=== PATIENT | female | born 1960 | race Caucasian/White ===

== ENCOUNTER → 2017-12-31 00:39 | Outpatient (CLI) | payer MEDICAID, SELFPAY ==
--- NOTE | 2017-12-31 08:20 | DI.REPORT_ITS ---
SYMPTOMS/DIAGNOSIS: SCREENING, Z12.31 MAMMOGRAM: Mammograms were interpreted according to the usual protocol including computer analysis with CAD system, tomosynthesis and C view imaging. The breasts are heterogeneously dense. No dominant mass or clumped microcalcification is identified in either breast. The current examination is compared with previous examinations including November 2015 and there has been no gross interval change in appearance in comparison with the previous studies. CONCLUSION: No specific evidence of malignancy at this time. Routine screening examinations are suggested at yearly intervals in this age group according to the ACS/ACR guidelines. Category I, breast density Category C. MQSA ASSESSMENT OF FINDINGS: Negative. Category 1. Patient will receive a letter notifying them of these results. Bi-RADS category C. The breasts are heterogeneously dense, which may obscure small masses.
== END ==
PROVIDERS: PCP Family Medicine; Visit Provider Nurse Practitioner Family
DX: Z12.31 Encounter for screening mammogram for malignant neoplasm of breast (principal)
CPT/HCPCS: 77063; 77067

== ENCOUNTER 2019-03-22 14:16 | Outpatient (CLI) | payer MEDICAID, SELFPAY ==
[2019-03-22 15:10] LABS: HCT 26.3 % (36.0-46.0); HGB 8.7 g/dL (12.0-15.5); Mean Corp. HGB Concentration 33.1 g/dL (32.0-36.0); Mean Corpuscular Hemoglobin 31.1 pg (27.0-33.0); Mean Corpuscular Volume 93.9 fL (80-95); Mean Platelet Volume 9.7 fL (8.0-11.0); Platelet Count 250 x1000/uL (130-400); RBC Distribution Width 12.6 % (11.7-14.6); White Blood Cell Count 10.33 k/cumm (4.4-10.8)
== END 2019-03-22 14:36 ==
PROVIDERS: PCP Family Medicine; Visit Provider Counselor Mental Health
DX: R53.83 Other fatigue (principal); R19.5 Other fecal abnormalities
CPT/HCPCS: 36415; 85027

== ENCOUNTER 2020-05-18 11:31 | Outpatient (REF) | payer MEDICAID, SELFPAY ==
--- NOTE | 2020-05-18 09:00 | PAPFT_PTH ---
PATIENT: Mary Kay Padgett LOC: [facility] U#:[id number] AGE/SX: 59/F ROOM: RE05/18/[address]: MESHA Castellanos : 1960 BED: DIS: 05/18/2020 SPEC #: [id number] RECD: 05/18/20 12:52 STATUS: MIREYA REJose Miguel #: [id number] YOMAIRA: 05/18/20 09:[address]: Jovita Barnard DEPT: PENDING SALE TO [facility] Cytology RECD BY: Leti Ventura ENTERED: 05/18/20 12:53 SP TYPE: PAPFT OTHR DR: Irving Wheeler Tissues: 1 - CX/ENDOCX FOR PAP SMEARS Procedures: PAP THIN PREP/UVM Screening HPV DNA PROBE Comments: [id number]
== END 2020-05-18 11:51 ==
LOC: LBN 11:31
PROVIDERS: PCP Family Medicine; Visit Provider Nurse Practitioner Family
DX: Z12.4 Encounter for screening for malignant neoplasm of cervix (principal); Z11.51 Encounter for screening for human papillomavirus (HPV)
CPT/HCPCS: 88142; 87624

== ENCOUNTER 2020-05-19 11:56 | Outpatient (CLI) | payer MEDICAID, SELFPAY ==
[2020-05-19 12:21] LABS: Abs Immature Grans 0.01 10^3/uL (0.0-0.06); Absolute Basophil Count 0.03 10^3/uL (0.0-0.2); Absolute Eosinophil Count 0.02 10^3/uL (0.0-0.7); Absolute Lymphocyte Count 1.47 10^3/uL (1.2-3.4); Absolute Monocyte Count 0.28 10^3/uL (0.1-0.8); Absolute Neutrophil Count 3.22 10^3/uL (1.2-6.7); Basophils % 0.6; Eosinophils % 0.4; HCT 38.1 % (36.0-46.0); HGB 12.1 g/dL (11.2-15.7); Immature Grans % 0.2; Lymphocytes % 29.2; MCH 28.5 pg (27.0-33.0); MCHC 31.8 % (32.0-36.0); MCV 89.6 fL (80-95); MPV 9.4 fL (8.0-11.0); Monocytes % 5.6; Nucleated RBC 0 %; Platelet Count 237 10^3/uL (130-400); RBC 4.25 10^6/uL (3.93-5.22); RDW 14.9 % (11.7-14.6); RDW-SD 48.9 fL; WBC 5.03 10^3/uL (4.4-10.8)
[2020-05-19 12:40] LABS: ALT 43 U/L (14-59); AST 18 U/L (15-37); Albumin 3.8 g/dL (3.4-5.0); Alkaline Phosphatase 75 U/L (46-116); Anion Gap 6.8 mmol/L (3-11); BUN 18 mg/dL (7-18); Bilirubin, Total 0.3 mg/dL (0.2-1.0); CO2 27.2 mmol/L (21.0-32.0); Calcium 8.1 mg/dL (8.5-10.1); Chloride 106 mmol/L (98-107); Glucose 94 mg/dL (74-106); Potassium 3.8 mmol/L (3.5-5.1); Sodium 140 mmol/L (136-145); Total Protein 6.7 g/dL (6.4-8.2)
== END 2020-05-19 12:16 ==
PROVIDERS: PCP Family Medicine; Visit Provider Internal Medicine Hematology & Oncology
DX: C49.A3 Gastrointestinal stromal tumor of small intestine (principal)
CPT/HCPCS: 36415; 80053; 85025

== ENCOUNTER 2020-05-31 02:20 | Outpatient (CLI) | payer MEDICAID, SELFPAY ==
--- NOTE | 2020-05-31 07:30 | DI.MAMMO_ITS ---
EXAM: MG MAMMO SCREENING CLINICAL HISTORY: screening,z12.39 TECHNIQUE: Bilateral full field digital CC and MLO mammographic images were obtained with 3D tomosyn thesis and utilizing computer aided detection (CAD). COMPARISON: Available for comparison. FINDINGS: Masses/Architectural Distortion: None seen. Microcalcifications: No suspicious pleomorphic-type are seen. Skin Thickening/Nipple Retraction: None. IMPRESSION: 1. No significant interval change with no specific features of malignancy noted. 2. Unless there is more urgent need, screening mammography is recommended, as per [place] [employer] guidelines. BI-RADS Category 1 - Negative Breast Density - Category C - Heterogeneously dense Breast density category C or D implies that the patient has dense breast tissue. Dense breast tissue is very common and is not abnormal but dense breast tissue can make it harder to find cancer on a ma mmogram. Also, dense breast tissue may increase their breast cancer risk. This information about the result of the mammogram report was provided to the patient to raise their awareness. Use this report when you speak with the patient about their risks for breast cancer, which includes their family hist ory. At that time, you may recommend for more screening tests (Ultrasound or MRI) as they might be us eful based on their risk. A negative radiographic report should not delay biopsy if a dominant or clinically suspicious mass is present. Up to ten percent of cancers are not identified on mammography. A negative report may reinforce clinical impression. Adenosis and dense breasts may obscure an underlying neoplasm. False positive reports average 6 to 10%. Patient will receive a letter notifying them of these results.
== END 2020-05-31 02:40 ==
PROVIDERS: PCP Family Medicine; Visit Provider Nurse Practitioner Family
DX: Z12.31 Encounter for screening mammogram for malignant neoplasm of breast (principal)
CPT/HCPCS: 77063; 77067

== ENCOUNTER 2020-12-01 04:13 | Outpatient (CLI) | payer MEDICAID, SELFPAY ==
[2020-12-01 13:28] LABS: Abs Immature Grans 0.01 10^3/uL (0.0-0.06); Absolute Basophil Count 0.01 10^3/uL (0.0-0.2); Absolute Eosinophil Count 0.05 10^3/uL (0.0-0.7); Absolute Lymphocyte Count 1.48 10^3/uL (1.2-3.4); Absolute Monocyte Count 0.23 10^3/uL (0.1-0.8); Absolute Neutrophil Count 2.97 10^3/uL (1.2-6.7); Basophils % 0.2; Eosinophils % 1.1; HGB 12.8 g/dL (11.2-15.7); Immature Grans % 0.2; Lymphocytes % 31.2; MCH 32.5 pg (27.0-33.0); MCHC 33.7 % (32.0-36.0); MCV 96.4 fL (80-95); MPV 8.9 fL (8.0-11.0); Monocytes % 4.8; Neutrophils % 62.5; Nucleated RBC 0 %; Platelet Count 205 10^3/uL (130-400); RBC 3.94 10^6/uL (3.93-5.22); RDW 13.1 % (11.7-14.6); RDW-SD 47.1 fL; WBC 4.75 10^3/uL (4.4-10.8)
[2020-12-01 13:41] LABS: ALT 48 U/L (14-59); AST 31 U/L (15-37); Albumin 3.9 g/dL (3.4-5.0); Alkaline Phosphatase 57 U/L (46-116); Anion Gap 6.3 mmol/L (3-11); BUN 11 mg/dL (7-18); Bilirubin, Total 0.4 mg/dL (0.2-1.0); CO2 28.7 mmol/L (21.0-32.0); CREATININE 0.6 mg/dL (0.55-1.02); Calcium 8.5 mg/dL (8.5-10.1); Chloride 106 mmol/L (98-107); Glucose 154 mg/dL (74-106); Potassium 3.8 mmol/L (3.5-5.1); Sodium 141 mmol/L (136-145); Total Protein 6.6 g/dL (6.4-8.2)
== END 2020-12-01 04:14 | disposition home or self-care (01) ==
LOC: LBO 04:13
PROVIDERS: PCP Family Medicine; Visit Provider Internal Medicine Hematology & Oncology
DX: C49.A3 Gastrointestinal stromal tumor of small intestine (principal)
CPT/HCPCS: 36415; 80053; 85025

== ENCOUNTER 2020-12-14 04:47 | Outpatient (CLI) | payer MEDICAID, SELFPAY ==
[2020-12-14 17:26] LABS: Abs Immature Grans 0.01 10^3/uL (0.0-0.06); Absolute Basophil Count 0.01 10^3/uL (0.0-0.2); Absolute Eosinophil Count 0.06 10^3/uL (0.0-0.7); Absolute Monocyte Count 0.28 10^3/uL (0.1-0.8); Absolute Neutrophil Count 2.58 10^3/uL (1.2-6.7); Basophils % 0.2; Eosinophils % 1.2; HCT 35.4 % (36.0-46.0); HGB 12.2 g/dL (11.2-15.7); Immature Grans % 0.2; Lymphocytes % 40.5; MCH 32.6 pg (27.0-33.0); MCHC 34.5 % (32.0-36.0); MCV 94.7 fL (80-95); MPV 10.1 fL (8.0-11.0); Monocytes % 5.7; Neutrophils % 52.2; Nucleated RBC 0 %; Platelet Count 201 10^3/uL (130-400); RBC 3.74 10^6/uL (3.93-5.22); RDW 13.5 % (11.7-14.6); RDW-SD 47.1 fL; WBC 4.94 10^3/uL (4.4-10.8)
[2020-12-14 18:16] LABS: ALT 49 U/L (14-59); AST 31 U/L (15-37); Albumin 3.9 g/dL (3.4-5.0); Alkaline Phosphatase 56 U/L (46-116); BUN 12 mg/dL (7-18); Bilirubin, Total 0.3 mg/dL (0.2-1.0); CREATININE 0.6 mg/dL (0.55-1.02); Calcium 8.9 mg/dL (8.5-10.1); Chloride 107 mmol/L (98-107); Glucose 90 mg/dL (74-106); Potassium 3.8 mmol/L (3.5-5.1); Sodium 143 mmol/L (136-145); Total Protein 6.2 g/dL (6.4-8.2)
== END 2020-12-14 04:48 | disposition home or self-care (01) ==
PROVIDERS: PCP Family Medicine; Visit Provider Internal Medicine Hematology & Oncology
DX: C49.A3 Gastrointestinal stromal tumor of small intestine (principal)
CPT/HCPCS: 36415; 80053; 85025

== ENCOUNTER 2020-12-29 02:18 | Outpatient (CLI) | payer MEDICAID, SELFPAY ==
[2020-12-29 12:55] LABS: Absolute Basophil Count 0.02 10^3/uL (0.0-0.2); Absolute Eosinophil Count 0.06 10^3/uL (0.0-0.7); Absolute Lymphocyte Count 1.63 10^3/uL (1.2-3.4); Absolute Monocyte Count 0.32 10^3/uL (0.1-0.8); Absolute Neutrophil Count 2.28 10^3/uL (1.2-6.7); Basophils % 0.5; Eosinophils % 1.4; HCT 34.1 % (36.0-46.0); HGB 11.4 g/dL (11.2-15.7); Lymphocytes % 37.8; MCH 32.8 pg (27.0-33.0); MCHC 33.4 % (32.0-36.0); MPV 8.8 fL (8.0-11.0); Monocytes % 7.4; Neutrophils % 52.9; Nucleated RBC 0 %; Platelet Count 196 10^3/uL (130-400); RBC 3.48 10^6/uL (3.93-5.22); RDW 13.8 % (11.7-14.6); RDW-SD 49.7 fL; WBC 4.31 10^3/uL (4.4-10.8)
[2020-12-29 13:07] LABS: ALT 47 U/L (14-59); AST 29 U/L (15-37); Albumin 3.7 g/dL (3.4-5.0); Alkaline Phosphatase 54 U/L (46-116); Anion Gap 6.3 mmol/L (3-11); BUN 13 mg/dL (7-18); Bilirubin, Total 0.4 mg/dL (0.2-1.0); CO2 28.7 mmol/L (21.0-32.0); CREATININE 0.6 mg/dL (0.55-1.02); Calcium 8.4 mg/dL (8.5-10.1); Chloride 108 mmol/L (98-107); Glucose 128 mg/dL (74-106); Potassium 3.9 mmol/L (3.5-5.1); Sodium 143 mmol/L (136-145); Total Protein 6.1 g/dL (6.4-8.2)
== END 2020-12-29 02:19 | disposition home or self-care (01) ==
LOC: LBO 02:18
PROVIDERS: PCP Family Medicine; Visit Provider Internal Medicine Hematology & Oncology
DX: C49.A3 Gastrointestinal stromal tumor of small intestine (principal)
CPT/HCPCS: 36415; 80053; 85025

== ENCOUNTER 2021-01-19 04:53 | Outpatient (CLI) | payer MEDICAID, SELFPAY ==
--- NOTE | 2021-01-19 | DI.CT_ITS ---
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 TECHNIQUE: Imaging Protocol: Axial computed tomography images with coronal and sagittal reformatted images were created and reviewed CONTRAST MATERIAL: Intravenous: Omnipaque 350 Contrast volume:100 ml Oral: yes / COMPARISON: CT CT ABD AND PELVIS WITH CONTRAS from 11/22/[address] CHEST W/ CNTRST from 07/25/2020 FINDINGS: CHEST: Tracheobronchial tree: Patent where visualized. Mediastinum and [place]: No dominant adenopathy or fluid collection. Pulmonary parenchyma: Stable small peripheral nodules right middle and lower lobes. No new nodules. N o infiltrates. Pleura: No effusion or pneumothorax. Lymph nodes: Within normal limits. Aorta: Thoracic portion non-dilated. Heart: Normal size. Bones: Unremarkable for age. No lytic or blastic lesions. ABDOMEN: Liver: Normal density. No measurable mass. Gallbladder and biliary tract: No radiodense calculus or dilation. Pancreas: Resection of head of pancreas. Adjacent surgical clips. Normal density, no abnormal calcifi cations or inflammatory process. Spleen: Normal. Kidneys: Normal size, contour and axis. No radiodense stones or obstructive uropathy. No masses seen. Adrenal glands: No masses seen. Aorta: Abdominal portion non-dilated. Lymph nodes: Within normal limits. Soft tissues: Unremarkable. Stomach and bowel: Prior resection of portion of stomach and duodenum. Anastomosis appears intact. PELVIS: Bladder: Symmetric distention, no gross wall thickening. Bowel: No obstruction or bowel wall thickening. Transverse, descending and sigmoid colon nearly compl etely empty. Few non-opacified loops of small bowel are present. Normal appendix. Peritoneal cavity: No ascites, collection or mesenteric inflammatory response. Bones: Mild degenerative changes and scoliosis. Reproductive organs: Within normal limits. IMPRESSION: No evidence of adenopathy or metastatic disease in the chest abdomen or pelvis.. RADIATION DOSE DELIVERED: 948.4mGy.cm Total DLP DATA REPOSITORY: All CT scans at this facility are submitted to the National Radiology Data Registry (NRDR) Dose Index Registry (DIR) with the [employer] (ACR). RADIATION OPTIMIZATION: All CT scans at this facility use at least one of these dose optimization te chniques: automated exposure control; mA and/or kV adjustment per patient size (includes targeted exa ms where dose is matched to clinical indication); or iterative reconstruction.
[2021-01-19] MEDS: Omnipaque 350 MG/ML 100 ML BTL IJ (13:20)
[2021-01-19] MEDS: Normal Saline Flush 10 ML SYR IVP (13:21)
[2021-01-19] MEDS: Breeza Beverage 473 ML BTL PO (13:22)
[2021-01-19] MEDS: Omnipaque 350 MG/ML 50 ML BTL PO (13:26)
== END 2021-01-19 05:13 ==
PROVIDERS: PCP Family Medicine; Visit Provider Nurse Practitioner Family
DX: C49.A3 Gastrointestinal stromal tumor of small intestine (principal); D64.9 Anemia, unspecified
CPT/HCPCS: 74177; 71260; J3490; Q9967

== ENCOUNTER 2021-01-26 02:24 | Outpatient (CLI) | payer MEDICAID, SELFPAY ==
[2021-01-26 12:48] LABS: Abs Immature Grans 0.01 10^3/uL (0.0-0.06); Absolute Basophil Count 0.02 10^3/uL (0.0-0.2); Absolute Eosinophil Count 0.02 10^3/uL (0.0-0.7); Absolute Lymphocyte Count 1.52 10^3/uL (1.2-3.4); Absolute Monocyte Count 0.26 10^3/uL (0.1-0.8); Absolute Neutrophil Count 2.17 10^3/uL (1.2-6.7); Basophils % 0.5; Eosinophils % 0.5; HCT 34.9 % (36.0-46.0); HGB 11.8 g/dL (11.2-15.7); Immature Grans % 0.3; MCH 32.8 pg (27.0-33.0); MCHC 33.8 % (32.0-36.0); MCV 96.9 fL (80-95); MPV 9.2 fL (8.0-11.0); Monocytes % 6.5; Neutrophils % 54.2; Nucleated RBC 0 %; Platelet Count 193 10^3/uL (130-400); RDW-SD 50.2 fL
[2021-01-26 13:02] LABS: ALT 40 U/L (14-59); AST 29 U/L (15-37); Albumin 3.7 g/dL (3.4-5.0); Alkaline Phosphatase 53 U/L (46-116); Anion Gap 2.6 mmol/L (3-11); BUN 11 mg/dL (7-18); Bilirubin, Total 0.5 mg/dL (0.2-1.0); CO2 30.4 mmol/L (21.0-32.0); CREATININE 0.7 mg/dL (0.55-1.02); Calcium 8.2 mg/dL (8.5-10.1); Chloride 108 mmol/L (98-107); Glucose 116 mg/dL (74-106); Potassium 3.6 mmol/L (3.5-5.1); Sodium 141 mmol/L (136-145); Total Protein 6.2 g/dL (6.4-8.2)
== END 2021-01-26 02:25 | disposition home or self-care (01) ==
LOC: LBO 02:25
PROVIDERS: PCP Family Medicine; Visit Provider Internal Medicine Hematology & Oncology
DX: C49.A3 Gastrointestinal stromal tumor of small intestine (principal)
CPT/HCPCS: 36415; 80053; 85025

== ENCOUNTER 2021-03-09 03:34 | Outpatient (CLI) | payer MEDICAID, SELFPAY ==
[2021-03-09 13:07] LABS: Absolute Basophil Count 0.01 10^3/uL (0.0-0.2); Absolute Eosinophil Count 0.01 10^3/uL (0.0-0.7); Absolute Lymphocyte Count 1.38 10^3/uL (1.2-3.4); Absolute Monocyte Count 0.24 10^3/uL (0.1-0.8); Absolute Neutrophil Count 2.17 10^3/uL (1.2-6.7); Basophils % 0.3; Eosinophils % 0.3; HCT 33.6 % (36.0-46.0); HGB 11.3 g/dL (11.2-15.7); Lymphocytes % 36.2; MCH 33.4 pg (27.0-33.0); MCHC 33.6 % (32.0-36.0); MCV 99.4 fL (80-95); Monocytes % 6.3; Neutrophils % 56.9; Nucleated RBC 0 %; Platelet Count 174 10^3/uL (130-400); RBC 3.38 10^6/uL (3.93-5.22); RDW 13.9 % (11.7-14.6); RDW-SD 51.4 fL; WBC 3.81 10^3/uL (4.4-10.8)
[2021-03-09 13:34] LABS: ALT 41 U/L (14-59); AST 33 U/L (15-37); Albumin 3.9 g/dL (3.4-5.0); Alkaline Phosphatase 53 U/L (46-116); Anion Gap 5.3 mmol/L (3-11); BUN 10 mg/dL (7-18); Bilirubin, Total 0.6 mg/dL (0.2-1.0); CO2 29.7 mmol/L (21.0-32.0); CREATININE 0.6 mg/dL (0.55-1.02); Calcium 9.1 mg/dL (8.5-10.1); Chloride 105 mmol/L (98-107); Ferritin 90 ng/mL (8-252); Glucose 90 mg/dL (74-106); Potassium 3.7 mmol/L (3.5-5.1); Sodium 140 mmol/L (136-145); Total Protein 6.4 g/dL (6.4-8.2)
[2021-03-09 13:35] LABS: Iron 103 ug/dL (50-170); Total Iron Binding Capacity 277 ug/dL (250-450)
[2021-03-12 01:48] LABS: Vitamin D 25 Total 22.8 ng/mL (30-100)
== END 2021-03-09 03:35 | disposition home or self-care (01) ==
LOC: LBO 03:34
PROVIDERS: PCP Family Medicine; Visit Provider Internal Medicine Hematology & Oncology
DX: C49.A3 Gastrointestinal stromal tumor of small intestine (principal)
CPT/HCPCS: 36415; 80053; 82306; 82728; 83540; 83550; 85025

== ENCOUNTER 2021-04-27 03:11 | Outpatient (CLI) | payer MEDICAID, SELFPAY ==
[2021-04-27 09:41] LABS: Abs Immature Grans 0.01 10^3/uL (0.0-0.06); Absolute Basophil Count 0.02 10^3/uL (0.0-0.2); Absolute Eosinophil Count 0.01 10^3/uL (0.0-0.7); Absolute Lymphocyte Count 0.84 10^3/uL (1.2-3.4); Absolute Monocyte Count 0.41 10^3/uL (0.1-0.8); Absolute Neutrophil Count 1.79 10^3/uL (1.2-6.7); Basophils % 0.6; Eosinophils % 0.3; HCT 36.4 % (36.0-46.0); HGB 12.1 g/dL (11.2-15.7); Immature Grans % 0.3; Lymphocytes % 27.3; MCH 33.6 pg (27.0-33.0); MCHC 33.2 % (32.0-36.0); MCV 101.1 fL (80-95); Monocytes % 13.3; Neutrophils % 58.2; Nucleated RBC 0 %; Platelet Count 183 10^3/uL (130-400); RDW 14.1 % (11.7-14.6); RDW-SD 53.5 fL; WBC 3.08 10^3/uL (4.4-10.8)
[2021-04-27 09:55] LABS: ALT 45 U/L (14-59); AST 31 U/L (15-37); Albumin 3.8 g/dL (3.4-5.0); Alkaline Phosphatase 47 U/L (46-116); BUN 11 mg/dL (7-18); Bilirubin, Total 0.9 mg/dL (0.2-1.0); CREATININE 0.7 mg/dL (0.55-1.02); Calcium 8.5 mg/dL (8.5-10.1); Chloride 104 mmol/L (98-107); Glucose 123 mg/dL (74-106); Sodium 138 mmol/L (136-145); Total Protein 6.8 g/dL (6.4-8.2)
== END 2021-04-27 03:12 | disposition home or self-care (01) ==
LOC: LBO 03:12
PROVIDERS: PCP Family Medicine; Visit Provider Internal Medicine Hematology & Oncology
DX: C49.A3 Gastrointestinal stromal tumor of small intestine (principal); R53.83 Other fatigue
CPT/HCPCS: 36415; 80053; 84443; 85025

== ENCOUNTER 2021-06-04 03:32 | Outpatient (CLI) | payer MEDICAID, SELFPAY ==
[2021-06-04 09:56] LABS: Abs Immature Grans 0.01 10^3/uL (0.0-0.06); Absolute Basophil Count 0.02 10^3/uL (0.0-0.2); Absolute Eosinophil Count 0.05 10^3/uL (0.0-0.7); Absolute Lymphocyte Count 1.53 10^3/uL (1.2-3.4); Absolute Monocyte Count 0.28 10^3/uL (0.1-0.8); Absolute Neutrophil Count 2.62 10^3/uL (1.2-6.7); Basophils % 0.4; Eosinophils % 1.1; HCT 42.3 % (36.0-46.0); Immature Grans % 0.2; Lymphocytes % 33.9; MCH 32.9 pg (27.0-33.0); MCHC 33.1 % (32.0-36.0); MCV 99.3 fL (80-95); MPV 10.3 fL (8.0-11.0); Monocytes % 6.2; Neutrophils % 58.2; Nucleated RBC 0 %; Platelet Count 243 10^3/uL (130-400); RBC 4.26 10^6/uL (3.93-5.22); RDW-SD 44.7 fL; WBC 4.51 10^3/uL (4.4-10.8)
[2021-06-04 10:09] LABS: ALT 46 U/L (14-59); AST 29 U/L (15-37); Alkaline Phosphatase 47 U/L (46-116); Anion Gap 8.9 mmol/L (3-11); BUN 10 mg/dL (7-18); Bilirubin, Total 0.4 mg/dL (0.2-1.0); CO2 28.1 mmol/L (21.0-32.0); CREATININE 0.5 mg/dL (0.55-1.02); Calcium 8.7 mg/dL (8.5-10.1); Chloride 106 mmol/L (98-107); Glucose 87 mg/dL (74-106); Potassium 3.9 mmol/L (3.5-5.1); Sodium 143 mmol/L (136-145); Total Protein 7.1 g/dL (6.4-8.2)
[2021-06-04 11:51] LABS: Iron 83 ug/dL (50-170); Total Iron Binding Capacity 311 ug/dL (250-450); Transferrin Sat 27 % (15-50)
[2021-06-04 12:04] LABS: Ferritin 40 ng/mL (8-252); TSH 2.49 uIU/mL (0.36-3.74)
[2021-06-04 12:14] LABS: Vitamin D 25 Total 51.5 ng/mL (30-100)
== END 2021-06-04 03:33 | disposition home or self-care (01) ==
PROVIDERS: PCP Family Medicine; Visit Provider Internal Medicine Hematology & Oncology
DX: C49.A3 Gastrointestinal stromal tumor of small intestine (principal); D53.9 Nutritional anemia, unspecified; R53.83 Other fatigue
CPT/HCPCS: 36415; 80053; 82306; 82728; 83540; 83550; 84443; 85025

== ENCOUNTER 2021-08-01 01:02 | Outpatient (CLI) | payer MEDICAID, SELFPAY ==
[2021-08-01 08:04] LABS: Abs Immature Grans 0.01 10^3/uL (0.0-0.06); Absolute Basophil Count 0.01 10^3/uL (0.0-0.2); Absolute Eosinophil Count 0.03 10^3/uL (0.0-0.7); Absolute Lymphocyte Count 1.45 10^3/uL (1.2-3.4); Absolute Neutrophil Count 2.62 10^3/uL (1.2-6.7); Basophils % 0.2; Eosinophils % 0.7; HGB 12.9 g/dL (11.2-15.7); Immature Grans % 0.2; Lymphocytes % 32.1; MCH 31.9 pg (27.0-33.0); MCHC 33.1 % (32.0-36.0); MCV 96.3 fL (80-95); MPV 10.2 fL (8.0-11.0); Monocytes % 8.8; Nucleated RBC 0 %; Platelet Count 204 10^3/uL (130-400); RBC 4.05 10^6/uL (3.93-5.22); RDW 13.3 % (11.7-14.6); RDW-SD 47.8 fL; WBC 4.52 10^3/uL (4.4-10.8)
[2021-08-01 08:33] LABS: ALT 45 U/L (14-59); AST 36 U/L (15-37); Albumin 3.9 g/dL (3.4-5.0); Alkaline Phosphatase 47 U/L (46-116); BUN 14 mg/dL (7-18); Bilirubin, Total 0.5 mg/dL (0.2-1.0); CREATININE 0.5 mg/dL (0.55-1.02); Calcium 8.5 mg/dL (8.5-10.1); Chloride 107 mmol/L (98-107); Glucose 98 mg/dL (74-106); Potassium 4.5 mmol/L (3.5-5.1); Sodium 142 mmol/L (136-145); Total Protein 6.8 g/dL (6.4-8.2)
[2021-08-01] MEDS: Omnipaque 350 MG/ML 50 ML BTL IJ (09:10)
--- NOTE | 2021-08-01 09:43 | DI.CT_ITS ---
Exam(s) CT CHEST/ABD/PEL W EXAM: CT CHEST/ABD/PEL W CLINICAL HISTORY: GI STROMMAL TUMOR,ANEMIA,VIT D DEF,ASSESS TREATMENT RESPONSE,C49.A3. TECHNIQUE: Imaging Protocol: Axial computed tomography images with coronal and sagittal reformatted images were created and reviewed CONTRAST MATERIAL: Intravenous: Omnipaque 350 Contrast volume:100 ml Oral: Yes. Contrast was also administered for bowel opacification. COMPARISON: CT CT CHEST/ABD/PEL W from 01/19/2021 FINDINGS: CHEST: LUNGS: There is an unchanged by 4 millimeter pleural based nodule in the lateral basal segment of the right lower lobe, unchanged. Also unchanged a 3 millimeter noncalcified pleural-based nodule in the lateral aspect of the right middle lobe. There are no new right lung findings. No new left lung fi ndings. No new findings in trachea and mainstem bronchi. There are no pleural effusions. MEDIASTINUM: There is no hilar nor mediastinal adenopathy. Nodules again noted in both thyroid lobes. CARDIAC: Heart size is normal. There is no pericardial effusion.Caliber of the thoracic aorta is wit hin normal limits. OSSEOUS: No significant osseous lesions.. ABDOMEN: There is no ascites. LIVER: There are no focal hepatic lesions nor dilatation of intrahepatic ducts. GALLBLADDER/BILIARY: Gallbladder is again noted to be surgically absent. PANCREAS: Again noted is evidence of resection of the pancreatic head and gastrojejunostomy. Also bi liary-enterostomy. Pancreatic duct diameter is slightly prominent but unchanged no new pancreatic ma sses. No new regional adenopathy the evident. No new vascular encasement. SPLEEN: Spleen is not enlarged. There are no intrasplenic lesions. Splenic and portal veins are browne nt. ADRENALS: There are no significant adrenal masses. KIDNEYS: No calculi nor hydronephrosis. No solid renal masses. No cysts evident. ABDOMINAL AORTA: Abdominal aorta is not enlarged. LYMPH NODES: There is no retroperitoneal nor paraaortic adenopathy. ABDOMINAL WALL: No evidence of significant anterior abdominal wall nor inguinal hernia. GI: There is no evidence of bowel obstruction. PELVIS: LYMPH NODES: There is no intrapelvic nor inguinal adenopathy. GI: No evidence of appendicitis.No evidence of sigmoid diverticulitis. URINARY BLADDER: No calculi nor masses evident REPRODUCTIVE: Uterus and adnexal regions appear unchanged. There are dilated bilateral periuterine v eins which drain into prominent bilateral gonadal veins. On the left side this enlarged gonadal vein drains into the left renal vein. On the right side the enlarged gonadal vein drains into the right renal vein just proximal to its joining the IVC. There is no free fluid in the pelvis. OSSEOUS: No significant osseous lesions. IMPRESSION: 1. Continued stable appearance with benign-appearing right lung findings again noted and no evidence of new metastatic disease in the chest, abdomen, and pelvis. There is no abnormal tissue or adenopat hy in the region of the resected pancreatic head. Gallbladder surgically absent. 2. Bilateral pelvic congestion syndrome again noted. There are dilated veins on both sides of the ut erus and these drain into dilated gonadal veins on each side which then cells drain into the bilatera l renal veins. This finding is also unchanged. RADIATION DOSE DELIVERED: 1,078.24mGy.cm Total DLP DATA REPOSITORY: All CT scans at this facility are submitted to the National Radiology Data Registry (NRDR) Dose Index Registry (DIR) with the [employer] (ACR). RADIATION OPTIMIZATION: All CT scans at this facility use at least one of these dose optimization te chniques: automated exposure control; mA and/or kV adjustment per patient size (includes targeted exa ms where dose is matched to clinical indication); or iterative reconstruction.
[2021-08-01] MEDS: Omnipaque 350 MG/ML 100 ML BTL IJ (09:44)
[2021-08-01] MEDS: Normal Saline Flush 10 ML SYR IVP (09:48)
[2021-08-02 05:27] LABS: Vitamin D 25 Total 36.6 ng/mL (30-100)
== END 2021-08-01 01:22 ==
PROVIDERS: PCP Family Medicine; Visit Provider Internal Medicine Hematology & Oncology
DX: C49.A3 Gastrointestinal stromal tumor of small intestine (principal); E55.9 Vitamin D deficiency, unspecified; D53.9 Nutritional anemia, unspecified
CPT/HCPCS: 74177; 80053; 82306; 71260; 85025; J3490; Q9967

== ENCOUNTER 2021-11-13 03:32 | Outpatient (CLI) | payer MEDICAID, SELFPAY ==
[2021-11-13 12:35] LABS: Abs Immature Grans 0.01 10^3/uL (0.0-0.06); Absolute Basophil Count 0.02 10^3/uL (0.0-0.2); Absolute Eosinophil Count 0.09 10^3/uL (0.0-0.7); Absolute Lymphocyte Count 1.42 10^3/uL (1.2-3.4); Absolute Monocyte Count 0.28 10^3/uL (0.1-0.8); Absolute Neutrophil Count 2.92 10^3/uL (1.2-6.7); Basophils % 0.4; Eosinophils % 1.9; HCT 35.6 % (36.0-46.0); HGB 12.2 g/dL (11.2-15.7); Immature Grans % 0.2; MCH 32.8 pg (27.0-33.0); MCHC 34.3 % (32.0-36.0); MCV 96 fL (80-95); Monocytes % 5.9; Neutrophils % 61.6; Platelet Count 190 10^3/uL (130-400); RBC 3.72 10^6/uL (3.93-5.22); RDW 13.2 % (11.7-14.6); RDW-SD 46.9 fL; WBC 4.74 10^3/uL (4.4-10.8)
[2021-11-13 12:54] LABS: ALT 54 U/L (14-59); AST 33 U/L (15-37); Albumin 3.9 g/dL (3.4-5.0); Alkaline Phosphatase 46 U/L (46-116); Anion Gap 7.7 mmol/L (3-11); BUN 16 mg/dL (7-18); Bilirubin, Total 0.3 mg/dL (0.2-1.0); CO2 28.3 mmol/L (21.0-32.0); CREATININE 0.6 mg/dL (0.55-1.02); Chloride 103 mmol/L (98-107); Glucose 88 mg/dL (74-106); Potassium 3.7 mmol/L (3.5-5.1); Sodium 139 mmol/L (136-145); Total Protein 6.5 g/dL (6.4-8.2)
== END 2021-11-13 03:33 | disposition home or self-care (01) ==
LOC: LBO 03:32
PROVIDERS: PCP Family Medicine; Visit Provider Internal Medicine Hematology & Oncology
DX: C49.A3 Gastrointestinal stromal tumor of small intestine (principal)
CPT/HCPCS: 36415; 80053; 85025

== ENCOUNTER → 2022-02-01 00:21 | Outpatient (CLI) | payer MEDICAID, SELFPAY ==
--- OUTSIDE RECORDS SUMMARY | 2022-02-01 00:23 | XMS_ITS | Clinical Summary ---
:1960 Author Organization [facility] [place] [address] Care Team Providers Name Role Phone Irving Wheeler MD Primary Care Provider [phone] Allergies No known active allergies Medications Medication Sig Dispensed Refills Start Date End Date Status cholecalciferol, Take 4,000 Units 0 Active Vitamin D3, 50 mcg by mouth daily. (2,000 unit) Capsule ferrous sulfate (IRON Take 50 mg by 0 Active ORAL) mouth daily. Actually chelated amino acid Iron omeprazole (PriLOSEC) Take 1 capsule by 90 capsule 3 0 Active 40 mg Capsule, mouth daily. Delayed Release(E.C.) Additional Information Patient not taking. Reported on 08/03/2021 multivitamin (THERAGRAN) Take 1 tablet by mouth 0 Active Tablet daily. traMADoL (Ultram) 50 mg 1 tablet 0 03/01/2020 Active Tablet sucralfate (Carafate) 1 Every 6 hours. 0 07/28/2019 Active gram Tablet qajigo-tqujvplc-cdbdtmw as directed 0 03/01/[address] (Audrey 24) 24,000-76,000 -120,000 unit Capsule, Delayed Release(E.C.) esomeprazole (NexIUM) 40 Every 12 hours. 0 0 Active mg Capsule, Delayed Release(E.C.) docusate sodium (Colace) 1 capsule 0 03/29/2020 Active 100 mg Capsule acetaminophen (Tylenol) 2 tablets 0 03/01/2020 Active 500 mg Tablet imatinib (Gleevec) 100 mg Take 2 tablets (200 mg) by 120 tablet 5 11/13/2021 Active tabletIndications: mouth daily. Take with food adjuvant therapy of and a large glass of water CD117+ gastrointest to decrease stomach stromal tumor irritation. Indications: adjuvant therapy following surgical removal of Kit (CD117) positive gastrointestinal stromal tumor Active Problems Problem Noted Date Moderate protein-calorie malnutrition 03/29/2020 Gastroparesis 02/29/2020 Overview: Post-whipple Gastroparesis / Delayed Gas tric Emptying GIST (gastrointestinal stromal tumor), malignant 02/07 Anemia 12/07/2019 Disorder of thyroid gland 12/07/2019 Arthritis 12/07/2019 Tinnitus 12/07/2019 Vitamin D deficiency 12/07/2019 Osteoarthrosis 12/07/2019 Malignant gastrointestinal stromal tumor (GIST) of sma ll intestine 12/04/2019 Resolved Problems Problem Noted Date Resolved Date Neutropenic fever 02/01/2020 02/04/2020 Encounters Date Type Specialty Care Team Description 11/13/2021 TH Visit Hematology and Morris Dozier stinal stromal tumor (GIST) of duodenum; (TeleHealth) Oncology MD Angel Vitamin D defic iency 11/13/2021 Telephone Hematology and [facility] Medication Refill Oncology Esthela RN (imatinib) 11/13/2021 Specialty Pharmacy [facility] Marielena Anaya [facility] from Last 3 Months Immunizations Name Administration Dates Next Due Influenza Vaccine PF, Quadrivalent 03/01/2020 Moderna Covid-19 (Irrigation Manager 100mcg) Vaccine 03/10/2021 Social History Tobacco Use Types Packs/Day Years Used Date Former Smoker Cigarettes 0.5 Quit: 1994 Smokeless Tobacco: Never Used Comments: never vape Alcohol Use Standard Drinks/Week Comments Not Currently 0 (1 standard drink = 0.6 oz pure alcoho l) none since 05/12/2019 Alcohol Habits Answer Date Recorded How often do you have a drink containing alcohol? Not asked How many drinks containing alcohol do you have on a Not aske d typical day when you are drinking? How often do you have six or more drinks on one Not asked occasion? Comment: none since 05/12/2019 11/25/2019 Sex Assigned at Date Recorded Not on file Last Filed Vital Signs Vital Sign Reading Time Taken Comments Blood Pressure 108/60 08/07/2021 1:49 PM EDT Pulse 62 08/07/2021 1:49 PM EDT Temperature 36.1 ??C (97 ??F) 08/07/2021 1:49 PM EDT Respiratory Rate 16 08/07/2021 1:49 PM EDT Oxygen Saturation 100% 08/07/2021 1:49 PM EDT Inhaled Oxygen Concentration - - Weight 51.2 kg (112 lb 12.8 oz) 08/07/2021 1:49 PM EDT Height 160 cm (5' 2.99) 08/07/2021 1:49 PM EDT Body Mass Index 19.99 08/07/2021 1:49 PM EDT Plan of Treatment Upcoming Encounters Date Type Specialty Care Team Description 02/15/2022 Office Visit Hematology and Oncology Morris Dozier MD [facility] ONCOLOGY [place], [place] [address] (Wo rk) Health Maintenance Due Date Last Done Comments HIV screen 1980 Hepatitis C Screening 1980 Tdap adult 1981 Tetanus vaccine 1981 HPV test 1992 PAP Smear 1992 Breast Cancer Share Decision Needed 2002 Colonoscopy 2007 Breast Cancer screening 2012 Zoster vaccine (1 of 2) 2012 Advance Directive 2017 Covid-19 Vaccine (2 - Moderna series) 04/07/2021 03/10/2021 Influenza (Flu) vaccine (1 of 1 - Influenza standard 01/10/2022 03/01/2020 series) Goals Goal Patient Goal Associated Recent Patient-Stated? Author Type Problems Progress DH Home Medication Patient No Tamera ky, Compliance and Facing Brandt Morin Understanding Action Plan [facility] Note: Formatting of this note might be d ifferent from the original. Remain 95% adherent to Imatinib therapy without significant neutropenia as assessed by CBC labs in clinic every 1 to 3 months Medical Devices Implanted Type Area Pneumatic Tube Repairer Device Identifier Shelf Model / Expiration Serial / Date Lot Mesh,Hrna,Sepraf,6x5in ([id number]) - [id number] IMPLANTS N/A: [employer] [facility] - [id number] 03/11/2022 [id number] / Implanted: Qty: 1 on 02/23/2020 by Emely Galdamez MD at [facility] Abdomen SANOFI / [id number] Procedures Procedure Name Priority Date/Time Associated Diagnosis Comme nts LAB SCAN 11/13/2021 12:00 AM Results for this EDT procedure are i n the results section . from Last 3 Months Results SCAN DOC: LAB (11/13/2021 12:00 AM EDT) Narrative This result has an attachment that is no t available. Unknown MEDIA MGR SCAN EXT ORDR/RSLT from Last 3 Months Insurance Payer Benefit Plan / Subscriber ID Effective Dates Phone Addre ss Type Group [place] [id number] 2021-Prese [phone] [address] [facility] nt [facility] [id number] Advance Directives Latest Code Status on File Code Status Date Activated Date Inactivated Comments Attempt Cardiopulmonary Resuscitation 03/24/2020 5:01 PM 020 3:54 PM - Inpatient Code Status decision made by: Patient Attempt Cardiopulmonary Resuscitation - 02/23/2020 2:41 PM 03/01 2:48 PM Inpatient Code Status decision made by: Patient Attempt Cardiopulmonary Resuscitation - 02/01/2020 8:00 PM 020 8:08 PM Inpatient Code Status decision made by: Patient Care Teams Diesel Fleet Mechanic Relationship Specialty Start Date End Date Irving Wheeler MD PCP - General 06/23/19 [address] [place] [address]
--- OUTSIDE RECORDS SUMMARY | 2022-02-01 00:23 | XMS_ITS | Encounter Summary ---
:1960 Author Organization [facility] [address] Care Team Providers Name Role Phone Irving Wheeler MD Primary Care Provider [phone] Reason for Visit Reason Comments Medication Refill Encounter Details Date Type Department Care Team Description 11/13/2021 Specialty Pharmacy [place] [facility] [place] [address] Social History Tobacco Use Types Packs/Day Years [...] Assigned at Date Recorded Not on file documented as of this encounter Progress Notes Marielena Galdamez [facility] - 11/13/2021 9:39 AM EDT Clinical Management Plan: Refill Specialty Pharmacy Consultation; Marielena Galdamez [facility] Comprehensive Medication Management (CMM) Mary Kay Manciay Ms. Mary Kay Gonzalez is a 61 y.o. (1960) female who was contacted in regard to a specialty medication refill reminder. Contact made with patient regarding Imatinib. A review of the medication therapy was performed. The medication was refilled as scheduled, and all medication related questions and concerns were addressed. The specialty pharmacy staff will follow up with the patient 5-7 days prior to next refill. Was a change made to the Care Plan: No Allergies and Drug intolerance: No Known Allergies Medication Reconciliation Discrepancies (compared to [facility] med list) No Specialty Pharmacy Refill Questionnaire Refill Questionnaire 11/13/2021 What is the name of the specialty medication you are refilling? Imatinib Are you taking any new medications? No Any new medical condition? No Any new allergies? No Any new side effects that are bothersome? No Please explain - What date will you need this fill by? 11/17/2021 Adherence: Any missed doses? No Patient understands no changes to current drug regimen were made. Marielena Galdamez RPH 11/13/21 9:43 AM Electronically signed by Marielena Galdamez [facility] at 11/13/2021 9:43 AM EDT documented in this encounter Plan of Treatment Upcoming Encounters Date Type Specialty Care Team Description 02/15/2022 Office Visit Hematology and Oncology Morris Dozier MD [facility] ONCOLOGY [place] [address] (Wo rk) documented as of this encounter Goals Goal Patient Goal Associated Recent Patient-Stated? Author Type Problems Progress DH Home Medication Patient No Tamera calvillo, Compliance and Facing Brandt Morin Understanding Action Plan [facility] Note: Formatting of this note might be d ifferent from the original. Remain 95% adherent to Imatinib therapy without significant neutropenia as assessed by CBC labs in clinic every 1 to 3 months documented as of this encounter Visit Diagnoses Not on filedocumented in this encounter Care Teams Canceling And Cutting Control Clerk Relationship Specialty Start Date End Date Irving Wheeler MD PCP - General 06/23/[address] [place] [id number] documented as of this encounter
--- OUTSIDE RECORDS SUMMARY | 2022-02-01 00:23 | XMS_ITS | Encounter Summary ---
:1960 Author Organization [facility] [place] [address] Care Team Providers Name Role Phone Irving Wheeler MD Primary Care Provider [phone] Reason for Visit Reason Onset Date Comments Medication Refill 11/13/2021 imatinib Encounter Details Date Type Department Care Team Description 11/13/2021 Telephone Hematology/Oncology at [facility], Medication Refill [facility] RN (imatinib) [address] [place] [address] Social History Tobacco Use Types Packs/Day Years [...] on file documented as of this encounter Miscellaneous Notes Telephone Encounter - Katherin Corona RN - 11/13/2021 3:10 PM EDT .Oral Chemotherapy Check Note 11/13/2021 Mary Kaymisty Gonzalez, 1960 Prescriptions for oral chemotherapy were reviewed as follows: Oral Chemotherapy Order imatinib (Gleevec) 100 mg tablet: Order details: ?? Dose: 200 mg (100 mg tab) ?? Route: oral ?? Quantity to be dispensed #: 60 ?? Number of refills: 5 ?? Instructions: Take 2 tablets (200 mg) by mouth daily. Take with food and a large glass of water to decrease stomach irritation. ?? Cycle number and length: ongoing ?? Start date: Already on Plan of care compared to information in the medical record, including note from provider on 11/13/21 (date). The prescription was found To be complete and accurate. It was e[facility]. documented in this encounter Plan of Treatment Upcoming Encounters Date Type Specialty Care Team Description 02/15/2022 Office Visit Hematology and Oncology Morris Dozier MD [facility] [address] ONCOLOGY [place], [place] [address] (Wo rk) documented as of this encounter Goals Goal Patient Goal Associated Recent Patient-Stated? Author Type Problems Progress Home Medication Patient No Tamera calvillo, Compliance and Facing Brandt Morin Understanding Action Plan [facility] Note: Formatting of this note might be d ifferent from the original. Remain 95% adherent to Imatinib therapy without significant neutropenia as assessed by CBC labs in clinic every 1 to 3 months documented as of this encounter Visit Diagnoses Not on filedocumented in this encounter Care Teams Captain/Check Airman Relationship Specialty Start Date End Date Irving Wheeler MD PCP - General 06/23/[address] [place] [id number] documented as of this encounter
--- OUTSIDE RECORDS SUMMARY | 2022-02-01 00:24 | XMS_ITS | Encounter Summary ---
:1960 [place] [address] Care Team Providers Name Role Phone Irving Wheeler MD Primary Care Provider [phone] Reason for Visit Reason Comments Medication Management Patient Education Encounter Details Date Type Department Care Team Description 07/23/2021 Specialty Pharmacy Pharmacy at [facility] Marielena Anaya RPH Managem ent; [place] [id number] Social History Tobacco Use Types Packs/Day Years [...] of this encounter Progress Notes Marielena Galdamez RPH - 07/23/2021 3:41 PM EDT Specialty Pharmacy Consultation; Marielena Galdamez RPH Comprehensive Medication Management (CMM): Specialty Consult, Opt Out Mary Kay Manciay Diagnosis: GIST Therapy Start Date: 12/31/19 Contact in person or via telephone: phone Ms. Mary Kay Gonzalez is a 61 y.o. (1960) female who was contacted in regard to specialty medication. Spoke with patient regarding Imatinib. A review of the medication therapy was performed. The medication was refilled as scheduled, and all medication related questions and concerns were addressed. The specialty pharmacy staff will follow up with the patient 7 days prior to next refill. Is the patient willing to proceed with the Clinical Assessment? No Summary and Recommendations: The patient was feeling well today and not experiencing any side effects such as nausea, rash, or edema. She feels much better after her recent dose reduction last month and understands that it could change again. Med list reviewed with no major interactions identified. The patient is aware of the importance of lab follow up and infection prevention precautions as well as adherence to treatment. Thepatient was instructed to notify the clinic of any upcoming procedures or new medications and OTC products. Resources are available to the patient from the cancer center such as stem cleaning machine feeder consultation or social media job titles. Administration, allergies, dosage, safe storage reviewed. The pharmacy's contact information and operating hours with on-call services were given to the patient both verbally and in writing. Economic Assessment: Patient is agreeable to medication copay: Yes Copay Amount: $3 Day Supply: 30 Date Needed: 07/31/21 Therapy Assessment: Appropriate Therapy: Yes Current Medication Dosing/Route/Frequency: Imatinib 200mg PO QD Additional equipment/supplies required: no Care Plan Reviewed and Approved by Pharmacist : Yes Problem List: Patient Active Problem List Diagnosis Code ??? 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 Anemia D64.9 ??? Disorder of thyroid gland E07.9 ??? Arthritis M19.90 ??? Tinnitus H93.19 ??? Vitamin D deficiency E55.9 ??? Osteoarthrosis M19.90 ??? GIST (gastrointestinal stromal tumor), malignant C49.A0 ??? Gastroparesis K31.84 ??? Moderate protein-calorie malnutrition E44.0 Medications Reviewed: Yes Medications reconciled: No Allergies Reviewed:Yes Allergies reconciled: No Pharmacist follow-up needed: Yes Informed patient of specialty pharmacy services: Yes Welcome Packet and Rights and Responsibilities: Patient provided welcome packet/rights and responsibilities: Yes Date Confirmed: 01/31/20 Confirmation: Signature in [facility] -Patient is aware a licensed pharmacist is available 24 hours a day, 7 days a week to discuss medication-related questions or concerns: Yes -Patient verbalizes understanding of the common side effect profile of their medication. The patientis able to call 911 or seek urgent care if signs/symptoms of allergy or harmful adverse reactions occur: Yes Patient understands no changes to current drug regimen were made at the appointment and that the pharmacist is providing recommendations (summary located at top of note) for provider review and follow up. Marielena Galdamez RPH 07/23/21 7:58 PM documented in this encounter Plan of Treatment Upcoming Encounters Date Type Specialty Care Team Description 02/15/2022 Office Visit Hematology and Oncology Morris Dozier MD [facility] ONCOLOGY [place], [place] [address] (Wo rk) documented as of this encounter Goals Goal Patient Goal Associated Recent Patient-Stated? Author Type Problems Progress DH Home Medication Patient No Tamera calvillo, Compliance and Facing Brandt Morin Understanding Action Plan [facility] Note: Formatting of this note might be d ifferent from the original. Remain 95% adherent to Imatinib therapy without significant neutropenia as assessed by CBC labs in clinic every 1 to 3 months documented as of this encounter Visit Diagnoses Not on filedocumented in this encounter Care Teams Metal Mine Inspector Relationship Specialty Start Date End Date Irving Wheeler MD PCP - General 06/23/[address] [place] [address] documented as of this encounter
--- OUTSIDE RECORDS SUMMARY | 2022-02-01 00:24 | XMS_ITS | Encounter Summary ---
:1960 Author Organization [facility] [address] Care Team Providers Name Role Phone Irving Wheeler MD Primary Care Provider [phone] Encounter Details Date Type Department Care Team Description 08/03/2021 Office Visit Hematology/Oncology Nicanor Dozier MD [facility] [place] [address] [facility] [address] [place] [address] [place] [address] tumor (GIST) of duodenum [address] [place] [phone] Social History Tobacco Use Types Packs/Day [...] on file documented as of this encounter Last Filed Vital Signs Vital Sign Reading Time Taken Comments Blood Pressure 117/57 08/03/2021 3:33 PM EDT Pulse 64 08/03/2021 3:33 PM EDT Temperature 36.3 ??C (97.3 ??F) 08/03/2021 3:33 PM EDT Respiratory Rate 18 08/03/2021 3:33 PM EDT Oxygen Saturation 100% 08/03/2021 3:33 PM EDT Inhaled Oxygen Concentration - - Weight 50.4 kg (111 lb 3.2 oz) 08/03/2021 3:33 PM EDT Height 160 cm (5' 3) 08/03/2021 3:33 PM EDT Body Mass Index 19.7 08/03/2021 3:33 PM EDT documented in this encounter Progress Notes Kecia Vila, ANA - 08/03/2021 3:30 PM EDT Subjective: Patient ID: Mary Kay Gonzalez is a 61 y.o. female. Patient Active Problem List Diagnosis ??? Moderate protein-calorie malnutrition ??? 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 GIST (gastrointestinal stromal tumor), malignant ??? Anemia ??? Disorder of thyroid gland ??? Arthritis ??? Tinnitus ??? Vitamin D deficiency ??? Osteoarthrosis ??? 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 Gonzalez is a 59 yo female referred for evaluation and management of a small bowel GIST. ?? An EGD was done 06/2019 due to anemia. She was found to have an ulcer of the second portion of the duodenum and was started on a PPI and carafate. She had persistent melena and anemia and an abd US was done on 11/17/19 to assess for a duodenal or upper abdominal mass. This showed a mass that appeared to be arising from the left lobe of the liver. A CT abd/pelvis was done on 11/22/19 and showed a 6.8 x 6.9 x 5.4 cm mass felt to be arising from the uncinate process. An Upper EUS was done on 11/25/19 and showed a 6 cm mass in the region of the pancreas head that may be arising from the duodenal wall. FNB was performed and and the cytology from this is consistent with a GIST. ?? 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 Her case was discussed at GI Tumor Board on 12/07/19 and she also met with Dr. Galdamez. Because of the size and location of the tumor, the recommendation was for consideration of neoadjuvant imatinib. ?? A PET was done on 12/21/19 and showed the primary tumor and no evidence of disease elsewhere. ?? She began therapy with imatinib, 400 mg per day on 12/31/19. ?? She was hospitalized at [facility] from 01/31 to 02/04/20. She had presented to her PCP with fever and had labs drawn which showed a WBC of 1.0. The imatinib was stopped. Cultures were negative. A CT was done and showed the abdominal mass to be about the same size with interval mild increase in the central los attenuation suggesting increased necrosis. There was a new focus of air. She was treated with cefipime in the hospital and discharged on cipro and flagyl. The WBC/ANC improved and are now WNL. ?? While this type of severe leukopenia/neutropenia is uncommon with imatinib, agranulocytosis has beenreported. The source of the infection was felt to be the necrotic mass. ?? On 02/23/20 she underwent a Whipple procedure with resection of the duodenal GIST, path report above. We talked about whether to proceed with post-operative imatininb. Because she received pre-operative imatinib, the mitotic rate cannot be reliably assessed and therefore, risk category cannot be accurately assigned. The recommendation in this circumstance is generally for three years of post-operative imatinib. Obviously the prior issues with neutropenia are of concern. I think one can try to rechallenge but would start at reduced dose of 100 or 200 mg per day and follow closely, ie with weekly labs initially. ?? She recovered well from the surgery. We talked and decided to restart the imatinib at 100 mg per day. She began this on 05/07/20. She is tolerating this well. We need to recheck her CBC and recheck heriron studies. She is taking oral iron but if this remains low, we may need to supplement IV. She doubled her dose of Vit D to 4000 units per day. ?? The CBC looks good today and we will check thjis weekly and will see her again in 4 weeks with labs,including a recheck of the iron studies. If the labs continue to look good, we will consider increasing the imatinib dose to 200 mg per day. ??2:48 PM INTERVAL HPI 08/03/21 Mary Kay Gonzalez is a 60 yo female diagnosed 11/28 with gastrointestinal stromal tumor of the small bowel. (See detailed history as summarized above.) She was started on neoadjuvant Imatinib 400mg Q in 12/29. She developed neutropenia, was hospitalized and subsequently had a Whipple procedure 02/23/20. She was restarted on Imatinib 100mg QD on 05/07/20 with the goal of increasing the dose to 400mg QD. She had been taking 400mg po QD since 12/01/20 up until the 04/27/21 clinic visit when she was told to stop taking it due to some issues of not feeling well, and then restart it at the same dose when she felt better. Mary Kay returns to clinic today for follow up. She is currently taking Imatinib 200mg po daily. She felt poisoned when she was on the 400mg. She is feeling well today. She denies any illnesses or hospitalizations since we saw here last in May. She has some mild periorbital edema and trace LE edema. No nausea, vomiting, constipation or diarrhea. Mouth sores are resolving. She is complaining of lost of taste and smell since May- COVID test was negative. She has an ENT appointment- she has had trouble with her sinuses for a long time. No fevers, chills or signs of infection. Energy level is good today. No complaints of pain. No other focal complaints today. No Known Allergies Current Medications ??? imatinib (Gleevec) 100 mg tablet ??? multivitamin (THERAGRAN) Tablet ??? ferrous sulfate (IRON ORAL) ??? cholecalciferol, Vitamin D3, 50 mcg (2,000 unit) Capsule ??? omeprazole (PriLOSEC) 40 mg Capsule, Delayed Release(E.C.) No family history on file. Social History Tobacco Use ??? Smoking status: Former Smoker Packs/day: 0.50 Types: Cigarettes Quit date: 1994 Years since quittin.2 ??? Smokeless tobacco: Never Used ??? Tobacco comment: never vape Vaping Use ??? Vaping Use: Never used Substance Use Topics ??? Alcohol use: Not Currently Comment: none since 05/12/2019 ??? Drug use: Never Review of Systems Constitutional: Negative for fatigue and fever. Improved energy HENT: Negative for mouth sores. Respiratory: Negative for cough and shortness of breath. Gastrointestinal: Negative for abdominal distention, abdominal pain, blood in stool, constipation, diarrhea, nausea and vomiting. Genitourinary: Negative. Musculoskeletal: Negative for arthralgias and myalgias. Skin: Negative. Negative for rash. Neurological: Negative. Hematological: Negative. Psychiatric/Behavioral: Negative. The patient is not nervous/anxious. Objective: Physical Exam Vitals reviewed. Constitutional: Appearance: Normal appearance. She is not ill-appearing. Comments: Pleasant, well appearing female in NAD. HENT: Mouth/Throat: Mouth: Mucous membranes are moist. Pharynx: Oropharynx is clear. Eyes: Comments: Periorbital edema mild Cardiovascular: Rate and Rhythm: Normal rate and regular rhythm. Heart sounds: Normal heart sounds. Pulmonary: Breath sounds: No wheezing or rales. Abdominal: General: Bowel sounds are normal. Palpations: Abdomen is soft. Tenderness: There is no abdominal tenderness. Musculoskeletal: Right lower leg: Edema present. Comments: Trace LE edema. Skin: General: Skin is warm and dry. Findings: No bruising. Neurological: Mental Status: She is alert and oriented to person, place, and time. Psychiatric: Mood and Affect: Mood normal. Thought Content: Thought content normal. BP 117/57 (Patient Position: Sitting) Pulse 64 Temp 36.3 ??C (97.3 ??F) (Temporal) Resp 18 Ht 160 cm (5' 3) Wt 50.4 kg (111 lb 3.2 oz) SpO2 100% BMI 19.70 kg/m?? LABS 08/01/21- WBC-4.52 Hgb/Hct-12.9/39.0 Plt-204 ANC-2.62 Na-142 K+-4.5 BUN/Cr14/0.5 Glucose-98 Ca-8.5 T. Bili-0.5 AST-36 ALT-45 Alk phos- 47 Albumin-3.9 Vitamin D-36.6 06/04/21 WBC 4.51; ANC 2.62; H/H 14.0/42.3; PLT 243; BUN 10; CREAT 0.5; LFTs normal; TSH 2.49; Vitamin D - 51.5. LABS 03/09/21 WBC 3.81; ANC 2.17; H/H 11.3/33.6; PLT 174; BUN 10; CREAT 0.6; BILI 0.6; LFTs normal; FERRITIN 90; IRON 103; TIBC 277 Assessment and Plan: Assessment: Mary Kay Gonzalez is a 60 yo female diagnosed 11/28 with GIST of small bowel. She was on neoadjuvant Imatinib, had a Whipple 02/28 and is now on maintenance Imatinib 400mg QD. She has been on the 400mg dose from 11/29 through 04/27/21. Mary Kay reports resolution of toxicities while on Imatinib break. She is willing to restart it at a lower dose. Mary Kay is tolerating Imatinib 200mg po daily well. No evidence of clinical toxicities. We reviewed her scan from 08/01/21 which shows stable disease. Labs assessed and are adequate to continue treatment. # Loss of taste/smell- follow up with ENT on August 29 as scheduled. Plan: Continue Imatinib at 200mg po QD. Follow up visit in 3 months with labs CBC,CMP. documented in this encounter Plan of Treatment Upcoming Encounters Date Type Specialty Care Team Description 02/15/2022 Office Visit Hematology and Oncology Morris Dozier MD [facility] DR ONCOLOGY [place], [place] [address] (Wo rk) Scheduled Orders Name Type Priority Associated Diagnoses Order S chedule CBC (with Diff) Lab Routine Gastrointestinal stromal Expected: tumor (GIST) of duodenum (Approximate), Expires: 2022 Comprehensive metabolic Lab Routine Gastrointestinal stromal Expected: panel (non-fasting) tumor (GIST) of duode num 11/03/2021, Expires: 2021 documented as of this encounter Goals Goal Patient Goal Associated Recent Patient-Stated? Author Type Problems Progress DH Home Medication Patient No Tamera calvillo, Compliance and Facing Brandt Morin Understanding Action Plan [facility] Note: Formatting of this note might be d ifferent from the original. Remain 95% adherent to Imatinib therapy without significant neutropenia as assessed by CBC labs in clinic every 1 to 3 months documented as of this encounter Visit Diagnoses Diagnosis Gastrointestinal stromal tumor (GIST) of duodenum documented in this encounter Care Teams Die Operator Relationship Specialty Start Date End Date Irving Wheeler MD PCP - General 06/23/[address] [place] [id number] documented as of this encounter
--- OUTSIDE RECORDS SUMMARY | 2022-02-01 00:24 | XMS_ITS | Encounter Summary ---
:1960 Author Organization [facility] [place] [address] Care Team Providers Name Role Phone Irving Wheeler MD Primary Care Provider [phone] Reason for Visit Reason Comments Medication Management Medication Refill Encounter Details Date Type Department Care Team Description 11/10/2020 Specialty Pharmacy Pharmacy at [facility] Antony Valle [facility] [place] [phone] Social History Tobacco Use Types Packs/Day Years [...] documented as of this encounter Progress Notes Antony Valle RPH - 11/10/2020 4:45 PM EDT Clinical Management Plan: Refill Specialty Pharmacy Consultation; Antony Valle RPH Comprehensive Medication Management (CMM) Mary Kay Lisa Ms. Mary Kay Gonzalez is a 60 y.o. (1960) female who was contacted in regard to a specialty medication refill reminder. Contact made with patient regarding IMATINIB. A review of the medication therapy was performed. The medication was refilled as scheduled, and all medication related questions and concerns were addressed. The specialty pharmacy staff will follow up with the patient 5-7 days prior to next refill. Was a change made to the Care Plan: yes - patient is tolerating the medication so dose is increased to 300mg qd If yes, should the medication be held: No Assessment and Recommendations: Title Type of Medication Management: targeted medication review Referred By: provider Recipient: beneficiary Provider: plan sponsor pharmacist Visit Type: [facility] Follow-up Method of Contact: by telephone Cognitive Ability: good Cognitive Impairment Status Verified this Year: no Allergies and Drug intolerance: No Known Allergies Medication Reconciliation Discrepancies (compared to [facility] med list) - noted that imatinib dose changed Specialty Pharmacy Refill Questionnaire Refill Questionnaire 11/10/2020 What is the name of the specialty medication you are refilling? imatinib Are you taking any new medications? No Any new medical condition? No Any new allergies? No Any missed doses since your last fill? No Any new side effects that are bothersome? No Please explain - What date will you need this fill by? 11/17/2020 Adherence: Medication Adherence Patient reported X missed doses in the last month: 0 Any gaps in refill history greater than 2 weeks in the last 3 months: no Demonstrates understanding of importance of adherence: yes Informant: patient Reliability of informant: reliable Provider-estimated medication adherence level: 90-100% Adherence tools used: directed education Support network for adherence: family member, healthcare provider Confirmed plan for next specialty medication refill: delivery by pharmacy Pt understands no changes to current drug regimen were made at the appointment and that [facility] is providing recommendations (summary located at top of note) for provider review and follow up. Antony Valle RPH 11/10/20 4:48 PM documented in this encounter Plan of Treatment Upcoming Encounters Date Type Specialty Care Team Description 02/15/2022 Office Visit Hematology and Oncology Morris Dozier MD [facility] ON[facility]OGY [place] [address] (Wo rk) documented as of this encounter Goals Goal Patient Goal Associated Recent Patient-Stated? Author Type Problems Progress DH Home Medication Patient No Tamera calvillo, Compliance and Facing Brandt Morin Understanding Action Plan [facility] Note: Formatting of this note might be d ifferent from the original. Remain 95% adherent to Imatinib therapy without significant neutropenia as assessed by CBC labs in clinic every 1 to 3 months documented as of this encounter Visit Diagnoses Not on filedocumented in this encounter Care Teams Plastic Tool Maker Relationship Specialty Start Date End Date Irving Wheeler MD PCP - General 06/23/[address] [place] [id number] documented as of this encounter
--- OUTSIDE RECORDS SUMMARY | 2022-02-01 00:24 | XMS_ITS | Encounter Summary ---
:1960 Author Organization [facility] [place] [address] Care Team Providers Name Role Phone Irving Wheeler MD Primary Care Provider [phone] Reason for Visit Reason Onset Date Comments Medication Refill 06/11/2021 lowered dose gleevec Encounter Details Date Type Department Care Team Description 06/11/2021 Telephone Hematology/Oncology at Claudia Khalil RN Medication Refill [facility] (lowered dose gleevec) [address] [place] [phone] Social History Tobacco Use Types Packs/Day Years [...] this encounter Miscellaneous Notes Telephone Encounter - Claudia Khalil RN - 06/11/2021 4:54 PM EST Oral Chemotherapy Check Note 06/11/2021 Mary Kay Lisa, 1960 Prescriptions for oral chemotherapy were reviewed as follows: Oral Chemotherapy Order gleevec: Order details: ?? Dose: 200 mg (100 mg tab) ?? Route: oral ?? Quantity to be dispensed #: 60 ?? Number of refills: 5 ?? Instructions: Take two tablets by mouth (200 mg ) daily take with food and large glass of water ?? Cycle number and length: ongoing ?? Start date: Already on Plan of care compared to information in the medical record, including note from provider on 06/11/21 (date). The prescription was found To be complete and accurate. It was e-prescribed to [facility]. documented in this encounter Plan of Treatment Upcoming Encounters Date Type Specialty Care Team Description 02/15/2022 Office Visit Hematology and Oncology Morris Dozier MD [facility] ONCOLOGY [place], [place] [address] (Wo rk) documented as of this encounter Goals Goal Patient Goal Associated Recent Patient-Stated? Author Type Problems Progress DH Home Medication Patient No Tamera ky, Compliance and Facing Brandt Morin, Understanding Action Plan [facility] Note: Formatting of this note might be d ifferent from the original. Remain 95% adherent to Imatinib therapy without significant neutropenia as assessed by CBC labs in clinic every 1 to 3 months documented as of this encounter Visit Diagnoses Not on filedocumented in this encounter Care Teams Sprinkling System Installer Relationship Specialty Start Date End Date Irving Wheeler MD PCP - General 06/23/19 [address] [place] [address] documented as of this encounter
--- OUTSIDE RECORDS SUMMARY | 2022-02-01 00:24 | XMS_ITS | Encounter Summary ---
:1960 [place] [address] Care Team Providers Name Role Phone Irving Wheeler MD Primary Care Provider [phone] Reason for Visit Reason Comments Medication Management Patient Education Encounter Details Date Type Department Care Team Description 01/31/2021 Specialty Pharmacy Pharmacy at [facility] Marielena Anaya RPH Managem ent; [place] [id number] Social History Tobacco Use Types Packs/Day Years [...] encounter Progress Notes Marielena Galdamez RPH - 01/31/2021 11:07 AM EDT Specialty Pharmacy Consultation; Marielena Galdamez RPH Comprehensive Medication Management (CMM) Mary Kay Manciay Diagnosis: GIST Therapy Start Date: 12/31/19 Contact in person or via telephone:phone Ms. Mary Kay Gonzalez is a 60 y.o. (1960) female who was called today. I spoke with the patient regarding their specialty medication Imatinib and a review of the drug therapy was performed. The medication was filled as scheduled, and all related questions and concerns were addressed. The specialty pharmacy staff will follow up with the patient 5-7 days prior to next refill. Is the patient willing to proceed with the Clinical Assessment? Yes Summary and Recommendations: The patient was feeling well today and not experiencing any side effects. Medication list reviewed with no major interactions identified. The patient has tolerated her increased dose and we have askedthe prescriber to send the 400mg tablets due to high iron content. The patient is aware of the importance of lab follow up and infection prevention precautions such as proper hand washing, appropriate vaccination, and wearing a mask during an illness. The importance of adherence to treatment and strategies to improve compliance including use of pill boxes, calendar reminders, or routine alarms was discussed. The patient was instructed to notify the clinic of any upcoming procedures or new medications and OTC products. Resources are available to the patient from the cancer center from dieticians to school social worker. Administration, allergies, dosage, safe storage away from pets or children, handlingand disposal was reviewed. The pharmacy's contact information and operating hours on-call services were given to the patient verbally as well as in writing. The medication will be mailed out for a $0 copay. Clinic follow-up needed: no Allergies and Drug intolerance: No Known Allergies Problem List: Patient Active Problem List Diagnosis Code ??? 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 Anemia D64.9 ??? Disorder of thyroid gland E07.9 ??? Arthritis M19.90 ??? Tinnitus H93.19 ??? Vitamin D deficiency E55.9 ??? Osteoarthrosis M19.90 ??? GIST (gastrointestinal stromal tumor), malignant C49.A0 ??? Gastroparesis K31.84 ??? Moderate protein-calorie malnutrition E44.0 Special Dietary or Hydration Requirements: no There is no height or weight on file to calculate BMI. Medication reconciliation discrepancies (compared to [facility] med list): no Medication Adherence Patient reported X missed doses in the last month: 0 Any gaps in refill history greater than 2 weeks in the last 3 months: no Demonstrates understanding of importance of adherence: yes Informant: patient Reliability of informant: reliable Provider-estimated medication adherence level: 90-100% Reasons for non-adherence: no problems identified Adherence tools used: directed education Support network for adherence: family member, healthcare provider Confirmed plan for next specialty medication refill: delivery by pharmacy Refills needed for supportive medications: not needed Medication List: Current Outpatient Medications Medication Sig Note Dispense Refill ??? imatinib (Gleevec) 100 mg tablet Take (4) 100mg tablets once daily for a total of 400mg daily. Take with food and a large glass of water to decrease stomach irritation. Call clinic before starting medication. Indications: adjuvant therapy following surgical removal of Kit (CD117) positive gastroint estinal stromal tumor 120 tablet 3 ??? multivitamin (THERAGRAN) Tablet Take 1 tablet by mouth daily. 08/25/2020: Zinc, vitamin D ??? omeprazole (PriLOSEC) 40 mg Capsule, Delayed Release(E.C.) Take 1 capsule by mouth daily. 90 capsule 3 ??? ferrous sulfate (IRON ORAL) Take 50 mg by mouth daily. Actually chelated amino acid Iron ??? cholecalciferol, Vitamin D3, 50 mcg (2,000 unit) Capsule Take 4,000 Units by mouth daily. No current facility-administered medications for this visit. Most Recent Vitals: Ht Readings from Last 1 Encounters: 12/29/20 160 cm (5' 2.99) Wt Readings from Last 3 Encounters: 01/26/21 51.6 kg (113 lb 12.8 oz) 12/29/20 52.7 kg (116 lb 3.2 oz) 12/01/20 50.7 kg (111 lb 12.8 oz) Temp Readings from Last 3 Encounters: 01/26/21 36.6 ??C (97.8 ??F) (Temporal) 12/29/20 36.8 ??C (98.2 ??F) (Temporal) 12/01/20 36.1 ??C (97 ??F) (Temporal) BP Readings from Last 3 Encounters: 01/26/21 105/50 12/29/20 104/52 12/01/20 111/48 Pulse Readings from Last 3 Encounters: 01/26/21 77 12/29/20 85 12/01/20 69 Pertinent Lab values: Lab Results Component Value Date NA 145 09/29/2020 K 3.7 09/29/2020 CL 105 04/18/2020 CO2 27 04/18/2020 BUN 11 12/01/2020 CREATININE 0.6 12/14/2020 GLUCOSE 74 04/18/2020 GLUCFASTING 110 (H) 03/29/2020 CALCIUM 9.0 09/29/2020 Lab Results Component Value Date ALT 61 09/29/2020 AST 30 09/29/2020 ALKPHOS 70 09/29/2020 BILITOT 0.4 09/29/2020 BILIDIR 0.1 03/24/2020 ALBUMIN 4.3 04/18/2020 PROT 6.3 04/18/2020 Lab Results Component Value Date WBC 4.94 12/14/2020 HGB 12.2 12/14/2020 HCT 35.4 12/14/2020 MCV 93.5 04/18/2020 PLATELET 201 12/14/2020 No results found for: HA1C Immunization History Administered Date(s) Administered ??? Influenza Vaccine PF, Quadrivalent 03/01/2020 Assessment and Recommendations: Title Type of Medication Management: chronic disease management Recipient: beneficiary Provider: plan sponsor pharmacist Method of Contact: by telephone Cognitive Ability: good Cognitive Impairment Status Verified this Year: no Patient Counseling Counseled the patient on the following: doses and administration discussed, safe handling, storage, and disposal discussed, possible adverse effects and management discussed, possible drug and prescription drug interactions discussed, possible drug and OTC drug and food interactions discussed, lab monitoring and follow-up discussed, cost of medications and cost implications discussed, adherence and missed doses discussed Drug Medication Management Summary Topics discussed: doses and administration discussed, safe handling, storage, and disposal discussed, possible adverse effects and management discussed, possible drug and prescription drug interactions discussed, possible drug and OTC drug and food interactions discussed, lab monitoring and follow-up discussed, cost of medications and cost implications discussed, adherence and missed doses discussed Number of adverse drug events identified: 0 Time spent: 16-30 min Treatment Outcomes 01/31/2021 1110 Disease progression: Stable Patient Overall Status: Stable Reviewed in detail with patient: Dose appropriateness based on recommended standard dosing Current medication list including OTC medications Medication and disease problems Allergies Comorbid conditions/ Problem List Past adverse events if any Special needs of the patient including physical and cognitive limitations Goals of therapy and management strategies Warnings, precautions, and contraindications Side effects Drug-drug and drug-food interactions Administration instructions including dose, frequency and method Handling, storage, and disposal Verifying expiration dates on products before use Rotating medication inventory to use oldest product first Relevant lab data Treatments impact on disease Dose appropriateness based on recommended standard dosing schedule, including any variations from FDA approved dosing Patient verbalizes understanding and is able to read-back instructions on self-administration/injection, proper storage, drug stability, importance of adherence and management strategies, side effect avoidance and mitigation strategies, and interruptions in therapy: Yes Relevant monitoring results reviewed for bone marrow suppression, opportunistic infection, tumor lysis syndrome, metabolic disturbance and end organ dysfunction yes - . Physical and Cognitive Assessment: Functional limitations identified: no Cognitive limitations identified: no Concern regarding orientation/memory: no Concern with reasoning/judgement: no Is patient a fall risk: no Other needed information: no Social Assessment: Does the patient have a primary career development associate? no Does the patient have an emergency contact on file: Yes Does patient need referral to school social worker: No Does patient need referral to advocacy group: No Home Health Assessment: Is the patient in a safe home environment? Yes Is the patient able to store their medication as directed? Yes Does the patient have a support network at home? Yes Reviewed potential home safety hazards with patient: Yes Economic Assessment: Patient is agreeable to medication copay: yes Copay Amount: $0 Day Supply: 30 Date Needed: 02/08/21 Copay assistance required: no Therapy Assessment: Current Medication Dosing/Route/Frequency: Imatinib 400mg PO QD Appropriate Therapy: Yes Effective: yes - scans remain stable on office visits Patient-Reported Side Effects: no Patient assessed for pertinent side effects such as arthralgia, neuropathy, vision changes, cough, rash, hand/foot syndrome, hot flashes, nausea, and diarrhea or constipation. Adjunct medication needed? no Is the patient experiencing pain? no Patient Goals: Hematology/Oncology related goals may include remission, palliative or hospice care, a bridge to future surgery, transplant, and radiation or infusion therapy. Goals ??? Home Medication Compliance and Understanding Remain 95% adherent to Imatinib therapy without significant neutropenia as assessed by CBC labs in clinic every 1 to 3 months Is the patient on track to achieve goals of therapy? Yes Care Plan and Interventions: Care Plan Reviewed and Approved by both Pharmacist and Patient: Yes Did Care Plan Change? Yes - dose titrated up as planned and pt is tolerating it well Interventions (if applicable): No Patient experienced change in condition that affects treatment: no Additional care/services needed: no Educational information or adherence tools provided: Yes Additional equipment/supplies required: no Pharmacist follow-up needed: Yes Patient Satisfaction with Care/Services Provided: Yes Informed patient of specialty pharmacy services: Yes -Patient received welcome and rights packet: Yes Date Received: 01/31/20 mailed -Patient is aware a licensed pharmacist is available 24 hours a day, 7 days a week to discuss medication-related questions or concerns: Yes -Patient verbalizes understanding of education on the common side effect profile of the medication: Yes -The patient is able to call 911 or seek urgent care if signs/symptoms of allergy or harmful adversereactions occur: Yes Patient Satisfaction with Therapy: yes - pt is tolerating therapy well with few side effects Patient understands any changes to current drug regimen were made at the appointment and that [facility] is[facility] (summary located at top of note) for provider review and follow up. Marielena Galdamez RPH 01/31/21 11:11 AM documented in this encounter Plan of Treatment Upcoming Encounters Date Type Specialty Care Team Description 02/15/2022 Office Visit Hematology and Oncology Morris Dozier MD [facility] [place] [address] (Wo rk) documented as of this encounter Goals Goal Patient Goal Associated Recent Patient-Stated? Author Type Problems Progress Home Medication Patient No Tamera calvillo, Compliance and Facing Brandt Morin Understanding Action Plan [facility] Note: Formatting of this note might be d ifferent from the original. Remain 95% adherent to Imatinib therapy without significant neutropenia as assessed by CBC labs in clinic every 1 to 3 months documented as of this encounter Visit Diagnoses Not on filedocumented in this encounter Care Teams [place] Auditor Relationship Specialty Start Date End Date Irving Wheeler MD PCP - General 06/23/19 [address] [place] [address] documented as of this encounter
--- OUTSIDE RECORDS SUMMARY | 2022-02-01 00:24 | XMS_ITS | Encounter Summary ---
:1960 Author Organization [place] [address] Care Team Providers Name Role Phone Irving Wheeler MD Primary Care Provider [phone] Encounter Details Date Type Department Care Team Description 11/03/2020 Office Visit Hematology/Oncology Nicanor Dozier MD [facility] [place] [address] Gastrointestinal stromal at [facility] Tere Beckham APRN [address] [place] [address] [place] [address] tumor (GIST) of duodenum [address] [place] [phone] Social History Tobacco Use Types Packs/Day [...] Sign Reading Time Taken Comments Blood Pressure 99/57 11/03/2020 10:44 AM EDT Pulse 67 11/03/2020 10:44 AM EDT Temperature 36.7 ??C (98.1 ??F) 11/03/2020 10:44 AM EDT Respiratory Rate 18 11/03/2020 10:44 AM EDT Oxygen Saturation 100% 11/03/2020 10:44 AM EDT Inhaled Oxygen Concentration - - Weight 50.5 kg (111 lb 6.4 oz) 11/03/2020 10:44 AM EDT Height 162.5 cm (5' 3.98) 11/03/2020 10:44 AM EDT Body Mass Index 19.14 11/03/2020 10:44 AM EDT documented in this encounter Progress Notes Morris Dozier MD - 11/03/2020 10:30 AM EDT Subjective: Patient ID: Jen Farmer is 60 y.o. Problem List: 1. GIST, small bowel A. EGD 06/2019 due to anemia showed ulcer involving the second portion of the duodenum. Started on PPI and carafate but had persistent bleeding. Abd US 11/17/19 - IMPRESSION: Apparent large left lobe liver mass. CT recommended. CT abd/pelvis 11/22/19 - IMPRESSION: A large mass, likely arising from the uncinate process of the pancreas, as above, with a central area of necrosis/cystic degeneration. 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 No metastatic disease is detected inthe abdomen and pelvis. Recommend GI referral for possible endoscopic ultrasound-guided tissue sampling. B. 11/25/19 - Upper EUS - Impression: 6 cm mass in the region of the pancreas head that may actually be arising from the duodenal wall and may represent a GIST or sarcoma, less likely a neuroendocrine tumor or adenocarcinoma-s/p FNB. ?- ERCP deferred as the bile duct is extrinsically compressed but notclearly obstructed yet, and LFTs are normal. Cytology - Pancreas, head (EUS-guided FNA): Consistent with gastrointestinal stromal tumor (GIST), epithelioid and spindle cell type (see note). Note: ??The lesional cells are immunoreactive for Ckit(CD117) and DOG1; they are essentially negative for SMA, desmin, S100, CKAE1/3, synaptophysin and chromogranin. The immunostain findings support the diagnosis. Final risk assessment will be made following examination of resection specimen. 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 Discussed at GI Tumor Board on 12/07/19. The recommendation was for molecular studies. Depending on findings, consider pre-operative imatinib. Recommend baseline PET scan and short term f/u PET scan toestablish activity. D. PET scan 12/29/19 - IMPRESSION 1. Unchanged size of a large heterogeneously FDG avid, centrally necrotic mass extending inferiorlyfrom the korin hepatis, consistent with biopsy-proven GI stromal tumor. 2. No alexis metastasis. 3. No distant metastasis. E. Began therapy with imatinib on 01/01/20, 400 mg/day Stopped 02/01/20 due to neutropenia F. Whipple procedure 02/23/20 Path Tumor ?Tumor Site: ??Small intestine ? Tumor Location: ??Duodenum ?Histologic Type: ??Gastrointestinal stromal tumor - Predominantly spindled with focal epithelioid component ?Histologic Grade: ??G1: Low grade; mitotic rate <= 5 / 5 mm2 ?Tumor Size: ??7.3 x 5.4 x 5.2 Centimeters (cm) ?Tumor Focality: ??Unifocal ?Mitotic Rate: ??2 mitoses per 5 mm2 ?Necrosis: ??Present ? Extent: ??5% ?Risk Assessment: ??Cannot be determined ?Treatment Effect: ??Present ? Percentage of Viable Tumor: ??95% Margins ?Margins: ??Uninvolved by GIST ? Distance of Tumor from Closest Margin: ??0.1 mm ? Closest Margin: ??Inferior soft tissue margin Lymph Nodes ?Number of Lymph Nodes Involved: ??0 ?Number of Lymph Nodes Examined: ??23 Pathologic Stage Classification (pTNM, AJCC 8th Edition) ?TNM Descriptors: ??y (post-treatment) ?Primary Tumor (pT): ??pT3 ?Regional Lymph Nodes (pN): ??pN0 Additional Findings ?Additional Findings: ??Suppurative inflammation with numerous bacterial organisms is also identified. The tumor abuts but does not invade the pancreas. G. Resumed imatinib at 100 mg per day on 05/07/20. Increased dose to 200 mg per day on 09/08/[address] c/a/p 07/25/20 - IMPRESSION: Postoperative changes as above. No evidence of local recurrence or metastatic disease in the chest,abdomen and pelvis. HPI Jen Farmer is seen in f/u of small bowel GIST. On 02/23/20 she underwent a Whipple procedure with resection of the duodenal GIST, path report above. Restarted imatinib at 100 mg per day on 05/07/20, increased to 200 mg per day on 09/08/20 She is by herself in clinic today. She is feeling very well. She is eating well and her weight is stable Her energy level is good. She was out picking strawberries this morning. She has tolerated the imatinib well at 200 mg per day. No fevers. She stopped the creon in late August and is doing fine off of that.Her energy level is good and she is physically active. No SOB or cough. No nausea or vomitingand no abd pain or discomfort. Soc Hx:, lives in [place], [place] Tob - Quit in mid Etoh - none recently. 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 Fam Hx: Father - at age 74, bleeding following colonoscopy. Had heart disease Mother - Alive, 81 yo, in good health Sibs - Brother of pancreatic cancer at age 47. Children - 3 sons, in good health Pat GF - pancreatic cancer Pat uncle - acute leukemia Mat GF - Liver cancer Review of Systems Constitutional: Negative for activity change, appetite change, fatigue, fever and unexpected weight change. HENT: Negative. Respiratory: Negative. Cardiovascular: Negative. Gastrointestinal: Negative. Genitourinary: Negative. Musculoskeletal: Negative. Skin: Negative. Neurological: Negative. Hematological: Negative. Psychiatric/Behavioral: Negative. Objective: Physical Exam Vitals reviewed. Constitutional: General: She is not in acute distress. HENT: Head: Normocephalic and atraumatic. Eyes: General: No scleral icterus. Cardiovascular: Rate and Rhythm: Normal rate and regular rhythm. Pulmonary: Effort: Pulmonary effort is normal. No respiratory distress. Breath sounds: No wheezing or rales. Abdominal: General: Abdomen is flat. There is no distension. Palpations: There is no mass. Tenderness: There is no abdominal tenderness. There is no guarding. Skin: General: Skin is warm and dry. Findings: No rash. Neurological: General: No focal deficit present. Mental Status: She is alert. Coordination: Coordination normal. Psychiatric: Mood and Affect: Mood normal. Thought Content: Thought content normal. Labs: Results for JEN FARMER ( ) as of 07/07/2020 16:15 ?? Ref. Range 06/23/2020 00:00 06/30/2020 00:00 07/07/2020 00:00 07/14/20 07/28/20 08/11/20 08/25/20 09/07/20 WBC Unknown 3.0 (A) 3.5 (A) 3.6 3.4 3.6 3.4 6.0 3.2 Hemoglobin Unknown 12.8 12.9 13.2 12.3 12.9 12.8 12.8 12.5 Hematocrit Unknown 40.0 39.0 41.0 38 40 39 40 38 Platelets Unknown 221 211 235 196 210 232 245 Neutr Abs (ANC) Unknown 1.66 1.57 2.01 1830 2200 1970 3800 2120 ? Results for JEN FARMER ( ) as of 10/13/2020 16:09 ?? Ref. Range 09/29/2020 00:00 10/06/2020 00:00 10/13/2020 00:00 10/20/20 11/03/20 WBC Unknown 3.5 3.6 4.0 4.1 4.0 RBC Unknown ? 4.01 Hemoglobin Unknown 12.5 13.1 12.8 12.2 12.6 Hematocrit Unknown 38.0 40.0 39 37 38 Platelets Unknown 209 231 248 229 245 Neutr Abs (ANC) Unknown 1.95 2.2 2.33 2.49 2.16 ?? (11/03/20) - CBC above. BUN/Cr - 12/0.57. Lytes and LFTs unremarkable (09/07/20) - BUN/Cr - 16/0.65. Lytes and LFTs unremarkable Iron - 56, Tibc - 323, sat - 17.5%, ferritin - 33; B12 - 812. Vit D - 24.4. (08/25/20): CBC above. BUN/Cr - 13/0.62. Na - 147. Lytes and LFTs o/w unremarkable (07/28/20): Iron - 84, TIBC - 333, Ferritin - 28. BUN/Cr - 11/0.54. Lytes and LFTs unremarkable. (06/30/20): WBC/ANC - 3.09/1589, Hgb/Hct - 12.9/39, Plts - 211,000. (05/19/20): WBC/ANC - 5.07/3219, Hgb/Hct - 12.1/38.1, Plts - 237,000. BUN/Cr - 18/0.6. Ca - 8.1 with alb 3.8. Lytes and LFTs o/w unremarkable. (05/01/20): WBC/ANC - 4.05/2349, Hgb/Hct - 11.4/36, Plts - 289,000. CMP from 04/24/20: BUN/Cr - 16/0.49. Lytes and LFTs unremarkable From 05/01/20: Retic - 0.8, Iron - 38, TIBC - 385, Sat - 9.9%, Ferritin - 11. B12 - 644, Folate - 31.3 Vit D - 17.2 Assessment and Plan: Jen Farmer is 59 yo, seen for evaluation and ongoing management of a small bowel GIST. EGD done 06/2019 due to anemia - ulcer of the second portion of the duodenum, started on a PPI and carafate. She [...] FNB was performed and and the cytology fromthis is consistent with a GIST. 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 Galdamez. Because of the size and location of the tumor, the recommendation was for consideration of neoadjuvant imatinib. A PET was done on 12/21/19 and showed the primary tumor and no evidence of disease elsewhere. She began therapy with imatinib, 400 mg per day on 12/31/19. She was hospitalized at [facility] from 01/31 to 02/04/20. She had presented [...] The WBC/ANC improved and are now WNL. While this type of severe leukopenia/neutropenia is uncommon with imatinib, agranulocytosis has beenreported. The source of the infection was felt to be the necrotic mass. On 02/23/20 she underwent a Whipple procedure [...] follow closely, ie with weekly labs initially. She recovered well from the surgery. We talked and decided to restart the imatinib at 100 mg per day. She began this on 05/07/20. She has tolerated this well. The dose was increased to 200 mg per day on 09/08/20. A restaging CT scan was done on 07/25/20. There was no evidence of disease. She has tolerated the current dose of imatinib well. The WBC/ANC are stable. We will have her increase the dose to 300 mg per day and have her labs rechecked in two weeks. We will see her in 4 weeks. We will plan the next CT in January. Note: She has had both covid vaccine injections. documented in this encounter Plan of Treatment Upcoming Encounters Date Type Specialty Care Team Description 02/15/2022 Office Visit Hematology and Oncology Morris Dozier MD [facility] DR ONCOLOGY [place] [address] (Wo rk) documented as of this encounter Goals Goal Patient Goal Associated Recent Patient-Stated? Author Type Problems Progress DH Home Medication Patient No [place], Compliance and Facing Brandt Morin Understanding Action Plan [facility] Note: Formatting of this note might be d ifferent from the original. Remain 95% adherent to Imatinib therapy without significant neutropenia as assessed by CBC labs in clinic every 1 to 3 months documented as of this encounter Visit Diagnoses Diagnosis Gastrointestinal stromal tumor (GIST) of duodenum documented in this encounter Care Teams Summer Clerk Relationship Specialty Start Date End Date Irving Wheeler MD PCP - General 06/23/19 [address] [place] [address] documented as of this encounter
--- OUTSIDE RECORDS SUMMARY | 2022-02-01 00:24 | XMS_ITS | Encounter Summary ---
:1960 Author Organization [facility] [place] [address] Care Team Providers Name Role Phone Irving Wheeler MD Primary Care Provider [phone] Encounter Details Date Type Department Care Team Description 09/28/2020 External Results [place] [address] Social History Tobacco Use Types Packs/Day Years [...] on file documented as of this encounter Plan of Treatment Upcoming Encounters Date Type Specialty Care Team Description 02/15/2022 Office Visit Hematology and Oncology Morris Dozier MD [facility] [address] [place], [place] [address] (Wo rk) documented as of this encounter Goals Goal Patient Goal Associated Recent Patient-Stated? Author Type Problems Progress Home Medication Patient No Rozols ky, Compliance and Facing Jean Paul, Understanding Action Plan [facility] Note: Formatting of this note might be d ifferent from the original. Remain 95% adherent to Imatinib therapy without significant neutropenia as assessed by CBC labs in clinic every 1 to 3 months documented as of this encounter Procedures Procedure Name Priority Date/Time Associated Diagnosis Comme nts LAB SCAN Routine 09/08/2020 Results for thi s procedure are in the resu lts section. documented in this encounter Results Scan Doc: Lab (09/08/2020) Narrative This result has an attachment that is no t available. Historical Provider MEDIA MGR SCAN EXT ORDR/RSLT documented in this encounter Visit Diagnoses Not on filedocumented in this encounter Care Teams Kitchen Runner Relationship Specialty Start Date End Date Irving Wheeler MD PCP - General 06/23/[address] [place] [address] documented as of this encounter
--- OUTSIDE RECORDS SUMMARY | 2022-02-01 00:24 | XMS_ITS | Encounter Summary ---
:1960 Author Organization [facility] [place] [address] Care Team Providers Name Role Phone Irving Wheeler MD Primary Care Provider [phone] Reason for Visit Reason Onset Date Comments Labs Only 12/01/2020 Lab tracking Encounter Details Date Type Department Care Team Description 12/01/2020 Telephone Hematology Oncology at Jailene Lomax, Labs Only (Lab [facility] RN tracking) [address] [place] [phone] Social History Tobacco Use Types Packs/Day [...] this encounter Miscellaneous Notes Telephone Encounter - Jailene Lomax, RN - 12/01/2020 2:07 PM EDT LAB TRACKING Jen Farmer [id number] 1960 ?? 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 LABS ORDERED: cbc diff q2wks, CBC & CMP before MD visit. ?? MEDICATIONS: Imatinib 300mg daily as of 11/03/20 Assessment/Plan: Seen in clinic by Bulmaro Beckham APRN. Increased Imatanib 400mg daily. She will start going to [facility] for labs as she is going to move to [place]. Lab again in 2 weeks. MD/SPECIAL EDUCATION INSTRUCTOR visit in one month. Results for JEN FARMER ( ) as of 12/01/2020 14:09 10/20/2020 00:00 11/03/2020 00:00 11/17/2020 00:00 12/01/2020 00:00 WBC 4.1 4 4.1 4.75 Hemoglobin 12.2 12.6 12.6 12.8 Hematocrit 37.0 38.0 38.0 38.0 Platelets 229 246 230 205 Neutr Abs (ANC) 2.49 2.16 2.29 2.97 BUN 12 11 Creatinine 0.41 0.6 documented in this encounter Plan of Treatment Upcoming Encounters Date Type Specialty Care Team Description 02/15/2022 Office Visit Hematology and Oncology Morris Dozier MD [facility] DR ONCOLOGY [place], [place] [address] (Wo rk) documented as of this encounter Goals Goal Patient Goal Associated Recent Patient-Stated? Author Type Problems Progress DH Home Medication Patient No Tamera calvillo, Compliance and Facing Brandt Morin Understanding Action Plan [facility] Note: Formatting of this note might be d ifferent from the original. Remain 95% adherent to Imatinib therapy without significant neutropenia as assessed by CBC labs in clinic every 1 to 3 months documented as of this encounter Procedures Procedure Name Priority Date/Time Associated Diagnosis Comme nts CBC (WITH DIFF) Routine 12/01/2020 Results for this procedure are i n the results section . COMPREHENSIVE METABOLIC Routine 12/01/2020 Resu lts for this PANEL (NON-FASTING) procedur e are in the results section . documented in this encounter Results Comprehensive metabolic panel (non-fasting) (12/01/2020) athologist Signature BUN 11 Creatinine 0.6 Specimen (Source) Anatomical Location Collection Method / Collectio n Time Received Time / Laterality Volume Blood 12/01/2020 Authorizing Provider Result Gerry Beckham APRN CHEMISTRY ORDERABLES CBC (with Diff) (12/01/2020) athologist Signature WBC 4.75 Hemoglobin 12.8 Hematocrit 38.0 Platelets 205 Neutr Abs (ANC) 2.97 Specimen (Source) Anatomical Location Collection Method / Collectio n Time Received Time / Laterality Volume Blood 12/01/2020 Authorizing Provider Result Gerry Beckham APRN HEMATOLOGY ORDERABLES documented in this encounter Visit Diagnoses Not on filedocumented in this encounter Care Teams Feeder Switchboard Operator Relationship Specialty Start Date End Date Irving Wheeler MD PCP - General 06/23/[address] [place] [phone] documented as of this encounter
--- OUTSIDE RECORDS SUMMARY | 2022-02-01 00:24 | XMS_ITS | Encounter Summary ---
:1960 Author Organization [facility] [place] [address] Care Team Providers Name Role Phone Irving Wheeler MD Primary Care Provider [phone] Encounter Details Date Type Department Care Team Description 09/14/2020 Telephone Hematology and Oncology [place] [address] [phone] Social History Tobacco Use Types Packs/Day [...] this encounter Miscellaneous Notes Telephone Encounter - Rosario Frausto RD - 09/14/2020 8:52 AM EDT Called Mary Kay to relay results of low Vit D. (24). Recommend 50,000 IU Vit D/week for 8 weeks/confirmed with Dr Phyllis Dozier. Mary Kay's PCP Dr Wheeler also called Mary Kay about the results and left message with her. She will contact him and relay plan to proceed with high dose Vit D for next 8 weeks and arrange for re-check of serum Vit D in 3-4 months which she feels she can arrange through her PCP. She will also inquire about results of Vit A and E/these results did not appear in the scan documents we received from Jane. I have also asked if Trinity Crespo might be able to contact Jane for the results and scan them into eDH. documented in this encounter Plan of Treatment Upcoming Encounters Date Type Specialty Care Team Description 02/15/2022 Office Visit Hematology and Oncology Morris Dozier MD [facility] DR ONCOLOGY [place], [place] [address] (Wo rk) documented as of this encounter Goals Goal Patient Goal Associated Recent Patient-Stated? Author Type Problems Progress DH Home Medication Patient No Tamera calvillo, Compliance and Facing Brandt Morin, Understanding Action Plan [facility] Note: Formatting of this note might be d ifferent from the original. Remain 95% adherent to Imatinib therapy without significant neutropenia as assessed by CBC labs in clinic every 1 to 3 months documented as of this encounter Visit Diagnoses Not on filedocumented in this encounter Care Teams Paper Baling Machine Operator Relationship Specialty Start Date End Date Irving Wheeler MD PCP - General 06/23/[address] [place] [phone] documented as of this encounter
--- OUTSIDE RECORDS SUMMARY | 2022-02-01 00:24 | XMS_ITS | Encounter Summary ---
:1960 Author Organization [place] [address] Care Team Providers Name Role Phone Irving Wheeler MD Primary Care Provider [phone] Reason for Visit Reason Comments Follow-up Encounter Details Date Type Department Care Team Description 08/07/2021 Office Visit General Surgery at Emely Galdamez [facility] [place] Gur[facility] [address] [place] [facility] [facility] [id number] [place] [address] [phone] (Wo rk) Social History Tobacco Use Types Packs/Day Years [...] Mass Index 19.99 08/07/2021 1:49 PM EDT documented in this encounter Progress Notes Emely Galdamez MD - 08/07/2021 2:00 PM EDT Surgical Oncology Office Note Date: 08/07/2021 Primary physician: Irving Wheeler MD Referring physician: Pedrito Arrieta MD Reason for evaluation: Open whipple on 02/23/2020 for locally advanced duodenal GIST s/p Imatinib c/b neutrapenic fevers Interval History: Mrs. Gonzalez is now a 60 year old woman from [place], [place]. She presented with several months history of nausea and then vomiting to the [facility] ED with a work-up described below. 11/22/2019 CT abdomen and pelvis ([facility]). 11/25/[address] Arrieta with endosonographic findings reviewed below: An irregular mass was identified in the region of the pancreatic head. The mass was focally adherent to the duodenal wall and may arise from it. The mass was heterogenous. The mass measured 61 mm by 54 mm in maximal cross-sectional diameter. The outer margins were irregular. An intact interface was seen between the mass and the adjacent vascular structures suggesting a lack of invasion. Fine needle biopsy was performed. Six passes were made with the 22 gauge [employer] biopsy needle using a transduodenal approach. A visible core of tissue was obtained. A preliminary cytologic examination was performed. Final cytology results are pending. There was no sign of significant endosonographic abnormalityin the gallbladder. The bile duct appears to be compressed laterally but the mass as it courses around it. Mildly dilated intrahepatic ducts. Otherwise normal visualized portions of liver (limited exam). No lymphadenopathy seen. Impression: 6 cm mass in the region of the pancreas head that may actually be arising from the duodenal wall and may represent a GIST or sarcoma, less likely a neuroendocrine tumor or adenocarcinoma-s/p FNB. ERCP deferred as the bile duct is extrinsically compressed but not clearly obstructed yet, andLFTs are normal. Recommendation: Discharge patient to home. Advance diet as tolerated. Await cytology results. Present at GI Tumor Board for treatment recommendations. 11/25/2019 EUS [facility] cytopathology per Acc# [id number] showed Neoplastic Cells Present. Consistentwith g astrointestinal stromal tumor (GIST), epithelioid and spindle cell. The lesional cells are immunoreactive for Ckit(CD117) and DOG1; they are essentially negative for SMA, desmin, S100, CKAE1/3, synaptophysin and chromogranin. The immunostain findings support the diagnosis. Final risk assessmentwill be made following examination of resection specimen. Molecular studies are being ordered; when available, results will be issued in molecular pathology reports. 12/07/2019 Surgical Oncology Consult. Mrs. Gonzalez was seen in the surgery clinic. She was accompanied by her friend-Lesli. She gave a history that began last January when she just felt weary and weak and started noticing some intermittent dark stools. In March she felt sick and had dizziness and quite a lot of nausea but had not yet vomited. The symptoms would come and go and then eventually she presented to the [facility] ED with a hemoglobin of 8.5. She received a blood transfusion and was referred to her primary care physician for follow-up where Dr. Wheeler referred her to Dr. Matthias Harris for upper endoscopy. The upper endoscopy apparently showed a duodenal ulcer and she was started on omeprazole and the bleeding stopped. In early August she had a repeat EGD and the omeprazole dose wasincreased. In late September she began having worsening dark stools when they tried to decrease her omeprazole dose. Denied jaundice symptoms. Denied prior history of pancreatitis. She endorsed some nausea with decreased appetite. About 2 years ago she weighed 125 pounds and the lowest weight was 114 poundsrecently but she was able to put on about 5 to 6 pounds. 12/31/2019 she started imatinib for 400 mg twice daily per Dr. Dozier and received approximately 1 month of treatment before the fever and neutropenia hospitalization. She was discharged from the hospital on 02/04/2020. Operations/Major Procedures: Operations: 02/23/2020 Surgeon(s) and Role: * Emely Galdamez MD - Primary * Jaycee Brumfield MD - Resident * Palmer Ledezma MD - Resident: Procedure(s): @PANCREATECTOMY, WHIPPLE TYPE WITH PANCREATOJEJUNOSTOMY @JEJUNOSTOMY TUBE PLACEMENT PANCREATIC STENT INSERTION @OMENTAL FLAP, INTRA-ABDOMINAL Operative Findings: There is no evidence of metastatic disease. The liver was very healthy-appearing. She had a large softball size mass arising from the duodenum but fortunately it was not invasive tothe underlying peritoneum/IVC or SMA/portal vein. The Whipple resection was therefore quite straightforward. Her pancreas was completely jmqdft-lyudvnlrr-slgy gland and small duct approximately 1 mm indiameter. We elected to stent the pancreatic anastomosis using an externalized 5 Belizean pancreatic duct stent which was passed approximately 10 cm down into the pancreatic remnant body and tail. A 19 Belizean Jimmy drain was placed in through a right lateral stab incision and passed posterior to the bile duct anastomosis and then anterior to the pancreatic anastomosis. We created an omental pedicle flap from the falciform ligament and used this to cover the korin hepatis dissection. A 12 Belizean feeding jejunostomy tube was placed approximately 30 cm downstream from the GJ anastomosis. The GJ anastomosis was an antecolic side to side, stapled, gastrojejunostomy anastomosis along the posterior aspect of the stomach. The pancreatic duct stent was exteriorized through a needle tip incision in the left midabdomen, secured to the skin and then connected to bile bag drainage. Hospital Course: Mary Kay Gonzalez was taken to the operating room where the above procedures were performed. She tolerated the operation well and without complication. She was admitted post-operatively for clinical monitoring and further management. The patient's hospital course was complicated by delayed gastric emptying / gastroparesis (managed with Reglan). She was deemed stable for discharge on post-operative day 7 with VNA and TF services. Hospital Course: 02/22 POD0: OR for Whipple; tolerated well. SUSHIL overnight post-op with adequate pain control. 02/23 POD1: Intermittent nausea, NGT to LCWS. OOB, walking. Abx d/c'd as bile duct Cx with NGTD. 02/24 POD2: Allen removed with return of spontaneous voiding, ambulatory 02/25 POD3: NGT removed. Slept well. +flatus and BM. Started trickle TF. 02/26 POD4: PD stent capped. Diet advanced to clears. Epidural wean initiated. 02/27 POD5: Diet advanced to regular diet. TF advanced to goal. Epidural and JOSE drain removed. 02/28 POD6: Small volume emesis of undigested food x 2, 1 reported small volume emesis that was red. Reglan started. Monitoring PO intake. TF cycled x 16 hours at 52 cc/h 03/01 POD7: No further emesis, hemoglobin stable. Patient cleared for d/c home with VNA and TF services. 03/24 - Readmission: HD0 03/24: Admitted from ED. NGT placed, reglan restarted?? HD1??03/25: NGT remained to LCWS, output decreased overnight?? HD2 03/26: NGT removed after passing clamp trial HD3 03/27: tolerated clears, OOB HD4 03/28: Advanced to 1/2 portion reg diet, cycled TF x 18 hours at 70cc/hr to provide full nutritional support. HD5 03/29: Tolerating cyclic TF's and small volume meals. + BM this morning. Patient cleared for d/chome with VNA and TF services. ?? Medications: ??? imatinib (Gleevec) 100 mg tablet ??? multivitamin (THERAGRAN) Tablet ??? ferrous sulfate (IRON ORAL) ??? cholecalciferol, Vitamin D3, 50 mcg (2,000 unit) Capsule ??? traMADoL (Ultram) 50 mg Tablet ??? sucralfate (Carafate) 1 gram Tablet ??? tfacor-pdxgyomd-qeunwmc DR (Creon 24) 24,000-76,000 -120,000 unit Capsule, Delayed Release(E.C.) ??? esomeprazole (NexIUM) 40 mg Capsule, Delayed Release(E.C.) ??? docusate sodium (Colace) 100 mg Capsule ??? acetaminophen (Tylenol) 500 mg Tablet ??? omeprazole (PriLOSEC) 40 mg Capsule, Delayed Release(E.C.) Laboratory studies: None to review Pathology: 02/23/2020 Acc# [id number] Surgical Pathology DIAGNOSIS A. 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 Common hepatic artery lymph node, excision: - One benign lymph node (0/1) - Unremarkable pancreatic tissue Electronically signed by: Judah Estrada MD Verified: 03/01/2020 Dermatopathologist, Bone & Soft Tissue Pathologist Performed at: -[facility] [place], [place], [place] SYNOPTIC Clinical Preresection Treatment: Systemic therapy performed (type) - Imatinib Specimen Procedure: Whipple Tumor Tumor Site: Small intestine Tumor Location: Duodenum Histologic Type: Gastrointestinal stromal tumor - Predominantly spindled with focal epithelioid component Histologic Grade: G1: Low grade; mitotic rate <= 5 / 5 mm2 Tumor Size: 7.3 x 5.4 x 5.2 Centimeters (cm) Tumor Focality: Unifocal Mitotic Rate: 2 mitoses per 5 mm2 Necrosis: Present Extent: 5% Risk Assessment: Cannot be determined Treatment Effect: Present Percentage of Viable Tumor: 95% Margins Margins: Uninvolved by GIST Distance of Tumor from Closest Margin: 0.1 mm Closest Margin: Inferior soft tissue margin Lymph Nodes Number of Lymph Nodes Involved: 0 Number of Lymph Nodes Examined: 23 Pathologic Stage Classification (pTNM, AJCC 8th Edition) TNM Descriptors: y (post-treatment) Primary Tumor (pT): pT3 Regional Lymph Nodes (pN): pN0 Additional Findings Additional Findings: Suppurative inflammation with numerous bacterial organisms is also identified. The tumor abuts but does not invade the pancreas. Special Studies Immunohistochemical Studies: Not performed Molecular Genetic Studies: Performed, see separate report Tumor Block(s): A7-A19 Normal Block(s): A20 CAP eCC June 2019 Annual Release Objective: Vitals: Blood pressure 108/60, pulse 62, temperature 36.1 ??C (97 ??F), resp. rate 16, height 160 cm(5' 2.99), weight 51.2 kg (112 lb 12.8 oz), SpO2 100 %. 08/07/2021 she weighed 112 pounds. 03/20/2020 she weighed 105 pounds. Her weight before surgery was 115 pounds. General: Mary Kay is very well appearing. She ambulates onto the exam table without any difficulty. She is by herself today. Abdomen: Soft, non distended, non tender. Midline laparotomy scar with no hernias. Extremities: No peripheral edema and symmetric bilaterally. Assessment and plans: Mary Kay comes into the surgery clinic today for her annual post Whipple follow-up appointment. She has been followed closely by Dr. Dozier who has been prescribing adjuvant Gleevecbut in the reduced dose setting giving her neoadjuvant Gleevec back toxicity with neutropenia at [id number] mg dose. Her last CT scan on 08/01/2020 showed no evidence of recurrent disease per Dr. Dozier's notes. She really seems to be doing well on the reduced dose, 200 mg, imatinib. We reviewed the CT images and there are no signs of recurrence either local or metastatic recurrence. The Whipple anatomy looks good. She has been off Creon and doing well. No symptoms of pancreatic exocrine insufficiency and she really mostly eats a very normal diet. Her mother is in her mid 80s living in [place] all alone and she is considering moving back to [place] to spend time with her though she will wait for her youngest son to finish high school which will be in a year before considering any further moves. She sees Dr. Dozier in about 6 months time up in [facility] for follow-up. Is great to see that she is doing so well and as long as there are no concerns I will not need to continue to follow her annually as she is being followed so closely by Dr. Dozier. Reid Galdamez MD 08/07/2021 This note was created using [employer]) voice recognition software. documented in this encounter Plan of Treatment Upcoming Encounters Date Type Specialty Care Team Description 02/15/2022 Office Visit Hematology and Oncology Morris Dozier MD [facility] ON[facility]OGY [place], [place] [address] (Wo rk) documented as of this encounter Goals Goal Patient Goal Associated Recent Patient-Stated? Author Type Problems Progress DH Home Medication Patient No Rovinicio ky, Compliance and Facing Brandt Morin Understanding Action Plan [facility] Note: Formatting of this note might be d ifferent from the original. Remain 95% adherent to Imatinib therapy without significant neutropenia as assessed by CBC labs in clinic every 1 to 3 months documented as of this encounter Visit Diagnoses Diagnosis Pancreatic insufficiency Other specified disease of pancreas documented in this encounter Care Teams Manager Resource Relationship Specialty Start Date End Date Irving Wheeler MD PCP - General 06/23/[address] [place] [phone] documented as of this encounter
--- OUTSIDE RECORDS SUMMARY | 2022-02-01 00:24 | XMS_ITS | Encounter Summary ---
:1960 Author Organization [facility] [place] [address] Care Team Providers Name Role Phone Irving Wheeler MD Primary Care Provider [phone] Reason for Visit Reason Comments Prior Authorization Imitanib Mesylate 100 mg Encounter Details Date Type Department Care Team Description 09/18/2020 Specialty Pharm[place] [facility] [place] Prior Authorization [facility] Marcela Morin (Imitanib Mesylate Drive 100 mg) [place] [id number] Social History Tobacco Use Types Packs/Day Years [...] documented as of this encounter Progress Notes Marcela Cornell - 09/18/2020 2:54 PM EDT [facility], Medication Prior Authorization Patient: Mary Kay Gonzalez Patient : 1960 Patient Address: [address] [place] [address] (home) Medication Name: CLARISSA IMATINIB TABLET Medication ID: [id number] Patient Location: [facility] Patient Location Comment: Subscriber Insurance: [facility] Ayla [facility] Subscriber Insurance Comment: Fax: Physician: MORRIS YANG Physician Comment: Sent Via: [facility] Sood: [id number] Ref/Case/PA#: Medication Strength Frequency Requested: Imatinib Mesylate 100 mg/ take 2 x 100mg tabs by mouth daily Qty/Day Supply: New Start: Change in Dose Diagnosis & ICD-10 Code: C49.A3 Gastrointestinal stromal tumor of small intestine Patient Notified: No Submission Notes: INCREASED DOSE NEEDS NEW PRIOR AUHORIZATION Marcela Cornell 09/18/20 3:33 PM Marcela Cornell - 09/18/2020 2:54 PM EDT [facility], Prior Authorization Approval Medication Name: SHASHI IMATINIB TABLET Medication ID: [id number] Approval Dates: 09/18/2020 to 03/21/2021 Insurance requirements/notes: Fill through Pharmacy Other Notes: none Case/Reference #: none referenced Approval notification Received via: Fax Copay: $0.00 Copay assistance: None Copay Notes: Insurance mandated Pharmacy: [facility] Fill[facility] at [facility]: Yes Pharmacy staff will be reaching out to the patient to inform them of their medication's approval by their insurance. If applicable, a pharmacist will speak with the patient to offer our specialty pharmacy services and to arrange delivery of their medication. Marcela Cornell 09/18/20 3:54 PM documented in this encounter Plan of Treatment Upcoming Encounters Date Type Specialty Care Team Description 02/15/2022 Office Visit Hematology and Oncology Morris Yang MD [facility] ONCOLOGY [place], [place] [address] (Wo rk) documented as of this encounter Goals Goal Patient Goal Associated Recent Patient-Stated? Author Type Problems Progress DH Home Medication Patient No Tamera calvillo, Compliance and Facing Brandt Morin, Understanding Action Plan [facility] Note: Formatting of this note might be d ifferent from the original. Remain 95% adherent to Imatinib therapy without significant neutropenia as assessed by CBC labs in clinic every 1 to 3 months documented as of this encounter Visit Diagnoses Not on filedocumented in this encounter Care Teams Incident Engineer Relationship Specialty Start Date End Date Irving Wheeler MD PCP - General 06/23/[address] [place] [address] documented as of this encounter
--- OUTSIDE RECORDS SUMMARY | 2022-02-01 00:24 | XMS_ITS | Encounter Summary ---
:1960 Author Organization [facility] [place] [address] Care Team Providers Name Role Phone Irving Wheeler MD Primary Care Provider [phone] Encounter Details Date Type Department Care Team Description 01/19/2021 Ancillary Procedure Radiology Library at [facility] pr[facility] Wheeler [facility] MD Angel [facility] [address] [place] [phone] (Wo rk) Social History Tobacco Use Types [...] Visit Hematology and Oncology Morris Dozier MD [facility] ONCOLOGY [place], [place] [address] (Wo rk) documented as of this encounter Goals Goal Patient Goal Associated Recent Patient-Stated? Author Type Problems Progress Home Medication Patient No Tamera calvillo, Compliance and Facing Brandt Morin Understanding Action Plan [facility] Note: Formatting of this note might be d ifferent from the original. Remain 95% adherent to Imatinib therapy without significant neutropenia as assessed by CBC labs in clinic every 1 to 3 months documented as of this encounter Procedures Procedure Name Priority Date/Time Associated Diagnosis Comme nts FILM LIBRARY Routine 01/19/2021 12:00 AM Results for this STORAGE ONLY CT EDT procedure ar e in CHEST ABDOMEN the results PELVIS section. documented in this encounter Results Film Library- Storage Only CT Chest Abdomen Pelvis (01/19/2021 12:00 AM EDT) Specimen (Source) Anatomical Location Collection Method / Collectio n Time Received Time / Laterality Volume Narrative RAD - 01/22/2021 3:01 PM EDT This exam is auto-finalizing. It's purpo se is for storage only. Irving Wheeler MD G FILM LIBRARY ORDERABLES Performing Organization Address City/State/ZIP Code Phon e Number RAD [place], [place] documented in this encounter Visit Diagnoses Not on filedocumented in this encounter Care Teams Hog Dropper Relationship Specialty Start Date End Date Irving Wheeler MD PCP - General 06/23/[address] [place] [address] documented as of this encounter
--- OUTSIDE RECORDS SUMMARY | 2022-02-01 00:24 | XMS_ITS | Encounter Summary ---
:1960 Author Organization [facility] [place] [place] [address] Care Team Providers Name Role Phone Irving Wheeler MD Primary Care Provider [phone] Encounter Details Date Type Department Care Team Description 10/06/2020 Telephone Hematology/Oncology at Katherin Corona RN [address] [phone] Social History Tobacco Use Types Packs/Day Years [...] Telephone Encounter - Katherin Corona RN - 10/06/2020 1:30 PM EDT LAB TRACKING Jen Farmer [phone] 1960 ?? 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 LABS ORDERED: cbc diff ?? MEDICATIONS: Imatinib 200mg daily Assessment/Plan: 4/30 imatanib 200mg daily. CBC every week at [facility]. Seen by Bulmaro Beckham APRN inclinic today will continue weekly CBC and stay at same dose. FUV in 1 month to discuss increasing dose. Results for JEN FARMER ( ) as of 10/06/2020 13:32 Ref. Range 09/22/2020 00:00 09/29/2020 00:00 10/06/2020 00:00 WBC Unknown 3.4 3.5 3.6 Hemoglobin Unknown 12.8 12.5 13.1 Hematocrit Unknown 39.0 38.0 40.0 Platelets Unknown 218 209 231 Neutr Abs (ANC) Unknown 1.75 1.95 2.2 documented in this encounter Plan of Treatment Upcoming Encounters Date Type Specialty Care Team Description 02/15/2022 Office Visit Hematology and Oncology Morris Dozier MD [facility] DR ONCOLOGY [place] [address] (Wo rk) documented as of this encounter Goals Goal Patient Goal Associated Recent Patient-Stated? Author Type Problems Progress DH Home Medication Patient No Tamera calvillo, Compliance and Facing Brandt Morin Understanding Action Plan [facility] Note: Formatting of this note might be d ifferent from the original. Remain 95% adherent to Imatinib therapy without significant neutropenia as assessed by CBC labs in clinic every 1 to 3 months documented as of this encounter Procedures Procedure Name Priority Date/Time Associated Diagnosis Comme nts CBC (WITH DIFF) Routine 10/06/2020 Results for this procedure are in the resu lts section. documented in this encounter Results CBC (with Diff) (10/06/2020) P athologist Signature WBC 3.6 Hemoglobin 13.1 Hematocrit 40.0 Platelets 231 Neutr Abs (ANC) 2.2 Specimen (Source) Anatomical Location Collection Method / Collectio n Time Received Time / Laterality Volume Blood 10/06/2020 Katherin Corona HOSPITAL CLERK ORDERABLES documented in this encounter Visit Diagnoses Not on filedocumented in this encounter Care Teams Laboratory Worker Relationship Specialty Start Date End Date Irving Wheeler MD PCP - General 06/23/19 [address] [place] [address] documented as of this encounter
--- OUTSIDE RECORDS SUMMARY | 2022-02-01 00:24 | XMS_ITS | Encounter Summary ---
:1960 Author Organization [facility] [place] [address] Care Team Providers Name Role Phone Irving Wheeler MD Primary Care Provider [phone] Encounter Details Date Type Department Care Team Description 12/01/2020 Office Visit Hematology/Oncology Nicanor Dozier MD [facility] [place] [address] Gastrointestinal stromal at [facility] Tere Beckham APRN [address] [place] [address] [place] [address] tumor (GIST) of duodenum [address] [place] [phone] Social History Tobacco Use Types Packs/Day [...] Sign Reading Time Taken Comments Blood Pressure 111/48 12/01/2020 1:46 PM EDT Pulse 69 12/01/2020 1:46 PM EDT Temperature 36.1 ??C (97 ??F) 12/01/2020 1:46 PM EDT Respiratory Rate 18 12/01/2020 1:46 PM EDT Oxygen Saturation 99% 12/01/2020 1:46 PM EDT Inhaled Oxygen Concentration - - Weight 50.7 kg (111 lb 12.8 oz) 12/01/2020 1:46 PM EDT Height 160 cm (5' 3) 12/01/2020 1:46 PM EDT Body Mass Index 19.8 12/01/2020 1:46 PM EDT documented in this encounter Progress Notes Tere Beckham APRN - 12/01/2020 3:00 PM EDT Subjective: Patient ID: Mary Kay Gonzalez is a 60 y.o. female. Patient Active Problem List Diagnosis [...] on 12/31/19. ?? [place] [facility] [place] She had presented [...] mg per day. ??2:48 PM INTERVAL HPI 12/01/20 Mary Kay Gonzalez is a 60 yo [...] increasing the dose to 400mg QD. She has now been taking 300mg Imatinib QD for 4 weeks and CBCs have remained stable. Mary Kay is feeling very well today. She states she has had no noticeable side effects from taking Imatinib 300mg po QD. She states she can not come up with any good reason for not proceeding with the next dose escalation to 400mg po QD. She denies any increased fatigue. She is moving to a new place and says that while she is sleeping less, the quality of her sleep is good. Overall she says she feels really good. She denies nausea or abdominal pain. She moves her bowels regularly. She has a good appetite. Mary Kay denies acute vision changes. She denies fever, chills shortness of breath or chest pain. She denies neuropathy. She has not had any extremity swelling. No itchy skin or skin rash. Remaining ROS are negative. No Known Allergies Current Medications ??? imatinib (Gleevec) 100 mg tablet ??? imatinib (GLEEVEC) chemo tablet ??? multivitamin (THERAGRAN) Tablet ??? omeprazole (PriLOSEC) 40 mg Capsule, Delayed Release(E.C.) ??? tbnhin-wumjqaio-iewwegp DR (Creon 24) 24,000-76,000 -120,000 unit Capsule, Delayed Release(E.C.) ??? ferrous sulfate (IRON ORAL) ??? cholecalciferol, Vitamin D3, 50 mcg (2,000 unit) Capsule No family history on file. Social History Tobacco Use ??? Smoking status: Former Smoker Packs/day: 0.50 Types: Cigarettes Quit date: 1994 Years since quittin.5 ??? Smokeless tobacco: Never Used ??? Tobacco comment: never vape Vaping Use ??? Vaping Use: Never used Substance Use Topics ??? Alcohol use: Not Currently Comment: none since 05/12/2019 ??? Drug use: Never Review of Systems Constitutional: Negative for fatigue and fever. HENT: Negative for mouth sores. Eyes: Negative. Respiratory: Negative for cough and shortness of breath. Gastrointestinal: Negative for abdominal distention, abdominal pain, blood in stool, constipation, diarrhea and nausea. Genitourinary: Negative. Musculoskeletal: Negative. Skin: Negative. Negative for rash. Neurological: Negative. Hematological: Negative. Psychiatric/Behavioral: Negative. Objective: Physical Exam Vitals reviewed. Constitutional: Comments: Pleasant, well appearing female in NAD. HENT: Mouth/Throat: Mouth: Mucous membranes are moist. Pharynx: Oropharynx is clear. Cardiovascular: Rate and Rhythm: Normal rate and regular rhythm. Heart sounds: Normal heart sounds. Pulmonary: Breath sounds: No wheezing or rales. Abdominal: General: Bowel sounds are normal. Palpations: Abdomen is soft. Tenderness: There is no abdominal tenderness. Musculoskeletal: Cervical back: No tenderness. Right lower leg: No edema. Left lower leg: No edema. Lymphadenopathy: Cervical: No cervical adenopathy. Skin: General: Skin is warm and dry. Findings: Bruising present. Comments: Well-healed vertical abdominal incision without tenderness Neurological: Mental Status: She is oriented to person, place, and time. Psychiatric: Mood and Affect: Mood normal. Thought Content: Thought content normal. BP 111/48 (Patient Position: Sitting) Pulse 69 Temp 36.1 ??C (97 ??F) (Temporal) Resp 18 Ht 160 cm (5' 3) Wt 50.7 kg (111 lb 12.8 oz) SpO2 99% BMI 19.80 kg/m?? LABS 12/01/20 WBC 4.75; ANC 2.97; H/H 12.8/ 38.0; PLT 205; BUN 11; CREAT 0.6; BILI 0.4; LFTs and electrolytes normal. 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 She was on neoadjuvant Imatinib, had a Whipple 02/28 and is now on maintenance Imatinib 300mg QD. Mary Kay is doing very well. She is back to work. She is tolerating Imatinib 300mg po QD with little toxicity and stable CBCs. Plan: Increase Imatinib to 400mg po QD. New prescription sent for (120) 100 mg tablets, 3R, take 4 tabletsonce daily. Repeat CBC in 2 weeks. RTC 4 weeks with labs. Call sooner if not tolerating medication increase. documented in this encounter Plan of Treatment Upcoming Encounters Date Type Specialty Care Team Description 02/15/2022 Office Visit Hematology and Oncology Morris Dozier MD [facility] DR ONCOLOGY [place], [place] [address] ([facility]) documented as of this encounter Goals Goal Patient Goal Associated Recent Patient-Stated? Author Type Problems Progress DH Home Medication Patient No Tamera calvillo, Compliance and Facing Brandt Morin Understanding Action Plan [facility] Note: Formatting of this note might be d ifferent from the original. Remain 95% adherent to Imatinib therapy without significant neutropenia as assessed by CBC labs in clinic every 1 to 3 months documented as of this encounter Visit Diagnoses Diagnosis Gastrointestinal stromal tumor (GIST) of duodenum documented in this encounter Care Teams Financial Sales Manager Relationship Specialty Start Date End Date Irving Wheeler MD PCP - General 06/23/[address] [place] [address] documented as of this encounter
--- OUTSIDE RECORDS SUMMARY | 2022-02-01 00:24 | XMS_ITS | Encounter Summary ---
:1960 Author Organization [facility] [address] Care Team Providers Name Role Phone Irving Wheeler MD Primary Care Provider [phone] Encounter Details Date Type Department Care Team Description 12/29/2020 Office Visit Hematology/Oncology Mahamed Beckham testinal stromal tumor (GIST) of duodenum; at [facility] Tere Morin APRN Malignant GIST (gastrointestinal stromal tumor) of small intestine; [address] Normocytic anemia [place], [place] HEMATOLOGY [phone] ONCOLOGY [phone] [place] [address] Social History Tobacco Use Types Packs/Day Years [...] Sign Reading Time Taken Comments Blood Pressure 104/52 12/29/2020 1:28 PM EDT Pulse 85 12/29/2020 1:28 PM EDT Temperature 36.8 ??C (98.2 ??F) 12/29/2020 1:28 PM EDT Respiratory Rate 20 12/29/2020 1:28 PM EDT Oxygen Saturation 99% 12/29/2020 1:28 PM EDT Inhaled Oxygen Concentration - - Weight 52.7 kg (116 lb 3.2 oz) 12/29/2020 1:28 PM EDT Height 160 cm (5' 2.99) 12/29/2020 1:28 PM EDT Body Mass Index 20.59 12/29/2020 1:28 PM EDT documented in this encounter Progress Notes Tere Beckham, ANA - 12/29/2020 1:30 PM EDT Subjective: Patient ID: Mary Kay [...] on 12/31/19. ?? She was [place] [facility] [place]04/[place]. She had presented [...] mg per day. ??2:48 PM INTERVAL HPI 12/29/20 Mary Kay Gonzalez is a 60 yo [...] 400mg QD. She has now been taking 400mg po QD since 12/01/20. Mary Kay says overall she is doing well. She noticed a little increase in fatigue after she started dealing with the GIST diagnosis last year. The fatigue has not worsened as the Imatinib has increased. She is working and is quite active. She does not think she is having any increased side effects from the increase in Imatinib from 300mg daily to 400mg daily. Mary Kay says she has had 2 episodes of painful bloating that occurred this past month. Both times it occurred suddenly after eating. She says it seems to occur when she fills her stomach quickly. Acute cramping occurred for about 4-5 minutes, but the feeling of fullness lasted 6-7 hours. It did not cause vomiting. She notes the day after she has numerous bowel movements. There was no further pain. Shehas not seen any blood in stool. Generally she eats what she wants and her bowels move daily without difficulty. Mary Kay has not had fevers, chills, sweats or prolonged illness since her last clinic visit. She denies shortness of breath, new cough, chest pain or numbness or tingling. She denies itching skin, rash or unusual bleeding or bruising. No Known Allergies Current Medications ??? imatinib (Gleevec) 100 mg tablet ??? imatinib (Gleevec) 100 mg tablet ??? imatinib (GLEEVEC) chemo tablet ??? multivitamin (THERAGRAN) Tablet ??? omeprazole (PriLOSEC) 40 mg Capsule, Delayed Release(E.C.) ??? hgnszb-qcmwnhce-qwmzkud DR (Creon 24) 24,000-76,000 -120,000 unit Capsule, Delayed Release(E.C.) ??? ferrous sulfate (IRON ORAL) ??? cholecalciferol, Vitamin D3, 50 mcg (2,000 unit) Capsule No family history on file. Social History Tobacco Use ??? Smoking status: Former Smoker Packs/day: 0.50 Types: Cigarettes Quit date: 1994 Years since quittin.6 ??? Smokeless tobacco: Never Used ??? Tobacco comment: never vape Vaping Use ??? Vaping Use: Never used Substance Use Topics ??? Alcohol use: Not Currently Comment: none since 05/12/2019 ??? Drug use: Never Review of Systems Constitutional: Negative for fatigue and fever. HENT: Negative for mouth sores. Eyes: Negative. Respiratory: Negative for cough and shortness of breath. Gastrointestinal: Positive for abdominal pain. Negative for abdominal distention, blood in stool, constipation, diarrhea, nausea and vomiting. With bloated feeling Genitourinary: Negative. Musculoskeletal: Negative. Skin: Negative. Negative [...] No bruising. Neurological: Mental Status: She is oriented to person, place, and time. Psychiatric: Mood and Affect: Mood normal. Thought Content: Thought content normal. BP 104/52 (Patient Position: Sitting) Pulse 85 Temp 36.8 ??C (98.2 ??F) (Temporal) Resp 20 Ht 160 cm (5' 2.99) Wt 52.7 kg (116 lb 3.2 oz) SpO2 99% BMI 20.59 kg/m?? LABS 12/29/20 WBC 4.31; ANC 2.28; H/H 11.4/ 34.1; PLT 196; BUN 13; CREAT 0.6; CA++8.4; TP 6.1; ALP 54; AST 29; ALT47 LABS 12/01/20 WBC 4.75; ANC 2.97; H/H [...] back to work. She is tolerating Imatinib 400mg po QD with little toxicity and stable CBCs. Plan: Continue Imatinib 400mg po QD. Plan restating CT before next visit. RTC in 4 weeks with labs, CT, Call sooner for abdominal pain that does not resolve. Repeat CBC in 2 weeks. RTC 4 weeks with labs. Call sooner if not tolerating medication increase. documented in this encounter Plan of Treatment Upcoming Encounters Date Type Specialty Care Team Description 02/15/2022 Office Visit Hematology and Oncology Morris Dozier MD [facility] DR ONCOLOGY [place], [place] [address] (Wo rk) documented as of this encounter Goals Goal Patient Goal Associated Recent Patient-Stated? Author Type Problems Progress DH Home Medication Patient No Tamera calvillo, Compliance and Facing Brandt Morin Understanding Action Plan [facility] Note: Formatting of this note might be d ifferent from the original. Remain 95% adherent to Imatinib therapy without significant neutropenia as assessed by CBC labs in clinic every 1 to 3 months documented as of this encounter Visit Diagnoses Diagnosis Gastrointestinal stromal tumor (GIST) of duodenum Malignant GIST (gastrointestinal stromal tumor) of small intestine Normocytic anemia Anemia, unspecified documented in this encounter Care Teams Handle Bender Relationship Specialty Start Date End Date Irving Wheeler MD PCP - General 06/23/19 [address] [place] [address] documented as of this encounter
--- OUTSIDE RECORDS SUMMARY | 2022-02-01 00:24 | XMS_ITS | Encounter Summary ---
:1960 Author Organization [facility] [place] [address] Care Team Providers Name Role Phone Irving Wheeler MD Primary Care Provider [phone] Encounter Details Date Type Department Care Team Description 01/31/2021 Orders Only Hematology/Oncology [place], [place] testinal stromal at [facility] Tere Morin APRN tumor (GIST) of duodenum [address] [place], [place] HEMATOLOGY [address] ONCOLOGY [phone] [place], [place] [id number] Social History Tobacco Use Types Packs/Day Years [...] documented as of this encounter Miscellaneous Notes Addendum Note - Anna Gibson, [facility] - 01/31/2021 5:07 PM EDT Addended by: ANNA GIBSON on: 02/01/2021 08:12 AM Modules accepted: Orders documented in this encounter Plan of Treatment Upcoming Encounters Date Type Specialty Care Team Description 02/15/2022 Office Visit Hematology and Oncology Morris Dozier MD [facility] ON[facility]OG[facility] [place] [address] (Wo rk) documented as of this encounter Goals Goal Patient Goal Associated Recent Patient-Stated? Author Type Problems Progress DH Home Medication Patient No Tamera calvillo, Compliance and Facing Anna Morin Understanding Action Plan [facility] Note: Formatting of this note might be d ifferent from the original. Remain 95% adherent to Imatinib therapy without significant neutropenia as assessed by CBC labs in clinic every 1 to 3 months documented as of this encounter Visit Diagnoses Diagnosis Gastrointestinal stromal tumor (GIST) of duodenum documented in this encounter Care Teams Warning Analyst Relationship Specialty Start Date End Date Irving Wheeler MD PCP - General 06/23/[address] [place] [phone] documented as of this encounter
--- OUTSIDE RECORDS SUMMARY | 2022-02-01 00:24 | XMS_ITS | Encounter Summary ---
:1960 Author Organization [facility] [place] [address] Care Team Providers Name Role Phone Irving Wheeler MD Primary Care Provider [phone] Encounter Details Date Type Department Care Team Description 06/11/2021 Orders Only Hematology/Oncology [place], Gastroin testinal stromal at [facility] Tere Morin APRN tumor (GIST) of duodenum [address] [place], [place] HEMATOLOGY [address] ONCOLOGY [phone] [place] [address] Social History Tobacco Use Types [...] Visit Hematology and Oncology Morris Dozier MD [facility] ONCOLOGY [place], [place] [address] (Wo rk) documented as of this encounter Goals Goal Patient Goal Associated Recent Patient-Stated? Author Type Problems Progress DH Home Medication Patient No Tamera calvillo, Compliance and Facing Brandt Morin Understanding Action Plan [facility] Note: Formatting of this note might be d ifferent from the original. Remain 95% adherent to Imatinib therapy without significant neutropenia as assessed by CBC labs in clinic every 1 to 3 months documented as of this encounter Visit Diagnoses Diagnosis Gastrointestinal stromal tumor (GIST) of duodenum documented in this encounter Care Teams Water Pump Servicer Relationship Specialty Start Date End Date Irving Wheeler MD PCP - General 06/23/[address] [place] [phone] documented as of this encounter
--- OUTSIDE RECORDS SUMMARY | 2022-02-01 00:24 | XMS_ITS | Encounter Summary ---
:1960 Author Organization [facility] [place] [address] Care Team Providers Name Role Phone Irving Wheeler MD Primary Care Provider [phone] Reason for Visit Reason Comments Medication Refill Encounter Details Date Type Department Care Team Description 04/02/2021 Specialty Pharmacy Pharmacy at [facility] [place]ielena [place] [address] Social History Tobacco Use Types Packs/Day Years [...] of this encounter Progress Notes Marielena Galdamez RP - 04/02/2021 3:23 PM EST Clinical Management Plan: Refill Specialty Pharmacy Consultation; Marielena Galdamez [facility] Comprehensive Medication Management (CMM) Mary Kay Manciay Ms. Mary Kay Gonzalez is a 60 [...] Known Allergies Medication Reconciliation Discrepancies (compared to [facility] med list) No Specialty Pharmacy Refill Questionnaire Refill Questionnaire 04/02/2021 What is the name of the specialty medication you are refilling? Imatinib Are you taking any new medications? No Any new medical condition? No Any new allergies? No Any new side effects that are bothersome? No Please explain - What date will you need this fill by? 04/09/2021 Adherence: Any missed doses? No Patient understands no changes to current drug regimen were made. Marielena Galdamez RPH 04/02/21 3:25 PM documented in this encounter Plan of Treatment Upcoming Encounters Date Type Specialty Care Team Description 02/15/2022 Office Visit Hematology and Oncology Morris Dozier MD [facility] [address] ONCOLOGY [place] [address] (Wo rk) documented as of this encounter Goals Goal Patient Goal Associated Recent Patient-Stated? Author Type Problems Progress DH Home Medication Patient No Tamera calvillo, Compliance and Facing Brandt Morin Understanding Action Plan [facility] Note: Formatting of this note might be d ifferent from the original. Remain 95% adherent to Imatinib therapy without significant neutropenia as assessed by CBC labs in clinic every 1 to 3 months documented as of this encounter Visit Diagnoses Not on filedocumented in this encounter Care Teams Underground Electrician Relationship Specialty Start Date End Date Irving Wheeler MD PCP - General 06/23/[address] [place] [id number] documented as of this encounter
--- OUTSIDE RECORDS SUMMARY | 2022-02-01 00:24 | XMS_ITS | Encounter Summary ---
:1960 Author Organization [facility] [place] [address] Care Team Providers Name Role Phone Irving Wheeler MD Primary Care Provider [phone] Reason for Visit Reason Onset Date Comments Follow-up 01/31/2021 Encounter Details Date Type Department Care Team Description 01/31/2021 [facility] Laura MIR [address] [place], [place] [phone] Social History Tobacco Use Types Packs/Day [...] this encounter Miscellaneous Notes Telephone Encounter - Jessika Zhu RN - 01/31/2021 5:16 PM EDT Called and spoke with Mary Kay Gonzalez regarding this change. She is aware to take only x1 tab of the 400 mg Gleevec daily. She was thankful for the follow up. ----- Message from Tere Beckham APRN sent at 01/31/2021 5:11 PM EDT ----- Hi, The pharmacy has changed Blank'as Geevec to 400mg pills. Previously she has been taking (4) 100mg pills. Please call her to review the change so she doesn't take 4-400s! Thanks, Jennifer. It was ordered today. documented in this encounter Plan of Treatment Upcoming Encounters Date Type Specialty Care Team Description 02/15/2022 Office Visit Hematology and Oncology Morris Dozier MD [facility] [address] ONCOLOGY [place], [place] [address] (Wo rk) documented as of this encounter Goals Goal Patient Goal Associated Recent Patient-Stated? Author Type Problems Progress DH Home Medication Patient No Tamera calvillo, Compliance and Facing Brandt Morin Understanding Action Plan [facility] [place] Note: Formatting of this note might be d ifferent from the original. Remain 95% adherent to Imatinib therapy without significant neutropenia as assessed by CBC labs in clinic every 1 to 3 months documented as of this encounter Visit Diagnoses Not on filedocumented in this encounter Care Teams Vocational Teacher Relationship Specialty Start Date End Date Irving Wheeler MD PCP - General 06/23/[address] [place] [id number] documented as of this encounter
--- OUTSIDE RECORDS SUMMARY | 2022-02-01 00:24 | XMS_ITS | Encounter Summary ---
:1960 Author Organization [facility] [place] [address] Care Team Providers Name Role Phone Irving Wheeler MD Primary Care Provider [phone] Reason for Referral Diagnostic Test (Routine) - New Request Specialty Diagnoses / Procedures Referred By Contact Refer red To Contact Diagnoses Peripheral venous insufficiency Asymptomatic varicose veins of left lower extremity Robert Soliz, [facility] Vascular Lab 3v Procedures LE Unilateral Valvular Incomp Study DO [address] [phone] [place] [phone] Referral ID Status Reason Start Expiration Visits Visits Date Date Requested Authorized [id number] New Request Specialty 08/20/2021 08/20/2022 1 1 Service Requested Encounter Details Date Type Department Care Team Description 08/20/2021 Transcribe Orders Vascular Surgery Serge Soliz venous insufficiency; at [facility] Robert Mock DO Asymptomatic varicose veins of left lowe r extremity [address] [phone] Social History Tobacco Use Types Packs/Day Years [...] and Oncology Morris Dozier MD [facility] ONCOLOGY [place], [place] [address] (Wo rk) documented as of this encounter Goals Goal Patient Goal Associated Recent Patient-Stated? Author Type Problems Progress DH Home Medication Patient No Tamera calvillo, Compliance and Facing Brandt Morin, Understanding Action Plan [facility] ED Note: Formatting of this note might be d ifferent from the original. Remain 95% adherent to Imatinib therapy without significant neutropenia as assessed by CBC labs in clinic every 1 to 3 months documented as of this encounter Results LE Unilateral Valvular Incomp Study (09/14/2021 7:35 AM EDT) Component Value Ref Test Analysis Performed At [facility] gist Range Method Time Signature VB Text Department: Vascular Surgery Lab [facility] Report Patient: [id number] (GONZALEZ JEN) CPT: 52990 Referring Physician: ROBERT SOLIZ ?? Phone: Indications: 61 year old fem justyn with asymptomatic LEFT lower extremity varicose veins(spider veins), ? presence and extent of reflux Patient Positioning: ??Reverse Trendelenburg Findings: Left ? Reflux?Diameter (mm) ??De pth (mm) ?? Common Femoral Vein ??Competent ? Femoral Vein ? Competent ? Popliteal ?Competent ? GSV, Near SFJ ?Competent ? GSV, Proximal Thigh ??Competent ? GSV, Mid Thigh ? Competent ? GSV, Distal Thigh ?Competent ? GSV, ??Knee ? Competent ? GSV Prox Calf ?Competent ? SSV ?Reflux ? 1.9 ? 7.2 ?? Prox ASV ? Competent ? Mid ASV ? Competent ? Interpretation: LEFT: There is superficial venous reflux >2.5 seconds in the small saphenous vein in the upper posterior calf. No significant reflux in the great saphenous vein or the a nterior saphenous vein. No significant reflux in the common femoral vein, femoral vein or the popliteal vein. No evidence of common femoral, femoral or popliteal DVT. No evidence of superficial (GSV or SSV) thrombus. Comparison: No previous study in our vascular lab database f or comparison. Electronically Signed by: ANTONIA BOKOER on 2021-09-14 11:44: 28 AM VB Text End of Report [facility] Report Specimen (Source) Anatomical Collection Method Collection Time Re ceived Time Location / / Volume Laterality 09/14/2021 7:35 AM EDT Robert Soliz DO VASCULAR ORDERABLES Performing Organization Address City/State/ZIP Code Phon e Number VASCU[facility] documented in this encounter Visit Diagnoses Diagnosis Peripheral venous insufficiency Unspecified venous (peripheral) insuffic iency Asymptomatic varicose veins of left lowe r extremity Asymptomatic varicose veins documented in this encounter Care Teams Conventional Machinist Relationship Specialty Start Date End Date Irving Wheeler MD PCP - General 06/23/[address] [place] [address] documented as of this encounter
--- OUTSIDE RECORDS SUMMARY | 2022-02-01 00:24 | XMS_ITS | Encounter Summary ---
:1960 Author Organization [facility] [place] [address] Care Team Providers Name Role Phone Irving Wheeler MD Primary Care Provider [phone] Reason for Visit Reason Onset Date Comments Medication Refill 02/01/2021 Imatinib refill with changes Encounter Details Date Type Department Care Team Description 02/01/2021 Telephone Hematology Oncology at [facility] Melendez, Medication Refill St Laura MIR (Imatinib refill with [address] changes) [place] [phone] Social History Tobacco Use Types Packs/Day Years [...] this encounter Miscellaneous Notes Telephone Encounter - Sabra Melendez RN - 02/01/2021 4:47 PM EDT Oral Chemotherapy Check Note 02/01/2021 Mary Kay Lisa, 1960 Prescriptions for oral chemotherapy were reviewed as follows: Oral Chemotherapy Order: imatinib (Gleevec) 400 mg by mouth daily. Order details: ?? Dose: 400 mg. (Changed from 4 x 100 mg tablets to 1 x 400 mg tablet. Patient is aware. ?? Route: By mouth ?? Quantity to be dispensed #: 30 ?? Number of refills: 11 ?? Instructions: Take 1 tablet (400 mg) by mouth daily. Take with food and a large glass of water todecrease stomach irritation. ?? Cycle number and length: ongoing ?? Start date: Already taking Plan of care compared to information in the medical record, including note from provider on 01/31/21. The prescription was found To be complete and accurate. It was e-prescribed to [facility] pharmacy. documented in this encounter Plan of Treatment Upcoming Encounters Date Type Specialty Care Team Description 02/15/2022 Office Visit Hematology and Oncology Morris Dozier MD [facility] DR ONCOLOGY [place], [place] [address] (Wo rk) documented as of this encounter Goals Goal Patient Goal Associated Recent Patient-Stated? Author Type Problems Progress DH Home Medication Patient No Tamera calvillo, Compliance and Facing Brandt Morin Understanding Action Plan [facility] Note: Formatting of this note might be d ifferent from the original. Remain 95% adherent to Imatinib therapy without significant neutropenia as assessed by CBC labs in clinic every 1 to 3 months documented as of this encounter Visit Diagnoses Not on filedocumented in this encounter Care Teams Summer Sessions Director Relationship Specialty Start Date End Date Irving Wheeler MD PCP - General 06/23/[address] [place] [id number] documented as of this encounter
--- OUTSIDE RECORDS SUMMARY | 2022-02-01 00:24 | XMS_ITS | Encounter Summary ---
:1960 Author Organization [facility] [place] [address] Care Team Providers Name Role Phone Irving Wheeler MD Primary Care Provider [phone] Encounter Details Date Type Department Care Team Description 08/01/2021 Ancillary Procedure Radiology Library at Star Beckham, [facility]PER[facility] [address] [place], [place] [id number] [place] [address] (Wo rk) [phone] Social History Tobacco Use Types Packs/Day Years [...] Visit Hematology and Oncology Morris Dozier MD [facility] [address] ONCOLOGY [place], [place] [address] (Wo rk) documented as of this encounter Goals Goal Patient Goal Associated Recent Patient-Stated? Author Type Problems Progress Home Medication Patient No Rovinicio calvillo, Compliance and Facing Brandt Morin Understanding Action Plan [facility] Note: Formatting of this note might be d ifferent from the original. Remain 95% adherent to Imatinib therapy without significant neutropenia as assessed by CBC labs in clinic every 1 to 3 months documented as of this encounter Procedures Procedure Name Priority Date/Time Associated Diagnosis Comme nts FILM LIBRARY Routine 08/01/2021 9:25 PM Results f or this STORAGE ONLY CT EDT procedure ar e in CHEST ABDOMEN the results PELVIS section. documented in this encounter Results Film Library- Storage Only CT Chest Abdomen Pelvis (08/01/2021 9:25 PM EDT) Specimen (Source) Anatomical Location Collection Method / Collectio n Time Received Time / Laterality Volume Narrative RAD - 08/01/2021 9:25 PM EDT This exam is auto-finalizing. It's purpo se is for storage only. Tere Beckham APRN IMPhyllis FILM LIBRARY ORDERABLES Performing Organization Address City/State/ZIP Code Phon e Number RAD [place], [place] documented in this encounter Visit Diagnoses Not on filedocumented in this encounter Care Teams Auto Transmission Specialist Relationship Specialty Start Date End Date Irving Wheeler MD PCP - General 06/23/19 [address] [place] [address] documented as of this encounter
--- OUTSIDE RECORDS SUMMARY | 2022-02-01 00:24 | XMS_ITS | Encounter Summary ---
:1960 Author Organization [facility] [place] [address] Care Team Providers Name Role Phone Irving Wheeler MD Primary Care Provider [phone] Reason for Visit Reason Comments Specialty Refill Management Encounter Details Date Type Department Care Team Description 03/01/2021 Specialty Pharmacy Pharmacy at [facility] Mariposa [place] [phone] Social History Tobacco Use Types Packs/Day Years [...] documented as of this encounter Progress Notes Mariposa Sifuentes - 03/01/2021 11:26 AM EDT Clinical Management Plan: Refill Specialty Pharmacy Consultation; Mariposa Sifuentes Comprehensive Medication Management (CMM) Mary Kay Lisa [...] Known Allergies Medication Reconciliation Discrepancies (compared to [facility] med list) No Specialty Pharmacy Refill Questionnaire Refill Questionnaire 03/01/2021 What is the name of the specialty medication you are refilling? Imatinib Mesylate 400MG Tablets Are you taking any new medications? No Any new medical condition? No Any new allergies? No Any new side effects that are bothersome? No Please explain - What date will you need this fill by? 03/11/2021 Adherence: Any missed doses? No Patient understands no changes to current drug regimen were made. Mariposa Sifuentes 03/01/21 11:27 AM documented in this encounter Plan of Treatment Upcoming Encounters Date Type Specialty Care Team Description 02/15/2022 Office Visit Hematology and Oncology Morris Dozier MD [facility] ONCOLOGY [place], [place] [address] (Wo rk) documented as of this encounter Goals Goal Patient Goal Associated Recent Patient-Stated? Author Type Problems Progress DH Home Medication Patient No Tamera calvillo, Compliance and Facing Brandt Morin Understanding Action Plan [facility] Note: Formatting of this note might be d ifferent from the original. Remain 95% adherent to Imatinib therapy without significant neutropenia as assessed by CBC labs in clinic every 1 to 3 months documented as of this encounter Visit Diagnoses Not on filedocumented in this encounter Care Teams Patient Service Associate Relationship Specialty Start Date End Date Irving Wheeler MD PCP - General 06/23/[address] [place] [address] documented as of this encounter
--- OUTSIDE RECORDS SUMMARY | 2022-02-01 00:24 | XMS_ITS | Encounter Summary ---
:1960 Author Organization [facility] [place] [address] Care Team Providers Name Role Phone Irving Wheeler MD Primary Care Provider [phone] Reason for Referral Diagnostic Test (Routine) - New Request Specialty Diagnoses / Procedures Referred By Contact Refer red To Contact Radiology Diagnoses Gastrointestinal stromal tumor (GIST) of duodenum Morris Dozier MD Procedures CT Chest Abdomen Pelvis w Contrast (Generic) [facility] [place] [address] Referral ID Status Reason Start Expiration Visits Visits Date Date Requested Authorized [id number] New Request Specialty 11/13/2021 05/16/2023 1 1 Service Requested Encounter Details Date Type Department Care Team Description 11/13/2021 TH Visit Hematology/Oncology Morris Dozier ointestinal stromal tumor (GIST) of duodenum; [facility] Vitamin D deficiency [address] [place] [phone] ONCOLOGY [phone] [place] [address] Social History Tobacco Use Types Packs/Day Years [...] documented as of this encounter Progress Notes Morris Dozier MD - 11/13/2021 2:00 PM EDT Subjective: Patient ID: Mary Kay Gonzalez is 61 y.o. Problem List: 1. GIST, small bowel [...] of resection specimen. Molecular studies - KIT [id number] del, exon 11 C. Discussed at GI [...] to 200 mg per day on 09/08/20 Increased to 300 mg 11/03/20 Increased to 400 mg 12/01/[address] c/a/p 01/22/21 - Impression: No evidence of adenopathy or metastatic disease in the chest abdomen or pelvis CT c/a/p 08/01/21 - Impression: 1. Continued stable appearance with benign appearing right lung findings again noted and no evidence of new metastatic disease in the chest, abdomen and pelvis. There is no abnormal tissue or adenopathy in the region of the resected pancreatic head. Gallbladder surgically absent. 2. Bilateral pelvic congestion syndrome again noted. There are dilated veins on both sides of the uterus and these drain into dilated gonadal veins on each side which then drain into the bilateral renal veins. This finding is also unchanged. 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 On 02/23/20 she underwent a Whipple procedure with resection of the duodenal GIST, path report above. Restarted imatinib at 100 mg per day on 05/07/20. This has been increased to 400 mg per day. She is currently on 200 mg per day. This is a telephone encounter. She is feeling pretty well overall. She is tolerating the current dose of the imatinib well. The periorbital and LE edema is much better. She is eating well. She weight herself and says it is stable at 111-113#.. Her appetite is good but she has lost her sense of taste of smell. She was seen by ENT and that evaluation was negative. This became an issue after she recovered from symptoms. She had tested for covid (PCR test) and was negative. She says that every 6 weeks or so she pops a blood vessel in her eye. This then resolves over the course of a few days. No fever or chills. Her energy level is good. She is looking forward to traveling to [place] with her son in the near future. They will be there for about 6 weeks. Soc Hx:, lives in [place], [place] Tob - Quit in mid Etoh - none recently. 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 Fam Hx: Father - at [...] Hematological: Negative. Psychiatric/Behavioral: Negative. Objective: Physical Exam Neurological: Mental Status: She is alert. Labs: WBC/ANC - 4., Hgb/Hct - 12.2/35.6, Plts - 190,000. BUN/Cr - 16/0.6. Lytes and LFTs unremarkable. Vit D 03/09/21 - 22.8 Assessment and Plan: Mary Kay Gonzalez is 61 yo, seen for evaluation and ongoing management [...] day on 12/31/19. She was hospitalized at [facility] from 01/31 to 02/04/20. She had presented [...] resection of the duodenal GIST, path report above- 7.3 cm GIST, 2 mitoses/5 mm2, negative margins. We talked about whether to proceed with post-operative imatininb. Because she received pre-operative imatinib, the mitotic rate cannot be reliably assessed and therefore, risk category cannot be accurately assigned. The recommendation in this circumstance is generally for three years of post-operative imatinib. Obviously the prior issues with neutropenia are of concern. We decided to rechallenge with gleevec, at reduced dose. She recovered well from the surgery. She restarted imatinib at 100 mg per day on 05/07/20. She has tolerated this well and the dose was gradually increased. She was on 400 mg per day from 11/2020 to 04/2021. At that time she was feeling more poorly and the imatinib was held. When seen in 05/2021, she was feeling better, including with marked improvement in her sleep patterns (no more snoring and waking), resolution of the edema around her eyes and resolution of muscle spasms. At that point she restarted the imatinib at 200 mg per day. She is tolerating that well. The most recent restaging CT scan was done on 08/01/21. There was no evidence of disease. Her vitamin d level from 03/09/21 was low. She is taking 3000 units per day. We will recheck this aswell as iron studies wth her next visit. She will continue the imatinib at 200 mg per day and we will see her in three months with a restaging CT scan. I provided care to the patient today via telephone call. The total time associated with this visit was 15 minutes. documented in this encounter Plan of Treatment Upcoming Encounters Date Type Specialty Care Team Description 02/15/2022 Office Visit Hematology and Oncology Morris Dozier MD [facility] DR ONCOLOGY [place], [place] [address] (Wo rk) Scheduled Orders Name Type Priority Associated Diagnoses Order S chedule CBC (with Diff) Lab Routine Gastrointestinal stromal Expected: tumor (GIST) of duodenum 09/2021 (Approximate), Expires: 11/13/2022 Comprehensive metabolic Lab Routine Gastrointestinal stromal Expected: panel (non-fasting) tumor (GIST) of duode num 02/13/2022 (Approximate), Expires: 11/13/2022 CT Chest Abdomen Pelvis Imaging Routine Gastrointestinal stromal Expected: w Contrast (Generic) tumor (GIST) of duod enum 02/13/2022 (Approximate), Expires: 08/15/2022 Vitamin D, 25-Hydroxy Lab Routine Vitamin D deficienc y Expected: 02/13/2022 (Approximate), Expires: 08/15/2022 documented as of this encounter Goals Goal Patient Goal Associated Recent Patient-Stated? Author Type Problems Progress DH Home Medication Patient No Tamrea calvillo, Compliance and Facing Brandt Morin Understanding Action Plan [facility] Note: Formatting of this note might be d ifferent from the original. Remain 95% adherent to Imatinib therapy without significant neutropenia as assessed by CBC labs in clinic every 1 to 3 months documented as of this encounter Visit Diagnoses Diagnosis Gastrointestinal stromal tumor (GIST) of duodenum Vitamin D deficiency Unspecified vitamin D deficiency documented in this encounter Care Teams Nascar Pit Crew Person Relationship Specialty Start Date End Date Irving Wheeler MD PCP - General 06/23/19 [address] [place] [address] documented as of this encounter
--- OUTSIDE RECORDS SUMMARY | 2022-02-01 00:24 | XMS_ITS | Encounter Summary ---
:1960 Author Organization [facility] Address [address] [facility] [address] [place] [address] Care Team Providers Name Role Phone Irving Wheeler MD Primary Care Provider [phone] Reason for Visit Reason Comments Prior Authorization Imatinib 100mg tab x 4 Encounter Details Date Type Department Care Team Description 12/05/2020 Specialty Pharmacy Pharmacy at [facility] [place], Prior Authorization [facility] Marcela Morin (Imatinib 100mg tab x Drive [address]) [place] [address] Social History Tobacco Use Types Packs/Day Years [...] this encounter Progress Notes Marcela Cornell - 12/05/2020 10:23 AM EDT [facility], Medication Prior Authorization Patient: Mary Kay Gonzalez Patient : 1960 Patient Address: [address] [place] [address] (home) Medication Name: HEMONC IMATINIB TABLET Medication ID: Patient Location: [facility] Patient Location Comment: Subscriber Insurance: [employer] [facility] [place] Subscriber Insurance Comment: Fax: Physician: PAUL BYRD Physician Comment: Sent Via: Fax Sood: Ref/Case/PA#: [id number] Medication Strength Frequency Requested: Imatinib 4x 100mg/ by mouth daily Qty/Day Supply: 120/30 New Start: Change in Dose Diagnosis & ICD-10 Code: C49.A3 Patient Notified: No Submission Notes: Dose increase needs another Prior Authorization Marcela Cornell 12/05/20 10:28 AM Marcela Cornell - 12/05/2020 10:23 AM EDT [facility], Prior Authorization Approval Medication Name: HEMONC IMATINIB TABLET Medication ID: Approval Dates: 12/05/2020 to 06/03/2021 Insurance requirements/notes: Fill through Pharmacy Other Notes: none Case/Reference #: [id number] Approval notification Received via: Fax Copay: $0.00 Copay assistance: None Copay Notes: none Insurance mandated Pharmacy: [facility] Fill[facility] at [facility]: Yes Pharmacy staff will be reaching out to the patient to inform them of their medication's approval by their insurance. If applicable, a pharmacist will speak with the patient to offer our specialty pharmacy services and to arrange delivery of their medication. Marcela Cornell 12/05/20 3:13 PM documented in this encounter Plan of Treatment Upcoming Encounters Date Type Specialty Care Team Description 02/15/2022 Office Visit Hematology and Oncology Morris Dozier MD [facility] [address] ONCOLOGY [place], [place] [address] (Wo rk) documented as of [...] on filedocumented in this encounter Care Teams Boat Assembler Relationship Specialty Start Date End Date Irving Wheeler MD PCP - General 06/23/[address] [place] [address] documented as of this encounter
--- OUTSIDE RECORDS SUMMARY | 2022-02-01 00:24 | XMS_ITS | Encounter Summary ---
:1960 Author Organization [facility] [place] [address] Care Team Providers Name Role Phone Irving Wheeler MD Primary Care Provider [phone] Encounter Details Date Type Department Care Team Description 08/30/2021 Telephone Vascular Surgery at [facility] [place] [address] Social History Tobacco Use Types Packs/Day [...] this encounter Miscellaneous Notes Telephone Encounter - Monica Bhakta - 08/30/2021 3:20 PM EDT [id number] asking patient to call back to schedule test only: LLE Valve Incomp - Peripheral venous insufficiency, Asymptomatic varicose veins of left lower extremity Letter sent documented in this encounter Plan of Treatment Upcoming Encounters Date Type Specialty Care Team Description 02/15/2022 Office Visit Hematology and Oncology Morris Dozier MD [facility] ONCOLOGY [place], [place] [address] (Wo rk) documented as of this encounter Goals Goal Patient Goal Associated Recent Patient-Stated? Author Type Problems Progress DH Home Medication Patient No Tamera calvillo, Compliance and Facing Brandt Morin Understanding Action Plan [facility] Note: Formatting of this note might be d ifferent from the original. Remain 95% adherent to Imatinib therapy without significant neutropenia as assessed by CBC labs in clinic every 1 to 3 months documented as of this encounter Visit Diagnoses Not on filedocumented in this encounter Care Teams Clerk Typist Relationship Specialty Start Date End Date Irving Wheeler MD PCP - General 06/23/[address] [place] [address] documented as of this encounter
--- OUTSIDE RECORDS SUMMARY | 2022-02-01 00:24 | XMS_ITS | Encounter Summary ---
:1960 [place] [address] Care Team Providers Name Role Phone Irving Wheeler MD Primary Care Provider [phone] Reason for Visit Reason Comments Medication Management Encounter Details Date Type Department Care Team Description 12/07/2020 Specialty Pharmacy Pharmacy at [facility] [place] [phone] Social History Tobacco Use Types Packs/Day Years [...] encounter Progress Notes Marielena Galdamez RPH - 12/07/2020 11:12 AM EDT Clinical Management Plan: Refill Specialty Pharmacy Consultation; Marielena Galdamez RPH Comprehensive Medication Management (CMM) Mary Kay Manciay Ms. Mary Kay Gonzalez is a 60 y.o. (1960) female who refilled their specialty medication, Imatinib, without speaking to a business services sales representative from the Specialty Pharmacy. The medication was refilled on 12/07/2020 for a 30 day supply for $0 copay. Adherence: Gaps in fill history: none Was a change made to the Care Plan: yes - dose increased per clinic If yes, should the medication be held: No The specialty pharmacy staff will follow up with the patient 5-7 days prior to next refill for reminder if needed. Marielena Galdamez RPH 12/07/20 11:14 AM documented in this encounter Plan of Treatment Upcoming Encounters Date Type Specialty Care Team Description 02/15/2022 Office Visit Hematology and Oncology Morris Dozier MD [facility] DR ONCOLOGY [place], [place] [address] (Wo rk) documented as of this encounter Goals Goal Patient Goal Associated Recent Patient-Stated? Author Type Problems Progress Home Medication Patient No Tamera calvillo, Compliance and Facing Brandt Morin Understanding Action Plan [facility] Note: Formatting of this note might be d ifferent from the original. Remain 95% adherent to Imatinib therapy without significant neutropenia as assessed by CBC labs in clinic every 1 to 3 months documented as of this encounter Visit Diagnoses Not on filedocumented in this encounter Care Teams Neuroscience Specialist Relationship Specialty Start Date End Date Irving Wheeler MD PCP - General 06/23/19 [address] [place] [address] documented as of this encounter
--- OUTSIDE RECORDS SUMMARY | 2022-02-01 00:24 | XMS_ITS | Encounter Summary ---
:1960 Author Organization [facility] [place] [address] Care Team Providers Name Role Phone Irving Wheeler MD Primary Care Provider [phone] Reason for Visit Reason Comments Medication Management Medication Refill Patient Education Encounter Details Date Type Department Care Team Description 09/12/2020 Specialty Pharmacy Pharmacy [place] [facility] [place]t Grewal [facility] Medication Refill; [place], [place] [phone] Social History Tobacco Use Types Packs/Day [...] documented as of this encounter Progress Notes Brandt Grewal Angel - 09/12/2020 2:18 PM EDT Clinical Management Plan: Refill Specialty Pharmacy Consultation; Brandt Grewal [facility] Comprehensive Medication Management (CMM) Mary Kaymisty Gonzalez is a 60 y.o. (1960) female who was contacted in regard to a specialty medication refill reminder. Contact made with patient regarding imatinib. A review of the medication therapy was performed. The medication was refilled as scheduled, and all medication related questions and concerns were addressed. The specialty pharmacy staff will follow up with the patient 5-7 days prior to next refill. Was a change made to the Care Plan: yes - dose of imatinib was increased to 200 mg once daily If yes, should the medication be held: No Assessment and Recommendations: Title Type of Medication Management: chronic disease management Referred By: provider Recipient: beneficiary Provider: plan sponsor pharmacist Method of Contact: by telephone Cognitive Ability: good Cognitive Impairment Status Verified this Year: no Allergies and Drug intolerance: No Known Allergies Medication Reconciliation Discrepancies (compared to [facility] med list) -Patient states she has stopped Creon per provider recommendation Specialty Pharmacy Refill Questionnaire Refill Questionnaire 09/12/2020 What is the name of the specialty medication you are refilling? imatinib Are you taking any new medications? No Any new medical condition? No Any new allergies? No Any missed doses since your last fill? No Any new side effects that are bothersome? Yes Please explain Increased fatigue since increasing dose to 200 mg What date will you need this fill by? 09/19/2020 Adherence: Medication Adherence Patient reported X missed doses in the last month: 0 Any gaps in refill history greater than 2 weeks in the last 3 months: no Demonstrates understanding of importance of adherence: yes Informant: patient Reliability of informant: reliable Provider-estimated medication adherence level: good Reasons for non-adherence: no problems identified Adherence tools used: directed education Support network for adherence: family member, healthcare provider Confirmed plan for next specialty medication refill: delivery by pharmacy Refills needed for supportive medications: not needed Pt understands no changes to current drug regimen were made at the appointment and that [facility] is providing recommendations (summary located at top of note) for provider review and follow up. Brandt Grewal RPH 09/12/20 2:21 PM documented in this encounter Plan of Treatment Upcoming Encounters Date Type Specialty Care Team Description 02/15/2022 Office Visit Hematology and Oncology Morris Dozier MD [facility] ONCOLOGY [place], [place] [address] (Wo rk) documented as of this encounter Goals Goal Patient Goal Associated Recent Patient-Stated? Author Type Problems Progress DH Home Medication Patient No Rozols rajinder, Compliance and Facing Brandt Morin, Understanding Action Plan [facility] Note: Formatting of this note might be d ifferent from the original. Remain 95% adherent to Imatinib therapy without significant neutropenia as assessed by CBC labs in clinic every 1 to 3 months documented as of this encounter Visit Diagnoses Not on filedocumented in this encounter Care Teams Psychiatry Instructor Relationship Specialty Start Date End Date Irving Wheeler MD PCP - General 06/23/[address] [place] [address] documented as of this encounter
--- OUTSIDE RECORDS SUMMARY | 2022-02-01 00:24 | XMS_ITS | Encounter Summary ---
:1960 Author Organization [facility] [address] Care Team Providers Name Role Phone Irving Wheeler MD Primary Care Provider [phone] Encounter Details Date Type Department Care Team Description 02/15/2021 Telephone General Surgery at [facility] [place] [place] [address] Social History Tobacco Use Types Packs/Day [...] this encounter Miscellaneous Notes Telephone Encounter - Trinity Crespo - 02/15/2021 3:33 PM EDT I called Mary Kay to cancel her appt with Dr Galdamez on FridayFeb 19, but got her VM. I asked she call me back Mary Kay called back and she said the CT report has already been reviewed with her. I told her once I know when Dr Galdamez wants to see her back, I will give her a call. documented in this encounter Plan of Treatment Upcoming Encounters Date Type Specialty Care Team Description 02/15/2022 Office Visit Hematology and Oncology Morris Dozier MD [facility] ONCOLOGY [place], [place] [address] (Wo rk) documented as of this encounter Goals Goal Patient Goal Associated Recent Patient-Stated? Author Type Problems Progress DH Home Medication Patient No Tamera calvillo, Compliance and Facing Brandt Morin, Understanding Action Plan [facility] Note: Formatting of this note might be d ifferent from the original. Remain 95% adherent to Imatinib therapy without significant neutropenia as assessed by CBC labs in clinic every 1 to 3 months documented as of this encounter Visit Diagnoses Not on filedocumented in this encounter Care Teams Compensation And Benefits Advisor Relationship Specialty Start Date End Date Irving Wheeler MD PCP - General 06/23/[address] [place] [phone] documented as of this encounter
--- OUTSIDE RECORDS SUMMARY | 2022-02-01 00:24 | XMS_ITS | Encounter Summary ---
:1960 Author Organization [facility] [place] [address] Care Team Providers Name Role Phone Irving Wheeler MD Primary Care Provider [phone] Reason for Visit Reason Comments Medication Refill Encounter Details Date Type Department Care Team Description 10/23/2020 Specialty Pharmacy Pharmacy at [facility] Marielena [place] [address] Social History Tobacco Use Types Packs/Day Years [...] of this encounter Progress Notes Marielena Galdamez [facility] - 10/23/2020 11:03 AM EDT Clinical Management Plan: Refill Specialty Pharmacy Consultation; Marielena Galdamez [facility] Comprehensive Medication Management (CMM) Mary Kay Manciay Ms. Mary Kay Gonzalez is a 60 y.o. (1960) female who refilled their specialty medication, Imatinib, without speaking to a retail account representative from the Specialty Pharmacy. The medication was refilled on 10/23/2020 for a 30 day supply for $0 copay. Adherence: Gaps in fill history: none Was a change made to the Care Plan: no If yes, should the medication be held: No The specialty pharmacy staff will follow up with the patient 5-7 days prior to next refill for reminder if needed. Marielena Galdamez RPH 10/23/20 11:08 AM documented in this encounter Plan of Treatment Upcoming Encounters Date Type Specialty Care Team Description 02/15/2022 Office Visit Hematology and Oncology Morris Dozier MD [facility] DR ONCOLOGY [place], [place] [address] (Wo rk) documented as of this encounter Goals Goal Patient Goal Associated Recent Patient-Stated? Author Type Problems Progress Home Medication Patient No Tamera calvillo, Compliance and Facing Brandt Morin Understanding Action Plan [facility] Note: Formatting of this note might be d ifferent from the original. Remain 95% adherent to Imatinib therapy without significant neutropenia as assessed by CBC labs in clinic every 1 to 3 months documented as of this encounter Visit Diagnoses Not on filedocumented in this encounter Care Teams Flight Service Agent Relationship Specialty Start Date End Date Irving Wheeler MD PCP - General 06/23/19 [address] [place] [address] documented as of this encounter
--- OUTSIDE RECORDS SUMMARY | 2022-02-01 00:24 | XMS_ITS | Encounter Summary ---
:1960 Author Organization [facility] [place] [address] Care Team Providers Name Role Phone Irving Wheeler MD Primary Care Provider [phone] Encounter Details Date Type Department Care Team Description 10/06/2020 Office Visit Hematology/Oncology Nicanor Dozier MD [facility] [place] [address] Gastrointestinal stromal at [facility] Tere Beckham APRN [address] [place] [address] [place] [address] tumor (GIST) of duodenum [address] [place] [phone] Social History Tobacco Use Types Packs/Day [...] Sign Reading Time Taken Comments Blood Pressure 112/67 10/06/2020 11:02 AM EDT Pulse 66 10/06/2020 11:02 AM EDT Temperature 36.3 ??C (97.3 ??F) 10/06/2020 11:02 AM EDT Respiratory Rate 18 10/06/2020 11:02 AM EDT Oxygen Saturation 100% 10/06/2020 11:02 AM EDT Inhaled Oxygen Concentration - - Weight 51.1 kg (112 lb 9.6 oz) 10/06/2020 11:02 AM EDT Height 162.5 cm (5' 3.98) 10/06/2020 11:02 AM EDT Body Mass Index 19.34 10/06/2020 11:02 AM EDT documented in this encounter Progress Notes Tere Beckham, [employer] [facility] - 10/06/2020 10:30 AM EDT Subjective: Patient ID: Mary Kay Gonzalez [...] 12/31/19. ?? She was [place] [facility] [place]. She had [...] mg per day. 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 (See detailed history as summarized above.) She was started on neoadjuvant Imatinib 400mg Q in 12/29. She developed neutropenia, was hospitalized and subsequently had a Whipple procedure 02/23/20. She was restarted on Imatinib 100mg QD on 05/07/20 with the goal of increasing the dose to 200mg QD. She has now been taking 200mg Imatinib QD since 09/09/19 and CBCs have remained stable. Mary Kay returns to the [facility] in [facility] alone today for routine follow up and lab assessment. Mary Kay states she has been feeling okay. She is eating whatever she wants, and says gas is bearable and bloating is rare since the surgery. She just recently stopped using the Creon, and digestion seems to be going well. She did have 2-3 days of rumbling and diarrhea this week. She thinks it is possibly attributed to eating fermented oats. She generally does not have issues with diarrhea or constipation. No nausea or vomiting. 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 Mary Kay has not had any fever, chills, or other illnesses. She denies shortness of breath, chest pain or new cough. No rash or skin issues. She is fully vaccinated against COVID. As her CBC has been stable on 200mg QD, I suggested an increase to 300mg QD as the goal is 400mg po QD. Mary Kay would like to defer this for another month as she does not want to make another medicationchange at this time. No Known Allergies Current Medications ??? imatinib (GLEEVEC) chemo tablet ??? multivitamin (THERAGRAN) Tablet ??? omeprazole (PriLOSEC) 40 mg Capsule, Delayed Release(E.C.) ??? lyqfpw-gbkchnom-goctekp DR (Creon 24) 24,000-76,000 -120,000 unit Capsule, Delayed Release(E.C.) ??? ferrous sulfate (IRON ORAL) ??? cholecalciferol, Vitamin D3, 50 mcg (2,000 unit) Capsule No family history on file. Social History Tobacco Use ??? Smoking status: Former Smoker Packs/day: 0.50 Types: Cigarettes Quit date: 1994 Years since quittin.4 ??? Smokeless tobacco: Never Used ??? Tobacco comment: never vape Vaping Use ??? Vaping Use: Never used Substance Use Topics ??? Alcohol use: Not Currently Comment: none since 05/12/2019 ??? Drug use: Never Review of Systems Constitutional: Negative for activity change and appetite change. HENT: Negative for mouth sores. Eyes: Negative. Respiratory: Negative for cough and shortness of breath. Gastrointestinal: Positive for diarrhea. Negative for abdominal distention, abdominal pain, blood instool, constipation and nausea. Diarrhea this week only for 2-3 days. Intermittent gas Genitourinary: Negative. Musculoskeletal: Negative. Skin: Negative. Negative [...] normal. Thought Content: Thought content normal. BP 112/67 (Patient Position: Sitting) Pulse 66 Temp 36.3 ??C (97.3 ??F) (Temporal) Resp 18 Ht 162.5 cm (5' 3.98) Wt 51.1 kg (112 lb 9.6 oz) SpO2 100% BMI 19.34 kg/m?? LABS 10/06/20 WBC 3.6; ANC 2.20; H/H 13.1/40; PLT 231. LABS 06/16/20 WBC 3.7; ANC 2.42; H/H 12.5/ 39; PLT 243; BUN 17; CREAT 0.70; ALP 76; ALT 53; AST; BILI 0.4 FERRITIN 18 (8-252) ; IRON 59 (50-170); TIBC 328; SAT 17.9. 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 She was on neoadjuvant Imatinib, had a Whipple 02/28 and is now on maintenance Imatinib 200mg QD. Mary Kay is doing very well. She is back to work. She is tolerating the Imatinib with little toxicity and stable CBCs. Plan: Continue Imatinib at same dose, 200mg po QD. Will consider increase to 300mg po QD in 4 weeks. Repeat CBC weekly, RTC 4 weeks with labs. documented in this encounter Plan of Treatment Upcoming Encounters Date Type Specialty Care Team Description 02/15/2022 Office Visit Hematology and Oncology Morris Dozier MD [facility] ONCOLOGY [place], [place] [address] (Wo rk) documented as of this encounter Goals Goal Patient Goal Associated Recent Patient-Stated? Author Type Problems Progress DH Home Medication Patient No Tamera ky, Compliance and Facing Brandt Morin Understanding Action Plan [facility] Note: Formatting of this note might be d ifferent from the original. Remain 95% adherent to Imatinib therapy without significant neutropenia as assessed by CBC labs in clinic every 1 to 3 months documented as of this encounter Visit Diagnoses Diagnosis Gastrointestinal stromal tumor (GIST) of duodenum documented in this encounter Care Teams Wholesale Parts Salesperson Relationship Specialty Start Date End Date Irving Wheelre MD PCP - General 06/23/19 [address] [place] [address] documented as of this encounter
--- OUTSIDE RECORDS SUMMARY | 2022-02-01 00:24 | XMS_ITS | Encounter Summary ---
:1960 Author Organization [facility] [address] Care Team Providers Name Role Phone Irving Wheeler MD Primary Care Provider [phone] Reason for Visit Reason Comments Specialty Refill Management Encounter Details Date Type Department Care Team Description 10/22/2021 Specialty Pharmacy Pharmacy at [facility] Casandra Hunt Specialty Refill [facility] [place] [phone] Social History Tobacco Use Types Packs/Day Years [...] documented as of this encounter Progress Notes Casandra Hunt CPHT - 10/22/2021 4:28 PM EDT Clinical Management Plan: Refill Specialty Pharmacy Consultation; Casandra Hunt CPHT Comprehensive Medication Management (CMM) Mary Kay Gonzalez Ms. Mary Kay Gonzalez is a 61 [...] Known Allergies Medication Reconciliation Discrepancies (compared to [facility] med list) No Specialty Pharmacy Refill Questionnaire Refill Questionnaire 10/22/2021 What is the name of the specialty medication you are refilling? Imatinib Are you taking any new medications? No Any new medical condition? No Any new allergies? No Any new side effects that are bothersome? No Please explain - What date will you need this fill by? 10/26/2021 Adherence: Any missed doses? No Patient understands no changes to current drug regimen were made. Casandra Hunt CPHT 10/22/21 4:28 PM documented in this encounter Plan of Treatment Upcoming Encounters Date Type Specialty Care Team Description 02/15/2022 Office Visit Hematology and Oncology Morris Dozier MD [facility] DR ONCOLOGY [place], [place] [address] (Wo ) documented as of this encounter Goals Goal Patient Goal Associated Recent Patient-Stated? Author Type Problems Progress DH Home Medication Patient No Tamera calvillo, Compliance and Facing Brandt Morin Understanding Action Plan [facility] Note: Formatting of this note might be d ifferent from the original. Remain 95% adherent to Imatinib therapy without significant neutropenia as assessed by CBC labs in clinic every 1 to 3 months documented as of this encounter Visit Diagnoses Not on filedocumented in this encounter Care Teams Logistics Support Relationship Specialty Start Date End Date Irving Wheeler MD PCP - General 06/23/[address] [place] [id number] documented as of this encounter
--- OUTSIDE RECORDS SUMMARY | 2022-02-01 00:24 | XMS_ITS | Encounter Summary ---
:1960 Author Organization [facility] [place] [address] Care Team Providers Name Role Phone Irving Wheeler MD Primary Care Provider [phone] Reason for Visit Reason Onset Date Comments Labs Only 09/15/2020 Lab tracking Encounter Details Date Type Department Care Team Description 09/15/2020 Telephone Hematology/Oncology at Katherin oCrona, Labs Only (Lab [facility] RN tracking) [address] [place] [phone] Social History Tobacco Use Types Packs/Day [...] encounter Miscellaneous Notes Telephone Encounter - Katherin Corona, RN - 09/15/2020 9:30 PM EDT LAB TRACKING Jen Farmer [id number] 1960 ?? 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 LABS ORDERED: cbc diff ?? MEDICATIONS: Imatinib 200mg daily Assessment/Plan: 09/08 imatanib increased to 200mg daily. We will now check CBC every week at [facility]. Called to review with Jen, she is in agreement f to get labs in 1 week. Results for JEN FARMER ( ) as of 09/15/2020 21:30 Ref. Range 08/25/2020 00:00 09/08/2020 00:00 09/15/2020 00:00 WBC Unknown 6.0 3.2 (L) 3.8 Hemoglobin Unknown 12.8 12.5 13.2 Hematocrit Unknown 38.0 40.0 Platelets Unknown 232 245 249 Neutr Abs (ANC) Unknown 3.86 2.12 2.4 documented in this encounter Plan of Treatment Upcoming Encounters Date Type Specialty Care Team Description 02/15/2022 Office Visit Hematology and Oncology Morris Dozier MD [facility] DR ONCOLOGY [place] [address] (Wo rk) documented as of this encounter [...] Diagnosis Comme nts CBC (WITH DIFF) Routine 09/15/2020 Results for this procedure are in the resu lts section. documented in this encounter Results CBC (with Diff) (09/15/2020) P athologist Signature WBC 3.8 Hemoglobin 13.2 Hematocrit 40.0 Platelets 249 Neutr Abs (ANC) 2.4 Specimen (Source) Anatomical Location Collection Method / Collectio n Time Received Time / Laterality Volume Blood 09/15/2020 Morris Dozier MD HEMATOLOGY ORDERABLES documented in this encounter Visit Diagnoses Not on filedocumented in this encounter Care Teams Salon Supervisor Relationship Specialty Start Date End Date Irving Wheeler MD PCP - General 06/23/19 [address] [place] [address] documented as of this encounter
--- OUTSIDE RECORDS SUMMARY | 2022-02-01 00:24 | XMS_ITS | Encounter Summary ---
:1960 Author Organization [facility] [place] [address] Care Team Providers Name Role Phone Irving Wheeler MD Primary Care Provider [phone] Reason for Visit Reason Onset Date Comments Labs Only 11/17/2020 lab tracking Encounter Details Date Type Department Care Team Description 11/17/2020 Telephone Hematology Oncology at Jailene Lomax, Labs Only (lab [facility] RN tracking) [address] [place] [phone] Social History Tobacco Use Types Packs/Day [...] Telephone Encounter - Jailene Lomax, RN - 11/17/2020 1:05 PM EDT LAB TRACKING Jen Farmer [id number] 1960 ?? 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 LABS ORDERED: cbc diff q2wks, CBC & CMP before MD visit. ?? MEDICATIONS: Imatinib 300mg daily as of 11/03/20 Assessment/Plan: Dr. Dozier given labs to review. Continue Imatanib 300mg daily. FUV in clinic with labs 12/01. She will start going to [facility] for labs as she is going to move to [place]. Results for JEN FARMER ( ) as of 11/17/2020 13:12 10/13/2020 00:00 10/20/2020 00:00 11/03/2020 00:00 11/17/2020 00:00 WBC 4.0 4.1 4 4.1 RBC 4.01 Hemoglobin 12.8 12.2 12.6 12.6 Hematocrit 37.0 38.0 38.0 Platelets 248 229 246 230 Neutr Abs (ANC) 2.33 2.49 2.16 2.29 BUN 12 Creatinine 0.41 documented in this encounter Plan of Treatment Upcoming Encounters Date Type Specialty Care Team Description 02/15/2022 Office Visit Hematology and Oncology Morris Dozier MD [facility] ER DR ONCOLOGY [place], [place] [address] (Wo rk) documented as of this encounter Goals Goal Patient Goal Associated Recent Patient-Stated? Author Type Problems Progress DH Home Medication Patient No Rozols ky, Compliance and Facing Brandt Morin Understanding Action Plan [facility] Note: Formatting of this note might be d ifferent from the original. Remain 95% adherent to Imatinib therapy without significant neutropenia as assessed by CBC labs in clinic every 1 to 3 months documented as of this encounter Procedures Procedure Name Priority Date/Time Associated Diagnosis Comme nts CBC (WITH DIFF) Routine 11/17/2020 Results for this procedure are in the resu lts section. documented in this encounter Results CBC (with Diff) (11/17/2020) P athologist Signature WBC 4.1 Hemoglobin 12.6 Hematocrit 38.0 Platelets 230 Neutr Abs (ANC) 2.29 Specimen (Source) Anatomical Location Collection Method / Collectio n Time Received Time / Laterality Volume Blood 11/17/2020 Morris Dozier MD HEMATOLOGY ORDERABLES documented in this encounter Visit Diagnoses Not on filedocumented in this encounter Care Teams Program Advocate Relationship Specialty Start Date End Date Irving Wheeler MD PCP - General 06/23/19 [address] [place] [address] documented as of this encounter
--- OUTSIDE RECORDS SUMMARY | 2022-02-01 00:24 | XMS_ITS | Encounter Summary ---
:1960 Author Organization [facility] [place] [address] Care Team Providers Name Role Phone Irving Wheeler MD Primary Care Provider [phone] Encounter Details Date Type Department Care Team Description 04/27/2021 Office Visit Hematology/Oncology Nicanor Dozier MD [facility] [place] [address] Gastrointestinal stromal tumor (GIST) of duodenum; at [facility] Tere Beckham APRN [address] [place] [address] [place] [address] Other fatigue; [address] Macrocytic anemia; [place], [place] Vitamin D d eficiency [id number] Social History Tobacco Use Types Packs/Day Years [...] encounter Progress Notes Morris Dozier MD - 04/27/2021 10:30 AM EST Subjective: Patient ID: Jen Farmer is 60 [...] of resection specimen. 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 Discussed at GI [...] abuts but does not invade the pancreas. Phyllis. Resumed imatinib at 100 mg per day on 05/07/20. Increased dose to 200 mg per day on 09/08/20 Increased to 300 mg 11/03/20 Increased to 400 mg 12/01/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 On 02/23/20 she underwent a Whipple procedure with resection of the duodenal GIST, path report above. Restarted imatinib at 100 mg per day on 05/07/20. This has been increased to 400 mg per day. Today's visit was converted to a telephone visit because she has a covid 19 test pending. This was done yesterday because of symptoms of a head cold. She has sinus congestion and has started to developa cough. No fever. She says her sense of taste and smell is somewhat compromised but is not absent and she thinks is related to the congestion. She has otherwise felt ok. 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 She feels a bit run down. She has been without a permanent place to live until she moved into an apartment recently. She is eating well and her weight is in the same range. She has tolerated the imatinib well at 400 mg per day. No fevers. She stopped the creon in late August and is doing fine off of that. No SOB or cough. No nausea or vomiting andno abd pain or discomfort. She mentions that she has some preiorbital edema and has had some thinning of the hair. Soc Hx:, lives in [place], [place] Tob - Quit in mid Etoh - none recently. 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 Fam Hx: Father - at [...] Neurological: Mental Status: She is alert. Labs: (01/26/21): WBC/ANC - 4., Hgb/Hct - 11.8/34.9, Plts - 193,000. BUN/Cr - 11/0.7. Lytes andLFTs unremarkable. Results for JEN FARMER ( ) as [...] Unknown 1.95 2.2 2.33 2.49 2.16 ?? Results for JEN FARMER ( ) as of 12/15/2020 09:02 ?? Ref. Range 11/03/2020 00:00 11/17/2020 00:00 12/01/2020 00:00 12/14/2020 00:00 WBC Unknown 4 4.1 4.75 4.94 Hemoglobin Unknown 12.6 12.6 12.8 12.2 Hematocrit Unknown 38.0 38.0 38.0 35.4 Platelets Unknown 246 230 205 201 Neutr Abs (ANC) Unknown 2.16 2.29 2.97 2.58 BUN Unknown ? 11 ?? Creatinine Unknown ? 0.6 0.6 (04/27/21): WBC/ANC - 3.12/1789, Hgb/Hct - 12.1/36.4, Plts - 183,000. BUN/Cr - 11/0.7. Glucose - 123. Lytes and LFTs o/w unremarkable. Vit D 03/09/21 - 22.8 (11/03/20) - CBC above. BUN/Cr - 12/0.57. [...] Folate - 31.3 Vit D - 17.2 CT personally reviewed, report above Assessment and Plan: Jen Farmer is 59 [...] day on 12/31/19. She was [place] [facility] [place]. She had presented [...] has tolerated this well and the dose has been increased. She has been on 400 mg per day since 11/2020. A restaging CT scan was done on 01/22/21. There was no evidence of disease. She has tolerated the current dose of imatinib well. The WBC is a little lower but ok. She has not been feeling well and has a covid test pending. If that is positive or she does not feel better soon, I asked her to f/u with her PCP. I asked her to hold the imatinib until she feels better and then resume at 400 mg per day. Because of her hair thinning and the potential for imatinib to cause thyroid dysfunction, I will add a TSH to today's labs. Her vitamin d level from 03/09/21 was low. She is taking 10,000 units per day. We will recheck this as well as iron studies wth her next visit. I will plan to see her in another month or so. We will plan the next CT in July, 6 months from the last one. Note: She has had both covid vaccine injections. documented in this encounter Plan of Treatment Upcoming Encounters Date Type Specialty Care Team Description 02/15/2022 Office Visit Hematology and Oncology Morris Dozier MD [facility] ONCOLOGY [place], [place] [address] (Wo rk) Scheduled Orders Name Type Priority Associated Diagnoses Order S chedule CBC (with Diff) Lab Routine Gastrointestinal stromal Expected: tumor (GIST) of duodenum (Approximate), Expires: 2021 Comprehensive metabolic Lab Routine Gastrointestinal stromal Expected: panel (non-fasting) tumor (GIST) of duode num 06/01/2021 (Approximate), Expires: 2021 documented as of this encounter Goals Goal Patient Goal Associated Recent Patient-Stated? Author Type Problems Progress DH Home Medication Patient No Tamera calvillo, Compliance and Facing Brandt Morin, Understanding Action Plan [facility] Note: Formatting of this note might be d ifferent from the original. Remain 95% adherent to Imatinib therapy without significant neutropenia as assessed by CBC labs in clinic every 1 to 3 months documented as of this encounter Visit Diagnoses Diagnosis Gastrointestinal stromal tumor (GIST) of duodenum Other fatigue Macrocytic anemia Unspecified deficiency anemia Vitamin D deficiency Unspecified vitamin D deficiency documented in this encounter Care Teams Vocational Evaluator Relationship Specialty Start Date End Date Irving Wheeler MD PCP - General 06/23/[address] [place] [address] documented as of this encounter
--- OUTSIDE RECORDS SUMMARY | 2022-02-01 00:24 | XMS_ITS | Encounter Summary ---
:1960 Author Organization [facility] [place] [address] Care Team Providers Name Role Phone Irving Wheeler MD Primary Care Provider [phone] Reason for Visit Reason Comments Medication Refill Encounter Details Date Type Department Care Team Description 08/17/2021 Specialty Pharmacy Pharmacy at [facility] [place], Medication Refill [facility] [place] [address] Social History Tobacco Use Types Packs/Day Years [...] documented as of this encounter Progress Notes Laina Crockett [facility] - 08/17/2021 4:41 PM EDT Clinical Management Plan: Refill Specialty Pharmacy Consultation; Laina Crockett [facility] Comprehensive Medication Management (CMM) Mary Kay Lisa Ms. Mary Kay Gonzalez is a 61 [...] Known Allergies Medication Reconciliation Discrepancies (compared to [facility] med list) No Specialty Pharmacy Refill Questionnaire Refill Questionnaire 08/20/2021 What is the name of the specialty medication you are refilling? imatinib Are you taking any new medications? No Any new medical condition? No Any new allergies? No Any new side effects that are bothersome? No Please explain - What date will you need this fill by? 08/24/2021 Adherence: Any missed doses? No Patient understands no changes to current drug regimen were made. Laina Crockett RPH 08/20/21 4:41 PM documented in this encounter Plan of Treatment Upcoming Encounters Date Type Specialty Care Team Description 02/15/2022 Office Visit Hematology and Oncology Morris Dozier MD [facility] DR ONCOLOGY [place] [address] (Wo rk) documented as of this encounter Goals Goal Patient Goal Associated Recent Patient-Stated? Author Type Problems Progress DH Home Medication Patient No Tamera calvillo, Compliance and Facing Brandt Morin Understanding Action Plan [facility] Note: Formatting of this note might be d ifferent from the original. Remain 95% adherent to Imatinib therapy without significant neutropenia as assessed by CBC labs in clinic every 1 to 3 months documented as of this encounter Visit Diagnoses Not on filedocumented in this encounter Care Teams Clinical Technician Relationship Specialty Start Date End Date Irving Wheeler MD PCP - General 06/23/[address] [place] [address] documented as of this encounter
--- OUTSIDE RECORDS SUMMARY | 2022-02-01 00:24 | XMS_ITS | Encounter Summary ---
:1960 Author Organization [facility] [place] [address] Care Team Providers Name Role Phone Irving Wheeler MD Primary Care Provider [phone] Encounter Details Date Type Department Care Team Description 11/03/2020 Telephone Hematology/Oncology at Katherin Corona RN [address] [phone] Social History Tobacco Use [...] Telephone Encounter - Katherin Corona RN - 11/03/2020 1:51 PM EDT LAB TRACKING Jen Farmer [id number] 1960 ?? 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 LABS ORDERED: cbc diff weekly ?? MEDICATIONS: Imatinib 300mg daily as of 11/03/20 Assessment/Plan: Seen by Dr Dozier in clinic today Imatanib increased to 300mg daily. CBC in 2 weeks- 11/17. FUV in clinic with labs 12/01 Results for JEN FARMER ( ) as of 11/03/2020 13:51 Ref. Range 10/13/2020 00:00 10/20/2020 00:00 11/03/2020 00:00 WBC Unknown 4.0 4.1 4 RBC Unknown 4.01 Hemoglobin Unknown 12.8 12.2 12.6 Hematocrit Unknown 37.0 38.0 Platelets Unknown 248 229 246 Neutr Abs (ANC) Unknown 2.33 2.49 2.16 documented in this encounter Plan of Treatment Upcoming Encounters Date Type Specialty Care Team Description 02/15/2022 Office Visit Hematology and Oncology Morris Dozier MD [facility] ER DR ONCOLOGY [place], [place] [address] (Wo rk) documented as of this encounter Goals Goal Patient Goal Associated Recent Patient-Stated? Author Type Problems Progress DH Home Medication Patient No Rozoberenice calvillo, Compliance and Facing Brandt Morin Understanding Action Plan [facility] Note: Formatting of this note might be d ifferent from the original. Remain 95% adherent to Imatinib therapy without significant neutropenia as assessed by CBC labs in clinic every 1 to 3 months documented as of this encounter Procedures Procedure Name Priority Date/Time Associated Diagnosis Comme nts CBC (WITH DIFF) Routine 11/03/2020 Results for this procedure are in the resu lts section. documented in this encounter Results CBC (with Diff) (11/03/2020) P athologist Signature WBC 4 Hemoglobin 12.6 Hematocrit 38.0 Platelets 246 Neutr Abs (ANC) 2.16 Specimen (Source) Anatomical Location Collection Method / Collectio n Time Received Time / Laterality Volume Blood 11/03/2020 Morris Dozier MD HEMATOLOGY ORDERABLES documented in this encounter Visit Diagnoses Not on filedocumented in this encounter Care Teams Front Office Agent Relationship Specialty Start Date End Date Irving Wheeler MD PCP - General 06/23/19 [address] [place] [address] documented as of this encounter
--- OUTSIDE RECORDS SUMMARY | 2022-02-01 00:24 | XMS_ITS | Encounter Summary ---
:1960 Author Organization [facility] [place] [address] Care Team Providers Name Role Phone Irving Wheeler MD Primary Care Provider [phone] Reason for Visit Reason Onset Date Comments Labs Only 10/13/2020 lab tracking Encounter Details Date Type Department Care Team Description 10/13/2020 Telephone Hematology/Oncology at Katherin Corona, Labs Only (lab [facility] RN tracking) [address] [place] [phone] Social History Tobacco Use Types Packs/Day [...] Telephone Encounter - Katherin Corona, RN - 10/13/2020 4:06 PM EDT LAB TRACKING Jen Farmer [id number] 1960 ?? 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 LABS ORDERED: cbc diff weekly ?? MEDICATIONS: Imatinib 200mg daily Assessment/Plan: Continue imatanib 200mg daily. CBC every week at [facility]. Will discuss next dose increase at next visit end of October. Reviewed labs with Bulmaro Beckham APRN- continue as planned. Results for JEN FARMER ( ) as of 10/13/2020 16:09 Ref. Range 09/29/2020 00:00 10/06/2020 00:00 10/13/2020 00:00 WBC Unknown 3.5 3.6 4.0 RBC Unknown 4.01 Hemoglobin Unknown 12.5 13.1 12.8 Hematocrit Unknown 38.0 40.0 39 Platelets Unknown 209 231 248 Neutr Abs (ANC) Unknown 1.95 2.2 2.33 documented in this encounter Plan of Treatment Upcoming Encounters Date Type Specialty Care Team Description 02/15/2022 Office Visit Hematology and Oncology Morris Dozier MD [facility] DR ONCOLOGY [place], [place] [address] (Wo rk) documented as of [...] Diagnosis Comme nts CBC (WITH DIFF) Routine 10/13/2020 Results for this procedure are in the resu lts section. documented in this encounter Results CBC (with Diff) (10/13/2020) P athologist Signature WBC 4.0 RBC 4.01 Hemoglobin 12.8 Platelets 248 Neutr Abs (ANC) 2.33 Specimen (Source) Anatomical Location Collection Method / Collectio n Time Received Time / Laterality Volume Blood 10/13/2020 Morris Dozier MD HEMATOLOGY ORDERABLES documented in this encounter Visit Diagnoses Not on filedocumented in this encounter Care Teams Inspector Insulation Relationship Specialty Start Date End Date Irving Wheeler MD PCP - General 06/23/19 [address] [place] [address] documented as of this encounter
--- OUTSIDE RECORDS SUMMARY | 2022-02-01 00:24 | XMS_ITS | Encounter Summary ---
:1960 Author Organization [facility] [place] [address] Care Team Providers Name Role Phone Irving Wheeler MD Primary Care Provider [phone] Reason for Visit Reason Comments Medication Refill Encounter Details Date Type Department Care Team Description 09/12/2021 Specialty Pharmacy Pharmacy at [facility] Dee Carrizales, [place] [phone] Social History Tobacco Use Types Packs/Day Years [...] documented as of this encounter Progress Notes Dee Carrizales [facility] - 09/12/2021 9:20 AM EDT Clinical Management Plan: Refill Specialty Pharmacy Consultation; Dee Carrizales [facility] Comprehensive Medication Management (CMM) Mary [...] Known Allergies Medication Reconciliation Discrepancies (compared to [facility] med list) No Specialty Pharmacy Refill Questionnaire Refill Questionnaire 09/12/2021 What is the name of the specialty medication you are refilling? Imatinib Are you taking any new medications? No Any new medical condition? No Any new allergies? No Any new side effects that are bothersome? No Please explain - What date will you need this fill by? 09/26/2021 Adherence: Any missed doses? No Patient understands no changes to current drug regimen were made. Dee Carrizales RPH 09/12/21 9:21 AM documented in this encounter Plan of Treatment Upcoming Encounters Date Type Specialty Care Team Description 02/15/2022 Office Visit Hematology and Oncology Morris Dozier MD [facility] DR ONCOLOGY [place] [address] (Wo rk) documented as of this encounter [...] on filedocumented in this encounter Care Teams Fiber Machine Tender Relationship Specialty Start Date End Date Irving Wheeler MD PCP - General 06/23/[address] [place] [address] documented as of this encounter
--- OUTSIDE RECORDS SUMMARY | 2022-02-01 00:24 | XMS_ITS | Encounter Summary ---
:1960 Author Organization [facility] [place] [address] Care Team Providers Name Role Phone Irving Wheeler MD Primary Care Provider [phone] Encounter Details Date Type Department Care Team Description 12/15/2020 Telephone Hematology/Oncology at Claudia Blanco RN [address] [phone] Social History Tobacco Use Types Packs/Day [...] Telephone Encounter - Claudia Khalil RN - 12/15/2020 9:02 AM EDT LAB TRACKING Jen Farmer [id number] 1960 ?? 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 LABS ORDERED: cbc diff q2wks, CBC & CMP before MD visit. ?? MEDICATIONS: Imatinib 400 mg daily as of 12/01/20 Assessment/Plan: Labs sent to Dr. Dozier and Bulmaro Beckham REACTOR FUELING SUPERVISOR to review. Pt on 400 mg Imatinib daily.Pt due back in clinic with labs on . Left message for pt about this, she will call with questions or concerns. ADD: no more lab tracking needed at this time, pt will get labs a days she sees providers. Results for JEN FARMER ( ) as of 12/15/2020 09:02 Ref. Range 11/03/2020 00:00 11/17/2020 00:00 12/01/2020 00:00 12/14/2020 00:00 WBC Unknown 4 4.1 4.75 4.94 Hemoglobin Unknown 12.6 12.6 12.8 12.2 Hematocrit Unknown 38.0 38.0 38.0 35.4 Platelets Unknown 246 230 205 201 Neutr Abs (ANC) Unknown 2.16 2.29 2.97 2.58 BUN Unknown 11 Creatinine Unknown 0.6 0.6 documented in this encounter Plan of Treatment Upcoming Encounters Date Type Specialty Care Team Description 02/15/2022 Office Visit Hematology and Oncology Morris Dozier MD [facility] ER DR ONCOLOGY [place], [place] [address] (Wo rk) documented as of this encounter Goals Goal Patient Goal Associated Recent Patient-Stated? Author Type Problems Progress DH Home Medication Patient No Tamera ky, Compliance and Facing Brandt Morin Understanding Action Plan [facility] Note: Formatting of this note might be d ifferent from the original. Remain 95% adherent to Imatinib therapy without significant neutropenia as assessed by CBC labs in clinic every 1 to 3 months documented as of this encounter Procedures Procedure Name Priority Date/Time Associated Diagnosis Comme nts CBC (WITH DIFF) Routine 12/14/2020 Results for this procedure are in the resu lts section. documented in this encounter Results CBC (with Diff) (12/14/2020) P athologist Signature WBC 4.94 Hemoglobin 12.2 Hematocrit 35.4 Platelets 201 Neutr Abs (ANC) 2.58 Creatinine 0.6 Specimen (Source) Anatomical Location Collection Method / Collectio n Time Received Time / Laterality Volume Blood 12/14/2020 Historical Provider HEMATOLOGY ORDERABLES documented in this encounter Visit Diagnoses Not on filedocumented in this encounter Care Teams Unit Secretary Relationship Specialty Start Date End Date Irving Wheeler MD PCP - General 06/23/[address] [place] [address] documented as of this encounter
--- OUTSIDE RECORDS SUMMARY | 2022-02-01 00:25 | XMS_ITS | Encounter Summary ---
:1960 Author Organization [place] [address] Care Team Providers Name Role Phone Irving Wheeler MD Primary Care Provider [phone] Encounter Details Date Type Department Care Team Description 09/04/2020 Orders Only General Surgery at [facility] P ancreatic insufficiency; [facility] Other iron deficiency anemia [facility] [address] [place] [facility] [address] [place] [address] [phone] (Wo rk) Social History Tobacco Use Types [...] Visit Hematology and Oncology Morris Dozier MD [facility] [address] [place], [place] [address] (Wo rk) documented as of this encounter Goals Goal Patient Goal Associated Recent Patient-Stated? Author Type Problems Progress DH Home Medication Patient No Tamera calvillo, Compliance and Facing Brandt Morin, Understanding Action Plan [facility] Note: Formatting of this note might be d ifferent from the original. Remain 95% adherent to Imatinib therapy without significant neutropenia as assessed by CBC labs in clinic every 1 to 3 months documented as of this encounter Visit Diagnoses Diagnosis Pancreatic insufficiency Other specified disease of pancreas Other iron deficiency anemia documented in this encounter Care Teams Business Administration Program Chair Relationship Specialty Start Date End Date Irving Wheeler MD PCP - General 06/23/[address] [place] [address] documented as of this encounter
--- OUTSIDE RECORDS SUMMARY | 2022-02-01 00:25 | XMS_ITS | Encounter Summary ---
:1960 Author Organization [facility] [place] [address] Care Team Providers Name Role Phone Irving Wheeler MD Primary Care Provider [phone] Encounter Details Date Type Department Care Team Description 04/18/2020 Laboratory Lab 3L Camilla Malignant Appointment [facility] tumor ([place]) [place] [id number] Social History Tobacco Use Types Packs/Day Years [...] Hematology and Oncology Morris Dozier MD [facility] ONCOLOGY [place], [place] [address] (Wo rk) documented as of this encounter Goals Goal Patient Goal Associated Recent Patient-Stated? Author Type Problems Progress DH Home Medication Patient No Tamera calvillo, Compliance and Facing Brandt Morin, Understanding Action Plan [facility] Note: Formatting of this note might be d ifferent from the original. Remain 95% adherent to Imatinib therapy without significant neutropenia as assessed by CBC labs in clinic every 1 to 3 months documented as of this encounter Procedures Procedure Name Priority Date/Time Associated Diagnosis Comme nts HEMOGRAM Routine 04/18/2020 1:45 Malignant Results for this PM EST gastrointestinal procedure a re in stromal tumor (GIST) of the results small intestine section. DIFFERENTIAL, Routine 04/18/2020 1:45 Malignant Results for this AUTOMATED PM EST gastrointestinal procedure a re in stromal tumor (GIST) of the results small intestine section. HC CBC,PLT & AUTO Routine 04/18/2020 1:45 Malignant DIFF PM EST gastrointestinal stromal tumor (GIST) of small intestine HC PREALBUMIN, SERUM Routine 04/18/2020 1:45 Malignant Resu lts for this PM EST gastrointestinal procedure a re in stromal tumor (GIST) of the results small intestine section. COMPREHENSIVE Routine 04/18/2020 1:45 Malignant Results for this METABOLIC PANEL PM EST gastrointestinal procedur e are in (NON-FASTING) stromal tumor (GIST) of the results small intestine section. documented in this encounter Results Differential, Automated (04/18/2020 1:45 PM EST) athologist Signature Neutrophils % 58.3 % [facility] Neutr Abs (ANC) 2.86 1.70 - [facility] 6.10 [facility] x10(3)/[facility] LABORATORY Lymphocytes % 33.4 % [facility] Lymphocytes Abs 1.6 0.9 - 3.2 [facility] x10(3)/[facility] LABORATORY Monocytes % 6.9 % [facility] Monocyte Abs 0.3 0.3 - 0.9 [facility] x10(3)/[facility] LABORATORY Eosinophils % 0.8 % [facility] Eosinophils Abs 0.0 0.0 - 0.4 [facility] x10(3)/[facility] LABORATORY Basophils % 0.4 % [facility] Basophils Abs 0.0 0.0 - 0.1 [facility] x10(3)/[facility] LABORATORY Immature Gran % 0.20 % [facility] Comment: Immature granulocytes(IG's)percentage an d absolute count will include metamyelocytes, myelocytes, and promyelo cytes. Blood smears from CBCs yielding IG's will be scanned manually for concor dance. If this scan disagrees with the automated IG or if promyelocytes are not ed, a manual differential will be performed. Teresa Gran Abs 0.01 0.00 - 0.04 x10(3)/[facility] Specimen Anatomical Collection Method Collection Time Receive d Time (Source) Location / / Volume Laterality Blood specimen 04/18/2020 1:45 PM 020 1:57 (specimen) EST PM EST Resulting Agency Comment Spec In Lab Britany Villanueva APRN HEMATOLOGY ORDERABLES Performing Organization Address City/State/[place] [address] (ABNORMAL) Hemogram (04/18/2020 1:45 PM EST) Analysis Performed At Patho logist Time Signature WBC 4.9 4.0 - 9.5 [facility] x10(3)/[facility] LABORATORY RBC 3.56 (L) 4.00 - [facility] 5.21 [facility] x10(6)/[facility] LABORATORY Hemoglobin 10.3 (L) 11.7 - [facility] 15.5 gm/dL [facility] LABORATORY Hematocrit 33.3 (L) 35.7 - [facility] 45.8 % [facility] LAB[facility] MCV 93.5 82.6 - [facility] 94.4 [facility] LABORATORY MCH 28.9 27.1 - [place] 32.0 pg [facility] LABOR[facility]ORY MCHC 30.9 (L) 31.7 - [facility] 35.0 gm/dL [facility] LAB[facility]ORY Platelets 302 145 - 357 [facility] x10(3)/[facility] LABORATORY RDWSD 56.3 (H) 37.0 - [facility] DONNA 46.0 [facility] RDWCV 16.4 (H) 11.5 - [facility] DONNA 14.1 % [facility] LABORATORY MPV 9.2 7.6 - 12.9 [facility] LABORATORY nRBC % Auto 0.0 % [facility] nRBC Abs Auto 0.000 0.000 - [facility] 0.000 [facility] x10(3)/[facility] LABORATORY Specimen Anatomical Collection Method Collection Time Receive d Time (Source) Location / / Volume Laterality Blood specimen 04/18/2020 1:45 PM 020 1:57 (specimen) EST PM EST Resulting Agency Comment Spec In Lab Britany Villanueva APRN HEMATOLOGY ORDERABLES Performing Organization Address City/State/[place] [address] (ABNORMAL) Comprehensive metabolic panel (non-fasting) (04/18/2020 1:45 PM EST) P athologist Signature Glucose Lvl 74 65 - 199 [facility] mg/dL [facility]ORY Comment: Diabetes: >=200 mg/dL plus symp toms BUN 17 8 - 18 mg/dL [facility] Creatinine 0.41 (L) 0.70 - 1.20 mg/dL [facility] Sodium 141 135 - 145 mmol/L [facility] Potassium 4.2 3.5 - 5.0 mmol/L [facility] Comment: Please note: ??Patients with WBC >100,00 0 may have falsely elevated Potassium levels. ??For accurate Potassium quantif ication in these patients send serum separator tube (gold top) for subsequent determinations. ??Contact the Clinical Chemistry Laboratory if there are any qu estions. Chloride 105 98 - 107 mmol/L [facility] CO2 27 22 - 31 mmol/L [facility] Anion Gap 9 5 - 15 mmol/L [facility] Calcium 9.0 8.5 - 10.5 mg/dL [facility] Total Protein 6.3 6.1 - 8.0 gm/dL [facility] Albumin 4.3 3.2 - 5.2 gm/dL [facility] AST 24 0 - 30 unit/L [facility] ALT 36 (H) 0 - 30 unit/L [facility] Alk Phos 69 35 - 105 unit/L [facility] Total Bilirubin 0.4 0.2 - 1.3 mg/dL [facility] Estimated GFR 115 >=60 mL/min/1.73 m?? [facility] Comment: This patient? s estimated glomerular filtration rate (eGFR) is between 115 mL/min/1.73 m2 (patients with less muscl e mass) and 133 mL/min/1.73 m2 (patients with more muscle mass) as dete rmined by the CKD-EPI equation. Assessment of eGFR is not appropriate wh en creatinine concentrations are rapidly changing. For clinical decisions where creatinine clearance will affect therapy, a 24-hour urine creatinine shannon josué may be advised. Assignment of CKD stage 1 ? 5 for patients with an eGFR near the transition point between stages may be based on cli nical assessment of muscle mass and symptoms in addition to eGFR. Specimen Anatomical Collection Method Collection Time Receive d Time (Source) Location / / Volume Laterality Blood specimen 04/18/2020 1:45 PM 020 1:57 (specimen) EST PM EST Resulting Agency Comment Spec In Lab Britany Villanueva APRN CHEMISTRY ORDERABLES Performing Organization Address City/[facility]/[place] [address] Prealbumin (04/18/2020 1:45 PM EST) athologist Signature Prealbumin 27 20 - 40 [facility] mg/dL [facility] LABOR[facility]ORY Comment: Prealbumin levels are generally lower in the pediatric population; adult concentrations are usually attained near puberty. 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
--- OUTSIDE RECORDS SUMMARY | 2022-02-01 00:25 | XMS_ITS | Encounter Summary ---
:1960 Author Organization [facility] [place] [address] Care Team Providers Name Role Phone Irving Wheeler MD Primary Care Provider [phone] Reason for Visit Reason Comments Medication Management Medication Refill Encounter Details Date Type Department Care Team Description 06/19/2020 Specialty Pharmacy Pharmacy at [facility] Antony Valle [facility] P, [facility] Managemen t; [place] [phone] Social History Tobacco Use Types Packs/Day Years [...] Visit Hematology and Oncology Morris Dozier MD [facility] [place], [place] [address] (Wo rk) documented as of [...] on filedocumented in this encounter Care Teams Certified Flight Instructor Relationship Specialty Start Date End Date Irving Wheeler MD PCP - General 06/23/[address] [place] [address] documented as of this encounter
--- OUTSIDE RECORDS SUMMARY | 2022-02-01 00:25 | XMS_ITS | Encounter Summary ---
:1960 Author Organization [facility] [place] [address] Care Team Providers Name Role Phone Irving Wheeler MD Primary Care Provider [phone] Reason for Visit Reason Comments Medication Refill Encounter Details Date Type Department Care Team Description 05/17/2020 Specialty Pharmacy Pharmacy at [facility] Dee Carrizales, [place] [address] Social History Tobacco Use Types Packs/Day Years [...] of this encounter Progress Notes Dee Carrizales [facility] - 05/17/2020 10:14 AM EST Clinical Management Plan: Refill Specialty Pharmacy Consultation; Dee Carrizales [facility] Comprehensive Medication Management (CMM) Mary Kay Lisa Ms. Mary Kay Gonzalez is a 59 y.o. (1960) female who was contacted in regard to a specialty medication refill reminder. Spoke with patient regarding Imatinib and Creon. A review of the medication therapy was performed. The medication was Refilled as scheduled, and all medication related questions and concerns were addressed. The specialty pharmacy staff will follow up with the patient 5-7 days prior to next refill. Patient request [employer] home delivery for $0 copay Was a change made to the Care Plan: no If yes, should the medication be held: No Assessment and Recommendations: Title Cognitive Ability: good Cognitive Impairment Status Verified this Year: no Allergies and Drug intolerance: No Known Allergies Medication Reconciliation Discrepancies (compared to [facility] med list) -none New medications: no New medical conditions: no New allergies: no Adherence: Medication Adherence Patient reported X missed [...] next specialty medication refill: delivery by pharmacy Are you experiencing any side effects from your medications? no Pt understands no changes to current drug regimen were made at the appointment and that [facility] is providing recommendations (summary located at top of note) for provider review and follow up. Dee Carrizales RPH 05/17/20 10:15 AM documented in this encounter Plan of Treatment Upcoming Encounters Date Type Specialty Care Team Description 02/15/2022 Office Visit Hematology and Oncology Morris Dozier MD [facility] ONCOLOGY [place], [place] [address] (Wo rk) documented as of [...] on filedocumented in this encounter Care Teams Furnace Maintenance Relationship Specialty Start Date End Date Irving Wheeler MD PCP - General 06/23/19 [address] [place] [address] documented as of this encounter
--- OUTSIDE RECORDS SUMMARY | 2022-02-01 00:25 | XMS_ITS | Encounter Summary ---
:1960 Author Organization [facility] [place] [address] Care Team Providers Name Role Phone Irving Wheeler MD Primary Care Provider [phone] Reason for Visit Reason Onset Date Comments Labs Only 06/02/2020 Lab Tracking Encounter Details Date Type Department Care Team Description 06/02/2020 Telephone Hematology/Oncology at Katherin Corona, Labs Only (Lab [facility] RN Tracking) [address] [place] [phone] Social History Tobacco Use Types Packs/Day [...] Telephone Encounter - Katherin Corona, RN - 06/02/2020 3:42 PM EST LAB TRACKING Jen Farmer ?? 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 LABS ORDERED: cbc diff ?? MEDICATIONS: Imatinib 100mg daily ?? Assessment/Plan: Labs reviewed with Dr. Dozier. Continue weekly CBC 06/09 and 06/16 with MD visit Results for JEN FARMER ( ) as of 06/02/2020 15:43 Ref. Range 05/19/2020 00:00 05/26/2020 00:00 06/02/2020 00:00 WBC Unknown 5.03 4.1 (A) 3.7 Hemoglobin Unknown 12.1 11.9 (A) 11.3 Hematocrit Unknown 38.1 37.0 35.0 Platelets Unknown 237 226 234 Neutr Abs (ANC) Unknown 3.22 2.06 2.45 documented in this encounter Plan of Treatment Upcoming Encounters Date Type Specialty Care Team Description 02/15/2022 Office Visit Hematology and Oncology Morris Dozier MD [facility] DR ONCOLOGY [place] [address] (Wo rk) documented as of this encounter [...] Diagnosis Comme nts CBC (WITH DIFF) Routine 06/02/2020 Results for this procedure are in the resu lts section. documented in this encounter Results CBC (with Diff) (06/02/2020) P athologist Signature WBC 3.7 Hemoglobin 11.3 Hematocrit 35.0 Platelets 234 Neutr Abs (ANC) 2.45 Specimen (Source) Anatomical Location Collection Method / Collectio n Time Received Time / Laterality Volume Blood 06/02/2020 Morris Dozier MD HEMATOLOGY ORDERABLES documented in this encounter Visit Diagnoses Not on filedocumented in this encounter Care Teams Sign Builder Relationship Specialty Start Date End Date Irving Wheeler MD PCP - General 06/23/19 [address] [place] [address] documented as of this encounter
--- OUTSIDE RECORDS SUMMARY | 2022-02-01 00:25 | XMS_ITS | Encounter Summary ---
:1960 Author Organization [facility] [place] [address] Care Team Providers Name Role Phone Irving Wheeler MD Primary Care Provider [phone] Reason for Visit Reason Comments Follow-up Encounter Details Date Type Department Care Team Description 05/02/2020 [place] B12 deficiency; [facility] MD Gurwinder Vitamin D deficiency; [facility] Iro n deficiency anemia, unspecified iron deficiency anemia type; Drive Exocrine pancreatic insufficiency [place], [place] GENERAL SURGERY [address] [place] [address] [phone] (Wo rk) Social History Tobacco Use Types [...] Sign Reading Time Taken Comments Blood Pressure 94/52 05/02/2020 9:59 AM EST Pulse 64 05/02/2020 9:59 AM EST Temperature 35.9 ??C (96.6 ??F) 05/02/2020 9:59 AM EST Respiratory Rate 16 05/02/2020 9:59 AM EST Oxygen Saturation 100% 05/02/2020 9:59 AM EST Inhaled Oxygen Concentration - - Weight 50 kg (110 lb 3.2 oz) 05/02/2020 9:59 AM EST Height 162.6 cm (5' 4.02) 05/02/2020 9:59 AM EST Body Mass Index 18.91 05/02/2020 9:59 AM EST documented in this encounter Progress Notes Emely Galdamez MD - 05/02/2020 10:00 AM EST I saw Eliud today to remove the J-tube. She has been off feeds for the past week and doing fantastic. Her weight is stable and if anything it is increasing. She says she has a excellent appetite. She is very active walking several miles a day outside. No nausea or vomiting symptoms and she has beenoff the Reglan for many weeks now. She is having normal bowel movements with no steatorrhea symptoms. She is taking a daily vitamin D as well as iron tablet. I removed the J-tube today without incident. I will plan to see her back in 4 months for her 6-month post Whipple nutritional appointment with blood work-CBC, CMP, vitamin D, ferritin, iron and vitamin B12. It is great to see her doing so well. Reid Galdamez MD 05/02/2020 10:33 AM documented in this encounter Plan of Treatment Upcoming Encounters Date Type Specialty Care Team Description 02/15/2022 Office Visit Hematology and Oncology Morris Dozier MD [facility] ONCOLOGY [place], [place] [address] (Wo rk) documented as of this [...] as of this encounter Visit Diagnoses Diagnosis Vitamin B12 deficiency Other B-complex deficiencies Vitamin D deficiency Unspecified vitamin D deficiency Iron deficiency anemia, unspecified iron deficiency anemia type Exocrine pancreatic insufficiency Other specified disease of pancreas documented in this encounter Care Teams Die Cutter Operator Relationship Specialty Start Date End Date Irving Wheeler MD PCP - General 06/23/[address] [place] [address] documented as of this encounter
--- OUTSIDE RECORDS SUMMARY | 2022-02-01 00:25 | XMS_ITS | Encounter Summary ---
:1960 [place] [address] Care Team Providers Name Role Phone Irving Wheeler MD Primary Care Provider [phone] Reason for Visit Reason Comments Medication Management Patient Education Encounter Details Date Type Department Care Team Description 07/19/2020 Specialty Pharmacy Pharmacy at [facility] Marielena Anaya RPH Managem ent; [place] [phone] Social History Tobacco Use Types Packs/Day Years [...] encounter Progress Notes Marielena Galdamez RPH - 07/19/2020 9:25 AM EST Specialty Pharmacy Consultation; Marielena Galdamez RPH Comprehensive [...] today and not experiencing any side effects. She is aware that she maybe titrated up on her dose as tolerated based on her labs and following her COVID vaccine. Med list reviewed - no major interactions identified. The patient is aware of the importance of follow up and infection prevention precautions. The importance of adherence to treatment and strategies to improve compliance including use of pill boxes, calendar reminders, or routine alarms was discussed. Resources are available to the patient from the cancer center such as whizzer consultation and social work services. Administration, allergies, dosage, and safe storage. The pharmacy's contact information, operating hours, and on-call services has been given to the patient verbally and in writing. The medication will be mailed out for a $0 copay. Economic Assessment: Patient is agreeable to medication copay: Yes Copay Amount: $0 Day Supply: 30 Date Needed: 07/26/20 Therapy Assessment: Appropriate Therapy: Yes Current Medication Dosing/Route/Frequency: Imatinib 100mg PO QD Additional equipment/supplies required: no Care [...] malnutrition E44.0 Medications Reviewed: Yes Medications reconciled: Yes Allergies Reviewed:Yes Allergies reconciled: Yes Pharmacist follow-up needed: Yes Informed patient of specialty pharmacy services: Yes -Patient will be provided with welcome and rights packet: Yes Date to be provided: 01/31/20 mail -Patient is aware a licensed pharmacist is [...] review and follow up. Marielena Galdamez RPH 07/19/20 9:35 AM documented in this encounter Plan of Treatment Upcoming Encounters Date Type Specialty Care Team Description 02/15/2022 Office Visit Hematology and Oncology Morris Dozier MD [facility] DR ONCOLOGY [place], [place] [address] (Wo rk) documented as of this encounter Goals Goal Patient Goal Associated Recent Patient-Stated? Author Type Problems Progress DH Home Medication Patient No Tamera calvillo, Compliance and Facing Brandt Morin, Understanding Action Plan [facility] Note: Formatting of this note might be d ifferent from the original. Remain 95% adherent to Imatinib therapy without significant neutropenia as assessed by CBC labs in clinic every 1 to 3 months documented as of this encounter Visit Diagnoses Not on filedocumented in this encounter Care Teams Toolroom Clerk Relationship Specialty Start Date End Date Irving Wheeler MD PCP - General 06/23/19 [address] [place] [address] documented as of this encounter
--- OUTSIDE RECORDS SUMMARY | 2022-02-01 00:25 | XMS_ITS | Encounter Summary ---
:1960 Author Organization [place] [address] Care Team Providers Name Role Phone Irving Wheeler MD Primary Care Provider [phone] Encounter Details Date Type Department Care Team Description 07/14/2020 Office Visit Hematology/Oncology Morris Dozier ointestinal stromal at [facility] MD Angel tumor (GIST) of [address] CENTER [address] ONCOLOGY [phone] [place] [address] Social History Tobacco Use Types Packs/Day Years [...] Sign Reading Time Taken Comments Blood Pressure 103/56 07/14/2020 2:16 PM EST Pulse 58 07/14/2020 2:16 PM EST Temperature 36.3 ??C (97.3 ??F) 07/14/2020 2:16 PM EST Respiratory Rate 16 07/14/2020 2:16 PM EST Oxygen Saturation 100% 07/14/2020 2:16 PM EST Inhaled Oxygen Concentration - - Weight 50.2 kg (110 lb 9.6 oz) 07/14/2020 2:16 PM EST Height 162.3 cm (5' 3.9) 07/14/2020 2:42 PM EST Body Mass Index 19.05 07/14/2020 2:16 PM EST documented in this encounter Progress Notes Morris oDzier MD - 07/14/2020 2:00 PM EST Subjective: Patient ID: Jen Farmer is a 60 y.o. female. Problem List: 1. GIST, small bowel A. [...] of resection specimen. 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 Discussed at GI [...] at 100 mg per day on 05/07/20. 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 On 02/23/20 she underwent a Whipple procedure with resection of the duodenal GIST, path report above. Restarted imatinib at 100 mg per day on 05/07/20 She continues feeling well and is tolerating the imatinib well. No nausea or vomiting and no abd pain or discomfort. She is eating well. Her weight is in the same range that it has been recently. Her energy level is good. Her bowels are regular. She is taking Creon with meals, about 3 per day. No fevers or chills. Soc Hx:Divorces, lives in [place], [place] Tob - Quit in mid Etoh - none recently. 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 Fam Hx: Father - at [...] 06/23/2020 00:00 06/30/2020 00:00 07/07/2020 00:00 07/14/20 WBC Unknown 3.0 (A) 3.5 (A) 3.6 3.4 Hemoglobin Unknown 12.8 12.9 13.2 12.3 Hematocrit Unknown 40.0 39.0 41.0 38 Platelets Unknown 221 211 235 196 Neutr Abs (ANC) Unknown 1.66 1.57 2.01 1830 ?? (06/30/20): WBC/ANC - 3.09/1589, Hgb/Hct - 12.9/39, [...] Vit D - 17.2 Assessment and Plan: Ms. Farmer is a 59 yo female referred for evaluation and management of a small bowel GIST. An EGD was done 06/2019 due to [...] from this is consistent with a GIST. Molecular studies [...] day on 12/31/19. She was hospitalized at [facility] from 01/31 to 02/04/20. [...] on 05/07/20. She is tolerating this well. Her WBCANC have been lower since starting that, but stable and ok to continue. She is going to have the first Covid 19 vaccine shot tomorrow. We talked about trying to increase the dose of the imatinib. Given that she is having the first vaccine shot tomorrow, we do not plan to do that now. I will see her in about two weeks with repeat labs,including cbc, cmp, iron studies and a CT c/a/p. The latter will be done at [facility]. documented in this encounter Plan of Treatment Upcoming Encounters Date Type Specialty Care Team Description 02/15/2022 Office Visit Hematology and Oncology Morris Dozier MD [facility] [address] ONCOLOGY [place], [place] [address] (Wo rk) documented as of this encounter Goals Goal Patient Goal Associated Recent Patient-Stated? Author Type Problems Progress DH Home Medication Patient No Tamera calvillo, Compliance and Facing Brandt Morin Understanding Action Plan [facility] Note: Formatting of this note might be d ifferent from the original. Remain 95% adherent to Imatinib therapy without significant neutropenia as assessed by CBC labs in clinic every 1 to 3 months documented as of this encounter Visit Diagnoses Diagnosis Gastrointestinal stromal tumor (GIST) of duodenum documented in this encounter Care Teams Senior Gl Accountant Relationship Specialty Start Date End Date Irving Wheeler MD PCP - General 06/23/19 [address] [place] [address] documented as of this encounter
--- OUTSIDE RECORDS SUMMARY | 2022-02-01 00:25 | XMS_ITS | Encounter Summary ---
:1960 Author Organization [facility] [place] [address] Care Team Providers Name Role Phone Irving Wheeler MD Primary Care Provider [phone] Encounter Details Date Type Department Care Team Description 06/30/2020 TH Visit Hematology/Oncology Nicanor Dozier MD [facility] [place] [address] Gastrointestinal stromal (TeleHealth) at [facility] Tere Beckham APRN [address] [place] [address] DR HEMATOLOGY ONCOLOGY [place], [place] [phone] tumor (GIST) of duodenum [address] [place] [phone] Social History Tobacco Use Types Packs/Day Years [...] encounter Progress Notes Morris Dozier MD - 06/30/2020 2:30 PM EST Subjective: Patient ID: Mary Kay Gonzalez is a 60 y.o. female. Problem List: [...] of resection specimen. Molecular studies - KIT [id number] del, exon 11 C. Discussed at GI [...] mg per day on 05/07/20. 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 On 02/23/20 she underwent a Whipple procedure with resection of the duodenal GIST, path report above. Restarted imatinib at 100 mg per day on 05/07/20 This is a telephone encounter. She is feeling well. She seems to be tolerating the imatinib well. Nonausea or vomiting and no abd pain or discomfort. She is eating well and thinks she has gained some weight (as of last week). Her energy Her bowels are regular. She is taking Creon with meals. No fevers or chills. Her energy level and strength are good. Soc Hx:Divorces, lives in [place], [place] Tob - Quit in mid Etoh - none recently. 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 Fam Hx: Father - at [...] Exam Neurological: Mental Status: She is alert. Psychiatric: Mood and Affect: Mood normal. Thought Content: Thought content normal. Labs:(06/30/20): WBC/ANC - 3.09/1589, Hgb/Hct - 12.9/39, Plts [...] D - 17.2 Assessment and Plan: Ms. Gonzalez is a 59 yo female [...] day on 12/31/19. She was hospitalized at [facility] from 01/31 to 02/04/20. She had presented [...] have been lower since starting that, but ok to continue. She has concerns about the fact that the WBC is lower and, while willing tocontinue the medication, we are not planning to try to escalate the dose. She asked about the Covid 19 vaccination. She may be able to get this next week through her PCP. If so, she would like to come off the imatinib because she wants to give her body the best chance to respond to this. I think that is ok. She is going to let us know if that shot is still available to her.If so, she will stop the gleevec today and say off until a week or so after the second injection. Wewould then see her in a month or so with labs and a CT scan. If it is not available, she will stay on the imatinib and we will continue to check weekly labs and see her on 07/14. I provided care to the patient today via telephone call. The total time associated with this visit was 20 minutes. documented in this encounter Plan of Treatment Upcoming Encounters Date Type Specialty Care Team Description 02/15/2022 Office Visit Hematology and Oncology Morris Dozier MD [facility] ONCOLOGY [place], [place] [address] (Wo rk) documented as of this encounter Goals Goal Patient Goal Associated Recent Patient-Stated? Author Type Problems Progress DH Home Medication Patient No Tamera calvillo, Compliance and Facing Brandt Morin, Understanding Action Plan [facility] Note: Formatting of this note might be d ifferent from the original. Remain 95% adherent to Imatinib therapy without significant neutropenia as assessed by CBC labs in clinic every 1 to 3 months documented as of this encounter Visit Diagnoses Diagnosis Gastrointestinal stromal tumor (GIST) of duodenum documented in this encounter Care Teams Metal Baler Relationship Specialty Start Date End Date Irving Wheeler MD PCP - General 06/23/[address] [place] [id number] documented as of this encounter
--- OUTSIDE RECORDS SUMMARY | 2022-02-01 00:25 | XMS_ITS | Encounter Summary ---
:1960 Author Organization [facility] [place] [address] Care Team Providers Name Role Phone Irving Wheeler MD Primary Care Provider [phone] Reason for Visit Reason Onset Date Comments Labs Only 06/09/2020 Lab Tracking Encounter Details Date Type Department Care Team Description 06/09/2020 Telephone Hematology/Oncology at [facility], Labs Only (Lab [facility] RN Tracking) [address] [place] [phone] Social History Tobacco Use Types Packs/Day [...] Telephone Encounter - Katherin Corona, RN - 06/09/2020 2:32 PM EST LAB TRACKING Jen Farmer ?? 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 LABS ORDERED: cbc diff ?? MEDICATIONS: Imatinib 100mg daily ?? Assessment/Plan: Labs reviewed with Dr. Dozier. Continue weekly CBC 06/09 and 06/16 with MD visit Results for JEN FARMER ( ) as of 06/09/2020 14:34 Ref. Range 05/26/2020 00:00 06/02/2020 00:00 06/09/2020 00:00 WBC Latest Ref Range: 4.8 - 10.8 4.1 (A) 3.7 3.3 (A) Hemoglobin Unknown 11.9 (A) 11.3 12.2 Hematocrit Unknown 37.0 35.0 38.0 Platelets Unknown 226 234 248 Neutr Abs (ANC) Unknown 2.06 2.45 1.76 documented in this encounter Plan of Treatment Upcoming Encounters Date Type Specialty Care Team Description 02/15/2022 Office Visit Hematology and Oncology Morris Dozier MD [facility] DR ONCOLOGY [place], [place] [address] (Wo rk) documented as of this encounter Goals Goal Patient Goal Associated Recent Patient-Stated? Author Type Problems Progress DH Home Medication Patient No Tamera calvillo, Compliance and Facing Brandt Morin Understanding Action Plan [facility] Note: Formatting of this note might be d ifferent from the original. Remain 95% adherent to Imatinib therapy without significant neutropenia as assessed by CBC labs in clinic every 1 to 3 months documented as of this encounter Procedures Procedure Name Priority Date/Time Associated Diagnosis Comme nts CBC (WITH DIFF) Routine 06/09/2020 Results for this procedure are in the resu lts section. documented in this encounter Results (ABNORMAL) CBC (with Diff) (06/09/2020) P athologist Signature WBC 3.3 (A) 4.8 - 10.8 Hemoglobin 12.2 Hematocrit 38.0 Platelets 248 Neutr Abs (ANC) 1.76 Specimen (Source) Anatomical Location Collection Method / Collectio n Time Received Time / Laterality Volume Blood 06/09/2020 Morris Dozier MD HEMATOLOGY ORDERABLES documented in this encounter Visit Diagnoses Not on filedocumented in this encounter Care Teams Loom Fixer Relationship Specialty Start Date End Date Irving Wheeler MD PCP - General 06/23/19 [address] [place] [address] documented as of this encounter
--- OUTSIDE RECORDS SUMMARY | 2022-02-01 00:25 | XMS_ITS | Encounter Summary ---
:1960 Author Organization [facility] [place] [address] Care Team Providers Name Role Phone Irving Wheeler MD Primary Care Provider [phone] Encounter Details Date Type Department Care Team Description 04/21/2020 Office Visit Hematology/Oncology Nicanor Dozier MD [facility] [place] [address] Gastrointestinal stromal tumor (GIST) of duodenum; at [facility] Tere Beckham APRN [address] [place] [address] [place] [address] Normocytic [address] [place] [phone] Social History Tobacco Use Types Packs/Day [...] Sign Reading Time Taken Comments Blood Pressure 104/56 04/21/2020 11:44 AM EST Pulse 62 04/21/2020 11:44 AM EST Temperature 36.5 ??C (97.7 ??F) 04/21/2020 11:44 AM EST Respiratory Rate 18 04/21/2020 11:44 AM EST Oxygen Saturation 99% 04/21/2020 11:44 AM EST Inhaled Oxygen Concentration - - Weight 51.1 kg (112 lb 9.6 04/21/2020 11:44 AM with brady ts on. oz) EST Height 162.6 cm (5' 4) 04/21/2020 11:44 AM EST Body Mass Index 19.33 04/21/2020 11:44 AM EST documented in this encounter Progress Notes Morris Dozier MD - 04/21/2020 11:30 AM EST Subjective: Patient ID: Jen Farmer is a 59 y.o. female. Problem List: 1. GIST, small [...] of resection specimen. Molecular studies - KIT [id number] del, exon 11 C. Discussed at GI [...] abuts but does not invade the pancreas. 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 On 02/23/20 she underwent a Whipple procedure with resection of the duodenal GIST, path report above. Due to visitor restrictions related to Covid 19, she is by herself in [facility]. She is doing fairly well and improving with time. She is eating better. She has been able to wean off the reglan as of lastweek. She has gained weight. She is reducing the tube feedings, now every other night. She is planning to stop them altogether on 04/[address] Galdamez the following week with plans for removal of the tube if she is doing well. No abdominal bloating or discomfort. Her bowels are regular. She istaking Creon with meals. No fevers or chills. Her energy level and strength have improved and she isactive. Soc Hx:Divorces, lives in [place], [place] Tob - Quit in mid Etoh - none recently. 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 Fam Hx: Father - at [...] Negative. Psychiatric/Behavioral: Negative. Objective: Physical Exam Vitals signs reviewed. Constitutional: General: She is not in acute distress. HENT: Head: Normocephalic and atraumatic. Eyes: General: No scleral icterus. Cardiovascular: Rate and Rhythm: Normal rate and regular rhythm. Pulmonary: Effort: Pulmonary effort is normal. No respiratory distress. Breath sounds: No wheezing. Abdominal: General: There is no distension. Comments: Midline abdominal incision appears to be healing well. Dressings not removed from tube sites. Musculoskeletal: General: No swelling. Lymphadenopathy: Cervical: No cervical adenopathy. Upper Body: Right upper body: No supraclavicular adenopathy. Left upper body: No supraclavicular adenopathy. Skin: General: Skin is warm and dry. Findings: No rash. Neurological: General: No focal deficit present. Mental Status: She is alert and oriented to person, place, and time. Coordination: Coordination normal. Psychiatric: Mood and Affect: Mood normal. Thought Content: Thought content normal. Results for JEN FARMER ( ) as of 04/20/2020 22:06 Ref. Range 04/18/2020 13:45 WBC Latest Ref Range: 4.0 - 9.5 x10(3)/mcL 4.9 RBC Latest Ref Range: 4.00 - 5.21 x10(6)/mcL 3.56 (L) Hemoglobin Latest Ref Range: 11.7 - 15.5 gm/dL 10.3 (L) Hematocrit Latest Ref Range: 35.7 - 45.8 % 33.3 (L) MCV Latest Ref Range: 82.6 - 94.4 fL 93.5 MCH Latest Ref Range: 27.1 - 32.0 pg 28.9 MCHC Latest Ref Range: 31.7 - 35.0 gm/dL 30.9 (L) RDWSD Latest Ref Range: 37.0 - 46.0 fL 56.3 (H) RDWCV Latest Ref Range: 11.5 - 14.1 % 16.4 (H) Platelets Latest Ref Range: 145 - 357 x10(3)/mcL 302 MPV Latest Ref Range: 7.6 - 12.9 fL 9.2 nRBC % Auto Latest Units: % 0.0 nRBC Abs Auto Latest Ref Range: 0.000 - 0.000 x10(3)/mcL 0.000 Neutr Abs (ANC) Latest Ref Range: 1.70 - 6.10 x10(3)/mcL 2.86 Neutrophils % Latest Units: % 58.3 Immature Gran % Latest Units: % 0.20 Lymphocytes % Latest Units: % 33.4 Monocytes % Latest Units: % 6.9 Eosinophils % Latest Units: % 0.8 Basophils % Latest Units: % 0.4 Teresa Gran Abs Latest Ref Range: 0.00 - 0.04 x10(3)/mcL 0.01 Lymphocytes Abs Latest Ref Range: 0.9 - 3.2 x10(3)/mcL 1.6 Monocyte Abs Latest Ref Range: 0.3 - 0.9 x10(3)/mcL 0.3 Eosinophils Abs Latest Ref Range: 0.0 - 0.4 x10(3)/mcL 0.0 Basophils Abs Latest Ref Range: 0.0 - 0.1 x10(3)/mcL 0.0 Sodium Latest Ref Range: 135 - 145 mmol/L 141 Potassium Latest Ref Range: 3.5 - 5.0 mmol/L 4.2 Chloride Latest Ref Range: 98 - 107 mmol/L 105 CO2 Latest Ref Range: 22 - 31 mmol/L 27 Anion Gap Latest Ref Range: 5 - 15 mmol/L 9 BUN Latest Ref Range: 8 - 18 mg/dL 17 Creatinine Latest Ref Range: 0.70 - 1.20 mg/dL 0.41 (L) Estimated GFR Latest Ref Range: >=60 mL/min/1.73 m?? 115 Calcium Latest Ref Range: 8.5 - 10.5 mg/dL 9.0 Glucose Lvl Latest Ref Range: 65 - 199 mg/dL 74 Total Protein Latest Ref Range: 6.1 - 8.0 gm/dL 6.3 Albumin Latest Ref Range: 3.2 - 5.2 gm/dL 4.3 Total Bilirubin Latest Ref Range: 0.2 - 1.3 mg/dL 0.4 Alk Phos Latest Ref Range: 35 - 105 unit/L 69 AST Latest Ref Range: 0 - 30 unit/L 24 ALT Latest Ref Range: 0 - 30 unit/L 36 (H) Prealbumin Latest Ref Range: 20 - 40 mg/dL 27 Assessment and Plan: Ms. Farmer is a [...] day on 12/31/19. She was hospitalized at [facility] from 01/31 to 02/04/20. She had presented [...] closely, ie with weekly labs initially. She is recovering well from the surgery. We are going to go ahead and put in the prescription for the imatinib at 100 mg per day. I will do a telephone encounter with her next week and will recheck labs prior, including a cbc, retic count iron tests, B12 and folate, due to the anemia. We likely will have her start after that. documented in this encounter Plan of Treatment Upcoming Encounters Date Type Specialty Care Team Description 02/15/2022 Office Visit Hematology and Oncology Morris Dozier MD [facility] DR ONCOLOGY [place] [address] (Wo rk) documented as of this encounter Goals Goal Patient Goal Associated Recent Patient-Stated? Author Type Problems Progress DH Home Medication Patient No Rozoberenice calvillo, Compliance and Facing Brandt Morin, Understanding Action Plan [facility] Note: Formatting of this note might be d ifferent from the original. Remain 95% adherent to Imatinib therapy without significant neutropenia as assessed by CBC labs in clinic every 1 to 3 months documented as of this encounter Visit Diagnoses Diagnosis Gastrointestinal stromal tumor (GIST) of duodenum Normocytic anemia Anemia, unspecified documented in this encounter Care Teams Swimming Instructor Relationship Specialty Start Date End Date Irving Wheeler MD PCP - General 06/23/19 [address] [place] [address] documented as of this encounter
--- OUTSIDE RECORDS SUMMARY | 2022-02-01 00:25 | XMS_ITS | Encounter Summary ---
:1960 Author Organization [facility] [place] [address] Care Team Providers Name Role Phone Irving Wheeler MD Primary Care Provider [phone] Reason for Visit Reason Onset Date Comments Labs Only 07/28/2020 lab tracking Encounter Details Date Type Department Care Team Description 07/28/2020 Telephone Hematology/Oncology at [facility], Labs Only (lab [facility] RN tracking) [address] [place] [phone] Social History Tobacco Use Types Packs/Day [...] Telephone Encounter - Katherin Corona, RN - 07/28/2020 2:47 PM EDT LAB TRACKING Jen Farmer [id number] 1960 ?? 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 LABS ORDERED: cbc diff ?? MEDICATIONS: Imatinib 100mg daily Assessment/Plan: Will stay at 100 mg imatinib daily. We will now check CBC every 2 weeks at [facility].Next FUV on 08/25 with CBC, CMP Results for JEN FARMER ( ) as of 07/28/2020 14:45 Ref. Range 07/07/2020 00:00 07/14/2020 00:00 07/28/2020 00:00 WBC Unknown 3.6 3.4 3.6 Hemoglobin Unknown 13.2 12.3 12.9 Hematocrit Unknown 41.0 38.0 40.0 Platelets Unknown 235 196 233 Neutr Abs (ANC) Unknown 2.01 1.85 2.2 documented in this encounter Plan of Treatment Upcoming Encounters Date Type Specialty Care Team Description 02/15/2022 Office Visit Hematology and Oncology Morris Dozier MD [facility] DR ONCOLOGY [place] [address] (Wo rk) documented as of this encounter Goals Goal Patient Goal Associated Recent Patient-Stated? Author Type Problems Progress DH Home Medication Patient No Tamera calvillo, Compliance and Facing Brandt Morin Understanding Action Plan [facility] Note: Formatting of this note might be d ifferent from the original. Remain 95% adherent to Imatinib therapy without significant neutropenia as assessed by CBC labs in clinic every 1 to 3 months documented as of this encounter Procedures Procedure Name Priority Date/Time Associated Diagnosis Comme nts CBC (WITH DIFF) Routine 07/28/2020 Results for this procedure are in the resu lts section. documented in this encounter Results CBC (with Diff) (07/28/2020) P athologist Signature WBC 3.6 Hemoglobin 12.9 Hematocrit 40.0 Platelets 233 Neutr Abs (ANC) 2.2 Specimen (Source) Anatomical Location Collection Method / Collectio n Time Received Time / Laterality Volume Blood 07/28/2020 Morris Dozier MD HEMATOLOGY ORDERABLES documented in this encounter Visit Diagnoses Not on filedocumented in this encounter Care Teams Hands Hanger Relationship Specialty Start Date End Date Irving Wheeler MD PCP - General 06/23/19 [address] [place] [address] documented as of this encounter
--- OUTSIDE RECORDS SUMMARY | 2022-02-01 00:25 | XMS_ITS | Encounter Summary ---
:1960 Author Organization [facility] [place] [address] Care Team Providers Name Role Phone Irving Wheeler MD Primary Care Provider [phone] Reason for Visit Reason Comments Specialty Pharmacy Review Imatinib Encounter Details Date Type Department Care Team Description 04/27/2020 Specialty Pharmacy Pharmacy at [facility] Review (Ant mclaughlin) [place] [id number] Social History Tobacco Use Types Packs/Day Years [...] documented as of this encounter Progress Notes Blessing Swenson - 04/27/2020 9:41 AM EST The [facility] has completed a benefits investigation for Mary Kay Gonzalez to review theireligibility to fill at [facility]. Per patient's medication list they are prescribed IMATINIB and the medication is able to be filled at the - Specialty Pharmacy. Fills with pharmacy. documented in this encounter Plan of Treatment Upcoming Encounters Date Type Specialty Care Team Description 02/15/2022 Office Visit Hematology and Oncology Morris Dozier MD [facility] [address] ONCOLOGY [place], [place] [address] (Wo rk) documented as of this encounter Goals Goal Patient Goal Associated Recent Patient-Stated? Author Type Problems Progress Home Medication Patient No Tamera calvillo, Compliance and Facing Brandt Morin, Understanding Action Plan [facility] Note: Formatting of this note might be d ifferent from the original. Remain 95% adherent to Imatinib therapy without significant neutropenia as assessed by CBC labs in clinic every 1 to 3 months documented as of this encounter Visit Diagnoses Not on filedocumented in this encounter Care Teams Commissioning Manager Relationship Specialty Start Date End Date Irving Wheeler MD PCP - General 06/23/[address] [place] [id number] documented as of this encounter
--- OUTSIDE RECORDS SUMMARY | 2022-02-01 00:25 | XMS_ITS | Encounter Summary ---
:1960 Author Organization [facility] [place] [address] Care Team Providers Name Role Phone Irving Wheeler MD Primary Care Provider [phone] Reason for Visit Reason Comments Specialty Pharmacy Review Imatinib Encounter Details Date Type Department Care Team Description 09/08/2020 Specialty Pharmacy Pharmacy at [facility] L Review (I lissette) [place] [id number] Social History Tobacco Use Types Packs/Day Years [...] of this encounter Progress Notes [facility] - 09/08/2020 11:59 PM EDT The [facility] has completed a benefits investigation for Mary Kay Gonzalez to review theireligibility to fill at [facility]. Per patient's medication list they are prescribed IMATINIB and the medication is able to be filled at the Specialty Pharmacy. Fills with pharmacy. documented in this encounter Plan of Treatment Upcoming Encounters Date Type Specialty Care Team Description 02/15/2022 Office Visit Hematology and Oncology Morris Dozier MD [facility] DR ONCOLOGY [place], [place] [address] (Wo rk) documented as of this encounter Goals Goal Patient Goal Associated Recent Patient-Stated? Author Type Problems Progress Home Medication Patient No Tamera calvillo, Compliance and Facing Brandt Morin, Understanding Action Plan [facility] Note: Formatting of this note might be d ifferent from the original. Remain 95% adherent to Imatinib therapy without significant neutropenia as assessed by CBC labs in clinic every 1 to 3 months documented as of this encounter Visit Diagnoses Not on filedocumented in this encounter Care Teams Visual Merchandise Manager Relationship Specialty Start Date End Date Irving Wheeler MD PCP - General 06/23/[address] [place] [id number] documented as of this encounter
--- OUTSIDE RECORDS SUMMARY | 2022-02-01 00:25 | XMS_ITS | Encounter Summary ---
:1960 Author Organization [facility] [place] [address] Care Team Providers Name Role Phone Irving Wheeler MD Primary Care Provider [phone] Encounter Details Date Type Department Care Team Description 06/16/2020 Office Visit Hematology/Oncology Nicanor Dozier MD [facility] [place] [address] Gastrointestinal stromal at [facility] Tere Beckham APRN [address] [place] [address] DR [place] [address] tumor (GIST) of duodenum [address] [place] [phone] Social History Tobacco Use Types Packs/Day [...] Sign Reading Time Taken Comments Blood Pressure 99/58 06/16/2020 1:52 PM EST Pulse 72 06/16/2020 1:52 PM EST Temperature 36.2 ??C (97.2 ??F) 06/16/2020 1:52 PM EST Respiratory Rate 16 06/16/2020 1:52 PM EST Oxygen Saturation 100% 06/16/2020 1:52 PM EST Inhaled Oxygen Concentration - - Weight 51.7 kg (114 lb) 06/16/2020 1:52 PM EST Height 162 cm (5' 3.78) 06/16/2020 1:52 PM EST Body Mass Index 19.7 06/16/2020 1:52 PM EST documented in this encounter Progress Notes Tere Beckham, JIG AND FIXTURE MAKER - 06/16/2020 1:30 PM EST Subjective: Patient ID: Mary Kay Gonzalez is a 59 y.o. female. Patient Active Problem List Diagnosis [...] on 12/31/19. ?? She was hospitalized at [facility] from 01/31 to 02/04/20. [...] mg per day. ??2:48 PM INTERVAL HPI 06/16/20 Mary Kay Gonzalez is a 59 yo [...] goal of increasing the dose to 200mg QD when blood counts can support it. Mary Kay returns to the [facility] in [facility] today for routine follow up and lab assessment. Mary Kay states she is feeling good today and that most days she feels quite good. She says the only time she didn't feel well was in 2018 when she was anemic and short winded. I feel good. The only time she says she did not feel good was in 2019 when she was anemic. Mary Kay says she is back to doing everything she wants to do now. 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 Mary Kay reports eating well and passing stool without difficulty. No diarrhea or constipation. She denies any BRBPR or tarry stools. She denies nausea and says food tastes good. She takes between 1-3 creon with meals depending on volume and content. She denies abdominal pain She is continuing to take 50 mg Iron po QD. She denies pain or sensitivity along the vertical abdominal incision. Mary Kay denies shortness of breath, chest pain or new cough or heart palpitations. She feels her eyelids are a little puffy and she thinks this is from the Gleevec. She confirms she is taking 100 mg po QD. No Known Allergies Current Medications ??? imatinib (GLEEVEC) chemo tablet ??? omeprazole (PriLOSEC) 40 mg Capsule, Delayed Release(E.C.) ??? Zinc 50 mg Tablet ??? czrkhc-vcvbopno-tdsmonz DR (Creon 24) 24,000-76,000 -120,000 unit Capsule, Delayed Release(E.C.) ??? ferrous sulfate (IRON ORAL) ??? cholecalciferol, Vitamin D3, 50 mcg (2,000 unit) Capsule ??? docusate sodium (Colace) 100 mg Capsule ??? acetaminophen (Tylenol) 500 mg Tablet No family history on file. Social History Tobacco Use ??? Smoking status: Former Smoker Packs/day: 0.50 Types: Cigarettes Quit date: 1994 Years since quittin.1 ??? Smokeless tobacco: Never Used ??? Tobacco comment: never vape Substance Use Topics ??? Alcohol use: Not Currently Comment: none since 05/12/2019 ??? Drug use: Never Review of Systems Constitutional: Negative for activity change and appetite change. HENT: Negative for mouth sores. Eyes: Puffy eyelids Respiratory: Negative for cough and shortness of breath. Gastrointestinal: Negative for abdominal pain, blood in stool, constipation, diarrhea and nausea. Genitourinary: Negative. Musculoskeletal: Negative. Skin: Negative. Neurological: Negative. Psychiatric/Behavioral: Negative. Objective: Physical Exam Vitals [...] is no abdominal tenderness. Musculoskeletal: Cervical back: Tenderness present. Right lower leg: No edema. Left lower leg: No edema. Lymphadenopathy: Cervical: No cervical adenopathy. Skin: General: Skin is warm and dry. Comments: Well-healed vertical abdominal incision without tenderness Neurological: Mental Status: She is oriented to person, place, and time. Psychiatric: Mood and Affect: Mood normal. Thought Content: Thought content normal. BP 99/58 (Patient Position: Sitting) Pulse 72 Temp 36.2 ??C (97.2 ??F) (Temporal) Resp 16 Ht162 cm (5' 3.78) Wt 51.7 kg (114 lb) SpO2 100% BMI 19.70 kg/m?? LABS 06/16/20 WBC 3.7; ANC 2.42; H/H 12.5/ 39; PLT 243; BUN 17; CREAT 0.70; ALP 76; ALT 53; AST; BILI 0.4 FERRITIN 18 (8-252) ; IRON 59 (50-170); TIBC 328; SAT 17.9. 05/19/20 WBC 5.03; ANC 3.22; H/H 12.1/ 38.1; PLT 237. 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 She was on neoadjuvant Imatinib, had a Whipple 02/28 and is now on maintenance Imatinib 100mg QD. Mary Kay is doing very well. She is back to work. She is tolerating the Imatinib with little toxicity.WBC and neutrophils decreased slightly in past month, otherwise CBC is stable. Ferritin and Iron at low end of parameters, H/H normal. Mary Kay to continue with daily Iron for now. Plan: Continue Imatinib at same dose, 100mg po QD. Repeat CBC weekly, Repeat Iron studies in one month with RTC visit. documented in this encounter Plan of Treatment Upcoming Encounters Date Type Specialty Care Team Description 02/15/2022 Office Visit Hematology and Oncology Morris Dozier MD [facility] ONCOLOGY [place], [place] [address] (Wo rk) documented as of this encounter Goals Goal Patient Goal Associated Recent Patient-Stated? Author Type Problems Progress DH Home Medication Patient No Tamera ky, Compliance and Facing Adrien Reaves Action Plan [facility] Note: Formatting of this note might be d ifferent from the original. Remain 95% adherent to Imatinib therapy without significant neutropenia as assessed by CBC labs in clinic every 1 to 3 months documented as of this encounter Procedures Procedure Name Priority Date/Time Associated Diagnosis Comme nts IRON AND TIBC Routine 06/16/2020 Results for th is procedure are i n the results section . CBC (WITH DIFF) Routine 06/16/2020 Results for this procedure are i n the results section . FERRITIN Routine 06/16/2020 Results for thi s procedure are i n the results section . COMPREHENSIVE METABOLIC Routine 06/16/2020 Resu lts for this PANEL (NON-FASTING) procedur e are in the results section . documented in this encounter Results Ferritin (06/16/2020) P athologist Signature Ferritin 18 ng/mL Specimen (Source) Anatomical Location Collection Method / Collectio n Time Received Time / Laterality Volume Blood Tere Beckham APRN CHEMISTRY ORDERABLES Iron and TIBC (06/16/2020) athologist Signature Iron 59 TIBC 328 Specimen (Source) Anatomical Location Collection Method / Collectio n Time Received Time / Laterality Volume Blood Tere Beckham APRN CHEMISTRY ORDERABLES Comprehensive metabolic panel (non-fasting) (06/16/2020) athologist Signature BUN 17 Creatinine 0.70 Total Bilirubin 0.4 Specimen (Source) Anatomical Location Collection Method / Collectio n Time Received Time / Laterality Volume Blood 06/16/2020 Tere Beckham APRN CHEMISTRY ORDERABLES CBC (with Diff) (06/16/2020) P athologist Signature WBC 3.7 Hemoglobin 12.5 Hematocrit 39.0 Platelets 243 Neutr Abs (ANC) 2.42 Specimen (Source) Anatomical Location Collection Method / Collectio n Time Received Time / Laterality Volume Blood Tere Beckham APRN HEMATOLOGY ORDERABLES documented in this encounter Visit Diagnoses Diagnosis Gastrointestinal stromal tumor (GIST) of duodenum documented in this encounter Care Teams Mounted Police Relationship Specialty Start Date End Date Irving Wheeler MD PCP - General 06/23/[address] [place] [id number] documented as of this encounter
--- OUTSIDE RECORDS SUMMARY | 2022-02-01 00:25 | XMS_ITS | Encounter Summary ---
:1960 Author Organization [facility] [place] [address] Care Team Providers Name Role Phone Irving Wheeler MD Primary Care Provider [phone] Reason for Visit Reason Onset Date Comments Labs Only 06/16/2020 Lab Tracking Encounter Details Date Type Department Care Team Description 06/16/2020 Telephone Hematology/Oncology at [facility], Labs Only (Lab Tracking) [facility] Jessika Navas RN [address] [place] [phone] Social History Tobacco Use Types Packs/Day Years [...] Telephone Encounter - Jessika Zhu RN - 06/16/2020 1:30 PM EST LAB TRACKING Jen Farmer [id number] 1960 ?? 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 LABS ORDERED: cbc diff ?? MEDICATIONS: Imatinib 100mg daily Assessment/Plan: Patient was seen by Tere Beckham APRN in clinic today. Will stay at 100 mg imatinib daily. Continue weekly CBC at [facility]. Next FUV on 07/14 with CBC, CMP, Iron/TIBC, Ferritin prior. She is in agreement with plan. Results for JEN FARMER ( ) as of 06/16/2020 14:01 Ref. Range 05/19/2020 00:00 05/26/2020 00:00 06/02/2020 00:00 06/09/2020 00:00 06/16/2020 00:00 WBC Unknown 5.03 4.1 (A) 3.7 3.3 (A) 3.7 Hemoglobin Unknown 12.1 11.9 (A) 11.3 12.2 12.5 Hematocrit Unknown 38.1 37.0 35.0 38.0 39.0 Platelets Unknown 237 226 234 248 243 Neutr Abs (ANC) Unknown 3.22 2.06 2.45 1.76 2.42 BUN Unknown 17 Creatinine Unknown 0.70 Total Bilirubin Unknown 0.4 Iron Unknown 59 TIBC Unknown 328 Ferritin Latest Units: ng/mL 18 documented in this encounter Plan of Treatment Upcoming Encounters Date Type Specialty Care Team Description 02/15/2022 Office Visit Hematology and Oncology Morris Dozier MD [facility] DR ONCOLOGY [place] [address] (Wo rk) documented as of this encounter Goals Goal Patient Goal Associated Recent Patient-Stated? Author Type Problems Progress DH Home Medication Patient No Rovinicio calvillo, Compliance and Facing Brandt Morin Understanding Action Plan [facility] Note: Formatting of this note might be d ifferent from the original. Remain 95% adherent to Imatinib therapy without significant neutropenia as assessed by CBC labs in clinic every 1 to 3 months documented as of this encounter Visit Diagnoses Not on filedocumented in this encounter Care Teams Gang Vibrator Operator Relationship Specialty Start Date End Date Irving Wheeler MD PCP - General 06/23/19 [address] [place] [address] documented as of this encounter
--- OUTSIDE RECORDS SUMMARY | 2022-02-01 00:25 | XMS_ITS | Encounter Summary ---
:1960 Author Organization [facility] [place] [address] Care Team Providers Name Role Phone Irving Wheeler MD Primary Care Provider [phone] Encounter Details Date Type Department Care Team Description 08/10/2020 Orders Only Hematology and Morris Dozier Gastrointbernie stinal stromal Oncology at [facility] MD Angel tumor (GIST) of duodenum [facility] [address] [place] [address] [phone] Social History Tobacco Use Types Packs/Day Years [...] Morris Dozier MD [facility] ONCOLOGY [place], [place] [address] (Wo rk) documented as of this encounter Goals Goal Patient Goal Associated Recent Patient-Stated? Author Type Problems Progress DH Home Medication Patient No Tamera calvillo, Compliance and Facing Brandt Morin, Understanding Action Plan [facility] Note: Formatting of this note might be d ifferent from the original. Remain 95% adherent to Imatinib therapy without significant neutropenia as assessed by CBC labs in clinic every 1 to 3 months documented as of this encounter Visit Diagnoses Diagnosis Gastrointestinal stromal tumor (GIST) of duodenum documented in this encounter Care Teams Automatic Door Mechanic Relationship Specialty Start Date End Date Irving Wheeler MD PCP - General 06/23/[address] [place] [id number] documented as of this encounter
--- OUTSIDE RECORDS SUMMARY | 2022-02-01 00:25 | XMS_ITS | Encounter Summary ---
:1960 Author Organization [facility] [place] [address] Care Team Providers Name Role Phone Irving Wheeler MD Primary Care Provider [phone] Encounter Details Date Type Department Care Team Description 04/18/2020 Clinical Support General Surgery at [facility] Frausto Ma [facility], RD gastrointestinal stromal [facility] tumor, [place] [address] Social History Tobacco Use Types Packs/Day Years [...] documented as of this encounter Progress Notes Rosario Frausto RD - 04/18/2020 2:30 PM EST Mary Kay Gonzalez??is a 59 y.o.??year old female??with a past medical history of??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 She was discharged on but readmitted readmitted with??abdominal pain, nausea and emesis which correspondedwith discontinuing Reglan. She was discharged on cyclic enteral feedings and Reglan. Mary Kay gradually reduced her Reglan/and has discontinued completely. Last week when I called, we reduced enteral feedings by half--2 units of Peptamen AF at 70 ml/hour over 7 hours. This provides 600 kcals/day. Wt Readings from Last 3 Encounters: 03/29/20 47.1 kg (103 lb 14.4 oz) 03/21/20 47.4 kg (104 lb 9.6 oz) 03/20/20 47.6 kg (105 lb) A/P: I missed Mary Kay in surg onc clinic today--she was seen earlier by Dr Galdamez. She reports feelingvery well now and enjoying a healthy appetite as well--enjoys eating again. Denies post prandial discomfort. Bowel movements are regular. She maintains on Creon 24: most often 2 with meal, occas 3 with meals. Weight is stable at 109 pounds. She is walking her dog an hour a day. We discussed plan that she will continue with every other night enteral support but will discontinueon 04/25/20. She will see Dr Galdamez on 05/02/20 to hopefully remove jtube. I added 3 mos post mckenna labs/external order for [facility] week of May 21, 2019. Recommend again at 6 mos and at annual post mckenna visit. ?? documented in this encounter Plan of Treatment Upcoming Encounters Date Type Specialty Care Team Description 02/15/2022 Office Visit Hematology and Oncology Morris Dozier MD [facility] [place], [place] [address] (Wo rk) documented as of this encounter Goals Goal Patient Goal Associated Recent Patient-Stated? Author Type Problems Progress DH Home Medication Patient No Tamera calvillo, Compliance and Facing Brandt Morin, Understanding Action Plan [facility] Note: Formatting of this note might be d ifferent from the original. Remain 95% adherent to Imatinib therapy without significant neutropenia as assessed by CBC labs in clinic every 1 to 3 months documented as of this encounter Visit Diagnoses Diagnosis Malignant gastrointestinal stromal tumor , unspecified site documented in this encounter Care Teams Door Worker Relationship Specialty Start Date End Date Irving Wheeler MD PCP - General 06/23/[address] [place] [id number] documented as of this encounter
--- OUTSIDE RECORDS SUMMARY | 2022-02-01 00:25 | XMS_ITS | Encounter Summary ---
:1960 Author Organization [facility] [place] [address] Care Team Providers Name Role Phone Irving Wheeler MD Primary Care Provider [phone] Encounter Details Date Type Department Care Team Description 04/03/2020 Telephone Hematology and Oncology [place] [address] Social History Tobacco Use Types Packs/Day [...] Telephone Encounter - Rosario Frausto RD - 04/03/2020 8:27 AM EST ?? 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 CT scan showed a massively dilated stomach mostlikely due to gastroparesis after discontinuation of her Reglan. NGT has been placed for decompression and reglan has been restarted. Mary Kay was then discharged on March 29, 2020. ?? She was discharged home on following enteral feedings: 70ml/hour Peptamen AF over 18 hours to provide 1512 kcals and 96 grams protein/ off 12 noon to 6pm. Per Mary Kay, enteral feedings are taking about 16 hours/she is providing 5 units Peptamen AF/night and they run until about 1030am/11am. Soft boiled eggs, toast with butter The other morning, scram eggs with sauteed mushrooms, and two slices of toast with butter. Hot dogs last pm with toast 2-3 rice cakes with cashew butter Denies nausea or vomiting or post prandial discomfort. Though did experience discomfort/bloating on Friday after consuming 3-4 rice cakes with cashew butter and had forgotten to dose Creon. Short walks after meals have helped her. She is consuming most reliably 3 meals a day. Appetite is ok. Dosing Reglan four times a day, inquires if once she is ready to wean off of this, could she do so incrementally ie reduce gradually. Bowels moving normally once daily, no issues. Recommend reduce enteral feedings by one unit of Peptamen AF--recommend 4 units of Peptamen AF at 70ml/hour over 14.2 hours. This provides 1200 kcals/day. Mary Kay will continue with efforts with eating - will work towards adding snacks in between meals. Mary Kay remains on Reglan as prescribed by Dr Galdamez. Once she discontinues Reglan, she wishes to so so gradually. documented in this encounter Plan of Treatment Upcoming Encounters Date Type Specialty Care Team Description 02/15/2022 Office Visit Hematology and Oncology Morris Dozier MD [facility] ONCOLOGY [place] [id number] (Wo rk) documented as of this encounter Goals Goal Patient Goal Associated Recent Patient-Stated? Author Type Problems Progress DH Home Medication Patient No Tamera calivllo, Compliance and Facing Brandt Morin Understanding Action Plan [facility] Note: Formatting of this note might be d ifferent from the original. Remain 95% adherent to Imatinib therapy without significant neutropenia as assessed by CBC labs in clinic every 1 to 3 months documented as of this encounter Visit Diagnoses Not on filedocumented in this encounter Care Teams Fountain Roller Assembler Relationship Specialty Start Date End Date Irving Wheeler MD PCP - General 06/23/[address] [place] [phone] documented as of this encounter
--- OUTSIDE RECORDS SUMMARY | 2022-02-01 00:25 | XMS_ITS | Encounter Summary ---
:1960 Author Organization [facility] [place] [address] Care Team Providers Name Role Phone Irving Wheeler MD Primary Care Provider [phone] Reason for Visit Reason Onset Date Comments Labs Only 08/11/2020 Lab tracking Encounter Details Date Type Department Care Team Description 08/11/2020 Telephone Hematology Oncology at [facility], Labs Only (Lab [facility] RN tracking) [address] [place] [phone] Social History Tobacco Use Types Packs/Day [...] Telephone Encounter - Katherin [facility]ona, RN - 08/11/2020 1:47 PM EDT LAB TRACKING Jen Farmer [id number] 1960 ?? 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 LABS ORDERED: cbc diff ?? MEDICATIONS: Imatinib 100mg daily Assessment/Plan: Will stay at 100 mg imatinib daily. We will now check CBC every 2 weeks at [facility].Next FUV on 08/25 with CBC, CMP. Results for JEN FARMER ( ) as of 08/11/2020 13:54 Ref. Range 07/14/2020 00:00 07/28/2020 00:00 08/11/2020 00:00 WBC Unknown 3.4 3.6 3.4 Hemoglobin Unknown 12.3 12.9 12.8 Hematocrit Unknown 38.0 40.0 39.0 Platelets Unknown 196 233 210 Neutr Abs (ANC) Unknown 1.85 2.2 2.02 documented in this encounter Plan of Treatment Upcoming Encounters Date Type Specialty Care Team Description 02/15/2022 Office Visit Hematology and Oncology Morris Dozier MD [facility] DR ONCOLOGY [place] [address] (Wo rk) documented as of this encounter [...] Diagnosis Comme nts CBC (WITH DIFF) Routine 08/11/2020 Results for this procedure are in the resu lts section. documented in this encounter Results CBC (with Diff) (08/11/2020) P athologist Signature WBC 3.4 Hemoglobin 12.8 Hematocrit 39.0 Platelets 210 Neutr Abs (ANC) 2.02 Specimen (Source) Anatomical Location Collection Method / Collectio n Time Received Time / Laterality Volume Blood 08/11/2020 Morris Dozier MD HEMATOLOGY ORDERABLES documented in this encounter Visit Diagnoses Not on filedocumented in this encounter Care Teams Health Claims Examiner Relationship Specialty Start Date End Date Irving Wheeler MD PCP - General 06/23/19 [address] [place] [address] documented as of this encounter
--- OUTSIDE RECORDS SUMMARY | 2022-02-01 00:25 | XMS_ITS | Encounter Summary ---
:1960 Author Organization [place] [address] Care Team Providers Name Role Phone Irving Wheeler MD Primary Care Provider [phone] Encounter Details Date Type Department Care Team Description 04/12/2020 Tech Visit Pharmacy [place] [facility] [place] [place], [place] [address] Social History Tobacco Use Types Packs/Day [...] Dozier MD [facility] ONCOLOGY [place], [place] [address] (Wo rk) documented as of [...] on filedocumented in this encounter Care Teams Identity Access Management Architect Relationship Specialty Start Date End Date Irving Wheeler MD PCP - General 06/23/[address] [place] [id number] documented as of this encounter
--- OUTSIDE RECORDS SUMMARY | 2022-02-01 00:25 | XMS_ITS | Encounter Summary ---
:1960 Author Organization [facility] [place] [address] Care Team Providers Name Role Phone Irving Wheeler MD Primary Care Provider [phone] Encounter Details Date Type Department Care Team Description 04/27/2020 TH Visit Hematology and Morris Dozier (TeleHealth) Oncology at [facility] MD Angel (gastrointestinal [facility]) [facility] DR small bowel, [place], [place] ONCOLOGY malignant [id number] [place] [address] [phone] Social History Tobacco Use Types Packs/Day Years [...] as of this encounter Progress Notes Morris Dozire MD - 04/27/2020 10:00 AM EST Subjective: Patient ID: Mary Kay Gonzalez is a 59 y.o. female. Problem List: [...] of resection specimen. 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 Discussed at GI [...] does not invade the pancreas. 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 On 02/23/20 she underwent a Whipple procedure with resection of the duodenal GIST, path report above. This is a telephone encounter. She is feeling well, without new complaints. She has stopped the TFs and is eating well. She is looking forward to having the feeding tube removed next week. No nausea orvomiting and no abdominal bloating or discomfort. Her bowels are regular. She is taking Creon with meals. No fevers or chills. Her energy level and strength are good. Soc Hx:Divorces, lives in [place], [place] Tob - Quit in mid Etoh - none recently. 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 Fam Hx: Father - at [...] normal. Thought Content: Thought content normal. Labs: WBC/ANC - 4.11/2809, Hgb/Hct - 10.9/35, Plts - 276,000, MCV - 93.2. Retic - , Iron - , TIBC - , B12 - , Folate - Assessment and Plan: Ms. Gonzalez is a [...] day on 12/31/19. She was hospitalized at [facility] from 01/31 to 02/04/20. She had presented [...] She is recovering well from the surgery. Our plan is to start the imatinib at 100 mg per day. She isgoing to wait until after the holiday to start it. I will plan to check the cbc weekly to start and will see her in three weeks. I had asked that other labs be checked, includng retic count, iron tests, B12 and folate, due to the anemia. Those were not drawn but she will plan to get them drawn tomorrow. I provided care to the patient today via telephone call. The total time associated with this visit was 15 minutes. documented in this encounter Plan of Treatment Upcoming Encounters Date Type Specialty Care Team Description 02/15/2022 Office Visit Hematology and Oncology Morris Dozier MD [facility] DR ONCOLOGY [place], [place] [address] (Wo rk) documented as of this encounter Goals Goal Patient Goal Associated Recent Patient-Stated? Author Type Problems Progress DH Home Medication Patient No Tamera calvillo, Compliance and Facing Brandt Morin, Understanding Action Plan [facility] Note: Formatting of this note might be d ifferent from the original. Remain 95% adherent to Imatinib therapy without significant neutropenia as assessed by CBC labs in clinic every 1 to 3 months documented as of this encounter Visit Diagnoses Diagnosis GIST (gastrointestinal stromal tumor) of small bowel, malignant documented in this encounter Care Teams Spray Rig Operator Relationship Specialty Start Date End Date Irving Wheeler MD PCP - General 06/23/[address] [place] [id number] documented as of this encounter
--- OUTSIDE RECORDS SUMMARY | 2022-02-01 00:25 | XMS_ITS | Encounter Summary ---
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 She was discharged on but readmitted readmitted with??abdominal pain, nausea and emesis which correspondedwith discontinuing Reglan. She was discharged on cyclic enteral feedings and Reglan. Called Mary Kay to check in on enteral feedings, oral intake and weight. Per Mary Kay, she is gaining a pound or two every other day. Weight at 109.0 pounds today and last Friday 106.0 pounds. She did have one episode of intense pain on Friday evening following a meal- she is unsure why as she consumed usual foods she had been tolerating previously ie Leftover turkey, peas, gravy followed by a smoothie (frozen anderson). She was able to apply heat, lie down, listen to music all helped to eventually relieve her pain. She is encouraged by an increase in appetite as well as ability to tolerate larger volume meals. Food feels good again--ie senses the warmth in her stomach after consuming a cup of tea. She is eating three times a day, always hungry when she wakes up now-- 2 egg Omelette,2 slices toast/loaf of fresh bread with butter, cheese, orange or small yogurt Smaller lunch: nibbling on turkey and mashed potatoes or can sardines Rice cakes with peanut butter or avocado or banana Evening : two cups of of stew or soup/ typically meat/hearty stew, with bread Encouraged by appetite and increased volume. She feels that generally she could eat more, but cautious not to over eat. Cyclic nocturnal enteral feedings of peptamen AF at 70ml/hour, providing 4 units/night or 1200 kcals. Walking dog one hour most days of the week-Mary Kay reports feeling increased strength. Plan: 1. Recommend reduce enteral feedings by half--recommend 2 units of Peptamen AF at 70 ml/hour over 7 hours. This provides 600 kcals/day. ?? 2. Mary Kay remains on Reglan as prescribed by Dr Galdamez. She spoke with Britany Villanueva APRN about slowly tapering off of Reglan and plan is that she will be off of Reglan completely by Friday. 3. Creon 24: reinforced dosing and timing with meals--Mary Kay is dosing 2 with meals most often and occasionally 3 with meals. Recommend increase to 3 with meals particularly bfast and evening meal. ?? documented in this encounter Plan of Treatment Upcoming Encounters Date Type Specialty Care Team Description 02/15/2022 Office Visit Hematology and Oncology Morris Dozier MD [facility] DR ONCOLOGY [place], [place] [address] (Wo rk) documented as of this encounter Goals Goal Patient Goal Associated Recent Patient-Stated? Author Type Problems Progress DH Home Medication Patient No Tamera calvillo, Compliance and Facing Brandt Morin, Understanding Action Plan [facility] Note: Formatting of this note might be d ifferent from the original. Remain 95% adherent to Imatinib therapy without significant neutropenia as assessed by CBC labs in clinic every 1 to 3 months documented as of this encounter Visit Diagnoses Not on filedocumented in this encounter Care Teams Plans Examiner Relationship Specialty Start Date End Date Irving Wheeler MD PCP - General 06/23/[address] [place] [address] documented as of this encounter
--- OUTSIDE RECORDS SUMMARY | 2022-02-01 00:25 | XMS_ITS | Encounter Summary ---
:1960 Author Organization [facility] [place] [address] Care Team Providers Name Role Phone Irving Wheeler MD Primary Care Provider [phone] Reason for Visit Reason Onset Date Comments Labs Only 06/23/2020 Lab Tracking Encounter Details Date Type Department Care Team Description 06/23/2020 Telephone Hematology/Oncology at Katherin Corona, Labs Only (Lab [facility] RN Tracking) [address] [place] [phone] Social History Tobacco Use Types Packs/Day [...] Telephone Encounter - Katherin Corona, RN - 06/23/2020 3:05 PM EST LAB TRACKING Jen Farmer [id number] 1960 ?? 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 LABS ORDERED: cbc diff ?? MEDICATIONS: Imatinib 100mg daily Assessment/Plan: Will stay at 100 mg imatinib daily. Continue weekly CBC at [facility]. Next FUV on 07/14with CBC, CMP, Iron/TIBC, Ferritin prior. She is in agreement with plan. Results for JEN FARMER ( ) as of 06/23/2020 15:07 Ref. Range 06/09/2020 00:00 06/16/2020 00:00 06/23/2020 00:00 WBC Latest Ref Range: 4.8 - 10.8 3.3 (A) 3.7 3.0 (A) Hemoglobin Unknown 12.2 12.5 12.8 Hematocrit Unknown 38.0 39.0 40.0 Platelets Unknown 248 243 221 Neutr Abs (ANC) Unknown 1.76 2.42 1.66 documented in this encounter Plan of Treatment Upcoming Encounters Date Type Specialty Care Team Description 02/15/2022 Office Visit Hematology and Oncology Morris Dozier MD [facility] DR ONCOLOGY [place], [place] [address] (Wo rk) documented as of [...] Diagnosis Comme nts CBC (WITH DIFF) Routine 06/23/2020 Results for this procedure are in the resu lts section. documented in this encounter Results (ABNORMAL) CBC (with Diff) (06/23/2020) athologist Signature WBC 3.0 (A) 4.8 - 10.8 Hemoglobin 12.8 Hematocrit 40.0 Platelets 221 Neutr Abs (ANC) 1.66 Specimen (Source) Anatomical Location Collection Method / Collectio n Time Received Time / Laterality Volume Blood 06/23/2020 Morris Dozier MD HEMATOLOGY ORDERABLES documented in this encounter Visit Diagnoses Not on filedocumented in this encounter Care Teams Noc Engineer Relationship Specialty Start Date End Date Irving Wheeler MD PCP - General 06/23/19 [address] [place] [address] documented as of this encounter
--- OUTSIDE RECORDS SUMMARY | 2022-02-01 00:25 | XMS_ITS | Encounter Summary ---
:1960 Author Organization [facility] [place] [address] Care Team Providers Name Role Phone Irving Wheeler MD Primary Care Provider [phone] Reason for Visit Reason Comments Follow-up Encounter Details Date Type Department Care Team Description 09/04/2020 [facility] MD Gurwinder [facility] [address] [place], [place] GENERAL SURGERY [address] [place] [address] [phone] (Wo rk) Social History Tobacco Use Types [...] Sign Reading Time Taken Comments Blood Pressure 95/55 09/04/2020 2:27 PM EDT Pulse 64 09/04/2020 2:27 PM EDT Temperature 36.3 ??C (97.4 ??F) 09/04/2020 2:27 PM EDT Respiratory Rate 16 09/04/2020 2:27 PM EDT Oxygen Saturation 100% 09/04/2020 2:27 PM EDT Inhaled Oxygen Concentration - - Weight 50.4 kg (111 lb 1.6 oz) 09/04/2020 2:27 PM EDT Height - - Body Mass Index 19.13 08/25/2020 2:38 PM EDT documented in this encounter Progress Notes Emely Galdamez MD - 09/04/2020 2:30 PM EDT Surgical Oncology Office Note Date: 09/04/2020 Primary physician: Irving Wheeler MD Referring physician: Pedrito Arrieta MD Reason for evaluation: Open whipple on 02/23/2020 for locally advanced duodenal GIST s/p Imatinib c/b neutrapenic fevers Interval History: Mrs. Gonzalez is now a 60 year old woman from [place], [place]. She presented with several months history of nausea and then vomiting to the [facility] ED with a work-up described below. 11/22/2019 CT abdomen and pelvis ([facility]). 11/25/[address] Arrieta with [...] passes were made with the 22 gauge Petco biopsy needle using a transduodenal approach. A [...] recommendations. 11/25/2019 EUS FNA cytopathology per Acc# [id number] showed Neoplastic Cells Present. Consistentwith g astrointestinal [...] and then eventually she presented to the [facility] ED with a hemoglobin of 8.5. She [...] therefore quite straightforward. Her pancreas was completely rfrdit-sexwfkkqu-isfh gland and small duct approximately 1 mm indiameter. We elected to stent the pancreatic anastomosis using an externalized 5 Cymraes pancreatic duct stent which was passed approximately 10 cm down into the pancreatic remnant body and tail. A 19 Cymraes Jimmy drain was placed in through a right lateral stab incision and passed posterior to the bile duct anastomosis and then anterior to the pancreatic anastomosis. We created an omental pedicle flap from the falciform ligament and used this to cover the korin hepatis dissection. A 12 Cymraes feeding jejunostomy tube was placed approximately 30 [...] VNA and TF services. ?? Medications: ??? multivitamin (THERAGRAN) Tablet ??? imatinib (GLEEVEC) chemo tablet ??? omeprazole (PriLOSEC) 40 mg Capsule, Delayed Release(E.C.) ??? acetaminophen (Tylenol) 500 mg Tablet ??? mmaqkz-akqzrgqh-dtvjuzw DR (Creon 24) 24,000-76,000 -120,000 unit Capsule, Delayed Release(E.C.) ??? ferrous sulfate (IRON ORAL) ??? cholecalciferol, Vitamin D3, 50 mcg (2,000 unit) Capsule Laboratory studies: None to review Pathology: 02/23/2020 Acc# [id number] Surgical Pathology DIAGNOSIS A. 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 Common hepatic artery lymph node, excision: - One benign lymph node (0/1) - Unremarkable pancreatic tissue Electronically signed by: Judah Estrada MD Verified: 03/01/2020 Dermatopathologist, Bone & Soft Tissue Pathologist Performed at: -[facility] Dept. of Pathology, [place], [place] SY[employer] Clinical Preresection Treatment: Systemic therapy [...] Tumor Block(s): A7-A19 Normal Block(s): A20 CAP [facility] June 2019 Annual Release Objective: Vitals: 03/20/2020 she weighed 105 pounds. Her weight [...] comes into the surgery clinic today for a 6-month post Whipple follow-up appointment. She has been followed closely by Dr. Dozier who has been prescribing adjuvant Gleevec but in the reduced dose setting giving her neoadjuvant Gleevec back toxicity with neutropenia at the 400 mg dose. She has been doing well on the [address] scan on 07/26/2019 showed no evidence of recurrent disease per Dr. Dozier's notes. She really seems to be doing quite well. No obstructive symptoms. No reflux. Normal bowel movements.No steatorrhea or diarrhea symptoms. She has been taking the Creon as prescribed and we discussed a plan for her after she meets with Rosario to consider stopping Creon to see if she develops symptomsof pancreatic exocrine insufficiency. Rosario will really weigh in on this decision and will spend more time with her discussing her dietary intake and symptoms. I will look forward to seeing Ann back in February for her 1 year post Whipple follow-up appointment and will defer all the surveillance CT imaging and blood work to Dr. Dozier. It is great to see that she is doing so well and no evidence of recurrence. I suspect they will try to go up slowly on theGleevec to a 200 mg dose per day depending upon her blood counts. Rosario nutritional ordered labs which I will cosign for today. Reid Galdamez MD 09/04/2020 This note was created using [employer] voice recognition software. documented in this encounter Plan of Treatment Upcoming Encounters Date Type Specialty Care Team Description 02/15/2022 Office Visit Hematology and Oncology Morris Dozier MD [facility] DR ONCOLOGY [place], [place] [address] (Wo rk) documented as of this encounter Goals Goal Patient Goal Associated Recent Patient-Stated? Author Type Problems Progress DH Home Medication Patient No Rozols [place], Compliance and Facing Brandt Morin, Understanding Action Plan [facility] Note: Formatting of this note might be d ifferent from the original. Remain 95% adherent to Imatinib therapy without significant neutropenia as assessed by CBC labs in clinic every 1 to 3 months documented as of this encounter Visit Diagnoses Diagnosis Exocrine pancreatic insufficiency Other specified disease of pancreas documented in this encounter Care Teams Labour Market Economist Relationship Specialty Start Date End Date Irving Wheeler MD PCP - General 06/23/19 [address] [place] [address] documented as of this encounter
--- OUTSIDE RECORDS SUMMARY | 2022-02-01 00:25 | XMS_ITS | Encounter Summary ---
:1960 Author Organization [facility] [place] [address] Care Team Providers Name Role Phone Irving Wheeler MD Primary Care Provider [phone] Reason for Visit Reason Onset Date Comments Labs Only 07/07/2020 Lab Tracking Encounter Details Date Type Department Care Team Description 07/07/2020 Telephone Hematology/Oncology at Katherin Corona, Labs Only (Lab [facility] RN Tracking) [address] [place] [phone] Social History Tobacco Use Types Packs/Day [...] Telephone Encounter - Katherin Corona, RN - 07/07/2020 4:12 PM EST LAB TRACKING Jen Farmer [id number] 1960 ?? 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 LABS ORDERED: cbc diff ?? MEDICATIONS: Imatinib 100mg daily Assessment/Plan: Will stay at 100 mg imatinib daily. Continue weekly CBC at [facility]. Next FUV on 07/14with CBC, CMP, Iron/TIBC, Ferritin prior. She is in agreement with plan. Results for JEN FARMER ( ) as of 07/07/2020 16:15 Ref. Range 06/23/2020 00:00 06/30/2020 00:00 07/07/2020 00:00 WBC Unknown 3.0 (A) 3.5 (A) 3.6 Hemoglobin Unknown 12.8 12.9 13.2 Hematocrit Unknown 40.0 39.0 41.0 Platelets Unknown 221 211 235 Neutr Abs (ANC) Unknown 1.66 1.57 2.01 documented in this encounter Plan of Treatment Upcoming Encounters Date Type Specialty Care Team Description 02/15/2022 Office Visit Hematology and Oncology Morris Dozier MD [facility] DR ONCOLOGY [place] [address] (Wo rk) documented as of this encounter Goals Goal Patient Goal Associated Recent Patient-Stated? Author Type Problems Progress DH Home Medication Patient No Tamera calvillo, Compliance and Facing Brandt Morin, Understanding Action Plan [facility] Note: Formatting of this note might be d ifferent from the original. Remain 95% adherent to Imatinib therapy without significant neutropenia as assessed by CBC labs in clinic every 1 to 3 months documented as of this encounter Procedures Procedure Name Priority Date/Time Associated Diagnosis Comme nts CBC (WITH DIFF) Routine 07/07/2020 Results for this procedure are in the resu lts section. documented in this encounter Results CBC (with Diff) (07/07/2020) P athologist Signature WBC 3.6 Hemoglobin 13.2 Hematocrit 41.0 Platelets 235 Neutr Abs (ANC) 2.01 Specimen (Source) Anatomical Location Collection Method / Collectio n Time Received Time / Laterality Volume Blood 07/07/2020 Morris Dozier MD HEMATOLOGY ORDERABLES documented in this encounter Visit Diagnoses Not on filedocumented in this encounter Care Teams Door Hanger Relationship Specialty Start Date End Date Irving Wheeler MD PCP - General 06/23/19 [address] [place] [address] documented as of this encounter
--- OUTSIDE RECORDS SUMMARY | 2022-02-01 00:25 | XMS_ITS | Encounter Summary ---
:1960 Author Organization [facility] [place] [address] Care Team Providers Name Role Phone Irving Wheeler MD Primary Care Provider [phone] Encounter Details Date Type Department Care Team Description 08/25/2020 Office Visit Hematology/Oncology Morris Dozier, GI ST (gastrointestinal at [facility] MD stromal tumor) of [address] [place] [address] small [place], [place] [address] ONCOLOGY [phone] [place], [place] [address] Social History Tobacco Use Types Packs/Day Years [...] Sign Reading Time Taken Comments Blood Pressure 115/57 08/25/2020 2:38 PM EDT Pulse 84 08/25/2020 2:38 PM EDT Temperature 36.2 ??C (97.2 ??F) 08/25/2020 2:38 PM EDT Respiratory Rate 20 08/25/2020 2:38 PM EDT Oxygen Saturation 99% 08/25/2020 2:38 PM EDT Inhaled Oxygen Concentration - - Weight 49.6 kg (109 lb 6.4 oz) 08/25/2020 2:38 PM EDT Height 162.3 cm (5' 3.9) 08/25/2020 2:38 PM EDT Body Mass Index 18.84 08/25/2020 2:38 PM EDT documented in this encounter Progress Notes Morris Dozier MD - 08/25/2020 2:30 PM EDT Subjective: Patient ID: Jen Farmer is [...] of resection specimen. Molecular studies - KIT [id number] del, exon 11 C. Discussed at GI [...] at 100 mg per day on 05/07/20. H. CT c/a/p 07/25/20 - IMPRESSION: Postoperative changes as above. No evidence of local recurrence or metastatic disease in the chest,abdomen and pelvis. HPI Jen Farmer is seen in f/u of small bowel GIST. On 02/23/20 she underwent a Whipple procedure with resection of the duodenal GIST, path report above. Restarted imatinib at 100 mg per day on 05/07/20 She is feeling well. She received her second covid 19 vaccine shot on 08/12/20. The day after she had a headache and fatigue. She felt better after that. She has continued the imatinib at 100 mg per day and has tolerated that well. No fevers. She has had some discomfort in the right flank area. It is not tender to touch but worse if she moves a certain way or takes a deep breath. No SOB or cough. No nausea or vomiting and no abd pain or discomfort. Her appetite is good and she is eating well. Her weight is in the same range that it has been recently. She has not eaten today because she has been busy,including working. Her energy level is good. Her bowels are regular. She is taking Creon with meals,about 3 per day. Soc Hx:Divorces, lives in [place], [place] Tob - Quit in mid Etoh - none recently. 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 Fam Hx: Father - at [...] 00:00 07/07/2020 00:00 07/14/20 07/28/20 08/11/20 08/25/20 WBC Unknown 3.0 (A) 3.5 (A) 3.6 3.4 3.6 3.4 6.0 Hemoglobin Unknown 12.8 12.9 13.2 12.3 12.9 12.8 12.8 Hematocrit Unknown 40.0 39.0 41.0 38 40 39 40 Platelets Unknown 221 211 235 196 210 232 Neutr Abs (ANC) Unknown 1.66 1.57 2.01 1830 2200 1970 3800 ?? (08/25/20): CBC above. BUN/Cr - 13/0.62. Na [...] day on 12/31/19. She was hospitalized at [facility] from 01/31 to 02/04/20. She had presented [...] that, but stable and ok to continue. A restaging CT scan was done on 07/25/20. There was no evidence of disease. We have talked about trying to increase the dose of the imatinib. We had decided not to make any change until after the second shot. She received the second Covid 19 vaccine shot on 08/12/20. After discussion, we have decided to hold off on making a change until we recheck things again in two weeks. documented in this encounter Plan of Treatment Upcoming Encounters Date Type Specialty Care Team Description 02/15/2022 Office Visit Hematology and Oncology Morris Dozier MD [facility] ON[facility]OGY [place], [place] [address] (Wo rk) documented as of [...] malignant documented in this encounter Care Teams Seo Marketing Specialist Relationship Specialty Start Date End Date Irving Wheeler MD PCP - General 06/23/[address] [place] [phone] documented as of this encounter
--- OUTSIDE RECORDS SUMMARY | 2022-02-01 00:25 | XMS_ITS | Encounter Summary ---
:1960 [place] [address] Care Team Providers Name Role Phone Irving Wheeler MD Primary Care Provider [phone] Reason for Visit Reason Comments Medication Management Patient Education Encounter Details Date Type Department Care Team Description 04/24/2020 Specialty Pharmacy Pharmacy at [facility] Marielena Anaya RPH Managem ent; [place] [id number] Social History Tobacco Use Types Packs/Day Years [...] encounter Progress Notes Marielena Galdamez RPH - 04/24/2020 9:40 AM EST Specialty Pharmacy Consultation; Marielena Galdamez RPH Comprehensive Medication Management (CMM): Specialty Consult, Opt Out Mary Kay Gonzalez Diagnosis: GIST Therapy Start Date: 01/01/20 Contact in person or via telephone:phone Ms. Mary Kay Gonzalez is a 59 y.o. (1960) female who was contacted in regard to specialty medication. Spoke with patient regarding Imatinib. A review of the medication therapy was performed. The medication was refill as scheduled, and all medication related questions and concerns were addressed. Themission hospital pharmacy staff will follow up with the patient 7 days prior to next refill. Is the patient willing to proceed with the Clinical Assessment? No Summary and Recommendations: The patient was feeling well today and had no questions or concerns about restarting her therapy atthe new, lower dose. We reviewed allergies, med list, contact information, safe handling, and possible side effects. The medication will be mailed out for a $0 copay as soon as possible. Economic Assessment: Patient is agreeable to medication copay: Yes Copay Amount: $0 Day Supply: 30 Date Needed: 04/26/20 Therapy Assessment: Appropriate Therapy: Yes Current Medication [...] packet: Yes Date to be provided: 01/31/20 mailed -Patient is aware a licensed [...] review and follow up. Marielena Galdamez RPH 04/24/20 10:00 AM documented in this encounter Plan of Treatment Upcoming Encounters Date Type Specialty Care Team Description 02/15/2022 Office Visit Hematology and Oncology Morris Dozier MD [facility] ONCOLOGY [place], [place] [address] (Wo rk) documented as of [...] on filedocumented in this encounter Care Teams House Mover Supervisor Relationship Specialty Start Date End Date Irving Wheeler MD PCP - General 06/23/[address] [place] [address] documented as of this encounter
--- OUTSIDE RECORDS SUMMARY | 2022-02-01 00:25 | XMS_ITS | Encounter Summary ---
:1960 Author Organization [facility] [place] [address] Care Team Providers Name Role Phone Irving Wheeler MD Primary Care Provider [phone] Reason for Visit Reason Onset Date Comments Labs Only 08/25/2020 Lab tracking Encounter Details Date Type Department Care Team Description 08/25/2020 Telephone Hematology/Oncology at [facility], Labs Only (Lab [facility] RN tracking) [address] [place] [phone] Social History Tobacco Use Types Packs/Day [...] Telephone Encounter - [facility]atherin Corona, RN - 08/25/2020 2:58 PM EDT LAB TRACKING Jen Farmer [id number] 1960 ?? 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 LABS ORDERED: cbc diff ?? MEDICATIONS: Imatinib 100mg daily Assessment/Plan: Will stay at 100 mg imatinib daily. We will now check CBC every 2 weeks at [facility].Next FUV telephone visit on 09/08 with CBC, CMP. Results for JEN FARMER ( ) as of 08/25/2020 15:00 Ref. Range 07/28/2020 00:00 08/11/2020 00:00 08/25/2020 00:00 WBC Unknown 3.6 3.4 6.0 Hemoglobin Unknown 12.9 12.8 12.8 Hematocrit Unknown 40.0 39.0 40 Platelets Unknown 233 210 232 Neutr Abs (ANC) Unknown 2.2 2.02 3.86 documented in this encounter Plan of Treatment Upcoming Encounters Date Type Specialty Care Team Description 02/15/2022 Office Visit Hematology and Oncology Morris Dozier MD [facility] DR ONCOLOGY [place], [place] [address] (Wo rk) documented as of this encounter Goals Goal Patient Goal Associated Recent Patient-Stated? Author Type Problems Progress DH Home Medication Patient No Tamera calvillo, Compliance and Facing Brandt Morin Understanding Action Plan [facility] Note: Formatting of this note might be d ifferent from the original. Remain 95% adherent to Imatinib therapy without significant neutropenia as assessed by CBC labs in clinic every 1 to 3 months documented as of this encounter Procedures Procedure Name Priority Date/Time Associated Diagnosis Comme nts CBC (WITH DIFF) Routine 08/25/2020 Results for this procedure are in the resu lts section. documented in this encounter Results CBC (with Diff) (08/25/2020) P athologist Signature WBC 6.0 Hemoglobin 12.8 Platelets 232 Neutr Abs (ANC) 3.86 Specimen (Source) Anatomical Location Collection Method / Collectio n Time Received Time / Laterality Volume Blood 08/25/2020 Morris Dozier MD HEMATOLOGY ORDERABLES documented in this encounter Visit Diagnoses Not on filedocumented in this encounter Care Teams Dean [employer] Chapel Relationship Specialty Start Date End Date Irving Wheeler MD PCP - General 06/23/19 [address] [place] [address] documented as of this encounter
--- OUTSIDE RECORDS SUMMARY | 2022-02-01 00:25 | XMS_ITS | Encounter Summary ---
:1960 Author Organization [facility] Address [facility] [place] [address] Care Team Providers Name Role Phone Irving Wheeler MD Primary Care Provider Reason for Visit Reason Onset Date Comments Medication Refill 04/21/2020 New oral chemo scrip t/ dose change Encounter Details Date Type Department Care Team Description 04/21/2020 Telephone Hematology/Oncology at [facility], Medication Refill ([facility] RN oral chemo script/ dose [address] change) [place] [phone] Social History Tobacco Use Types Packs/Day Years [...] Telephone Encounter - Katherin Corona RN - 04/21/2020 1:38 PM EST Oral Chemotherapy Check Note 04/21/2020 Mary Kay Lisa, 1960 Prescriptions for oral chemotherapy were reviewed as follows: Oral Chemotherapy Order imatinib (GLEEVEC) chemo tablet: Order details: ?? Dose: 100mg ?? Route: Oral ?? Quantity to be dispensed #: 30 doses ?? Number of refills: 3 ?? Instructions: Take 100 mg by mouth daily. Take with food and a large glass of water to decrease stomach irritation. Call clinic before starting medication. ?? Start date: Tentative 04/27 after next phone visit with Dr. Dozier Plan of care compared to information in the medical record, including note from provider on 04/21/20. The prescription was found to be complete and accurate. It was printed, reviewed and signed by provider and manually faxed to specialty pharmacy. documented in this encounter Plan of Treatment Upcoming Encounters Date Type Specialty Care Team Description 02/15/2022 Office Visit Hematology and Oncology Morris Dozier MD [facility] DR ONCOLOGY [place] [address] (Wo rk) documented as of this encounter Goals Goal Patient Goal Associated Recent Patient-Stated? Author Type Problems Progress DH Home Medication Patient No Rovinicio calvillo, Compliance and Facing Brandt oMrin, Understanding Action Plan [facility] Note: Formatting of this note might be d ifferent from the original. Remain 95% adherent to Imatinib therapy without significant neutropenia as assessed by CBC labs in clinic every 1 to 3 months documented as of this encounter Visit Diagnoses Not on filedocumented in this encounter Care Teams Auto Body Painter Relationship Specialty Start Date End Date Irving Wheeler MD PCP - General 06/23/[address] [place] [address] documented as of this encounter
--- OUTSIDE RECORDS SUMMARY | 2022-02-01 00:25 | XMS_ITS | Encounter Summary ---
:1960 Author Organization [facility] [place] [address] Care Team Providers Name Role Phone Irving Wheeler MD Primary Care Provider [phone] Encounter Details Date Type Department Care Team Description 06/22/2020 Orders Only [facility] Cov id, Eligible [facility] [place] [address] Social History Tobacco Use Types Packs/Day [...] Oncology Morris Dozier MD [facility] ONCOLOGY [place], [place] [address] (Wo rk) documented as of [...] on filedocumented in this encounter Care Teams Legal Support Specialist Relationship Specialty Start Date End Date Irving Wheeler MD PCP - General 06/23/[address] [place] [address] documented as of this encounter
--- OUTSIDE RECORDS SUMMARY | 2022-02-01 00:25 | XMS_ITS | Encounter Summary ---
:1960 Author Organization [facility] [place] [address] Care Team Providers Name Role Phone Irving Wheeler MD Primary Care Provider [phone] Encounter Details Date Type Department Care Team Description 04/12/2020 Telephone Pharmacy at [facility] Casandra [place] [address] Social History Tobacco Use Types Packs/Day [...] this encounter Miscellaneous Notes Telephone Encounter - Casandra Hunt CPHT - 04/12/2020 4:30 PM EST Clinical Management Plan: Refill Specialty Pharmacy Consultation; Casandra Hunt CPHT Comprehensive Medication Management (CMM) Mary Kay Manciay Ms. Mary Kay Gonzalez is a 59 y.o. (1960) female who was contacted in regard to a specialty medication refill reminder. Spoke with patient regarding Creon. A review of the medication therapy was performed. The medication was refilled as scheduled, and all medication related questions and concerns were addressed. The specialty pharmacy staff will follow up with the patient 5-7 days prior to next refill. Was a change made to the Care Plan: No Allergies and Drug intolerance: No Known Allergies Medication Reconciliation Discrepancies (compared to [facility] med list) No New medications: No New medical conditions: No New allergies: No Adherence: Any missed doses? No Are you experiencing any side effects from your medications? No Patient understands no changes to current drug regimen were made.. Casandra Hunt CPHT 04/12/20 4:30 PM documented in this encounter Plan of Treatment Upcoming Encounters Date Type Specialty Care Team Description 02/15/2022 Office Visit Hematology and Oncology Morris Dozier MD [facility] DR ONCOLOGY [place] [address] (Wo rk) documented as of this encounter Goals Goal Patient Goal Associated Recent Patient-Stated? Author Type Problems Progress DH Home Medication Patient No Tamera calvillo, Compliance and Facing Brandt Morin Understanding Action Plan [facility] Note: Formatting of this note might be d ifferent from the original. Remain 95% adherent to Imatinib therapy without significant neutropenia as assessed by CBC labs in clinic every 1 to 3 months documented as of this encounter Visit Diagnoses Not on filedocumented in this encounter Care Teams Marketing And Promotions Manager Relationship Specialty Start Date End Date Irving Wheeler MD PCP - General 06/23/19 [address] [place] [address] documented as of this encounter
--- OUTSIDE RECORDS SUMMARY | 2022-02-01 00:25 | XMS_ITS | Encounter Summary ---
:1960 Author Organization [facility] [place] [address] Care Team Providers Name Role Phone Irving Wheeler MD Primary Care Provider [phone] Reason for Visit Reason Comments Prior Authorization Imatinib 100mg tablets Encounter Details Date Type Department Care Team Description 04/21/2020 Specialty Pharmacy Pharmacy at [facility] [place], Prior Authorization [facility] Marjorie Morin (Imatinib 100mg [address] tablets ) [place] [phone] Social History Tobacco Use Types Packs/Day Years [...] documented as of this encounter Progress Notes Marjorie Parks - 04/21/2020 4:09 PM EST [facility], Medication Prior Authorization Patient: Mary Kay Gonzalez Patient : 1960 Patient Address: [address] [place] [address] (home) Medication Name: IMATINIB 400 MG TABLET Medication ID: Patient Location: [facility] HEM ONC 3K Patient Location Comment: Subscriber Insurance: Subscriber Insurance Comment: [employer] Fax: Physician: MORRIS YANG Physician Comment: Sent Via: [facility], [facility] Sood: [id number] Ref/Case/PA#: Medication Strength Frequency Requested: Imatinib 100mg - Take one tablet every day. Qty/Day Supply: New Start: Change in Dose Diagnosis & ICD-10 Code: GIST C49.A3 Patient Notified: No Submission Notes: None Marjorie Parks 04/21/20 4:13 PM Marjorie Parks - 04/21/2020 4:09 PM EST [facility], Prior Authorization Approval Medication Name: IMATINIB 400 MG TABLET Medication ID: Fillable at [facility]: Yes Approval Dates: 04/21/2020 to 10/18/2020 Insurance requirements/notes: Can fill w/ [facility] Other Notes: Can fill at [facility]. Case/Reference #: n/a Approval notification Received via: Fax Copay: $0.00 Copay assistance: None Copay Notes: Insurance mandated Pharmacy: [facility] Pharmacy staff will be reaching out to the patient to inform them of their medication's approval by their insurance. If applicable, a pharmacist will speak with the patient to offer our specialty pharmacy services and to arrange delivery of their medication. Marjorie Parks 04/24/20 9:08 AM documented in this encounter Plan of Treatment Upcoming Encounters Date Type Specialty Care Team Description 02/15/2022 Office Visit Hematology and Oncology Morris Yang MD [facility] ONCOLOGY [place], [place] [address] (Wo rk) documented as of this encounter Goals Goal Patient Goal Associated Recent Patient-Stated? Author Type Problems Progress DH Home Medication Patient No Rozols rajinder, Compliance and Facing Brandt Morin Understanding Action Plan [facility] Note: Formatting of this note might be d ifferent from the original. Remain 95% adherent to Imatinib therapy without significant neutropenia as assessed by CBC labs in clinic every 1 to 3 months documented as of this encounter Visit Diagnoses Not on filedocumented in this encounter Care Teams Knitting Machine Operator Automatic Relationship Specialty Start Date End Date Irving Wheeler MD PCP - General 06/23/[address] [place] [address] documented as of this encounter
--- OUTSIDE RECORDS SUMMARY | 2022-02-01 00:25 | XMS_ITS | Encounter Summary ---
:1960 Author Organization [facility] [place] [address] Care Team Providers Name Role Phone Irving Wheeler MD Primary Care Provider [phone] Reason for Visit Reason Onset Date Comments Labs Only 09/08/2020 lab tracking Encounter Details Date Type Department Care Team Description 09/08/2020 Telephone Hematology/Oncology at [facility], Labs Only (lab [facility] RN tracking) [address] [place] [phone] Social History Tobacco Use Types Packs/Day [...] Telephone Encounter - Katherin Corona, RN - 09/08/2020 2:31 PM EDT LAB TRACKING Jen Farmer [id number] 1960 ?? 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 LABS ORDERED: cbc diff ?? MEDICATIONS: Imatinib 200mg daily Assessment/Plan: 09/08 imatanib increased to 200mg daily. We will now check CBC every week at [facility]. Results for JEN FARMER ( ) as of 09/08/2020 14:31 Ref. Range 08/11/2020 00:00 08/25/2020 00:00 09/08/2020 00:00 WBC Latest Ref Range: 4.8 - 10.8 3.4 6.0 3.2 (L) Hemoglobin Unknown 12.8 12.8 12.5 Hematocrit Unknown 39.0 38.0 Platelets Unknown 210 232 245 Neutr Abs (ANC) Unknown 2.02 3.86 2.12 documented in this encounter Plan of Treatment Upcoming Encounters Date Type Specialty Care Team Description 02/15/2022 Office Visit Hematology and Oncology Morris Dozier MD [facility] DR ONCOLOGY [place], [place] [address] (Wo rk) documented as of this encounter Goals Goal Patient Goal Associated Recent Patient-Stated? Author Type Problems Progress DH Home Medication Patient No Tamera calvillo, Compliance and Facing Brandt Morin Understanding Action Plan [facility] Note: Formatting of this note might be d ifferent from the original. Remain 95% adherent to Imatinib therapy without significant neutropenia as assessed by CBC labs in clinic every 1 to 3 months documented as of this encounter Procedures Procedure Name Priority Date/Time Associated Diagnosis Comme nts CBC (WITH DIFF) Routine 09/08/2020 Results for this procedure are in the resu lts section. documented in this encounter Results (ABNORMAL) CBC (with Diff) (09/08/2020) P athologist Signature WBC 3.2 (L) 4.8 - 10.8 Hemoglobin 12.5 Hematocrit 38.0 Platelets 245 Neutr Abs (ANC) 2.12 Specimen (Source) Anatomical Location Collection Method / Collectio n Time Received Time / Laterality Volume Blood 09/08/2020 Morris Dozier MD HEMATOLOGY ORDERABLES documented in this encounter Visit Diagnoses Not on filedocumented in this encounter Care Teams Thiokol Operator Relationship Specialty Start Date End Date Irving Wheeler MD PCP - General 06/23/19 [address] [place] [address] documented as of this encounter
--- OUTSIDE RECORDS SUMMARY | 2022-02-01 00:25 | XMS_ITS | Encounter Summary ---
:1960 Author Organization [facility] [place] [address] Care Team Providers Name Role Phone Irving Wheeler MD Primary Care Provider [phone] Encounter Details Date Type Department Care Team Description 09/08/2020 TH Visit Hematology and Morris Dozier Gastrointbernie stinal stromal (TeleHealth) Oncology at [facility] MD Angel tumor (GIST) of duodenum [facility] [address] [place] [id number] [place], [place] [phone] [facility] Social History Tobacco Use Types Packs/Day Years [...] encounter Progress Notes Morris Dozier MD - 09/08/2020 1:30 PM EDT Subjective: Patient ID: Jen Farmer [...] of resection specimen. 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 Discussed at GI [...] is a telephone encounter. She is feeling very well. She is eating well. Her energy level is good. She has continued the imatinib at 100 mg per day and has tolerated that well. No fevers. She stopped the creon earlier this week and is doing fine. If she develops symptoms concerning for pancreatic insufficiency, she will restart it. No SOB or cough. No nausea or vomiting and no abd pain or discomfort. Soc Hx:, lives in [place], [place] Tob - Quit in mid Etoh - none recently. 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 Fam Hx: Father - at [...] 1.57 2.01 1830 2200 1970 3800 2120 ?? (09/07/20) - BUN/Cr - 16/0.65. Lytes and [...] day on 12/31/19. She was hospitalized at [facility] from 01/31 to [...] dose of imatinib well. The WBC is lower than two weeks ago but has fluctuate in this range. We will have her increase the dose to 200 mg per day. We will continue to follow her closely, including with weekly labs. Note: She has had both covid vaccine injections. I provided care to the patient today via telephone call. The total time associated with this visit was 20 minutes. Chasity Mojica RN - 09/08/2020 1:30 PM EDT Oral Chemotherapy Check Note 09/08/2020 Jen Farmer, 1960 Prescriptions for oral chemotherapy were reviewed as follows: Oral Chemotherapy Order imatinib: Order details: ?? Dose: 200mg daily ?? Route: Oral ?? Quantity to be dispensed #: 30 doses ?? Number of refills: 3 ?? Instructions: Take 200 mg by mouth daily. Take with food and a large glass of water to decrease stomach irritation ?? Start date: 09/08/20 Plan of care compared to information in the medical record, including note from provider on 09/08/20. The prescription was found to be complete and accurate. It was printed, reviewed and signed by provider and manually faxed to [facility] pharmacy. documented in this encounter Plan of Treatment Upcoming Encounters Date Type Specialty Care Team Description 02/15/2022 Office Visit Hematology and Oncology Morris Dozier MD [facility] DR ONCOLOGY [place], [place] [address] (Wo rk) documented as of this encounter Goals Goal Patient Goal Associated Recent Patient-Stated? Author Type Problems Progress DH Home Medication Patient No Tamera calvillo, Compliance and Facing Brandt Morin, Understanding Action Plan [facility] Note: Formatting of this note might be d ifferent from the original. Remain 95% adherent to Imatinib therapy without significant neutropenia as assessed by CBC labs in clinic every 1 to 3 months documented as of this encounter Visit Diagnoses Diagnosis Gastrointestinal stromal tumor (GIST) of duodenum documented in this encounter Care Teams Dehairing Machine Tender Relationship Specialty Start Date End Date Irving Wheeler MD PCP - General 06/23/[address] [place] [address] documented as of this encounter
--- OUTSIDE RECORDS SUMMARY | 2022-02-01 00:25 | XMS_ITS | Encounter Summary ---
:1960 Author Organization [facility] [place] [address] Care Team Providers Name Role Phone Irving Wheeler MD Primary Care Provider [phone] Encounter Details Date Type Department Care Team Description 04/20/2020 Orders Only Hematology and Morris Dozier, Benitez i surekha deficiency anemia; Oncology at [facility] MD Pancreatic insufficiency [facility] [address] [place] [id number] [place] [address] [phone] Social History Tobacco Use Types Packs/Day Years [...] Morris Dozier MD [facility] [place], [place] [address] (Wo rk) documented as of this encounter Goals Goal Patient Goal Associated Recent Patient-Stated? Author Type Problems Progress DH Home Medication Patient No Tamera calvillo, Compliance and Facing Brandt Morin Understanding Action Plan [facility] Note: Formatting of this note might be d ifferent from the original. Remain 95% adherent to Imatinib therapy without significant neutropenia as assessed by CBC labs in clinic every 1 to 3 months documented as of this encounter Visit Diagnoses Diagnosis Other iron deficiency anemia Pancreatic insufficiency Other specified disease of pancreas documented in this encounter Care Teams Chair Installer Relationship Specialty Start Date End Date Irving Wheeler MD PCP - General 06/23/[address] [place] [address] documented as of this encounter
--- OUTSIDE RECORDS SUMMARY | 2022-02-01 00:25 | XMS_ITS | Encounter Summary ---
:1960 Author Organization [facility] [place] [address] Care Team Providers Name Role Phone Irving Wheeler MD Primary Care Provider [phone] Reason for Visit Reason Onset Date Comments Labs Only 05/26/2020 Lab tracking Encounter Details Date Type Department Care Team Description 05/26/2020 Telephone Hematology/Oncology at Katherin Corona, Labs Only (Lab [facility] RN tracking) [address] [place] [phone] Social History Tobacco Use Types Packs/Day [...] Telephone Encounter - Katherin Corona, RN - 05/26/2020 4:44 PM EST LAB TRACKING Jen Farmer ?? 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 LABS ORDERED: cbc diff ?? MEDICATIONS: Imatinib 100mg daily ?? Assessment/Plan: Labs reviewed with Dr. Dozier. Continue weekly CBC 06/02, 06/09 and 06/16 with MD visit. Results for JEN FARMER ( ) as of 05/26/2020 16:43 Ref. Range 05/19/2020 00:00 05/26/2020 00:00 WBC Latest Ref Range: 4.8 - 10.8 5.03 4.1 (A) Hemoglobin Latest Ref Range: 12.0 - 15.5 12.1 11.9 (A) Hematocrit Unknown 38.1 37.0 Platelets Unknown 237 226 Neutr Abs (ANC) Unknown 3.22 2.06 documented in this encounter Plan of Treatment Upcoming Encounters Date Type Specialty Care Team Description 02/15/2022 Office Visit Hematology and Oncology Morris Dozier MD [facility] DR ONCOLOGY [place], [place] [address] (Wo rk) documented as of this encounter Goals Goal Patient Goal Associated Recent Patient-Stated? Author Type Problems Progress DH Home Medication Patient No Tamera calvillo, Compliance and Facing Brandt Morin Understanding Action Plan [facility] Note: Formatting of this note might be d ifferent from the original. Remain 95% adherent to Imatinib therapy without significant neutropenia as assessed by CBC labs in clinic every 1 to 3 months documented as of this encounter Procedures Procedure Name Priority Date/Time Associated Diagnosis Comme nts CBC (WITH DIFF) Routine 05/26/2020 Results for this procedure are in the resu lts section. CBC (WITH DIFF) Routine 05/19/2020 Results for this procedure are in the resu lts section. documented in this encounter Results (ABNORMAL) CBC (with Diff) (05/26/2020) [facility] Signature WBC 4.1 (A) 4.8 - 10.8 Hemoglobin 11.9 (A) 12.0 - 15.5 Hematocrit 37.0 Platelets 226 Neutr Abs (ANC) 2.06 Specimen (Source) Anatomical Location Collection Method / Collectio n Time Received Time / Laterality Volume Blood specimen 05/26/2020 (specimen) Morris Dozier MD HEMATOLOGY ORDERABLES CBC (with Diff) (05/19/2020) P athologist Signature WBC 5.03 Hemoglobin 12.1 Hematocrit 38.1 Platelets 237 Neutr Abs (ANC) 3.22 Specimen (Source) Anatomical Location Collection Method / Collectio n Time Received Time / Laterality Volume Blood specimen 05/19/2020 (specimen) Morris Dozier MD HEMATOLOGY ORDERABLES documented in this encounter Visit Diagnoses Not on filedocumented in this encounter Care Teams Infantry Senior Sergeant Relationship Specialty Start Date End Date Irving Wheeler MD PCP - General 06/23/19 [address] [place] [address] documented as of this encounter
--- OUTSIDE RECORDS SUMMARY | 2022-02-01 00:25 | XMS_ITS | Encounter Summary ---
:1960 Author Organization [facility] [place] [address] Care Team Providers Name Role Phone Irving Wheeler MD Primary Care Provider [phone] Encounter Details Date Type Department Care Team Description 09/04/2020 Laboratory Appointment Lab [address] [place] [phone] Social History Tobacco Use Types Packs/Day [...] Visit Hematology and Oncology Morris Dozier MD [facility] ONCOLOGY [place], [place] [address] (Wo rk) documented as of [...] on filedocumented in this encounter Care Teams Livery Car Driver Relationship Specialty Start Date End Date Irving Wheeler MD PCP - General 06/23/[address] [place] [id number] documented as of this encounter
--- OUTSIDE RECORDS SUMMARY | 2022-02-01 00:25 | XMS_ITS | Encounter Summary ---
:1960 Author Organization [facility] [place] [address] Care Team Providers Name Role Phone Irving Wheeler MD Primary Care Provider [phone] Encounter Details Date Type Department Care Team Description 04/21[facility] [address] [phone] Social History Tobacco Use [...] Hematology and Oncology Morris Dozier MD [facility] ONCOLOGY [place], [place] [address] (Wo rk) documented as of this encounter Goals Goal Patient Goal Associated Recent Patient-Stated? Author Type Problems Progress DH Home Medication Patient No Tamera calvillo, Compliance and Facing Jean Paul, Understanding Action Plan [facility] Note: Formatting of this note might be d ifferent from the original. Remain 95% adherent to Imatinib therapy without significant neutropenia as assessed by CBC labs in clinic every 1 to 3 months documented as of this encounter Visit Diagnoses Not on filedocumented in this encounter Care Teams Gi Asst Relationship Specialty Start Date End Date Irving Wheeler MD PCP - General 06/23/[address] [place] [address] documented as of this encounter
--- OUTSIDE RECORDS SUMMARY | 2022-02-01 00:25 | XMS_ITS | Encounter Summary ---
:1960 Author Organization [facility] [place] [address] Care Team Providers Name Role Phone Irving Wheeler MD Primary Care Provider [phone] Encounter Details Date Type Department Care Team Description 07/28/2020 TH Visit Hematology/Oncology Nicanor Dozier MD [facility] [place] [address] Gastrointestinal stromal (TeleHealth) at [facility] Tere Beckham APRN [address] [place] [address] DR HEMATOLOGY ONCOLOGY [place], [place] [id number] tumor (GIST) of duodenum [address] [place] [phone] Social History Tobacco Use Types Packs/Day Years [...] encounter Progress Notes Morris Dozier MD - 07/28/2020 1:30 PM EDT Subjective: Patient ID: Jen Farmer is a [...] of resection specimen. 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 Discussed at GI [...] disease in the chest,abdomen and pelvis. 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 On 02/23/20 she underwent a Whipple procedure with resection of the duodenal GIST, path report above. Restarted imatinib at 100 mg per day on 05/07/20 She continues to feel well and is tolerating the imatinib well. No nausea or vomiting and no abd pain or discomfort. She is eating well. Her weight is in the same range that it has been recently. Her energy level is good. Her bowels are regular. She is taking Creon with meals, about 3 per day. No fevers or chills. She received the first covid vaccine shot and tolerated that well. The second shot is due in early August. Soc Hx:Divorces, lives in [place], [place] Tob - Quit in mid Etoh - none recently. 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 Fam Hx: Father - at [...] 00:00 06/30/2020 00:00 07/07/2020 00:00 07/14/20 07/28/20 WBC Unknown 3.0 (A) 3.5 (A) 3.6 3.4 3.6 Hemoglobin Unknown 12.8 12.9 13.2 12.3 12.9 Hematocrit Unknown 40.0 39.0 41.0 38 40 Platelets Unknown 221 211 235 196 Neutr Abs (ANC) Unknown 1.66 1.57 2.01 1830 2200 ?? (07/28/20): Iron - 84, TIBC - 333, [...] personally reviewed, report above Assessment and Plan: Ms. Farmer is 59 yo, seen for evaluation [...] 12/31/19. She [place] [facility] [place]04[place]. She had presented [...] CT scan was done on 07/25/20. There is no evidence of disease. She is due for the second Covid 19 vaccine shot in early August. We have talked about trying to increase the dose of the imatinib. We are not planning to make any change until after the second shot, which is in a couple of week, Therefore, she will continue the imatinib at 100 mg per day for now, recheck labs in two weeks and plan to see her in 4 weeks. documented in this encounter Plan of Treatment Upcoming Encounters Date Type Specialty Care Team Description 02/15/2022 Office Visit Hematology and Oncology Morris Dozier MD [facility] DR ONCOLOGY [place], [place] [address] (Wo rk) documented as of this encounter Goals Goal Patient Goal Associated Recent Patient-Stated? Author Type Problems Progress DH Home Medication Patient No [place], Compliance and Facing Brandt Morin Understanding Action Plan [facility] Note: Formatting of this note might be d ifferent from the original. Remain 95% adherent to Imatinib therapy without significant neutropenia as assessed by CBC labs in clinic every 1 to 3 months documented as of this encounter Visit Diagnoses Diagnosis Gastrointestinal stromal tumor (GIST) of duodenum documented in this encounter Care Teams Lead Software Tester Relationship Specialty Start Date End Date Irving Wheeler MD PCP - General 06/23/19 [address] [place] [address] documented as of this encounter
--- OUTSIDE RECORDS SUMMARY | 2022-02-01 00:26 | XMS_ITS | Encounter Summary ---
:1960 Author Organization [place] [address] Care Team Providers Name Role Phone Irving Wheeler MD Primary Care Provider [phone] Encounter Details Date Type Department Care Team Description 03/19/2020 Telephone Hematology and Oncology [place] [address] [place] [phone] Social History Tobacco Use Types Packs/Day [...] Telephone Encounter - Rosario Frausto RD - 03/20/2020 8:17 AM EST Diagnosis: GIST, small bowel 01/01/20: Imatinib, 400mg/D-hospitalized 01/31-02/04/20, imatinib discontinued secondary to severe leukopenia/neutropenia. She then proceeded with Whipple. Operations/Major Procedures: Operations: 02/23/2020 Surgeon(s) and Role: * Emely Galdamez MD - Primary * Jaycee Brumfield MD - Resident * Palmer Ledezma MD - Resident: Procedure(s): @PANCREATECTOMY, WHIPPLE TYPE WITH PANCREATOJEJUNOSTOMY (WRVU 52.79) (N/A) @JEJUNOSTOMY TUBE PLACEMENT (WRVU 2.62) (N/A) PANCREATIC STENT INSERTION (WRVU 18.28) (N/A) @OMENTAL FLAP, INTRA-ABDOMINAL (WRVU 6.54) EN via jtube: Peptamen AF Goal rate is 52 ml per hour x 14 hours - providing 750 ml Peptamen AF/D or 900 kcals/D Calories: 1550 (30 kcal/kg admit WT) Protein: 75-100 grams (1.5-2.0 g/kg IBW) DGE: discontinued Reglan last Friday afternoon On , experienced moderate pain after eating, she tried to continue with several small meals that day. By Friday, more difficult with increased pain and nausea (reports nearly vomiting), pain was associated with eating. Friday: felt somewhat better, no nausea but understandably reluctant to eat. Decreased pain. Friday: pain free but woke up to diarrhea (4-5 loose stools). Continues with bland diet of crackers, egg, tea. She feels good today--hopeful that nausea and pain have passed. TAMEKA: Dosing one to two Creon 24 with food--occasionally 3 with meals. Bowels are moving once every morning. Light brown. But more recently (this morning), experienced diarrhea for the first time. Weight prior to surgery: 114 pounds, 106 pounds at discharge Weight last week: 103.4, per Mary Kay, weight down by one pound in past few days A/P: Received call from Mary Kay today--discussed past few days of eating--she had two difficult days once she discontinued Reglan (last Fri). Better today and yesterday--she is hopeful that remainder of today will continue to be pain free and no nausea. She remains on nocturnal jtube feedings. Suspect DGE and may need to return to dosing Reglan pending how today and tomorrow go for her. I will follow up with Mary Kay on her post op visit with Dr Galdamez tomorrow. She also sees Dr Nicanor Dozier following day in clinic. documented in this encounter Plan of Treatment Upcoming Encounters Date Type Specialty Care Team Description 02/15/2022 Office Visit Hematology and Oncology Morris Dozier MD [facility] ER DR [place]OGY [place] [address] (Wo rk) documented as of this encounter Goals Goal Patient Goal Associated Recent Patient-Stated? Author Type Problems Progress DH Home Medication Patient No Rovinicio calvillo, Compliance and Facing Brandt Morin, Understanding Action Plan [facility] Note: Formatting of this note might be d ifferent from the original. Remain 95% adherent to Imatinib therapy without significant neutropenia as assessed by CBC labs in clinic every 1 to 3 months documented as of this encounter Visit Diagnoses Not on filedocumented in this encounter Care Teams Coal Trammer Relationship Specialty Start Date End Date Irving Wheeler MD PCP - General 06/23/[address] [place] [address] documented as of this encounter
--- OUTSIDE RECORDS SUMMARY | 2022-02-01 00:26 | XMS_ITS | Encounter Summary ---
:1960 Author Organization [facility] [place] [address] Care Team Providers Name Role Phone Irving Wheeler MD Primary Care Provider [phone] Encounter Details Date Type Department Care Team Description 03/06/2020 Telephone Hematology and Oncology at [place] [address] Social History Tobacco Use Types Packs/Day [...] Telephone Encounter - Rosario Frausto RD - 03/06/2020 8:25 AM EDT Diagnosis: GIST, small bowel 01/01/20: Imatinib, 400mg/D-hospitalized [...] Goal rate is 52 ml per hour x16 hours daily. (starts at 7pm and run approx 15 hours) At goal, this will provide 832 ml formula, 998 calories, 63 grams protein, 672 ml water from formulaand 66% of RDI's for vitamins and minerals. Calories: 1550 (30 kcal/kg admit WT) Protein: 75-100 grams (1.5-2.0 g/kg IBW) I spoke with Mary Kay Ballesteros's friend, initially who asked that I try calling back to speak with Mary Kay as she was on phone with her son. Per Lesli, Mary Kay is consuming one 6 ounce Whole Milk yogurt/D, bites of sweet potato, 1 1/2 chickenthighs last night--followed with some stomach upset later but no vomiting. I spoke with Mary Kay who feels that she may have turned the corner with eating on Friday--feels that there is less effort with chewing and swallowing and eating process feels a little more like normalto her more recently. Yesterday she consumed 6 ounces whole milk yogurt, 2 drum sticks (without skin) and crackers. She was of course very encouraged by this. She remains on Reglan dosing four times/D and is dosing one Creon 24 with food. Bowels are moving 1-2 times a day, stools are paper cutter than usual, yellow Denies nausea other than last night after consuming second chicken drum stick--felt unwell but no vomiting. Currently tolerating enteral feedings at night--cycles over 15-16 hours. Weight prior to surgery: 114 pounds, 106 pounds at discharge, current weight holding at 102.8 pounds A/P: Mary Kay remains on enteral feedings cycled over 16 hours providing 65% total kcal needs. Oral intake improving - tolerating small volume foods--adds that she has decided to be patient in this process ofreintroducing foods to her diet. 1. Discussed that enteral feedings are providing about 1000 kcals/D--seeking about 400-500 extra kcals orally to meet her needs for recovery. 2. Discussed gradual decrease in enteral feedings as oral intake increases--we may be able to decrease number of hours Mary Kay is on enteral feedings in another week ie reduce to 12 hour feedings. 3. TAMEKA: discussed importance of maintaining on PERT as well as length of time patients continue to take enzymes s/p Whipple. Discussed dosing and timing with meals and snacks. 4. Mary Kay inquired about returning to taking supplements ie Vit D, Vit C--discussed that some patients chose to focus on maximizing kcal intake first after Whipple and will follow this with adding usual supplements. Discussed 3-6 mos post whipple nutritional labs and rationale. I will call Mary Kay in another week (Friday) to check in. Provided my phone number should she need tocontact me. documented in this encounter Plan of Treatment Upcoming Encounters Date Type Specialty Care Team Description 02/15/2022 Office Visit Hematology and Oncology Morris Dozier MD [facility] DR ONCOLOGY [place], [place] [address] (Wo rk) documented as of [...] filedocumented in this encounter Care Teams Marketing Operations Specialist Relationship Specialty Start Date End Date Irving Wheeler MD PCP - General 06/23/19 [address] [place], [place] [phone] documented as of this encounter
--- OUTSIDE RECORDS SUMMARY | 2022-02-01 00:26 | XMS_ITS | Encounter Summary ---
:1960 Author Organization [facility] [address] Care Team Providers Name Role Phone Irving Wheeler MD Primary Care Provider [phone] Encounter Details Date Type Department Care Team Description 03/20/2020 Clinical Support General Surgery at [facility] B, RD gastrointestinal stromal [facility] tumor (GI ST) of [place] [address] Social History Tobacco Use Types Packs/Day Years [...] Sign Reading Time Taken Comments Blood Pressure 117/65 03/20/2020 1:51 PM EST Pulse 101 03/20/2020 1:51 PM EST Temperature 36.6 ??C (97.8 ??F) 03/20/2020 1:51 PM EST Respiratory Rate 18 03/20/2020 1:51 PM EST Oxygen Saturation 98% 03/20/2020 1:51 PM EST Inhaled Oxygen Concentration - - Weight 47.6 kg (105 lb) 03/20/2020 1:51 PM EST Height - - Body Mass Index 18.84 02/23/2020 6:09 AM EDT documented in this encounter Progress Notes Rosario Frausto, RD - 03/20/2020 2:00 PM EST Diagnosis: GIST, small bowel 01/01/20: Imatinib, [...] WT) Protein: 75-100 grams (1.5-2.0 g/kg IBW) Mary Kay looks well today in clinic and reports feeling well--she experienced no additional pain yesterday after I spoke with her. DGE: discontinued Reglan last Friday and experienced post prandial pain on which became more difficult for her on Friday with accompanied nausea. By Friday, she felt some improvement and by Friday she was was pain free but woke up to diarrhea following enteral feeding.Yesterday continued to be a good day for her--consumed soft boiled egg in am, yogurt, soft boiled egg and bread. TAMEKA: Dosing one to two Creon 24 with food--occasionally 3 with meals. Bowels are moving once every morning. Light brown. No additional diarrhea. Weight prior to surgery: 114 pounds, 106 pounds at discharge Weight last week: 103.4, 102.8 today on home scale. Wt Readings from Last 3 Encounters: 03/20/20 47.6 kg (105 lb) 02/23/20 52.3 kg (115 lb 4.8 oz) 02/08/20 52.3 kg (115 lb 3.2 oz) A/P: 9% weight loss within four weeks, severe. However stable weight (less one pound) over past two weeks. Difficult two days following discontinuation of Reglan - experienced post prandial pain and nausea with one episode of diarrhea Friday morning. Fortunately, feeling better now without post prandial pain. Consuming small volume meals and running nocturnal enteral feedings providing about 900 kcals/night. Goal is to try to preserve her weight as she weans off enteral feedings and gradually increases oral intake/avoid further weight loss. 1. EN: discussed reducing enteral feedings by single unit of Peptamen AF--recommend run 2 units of Peptamen AF/night over about 10 hours. Suspect this will help to lift appetite and intake during the day. Consider discontinuing enteral feedings in another week. 2. TAMEKA: recommend incr to 2-3 with meals and 1-2 with snacks blas if experiencing signs/symptoms of TAMEKA ie post prandial bloating, gas, light colored stools, loose stools, etc. 3. I will plan to call Mary Kay in another week but encouraged her to contact me at any time with concerns or questions. documented in this encounter Plan of Treatment Upcoming Encounters Date Type Specialty Care Team Description 02/15/2022 Office Visit Hematology and Oncology Morris Dozier MD [facility] ONCOLOGY [place], [place] [address] (Wo rk) documented as of this encounter Goals Goal Patient Goal Associated Recent Patient-Stated? Author Type Problems Progress DH Home Medication Patient No Tamera calvillo, Compliance and Facing Brandt Morin Understanding Action Plan [facility] Note: Formatting of this note might be d ifferent from the original. Remain 95% adherent to Imatinib therapy without significant neutropenia as assessed by CBC labs in clinic every 1 to 3 months documented as of this encounter Visit Diagnoses Diagnosis Malignant gastrointestinal stromal tumor (GIST) of small intestine documented in this encounter Care Teams Communications Tech Relationship Specialty Start Date End Date Irving Wheeler MD PCP - General 06/23/[address] [place] [address] documented as of this encounter
--- OUTSIDE RECORDS SUMMARY | 2022-02-01 00:26 | XMS_ITS | Encounter Summary ---
:1960 Author Organization [facility] [place] [address] Care Team Providers Name Role Phone Irving Wheeler MD Primary Care Provider [phone] Reason for Visit Reason Comments Prior Authorization Creon [id number] Unit CPEP Encounter Details Date Type Department Care Team Description 03/02/2020 Specialty Pharmacy Pharmacy at [facility] Jarrett, Prior Authorization [facility] Jaycee Proctor (Creon [id number] Unit [address]PEP) [place] [address] Social History Tobacco Use Types [...] documented as of this encounter Progress Notes Jaycee Farias - 03/02/2020 1:51 PM EDT [facility], Medication Prior Authorization Request Patient: Mary Kay Gonzalez Patient : 1960 Patient Address: [address] [place] [address] (home) Medication Name: CREON 24,[id number],000-120,000 UNIT CAPSULE,DELAYED RELEASE Medication ID: [id number] Patient Location: [facility] GEN SURGERY 4L Patient Location Comment: Medication Strength Frequency Requested: Creon:one to two capsules by mouth with meals and one capsule with snacks Qty/Day Supply: 270/30 New Start: New to Pharmacy Diagnosis & ICD-10 Code: Pancreatic insufficiency K86.81 Subscriber Insurance: Subscriber Insurance Comment: [employer] Fax: Physician: COLLIN LALA Physician Comment : PA Status: NO PA REQUIRED Pharmacy: [facility] Insurance requirements/notes: None Copay: $0 Copay assistance: Copay assistance comment: Fillable at [facility]: Yes Insurance mandated Pharmacy: [facility] Jaycee Farias 03/02/20 2:14 PM documented in this encounter Plan of Treatment Upcoming Encounters Date Type Specialty Care Team Description 02/15/2022 Office Visit Hematology and Oncology Morris Dozier MD [facility] ONCOLOGY [place] [id number] (Wo rk) documented as of this encounter [...] on filedocumented in this encounter Care Teams Manufacturing Director Relationship Specialty Start Date End Date Irving Wheeler MD PCP - General 06/23/19 [address] [place] [address] documented as of this encounter
--- OUTSIDE RECORDS SUMMARY | 2022-02-01 00:26 | XMS_ITS | Encounter Summary ---
:1960 Author Organization [facility] [place] [address] Care Team Providers Name Role Phone Irving Wheeler MD Primary Care Provider [phone] Reason for Visit Auth/Cert Specialty Diagnoses / Procedures Referred By Contact Refer red To Contact Diagnoses Gastroparesis Non-intractable vomiting with nausea, unspecified vomiting type Procedures EMERGENCY IPI Referral ID Status Reason Start Date Expiration Date Visits Requ ested Visits Authorized [id number] 1 1 Encounter Details Date Type Department Care Team Description 03/21/2020 Hospital Encounter Hematology and Gastroi ntestinal stromal Oncology at [facility] tumor (GIST) [place] [address] Social History Tobacco Use Types Packs/Day Years [...] on file documented as of this encounter Medications at Time of Discharge Medication Sig Dispensed Refills Start Date End Date traMADoL (Ultram) 50 mg 1 tablet 0 03/01/2020 Tablet sucralfate (Carafate) 1 Every 6 hours. 0 07/28/19 20 gram Tablet lmxbjr-owyoopqz-ukbxqsg as directed 0 03/01/2020 (Audrey 24) 24,000-76,000 -120,000 unit Capsule, Delayed Release(E.C.) esomeprazole (NexIUM) 40 Every 12 hours. 0 2019 mg Capsule, Delayed Release(E.C.) acetaminophen (Tylenol) 2 tablets 0 03/01/2020 500 mg Tablet ferrous sulfate (IRON Take 50 mg by mouth 0 ORAL) daily. Actually chelated amino acid Iron cholecalciferol, Vitamin Take 4,000 Units by 0 D3, 50 mcg (2,000 unit) mouth daily. Capsule acetaminophen (Tylenol) Take 2 tablets by 0 03/0109/04/2020 500 mg Tablet mouth every 6 hours as needed for Pain. treado-avqpxctu-fdyngmr Take 1-2 capsules 270 capsule 3 02/1001/26/2021 DR Kiser 24) by mouth 3 times 24,000-76,000 -120,000 daily (with meals). unit Capsule, Delayed With Meals: Take Release(E.C.) 1-2 capsules by mouth. With Snacks: Take 1 capsule by mouth. docusate sodium (Colace) Take 1 capsule by 0 02/1003/29/2020 100 mg Capsule mouth 2 times daily as needed for Constipation. omeprazole (PriLOSEC) 40 Take 40 mg by mouth 0 03/29/2020 mg Capsule, Delayed Daily. Release(E.C.) documented as of this encounter Plan of Treatment Upcoming Encounters Date Type Specialty Care Team Description 02/15/2022 Office Visit Hematology and Oncology Morris Dozier MD [facility] [place], [place] [address] (Wo rk) documented as of this encounter Goals Goal Patient Goal Associated Recent Patient-Stated? Author Type Problems Progress DH Home Medication Patient No Tamera calvillo, Compliance and Facing Brandt Morin Understanding Action Plan [facility] Note: Formatting of this note might be d ifferent from the original. Remain 95% adherent to Imatinib therapy without significant neutropenia as assessed by CBC labs in clinic every 1 to 3 months documented as of this encounter Procedures Procedure Name Priority Date/Time Associated Diagnosis Comme nts HEMOGRAM Routine 03/21/2020 12:28 Gastrointestinal Results for this PM EST stromal tumor (GIST) of proc edure are in duodenum the results section. DIFFERENTIAL, Routine 03/21/2020 12:28 Gastrointestinal Result s for this AUTOMATED PM EST stromal tumor (GIST) of proc edure are in duodenum the results section. HC CBC,PLT & AUTO Routine 03/21/2020 12:28 Gastrointestinal DIFF PM EST stromal tumor (GIST) of duodenum HC VENIPUNCTURE Routine 03/21/2020 12:28 Gastrointestinal Resu lts for this PM EST stromal tumor (GIST) of proc dianare are in duodenum the results section. documented in this encounter Results Differential, Automated (03/21/2020 12:28 PM EST) athologist Signature Neutrophils % 59.6 % [facility] Neutr Abs (ANC) 3.23 1.70 - [facility] 6.10 [facility] x10(3)[facility] LABORATORY Lymphocytes % 31.9 % [facility] Lymphocytes Abs 1.7 0.9 - 3.2 [facility] x10(3)/[facility] LABORATORY Monocytes % 6.6 % [facility] Monocyte Abs 0.4 0.3 - 0.9 [facility] x10(3)/[facility] LABORATORY Eosinophils % 1.5 % [facility] Eosinophils Abs 0.1 0.0 - 0.4 [facility] x10(3)[facility] LABORATORY Basophils % 0.4 % [facility] Basophils Abs 0.0 0.0 - 0.1 [facility] x10(3)/[facility] LABORATORY Immature Gran % 0.00 % [facility] Comment: Immature granulocytes(IG's)percentage an d absolute count will include metamyelocytes, myelocytes, and promyelo cytes. Blood smears from CBCs yielding IG's will be scanned manually for concor dance. If this scan disagrees with the automated IG or if promyelocytes are not ed, a manual differential will be performed. Teresa Gran Abs 0.00 0.00 - 0.04 x10(3)/[facility] MAR Y [facility] Specimen Anatomical Collection Method Collection Time Receive d Time (Source) Location / / Volume Laterality Blood specimen 03/21/2020 12:28 0 (specimen) PM EST 12:29 PM EST Resulting Agency Comment Spec In Lab Morris Dozier MD HEMATOLOGY ORDERABLES Performing Organization Address City/State/[place] [address] (ABNORMAL) Hemogram (03/21/2020 12:28 PM EST) Analysis Performed At Patho logist Time Signature WBC 5.4 4.0 - 9.5 [facility] x[facility](3[facility] RBC 4.28 4.00 - [place] 5.21 [facility] x10(6)/[facility] LABORATORY Hemoglobin 12.3 11.7 - [place] 15.5 gm/dL [facility] Hematocrit 37.3 35.7 - [facility] [place] 45.8 % [facility] MCV 87.1 82.6 - [facility]4 [facility] LABOR[facility] MCH 28.7 27.1 - [facility] 32.0 pg [facility] MCHC 33.0 31.7 - [place] 35.0 gm/dL [facility] Platelets 320 145 - 357 [facility] x10(3)/[facility] LABORATORY RDWSD 56.6 (H) 37.0 - [place] 46.0 [facility] LABORATORY RDWCV 17.5 (H) 11.5 - [facility] [place] 14.1 % [facility] MPV 9.3 7.6 - 12.9 [facility] nRBC % Auto 0.0 % [facility] nRBC Abs Auto 0.000 0.000 - [place] 0.000 [facility] x10(3)/[facility] LABORATORY Specimen Anatomical Collection Method Collection Time Receive d Time (Source) Location / / Volume Laterality Blood specimen 03/21/2020 12:28 0 (specimen) PM EST 12:29 PM EST Resulting Agency Comment Spec In Lab Morris oDzier MD HEMATOLOGY ORDERABLES Performing Organization Address City/State/[place] [address] (ABNORMAL) Comprehensive metabolic panel (non-fasting) (03/21/2020 12:28 PM EST) P athologist Signature Glucose Lvl 104 65 - 199 [facility] mg/dL [facility] Comment: Diabetes: >=200 mg/dL plus symp toms BUN 17 8 - 18 mg/dL [facility] Creatinine 0.48 (L) 0.70 - 1.20 mg/dL [facility] Sodium 141 135 - 145 mmol/L [facility] Potassium 4.4 3.5 - 5.0 mmol/L [facility] Comment: Please note: ??Patients with WBC >100,00 0 may have falsely elevated Potassium levels. ??For accurate Potassium quantif ication in these patients send serum separator tube (gold top) for subsequent determinations. ??Contact the Clinical Chemistry Laboratory if there are any qu estions. Chloride 102 98 - 107 mmol/L [facility] CO2 31 22 - 31 mmol/L [facility] Anion Gap 8 5 - 15 mmol/L [facility] Calcium 9.7 8.5 - 10.5 mg/dL [facility] Total Protein 6.9 6.1 - 8.0 gm/dL [facility] Albumin 4.4 3.2 - 5.2 gm/dL [facility] AST 27 0 - 30 unit/L [facility] ALT 43 (H) 0 - 30 unit/L [facility] Alk Phos 72 35 - 105 unit/L [facility] Total Bilirubin 0.3 0.2 - 1.3 mg/dL [facility] Estimated GFR 109 >=60 mL/min/1.73 m?? [facility] Comment: The eGFR was calculated using the CKD-EP I equation. As with all creatinine based estimates of kidney function, eGFR values calculated with the CKD-EPI equation are not accurate in patients wi th acute kidney failure, extremes of body mass or the acutely ill. [email or web address] eGFR 126 >=60 mL/min/1.73 m?? [facility] Comment: The eGFR was calculated using the CKD-EP I equation. As with all creatinine based estimates of kidney function, eGFR values calculated with the CKD-EPI equation are not accurate in patients wi th acute kidney failure, extremes of body mass or the acutely ill. http://Gild/[facility] Specimen Anatomical Collection Method Collection Time Receive d Time (Source) Location / / Volume Laterality Blood specimen 03/21/2020 12:28 0 (specimen) PM EST 12:29 PM EST Resulting Agency Comment Spec In Lab Morris Dozier MD CHEMISTRY ORDERABLES Performing Organization Address City/State/ZIP Code Phon e Number [place] [phone] documented in this encounter Visit Diagnoses Diagnosis Gastrointestinal stromal tumor (GIST) of duodenum documented in this encounter Care Teams Screw Machine Operator Single Spindle Relationship Specialty Start Date End Date Irving Wheeler MD PCP - General 06/23/[address] [place] [id number] documented as of this encounter
--- OUTSIDE RECORDS SUMMARY | 2022-02-01 00:26 | XMS_ITS | Encounter Summary ---
:1960 Author Organization [facility] [place] [address] Care Team Providers Name Role Phone Irving Wheeler MD Primary Care Provider [phone] Encounter Details Date Type Department Care Team Description 03/13/2020 Telephone Hematology and [place]cology [place] [place] [address] Social History Tobacco Use Types Packs/Day [...] Telephone Encounter - Rosario Frausto RD - 03/13/2020 9:19 AM EST Diagnosis: GIST, small bowel 01/01/20: [...] WT) Protein: 75-100 grams (1.5-2.0 g/kg IBW) Eating has improved--does sense some appetite -- was able to consume two eggs, two toast, and proscuitto this morning. Did experience left sided pain/discomfort on Friday after consuming 1/2 avocado--attributes it to the day--was in the midst of moving back to her home after spending first post op days at her friend's, [place]. She slept later that day and woke up feeling well. Mary Kay has two sons who were with her that day. She remains on Reglan dosing four times/D. She will discontinue mid week/this week. TAMEKA: Dosing one to two Creon 24 with food. Bowels are moving once every morning. Light brown. Denies nausea. Denies post prandial bloating or discomfort. Weight prior to surgery: 114 pounds, 106 pounds at discharge Weight last week: 102.8 pounds Current weight at her home: 103.4 pounds A/P: Weight is stable--maintaining on both enteral jtube feedings cycled at night and oral intake during the day. Eating has improved for her since we last spoke--now able to pace 5 small volume meals a day. Remains on Creon 24 dosing 2 with meals. Will discontinue Reglan this week. Bowels moving without issue. Denies nausea or vomiting or dry heaves. 1. Mary Kay is making good progress with eating--now eating about 4-5 meals a day. Discussed signs/symptoms of delayed gastric emptying once she discontinues Reglan middle of this week. 2.EN: recommend reduce enteral feedings to 2 units of Peptamen AF/night or 500 ml at 52ml/hour (est 10 hours/night). Recommend continue for next two weeks before discontinuing completely. 3. TAMEKA: Mary Kay is using 1-2 Creon 24 with meals and snacks--discussed increasing to 3 as volume of intake increases. I will follow up with Mary Kay on her post op visit with Dr Galdamez. She also sees Dr Nicanor Dozier following day in clinic. documented in this encounter Plan of Treatment Upcoming Encounters Date Type Specialty Care Team Description 02/15/2022 Office Visit Hematology and Oncology Morris Dozier MD [facility] ONCOLOGY [place], [place] [address] (Wo rk) documented as of this encounter Goals Goal Patient Goal Associated Recent Patient-Stated? Author Type Problems Progress DH Home Medication Patient No Tamera calvillo, Compliance and Facing Brandt Morin, Understanding Action Plan [facility] Note: Formatting of this note might be d ifferent from the original. Remain 95% adherent to Imatinib therapy without significant neutropenia as assessed by CBC labs in clinic every 1 to 3 months documented as of this encounter Visit Diagnoses Not on filedocumented in this encounter Care Teams Auxiliary Engineer Relationship Specialty Start Date End Date Irving Wheeler MD PCP - General 06/23/19 [address] [place] [address] documented as of this encounter
--- OUTSIDE RECORDS SUMMARY | 2022-02-01 00:26 | XMS_ITS | Encounter Summary ---
:1960 Author Organization [facility] [address] Care Team Providers Name Role Phone Irving Wheeler MD Primary Care Provider [phone] Reason for Visit Reason Comments Follow-up Auth/Cert Specialty Diagnoses / Procedures Referred By Contact Refer red To Contact Diagnoses Gastroparesis Non-intractable vomiting with nausea, unspecified vomiting type Procedures EMERGENCY IPI Referral ID Status Reason Start Date Expiration Date Visits Requ ested Visits Authorized [id number] 1 1 Encounter Details Date Type Department Care Team Description 03/21/2020 Office Visit Hematology and Morris Dozier Gastrointbernie stinal stromal Oncology at [facility] MD Angel tumor (GIST) of duodenum [facility] [address] [place], [place] [phone] [facility] Social History Tobacco Use Types Packs/Day Years [...] Sign Reading Time Taken Comments Blood Pressure 98/61 03/21/2020 1:31 PM EST Pulse 90 03/21/2020 1:31 PM EST Temperature 36.7 ??C (98.1 ??F) 03/21/2020 1:31 PM EST Respiratory Rate 16 03/21/2020 1:31 PM EST Oxygen Saturation 96% 03/21/2020 1:31 PM EST Inhaled Oxygen Concentration - - Weight 47.4 kg (104 lb 9.6 oz) 03/21/2020 1:31 PM EST Height 159.9 cm (5' 2.95) 03/21/2020 1:31 PM EST Body Mass Index 18.56 03/21/2020 1:31 PM EST documented in this encounter Progress Notes Morris Dozier MD - 03/21/2020 1:30 PM EST Subjective: Patient ID: Mary [...] of resection specimen. 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 Discussed at GI [...] Covid 19, she is by herself in [facility]. She is doing fairly well. She is still using the J-tube for nutrition. She is taking small frequent meals. She is now off the reglan. No pain or nausea. The hope is to stop the TFs in a couple of weeks. This is being tapered. She still has some abdominal bloating and discomfort at times but she doesn't describe it as pain. Her bowels are ok. No fevers or chills. She has some fatigue and her activity level is lower than herpre-op baseline but she is making progress. Soc Hx:Divorces, lives in [place], [place] Tob - Quit in mid Etoh - none recently. 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 Fam Hx: Father - at [...] Mood normal. Thought Content: Thought content normal. Recent Results (from the past 24 hour(s)) Comprehensive metabolic panel (non-fasting) Result Value Ref Range Glucose Lvl 104 65 - 199 mg/dL BUN 17 8 - 18 mg/dL Creatinine 0.48 (L) 0.70 - 1.20 mg/dL Sodium 141 135 - 145 mmol/L Potassium 4.4 3.5 - 5.0 mmol/L Chloride 102 98 - 107 mmol/L CO2 31 22 - 31 mmol/L Anion Gap 8 5 - 15 mmol/L Calcium 9.7 8.5 - 10.5 mg/dL Total Protein 6.9 6.1 - 8.0 gm/dL Albumin 4.4 3.2 - 5.2 gm/dL AST 27 0 - 30 unit/L ALT 43 (H) 0 - 30 unit/L Alk Phos 72 35 - 105 unit/L Total Bilirubin 0.3 0.2 - 1.3 mg/dL eGFR 109 >=60 mL/min/1.73 m?? eGFR 126 >=60 mL/min/1.73 m?? Hemogram Result Value Ref Range WBC 5.4 4.0 - 9.5 x10(3)/mcL RBC 4.28 4.00 - 5.21 x10(6)/mcL Hemoglobin 12.3 11.7 - 15.5 gm/dL Hematocrit 37.3 35.7 - 45.8 % MCV 87.1 82.6 - 94.4 fL MCH 28.7 27.1 - 32.0 pg MCHC 33.0 31.7 - 35.0 gm/dL Platelets 320 145 - 357 x10(3)/mcL RDWSD 56.6 (H) 37.0 - 46.0 fL RDWCV 17.5 (H) 11.5 - 14.1 % MPV 9.3 7.6 - 12.9 fL nRBC % Auto 0.0 % nRBC Abs Auto 0.000 0.000 - 0.000 x10(3)/mcL Differential, Automated Result Value Ref Range Neutrophils % 59.6 % Neutr Abs (ANC) 3.23 1.70 - 6.10 x10(3)/mcL Lymphocytes % 31.9 % Lymphocytes Abs 1.7 0.9 - 3.2 x10(3)/mcL Monocytes % 6.6 % Monocyte Abs 0.4 0.3 - 0.9 x10(3)/mcL Eosinophils % 1.5 % Eosinophils Abs 0.1 0.0 - 0.4 x10(3)/mcL Basophils % 0.4 % Basophils Abs 0.0 0.0 - 0.1 x10(3)/mcL Immature Gran % 0.00 % Teresa Gran Abs 0.00 0.00 - 0.04 x10(3)/mcL Assessment and Plan: Ms. Gonzalez is a [...] day on 12/31/19. She was hospitalized at [facility] from 01/31 to 02/04/20. She had [...] The source of the infection was felt likely to be the necrotic mass. On 02/23/20 she underwent a Whipple procedure with resection of the duodenal GIST, path report above. The question now is whether to proceed with with post- operative imatininb. Because she received pre-operative imatinib, the mitotic rate cannot be reliably assessed and therefore, risk category cannotbe accurately assigned. The recommendation in this circumstance is generally for three years of post-operative imatinib. Obviously the prior issues with neutropenia are of concern. I think one can try to rechallenge but would start at reduced dose of 100 or 200 mg per day and follow closely, ie with weekly labs initially. She is recovering well from the surgery but we have decided to wait another 4 weeks to give her moretime. I will arrange to see her in 4 weeks in [facility] as this is closer to her home. documented in this encounter Plan of Treatment Upcoming Encounters Date Type Specialty Care Team Description 02/15/2022 Office Visit Hematology and Oncology Morris Dozier MD [facility] [place], [place] [address] (Wo rk) documented as of this encounter Goals Goal Patient Goal Associated Recent Patient-Stated? Author Type Problems Progress DH Home Medication Patient No Tamera calvillo, Compliance and Facing Brandt Morin Understanding Action Plan [facility] Note: Formatting of this note might be d ifferent from the original. Remain 95% adherent to Imatinib therapy without significant neutropenia as assessed by CBC labs in clinic every 1 to 3 months documented as of this encounter Visit Diagnoses Diagnosis Gastrointestinal stromal tumor (GIST) of duodenum documented in this encounter Care Teams Premium Representative Relationship Specialty Start Date End Date Irving Wheeler MD PCP - General 06/23/[address] [place] [id number] documented as of this encounter
--- OUTSIDE RECORDS SUMMARY | 2022-02-01 00:26 | XMS_ITS | Encounter Summary ---
:1960 Author Organization [facility] [place] [address] Care Team Providers Name Role Phone Irving Wheeler MD Primary Care Provider [phone] Encounter Details Date Type Department Care Team Description 03/20/2020 Laboratory Lab 3L Camilla Malignant Appointment [facility] tumor ([place]) [place] [id number] Social History Tobacco Use Types Packs/Day Years [...] and Oncology Morris Dozier MD [facility] ON[facility] [place], [place] [address] (Wo rk) documented as of this encounter Goals Goal Patient Goal Associated Recent Patient-Stated? Author Type Problems Progress DH Home Medication Patient No Tamera calvillo, Compliance and Facing Brandt Morin, Understanding Action Plan [facility] Note: Formatting of this note might be d ifferent from the original. Remain 95% adherent to Imatinib therapy without significant neutropenia as assessed by CBC labs in clinic every 1 to 3 months documented as of this encounter Procedures Procedure Name Priority Date/Time Associated Diagnosis Comme nts HEMOGRAM Routine 03/20/2020 1:23 Malignant Results for this PM EST gastrointestinal procedure a re in stromal tumor (GIST) of the results small intestine section. DIFFERENTIAL, Routine 03/20/2020 1:23 Malignant Results for this AUTOMATED PM EST gastrointestinal procedure a re in stromal tumor (GIST) of the results small intestine section. HC CBC,PLT & AUTO Routine 03/20/2020 1:23 Malignant DIFF PM EST gastrointestinal stromal tumor (GIST) of small intestine HC VENIPUNCTURE Routine 03/20/2020 1:23 Malignant Results f or this PM EST gastrointestinal procedure a re in stromal tumor (GIST) of the results small intestine section. COMPREHENSIVE Routine 03/20/2020 1:23 Malignant Results for this METABOLIC PANEL PM EST gastrointestinal procedur e are in (NON-FASTING) stromal tumor (GIST) of the results small intestine section. documented in this encounter Results Differential, Automated (03/20/2020 1:23 PM EST) athologist Signature Neutrophils % 62.4 % [facility] Neutr Abs (ANC) 3.68 1.70 - [facility] 6.10 [facility] x10(3)/[facility] LABORATORY Lymphocytes % 28.0 % [facility] Lymphocytes Abs 1.6 0.9 - 3.2 [facility] x10(3)/[facility] LABORATORY Monocytes % 7.6 % [facility] Monocyte Abs 0.4 0.3 - 0.9 [facility] x10(3)/[facility] LABORATORY Eosinophils % 1.2 % [facility] Eosinophils Abs 0.1 0.0 - 0.4 [facility] x10(3)/[facility] LABORATORY Basophils % 0.5 % [facility] Basophils Abs 0.0 0.0 - 0.1 [facility] x10(3)/[facility] LABORATORY Immature Gran % 0.30 % [facility] Comment: Immature granulocytes(IG's)percentage an d absolute count will include metamyelocytes, myelocytes, and promyelo cytes. Blood smears from CBCs yielding IG's will be scanned manually for concor dance. If this scan disagrees with the automated IG or if promyelocytes are not ed, a manual differential will be performed. Teresa Gran Abs 0.02 0.00 - 0.04 x10(3)/[facility] MAR Y [facility] LABORATORY Specimen Anatomical Collection Method Collection Time Receive d Time (Source) Location / / Volume Laterality Blood specimen 03/20/2020 1:23 PM 020 1:58 (specimen) EST PM EST Resulting Agency Comment Spec In Lab Britany Villanueva APRN HEMATOLOGY ORDERABLES Performing Organization Address City/State/[place] [address] (ABNORMAL) Hemogram (03/20/2020 1:23 PM EST) Analysis Performed At Patho logist Time Signature WBC 5.9 4.0 - 9.5 [facility] x10(3)/[facility] LABORATORY RBC 4.25 4.00 - [facility] 5.21 [facility] x10(6)/[facility] LABORATORY Hemoglobin 11.9 11.7 - [facility] gm/dL [facility] Hematocrit 37.3 35.7 - [facility] 45.8 % [facility] MCV 87.8 82.6 - [facility]4 [facility] LABORATORY MCH 28.0 27.1 - [place] 32.0 pg [facility] MCHC 31.9 31.7 - [facility] 35.[facility] gm/dL [facility] Platelets 329 145 - 357 [facility] x10(3)/[facility] LABORATORY RDWSD 57.2 (H) 37.0 - [facility] 46.0 [facility] LABORATORY RDWCV 17.5 (H) 11.5 - [facility] % [facility] LABORATORY MPV 9.6 7.6 - 12.9 [facility] LABORATORY nRBC % Auto 0.0 % [facility] nRBC Abs Auto 0.000 0.000 - [facility] 0.000 [facility] x10(3)/[facility] LABORATORY Specimen Anatomical Collection Method Collection Time Receive d Time (Source) Location / / Volume Laterality Blood specimen 03/20/2020 1:23 PM 020 1:58 (specimen) EST PM EST Resulting Agency Comment Spec In Lab Britany Jaclyn Rich PEREZ HEMATOLOGY ORDERABLES Performing Organization Address City/State/[place] [address] (ABNORMAL) Comprehensive metabolic panel (non-fasting) (03/20/2020 1:23 PM EST) athologist Signature Glucose Lvl 96 65 - 199 [facility] mg/dL [facility] Comment: Diabetes: >=200 mg/dL plus symp toms BUN 21 (H) 8 - 18 mg/dL [facility] Creatinine 0.53 (L) 0.70 - 1.20 mg/dL [facility] LABORATORY Sodium 139 135 - 145 mmol/L [facility] Potassium 4.6 3.5 - 5.0 mmol/L [facility] Comment: Please note: ??Patients with WBC >100,00 0 may have falsely elevated Potassium levels. ??For accurate Potassium quantif ication in these patients send serum separator tube (gold top) for subsequent determinations. ??Contact the Clinical Chemistry Laboratory if there are any qu estions. Chloride 102 98 - 107 mmol/L [facility] CO2 28 22 - 31 mmol/L [facility] Anion Gap 9 5 - 15 mmol/L [facility] Calcium 9.4 8.5 - 10.5 mg/dL [facility] Total Protein 6.7 6.1 - 8.0 gm/dL [facility] Albumin 4.3 3.2 - 5.2 gm/dL [facility] AST 25 0 - 30 unit/L [facility] ALT 36 (H) 0 - 30 unit/L [facility] Alk Phos 72 35 - 105 unit/L [facility] Total Bilirubin 0.2 0.2 - 1.3 mg/dL [facility] Estimated GFR 105 >=60 mL/min/1.73 m?? [facility] Comment: The eGFR was calculated using the CKD-EP I equation. As with all creatinine based estimates of kidney function, eGFR values calculated with the CKD-EPI equation are not accurate in patients wi th acute kidney failure, extremes of body mass or the acutely ill. http://[employer] [facility]/[facility] eGFR 122 >=60 mL/min/1.73 m?? [facility] Comment: The eGFR was calculated using the CKD-EP I equation. As with all creatinine based estimates of kidney function, eGFR values calculated with the CKD-EPI equation are not accurate in patients wi th acute kidney failure, extremes of body mass or the acutely ill. http://[employer] [facility]/[facility] Specimen Anatomical Collection Method Collection Time Receive d Time (Source) Location / / Volume Laterality Blood specimen 03/20/2020 1:23 PM 020 1:58 (specimen) EST PM EST Resulting Agency Comment Spec In Lab Britany Villanueva APRN CHEMISTRY ORDERABLES Performing Organization Address City/[facility]/ZIP Code Phon e Number [address] Prealbumin (03/20/2020 1:23 PM EST) athologist Signature Prealbumin 24 20 - 40 [facility] mg/dL [facility] Comment: Prealbumin levels are generally lower in the pediatric population; adult concentrations are usually attained near puberty. 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
--- OUTSIDE RECORDS SUMMARY | 2022-02-01 00:26 | XMS_ITS | Encounter Summary ---
:1960 Author Organization [facility] [place] [address] Care Team Providers Name Role Phone Irving Wheeler MD Primary Care Provider [phone] Encounter Details Date Type Department Care Team Description 03/27/2020 Telephone Hematology and Rosario Frausto Cancele d (P-PATIENT Oncology at [facility] [address] ADMITTED/DELIVERED) [place] [address] Social History Tobacco Use Types Packs/Day [...] and Oncology Morris Dozier MD [facility] ONCOLOGY [place], [place] [address] (Wo rk) documented as of this encounter Goals Goal Patient Goal Associated Recent Patient-Stated? Author Type Problems Progress [facility] Medication Patient No Tamera calvillo, Compliance and Facing Brandt Morin, Understanding Action Plan [facility] Note: Formatting of this note might be d ifferent from the original. Remain 95% adherent to Imatinib therapy without significant neutropenia as assessed by CBC labs in clinic every 1 to 3 months documented as of this encounter Visit Diagnoses Not on filedocumented in this encounter Care Teams Solid Tire Tuber Machine Operator Relationship Specialty Start Date End Date Irving Wheeler MD PCP - General 06/23/[address] [place] [address] documented as of this encounter
--- OUTSIDE RECORDS SUMMARY | 2022-02-01 00:26 | XMS_ITS | Encounter Summary ---
:1960 Author Organization [facility] Address [address] [place] [address] Care Team Providers Name Role Phone Irving Wheeler MD Primary Care Provider [phone] Reason for Visit Reason Comments Medication Management Patient Education Medication Refill Encounter Details Date Type Department Care Team Description 03/02/2020 Specialty Pharmacy Pharmacy [place] [facility] Mireya Cruz [facility]; Patient Drive Education; [place], [place] Medication Refi [phone] Social History Tobacco Use Types Packs/Day Years [...] documented as of this encounter Progress Notes Mireya Hung RP - 03/02/2020 8:59 AM EDT Specialty Pharmacy Consultation; Mireya Hung RPH Comprehensive Medication Management (CMM): Specialty Consult, Opt Out Mary Kay Manciay Diagnosis: Creon x6mos s/p Whipple Therapy Start Date: 03/01/20 Contact in person or via telephone: via telephone Ms. Mary Kay Gonzalez is a 59 y.o. (1960) female who was contacted in regard to specialty medication. Spoke with patient regarding Creon. A review of the medication therapy was performed. The medication was filled as scheduled, and all medication related questions and concerns were addressed. The specialty pharmacy staff will follow up with the patient 7 days prior to next refill. Is the patient willing to proceed with the Clinical Assessment? No Summary and Recommendations: I let Mary Kay know that [facility] has extended our services to include pancreatic enzyme replacement therapy (PERT), however patient declined a consult today given her comfort level with therapy as outlined by her care team. Specialty team will check in with patient in about 21 days, depending on their on hand supply and dispense quantity. There were no medication related questions or concerns, andthe patient has opted out of all specialty clinical consults for enzyme therapy. I reviewed the summary of our specialty services, operating hours, sales assistant institutional sales procedure and when/how to contact the pharmacy. Economic Assessment: Patient is agreeable to medication copay: Yes Copay Amount: no copay Day Supply: 30 days Date Needed: MODESTA Therapy Assessment: Appropriate Therapy: Yes Current Medication Dosing/Route/Frequency: Creon 24,000 units (lipase) take 1-2 capsules by mouth with meals and 1 capsule by mouth with snacks, max 9 per day. Additional equipment/supplies required: no Care Plan Reviewed [...] stromal tumor), malignant C49.A0 ??? Gastroparesis K31.84 Medications Reviewed: Yes Medications reconciled: No Allergies Reviewed:Yes Allergies reconciled: No Pharmacist follow-up needed: Yes Informed patient of specialty pharmacy services: Yes -Patient will be provided with welcome packet: Yes Date to be provided: -March, will provide with next refill Delivery Method: mail/pick-up -Patient returned signed Rights & Responsibilities: Yes Date to be provided: mid-March, will provide with next refill Delivery Method: Mail/pick-up -Patient is aware a licensed pharmacist is [...] note) for provider review and follow up. Mireya Hung RPH 03/02/20 8:59 AM documented in this encounter Plan of Treatment Upcoming Encounters Date Type Specialty Care Team Description 02/15/2022 Office Visit Hematology and Oncology Morris Dozier MD [facility] [address] ONCOLOGY [place] [address] (Wo rk) documented as of this encounter Goals Goal Patient Goal Associated Recent Patient-Stated? Author Type Problems Progress DH Home Medication Patient No Tamera calvillo, Compliance and Facing Brandt Morin Understanding Action Plan [facility] Note: Formatting of this note might be d ifferent from the original. Remain 95% adherent to Imatinib therapy without significant neutropenia as assessed by CBC labs in clinic every 1 to 3 months documented as of this encounter Visit Diagnoses Not on filedocumented in this encounter Care Teams Mechanical Engineering Draftsperson Relationship Specialty Start Date End Date Irving Wheeler MD PCP - General 06/23/[address] [place] [address] documented as of this encounter
--- OUTSIDE RECORDS SUMMARY | 2022-02-01 00:26 | XMS_ITS | Encounter Summary ---
:1960 Author Organization [facility] [place] [address] Care Team Providers Name Role Phone Irving Wheeler MD Primary Care Provider [phone] Encounter Details Date Type Department Care Team Description 03/07/2020 Multidisciplinary Care General Surgery at Nohem[facility] Galdamez [facility] [place] [facility] [place] GENERAL SURGERY [phone] [place] [address] [phone] Social History Tobacco Use Types Packs/Day Years [...] documented as of this encounter Progress Notes Emely Galdamez MD - 03/07/2020 1:47 PM EDT GI - Tumor Board Note Date Presented: 03/07/2020 Presenting Physician: Emely Galdamez MD Diagnosis/Tumor Site: Duodenal GIST Synopsis of History/HPI: Mrs. Gonzalez is a 59 year old woman from [place], [place]. She presented with several months history of nausea and then vomiting to the [facility] ED with a work-up described below. 11/22/2019 CT abdomen and pelvis ([facility]). 11/25/[address] Arrieta with [...] passes were made with the 22 gauge [employer] biopsy needle using a transduodenal approach. A [...] recommendations. 11/25/2019 EUS [facility]NA cytopathology per Acc# [id number] showed Neoplastic Cells Present. Consistentwith g astrointestinal [...] and then eventually she presented to the [facility] ED with a hemoglobin of 8.5. [...] was discharged from the hospital on 02/04/2020. 02/23/2020 she underwent open Whipple procedure with J-tube placement. She was discharged home on POD #7. 03/07/2020 we reviewed her case at the GI tumor board-reviewed the preimatinib and then the post imatinib presurgical CT staging. In addition we reviewed the pathology report which showed a large, 7.3 x 5 cm mass arising from the duodenum. It was designated as grade 1 low mitotic rate-less than 5/mm??. Necrosis was present and approximately 95% of the tumor was viable. The margins were negative-closest margin was 0.1 mm-the inferior soft tissue margin. 0 out of 23 lymph nodes. In addition there was suppurative inflammation with numerous bacterial organisms identified. We discussed how there is a report in the literature of patients who had the rare complication of agranulocytosis after receiving imatinib but then were able to tolerate imatinib postoperatively at lower doses. The group felt that this would be very reasonable approach to initiate postoperative imatinib at lower doses with frequentCBCs to monitor for neutropenia. Operations/Major Procedures: Operations: 02/23/2020 Problem List (Comorbidities): Patient Active Problem List Diagnosis Code ??? 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 Anemia D64.9 ??? Disorder of thyroid gland E07.9 ??? Arthritis M19.90 ??? Tinnitus H93.19 ??? Vitamin D deficiency E55.9 ??? Osteoarthrosis M19.90 ??? GIST (gastrointestinal stromal tumor), malignant C49.A0 ??? Gastroparesis K31.84 Imaging: As above. Pathology: As above. Stage: As above. Clinical Data (Exams, Labs, etc.): As above. Histology: As above. Clinical Trial Availability: As above. Options Discussed: As above. Recommendations: As above. DISCLAIMER: The patient was discussed and the tumor board made recommendations but it is ultimately up to the treatment provider(s) and the patient to determine the patient???s care. Reid Galdamez MD This note was created using [employer] voice recognition software. documented in this encounter Plan of Treatment Upcoming Encounters Date Type Specialty Care Team Description 02/15/2022 Office Visit Hematology and Oncology Morris Dozier MD [facility] DR ONCOLOGY [place], [place] [address] (Wo ) documented as of this encounter Goals Goal Patient Goal Associated Recent Patient-Stated? Author Type Problems Progress [facility] Home Medication Patient No Tamera calvillo, Compliance and Facing Brandt Morin Understanding Action Plan [facility] Note: Formatting of this note might be d ifferent from the original. Remain 95% adherent to Imatinib therapy without significant neutropenia as assessed by CBC labs in clinic every 1 to 3 months documented as of this encounter Visit Diagnoses Not on filedocumented in this encounter Care Teams Tare Worker Relationship Specialty Start Date End Date Irving Wheeler MD PCP - General 06/23/[address] [place] [address] documented as of this encounter
--- OUTSIDE RECORDS SUMMARY | 2022-02-01 00:26 | XMS_ITS | Encounter Summary ---
:1960 Author Organization [facility] [place] [address] Care Team Providers Name Role Phone Irving Wheeler MD Primary Care Provider [phone] Reason for Visit Reason Comments Abdominal Pain Auth/Cert Specialty Diagnoses / Procedures Referred By Contact Refer red To Contact Diagnoses Gastroparesis Non-intractable vomiting with nausea, unspecified vomiting type Procedures EMERGENCY IPI Referral ID Status Reason Start Date Expiration Date Visits Requ ested Visits Authorized [id number] 1 1 Encounter Details Date Type Department Care Team Description 03/24/2020 - [address] Fatemeh Dukes MD [facility] [place] [address] Non-intractable vomiting with nausea, un specified vomiting type; 03/29/2020 Encounter Emely Bone MD [facility] [place] [address] Malignant gastrointestinal stromal tumor ([place]IST) [place] [id number] Social History Tobacco Use Types Packs/Day Years [...] Sign Reading Time Taken Comments Blood Pressure 110/53 03/29/2020 12:28 PM EST Pulse 79 03/27/2020 4:48 AM EST Temperature 36.6 ??C (97.9 ??F) 03/29/2020 11:04 AM EST Respiratory Rate 16 03/29/2020 11:04 AM EST Oxygen Saturation 94% 03/29/2020 11:04 AM EST Inhaled Oxygen Concentration - - Weight 47.1 kg (103 lb 14.4 oz) 03/29/2020 11:04 AM EST Height 162.6 cm (5' 4) 03/24/2020 10:37 AM EST Body Mass Index 17.83 03/24/2020 10:37 AM EST documented in this encounter Discharge Summaries Britany Villanueva APRN - 03/29/2020 8:25 AM EST General Surgery Inpatient - Discharge Summary Patient Name: Mary Kay Gonzalez Patient Age: 59 y.o. Birthdate: 1960 Admit date: 03/24/2020 Discharge date: 03/29/20 Admitting Physician: Emely Galdamez MD Primary Diagnosis: Gastroparesis Secondary Diagnosis: Active Hospital Problems Diagnosis ??? 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 Moderate protein-calorie malnutrition Resolved Hospital Problems No resolved problems to display. Active Non-Hospital Problems Diagnosis ??? GIST (gastrointestinal stromal tumor), malignant ??? Anemia ??? Disorder of thyroid gland ??? Arthritis ??? Tinnitus ??? Vitamin D deficiency ??? Osteoarthrosis ??? 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 Emely Galdamez's H+P Note dated 03/24/2020. HPI: Mary Kay Gonzalez is a 59 y.o. 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 She stopped reglan 9 days ago late last week worsening epigastric abdominal pain that lasted about half the day with occasional nausea. On Friday, her tube feeds were reduced to 500ccfrom 750cc on and seems to be tolerating them. She has not been doing well particularly over the last 2-3 days. Her first episode of emesis was on Friday and has continued in addition to decreased PO intake - 3 glasses of water per day the last 3 days. Emesis does give her relief of her nausea and is non-bilious. She has been having daily bowel movements which have been normal. No hematochezia, fevers, shortness of breath or chest pain. Operations/Major Procedures: None. Hospital Course: Mary Kay Gonzalez was admitted from the Emergency Room for clinical monitoring and further management of nausea, vomiting, and decreased PO intake in the setting of her delayed gastric emptying. The patient's hospital course was uncomplicated and she was deemed stable for discharge on hospital day 5. Hospital Course: HD0 03/24: Admitted from ED. NGT placed, reglan restarted HD1 03/25: NGT remained to LCWS, output decreased overnight HD2 03/26: NGT removed after passing clamp trial HD3 03/27: tolerated clears, OOB HD4 03/28: Advanced to 1/2 portion reg diet, cycled TF x 18 hours at 70cc/hr to provide full nutritional support. HD5 03/29: Tolerating cyclic TF's and small volume meals. + BM this morning. Patient cleared for d/chome with VNA and TF services. Important Studies and Lab Data: See below. Pathology: None. Microbiology: COVID-19 PCR (03/24): Not Detected. Labs: Lab Results Component Value Date WBC 6.6 03/25/2020 HGB 10.8 (L) 03/25/2020 HCT 33.3 (L) 03/25/2020 MCV 88.3 03/25/2020 PLATELET 239 03/25/2020 Lab Results Component Value Date NA 139 03/29/2020 K 4.2 03/29/2020 CL 105 03/29/2020 CO2 26 03/29/2020 BUN 17 03/29/2020 CREATININE 0.35 (L) 03/29/2020 GLUCOSE 110 03/26/2020 GLUCFASTING 110 (H) 03/29/2020 CALCIUM 8.8 03/29/2020 ESTGFR 121 03/29/2020 Lab Results Component Value Date ALT 26 03/24/2020 AST 16 03/24/2020 ALKPHOS 79 03/24/2020 BILITOT 0.4 03/24/2020 BILIDIR 0.1 03/24/2020 ALBUMIN 4.6 03/24/2020 PROT 7.4 03/24/2020 Pending Lab Data at Discharge: None. Studies: XR Abdomen 1 view (Generic) (03/24): IMPRESSION An enteric tube tip and side-port project over the stomach in satisfactory position. CT Abdomen & Pelvis w Contrast (03/24): IMPRESSION 1. Appearance concerning for obstruction at the level of gastrojejunostomy, as outlined above. 2. Mural thickening and mucosal hyperemia of the afferent loop of duodenum, concerning for infection, inflammation or ischemia. 3. Small amount of free fluid within the pelvis, possibly related to above. Discharge Exam: Last value Range last 12 hrs Temperature Temp: 36.7 ??C (98.1 ??F) Temp: [36.7 ??C (98.1 ??F)] Heart Rate Heart Rate: 79 Heart Rate: -- Blood Pressure BP: (!) 84/54 BP: (82-87)/(49-54) Respiratory Rate Resp: 17 Resp: [17-18] SpO2 SpO2: 92 % SpO2: [92 %-94 %] I/Os: I/O last 3 completed shifts: In: 2040 [P.O.:400; I.V.:30; NG/GT:1611] Out: 3800 [Urine:3800] I/O this shift: In: 287 [P.O.:100; NG/GT:187] Out: - Gen: NAD, alert & oriented x3, pain well-controlled. Pulm: CTAB, no crackles/wheezes, no SOB. IS encouraged. Card: RRR, no CP. Abd: Non-distended, soft, non-tender. Hypoactive bowel sounds, + flatus, LBM 03/29. J-tube with dsg CDI. 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 Ext: no edema, 2+ peripheral pulses Discharge Plans: Discharge to: Home VNA: Yes Name of facility: [facility] Contact information: and [phone] Discharge Conditions/Prognosis: Stable Discharge Medications: The following medications have been prescribed for you. If you notice any adverse reactions to your medications, please contact your primary care physician immediately or go to the nearest Emergency Department. Your Medications New Medications Dose Details metoclopramide 10 mg Tab Commonly known as: Reglan Take 1 tablet by mouth 4 times daily for 14 days. 10 mg Quantity: 56 tablet Refills: 0 Continued medications with new dosing Dose Details docusate sodium 100 mg Cap Commonly known as: Colace Take 1 capsule by mouth 2 times daily. What changed: ?? when to take this ?? reasons to take this 100 mg Refills: 0 omeprazole 40 mg Cpdr Commonly known as: PriLOSEC Take 1 capsule by mouth daily. What changed: when to take this 40 mg Quantity: 90 capsule Refills: 3 Continued medications, unchanged Dose Details acetaminophen 500 mg Tab Commonly known as: Tylenol Take 2 tablets by mouth every 6 hours as needed for Pain. 1,000 mg Refills: 0 cholecalciferol (Vitamin D3) 50 mcg (2,000 unit) Cap Take 2,000 Units by mouth daily. 2,000 Units Refills: 0 IRON ORAL Take 50 mg by mouth daily. Actually chelated amino acid Iron 50 mg Refills: [address]k-pfgozis DR 24,000-76,000 -120,000 unit Cpdr Commonly known as: Creon 24 Take 1-2 capsules by mouth 3 times daily (with meals). With Meals: Take 1-2 capsules by mouth. With Snacks: Take 1 capsule by mouth. 1-2 capsule Quantity: 270 capsule Refills: 3 Zinc 50 mg Tab Take 1 tablet by mouth daily. 1 tablet Refills: 0 Updated Allergies/ADRs: No Known Allergies Scheduled Appointments: Future Appointments Date Time Provider Department Center 04/03/2020 8:[address] [facility] HEM ONC [facility] 04/18/2020 2:00 PM LAB, THREE L Lab 3L [facility] 04/18/2020 3:00 PM Emely Galdamez MD [facility] SURG [facility] 04/18/2020 3:[address] [facility] SURG [facility] 04/21/2020 11:30 AM Morris Dozier MD [facility] Hem [facility] Outpatient Services/Studies: CBC (with Diff) Standing Status: Future Standing Exp. Date: 03/29/21 Comprehensive metabolic panel (non-fasting) Standing Status: Future Standing Exp. Date: 03/29/21 Prealbumin Standing Status: Future Standing Exp. 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 The encounter with the patient was in whole, or in part, for the following medical condition, which is the primary reason for home health care services: 59 y.o. 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 CT scan showed a massively dilated stomach most likely due to gastroparesis after discontinuation of her Reglan. In discussion with the provider, it is certified that, based on his/her findings, the following homeservices are medically necessary. HOME CARE ORDERS: RN ORDERS: Assess wound or incision, vital signs, cardiopulmonary status, nutrition, hydration, elimination, meds effectiveness and management. Reinforce education on health issues. Reinforce J-tube / TF teaching. HOME HEALTH CARE AGENCY: [facility], and [phone] Start of care: 24-48 hours after hospital discharge In discussion with the attending physician, it is certified that the clinical findings support that this patient is homebound because absences from home require considerable and taxing effort due to: malnutrition Please note that any additional orders needs or changes will need to be obtained from this patient'sPCP: Irving Wheeler MD [address] / [facility] [address] All VNA agencies which cover the area of patient's residence have been reviewed, either verbally or in writing, and patient/family have chosen the home health care agency noted. Question Response Notes Agency name and contact information [facility] Patient location post discharge Home What services are requested Registered Nurse Start date 03/29/2020 Responsible MD post discharge contact info PCP and Dr. 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 Please flush your J-tube with 20cc luke warm tap water before and after feedings, before and after any medications administered via the J-tube, daily, and as needed for patency. NO crushed meds via the J-tube! Dressings at Tube site: Yes - Please change your J-tube dressing every 3 days and as needed. Feeding Tube Type: J Tube Method of Administration: Pump w/IV pole Refill: 2 Question Response Notes Vendor / contact information [facility] Patient location post discharge Home Service requested Home tube feed supplies Start date 03/29/2020 Responsible MD post discharge contact info PCP and Dr. Galdamez Instructions Given to Patient at Discharge:. An After Visit Summary was printed and given to the patient. Patient Instructions [facility] Department of General Surgery Discharge Instructions CALL YOUR PHYSICIAN'S OFFICE IF: ??? You have a fever greater than 101 degrees Farenheit (38.3C) within one month of your surgery. ? ? You have diarrhea or vomiting for >24 hours, stop having bowel movements and/or passing flatus, have pain with urination. ??? You have worsening pain, not controlled with your pain medication. ??? You develop redness, swelling, or new drainage from your wound. Medications: [x] Pain Control [x] Non-narcotic pain medication - We recommend Tylenol 1000mg every 6 hours as needed for pain. NO Ibuprofen / NSAID's due to bleeding / ulcer risk post-operatively. - Do not take more than 4,000mg (4g) of tylenol in 24hours. 1. Constipation: Narcotics can cause severe constipation. Please take BOTH a stool softener and pro-motility/laxative agent whenever taking narcotics, unless otherwise advised. These are over the counter. (Stool Softeners: Colace, Surfak. Laxatives/Stimulants: Miralax, Milk of Magnesia, Senna, Bisacodyl). 2. Altered mental status: Narcotics can make you sleepy and have delayed reactions. Therefore, do not drive or operate any heavy machinery while taking narcotics. 3. Addictive: Narcotics are addictive. Please take as prescribed and wean down/decrease your dose as soon as you can tolerate. 4. Restricted: Narcotics are highly regulated. If you are running out of your prescription and feelyou will need more, plan ahead and call your Physician as these cannot be filled electronically or at night/over the weekend. Again, as your pain decreases, reduce your use of these medications. You donot need to use all of the pills provided. [x] Other Medication(s) - The remainder of your medications are listed in the first section of the After Visit Summary. - You will need to take a Proton Pump Inhibitor (such as Nexium, Protonix, etc.) once daily for at least 1 year after your Whipple surgery to help prevent the development of marginal ulcers. - You are being discharged on a 2 week course of Reglan to help with your delayed gastric emptying / gastroparesis. Dr. Galdamez will determine if refills of this medication are needed at your follow-up. Driving Restrictions: - No driving if you are too sore from surgery to enter or exit your vehicle comfortably, or if you are too sore to easily check your blind spot. No driving while using narcotic pain medications. Shower: - It is ok to shower. You can shower per usual routine and let soapy water run over your incision. Pat incision dry with a clean, dry towel. Do not submerge the wound under water (no swimming or soaking) for at least 6 weeks, or until approved by your surgeon. Diet: [x] You have been cleared to resume your regular diet - You may find it easier to eat smaller, more frequent meals after your surgery. - You should eat your meals sitting upright in a chair to help with digestion after your surgery. - If you feel full after eating, that is a great time to get up and go for a walk as gravity will help your stomach empty. - You may benefit from Boost or Ensure shakes once or twice daily while at home to help with your nutrition. This is a great way to get the nutrients your body needs to heal after surgery, without having to take in a lot of volume. [x] You have a J- tube through which tube feeds will be given. Please flush your J-tube with 20cc luke warm tap water before and after feedings, before and after any medications administered via the J-tube, daily, and as needed for patency. NO crushed meds via the J-tube! - Please change your J-tube dressing every 3 days and as needed. - Your Tube Feeding Formula is Peptamen AF which will be run CYCLIC for 18 hours per day from 6pm to12pm (OFF from 12pm to 6pm) at a rate of 70cc/hr. Activity: - It is normal to feel tired after surgery/hospitalization. Be as active as tolerated as this will improve recovery and prevent blood clots. - You should avoid any heavy lifting for 4 weeks after surgery. A gallon of milk is a good estimateof the maximum you should be lifting while your wounds heal. -We recommend taking several slow, short walks each day for the first two weeks, and gradually increase your distance. We recommend at least 4 times a day. Wound/Incision Care: Closure: Your skin incision is closed with: [x] Glue - There are sutures below the skin and the glue is the dressing. There is nothing to remove and the discoloration will go away in time. Infection: Observe for changes and alert the clinic if new/worsening redness or drainage. Things to avoid: Do not use creams, oils, or ointments on the wound. Keep wound open to air if it is not draining. Who to call? If you have concerns or questions: - During the day, it is best to call the [facility] to speak with the Surgery nurses. The number is [phone]. - During the night or weekends call the [facility] brake operator at [phone] and ask to speak to the surgery resident nutrition tech for general surgery. Please note: Your surgeon may not be Product Designer, especially during the night or on weekends, so be ready to describe yourself and your surgery when you call. Follow up appointments: Future Appointments Date Time Provider Department Center 04/03/2020 8:[address] [facility] HEM ONC [facility] 04/18/2020 2:00 PM LAB, THREE L Lab 3L [facility] 04/18/2020 3:00 PM Emely Galdamez MD [facility] SURG [facility] 04/18/2020 3:[address] [facility] SURG [facility] 04/21/2020 11:30 AM Morris Dozier MD [facility] Hem [facility] [x] Follow-up appointment with General Surgery has already been scheduled [] A request for a follow-up appointment has been made and you should receive information via phone/mail in the next week. If you do not hear anything, please call the clinic at [phone] to confirmor reschedule. If you need a prior authorization, please call the General Surgery Clinic nurses [phone] for prior authorizations assistance General Instructions None Follow-up Recommendations for Providers: - Routine post-hospital care. - You will need to take a Proton Pump Inhibitor (such as Nexium, Protonix, etc.) once daily for at least 1 year after your Whipple surgery to help prevent the development of marginal ulcers. - You are being discharged on a 2 week course of Reglan to help with your delayed gastric emptying /gastroparesis. Dr. Galdamez will determine if refills of this medication are needed at your follow-up. CC: Irving Wheeler MD Signed: Britany Villanueva APRN [facility] Surgical Oncology Service Team Pager #[phone] 03/29/2020 11:12 AM documented in this encounter Discharge Instructions Patient InstructionsBritany Villanueva APRN - 03/27/2020 12:25 PM EST [facility] Department of General Surgery Discharge Instructions CALL YOUR PHYSICIAN'S OFFICE IF: ??? You have a fever greater than 101 degrees Farenheit (38.3C) within one month of your surgery. ? ? You have diarrhea or vomiting for >24 hours, stop having bowel movements and/or passing flatus, have pain with urination. ??? You have worsening pain, not controlled with your pain medication. ??? You develop redness, swelling, or new drainage from your wound. Medications: [x] Pain Control [x] Non-narcotic pain medication - We recommend Tylenol 1000mg every 6 hours as needed for pain. NO Ibuprofen / NSAID's due to bleeding / ulcer risk post-operatively. - Do not take more than 4,000mg (4g) of tylenol in 24hours. 1. Constipation: Narcotics can cause severe constipation. Please take BOTH a stool softener and pro-motility/laxative agent whenever taking narcotics, unless otherwise advised. These are over the counter. (Stool Softeners: Colace, Surfak. Laxatives/Stimulants: Miralax, Milk of Magnesia, Senna, Bisacodyl). 2. Altered mental status: Narcotics can make you sleepy and have delayed reactions. Therefore, do not drive or operate any heavy machinery while taking narcotics. 3. Addictive: Narcotics are addictive. Please take as prescribed and wean down/decrease your dose as soon as you can tolerate. 4. Restricted: Narcotics are highly regulated. If you are running out of your prescription and feelyou will need more, plan ahead and call your Physician as these cannot be filled electronically or at night/over the weekend. Again, as your pain decreases, reduce your use of these medications. You donot need to use all of the pills provided. [x] Other Medication(s) - The remainder of your medications are listed in the first section of the After Visit Summary. - You will need to take a Proton Pump Inhibitor (such as Nexium, Protonix, etc.) once daily for at least 1 year after your Whipple surgery to help prevent the development of marginal ulcers. - You are being discharged on a 2 week course of Reglan to help with your delayed gastric emptying / gastroparesis. Dr. Galdamez will determine if refills of this medication are needed at your follow-up. Driving Restrictions: - No driving if you are too sore from surgery to enter or exit your vehicle comfortably, or if you are too sore to easily check your blind spot. No driving while using narcotic pain medications. Shower: - It is ok to shower. You can shower per usual routine and let soapy water run over your incision. Pat incision dry with a clean, dry towel. Do not submerge the wound under water (no swimming or soaking) for at least 6 weeks, or until approved by your surgeon. Diet: [x] You have been cleared to resume your regular diet - You may find it easier to eat smaller, more frequent meals after your surgery. - You should eat your meals sitting upright in a chair to help with digestion after your surgery. - If you feel full after eating, that is a great time to get up and go for a walk as gravity will help your stomach empty. - You may benefit from Boost or Ensure shakes once or twice daily while at home to help with your nutrition. This is a great way to get the nutrients your body needs to heal after surgery, without having to take in a lot of volume. [x] You have a J- tube through which tube feeds will be given. Please flush your J-tube with 20cc luke warm tap water before and after feedings, before and after any medications administered via the J-tube, daily, and as needed for patency. NO crushed meds via the J-tube! - Please change your J-tube dressing every 3 days and as needed. - Your Tube Feeding Formula is Peptamen AF which will be run CYCLIC for 18 hours per day from 6pm to12pm (OFF from 12pm to 6pm) at a rate of 70cc/hr. Activity: - It is normal to feel tired after surgery/hospitalization. Be as active as tolerated as this will improve recovery and prevent blood clots. - You should avoid any heavy lifting for 4 weeks after surgery. A gallon of milk is a good estimateof the maximum you should be lifting while your wounds heal. -We recommend taking several slow, short walks each day for the first two weeks, and gradually increase your distance. We recommend at least 4 times a day. Wound/Incision Care: Closure: Your skin incision is closed with: [x] Glue - There are sutures below the skin and the glue is the dressing. There is nothing to remove and the discoloration will go away in time. Infection: Observe for changes and alert the clinic if new/worsening redness or drainage. Things to avoid: Do not use creams, oils, or ointments on the wound. Keep wound open to air if it is not draining. Who to call? If you have concerns or questions: - During the day, it is best to call the [facility] to speak with the Surgery nurses. The number is [phone]. - During the night or weekends call the [facility] brake operator at [phone] and ask to speak to the surgery resident nutrition tech for general surgery. Please note: Your surgeon may not be Product Designer, especially during the night or on weekends, so be ready to describe yourself and your surgery when you call. Follow up appointments: Future Appointments Date Time Provider Department Center 04/03/2020 8:[address] [facility] HEM ONC [facility] 04/18/2020 2:00 PM LAB, THREE L Lab 3L [facility] 04/18/2020 3:00 PM Emely Galdamez MD [facility] SURG [facility] 04/18/2020 3:[address] [facility] SURG [facility] 04/21/2020 11:30 AM Morris Dozier MD [facility] Hem [facility] [place] [facility] [x] Follow-up appointment with General Surgery has already been scheduled [] A request for a follow-up appointment has been made and you should receive information via phone/mail in the next week. If you do not hear anything, please call the clinic at [phone] to confirmor reschedule. If you need a prior authorization, please call the General Surgery Clinic nurses [phone] for prior authorizations assistance documented in this encounter Medications at Time of Discharge Medication Sig Dispensed Refills Start Date End Date traMADoL (Ultram) 50 mg 1 tablet 0 03/01/2020 Tablet sucralfate (Carafate) 1 Every 6 hours. 0 07/28/19 20 gram Tablet msfjiw-zdhlfusn-dtbpaeq as directed 0 03/01/2020 DR Kiser 24) 24,000-76,000 -120,000 unit Capsule, Delayed Release(E.C.) esomeprazole (NexIUM) 40 Every 12 hours. 0 2019 mg Capsule, Delayed Release(E.C.) docusate sodium (Colace) 1 capsule 0 03/29/2020 100 mg Capsule acetaminophen (Tylenol) 2 tablets 0 03/01/2020 500 mg Tablet omeprazole (PriLOSEC) 40 Take 1 capsule by 90 capsule 3 03/12 mg Capsule, Delayed mouth daily. Release(E.C.) ferrous sulfate (IRON Take 50 mg by 0 ORAL) mouth daily. Actually chelated amino acid Iron cholecalciferol, Vitamin Take 4,000 Units 0 D3, 50 mcg (2,000 unit) by mouth daily. Capsule metoclopramide (Reglan) Take 1 tablet by 56 tablet 0 201904/12/2020 10 mg Tablet mouth 4 times daily for 14 days. acetaminophen (Tylenol) Take 2 tablets by 0 03/0109/04/2020 500 mg Tablet mouth every 6 hours as needed for Pain. klmllw-xtiljbyc-jcsnids Take 1-2 capsules 270 capsule 3 02/1001/26/2021 DR Kiser 24) by mouth 3 times 24,000-76,000 -120,000 daily (with unit Capsule, Delayed meals). With Release(E.C.) Meals: Take 1-2 capsules by mouth. With Snacks: Take 1 capsule by mouth. documented as of this encounter Progress Notes Marline Avendaño, RD - 03/29/2020 8:33 AM EST Nutrition Progress Note Mary Kay Gonzalez is a 59 y.o. 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 CT scan showed a massively dilated stomach most likely due to gastroparesis after discontinuation of her Reglan. NGT has been placed for decompression and reglan has been restarted. Reason for intervention: Tube-feeding Nutrition Recommendations: Peptamen AF 70ml/hour over 18 hours 1260ml 1512kcals 96g protein 1018ml free water meets 100% RDI Monitor weight trends Follow up with outpatient RD All Active TF Orders: Tubefeeding Orders (From admission, onward) Start Dose/Rate Route Frequency Ordered Stop tube feeding diet Peptamen AF 70 mL/hr Per J Tube CONTINUOUS 03/25/20 0906 Active Orders Diet Regular diet Frequency: Effective Now Number of Occurrences: Until Specified Order Comments: 1/2 portion Enteral access: J tube Oxygen Therapy/airway: O2 Device: None (Room air) Lab Results Component Value Date NA 139 03/29/2020 K 4.2 03/29/2020 CL 105 03/29/2020 CO2 26 03/29/2020 BUN 17 03/29/2020 CREATININE 0.35 (L) 03/29/2020 GFRAA 140 03/29/2020 MAGNESIUM 0.84 03/25/2020 CALCIUM 8.8 03/29/2020 PHOS 3.9 03/25/2020 AST 16 03/24/2020 ALT 26 03/24/2020 ALKPHOS 79 03/24/2020 BILITOT 0.4 03/24/2020 BILIDIR 0.1 03/24/2020 IRON 22 (L) 02/08/2020 No results found for: POCGLU Skin Status: Shift Pressure Injury Prevention Occiput: No Injury Thoracic Spine: No Injury Sacral: No Injury Ischial - left: No Injury Ischial - right: No Injury Heel - left: No Injury Heel - right: No Injury Elbow - left: No Injury Elbow - right: No Injury Device Sites: O2 sat monitor, IV sites, other (see comments)(Jtube) Other Sites: JT Relevant medications: creon 24 reglan Last Bowel Movement: 03/29/20 I/O from last 2 shifts: Intake/Output Summary (Last 24 hours) at 03/29/2020 0833 Last data filed at 03/29/2020 0738 Gross per 24 hour Intake 1376 ml Output 3200 ml Net -1824 ml Admit Weight: 45.81 kg Estimated body mass index is 17.34 kg/m?? as calculated from the following: Height as of this encounter: 162.6 cm (5' 4). Weight as of this encounter: 45.8 kg (101 lb). [place]one Body Weight: 54.4 kg Usual Body Weight: 120 lbs/54.4 kg per patient report (02/24/20) Wt Readings from Last 10 Encounters: 03/24/20 45.8 kg (101 lb) 03/21/20 47.4 kg (104 lb 9.6 oz) 03/20/20 47.6 kg (105 lb) 02/23/20 52.3 kg (115 lb 4.8 oz) 02/08/20 52.3 kg (115 lb 3.2 oz) 02/01/20 52.9 kg (116 lb 10 oz) 01/27/20 52.6 kg (116 lb) 01/26/20 52.8 kg (116 lb 6.4 oz) 12/14/19 52.2 kg (115 lb) 12/07/19 53.5 kg (118 lb) 1 month: 12% wt loss over a month - significant (meets one criteria for severe malnutrition) Assessment: Nutrition intake and intake history/Interview: TF changed to cyclic. Pt tolerating rate. Pt states she has noted weight loss d/t poor intake over the past month. Pt states she will call Yosef Frausto RD for follow up and questions after discharge. Pt declined nutrition concerns. Estimated needs: Previously assessed: Calories: 1550 (30 kcal/kg admit WT) Protein: 75-100 grams (1.5-2.0 g/kg IBW) Nutrition Focused Physical Exam (NFPE): Performed on 03/29/2020. Subcutaneous fat loss at Orbital region: Mild Upper arm region (triceps/biceps): None present Thoracic and lumbar region (ribs, lower back and maxillary line): None present Lean muscle loss to [place] region (temporalis muscle): Mild Clavicle bone region (pectoralis major): Moderate Dorsal hand (interosseous muscle): Mild Shoulder (deltoid): Moderate Scapular bone region (latissimus dorsi, trapezius muscles): Moderate Thigh region (quadriceps muscle): Moderate Posterior calf region (gastrocnemius muscle): Moderate Fluid accumulation: Not assessed Protein-calorie Malnutrition: <75% of estimated energy requirement for > or equal to 1 month, >5% weight loss in 1 month and Moderate lean muscle loss is consistent with moderate (non-severe) protein-calorie malnutrition in the setting of chronic illness(Celestino et al, JPEN J Parenteral EnteralNutr. 2012 September; 36(3): 273-83) Nutrition to continue to follow up while inpatient Marline Avendaño RD Pager #:[phone] Jenniffer Montanez RN - 03/28/2020 3:44 PM EST OUTCOME EVALUATION NOTE: OUTCOME SUMMARY: AOx4, BP's soft, team aware, otherwise VSS. Diet advanced to regular, 1/2 portions - tolerating well. TF switched to cyclic @1200. Adequate UOP, no BM this shift. Denies pain, but does endorse feeling bloated after meals. Ambulating in halls independently. Will continue to monitor. PLAN MOVING FORWARD: Encourage mobilization Cyclic TF DC tomorrow INDIVIDUALIZED FALL PREVENTION INTERVENTIONS: Patient-specific fall risk factors per assessment: [current deficits]: Lines, low BP Assistance [level of assistance required for transfers and ambulation]: ind Supervision [direct monitoring required during toileting and ADLs]: Eyes on Surveillance [continuous indirect monitoring]: Masimo, hourly rounding, call encinas in reach Patient-specific fall prevention interventions for sensory deficits provided, if applicable: [X] N/A CPG GOAL OUTCOME EVALUATION: Emely Sotelo MD - 03/28/2020 8:18 AM EST Surgical Oncology Inpatient Progress Note Patient Name: Mary Kay Gonzalez ; Age: 2 1960; 59 y.o. Room/Bed: 421/421-A Today's Date: 03/28/20 ID: Mary Kay Gonzalez is a 59 y.o. 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 Procedures this Hospitalization: None 24 Hour Events/Subjective: - NAEON - tolerated clears - interested in advancing diet - OOB - reports poor sleep - denies nausea Hospital Course: HD 1 03/25: NGT remained in place to CLWS, continued on reglan HD 2 03/26: NGT removed after passing clamp trial HD 3 03/27: tolerated clears, OOB In Hospital Issues: Active Hospital Problems Diagnosis ??? Gastroparesis Resolved Hospital Problems No resolved problems to display. Objective Last value Range last 24hrs Temperature Temp: 36.7 ??C (98.1 ??F) Temp: [36.7 ??C (98.1 ??F)-37.1 ??C (98.8 ??F)] Heart Rate Heart Rate: 79 Heart Rate: -- Blood Pressure BP: 110/55 BP: (94-110)/(53-65) Respiratory Rate Resp: 16 Resp: [13-16] SpO2 SpO2: 96 % SpO2: [95 %-97 %] RA Physical Exam Gen: NAD CV: RRR Pulm: nonlabored breathing on room air Abd: non-distended, soft, non-tender; midline incision healing well; J tube unremarkable Ext: SCDs in place. Skin: warm, dry Drains: J tube 24 Hour I/O's: I/O last 3 completed shifts: In: 3620 [P.O.:1050; I.V.:1129; NG/GT:1441] Out: 3150 [Urine:3150] Admit Weight: 45.81 kg Current Weight: Weight: 45.8 kg (101 lb) Labs: No results for input(s): WBC, HGB, HCT, PLATELET, PT, INR, PTT in the last 72 hours. Recent Labs 03/28/20 0438 03/27/20 0640 03/26/20 0400 NA 141 140 142 K 4.0 4.2 4.0 CL 106 106 106 CO2 28 26 28 BUN 14 11 10 CREATININE 0.31* 0.40* 0.36* GLUCOSE -- -- 110 CALCIUM 8.7 8.6 8.7 Micro: 03/24/2020 COVID-19 PCR negative New Imaging: None Assessment / Plan: Mary Kay Gonzalez is a 59 y.o. 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 CT scan showed a massively dilated stomach most likely due to gastroparesis after discontinuation of her Reglan. NGT placed for decompression and reglan restarted. NGT with low residual and removed on 03/26. TFs at goal. Tolerating clears without nausea and interested in advancing diet today. Has been ambulating without issues. Progressing well towards discharge - cycle TF with 100% formula for nutrition - 1/2 portion regular diet - PO reglan - possible discharge tomorrow NEURO: PRN tyl for pain. CV: Hemodynamically normal. PULM: Encourage OOB/IS GI/FEN: Clear Liquid (With [place]), PO Reglan; replete electrolytes PRN; cycle TFs RENAL: UOP adequate. HLIV ENDO: NITISH HEME: DVT ppx SQH ID: NITISH MSK: NITISH PPX: PPI, IS, SCDs LINES: PIV DISPO: Floor status, Attempt Cardiopulmonary Resuscitation - Inpatient Signed: Alba Mota MD Surgical Oncology Service Team Pager #[phone] 03/28/20 8:25 AM Surgery attending addendum I agree with Dr. Mota's note above. I saw Mary Kay when she was walking the halls today. She said I may have overdid it-I had a pretty big breakfast and then most of a cheeseburger for lunch and feeling quite bloated so that is why I am trying to walk it off. We discussed taking it slow now that she is getting 100% of her nutritional needs back on the J-tubewith an attempt to cycle her at 18 hours on and 6 hours off. We will plan to continue the Reglan for2 more weeks after discharge- hopefully tomorrow-and then I will see her back in 3 weeks so I can geta sense how she is doing 1 week off Reglan. Rosario can slowly try to cycle her tube feeds and weanher tube feeding down as tolerated as an outpatient. Reid Galdamez MD 03/28/2020 2:25 PM This note was created using [employer]) voice recognition software. Jaycee Brumfield - 03/27/2020 12:56 PM EST Surgical Oncology Inpatient Progress Note Patient Name: Mary Kay Gonzalez ; Age: 2 1960; 59 y.o. Room/Bed: 421/[facility] Today's Date: 03/27/20 ID: Mary Kay Gonzalez is a 59 y.o. 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 Procedures this Hospitalization: None 24 Hour Events/Subjective: - feels well, endorses appetite this AM - tolerated clears yesterday Hospital Course: HD 1 03/25: NGT remained in place to CLWS, continued on reglan HD 2 03/26: NGT removed after passing clamp trial In Hospital Issues: Active Hospital Problems Diagnosis ??? Gastroparesis Resolved Hospital Problems No resolved problems to display. Objective Last value Range last 24hrs Temperature Temp: 36.8 ??C (98.2 ??F) Temp: [36.6 ??C (97.9 ??F)-37.1 ??C (98.8 ??F)] Heart Rate Heart Rate: 79 Heart Rate: [75-85] Blood Pressure BP: 100/65 BP: (87-100)/(57-65) Respiratory Rate Resp: 18 Resp: [14-18] SpO2 SpO2: 96 % SpO2: [95 %-96 %] RA Physical Exam Gen: NAD CV : RRR Pulm: breathing comfortably, no respiratory distress Abd: non-distended, soft, non-tender; midline incision healing well; J tube unremarkable Ext: SCDs in place. Skin: warm, dry Drains: J tube 24 Hour I/O's: I/O last 3 completed shifts: In: 4531 [P.O.:275; I.V.:2511; NG/GT:1745] Out: 3425 [Urine:2900; Other:525] Admit Weight: 45.81 kg Current Weight: Weight: 45.8 kg (101 lb) Labs: Recent Labs 03/25/20 0335 WBC 6.6 HGB 10.8* HCT 33.3* PLATELET 239 Recent Labs 03/27/20 0640 03/26/20 0400 03/25/20 0335 NA 140 142 139 K 4.2 4.0 3.7 CL 106 106 104 CO2 26 28 27 BUN 11 10 15 CREATININE 0.40* 0.36* 0.47* GLUCOSE -- 110 -- CALCIUM 8.6 8.7 8.7 MAGNESIUM -- -- 0.84 PHOS -- -- 3.9 Micro: None New Imaging: No new imaging Assessment / Plan: Mary Kay Gonzalez is a 59 y.o. 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 CT scan showed a massively dilated stomach most likely due to gastroparesis after discontinuation of her Reglan. NGT placed for decompression and reglan restarted. Passed NGT clamp trial with only 25cc back after 4H clamped. Tolerating Clears. Reglan appears to behelping with gastric emptying, no indication for endoscopy at this time. NEURO: PRN tyl for pain. CV: Hemodynamically normal. PULM: Encourage OOB/IS GI/FEN: Clear Liquid, Reglan 10mg q6h IV - PO tomorrow if continues to do well; replete electrolytesPRN; tube feeds at goal; continuous. Will adjust TF to give full dose but cycled - discuss with Nutrition RENAL: UOP adequate. HLIV ENDO: NITISH HEME: DVT ppx SQH ID: NITISH MSK: NITISH PPX: PPI, IS, SCDs LINES: PIV DISPO: Floor status, Attempt Cardiopulmonary Resuscitation - Inpatient Signed: JAYCEE BRUMFIELD MD Surgical Oncology Service Team Pager #[phone] 03/27/20 12:56 PM Harley Hoyos MD - 03/26/2020 8:15 AM EST Surgical Oncology Inpatient Progress Note Patient Name: Mary Kay Gonzalez ; Age: 2 1960; 59 y.o. Room/Bed: [address] [place] [address] Today's Date: 03/26/20 ID: Mary Kay Gonzalez is a 59 y.o. 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 Procedures this Hospitalization: None 24 Hour Events: - feels well, no nausea, BM this AM. Hospital Course: HD 1 03/25: NGT placed, reglan restarted HD 2 03/26: NGT remained to LCWS, output decreased overnight Subjective: Feels better than last night, denies nausea, +BM. In Hospital Issues: Active Hospital Problems Diagnosis ??? Gastroparesis Resolved Hospital Problems No resolved problems to display. Objective Last value Range last 24hrs Temperature Temp: 36.9 ??C (98.4 ??F) Temp: [36.8 ??C (98.2 ??F)-37.2 ??C (98.9 ??F)] Heart Rate Heart Rate: 82 Heart Rate: [82-88] Blood Pressure BP: 102/70 BP: (95-110)/(57-74) Respiratory Rate Resp: 15 Resp: [14-16] SpO2 SpO2: 95 % SpO2: [95 %-97 %] Physical Exam Gen: NAD HEENT: NGT in place with light bilious output CV : RRR Pulm: breathing comfortably, no respiratory distress Abd: non-distended, soft, nontender Ext: SCDs in place. Skin: warm, dry Drains: NGT J tube 24 Hour I/O's: I/O last 3 completed shifts: In: 4251 [P.O.:240; I.V.:2564; NG/GT:1447] Out: 3160 [Urine:1900; Other:1260] Admit Weight: 45.81 kg Current Weight: Weight: 45.8 kg (101 lb) Labs: Recent Labs 03/25/20 0335 03/24/20 1200 WBC 6.6 7.5 HGB 10.8* 14.5 HCT 33.3* 45.3 PLATELET 239 307 Recent Labs 03/26/20 0400 03/25/20 0335 03/24/20 1214 NA 142 139 140 K 4.0 3.7 3.8 CL 106 104 101 CO2 28 27 27 BUN 10 15 17 CREATININE 0.36* 0.47* 0.59* GLUCOSE 110 -- 128 CALCIUM 8.7 8.7 9.9 MAGNESIUM -- 0.84 -- PHOS -- 3.9 -- Micro: None New Imaging: No new imaging Assessment / Plan: Mary Kay Gonzalez is a 59 y.o. 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 CT scan showed a massively dilated stomach most likely due to gastroparesis after discontinuation of her Reglan. NGT has been placed for decompression and reglan has been restarted. Output only 300cc over last 10 hours prior to my evaluation at 0700. Clamp NGT today and remove if output less than 300cc after suction re-connected 4 hours later (1115). Advance to clears if tube removed. GI consult if clamp trial is unsuccessful for evaluation of GJ anastomosis. NEURO: PRN tyl for pain. CV: Hemodynamically normal. PULM: Encourage OOB/IS GI/FEN: Sips and Chips (Give Meds), Reglan 10mg q6h; replete electrolytes PRN; tube feeds at goal; continuous. Four hour clamp trial this AM. RENAL: UOP adequate. mIVF decreased to 50ml/hr. ENDO: NITISH HEME: DVT ppx SQH ID: NITISH MSK: NITISH PPX: PPI, IS, SCDs LINES: PIV DISPO: Floor status, Attempt Cardiopulmonary Resuscitation - Inpatient Signed: Harley Hoyos MD Surgical Oncology Service Team Pager #[phone] 03/26/20 8:15 AM Joseph Estrada, RD - 03/25/2020 12:26 PM EST Nutrition Initial Note Mary Kay Gonzalez is a 59 y.o. 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 CT scan showed a massively dilated stomach most likely due to gastroparesis after discontinuation of her Reglan. NGT has been placed for decompression and reglan has been restarted. Reason for intervention: Tube-feeding Nutrition Recommendations: Continue with full support tube feedings of Peptamen AF with a goal rate of 52 ml per hour as ordered. Labs: suggest daily BMP, magnesium and phosphorus; replete to normal levels as needed. Nutrition to follow up early next week. All Active TF Orders: Tubefeeding Orders (From admission, onward) Start Dose/Rate Route Frequency Ordered Stop 03/25/20 0915 tube feeding diet Peptamen AF 1,248 mL 52 mL/hr Per J Tube CONTINUOUS 03/25/20 0906 At goal, this will provide 1248 ml formula, 1498 calories, 94 grams protein, 1012 ml water from formula and 99.8% of RDI's for vitamins and minerals. Enteral access: J tube Oxygen Therapy/airway: O2 Device: None (Room air) Lab Results Component Value Date NA 139 03/25/2020 K 3.7 03/25/2020 CL 104 03/25/2020 CO2 27 03/25/2020 BUN 15 03/25/2020 CREATININE 0.47 (L) 03/25/2020 GFRAA 127 03/25/2020 MAGNESIUM 0.84 03/25/2020 CALCIUM 8.7 03/25/2020 PHOS 3.9 03/25/2020 AST 16 03/24/2020 ALT 26 03/24/2020 ALKPHOS 79 03/24/2020 BILITOT 0.4 03/24/2020 BILIDIR 0.1 03/24/2020 IRON 22 (L) 02/08/2020 No results found for: POCGLU Skin Status: Shift Pressure Injury Prevention Occiput: No Injury Thoracic Spine: No Injury Sacral: No Injury Ischial - left: No Injury Ischial - right: No Injury Heel - left: No Injury Heel - right: No Injury Elbow - left: No Injury Elbow - right: No Injury Device Sites: O2 sat monitor, IV sites, NGT Other Sites: J tube Relevant medications: LR at 75 ml/hr, colace, reglan, protonix, others noted Last Bowel Movement: 03/24/20 I/O from last 2 shifts: Intake/Output Summary (Last 24 hours) at 03/25/2020 1226 Last data filed at 03/25/2020 1147 Gross per 24 hour Intake 2078 ml Output 1460 ml Net 618 ml Admit Weight: 45.81 kg Estimated body mass index is 17.34 kg/m?? as calculated from the following: Height as of this encounter: 162.6 cm (5' 4). Weight as of this encounter: 45.8 kg (101 lb). [place] Body Weight: 54.4 kg Usual Body Weight: 120 lbs/54.4 kg per patient report (02/24/20) Wt Readings from Last 10 Encounters: 03/24/20 45.8 kg (101 lb) 03/21/20 47.4 kg (104 lb 9.6 oz) 03/20/20 47.6 kg (105 lb) 02/23/20 52.3 kg (115 lb 4.8 oz) 02/08/20 52.3 kg (115 lb 3.2 oz) 02/01/20 52.9 kg (116 lb 10 oz) 01/27/20 52.6 kg (116 lb) 01/26/20 52.8 kg (116 lb 6.4 oz) 12/14/19 52.2 kg (115 lb) 12/07/19 53.5 kg (118 lb) 1 month: 12% wt loss over a month - significant (meets one criteria for severe malnutrition) Assessment: Nutrition intake and intake history/Interview: abdominal pain, nausea and emesis for the last week and a half, coinciding with d/c of reglan; also reduced home tube feedings to 500 ml from 750 ml. Estimated needs: Previously assessed: Calories: 1550 (30 kcal/kg admit WT) Protein: 75-100 grams (1.5-2.0 g/kg IBW) Nutrition Focused Physical Exam (NFPE): Not performed - due to time constraint Protein-calorie Malnutrition: Not identified but at high risk given 12% wt loss in a month, decreased oral intake and decrease of tube feeding intake (Celestino et al, JPEN J Parenteral Enteral Nutr. 2011; 36(3): 273-83) Nutrition to continue to follow up while inpatient JOSEPH ESTRADA RD Pager #:[phone] Emely Galdamez MD - 03/25/2020 8:49 AM EST Surgical Oncology Inpatient Progress Note Patient Name: Mary Kay Gonzalez ; Age: 2 1960; 59 y.o. Room/Bed: 421/[facility] Today's Date: 03/25/20 ID: Mary Kay Gonzalez is a 59 y.o. 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 Procedures this Hospitalization: None 24 Hour Events: Admitted and NGT placed with return of 800cc of gastric contents Hospital Course: HD 1: NGT placed, reglan restarted Subjective: Feels better than last night, denies nausea, +flatus. In Hospital Issues: Active Hospital Problems Diagnosis ??? Gastroparesis Resolved Hospital Problems No resolved problems to display. Objective Last value Range last 24hrs Temperature Temp: 36.8 ??C (98.2 ??F) Temp: [36.4 ??C (97.5 ??F)-37.3 ??C (99.1 ??F)] Heart Rate Heart Rate: 88 Heart Rate: [88-114] Blood Pressure BP: 98/63 BP: (95-130)/(61-113) Respiratory Rate Resp: 14 Resp: [9-30] SpO2 SpO2: 96 % SpO2: [95 %-100 %] Physical Exam Gen: NAD HEENT: NGT in place CV : RRR Pulm: breathing comfortably, no respiratory distress Abd: non-distended, soft, nontender Ext: SCDs in place. Skin: warm, dry Drains: NGT J tube 24 Hour I/O's: I/O last 3 completed shifts: In: 801 [P.O.:240; I.V.:531; NG/GT:30] Out: 410 [Urine:350; Other:60] Admit Weight: 45.81 kg Current Weight: Weight: 45.8 kg (101 lb) Labs: Recent Labs 03/25/20 0335 03/24/20 1200 WBC 6.6 7.5 HGB 10.8* 14.5 HCT 33.3* 45.3 PLATELET 239 307 Recent Labs 03/25/20 0335 03/24/20 1214 NA 139 140 K 3.7 3.8 CL 104 101 CO2 27 27 BUN 15 17 CREATININE 0.47* 0.59* GLUCOSE -- 128 CALCIUM 8.7 9.9 MAGNESIUM 0.84 -- PHOS 3.9 -- Micro: None New Imaging: Ct Abdomen & Pelvis W Contrast Result Date: 03/24/2020 EXAMINATION: CT ABDOMEN AND PELVIS W CONTRAST CLINICAL HISTORY: Abdominal pain, fever, post-op - Include more detail below Abd pain s/p wipple, vomiting TECHNIQUE: Helical CT of the abdomen and pelvis was performed following the intravenous administration of 66 mL Omnipaque 350. COMPARISON: CT abdomenand pelvis 02/02/2020 FINDINGS: Lower chest: interval decrease in size of pleural- based nodule, now measuring 4 mm, previously measured 7 mm (920 series 3 image 6). Liver: Normal size and attenuation, and without lesions. Bile ducts: Nondilated. Gallbladder: Absent. Pancreas: Status post Whipple. Normal attenuation without ductal dilatation of the pancreatic remnant. Spleen: Normal. Adrenals: Normal. Kidneys: Normal. Urinary Bladder: Normal. Vasculature: No abdominal aortic aneurysm. Lymph Nodes: No enlarged lymph nodes. Bowel: Post Whipple changes with [id number] loop gastrojejunostomy. A jejunostomy tube in place downstream from the anastomosis. The stomach is distended with fluid material. Thesmall bowel distal to the gastrojejunostomy is decompressed. There is mural thickening and mild mucosal hyperemia involving the distal two thirds of the afferent duodenal loop. No small bowel wall thickening or dilation of the efferent limb. No wall thickening or dilation of the large bowel. Peritoneum and mesentery: Small amount of free fluid within the pelvis. No free air. Abdominal wall: Normal. Reproductive organs: Normal. Osseous structures: Lumbar scoliosis convex to the left. No suspicious lesions. 1. Appearance concerning for obstruction at the level of gastrojejunostomy, as outlined above. 2. Mural thickening and mucosal hyperemia of the afferent loop of duodenum, concerning for infection, inflammation or ischemia. 3. Small amount of free fluid within the pelvis, possibly related to above. I, Justo Almaguer, discussed the result(s) with Dr. Palmer, and Emergency Physician on 03/24/2020 2:50 PM and verified that (s)he understood these results. I have personally reviewed the image(s) and the resident's interpretation and agree with the findings, Benjamin Ochoa MD at 03/24/2020 3:07 PM Thank you for letting us participate in the care of this patient. For questions regarding this report, radha linda contact the number below. Electronically signed by: Benjamin Ochoa MD, [facility] ([phone]), at 03/24/2020 3:07 PM Xr Abdomen 1 View (generic) Result Date: 03/24/2020 EXAMINATION: XR ABDOMEN 1 VIEW (GENERIC) CLINICAL HISTORY: confirm NGT placement TECHNIQUE: AP abdominal radiograph limited for the purpose of assessing enteric tube placement. COMPARISON: CT abdomen pelvis dated 03/24/2020. FINDINGS: An enteric tube is present with tip and side-port projecting over the stomach. No dilated loops of bowel are present in the visualized mid to upper abdomen. The visualized lungs are clear. The left costophrenic angle and lung apices are excluded from the study. Surgical clips project over the central abdomen. Contrast is present in the bilateral kidneys. An enteric tube tip and side-port project over the stomach in satisfactory position. I have personally reviewed the image(s) and the resident's interpretation and agree with the findings, Arabella Berman MD at 03/24/2020 5:17 PM Thank you for letting us participate in the care of this patient. For questions regarding this report, please contact the number below. Electronically signed by: Arabella Berman MD, [facility] ([phone]), at 03/24/2020 5:17 PM Assessment / Plan: Mary Kay Gonzalez is a 59 y.o. 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 CT scan showed a massively dilated stomach most likely due to gastroparesis after discontinuation of her Reglan. NGT has been placed for decompression and reglan has been restarted. Keep NGT for today to LCWS and plan for clamp trial tomorrow. NEURO: PRN tyl for pain. CV: Hemodynamically normal. PULM: Encourage OOB/IS GI/FEN: Sips and Chips (Give Meds), Reglan 10mg q6h; replete electrolytes PRN; increase tube feeds to full goal and run continuously RENAL: UOP adequate. LR @ 75ml/hr ENDO: NITISH HEME: DVT ppx SQH ID: NITISH MSK: NITISH PPX: PPI, IS, SCDs LINES: PIV DISPO: Floor status, Attempt Cardiopulmonary Resuscitation - Inpatient Signed: Harley Hoyos MD Surgical Oncology Service Team Pager #[phone] 03/25/20 8:50 AM Surgery Attending Addendum I have seen and examined Mary Kay this afternoon-Friday, 03/25/2020. I have reviewed the laboratory data.?My exam is unchanged from Dr. Dr. Casey' note above. The assessment and plan were formulated in discussion with me and I agree with them as documented. Harley called me this morning after a.m. rounds and I had spoken to Dr. Brumfield yesterday afternoon/evening when she presented to the ED with a gastric outlet obstruction type picture-impressive CT as noted above showing gastric distention. An NG tube was placed with copious bilious output. When I saw her this morning she was on tube feeding at about 50 cc an hour via the J-tube and the NGwas nicely in place some pain nicely with bilious output. Her abdomen was soft, nondistended and essentially nontender. Midline laparotomy incision/scar healing nicely. J-tube in place. We discussed a plan, as above, to continue with NG decompression and consider a NG clamp trial tomorrow. 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 At this point we need to consider NG decompression as above, IV promotility agent such as Reglan and nutritional support via the J-tube which is downstream from all the Whipple anatomy. I told her that at best case she would be here probably until Friday assuming the NG could be removed tomorrow after the clamp trial, she could be trialed on the on Friday with resumption of some oral intake and full nutritional support via the J-tube with possible discharge Friday as long as all goes well. Hemay also have some swelling or marginal ulcer formation at the GJ anastomosis which is contributing to these gastric outlet obstructive symptoms in which case if the clamp trial is not able to be successful and we would consider GI consult with upper endoscopy for Friday. Reid Galdamez MD 03/25/2020 3:50 PM This note was created using [employer] voice recognition software. documented in this encounter H&P Notes Emely Galdamez MD - 03/24/2020 4:04 PM EST [facility] Department of General Surgery Inpatient Admission Note CC: Emesis, poor PO tolerance HPI: Mary Kay Gonzalez is a 59 y.o. 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 She stopped reglan 9 days ago late last week worsening epigastric abdominal pain thatlasted about half the day with occasional nausea. On Friday, her tube feeds were reduced to 500cc from 750cc on and seems to be tolerating them. She has not been doing well particularly over the last2-3 days. Her first episode of emesis was on Friday and has continued in addition to decreased POintake - 3 glasses of water per day the last 3 days. Emesis does give her relief of her nausea and is non-bilious. She has been having daily bowel movements which have been normal. No hematochezia, fevers, shortness of breath or chest pain. PM/SH: Past Medical History: Diagnosis Date ??? Arthritis ??? Cancer Past Surgical History: Procedure Laterality Date ??? PRO ENDOSCOPIC US EXAM, ESOPH N/A 11/25/2019 UPPER EUS- ENDOSCOPIC ULTRASOUND performed by Pedrito Arrieta MD at [facility] ENDOSCOPY ??? PRO INSERT TUBE-BOWEL, ENTERAL ALIMENT N/A 02/23/2020 @JEJUNOSTOMY TUBE PLACEMENT (WRVU 2.62) performed by Emely Galdamez MD at [facility] MAIN OR ??? PRO OMENTAL FLAP, INTRA-ABDOMINAL 02/23/2020 @OMENTAL FLAP, INTRA-ABDOMINAL (WRVU 6.54) performed by Emely Galdamez MD at [facility] MAIN OR ??? PRO PART REMV PANC, PROX+PART DUOD+ANAST N/A 02/23/2020 @PANCREATECTOMY, WHIPPLE TYPE WITH PANCREATOJEJUNOSTOMY (WRVU 52.79) performed by Adri Galdamez MD at [facility] MAIN OR ??? PRO UNLISTED PX PNCRS N/A 02/23/2020 PANCREATIC STENT INSERTION (WRVU 18.28) performed by Emely Galdamez MD at [facility] MAIN OR ALL: No Known Allergies MED: No current facility-administered medications on file prior to encounter. Current Outpatient Medications on File Prior to Encounter Medication Sig Dispense Refill ??? Zinc 50 mg Tablet Take 1 tablet by mouth daily. Pt unsure of Zinc dosing ??? acetaminophen (Tylenol) 500 mg Tablet Take 2 tablets by mouth every 6 hours as needed for Pain. ??? vhnbyd-nntvjvec-nvwhkcs DR (Creon 24) 24,000-76,000 -120,000 unit Capsule, Delayed Release(E.C.)Take 1-2 capsules by mouth 3 times daily (with meals). With Meals: Take 1-2 capsules by mouth. With Snacks: Take 1 capsule by mouth. 270 capsule 3 ??? docusate sodium (Colace) 100 mg Capsule Take 1 capsule by mouth 2 times daily as needed for Constipation. ??? ferrous sulfate (IRON ORAL) Take 50 mg by mouth daily. Actually chelated amino acid Iron ??? omeprazole (PriLOSEC) 40 mg Capsule, Delayed Release(E.C.) Take 40 mg by mouth Daily. ??? cholecalciferol, Vitamin D3, 50 mcg (2,000 unit) Capsule Take 2,000 Units by mouth daily. Social history: Social History Socioeconomic History ??? Marital status: Spouse name: Not on file ??? Number of children: Not on file ??? Years of education: Not on file ??? Highest education level: Not on file Occupational History ??? Not on file Social Needs ??? Financial resource strain: Not on file ??? Food insecurity Worry: Not on file Inability: Not on file ??? Transportation needs Medical: Not on file Non-medical: Not on file Tobacco Use ??? Smoking status: Former Smoker Packs/day: 0.50 Types: Cigarettes Quit date: 1994 Years since quittin.8 ??? Smokeless tobacco: Never Used ??? Tobacco comment: never vape Substance and Sexual Activity ??? Alcohol use: Not Currently Comment: none since 05/12/2019 ??? Drug use: Never ??? Sexual activity: Not on file Comment: deferred Lifestyle ??? Physical activity Days per week: Not on file Minutes per session: Not on file ??? Stress: Not on file Relationships ??? Social connections Talks on phone: Not on file Gets together: Not on file Attends zoroastrianism service: Not on file Active member of club or organization: Not on file Attends meetings of clubs or organizations: Not on file Relationship status: Not on file ??? Intimate partner violence Fear of current or ex partner: Not on file Emotionally abused: Not on file Physically abused: Not on file Forced sexual activity: Not on file Other Topics Concern ??? Do You live alone? Not Asked ??? Tobacco in Home Not Asked Social History Narrative ??? Not on file Family history: ROS: As stated above, otherwise remainder of 10-point system review is negative Physical Exam: Temp: [36.4 ??C (97.5 ??F)] Heart Rate: [95-114] Resp: [10-21] BP: (104-130)/(77-113) SpO2: [97 %-100 %] Heart Rate from SpO2: [98 bpm-110 bpm] Gen: NAD HEENT: EOMI. Sclera anicteric. CV: RRR on monitor Pulm: breathing comfortably on RA Abd: soft, non-tender, non-distended, no percussion tenderness, incision well healed, J-tube site clean and non-erythematous, positioned appropriately. Ext: NoJcyanosis, clubbing or edema. DP and PT pulses 2+ b/l Skin: warm, dry, no rashes Neuro: A&Ox3, moving all extremities Labs: Recent Results (from the past 24 hour(s)) Hemogram Result Value Ref Range WBC 7.5 4.0 - 9.5 x10(3)/mcL RBC 5.25 (H) 4.00 - 5.21 x10(6)/mcL Hemoglobin 14.5 11.7 - 15.5 gm/dL Hematocrit 45.3 35.7 - 45.8 % MCV 86.3 82.6 - 94.4 fL MCH 27.6 27.1 - 32.0 pg MCHC 32.0 31.7 - 35.0 gm/dL Platelets 307 145 - 357 x10(3)/mcL RDWSD 52.6 (H) 37.0 - 46.0 fL RDWCV 16.5 (H) 11.5 - 14.1 % MPV 10.0 7.6 - 12.9 fL nRBC % Auto 0.0 % nRBC Abs Auto 0.000 0.000 - 0.000 x10(3)/mcL Differential, Automated Result Value Ref Range Neutrophils % 83.0 % Neutr Abs (ANC) 6.24 (H) 1.70 - 6.10 x10(3)/mcL Lymphocytes % 11.9 % Lymphocytes Abs 0.9 0.9 - 3.2 x10(3)/mcL Monocytes % 4.5 % Monocyte Abs 0.3 0.3 - 0.9 x10(3)/mcL Eosinophils % 0.0 % Eosinophils Abs 0.0 0.0 - 0.4 x10(3)/mcL Basophils % 0.3 % Basophils Abs 0.0 0.0 - 0.1 x10(3)/mcL Immature Gran % 0.30 % Teresa Gran Abs 0.02 0.00 - 0.04 x10(3)/mcL Blue Tube HOLD Result Value Ref Range Blue Hold Sample in lab. Gold Tube HOLD Result Value Ref Range Gold Hold Sample in lab. L-Lactate2 Whole Blood Result Value Ref Range Lactate WB 0.9 0.5 - 2.2 mmol/L Basic Metabolic Panel (non-fasting) Result Value Ref Range Glucose Lvl 128 65 - 199 mg/dL BUN 17 8 - 18 mg/dL Creatinine 0.59 (L) 0.70 - 1.20 mg/dL Sodium 140 135 - 145 mmol/L Potassium 3.8 3.5 - 5.0 mmol/L Chloride 101 98 - 107 mmol/L CO2 27 22 - 31 mmol/L Anion Gap 12 5 - 15 mmol/L Calcium 9.9 8.5 - 10.5 mg/dL eGFR 102 >=60 mL/min/1.73 m?? eGFR 118 >=60 mL/min/1.73 m?? Hepatic Function Panel Result Value Ref Range Total Protein 7.4 6.1 - 8.0 gm/dL Albumin 4.6 3.2 - 5.2 gm/dL AST 16 0 - 30 unit/L ALT 26 0 - 30 unit/L Alk Phos 79 35 - 105 unit/L Total Bilirubin 0.4 0.2 - 1.3 mg/dL Bili, Direct 0.1 0.0 - 0.3 mg/dL Lipase Result Value Ref Range Lipase 22 0 - 60 unit/L Imaging: Ct Abdomen & Pelvis W Contrast Result Date: 03/24/2020 EXAMINATION: CT ABDOMEN AND PELVIS W CONTRAST CLINICAL HISTORY: Abdominal pain, fever, post-op - Include more detail below Abd pain s/p wipple, vomiting TECHNIQUE: Helical CT of the abdomen and pelvis was performed following the intravenous administration of 66 mL Omnipaque 350. COMPARISON: CT abdomenand pelvis 02/02/2020 FINDINGS: Lower chest: interval decrease in size of pleural- based nodule, now measuring 4 mm, previously measured 7 mm (920 series 3 image 6). Liver: Normal size and attenuation, and without lesions. Bile ducts: Nondilated. Gallbladder: Absent. Pancreas: Status post Whipple. Normal attenuation without ductal dilatation of the pancreatic remnant. Spleen: Normal. Adrenals: Normal. Kidneys: Normal. Urinary Bladder: Normal. Vasculature: No abdominal aortic aneurysm. Lymph Nodes: No enlarged lymph nodes. Bowel: Post Whipple changes with trmu-ya-ysje loop gastrojejunostomy. A jejunostomy tube in place downstream from the anastomosis. The stomach is distended with fluid material. Thesmall bowel distal to the gastrojejunostomy is decompressed. There is mural thickening and mild mucosal hyperemia involving the distal two thirds of the afferent duodenal loop. No small bowel wall thickening or dilation of the efferent limb. No wall thickening or dilation of the large bowel. Peritoneum and mesentery: Small amount of free fluid within the pelvis. No free air. Abdominal wall: Normal. Reproductive organs: Normal. Osseous structures: Lumbar scoliosis convex to the left. No suspicious lesions. 1. Appearance concerning for obstruction at the level of gastrojejunostomy, as outlined above. 2. Mural thickening and mucosal hyperemia of the afferent loop of duodenum, concerning for infection, inflammation or ischemia. 3. Small amount of free fluid within the pelvis, possibly related to above. I, Justo Almaguer, discussed the result(s) with Dr. Palmer, and Emergency Physician on 03/24/2020 2:50 PM and verified that (s)he understood these results. I have personally reviewed the image(s) and the resident's interpretation and agree with the findings, Benjamin Ochoa MD at 03/24/2020 3:07 PM Thank you for letting us participate in the care of this patient. For questions regarding this report, radha linda contact the number below. Electronically signed by: Benjamin Ochoa MD, [facility] ([phone]), at 03/24/2020 3:07 PM Assessment and Plan: Mary Kay Gonzalez is a 59 y.o. 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 The CT scan reveals a massively dilated stomach but no fluid collections or dilated bowel distally. She is tachycardic in theED which has improved after a 1L bolus. Her other vital signs are not concerning and she is on RA. Her labs are unremarkable. There is no leukocytosis, electrolyte derangements or CAROLYN. Working diagnosis is gastroparesis with gastric outlet pseudo-obstruction. Plan: Admit to floor NGT to LCWS, flush q4h Re-start reglan NPO (give meds) Continue creon with meals mIVF with LR CBC, BMP, Mg, Phos in the AM Hold TF overnight PPI BID, heparin for ppx Harley Hoyos MD 03/24/2020 Surgery Attending Addendum I have seen and examined Mary Kay this afternoon. I have reviewed the laboratory data.?My exam is unchanged from Dr. Dr. Casey' note above. The assessment and plan were formulated in discussion with me and I agree with them as documented. Harley called me this morning after a.m. rounds and I had spoken to Dr. Brumfield yesterday afternoon/evening when she presented to the ED with a gastric outlet obstruction type picture-impressive CT as noted above showing gastric distention. An NG tube was placed with copious bilious output. When I saw her this morning she was on tube feeding at about 50 cc an hour via the J-tube and the NGwas nicely in place some pain nicely with bilious output. Her abdomen was soft, nondistended and essentially nontender. Midline laparotomy incision/scar healing nicely. J-tube in place. We discussed a plan, as above, to continue with NG decompression and consider a NG clamp trial tomorrow. 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 At this point we need to consider NG decompression as above, IV promotility agent such as Reglan and nutritional support via the J-tube which is downstream from all the Whipple anatomy. I told her that at best case she would be here probably until Friday assuming the NG could be removed tomorrow after the clamp trial, she could be trialed on the clears on Friday with resumption of some oral intake and full nutritional support via the J-tube with possible discharge Friday as long as all goes well. Nickolas also have some swelling or marginal ulcer formation at the GJ anastomosis which is contributing to these gastric outlet obstructive symptoms in which case if the clamp trial is not able to be successful and we would consider GI consult with upper endoscopy for Friday. Reid Galdamez MD 03/25/2020 3:46 PM This note was created using [employer]) voice recognition software. documented in this encounter ED Notes Felix Woods RN - 03/24/2020 7:42 PM EST Report given to Zia on . Pt ready for transpo. Felix Woods RN - 03/24/2020 4:49 PM EST Gastro to pt bedside. Dandre Teixeira MD - 03/24/2020 12:50 PM EST Brief Attending Note I cared for the patient with the resident physician. Please see Dr. Palmer's note, associated with the encounter, for more details. HPI: Mary Kay Gonzalez is a 59 y.o. who presents to the ED history of locally advanced GIST, status post Whipple procedure presenting with 10 days of worsening nausea vomitus and abdominal pain. She has been decreasing her tube feeds to see if this will help and she has been tolerating them. ROS: Pertinent positives and negatives are included in the history of present illness, otherwise 10 systems are reviewed and negative Allergies: No Known Allergies Past Medical, Past Surgical, Family/Social History: reviewed in chart. Patient Vitals for the past 8 hrs: BP Temp Temp src Pulse Resp SpO2 Height Weight 03/24/20 1230 119/87 -- -- (!) 102 13 98 % -- -- 03/24/20 1215 (!) 124/113 -- -- (!) 111 21 98 % -- -- 03/24/20 1200 119/81 -- -- (!) 103 17 97 % -- -- 03/24/20 1145 104/85 -- -- (!) 101 14 97 % -- -- 03/24/20 1130 (!) 130/92 -- -- (!) 104 10 99 % -- -- 03/24/20 1037 111/77 36.4 ??C (97.5 ??F) Oral (!) 114 16 100 % 162.6 cm (5' 4) 45.8 kg (101 lb) Gen: well appearing, NAD HENT: atraumatic, OP clear, mmm Pulm: CTA clara, no respiratory distress Card: RRR Abd: soft,mild diffuse tenderness Skin: warm and dry Neuro: speech fluent, no obvious deficit MS: No obvious deformity Psych: Normal mood Assessment: 59 y.o. female presenting with SBO s/p surgery on CT scan. She will be admitted to the surgical service. Dandre Teixeira MD 03/24/20 [id number] Robert Palmer MD - 03/24/2020 12:02 PM EST ED Resident Note Mary Kay Gonzalez is an 59 y.o. female who presents to the ED with: Chief Complaint Patient presents with ??? Abdominal Pain I saw this patient on 03/24/2020. History is from the patient at the bedside. HPI Mary Kay Gonzalez is a 59 y.o. female with history of pancreatic cancer status post Whipple procedure 4weeks ago who presents to the Emergency Department abdominal pain, inability to tolerate p.o. and forceful vomiting. All of her symptoms started approximately 1 week ago but acutely worsened over the past 3 days. She feels distended, vomits whenever she eats anything and has had general epigastric abdominal pain and malaise. She denies any fevers chills dysuria and is still having daily loose bowel movements. Review of Systems: Review of Systems Constitutional: Negative for activity change, appetite change, chills, diaphoresis, fever and unexpected weight change. HENT: Negative for rhinorrhea, sore throat and voice change. Respiratory: Negative for apnea, cough and shortness of breath. Cardiovascular: Negative for chest pain. Gastrointestinal: Positive for abdominal pain and vomiting. Negative for constipation, diarrhea and nausea. Genitourinary: Negative for dysuria. Musculoskeletal: Negative for back pain. Skin: Negative for rash. Neurological: Negative for dizziness, numbness and headaches. Psychiatric/Behavioral: Negative for confusion and suicidal ideas. Physical Exam: Patient Vitals for the past 24 hrs: BP Temp Temp src Pulse Resp SpO2 Height Weight 03/24/20 1037 111/77 36.4 ??C (97.5 ??F) Oral (!) 114 16 100 % 162.6 cm (5' 4) 45.8 kg (101 lb) GEN: No acute distress. HEENT: Oropharynx clear, pink, and moist. PULM: No resp distress. CV: Normal rate. ABD: Soft, mildly distended, tender in the epigastrium. MSK: No gross deformities. NEURO: AAOx3. PERRL. No gross CN deficits. Light touch intact face & body. Moves extremities equally. PSYCH: Normal mood and thought pattern. SKIN: No rashes. ED Course: - Patient seen under the supervision of the attending physician. - Medications, allergies, and past medical history reviewed. No results found for this or any previous visit (from the past 24 hour(s)). Assessment and Plan: MDM 59 y.o. female with gastric outlet obstruction. 59-year-old female is 4 weeks as post Whipple presenting with forceful vomiting inability to tolerate p.o., she is tender on exam but is otherwise well- appearing. She has normal vital signs. CT abdomenpelvis demonstrates a very distended stomach consistent with a gastric outlet obstruction/duodenal ob struction. The surgical oncology team is consulted and recommending NG tube placement and admission to their service. Her vital signs continued to be stable while in the emergency department and her symptoms are controlled with Zofran. Robert Palmer MD Resident 03/26/20 0821 Associated attestation - Dandre Teixeira MD - 03/26/2020 4:16 PM EST ED ATTENDING ATTESTATION The patient was seen in conjunction with the resident physician. I have independently performed the bah portions of the history and physical exam. I have personally reviewed nursing notes, vital signs,and diagnostic studies including labs, imaging studies and EKGs. I have discussed the details of the case with the resident and agree with the assessment and plan as described in the resident's note, unless stated otherwise in my separate note. Did this case involve critical care? No documented in this encounter Miscellaneous Notes Plan of Care - Jordan Lea RN - 03/29/2020 1:47 PM EST Patient discharged to home with VNA. Discharge summary faxed to appropriate VNA service. Reviewed after visit summary with patient. Patient aware of when and why to notify MD. Patient had no questions regarding discharge teaching. Patient aware of follow up appointments. Prescriptions received. IVs DC'd. Pt belongings gathered. Pt left in personal clothing. Patient left to family vehicle at approximately 1345. Care Management - Kamilah Jordan RN - 03/29/2020 12:30 PM EST [facility] Follow up Note: Referral to :[facility] Confirmed with Evangelina from [facility] that patient will be seen day after discharge 03/30/20 at a time [facility] teaching will occur/previous patient already on service Delivery of IV supplies will occur per delivery schedule after supplies ssufficient until 04/04 To be delivered to patients home address. [facility] [phone] Initial Assessments - Marielos Huynh RN - 03/29/2020 11:50 AM EST OFFICE OF CARE MANAGEMENT Lavatory Attendant Discharge Note Marielos Huynh RN reviewed record and discussed patient with Care Team. Patient plan of care discussed in multidisciplinary rounds and assessment for continuing care and discharge needs. Diagnosis: Gastroparesis LOS Hospital: 5 days INSURANCE: [facility] [employer] [facility] Plan: [employer] MCMP / Product Type: *No Product type* / SECONDARY INSURANCE: N/A DECISION MAKER: Attempt Cardiopulmonary Resuscitation - Inpatient <no information> Patient is medically ready for discharge today. [facility] and [facility] routed and orders pended.Kamilah from [facility] updated that patient will leave today. No delivery or same day visit needed. Current Referral in place: [facility] and [facility] Transportation: Friend will drive patient home via private vehicle when medically ready. Support: Friend Lavatory Attendant to follow with team and family to assist with discharge needs when patient ready for discharge. Marielos Huynh RN Case Management pgr [phone] Plan of Care - Valeria Tsang RN - 03/29/2020 4:47 AM EST OUTCOME EVALUATION NOTE: OUTCOME SUMMARY: Mary Kay had a decent night. VSS (BPs soft), team aware, on RA, afebrile. A&Ox4. Tube feed cyclic,pt tolerating well. Voiding adequately in bathroom, one BM this shift. Pt ambulating in hallway independently prior to going to sleep. Will continue to monitor. PLAN MOVING FORWARD: Cyclic tube feeds as ordered Discharge planning (for 03/29) INDIVIDUALIZED FALL PREVENTION INTERVENTIONS: Patient-specific fall risk factors per assessment: [current deficits]: Tube feed, low BPs, unfamiliar environment Assistance [level of assistance required for transfers and ambulation]: independent Supervision [direct monitoring required during toileting and ADLs]: Eyes on Surveillance [continuous indirect monitoring]: Masimo, safety checks, call encinas within reach Patient-specific fall prevention interventions for sensory deficits provided, if applicable: [X] Yesadjust lighting, non skid-socks CPG GOAL OUTCOME EVALUATION: Ongoing Plan of Care - Leatha Murphy RN - 03/28/2020 3:01 AM EST OUTCOME EVALUATION NOTE: OUTCOME SUMMARY: Mary Kay had a quite night. AxO. RA VSS. Ambulates independently. Pt denies any pain/discomfort. Voidsadequately. Tolerating tube feed well. On clear liquid diet. PLAN MOVING FORWARD: Plan for advance diet and D/C on fri. INDIVIDUALIZED FALL PREVENTION INTERVENTIONS: Patient-specific fall risk factors per assessment: [current deficits]: Weakness Assistance [level of assistance required for transfers and ambulation]: Independent Supervision [direct monitoring required during toileting and ADLs]: Hands on Surveillance [continuous indirect monitoring]: Safety rounds maintained. Clutter free environment Patient-specific fall prevention interventions for sensory deficits provided, if applicable: [X] N/A CPG GOAL OUTCOME EVALUATION: Ongoing Plan of Care - Jordan Lea RN - 03/27/2020 3:08 PM EST Problem: Patient Care Overview Goal: Plan of Care Review Outcome: Ongoing (Interventions Implemented as Appropriate) 03/27/20 0326 03/27/20 1021 Coping/Psychosocial Plan Of Care Reviewed With -- patient Plan of Care Review Progress progress toward functional goals as expected -- OUTCOME EVALUATION NOTE: OUTCOME SUMMARY: Pt A&Ox4. Vitals as documented. Tolerating tube feeds without nausea/vomiting, no abd distention. Diet increased to clear liquids and toast this afternoon. Patient ambulating in hallway without difficulty. Pain minimal. Room air. Bowel sounds active. Pt denies SOB or CP. Potential discharge date of 03/28/20. Will continue to monitor. Patient Vitals for the past 8 hrs: BP Temp Temp src Resp SpO2 03/27/20 1305 94/64 36.8 ??C (98.2 ??F) Oral 16 96 % PLAN MOVING FORWARD: Ambulate Tube feedings at goal Discharge planning INDIVIDUALIZED FALL PREVENTION INTERVENTIONS: Patient-specific fall risk factors per assessment: [current deficits]: Unfamiliar environment, tethering devices Assistance [level of assistance required for transfers and ambulation]: Up ad jaylin Supervision [direct monitoring required during toileting and ADLs]: Eyes on Surveillance [continuous indirect monitoring]: Purposeful rounding, call encinas within reach Patient-specific fall prevention interventions for sensory deficits provided, if applicable: Yes, lighting adjusted, nonskid socks worn while OOB CPG GOAL OUTCOME EVALUATION: Ongoing Plan of Care - Zia Mckoy RN - 03/27/2020 3:29 AM EST Problem: Patient Care Overview Goal: Plan of Care Review Outcome: Ongoing (Interventions Implemented as Appropriate) 03/27/20 0326 Coping/Psychosocial Plan Of Care Reviewed With patient Plan of Care Review Progress progress toward functional goals as expected OUTCOME EVALUATION NOTE: OUTCOME SUMMARY: Patient had a good and uneventful night. Patient reporting no pain and sleeping comfortably between care for most of night. Meds administered as ordered, tube feed via J tube maintained at 52 mL/hr with no adverse reactions evident, IV fluid continues via peripheral IV RUE, no issues with infusion of IV access. Tolerating clear liquid diet with no issues Patient independently ambulatory to bathroom with minor assistance with IV pole, adequate urine output and no complaints. Plan of care proceeding as expected, anticipate GI consult Tuesday 03/27 with possibility of further surgical intervention thisweek. Comfort and safety maintained, will continue to monitor. Plan of care reviewed with patient who is accepting of care, A&Ox4 and with pleasant affect throughout evening. PLAN MOVING FORWARD: Plan moving forward anticipate possible surgical intervention pending GI consult 03/27. Monitor VS/I&O/tolerance to tube feed/diet, promote ambulation and independence. INDIVIDUALIZED FALL PREVENTION INTERVENTIONS: Patient-specific fall risk factors per assessment: [current deficits]: Tethering devices Assistance [level of assistance required for transfers and ambulation]: independent Supervision [direct monitoring required during toileting and ADLs]: independent Surveillance [continuous indirect monitoring]: Call encinas within reach, safety rounding, room near RNstation Patient-specific fall prevention interventions for sensory deficits provided, if applicable: CPG GOAL OUTCOME EVALUATION: Initial Assessments - Cheyenne Alfaro RN - 03/26/2020 5:04 PM ESTSummary: [facility] RN & [facility] home tube feed restart referrals Office of Care Management Initial Assessment Cheyenne Alfaro RN reviewed record. Source of Information: Patient. Introduced self/reviewed role; services accepted. Reason for Hospitalization: Reason for Admission as Stated by Patient: Problems after surgery Last COVID test date and time: 59 y.o. 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 CT scan showed a massively dilated stomach most likely due to gastroparesis after discontinuation of her Reglan. (from 03/26/20 General Surgery Progress Notes) Past Medical History: Diagnosis Date ??? Arthritis ??? Cancer Hospitalizations Within the Past 30 Days: 02/22-03/01 at [facility] malignant GIST: discharged to [facility] with [facility] RN and [facility] tube feed services Anticipated Length Of Stay (If known): Expected to require inpatient care through at least Wednesday 03/28 Current Decision-Making Capacity: Capable of making own decisions Advance Care Planning: Patient reports she is working on her Advance Directive at home Current Coping/Education/Information Needs: None Current Functional Ability: Stand by assist Functional Status Prior to Admission: Independent in IADLs including driving Home Environment: Lives alone. Has 2 teenage sons who stay with her sometimes. No issues navigating home environment or community distances. All basic needs met. Social & Family Supports/Community Resources: Family, [facility], [facility] History: None Substance Use/Abuse: None Other Pertinent/Service Specific Information: Has been performing home tube feeds at home independently and successfully. Reports she has a week's worth of tube feed at home. Health/Prescription Coverage: Primary Insurance: [employer] [facility] Secondary Insurance: None Prescription Coverage: Yes Preferred Pharmacy: [facility] Other: No Primary Care Provider: Irving Wheeler MD [phone] Patient/Caregiver Goals of Treatment: Resolve abdominal pain Potential Needs for Transition of Care: Rehab/SNF: No Home Health & DME: The patient has been provided a list of Home Health Agencies and DME vendorswhich serves her preferred geographic area. Described our affiliations and educated about right to choose where referrals are placed. Patient requests referral to [facility], and [phone] and [facility]. [place], [place]. or Expected date of discharge: Possibly as early as Wednesday 03/28 Referral routed to the Assistant Professor Nurse Education for matching with agency/vendor and to provide any required information. Dialysis: No Community Resources: No Transportation: Friend Other: PCP follow up Anticipated Barriers to Discharge/Special Considerations: None Assessment: Patient has maintained her ability to perform IADLs independently and will be safe to discharge home to resume living independently and performing home tube feed administration with home RNsupport when medically ready Plan: Discharge home via ride from friend with [facility] RN and [place] tube feed services when medically ready A member of the Care Management team will continue to monitor progress, follow for continuity of care and assist with transition of care planning. Cheyenne Alfaro RN Pager: [phone] Plan of Care - Jordan Lea RN - 03/26/2020 3:11 PM EST Problem: Patient Care Overview Goal: Plan of Care Review Outcome: Ongoing (Interventions Implemented as Appropriate) 03/25/20 0157 03/26/20 1000 Coping/Psychosocial Plan Of Care Reviewed With -- patient Plan of Care Review Progress progress toward functional goals as expected -- OUTCOME EVALUATION NOTE: OUTCOME SUMMARY: Pt A&Ox4. Vitals as documented. Ambulates frequently in hallway independently. NG tube removed today by this RN per order. Tube feedings continue at 52mL/hr which is goal. No nausea or vomiting noted. Patient able to tolerate clear liquid diet. Room air. Pt denies SOB or CP. Pt has had a good day,rested between care. Will continue to monitor. Patient Vitals for the past 8 hrs: BP Temp Temp src Resp SpO2 03/26/20 1126 114/76 36.8 ??C (98.2 ??F) Oral 15 96 % 03/26/20 0810 102/70 36.9 ??C (98.4 ??F) Oral 15 95 % PLAN MOVING FORWARD: Ambulate Clear liquid diet Tube feedings INDIVIDUALIZED FALL PREVENTION INTERVENTIONS: Patient-specific fall risk factors per assessment: [current deficits]: Unfamiliar environment, tethering devices Assistance [level of assistance required for transfers and ambulation]: Independent Supervision [direct monitoring required during toileting and ADLs]: Eyes on Surveillance [continuous indirect monitoring]: Purposeful rounding, call encinas within reach Patient-specific fall prevention interventions for sensory deficits provided, if applicable: Yes, lighting adjusted, nonskid socks worn while OOB CPG GOAL OUTCOME EVALUATION: Ongoing Plan of Care - Valeria Pritchard RN - 03/26/2020 3:14 AM EST Problem: Patient Care Overview Goal: Plan of Care Review Outcome: Ongoing (Interventions Implemented as Appropriate) 03/25/2015603/25/202038 Coping/Psychosocial Plan Of Care Reviewed With -- patient Plan of Care Review Progress progress toward functional goals as expected -- OUTCOME EVALUATION NOTE: OUTCOME SUMMARY: Mary Kay had a good night. She slept well in between care. VSS on RA. Afebrile. A&Ox4. No report of pain. Voiding adequate amounts of urine. No BM this shift. NGT to LCS. LR running at 75/hr. Peptamen AF continuous at 52/hr via J-tube. Tolerating well. She denies chest pain, shortness of breath, or nausea. Will continue to monitor. PLAN MOVING FORWARD: Discharge planning INDIVIDUALIZED FALL PREVENTION INTERVENTIONS: Patient-specific fall risk factors per assessment: [current deficits]: Generalized weakness Assistance [level of assistance required for transfers and ambulation]: Independent Supervision [direct monitoring required during toileting and ADLs]: Eyes on Surveillance [continuous indirect monitoring]: Masimo, hourly rounding Patient-specific fall prevention interventions for sensory deficits provided, if applicable: [X] N/A CPG GOAL OUTCOME EVALUATION: Goal: Individualization & Mutuality Outcome: Ongoing (Interventions Implemented as Appropriate) 03/25/20 0543 Mutuality/Individual Preferences What Anxieties, Fears or Concerns Do You Have About Your Health or Care? Not making progress after initial hospitalization What Questions Do You Have About Your Health or Care? none at this time What Information Would Help Us Give You More Personalized Care? nothing at this time Goal: Fall Prevention-Safe Patient Handling Outcome: Ongoing (Interventions Implemented as Appropriate) 03/25/20 0827 03/25/20 1600 03/25/202038 Riggins Fall Risk History of Falling -- -- 0 Secondary Diagnosis -- -- 15 Ambulatory Aids -- -- 0 Intravenous Therapy/Heparin/Saline Lock -- -- 20 Gait/Transferring -- -- 0 Mental Status -- -- 0 Score -- -- 35 OTHER Riggins Fall Risk -- -- Med Restraint Interventions Safety Promotion/Fall Prevention -- -- activity supervised;safety round/check completed Positioning Body Position independent -- -- Activity Activity Type -- -- ambulated in quispe Activity Assistance Provided -- -- independent Assistive Device Utilized -- none -- Goal: Infection Control Outcome: Ongoing (Interventions Implemented as Appropriate) 03/25/202038 Safety Interventions Isolation Precautions standard precautions maintained Infection Prevention single patient room provided Coping Strategies Supportive Measures active listening utilized Goal: Discharge Needs Assessment Outcome: Ongoing (Interventions Implemented as Appropriate) 03/26/20305 Discharge Needs Assessment Discharge Disposition still a patient Goal: Interdisciplinary Rounds/Family Conf Outcome: Ongoing (Interventions Implemented as Appropriate) 03/26/20305 Interdisciplinary Rounds/Family Conf Participants patient;nursing Plan of Care - Gaby Pryor RN - 03/25/2020 2:28 PM EST OUTCOME EVALUATION NOTE: OUTCOME SUMMARY: Mary Kay had an OK day. Denies pain or nausea. NGT putting out moderate amt greenish/brown drainage. TF transitioned to continuous, pt tolerating well. BPs somewhat soft, unchanged from overnight. Pt voiding adequately, no BM today. Ambulating independently in halls PLAN MOVING FORWARD: Continue NGT decompression, possibly clamp tomorrow INDIVIDUALIZED FALL PREVENTION INTERVENTIONS: Patient-specific fall risk factors per assessment: [current deficits]: IV lines, tube feeding, NGT Assistance [level of assistance required for transfers and ambulation]: Independent Supervision [direct monitoring required during toileting and ADLs]: Independent Surveillance [continuous indirect monitoring]: Purposeful rounding, call encinas within reach, room near unit station Patient-specific fall prevention interventions for sensory deficits provided, if applicable: Nonskidfootwear, lights adjusted, room free from clutter CPG GOAL OUTCOME EVALUATION: Plan of Care - Zia Mckoy RN - 03/25/2020 1:58 AM EST Problem: Patient Care Overview Goal: Plan of Care Review Outcome: Ongoing (Interventions Implemented as Appropriate) 03/25/20 0157 Coping/Psychosocial Plan Of Care Reviewed With patient Plan of Care Review Progress progress toward functional goals as expected OUTCOME EVALUATION NOTE: OUTCOME SUMMARY: Patient received alert and oriented at approximately 2044. VSS, NGT clamped then returned to low continuous suction with small-moderate green-brown output noted. Patient introduced and oriented to roomand staff, use of call encinas explained and placed within reach. Report received from ED RN Felix. Will continue to monitor for safety and comfort. Tube feeding via J-tube initiated tonight, 50 mL/hr cyclic administration of 5oo mL Peptamen AF, J-Tube flushing and patent with no complaints from patient, feed proceeding as expected with no issues.Patient receiving LR at 75 mL/hr via peripheral IV, no adverse reactions noted, IV also utilized forscheduled Reglan. Patient reporting no pain and with stable vital signs. Former midline incision appearing healed, well approximated with no issues. Diet upgraded to sips and chips, will allow PO intake as tolerated under these parameters. Pt voids spontaneously with independent ambulation to bathroom. Patient resting quietly throughout most of shift. Plan of care reviewed with patient who is accepting of care, A&Ox4 and with pleasant affect during shift. PLAN MOVING FORWARD: Plan moving forward monitor I&O/VS/dietary and tube feed tolerance, promote ambulation and independence, advance diet as ordered/tolerated. INDIVIDUALIZED FALL PREVENTION INTERVENTIONS: Patient-specific fall risk factors per assessment: [current deficits]: Tethering devices Assistance [level of assistance required for transfers and ambulation]: independent Supervision [direct monitoring required during toileting and ADLs]: independent Surveillance [continuous indirect monitoring]: Call encinas within reach, safety rounding, room near RNstation Patient-specific fall prevention interventions for sensory deficits provided, if applicable: CPG GOAL OUTCOME EVALUATION: \ ED Triage - Gris Moran RN - 03/24/2020 10:39 AM EST Patient sent from PCP office for bowel obstruction. Had surgery a few weeks ago. No imaging done. Denies pain. +Nausea and vomiting x1. Last BM this morning. Unable to tolerate food at this time without nausea. documented in this encounter Plan of Treatment Upcoming Encounters Date Type Specialty Care Team Description 02/15/2022 Office Visit Hematology and Oncology Morris Dozier MD [facility] [place] [phone] (Wo rk) documented as of this encounter Goals Goal Patient Goal Associated Recent Patient-Stated? Author Type Problems Progress DH Home Medication Patient No Tamera ky, Compliance and Facing Brandt Morin Understanding Action Plan [facility] Note: Formatting of this note might be d ifferent from the original. Remain 95% adherent to Imatinib therapy without significant neutropenia as assessed by CBC labs in clinic every 1 to 3 months documented as of this encounter Procedures Procedure Name Priority Date/Time Associated Comments Diagnosis HC VENIPUNCTURE Routine 03/29/2020 4:48 AM Result s for this EST procedure are i n the results section. HC VENIPUNCTURE Routine 03/28/2020 4:38 AM Result s for this EST procedure are i n the results section. HC VENIPUNCTURE Routine 03/27/2020 6:40 AM Result s for this EST procedure are i n the results section. HC VENIPUNCTURE Routine 03/26/2020 4:00 AM Result s for this EST procedure are i n the results section. BMP W/FASTING GLUCOSE Routine 03/25/2020 3:35 AM Results for this EST procedure are i n the results section. HEMOGRAM Routine 03/25/2020 3:35 AM Results f or this EST procedure are i n the results section. DIFFERENTIAL, Routine 03/25/2020 3:35 AM Results for this AUTOMATED EST procedure are i n the results section. HC CBC,PLT & AUTO Routine 03/25/2020 3:35 AM DIFF EST HC PHOSPHORUS, SERUM Routine 03/25/2020 3:35 AM R esults for this EST procedure are i n the results section. HC MAGNESIUM, SERUM Routine 03/25/2020 3:35 AM Re sults for this EST procedure are i n the results section. RAPID COVID-19 PCR STAT 03/24/2020 5:33 PM Res ults for this ([facility]) EST procedure are in the results section. XR ABDOMEN 1 VIEW STAT 03/24/2020 5:04 PM Resu lts for this EST procedure are i n the results section. CT ABDOMEN AND PELVIS STAT 03/24/2020 2:07 PM Results for this W CONTRAST EST procedure are i n the results section. HC LIPASE STAT 03/24/2020 12:14 Results for this PM EST procedure are i n the results section. HEPATIC FUNCTION STAT 03/24/2020 12:14 Results for this PANEL PM EST procedure are i n the results section. BASIC METABOLIC PANEL STAT 03/24/2020 12:14 Re sults for this (NON-FASTING) PM EST procedure are in the results section. L-LACTATE2 WHOLE Routine 03/24/2020 12:11 Results for this BLOOD PM EST procedure are i n the results section. HEMOGRAM STAT 03/24/2020 12:00 Results for this PM EST procedure are i n the results section. DIFFERENTIAL, STAT 03/24/2020 12:00 Results fo r this AUTOMATED PM EST procedure are i n the results section. GOLD TUBE HOLD STAT 03/24/2020 12:00 Results f or this PM EST procedure are i n the results section. BLUE TUBE HOLD STAT 03/24/2020 12:00 Results f or this PM EST procedure are i n the results section. HC CBC,PLT & AUTO STAT 03/24/2020 12:00 DIFF PM EST documented in this encounter Results Prealbumin (04/18/2020 1:45 PM EST) P athologist Signature Prealbumin 27 20 - 40 [facility] Comment: Prealbumin levels are generally lower in the pediatric population; adult concentrations are usually attained near puberty. Specimen Anatomical Collection Method Collection Time Receive d Time (Source) Location / / Volume Laterality Blood specimen 04/18/2020 1:45 PM 020 1:57 (specimen) EST PM EST Resulting Agency Comment Spec In Lab Britany Villanueva APRN CHEMISTRY ORDERABLES Performing Organization Address City/State/Z[place] [address] (ABNORMAL) Comprehensive metabolic panel (non-fasting) (04/18/2020 1:45 PM EST) athologist Signature Glucose Lvl 74 65 - 199 [facility] mg/dL [facility] Comment: Diabetes: >=200 mg/dL plus symp toms BUN 17 8 - 18 mg/dL [facility] Creatinine 0.41 (L) 0.70 - 1.20 mg/dL [facility] Sodium 141 135 - 145 mmol/L [facility] Potassium 4.2 3.5 - 5.0 mmol/L [facility] Comment: Please note: ??Patients with WBC >100,00 0 may have falsely elevated Potassium levels. ??For accurate Potassium quantif ication in these patients send serum separator tube (gold top) for subsequent determinations. ??Contact the Clinical Chemistry Laboratory if there are any qu estions. Chloride 105 98 - 107 mmol/L [facility] CO2 27 22 - 31 mmol/L [facility] Anion Gap 9 5 - 15 mmol/L [facility] Calcium 9.0 8.5 - 10.5 mg/dL [facility] Total Protein 6.3 6.1 - 8.0 gm/dL [facility] Albumin 4.3 3.2 - 5.2 gm/dL [facility] AST 24 0 - 30 unit/L [facility] ALT 36 (H) 0 - 30 unit/L [facility] Alk Phos 69 35 - 105 unit/L [facility] Total Bilirubin 0.4 0.2 - 1.3 mg/dL [facility] Estimated GFR 115 >=60 mL/min/1.73 m?? [facility] Comment: This patient? [...] Villanueva APRN CHEMISTRY ORDERABLES Performing Organization Address City/State/ZIP Code Phon e Number [place] [phone] (ABNORMAL) BMP w/fasting Glucose (03/29/2020 4:48 AM EST) P athologist Signature Glucose 110 (H) 65 - 99 [facility] Fasting mg/dL [facility] Comment: ?Fasting* Glucose Interpretive C riteria Normal ?65-99 mg/dL Impaired Fasting glucose ?100-125 mg/dL Consistent with Diabetes Mellitus ? >or= 126 mg/dL *Fasting is defined as no caloric intake for at least 8 hours In the absence of unequivocal hypergly cemia a plasma glucose value of >or= 126 mg/dL should be repeated on a subseq u day. Diagnosis and Classification of Diabetes Mellitus, Position Statement from the [place] [employer]. ??Diabete s Care, Volume 33, Supplement 1, May 2009 BUN 17 8 - 18 mg/dL [facility] Creatinine 0.35 (L) 0.70 - 1.20 mg/dL [facility] Sodium 139 135 - 145 mmol/L [facility] Potassium 4.2 3.5 - 5.0 mmol/L [facility] Comment: Please note: ??Patients with WBC >100,00 0 may have falsely elevated Potassium levels. ??For accurate Potassium quantif ication in these patients send serum separator tube (gold top) for subsequent determinations. ??Contact the Clinical Chemistry Laboratory if there are any qu estions. Chloride 105 98 - 107 mmol/L [facility] CO2 26 22 - 31 mmol/L [facility] Anion Gap 8 5 - 15 mmol/L [facility] Calcium 8.8 8.5 - 10.5 mg/dL [facility] Estimated GFR 121 >=60 mL/min/1.73 m?? [facility] Comment: The eGFR was calculated using the CKD-EP I equation. As with all creatinine based estimates of kidney function, eGFR values calculated with the CKD-EPI equation are not accurate in patients wi th acute kidney failure, extremes of body mass or the acutely ill. [email or web address] eGFR 140 >=60 mL/min/1.73 m?? [facility] Comment: The eGFR was calculated using the CKD-EP I equation. As with all creatinine based estimates of kidney function, eGFR values calculated with the CKD-EPI equation are not accurate in patients wi th acute kidney failure, extremes of body mass or the acutely ill. [email or web address] Specimen Anatomical Collection Method Collection Time Receive d Time (Source) Location / / Volume Laterality Blood specimen 03/29/2020 4:48 AM 020 5:06 (specimen) EST AM EST Resulting Agency Comment Spec In Lab Emely Galdamez MD CHEMISTRY ORDERABLES Performing Organization Address City/State/Z[place] [address] (ABNORMAL) BMP w/fasting Glucose (03/28/2020 4:38 AM EST) P athologist Signature Glucose 104 (H) 65 - 99 [facility] Fasting mg/dL [facility] Comment: ?Fasting* Glucose Interpretive C riteria Normal ?65-99 mg/dL Impaired Fasting glucose ?100-125 mg/dL Consistent with Diabetes Mellitus ? >or= 126 mg/dL *Fasting is defined as no caloric intake for at least 8 hours In the absence of unequivocal hypergly cemia a plasma glucose value of >or= 126 mg/dL should be repeated on a subseq uent day. Diagnosis and Classification of Diabetes Mellitus, Position Statement from the [place] [employer]. ??Diabete s Care, Volume 33, Supplement 1, May 2009 BUN 14 8 - 18 mg/dL [facility] Creatinine 0.31 (L) 0.70 - 1.20 mg/dL [facility] Sodium 141 135 - 145 mmol/L [facility] Potassium 4.0 3.5 - 5.0 mmol/L [facility] Comment: Please note: ??Patients with WBC >100,00 0 may have falsely elevated Potassium levels. ??For accurate Potassium quantif ication in these patients send serum separator tube (gold top) for subsequent determinations. ??Contact the Clinical Chemistry Laboratory if there are any qu estions. Chloride 106 98 - 107 mmol/L [facility] CO2 28 22 - 31 mmol/L [facility] Anion Gap 7 5 - 15 mmol/L [facility] Calcium 8.7 8.5 - 10.5 mg/dL [facility] Estimated GFR 126 >=60 mL/min/1.73 m?? [facility] Comment: The eGFR was calculated using the CKD-EP I equation. As with all creatinine based estimates of kidney function, eGFR values calculated with the CKD-EPI equation are not accurate in patients wi th acute kidney failure, extremes of body mass or the acutely ill. [email or web address] eGFR 146 >=60 mL/min/1.73 m?? [facility] Comment: The eGFR was calculated using the CKD-EP I equation. As with all creatinine based estimates of kidney function, eGFR values calculated with the CKD-EPI equation are not accurate in patients wi th acute kidney failure, extremes of body mass or the acutely ill. [email or web address] Specimen Anatomical Collection Method Collection Time Receive d Time (Source) Location / / Volume Laterality Blood specimen 03/28/2020 4:38 AM 020 4:53 (specimen) EST AM EST Resulting Agency Comment Spec In Lab Emely Galdamez MD CHEMISTRY ORDERABLES Performing Organization Address City/State/[place] [address] (ABNORMAL) BMP w/fasting Glucose (03/27/2020 6:40 AM EST) athologist Signature Glucose 108 (H) 65 - 99 [facility] Fasting mg/dL [facility] Comment: ?Fasting* Glucose Interpretive C riteria Normal ?65-99 mg/dL Impaired Fasting glucose ?100-125 mg/dL Consistent with Diabetes Mellitus ? >or= 126 mg/dL *Fasting is defined as no caloric intake for at least 8 hours In the absence of unequivocal hypergly cemia a plasma glucose value of >or= 126 mg/dL should be repeated on a subseq uent day. Diagnosis and Classification of Diabetes Mellitus, Position Statement from the [place] [employer]. ??Diabete s Care, Volume 33, Supplement 1, May 2009 BUN 11 8 - 18 mg/dL [facility] Creatinine 0.40 (L) 0.70 - 1.20 mg/dL [facility] Sodium 140 135 - 145 mmol/L [facility] Potassium 4.2 3.5 - 5.0 mmol/L [facility] Comment: Please note: ??Patients with WBC >100,00 0 may have falsely elevated Potassium levels. ??For accurate Potassium quantif ication in these patients send serum separator tube (gold top) for subsequent determinations. ??Contact the Clinical Chemistry Laboratory if there are any qu estions. Chloride 106 98 - 107 mmol/L [facility] CO2 26 22 - 31 mmol/L [facility] Anion Gap 8 5 - 15 mmol/L [facility] Calcium 8.6 8.5 - 10.5 mg/dL [facility] Estimated GFR 116 >=60 mL/min/1.73 m?? [facility] Comment: The eGFR was calculated using the CKD-EP I equation. As with all creatinine based estimates of kidney function, eGFR values calculated with the CKD-EPI equation are not accurate in patients wi th acute kidney failure, extremes of body mass or the acutely ill. [email or web address] eGFR 134 >=60 mL/min/1.73 m?? [facility] Comment: The eGFR was calculated using the CKD-EP I equation. As with all creatinine based estimates of kidney function, eGFR values calculated with the CKD-EPI equation are not accurate in patients wi th acute kidney failure, extremes of body mass or the acutely ill. [email or web address] Specimen Anatomical Collection Method Collection Time Receive d Time (Source) Location / / Volume Laterality Blood specimen 03/27/2020 6:40 AM 020 6:45 (specimen) EST AM EST Resulting Agency Comment Spec In Lab Emely Galdamez MD CHEMISTRY ORDERABLES Performing Organization Address City/State/[place] [address] (ABNORMAL) Basic Metabolic Panel (non-fasting) (03/26/2020 4:00 AM EST) P athologist Signature Glucose Lvl 110 65 - 199 [facility] mg/dL [facility] Comment: Diabetes: >=200 mg/dL plus symp toms BUN 10 8 - 18 mg/dL [facility] Creatinine 0.36 (L) 0.70 - 1.20 mg/dL [facility] Sodium 142 135 - 145 mmol/L [facility] Potassium 4.0 3.5 - 5.0 mmol/L [facility] Comment: Please note: ??Patients with WBC >100,00 0 may have falsely elevated Potassium levels. ??For accurate Potassium quantif ication in these patients send serum separator tube (gold top) for subsequent determinations. ??Contact the Clinical Chemistry Laboratory if there are any qu estions. Chloride 106 98 - 107 mmol/L [facility] CO2 28 22 - 31 mmol/L [facility] Anion Gap 8 5 - 15 mmol/L [facility] Calcium 8.7 8.5 - 10.5 mg/dL [facility] Estimated GFR 120 >=60 mL/min/1.73 m?? [facility] Comment: The eGFR was calculated using the CKD-EP I equation. As with all creatinine based estimates of kidney function, eGFR values calculated with the CKD-EPI equation are not accurate in patients wi th acute kidney failure, extremes of body mass or the acutely ill. http://[email or web address]/[email or web address] eGFR 139 >=60 mL/min/1.73 m?? [facility] Comment: The eGFR was calculated using the CKD-EP I equation. As with all creatinine based estimates of kidney function, eGFR values calculated with the CKD-EPI equation are not accurate in patients wi th acute kidney failure, extremes of body mass or the acutely ill. [email or web address] Specimen Anatomical Collection Method Collection Time Receive d Time (Source) Location / / Volume Laterality Blood specimen 03/26/2020 4:00 AM 020 4:21 (specimen) EST AM EST Resulting Agency Comment Spec In Lab Emely Galdamez MD CHEMISTRY ORDERABLES Performing Organization Address City/State/ZIP Code Phon e Number [place] [phone] Differential, Automated (03/25/2020 3:35 AM EST) athologist Signature Neutrophils % 70.5 % [facility] Neutr Abs (ANC) 4.67 1.70 - [facility] 6.10 [facility] x10(3)/[facility] Lymphocytes % 18.4 % [facility] Lymphocytes Abs 1.2 0.9 - 3.2 [facility] x10(3)/[facility]ORY Monocytes % 8.4 % [facility] Monocyte Abs 0.6 0.3 - 0.9 [facility] x10(3)/[facility]ORY Eosinophils % 2.1 % [facility] Eosinophils Abs 0.1 0.0 - 0.4 [facility] x10(3)/[facility] Basophils % 0.3 % [facility] Basophils Abs 0.0 0.0 - 0.1 [facility] x10(3)/[facility] Immature Gran % 0.30 % [facility] Comment: Immature granulocytes(IG's)percentage an d absolute count will include metamyelocytes, myelocytes, and promyelo cytes. Blood smears from CBCs yielding IG's will be scanned manually for concor dance. If this scan disagrees with the automated IG or if promyelocytes are not ed, a manual differential will be performed. Teresa Gran Abs 0.02 0.00 - 0.04 x10(3)/[facility] Y [facility] Specimen Anatomical Collection Method Collection Time Receive d Time (Source) Location / / Volume Laterality Blood specimen 03/25/2020 3:35 AM 020 3:54 (specimen) EST AM EST Resulting Agency Comment Spec In Lab Jaycee Brumfield MD HEMATOLOGY ORDERABLES Performing Organization Address City/State/[place] [address] (ABNORMAL) Hemogram (03/25/2020 3:35 AM EST) Analysis Performed At Patho logist Time Signature WBC 6.6 4.0 - 9.5 [facility] x10(3)/[facility] RBC 3.77 (L) 4.00 - [place] 5.21 [facility] x10(6)/[facility] Hemoglobin 10.8 (L) 11.7 - [facility] 15.5 gm/dL [facility] Hematocrit 33.3 (L) 35.7 - [facility] 45.[facility] % [facility] MCV 88.3 82.6 - [facility] 94.4 [facility] MCH 28.6 27.1 - [place] 32.0 pg [facility] MCHC 32.4 31.7 - [place] 35.0 gm/dL [facility] Platelets 239 145 - 357 [facility] x10(3)/[facility] LABORATORY RDWSD 55.2 (H) 37.0 - [facility] [place] 46.0 [facility] LABORATORY RDWCV 16.8 (H) 11.5 - [facility] [place] 14.1 % [facility] MPV 10.1 7.6 - 12.9 [facility] LABORATORY nRBC % Auto 0.0 % [facility] nRBC Abs Auto 0.000 0.000 - [facility] [place] 0.000 [facility] x10(3)/[facility]ORY Specimen Anatomical Collection Method Collection Time Receive d Time (Source) Location / / Volume Laterality Blood specimen 03/25/2020 3:35 AM 020 3:54 (specimen) EST AM EST Resulting Agency Comment Spec In Lab Jaycee Brumfield MD HEMATOLOGY ORDERABLES Performing Organization Address City/State/Z[place] [address] (ABNORMAL) BMP w/fasting Glucose (03/25/2020 3:35 AM EST) P athologist Signature Glucose 114 (H) 65 - 99 [facility] Fasting mg/[facility] Comment: ?Fasting* Glucose Interpretive C riteria Normal ?65-99 mg/dL Impaired Fasting glucose ?100-125 mg/dL Consistent with Diabetes Mellitus ? >or= 126 mg/dL *Fasting is defined as no caloric intake for at least 8 hours In the absence of unequivocal hypergly cemia a plasma glucose value of >or= 126 mg/dL should be repeated on a subseq uent day. Diagnosis and Classification of Diabetes Mellitus, Position Statement from the [place] [employer]. ??Diabete s Care, Volume 33, Supplement 1, May 2009 BUN 15 8 - 18 mg/dL [facility] Creatinine 0.47 (L) 0.70 - 1.20 mg/dL [facility] Sodium 139 135 - 145 mmol/L [facility] Potassium 3.7 3.5 - 5.0 mmol/L [facility] Comment: Please note: ??Patients with WBC >100,00 0 may have falsely elevated Potassium levels. ??For accurate Potassium quantif ication in these patients send serum separator tube (gold top) for subsequent determinations. ??Contact the Clinical Chemistry Laboratory if there are any qu estions. Chloride 104 98 - 107 mmol/L [facility] CO2 27 22 - 31 mmol/L [facility] Anion Gap 8 5 - 15 mmol/L [facility] Calcium 8.7 8.5 - 10.5 mg/dL [facility] Comment: result rechecked-kk Estimated GFR 110 >=60 mL/min/1.73 m?? [facility] Comment: The eGFR was calculated using the CKD-EP I equation. As with all creatinine based estimates of kidney function, eGFR values calculated with the CKD-EPI equation are not accurate in patients wi th acute kidney failure, extremes of body mass or the acutely ill. [email or web address] eGFR 127 >=60 mL/min/1.73 m?? [facility] Comment: The eGFR was calculated using the CKD-EP I equation. As with all creatinine based estimates of kidney function, eGFR values calculated with the CKD-EPI equation are not accurate in patients wi th acute kidney failure, extremes of body mass or the acutely ill. [email or web address] Specimen Anatomical Collection Method Collection Time Receive d Time (Source) Location / / Volume Laterality Blood specimen 03/25/2020 3:35 AM 020 3:55 (specimen) EST AM EST Resulting Agency Comment Spec In Lab Dandre Teixeira MD CHEMISTRY ORDERABLES Performing Organization Address City/[facility]/ZIP Code Phon e Number [address] Phosphorus (03/25/2020 3:35 AM EST) P athologist Signature Phosphorus 3.9 2.5 - 4.5 [facility] mg/dL [facility] Specimen Anatomical Collection Method Collection Time Receive d Time (Source) Location / / Volume Laterality Blood specimen 03/25/2020 3:35 AM 020 3:55 (specimen) EST AM EST Resulting Agency Comment Spec In Lab Dandre Teixeira MD CHEMISTRY ORDERABLES Performing Organization Address City/[facility]/ZIP Code Phon e Number [address] Magnesium (03/25/2020 3:35 AM EST) P athologist Signature Magnesium 0.84 0.69 - 1.07 [facility] mmol/L [facility] Specimen Anatomical Collection Method Collection Time Receive d Time (Source) Location / / Volume Laterality Blood specimen 03/25/2020 3:35 AM 020 3:55 (specimen) EST AM EST Resulting Agency Comment Spec In Lab Dandre Teixeira MD CHEMISTRY ORDERABLES Performing Organization Address City/[facility]/ZIP [place] [address] COVID-19 PCR (03/24/2020 5:33 PM EST) Patholo gist Method Time Signature SARS-CoV-2 Not Detected Not Detected [place] RNA PCR [facility] Comment: This result should be interpreted in com bination with the clinical observations, patient history and epidem iological information. For testing of asymptomatic individuals, assay performa nce characteristics and clinical utility have not been evaluated. Testing for SARS-CoV-2 (Severe acute respiratory syndrome coronavirus 2, form erly known as 2019 novel coronavirus or 2019-nCoV) to aid in the diagnosis of CO VID-19 is performed using the Simplexa COVID-19 Direct Assay by [employer]AK[employer] REQQI as authorized by the FDA issued Emergency Use Authorization (EUA). This assay is intended for In-vitro Diagnostic (IVD) use with nasopharyngeal swabs collected from individuals meeting the CDC criteria for testing. assay is performed based on the instructions for use and additional guid ance provided by the FDA. Testing is performed in the Microbiology Laboratory within the Department of Pathology and Laboratory Medicine at [facility], certified under the Clinical Laboratory Improvement Amendmen ts of 1988 (CLIA), 42 U.S.C. section 263a, to perform high complexity tests. Assay performance has been verified according to clinical laboratory regulat ory requirements. Test results are provided above. A resul t of Not Detected indicates that the viral RNA target is not present but does not preclude SARS-CoV-2 infection. False negative results may occur if a sp ecimen is improperly collected, transported or handled; if amplification inhibitors are present; or if inadequate numbers of viral particles ar e present in the specimen. A result of Detected suggests a current or recent infection and the patient is presumed to be infected. Positive and negative pr edictive values for this test are highly dependent on disease prevalence. A result of Invalid indicates the inability to conclusively determine the presence or absence of SARS-CoV-2 RNA in the sample which can be due to a vari ety of factors. Recollection is recommended in the case of an invalid re sult. CDC COVID-19 criteria for testing on hum an specimens and clinical management guidance information are available at th e CDC Coronavirus Disease 2019 (COVID-19) webpage under Information fo r Healthcare Professionals (https://www.cdc.gov/coronavirus/2019-nc ov/hcp/index.html). SARS-CoV-2 Source [employer] Swab [facility] Specimen (Source) Anatomical Collection Method Collection Time Re ceived Time Location / / Volume Laterality Nasopharyngeal swab 03/24/2020 5:33 03/24 (specimen) PM EST 6:15 PM EST Comment: Symptoms->Surveillance Resulting Agency Comment Spec In Lab Dandre Teixeira MD MICROBIOLOGY - GENERAL ORDER AYDIN Performing Organization Address City/State/[place] [address] XR Abdomen 1 view (Generic) (03/24/2020 5:04 PM EST) Anatomical Region Laterality Modality Abdomen N/A Digital Radiography Specimen (Source) Anatomical Location Collection Method / Collectio n Time Received Time / Laterality Volume Impressions 03/24/2020 5:17 PM EST An enteric tube tip and side-port project over the stomach in satisfactory position. I have personally reviewed the image(s) and the resident's interpretation and agree with the findings, Arabella Berman MD at 03/24/2020 5:17 PM Thank you for letting us participate in the care of this patient. For questions regarding this report, please contact e number below. ? Narrative 03/24/2020 5:17 PM EST EXAMINATION: XR ABDOMEN 1 VIEW (GENERIC) CLINICAL HISTORY: confirm NGT placement TECHNIQUE: AP abdominal radiograph limited for the purpose of assessing enteric tube placement. COMPARISON: CT abdomen pelvis dated 03/24/2020. FINDINGS: An enteric tube is present with tip and side-port projecting over the stomach. No dilated loops of bowel are present in the visualized mid to upper abdomen. The visualized lungs are clear. The left costophrenic angle and lung apices are excluded from the study. Surgical clips project over the central abdomen. ??Contrast is present in the bilateral kidneys. Procedure Note Arabella Berman MD - 03/24/2020 EXAMINATION: XR ABDOMEN 1 VIEW (GENERIC) CLINICAL HISTORY: confirm NGT placement TECHNIQUE: AP abdominal radiograph limited for the purpose of assessing enteric tube placement. COMPARISON: CT abdomen pelvis dated 03/24/2020. FINDINGS: An enteric tube is present with tip and side-port projecting over the stomach. No dilated loops of bowel are present in the visualized mid to upper abdomen. The visualized lungs are clear. The left costophrenic angle and lung apices are excluded from the study. Surgical clips project over the central abdomen. Contrast is present in the bilateral kidneys. IMPRESSION An enteric tube tip and side-port projec t over the stomach in satisfactory position. I have personally reviewed the image(s) and the resident's interpretation and agree with the findings, Arabella Berman MD at 03/24/2020 5:17 PM Thank you for letting us participate in the care of this patient. For questions regarding this report, please contact e number below. Electronically signed by: Arabella Berman MD , [facility] ([phone]), at 03/24/2020 5:17 PM Dandre Teixeira MD IMG DX ORDERABLES CT Abdomen & Pelvis w Contrast (03/24/2020 2:07 PM EST) Anatomical Region Laterality Modality Abdomen, Pelvis Computed Tomography Specimen (Source) Anatomical Location Collection Method / Collectio n Time Received Time / Laterality Volume Impressions 03/24/2020 3:07 PM EST 1. ??Appearance concerning for obstructi on at the level of gastrojejunostomy, as outlined above. 2. ??Mural thickening and mucosal hypere jeniffer of the afferent loop of duodenum, concerning for infection, inflammation o r ischemia. 3. ??Small amount of free fluid within t he pelvis, possibly related to above. I, Justo Almaguer, discussed the result( s) with Dr. Palmer, and Emergency Physician on 03/24/2020 2:50 PM and veri fied that (s)he understood these results. I have personally reviewed the image(s) and the resident's interpretation and agree with the findings, Benjamin bonilla MD at 03/24/2020 3:07 PM Thank you for letting us participate in the care of this patient. For questions regarding this report, please contact e number below. ? Electronically signed by: Benjamin caballero MD, [facility] ([phone]), at 03/24/2020 3:07 PM Narrative 03/24/2020 3:07 PM EST EXAMINATION: CT ABDOMEN AND PELVIS W CONTRAST CLINICAL HISTORY: Abdominal pain, fever, post-op - Include more detail below Abd pain s/p wipple, vomiting TECHNIQUE: Helical CT of the abdomen and pelvis was performed following the intravenous administration of 66 mL Omni paque 350. COMPARISON: CT abdomen and pelvis 020 FINDINGS: Lower chest: interval decrease in size o f pleural-based nodule, now measuring 4 mm, previously measured 7 mm (920 series 3 image 6). Liver: Normal size and attenuation, and without lesions. Bile ducts: Nondilated. Gallbladder: Absent. Pancreas: Status post Whipple. Normal at tenuation without ductal dilatation of the pancreatic remnant. Spleen: Normal. Adrenals: Normal. Kidneys: Normal. Urinary Bladder: Normal. Vasculature: No abdominal aortic aneurys m. Lymph Nodes: No enlarged lymph nodes. Bowel: Post Whipple changes with side-to -side loop gastrojejunostomy. A jejunostomy tube in place downstream fro m the anastomosis. The stomach is distended with fluid material. The small bowel distal to the gastrojejunostomy is decompressed. There is mural thickeni ng and mild mucosal hyperemia involving the distal two thirds of the afferent du odenal loop. No small bowel wall thickening or dilation of the efferent l imb. No wall thickening or dilation of the large bowel. Peritoneum and mesentery: Small amount o f free fluid within the pelvis. No free air. Abdominal wall: Normal. Reproductive organs: Normal. Osseous structures: Lumbar scoliosis con vex to the left. No suspicious lesions. Procedure Note Benjamin Ochoa MD - 03/24/2020For matting of this note might be different from the original. EXAMINATION: CT ABDOMEN AND PELVIS W CON TRAST CLINICAL HISTORY: Abdominal pain, fever, post-op - Include more detail below Abd pain s/p wipple, vomiting TECHNIQUE: Helical CT of the abdomen and pelvis was performed following the intravenous administration of 66 mL Omni paque 350. COMPARISON: CT abdomen and pelvis 020 FINDINGS: Lower chest: interval decrease in size o f pleural-based nodule, now measuring 4 mm, previously measured 7 mm (920 series 3 image 6). Liver: Normal size and attenuation, and without lesions. Bile ducts: Nondilated. Gallbladder: Absent. Pancreas: Status post Whipple. Normal at tenuation without ductal dilatation of the pancreatic remnant. Spleen: Normal. Adrenals: Normal. Kidneys: Normal. Urinary Bladder: Normal. Vasculature: No abdominal aortic aneurys m. Lymph Nodes: No enlarged lymph nodes. Bowel: Post Whipple changes with side-to -side loop gastrojejunostomy. A jejunostomy tube in place downstream fro m the anastomosis. The stomach is distended with fluid material. The small bowel distal to the gastrojejunostomy is decompressed. There is mural thickeni ng and mild mucosal hyperemia involving the distal two thirds of the afferent du odenal loop. No small bowel wall thickening or dilation of the efferent l imb. No wall thickening or dilation of the large bowel. Peritoneum and mesentery: Small amount o f free fluid within the pelvis. No free air. Abdominal wall: Normal. Reproductive organs: Normal. Osseous structures: Lumbar scoliosis con vex to the left. No suspicious lesions. IMPRESSION 1. Appearance concerning for obstruction at the level of gastrojejunostomy, as outlined above. 2. Mural thickening and mucosal hyperemi a of the afferent loop of duodenum, concerning for infection, inflammation o r ischemia. 3. Small amount of free fluid within the pelvis, possibly related to above. I, Justo Almaguer, discussed the result( s) with Dr. Palmer, and Emergency Physician on 03/24/2020 2:50 PM and yanick lechuga that (s)he understood these results. I have personally reviewed the image(s) and the resident's interpretation and agree with the findings, Benjamin bonilla MD at 03/24/2020 3:07 PM Thank you for letting us participate in the care of this patient. For questions regarding this report, please contact e number below. Dandre Teixeira MD IMG CT ORDERABLES Lipase (03/24/2020 12:14 PM EST) athologist Signature Lipase 22 0 - 60 [facility] unit/L [facility] Specimen Anatomical Collection Method Collection Time Receive d Time (Source) Location / / Volume Laterality Blood specimen 03/24/2020 12:14 0 (specimen) PM EST 12:14 PM EST Resulting Agency Comment Spec In Lab Dander Teixeira MD CHEMISTRY ORDERABLES Performing Organization Address City/[facility] [place] [address] Hepatic Function Panel (03/24/2020 12:14 PM EST) P athologist Signature Total Protein 7.4 6.1 - 8.0 [facility] gm/dL [facility] Albumin 4.6 3.2 - 5.2 [facility] gm/dL [facility] AST 16 0 - 30 [facility] unit/L [facility] ALT 26 0 - 30 [place] unit/L [facility] Alk Phos 79 35 - 105 [facility] unit/L [facility] Total 0.4 0.2 - 1.3 [place] Bilirubin mg/dL [facility] Bili, Direct 0.1 0.0 - 0.3 [facility] mg/dL [facility] Specimen Anatomical Collection Method Collection Time Receive d Time (Source) Location / / Volume Laterality Blood specimen 03/24/2020 12:14 0 (specimen) PM EST 12:14 PM EST Resulting Agency Comment Spec In Lab Dandre Teixeira MD CHEMISTRY ORDERABLES Performing Organization Address City/State/ZIP [place] [address] (ABNORMAL) Basic Metabolic Panel (non-fasting) (03/24/2020 12:14 PM EST) P athologist Signature Glucose Lvl 128 65 - 199 [facility] mg/dL [facility] Comment: Diabetes: >=200 mg/dL plus symp toms BUN 17 8 - 18 mg/dL [facility] Creatinine 0.59 (L) 0.70 - 1.20 mg/dL [facility] Sodium 140 135 - 145 mmol/L [facility] Potassium 3.8 3.5 - 5.0 mmol/L [facility] Comment: Please note: ??Patients with WBC >100,00 0 may have falsely elevated Potassium levels. ??For accurate Potassium quantif ication in these patients send serum separator tube (gold top) for subsequent determinations. ??Contact the Clinical Chemistry Laboratory if there are any qu estions. Chloride 101 98 - 107 mmol/L [facility] CO2 27 22 - 31 mmol/L [facility] Anion Gap 12 5 - 15 mmol/L [facility] Calcium 9.9 8.5 - 10.5 mg/dL [facility] Estimated GFR 102 >=60 mL/min/1.73 m?? [facility] Comment: The eGFR was calculated using the CKD-EP I equation. As with all creatinine based estimates of kidney function, eGFR values calculated with the CKD-EPI equation are not accurate in patients wi th acute kidney failure, extremes of body mass or the acutely ill. [email or web address]/[facility] eGFR 118 >=60 mL/min/1.73 m?? [facility] Comment: The eGFR was calculated using the CKD-EP I equation. As with all creatinine based estimates of kidney function, eGFR values calculated with the CKD-EPI equation are not accurate in patients wi th acute kidney failure, extremes of body mass or the acutely ill. [email or web address]/[facility] Specimen Anatomical Collection Method Collection Time Receive d Time (Source) Location / / Volume Laterality Blood specimen 03/24/2020 12:14 0 (specimen) PM EST 12:14 PM EST Resulting Agency Comment Spec In Lab Dandre Teixeira MD CHEMISTRY ORDERABLES Performing Organization Address City/State/ZIP Code Phon e Number [address] L-Lactate2 Whole Blood (03/24/2020 12:11 PM EST) P athologist Signature Lactate WB 0.9 0.5 - 2.2 [facility] mmol/L [facility] Specimen Anatomical Collection Method Collection Time Receive d Time (Source) Location / / Volume Laterality Blood specimen 03/24/2020 12:11 0 (specimen) PM EST 12:11 PM EST Dandre Teixeira MD CHEMISTRY ORDERABLES Performing Organization Address City/[facility]/ZIP Code Phon e Number [address] Gold Tube HOLD (03/24/2020 12:00 PM EST) P athologist Signature Gold Hold Sample in [facility] LABORATORY Specimen Anatomical Collection Method Collection Time Receive d Time (Source) Location / / Volume Laterality Blood specimen Venous Draw / 03/24/2020 12:00 03/24/20 20 (specimen) Unknown PM EST 12:13 PM EST Robert Palmer MD CHEMISTRY ORDERABLES Performing Organization Address City/State/ZIP Code Phon e Number [address] Blue Tube HOLD (03/24/2020 12:00 PM EST) P athologist Signature Blue Hold Sample in [facility] LABORATORY Specimen Anatomical Collection Method Collection Time Receive d Time (Source) Location / / Volume Laterality Blood specimen Venous Draw / 03/24/2020 12:00 03/24/20 20 (specimen) Unknown PM EST 12:13 PM EST Robert Palmer MD HEMATOLOGY ORDERABLES Performing Organization Address City/State/ZIP [place] [address] (ABNORMAL) Differential, Automated (03/24/2020 12:00 PM EST) Patholo gist Method Time Signature Neutrophils % 83.0 % [facility] Neutr Abs (ANC) 6.24 (H) 1.70 - [facility] 6.10 [facility] x10(3)/[facility] LABORATORY Lymphocytes % 11.9 % [facility] Lymphocytes Abs 0.9 0.9 - 3.2 [facility] x10(3)/[facility] LABORATORY Monocytes % 4.5 % [facility] Monocyte Abs 0.3 0.3 - 0.9 [facility] x10(3)/[facility] LABORATORY Eosinophils % 0.0 % [facility] Eosinophils Abs 0.0 0.0 - 0.4 [facility] x10(3)/[facility] LABORATORY Basophils % 0.3 % [facility] Basophils Abs 0.0 0.0 - 0.1 [facility] x10(3)/[facility] LABORATORY Immature Gran % 0.30 % [facility] Comment: Immature granulocytes(IG's)percentage an d absolute count will include metamyelocytes, myelocytes, and promyelo cytes. Blood smears from CBCs yielding IG's will be scanned manually for concor dance. If this scan disagrees with the automated IG or if promyelocytes are not ed, a manual differential will be performed. Teresa Gran Abs 0.02 0.00 - 0.04 x10(3)/mcL MAR Y [facility] LABORATORY Specimen Anatomical Collection Method Collection Time Receive d Time (Source) Location / / Volume Laterality Blood specimen 03/24/2020 12:00 0 (specimen) PM EST 12:12 PM EST Resulting Agency Comment Spec In Lab Robert Palmer MD HEMATOLOGY ORDERABLES Performing Organization Address City/State/ZIP [place] [address] (ABNORMAL) Hemogram (03/24/2020 12:00 PM EST) Analysis Performed At Patho logist Time Signature WBC 7.5 4.0 - 9.5 [facility] x10(3)/[facility] LABORATORY RBC 5.25 (H) 4.00 - [place] 5.21 [facility] x10(6)/[facility] LABORATORY Hemoglobin 14.5 11.7 - [place] 15.5 gm/dL [facility] Hematocrit 45.3 35.7 - [facility] 45.8 % [facility] MCV 86.3 82.6 - [facility] 94.4 [facility] LABORATORY MCH 27.6 27.1 - [facility] 32.0 pg [facility] MCHC 32.0 31.7 - [facility] 35.0 gm/dL [facility] Platelets 307 145 - 357 [facility] x10(3)/[facility] LABORATORY RDWSD 52.6 (H) 37.0 - [facility] 46.0 [facility] LABORATORY RDWCV 16.5 (H) 11.5 - [facility] 14.1 % [facility] LAB[facility]ATORY MPV 10.0 7.6 - 12.9 [facility] LABORATORY nRBC % Auto 0.0 % [facility] LABORATORY nRBC Abs Auto 0.000 0.000 - [facility] 0.000 [facility] x10(3)/[facility] LABORATORY Specimen Anatomical Collection Method Collection Time Receive d Time (Source) Location / / Volume Laterality Blood specimen 03/24/2020 12:00 0 (specimen) PM EST 12:12 PM EST Resulting Agency Comment Spec In Lab Robert Palmer MD HEMATOLOGY ORDERABLES Performing Organization Address City/State/ZIP [place] [address] documented in this encounter Visit Diagnoses Diagnosis Gastroparesis - Primary Non-intractable vomiting with nausea, un specified vomiting type Malignant gastrointestinal stromal tumor (GIST) of small intestine Moderate protein-calorie malnutrition Malnutrition of moderate degree documented in this encounter Administered Medications Inactive Administered Medications - up to 3 most recent administrations Medication Order MAR Action Action Date Dose Rate Site acetaminophen (Tylenol) tablet 650 mg 650 mg, Oral, EVERY 6 HOURS PRN, Starting on 03/28 at 0729, Until Fri03/29/20 at 1549, Pain, Maximum dose of acetaminophen is 4000 mg from all sources in 24 hours. When ordered for pain, acet aminophen should be given even when other ordered pain medications are indicated. , Routine docusate sodium (Colace) (10 mg/mL) oral Given 03/27/2020 8:26 P M EST 100 mg liquid 100 mg 100 mg, Per J Tube, 2 TIMES DAILY, First dose on Fri03/24/20 at 2100, Until Discontinued, Routine Given 03/26/2020 8:05 PM EST 100 mg Given 03/25/2020 8:14 PM EST 100 mg heparin (Porcine) subcutaneous injection Given 020 6:49 AM EST 5,000 Units 5,000 Units 5,000 Units, Subcutaneous, EVERY 8 HOURS SCHEDULED, First dose on Fri03/24/20 at 2200, Until Discontinued, Routine Given 03/28/2020 10:00 PM EST 5,000 Units Given 03/28/2020 3:08 PM EST 5,000 Units iohexoL (Omnipaque) 350 mg/mL solution 0-200 Given 2:03 PM EST 66 mLs mL 0-200 mL, Intravenous, ONCE PRN, 1 dose, Starting on Fri03/24/20 at 1354, Until Fri03/24/20 at 1403, Per Protocol, Warning Vesicant/Irritant Medication , Radiology Contrast, Routine lactated Ringers 1,000 mL IV bolus New Bag 03/24/2020 12:39 PM EST 2000 mL/hr at 2,000 mL/hr, Intravenous, ONCE, 1 dose, On Fri03/24/20 at 1220 lactated ringers infusion New Bag 03/27/2020 8:10 AM EST 50 mL/hr 50 mL/hr 50 mL/hr, Intravenous, CONTINUOUS, Starting on Fri03/24/20 at 2100, Until Fri03/27/20 at 0819, Recovery (Recovery-Hospital Unit) New Bag 03/26/2020 12:20 PM EST 50 mL/hr 50 mL/hr Rate/Dose Change 03/26/2020 7:40 AM EST 50 mL/hr 50 mL/hr nyjhbv-ronbsecx-rtcwvbn DR (Creon 24) 24,000-76,000 -1 20,000 unit per capsule 1 capsule 1 capsule, Oral, WITH SNACKS, Starting o n Tue /17/20 at 0731, Until Fri03/29/20 at 1549, Routine pfkgpy-difonkgg-hbxxupe DR (Creon 24) Given 03/29/2020 12:35 PM EST 1 capsule 24,000-76,000 -120,000 unit per capsule 1-2 capsule 1-2 capsule, Oral, 3 TIMES DAILY WITH MEALS, First dose on Fri03/28/20 at 0830, Until Discontinued, Patient to self-determine dose based on amount eaten., Routine Given 03/29/2020 8:03 AM EST 2 capsules Given 03/28/2020 5:12 PM EST 2 capsules metoclopramide (REGLAN) injection 10 mg Given 03/28/2020 6:55 AM EST 10 mg 10 mg, Intravenous, EVERY 6 HOURS SCHEDULED, First dose on Fri03/25/20 at 0000, Until Discontinued, Doses greater than 10mg should be diluted into 50ml NS. Once taking PO, should switch to 4 times daily AC and HS dosing Given 03/28/2020 12:32 AM EST 10 mg Given 03/27/2020 5:09 PM EST 10 mg metoclopramide (Reglan) tablet 10 mg Given 03/29/2020 10:41 AM EST 10 mg 10 mg, Oral, 4 TIMES DAILY BEFORE MEALS & NIGHTLY, First dose on Fri03/28/20 at 1130, Until Discontinued, GIVE REGARDLESS OF IF EATING OR NOT, Routine Given 03/29/2020 6:50 AM EST 10 mg Given 03/28/2020 10:00 PM EST 10 mg ondansetron (ZOFRAN) injection 4 mg Given 03/24/2020 12:37 PM EST 4 mg 4 mg, Intravenous, ONCE, 1 dose, On Fri03/24/20 at 1231, STAT pantoprazole (PROTONIX) injection 40 mg Given 03/27/2020 8:26 PM EST 40 mg 40 mg, Intravenous, 2 TIMES DAILY, First dose on Fri03/24/20 at 2100, Until Discontinued Given 03/27/2020 8:06 AM EST 40 mg Given 03/26/2020 8:05 PM EST 40 mg pantoprazole EC (Protonix) tablet 40 mg Given 03/29/2020 8:03 AM EST 40 mg 40 mg, Oral, 2 TIMES DAILY, First dose on Fri03/28/20 at 0900, Until Discontinued, DO NOT CRUSH OR OPEN, Routine Given 03/28/2020 10:00 PM EST 40 mg Given 03/28/2020 8:50 AM EST 40 mg phenol 1.4% (CHLORASEPTIC) spray 1 spray Given 03/25/2020 1:46 PM EST 1 spray 1 spray, Oral, EVERY 2 HOURS PRN, Starting on Fri03/24/20 at 1647, Until Fri03/29/20 at 1549, Irritation, STAT Given 03/25/2020 7:50 AM EST 1 spray senna-docusate (Pericolace) 8.6-50 mg per Given 2019 8:03 AM EST 2 tablets tablet 2 tablet 2 tablet, Oral, 2 TIMES DAILY, First dose on Fri03/28/20 at 0900, Until Discontinued, Routine Given 03/28/2020 10:00 PM EST 2 tablets Given 03/28/2020 8:49 AM EST 2 tablets sodium chloride 0.9 % (flush) flush 5 mL Given 03/29/2020 8:04 AM EST 5 mLs 5 mL, Intravenous, 2 TIMES DAILY, First dose on Fri03/24/20 at 2100, Until Discontinued, Recovery (Recovery-Hospital Unit), Routine Given 03/28/2020 10:00 PM EST 5 mLs Given 03/28/2020 8:50 AM EST 10 mLs tube feeding diet New Bag 03/24/2020 9:00 PM EST 500 mLs 50 mL/hr 500 mL, Per J Tube, at 50 mL/hr, CYCLIC, Starting on Fri03/24/20 at 2100, Until Fri03/25/20 at 0906, Administer flushes and check residuals per policy tube feeding diet New Bag 03/28/2020 12:04 AM EST 1,248 mLs 52 mL/hr 1,248 mL, Per J Tube, at 52 mL/hr, CONTINUOUS, Starting on Fri03/25/20 at 1000, Until Fri03/28/20 at 1200, Administer flushes and check residuals per policy New Bag 03/26/2020 11:11 PM EST 1,248 mLs 52 mL/hr Rate/Dose Verify 03/26/2020 8:10 PM EST 52 mL/hr tube feeding diet New Bag 03/29/2020 1:38 AM EST 1,260 mLs 70 mL/hr 1,260 mL, Per J Tube, at 70 mL/hr, CYCLIC, Starting on Fri03/28/20 at 1800, Until Fri03/29/20 at 1549, Administer flushes and check residuals per policy New Bag 03/28/2020 6:00 PM EST 1,260 mLs 70 mL/hr documented in this encounter Active and Recently Administered Medications Times are shown in EST. Scheduled Medication Order 03/27/2020 03/28/2020 03/29/2020 docusate sodium (Colace) (10 mg/mL) oral liquid 100 mg (CANCELED) 0900 (Not Given - Provider: Jordan Lea RN - Reason: Patient/family refused)2025 (Given - Provider: Anna Mcgrath RN) 100 mg, Per J Tube, 2 TIMES DAILY, First dose on Fri03/24/20 at 2100, Until Discontinued, Routine heparin (Porcine) subcutaneous injection 5,000 Units 0 507 (Given - Provider: Zia Mckoy RN)1348 (Given - Provider: Jordan Lea RN)2105 (Given - Provider: Leatha Murphy RN) 0655 (Given - Provider: Leatha Murphy RN)1508 (Given - Provider: Jenniffer Coats RN)2200 (Given - Provider: Valeria Tsang RN) 0649 (Given - Provider: Valeria Tsang RN) 5,000 Units, Subcutaneous, EVERY 8 HOURS SCHEDULED, First dose on Fri03/24/20 at 2200, Until Discontinued, Routine sinovj-fmlauucd-sxgrhzq DR (Creanalilia 24) 24 ,000-76,000 -120,000 unit per capsule 1 capsule 1 capsule, Oral, WITH SNACKS, Starting T 03/28/20 at 0731, Until Fri03/29/20 at 1549, Routine mtbcxa-uhwjimti-xvrymnd DR (Creanalilia 24) 24 ,000-76,000 -120,000 unit per capsule 1- 2 capsule 0850 (Given - Provider: Shelli Coats RN)1023 (Given - Provider: Jenniffer Coats RN)1158 (Given - Provider: Jenniffer Coats RN)1712 (Given - Provider: Jenniffer Coats RN) 0803 (Given - Provider: Jordan Lea RN) 1235 (Given - Provider: Jordan Lea, CLARKE) 1-2 capsule, Oral, 3 TIMES DAILY WITH ME ALS, First dose on Fri03/28/20 at 0830, Until Discontinued, Patient to self-determine dose based on amount eaten., Routine metoclopramide (REGLAN) injection 10 mg (CANCELED) 050 7 (Given - Provider: Zia Mckoy, CLARKE)1106 (Given - Provider: Jordan Lea RN)1709 (Given - Provider: Jordan Lea RN) 0032 (Given - Provider: Leatha arroyo, CLARKE)0655 (Given - Provider: Leatha Murphy RN) 10 mg, Intravenous, EVERY 6 HOURS SCHEDU LED, First dose on Fri03/25/20 at 0000, Until Discontinued, Doses greater than 10mg should be diluted into 50ml NS. Once taking PO, should switch to 4 times daily AC and HS dosing metoclopramide (Reglan) tablet 10 mg 115 8 (Given - Provider: Jenniffer Coats RN)1712 (Given - Provider: Jenniffer Coats RN)2200 (Given - Provider: Valeria Tsang, CLARKE) 0650 (Given - Provider: Valeria Tsang , CLARKE)1041 (Given - Provider: Jordan Lea RN) 10 mg, Oral, 4 TIMES DAILY BEFORE MEALS & NIGHTLY, First dose on Fri03/28/20 at 1130, Until Discontinued, GIVE REGARDLESS OF IF EATING OR NOT, Routine pantoprazole (PROTONIX) injection 40 mg (CANCELED) 080 6 (Given - Provider: Jordan Lea RN)2025 (Given - Provider: Anna Mcgrath RN) 40 mg, Intravenous, 2 TIMES DAILY, First dose on Fri03/24/20 at 2100, Until Discontinued pantoprazole EC (Protonix) tablet 40 mg 0850 (Given - Provider: Jenniffer Coats RN)2200 (Given - Provider: Valeria Tsang, CLARKE) 0803 (Given - Provider: Jordan Lea RN) 40 mg, Oral, 2 TIMES DAILY, First dose o n Fri03/28/20 at 0900, Until Discontinued, DO NOT CRUSH OR OPEN, Routine senna-docusate (Pericolace) 8.6-50 mg per tablet 2 tablet 0849 (Given - Provider: Jenniffer Coast, CLARKE)220 (Given - Provider: Valeria Tsang, CLARKE) 08 (Given - Provider: Jordan Lea, CLARKE) 2 tablet, Oral, 2 TIMES DAILY, First dos e on Fri03/28/20 at 0900, Until Discontinued, Routine sodium chloride 0.9 % (flush) flush 5 mL 0811 (Given - Provider: Jordan Lea RN)2025 (Given - Provider: Anna Mcgrath, CLARKE) 0850 (Given - Provider: Jenniffer Coats, CLARKE)2199 (Given - Provider: Valeria Tsang, CLARKE) 08 (Given - Provider: Jordan Lea RN) 5 mL, Intravenous, 2 TIMES DAILY, First dose on Fri03/24/20 at 2100, Until Discontinued, Recovery (Recovery-Hospital Unit), Routine Continuous Medication Order 03/27/2020 03/28/2020 03/29/2020 lactated ringers infusion (CANCELED) 0810 (New Bag - P rovider: Jordan Lea, CLARKE)1200 (Stopped - Provider: Jordan Lea RN) 50 mL/hr, at 50 mL/hr, Intravenous, CONT INUOUS, Starting Fri03/24/20 at 2100, Until Fri03/27/20 at 0819, Recovery (Recovery-Hospital Unit) tube feeding diet () 0004 (New Ba g - Provider: Leatha Murphy, CLARKE)1202 (Stopped - Provider: Jenniffer Coats, CLARKE) 1,248 mL, Per J Tube, at 52 mL/hr, KULWANT NUOUS, Starting 03/25/20 at 1000, Until Fri03/28/20 at 1200, Administer flushes and check residuals per policy tube feeding diet 1800 (New Bag - Provider: Shelli Coats RN) 0138 (New Bag - Provider: Valeria Tsang RN) 1,260 mL, Per J Tube, at 70 mL/hr, CYCLI C, Starting on Fri03/28/20 at 1800, Until Fri03/29/20 at 1549, Administer flushes and check residuals per policy PRN Medication Order 03/27/2020 03/28/2020 03/29/2020 acetaminophen (Tylenol) tablet 650 mg 650 mg, Oral, EVERY 6 HOURS PRN, Startin g Tu03/28/20 at 0729, Until Fri03/29/20 at 1549, Pain, Maximum dose of acetaminophen is 4000 mg from all sources in 24 hours. When ordered for pain, acetaminop hen should be given even when other orde red pain medications are indicated. , Routine lidocaine (XYLOCAINE) 10 mg/mL (1 %) injection 3 mg 3 mg (0.3 mL), Subcutaneous, ONCE PRN, 1 dose, Starting Fri03/24/20 at 2008, Until Fri03/29/20 at 1549, for discomfort with PIV insertion, Recovery (Recovery-Hospital Unit), Routine phenol 1.4% (CHLORASEPTIC) spray 1 spray 1 spray, Oral, EVERY 2 HOURS PRN, Starti ng Fri03/24/20 at 1647, Until Fri03/29/20 at 1549, Irritation, STAT sodium chloride 0.9 % (flush) flush 5-20 mL 5-20 mL, Intravenous, EVERY 1 MIN PRN, S tarting Fri03/24/20 at 2008, Until Fri03/29/20 at 1549, flush, Flush pertains to all indwelling lines. Flush per protocol found in the job aid using the link pr ovided on this medication record., Recovery (Recovery-Hospital U nit), Routine documented in this encounter Care Teams Production Line Mechanic Relationship Specialty Start Date End Date Irving Wheeler MD PCP - General 06/23/[address] [place] [id number] documented as of this encounter
--- OUTSIDE RECORDS SUMMARY | 2022-02-01 00:26 | XMS_ITS | Encounter Summary ---
:1960 Author Organization [facility] [place] [address] Care Team Providers Name Role Phone Irving Wheeler MD Primary Care Provider [phone] Reason for Visit Reason Onset Date Comments Prior Authorization 03/01/2020 Rec'd call from Deyanira Genao RN at [facility] regarding inpatient authorizat ion request. Confirmed that patient is still in- patient and she said she will work the auth from 02/22- 02/27 (5 days), but urgently requests updated cli nicals from 02/26 and forward to obtain additional da ys' stay. Please fax to [phone], ATTN: Deyanira Genao and include case#[id number]. She can be reached o n direct and confidential work cell at [phone] . Encounter Details Date Type Department Care Team Description 03/01/2020 Telephone Revenue Management Elba Schultz Prior Authorization Division (Rec'd call from Deyanira Genao [facility] RN at [facility] [place] [address] authorization request. [phone] Confirmed that patient is still in-patien t and she said she will w ork the auth from 02/22 -02/27 (5 days), but urge ntly requests update d clinicals from 02/26 and forward to obta in additional days ' stay. Please fax to [phone], A TTN: Deyanira Genao and include case#[id number]. S he can be reached on dire ct and confidential wo rk cell at [phone].) Social History Tobacco Use Types Packs/Day Years [...] Dozier MD [facility] ON[facility]OGY [place], [place] [address] (Wo rk) documented as of this encounter Goals Goal Patient Goal Associated Recent Patient-Stated? Author Type Problems Progress DH Home Medication Patient No Tamera calvillo, Compliance and Facing Brandt Morin, Understanding Action Plan [facility] Note: Formatting of this note might be d ifferent from the original. Remain 95% adherent to Imatinib therapy without significant neutropenia as assessed by CBC labs in clinic every 1 to 3 months documented as of this encounter Visit Diagnoses Not on filedocumented in this encounter Care Teams Date Pitter Relationship Specialty Start Date End Date Irving Wheeler MD PCP - General 06/23/[address] [place] [id number] documented as of this encounter
--- OUTSIDE RECORDS SUMMARY | 2022-02-01 00:27 | XMS_ITS | Encounter Summary ---
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 Procedures PRO PART REMV PANC, PROX+PART DUOD+ANAST @PANCREATECTOMY, WHIPPLE TYPE WITH PANCREATOJEJUNOSTOMY (WRVU 52.79) Referral ID Status Reason Start Date Expiration Date Visits Requ ested Visits Authorized [id number] 1 1 Encounter Details Date Type Department Care Team Description 02/20/2020 [facility] Alanna Enriquez COVID-[place] [address] Social History Tobacco Use Types Packs/Day [...] and Oncology Morris Dozier MD [facility] [address] [place]COLOG[place] [phone] (Wo rk) documented as of this encounter Goals Goal Patient Goal Associated Recent Patient-Stated? Author Type Problems Progress DH Home Medication Patient No [place], Compliance and Facing Brandt Morin, Understanding Action Plan [facility] Note: Formatting of this note might be d ifferent from the original. Remain 95% adherent to Imatinib therapy without significant neutropenia as assessed by CBC labs in clinic every 1 to 3 months documented as of this encounter Procedures Procedure Name Priority Date/Time Associated Diagnosis Comme nts COVID-19 PCR STAT 02/20/2020 1:27 PM COVID-19 ruled out Res ults for this EDT procedure are i n the results section . documented in this encounter Results COVID-19 PCR (02/20/2020 1:27 PM EDT) [facility] Method Time Signature SARS-CoV-2 Not Detected Not Detected [facility] Comment: This result should be interpreted in com bination with the clinical observations, patient history and epidem iological information in making a final diagnosis. For testing of asymptomatic i ndividuals, assay performance characteristics and clinical utility hav e not been evaluated. Testing for SARS-CoV-2 (Severe acute respiratory syn drome coronavirus 2, formerly known as 2019 novel coronavirus or 2019-nCoV) to aid in the diagnosis of COVID-19 is performed using the [facility] [employer] m JEFFREY S-CoV-2 Assay as authorized by the FDA Emergency Use Authorization (EUA). This EUA assay is intended for In-vitro Diagnostic (IVD) use with respiratory sp ecimens such as nasopharyngeal swabs collected from individuals during the ac lovelock phase of infection. This assay is performed based on the instructions for use provided by [employer] and additional guidance provided by CDC and FDA. Testing is performed in the [facility] within the Department of Pathology and Laboratory Medicine at [facility], certified under the Clinical Laboratory Improvement Amendments of 1988 (CLIA), 42 U.S.C. 263a, to perform high complexi ty tests. Assay performance has been verified according to clinical laborator y regulatory requirements for use with specimens collected from individuals maribell pected of COVID-19. Test results are provided above. A result of ? Not Detected? indicates that the viral RNA target is not present above the limit of detect ion, but does not preclude SARS-CoV-2 infection. False negative results may oc cur if a specimen is improperly collected, transported or handled; if am plification inhibitors are present; or if inadequate numbers of viral particles are present in the specimen. When a diagnostic test is negative, the possibi lity of a false negative result should be considered in the context of a patien t? s recent exposures and the presence of clinical signs and symptoms consisten t with COVID-19. A result of ? Detected? indicates that RNA from SARS-CoV-2 was d etected and the patient is infected. As required or requested by public health a uthorities, positive specimens may be sent for additional testing. Positive an d negative predictive values for this test are highly dependent on disease pre valence. A result of ? Invalid? indicates that neither the viral RNA tar gets nor the internal control target was detected. An invalid result suggests the presence of inhibitors. Recollection and re-testing is recommend ed in the case of an invalid result. CDC COVID-19 criteria for testing on hum an specimens and clinical management guidance information are available at e CDC Coronavirus Disease 2019 (COVID-19) webpage under ? Information for Healthcare Professionals? 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 Swab [facility] Specimen (Source) Anatomical Collection Method Collection Time Re ceived Time Location / / Volume Laterality Nasopharyngeal swab 02/20/2020 1:27 02/19 (specimen) PM EDT 1:27 PM EDT Comment: Symptoms->Asymptomatic Resulting Agency Comment Spec In Lab Emely Galdamez MD MICROBIOLOGY - GENERAL ORDER AYDIN Performing Organization Address City/State/[place] [address] documented in this encounter Visit Diagnoses Diagnosis COVID-19 ruled out documented in this encounter Care Teams Nephrology Social Worker Relationship Specialty Start Date End Date Irving Wheeler MD PCP - General 06/23/[address] [place] [phone] documented as of this encounter
--- OUTSIDE RECORDS SUMMARY | 2022-02-01 00:27 | XMS_ITS | Encounter Summary ---
:1960 Author Organization [facility] [place] [address] Care Team Providers Name Role Phone Irving Wheeler MD Primary Care Provider [phone] Reason for Visit Auth/Cert Specialty Diagnoses / Procedures Referred By Contact Refer red To Contact Diagnoses GIST (gastrointestinal stromal tumor), malignant MALIGNANT GIST OF THE DUODENUM MALIGNANT GIST OF THE DUODENUM Procedures PRO PART REMV PANC, PROX+PART DUOD+ANAST @PANCREATECTOMY, WHIPPLE TYPE WITH PANCREATOJEJUNOSTOMY (WRVU 52.79) Referral ID Status Reason Start Date Expiration Date Visits Requ ested Visits Authorized [id number] 1 1 Encounter Details Date Type Department Care Team Description 02/23/2020 - [facility] 2 [place] Carlee Garvey Malignant 03/01/2020 Encounter Zoe Purdy MD [facility] ONE MEDICAL stromal tumor (GIST) of One [facility] small intestine [facility] GENERAL SURGERY [place] [id number] [phone] [id number] [phone] Social History Tobacco Use Types Packs/Day Years [...] Sign Reading Time Taken Comments Blood Pressure 114/68 03/01/2020 8:04 AM EDT Pulse 84 03/01/2020 8:04 AM EDT Temperature 37.3 ??C (99.1 ??F) 03/01/2020 8:04 AM EDT Respiratory Rate 16 03/01/2020 8:04 AM EDT Oxygen Saturation 96% 03/01/2020 8:04 AM EDT Inhaled Oxygen Concentration - - Weight 52.3 kg (115 lb 4.8 oz) 02/23/2020 6:09 AM EDT Height 159 cm (5' 2.6) 02/23/2020 6:09 AM EDT Body Mass Index 20.69 02/23/2020 6:09 AM EDT documented in this encounter Discharge Summaries Britany Villanueva, RAILROAD BRAKE OPERATOR - 03/01/2020 9:37 AM EDT General Surgery Inpatient - Discharge Summary Patient Name: Mary Kay Gonzalez Patient Age: 59 y.o. Birthdate: 1960 Admit date: 02/23/2020 Discharge date: 03/01/20 Admitting Physician: Carlee Galdamez MD Primary Diagnosis: GIST (gastrointestinal stromal tumor), malignant Secondary Diagnosis: Active Hospital Problems Diagnosis ??? GIST (gastrointestinal stromal tumor), malignant ??? Gastroparesis Post-whipple Gastroparesis / Delayed Gastric Emptying Resolved Hospital Problems No resolved problems to display. Active Non-Hospital Problems Diagnosis ??? Anemia ??? Disorder of thyroid gland ??? Arthritis ??? Tinnitus ??? Vitamin D deficiency ??? Osteoarthrosis ??? 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 Carlee Galdamez's Office Visit Note dated 02/08/2020. 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 ?? History of the present illness: Mrs. Gonzalez is a 59 year old woman from [place], [place]. She presented with several months history of nausea and then vomiting to the [facility] ED with a work-up described below. ?? 11/22/2019 CT abdomen and pelvis ([facility]). ?? 11/25/[address] Arrieta with endosonographic findings reviewed below: ?? An irregular mass was identified in the region of the pancreatic head. The mass was focally adherent to the duodenal wall and may arise from it. The mass was heterogenous. The mass measured 61 mm by 54 mm in??maximal cross-sectional diameter. The outer margins were irregular. An intact interface was seen between the mass and the adjacent vascular structures suggesting a lack of invasion. Fine needlebiopsy was performed. Six passes were made with the 22 gauge [employer] biopsy needle using a transduodenal approach. A visible core of tissue was obtained. A preliminary cytologic examination was performed. Final cytology results are pending. There was no sign of significant endosonographic abnormality in the gallbladder. The bile duct appears to be compressed laterally but the mass as it courses around it. Mildly dilated intrahepatic ducts. Otherwise normal??visualized portions of liver (limited exam). No lymphadenopathy seen. ? Impression: ??6 cm mass in the region of the pancreas head that may actually be??arising from the duodenal wall and may represent a GIST or sarcoma, less likely a neuroendocrine tumor or adenocarcinoma-s/p FNB. ERCP deferred as the bile duct is extrinsically compressed but not clearly obstructed yet, and LFTs are normal. ?? Recommendation: ??Discharge patient to home. Advance diet as tolerated. Await cytology results. Present at GI Tumor Board for treatment recommendations. ?? 11/25/2019 EUS FNA cytopathology per Acc# [id number] showed Neoplastic Cells Present. Consistentwith g astrointestinal [...] and then eventually she presented to the [facility] ED with a hemoglobin of 8.5. She [...] put on about 5 to 6 pounds. ?? 12/31/2019 she started imatinib for 400 mg twice daily per Dr. Dozier and received approximately 1 month of treatment before the fever and neutropenia hospitalization. She was discharged from the hospital on 02/04/2020. Operations/Major Procedures: Operations: 02/23/2020 Surgeon(s) and Role: * Carlee Galdamez MD - Primary * Jaycee Sweet MD - Resident * Palmer Ledezma MD - Resident: Procedure(s): @PANCREATECTOMY, WHIPPLE TYPE WITH PANCREATOJEJUNOSTOMY (WRVU 52.79) (N/A) @JEJUNOSTOMY TUBE PLACEMENT (WRVU 2.62) (N/A) PANCREATIC STENT INSERTION (WRVU 18.28) (N/A) @OMENTAL FLAP, INTRA-ABDOMINAL (WRVU 6.54) ?? Operative Findings: There is no evidence of metastatic disease. The liver was very healthy-appearing. She had a large softball size mass arising from the duodenum but fortunately it was not invasive tothe underlying peritoneum/IVC or SMA/portal vein. The Whipple resection was therefore quite straightforward. Her pancreas was completely tjyvrc-bhwbynstw-onhs gland and small duct approximately 1 mm indiameter. We elected to stent the pancreatic anastomosis using an externalized 5 Malaysian pancreatic duct stent which was passed approximately 10 cm down into the pancreatic remnant body and tail. A 19 Malaysian Luly drain was placed in through a right lateral stab incision and passed posterior to the bile duct anastomosis and then anterior to the pancreatic anastomosis. We created an omental pedicle flap from the falciform ligament and used this to cover the korin hepatis dissection. A 12 Malaysian feeding jejunostomy tube was placed approximately 30 [...] Monitoring PO intake. TF cycled x 16 hours. 03/01 POD7: No further emesis, hemoglobin stable. Patient cleared for d/c home with VNA and TF services. Important Studies and Lab Data: See below. Pathology: Final Surgical Pathology pending. Microbiology: Body Fluid Culture, Aerobic & Anaerobic Bile (02/22): No growth on Culture. No Neutrophils or microorganisms seen on Gram Stain. No anaerobic organisms isolated. Labs: Lab Results Component Value Date WBC 9.9 (H) 03/01/2020 HGB 11.8 03/01/2020 HCT 36.3 03/01/2020 MCV 83.6 03/01/2020 PLATELET 379 (H) 03/01/2020 Lab Results Component Value Date NA 142 02/29/2020 K 4.1 02/29/2020 CL 107 02/29/2020 CO2 26 02/29/2020 BUN 9 02/29/2020 CREATININE 0.26 (L) 02/29/2020 GLUCOSE 131 02/29/2020 GLUCFASTING 125 (H) 02/03/2020 CALCIUM 8.4 (L) 02/29/2020 ESTGFR 133 02/29/2020 Lab Results Component Value Date ALT 109 (H) 02/25/2020 AST 89 (H) 02/25/2020 ALKPHOS 40 02/25/2020 BILITOT 0.4 02/25/2020 BILIDIR 0.1 02/03/2020 ALBUMIN 2.7 (L) 02/25/2020 PROT 4.9 (L) 02/25/2020 JOSE Fluid Data: ?? Date, POD # JOSE Amylase Level 24 Hour Vol (ml) 02/23, POD 1 2878 110 02/24, POD 2 419 335 02/25, POD 3 142 605 02/26, POD 4 53 295 02/27, POD 5 36 415 ?? Pending Lab Data at Discharge: Final Surgical Pathology pending. Studies: None. Discharge Exam: Last value Range last 12 hrs Temperature Temp: 37.3 ??C (99.1 ??F) Temp: [37.3 ??C (99.1 ??F)-37.4 ??C (99.4 ??F)] Heart Rate Heart Rate: 84 Heart Rate: [84] Blood Pressure BP: 114/68 BP: (114-120)/(67-68) Respiratory Rate Resp: 16 Resp: [16-17] SpO2 SpO2: 96 % SpO2: [95 %-96 %] I/Os: I/O last 3 completed shifts: In: 1571 [P.O.:360; NG/GT:1211] Out: 3075 [Urine:2900; Other:175] I/O this shift: In: 227 [NG/GT:227] Out: - Gen: NAD, alert & oriented x3, pain well-controlled. Sitting up in chair by window. Pulm: CTAB, no crackles/wheezes, no SOB. IS encouraged - pt reaching 1250 on IS. Card: RRR, no CP. Abd: Non-distended, soft, appropriately tender. + bowel sounds, + flatus, LBM 10/20. J-tube with dsgCDI. Previous right abdominal JOSE drain with with urostomy bag in place; small amount of serous output. Wound: Vertical midline abdominal incision ROSY with dermabond; incision is well- approximated and is without erythema, swelling, or drainage. Ext: no edema, 2+ peripheral pulses Discharge Plans: Discharge to: Home VNA: Yes Name of facility: [facility] [place] Contact information: PHONE: [phone] Discharge Conditions/Prognosis: Stable Discharge Medications: The following medications have been prescribed for you. If you notice any adverse reactions to your medications, please contact your primary care physician immediately or go to the nearest Emergency Department. Your Medications New Medications Dose Details acetaminophen 500 mg Tab Commonly known as: Tylenol Take 2 tablets by mouth every 6 hours as needed for Pain. 1,000 mg Refills: 0 docusate sodium 100 mg Cap Commonly known as: Colace Take 1 capsule by mouth 2 times daily as needed for Constipation. 100 mg Refills: [address] til[address]-vjzwfzqx-xqnyepl DR 24,000-76,000 -120,000 unit Cpdr Commonly known as: Creon 24 Take 1-2 capsules by mouth 3 times daily (with meals). With Meals: Take 1-2 capsules by mouth. With Snacks: Take 1 capsule by mouth. 1-2 capsule Quantity: 270 capsule Refills: 3 metoclopramide 10 mg Tab Commonly known as: Reglan Take 1 tablet by mouth 4 times daily for 14 days. 10 mg Quantity: 56 tablet Refills: 0 traMADoL 50 mg Tab Commonly known as: Ultram Take 1 tablet by mouth every 8 hours as needed for Pain (FOR PAIN UNCONTROLLED BY TYLENOL). 50 mg Quantity: 10 tablet Refills: 0 Continued medications, unchanged Dose Details cholecalciferol (Vitamin D3) 50 mcg (2,000 unit) Cap Take 2,000 Units by mouth daily. 2,000 Units Refills: 0 IRON ORAL Take 50 mg by mouth daily. Actually chelated amino acid Iron 50 mg Refills: 0 omeprazole 40 mg Cpdr Commonly known as: PriLOSEC Take 40 mg by mouth Daily. 40 mg Refills: 0 Zinc 50 mg Tab Take 1 tablet by mouth daily. Pt unsure of Zinc dosing 1 tablet Refills: 0 STOPPED Medications MAGNESIUM CARBONATE ORAL Updated Allergies/ADRs: No Known Allergies Scheduled Appointments: Future Appointments Date Time Provider Department Center 03/06/2020 8:[address] [facility] HEM ONC [facility] 03/20/2020 1:00 PM LAB, THREE L Lab 3L [place] [facility] 03/20/2020 2:00 PM Carlee Galdamez MD [facility] SURG [facility] 03/20/2020 2:[address] [facility] SURG [facility] 03/21/2020 12:15 PM LABORATORY, TECH [facility] INF 3K [facility] 03/21/2020 1:30 PM Morris Dozier MD [facility] HEM ONC [facility] Outpatient Services/Studies: CBC (with Diff) Standing Status: Future Standing Exp. Date: 03/01/21 Comprehensive metabolic panel (non-fasting) Standing Status: Future Standing Exp. Date: 03/01/21 Prealbumin Standing Status: Future Standing Exp. Date: 09/19/20 Referral for Home Tube feeds Order Comments: Mary Kay Gonzalez [address] [place] [id number] [place] [address] Medicaid No Narrative: Patient has a feeding tube and requires tube feedings and supplies necessary to maintain nutritional support . VENDOR: [place], [place] or Supporting Diagnosis: GIST Hgt: 159 cm Weight: 52.3 kg Formula Ordered: Peptamen AF Formula Volume/Rate/Feeding Schedule: Peptamen AF goal rate is 52 ml per hour x16 hours daily (CYCLIC from 4pm - 8am, OFF from 8am - 4pm) Kcal/ day provided: 832 ml formula, 998 calories, 63 grams protein, 672 ml water from formula and 66% of RDI's for vitamins and minerals. Feeding Tube Flushes: You have a J- tube through which tube feeds will be given. Please flush your J-tube with 20cc luke warm tap water before and after feedings, before and after any medications administered via the J-tube, daily, and as needed for patency. NO crushed meds via the J-tube! Dressings at Tube site: Yes, Please change your J-tube dressing every 3 days and as needed. Feeding Tube Type: J Tube Method of Administration: Pump w/IV pole Number of Refills : 2 Question Response Notes Vendor / contact information [facility] Patient location post discharge [facility] home in [facility] Service requested Tube feeds Start date 03/01/2020 Responsible MD post discharge contact info PCP and Dr. Galdamez Referral to Home Health - at DISCHARGE Order Comments: DOCUMENTATION FOR VNA SERVICES (INCLUDING THOSE PATIENTS WITH MEDICARE COVERAGE REQUIRING HOME VNA SERVICES AND/OR HOSPICE SERVICES) PATIENT'S LOCATION: Mary Kay Gonzalez [address] [place] [address] Patient will be staying with a friend at discharge Caity Jordan [address] [place] [address] Manager Assurance's Name: self In discussion with the attending physician, it is certified that this patient is under their care and that they, or a Nurse Practitioner,Clinical Nurse specialist or Physician Web Interface Developer who is working directly with them, had a face to face encounter that meets the physician face to face encounter requirements with this patient on 02/29/2020 The encounter with the patient was in whole, or in part, for the following medical condition, which is the primary reason for home health care services: Gastrointestinal stromal tumor In discussion with the provider, it is certified that, based on their findings, the following services are medically necessary for home health services. To provide the following care/treatments with the clinical findings supporting the need for servicesas follows: HOME CARE ORDERS: RN ORDERS: Assess wound or incision, vital signs, cardiopulmonary status, nutrition, hydration, elimination, meds effectiveness and management; reinforce education re health issues. Reinforce J-tube teaching / TF teaching. Urostomy bag to previous right abdominal JOSE site. HOME HEALTH CARE AGENCY: [facility] PHONE: [phone] FAX: [phone] Start of care: 03/01/20 - Day of Discharge for TF set-up Please note that any additional orders needs or changes will need to be obtained from this patient'sPCP: Irving Wheeler MD [address] / [facility] [address] All VNA agencies which cover the area of patient's residence have been reviewed, either verbally or in writing, and patient/family have chosen the home health care agency noted Question Response Notes Agency name and contact information [facility] Patient location post discharge Friend's home in [place], [place] What services are requested Registered Nurse Start date 03/01/2020 Responsible MD post discharge contact info PCP and Dr. Galdamez Instructions Given to Patient at Discharge:. An After Visit Summary was printed and given to the patient. Patient Instructions [facility] Department of General Surgery Discharge Instructions CALL [...] than 4,000mg (4g) of tylenol in 24hours. - Unfortunately, Lidoderm patches are not covered by insurance companies for the management of post-operative pain. Instead, we recommend using over the counter SalonPas patches which are a 4% Lidocaine patch and cost about $15 dollars for a box of 6 patches. [x] Narcotic pain medication - You have been prescribed 10 tablets of 50mg of Tramadol. This is a narcotic medication that has several side effects/warnings: 1. Constipation: Narcotics can cause severe constipation. [...] to take in a lot of volume. - We recommend eating a regular healthy diet (ie; fresh fruits, vegetables and fiber-containing foods will assist in wound healing,) [x] You have a J- tube through [...] AF which will be run CYCLIC for 16 hours per day from 4pm to8am (OFF from 8am to 4pm) at a rate of 52cc/hr. Activity: - It is normal to feel [...] to air if it is not draining. Lines/Drains/Tubes: [x] You are being discharged with a urostomy bag over your previous right abdominal JOSE drain site. - Please monitor and record the drain output daily. - When the drain output slows down, you may transition to once daily dry gauze dressing changes. - When the drain output stops, you may leave the site open to air to heal. [x] You are being discharged with a Pancreatic Duct stent that will remain CAPPED and in place until your follow-up appointment with Dr. Galdamez. - Please change the Pancreatic Duct stent dressing every 3 days and as needed. Who to call? If you have concerns or questions: - During the day, it is best to call the [facility] to speak with the Surgery nurses. The number is [phone]. - During the night or weekends call the [facility] grinding machine operator portable at [phone] and ask to speak to the surgery resident suction roller for general surgery. Please note: Your surgeon may not be Engine Pilot, especially during the night or on weekends, so be ready to describe yourself and your surgery when you call. Follow up appointments: Future Appointments Date Time Provider Department Center 03/06/2020 8:[address] [facility] HEM ONC [facility] 03/20/2020 1:00 PM LAB, THREE L Lab 3L [place] [facility] 03/20/2020 2:00 PM Carlee Galdamez MD [facility] SURG [facility] 03/20/2020 2:[address] [facility] SURG [facility] 03/21/2020 12:15 PM LABORATORY, TECH [facility] INF 3K [facility] 03/21/2020 1:30 PM Morris Dozier MD [facility] HEM ONC [facility] [x] Follow-up appointment with General Surgery has already been scheduled [] A request for a follow-up appointment has been made and you should receive information via phone/mail in the next week. If you do not hear anything, please call the clinic at [phone] to confirmor reschedule. If you need a prior authorization, please call the General Surgery Clinic nurses [phone] for prior authorizations assistance General Instructions None Acute Opioid Prescribing: Opioid PDMP 02/08/2020 [place] PDMP Query Date 03/01/2020 [place] PDMP Query Date 03/01/2020 No flowsheet data found. Acute Opioid Specific Questions 02/08/2020 Date Acute Consent signed 03/01/2020 Considered the risk of opioid misuse, abuse, diversion? Yes Considered options for non-pharmacological modalities and non-opioid therapy? Yes Some recent data might be hidden Mary Kay Gonzalez is being prescribed a prescription opioid for the treatment of acute post-operative pain related to surgery. Mary Kay Gonzalez has been advised to take the smallest dose possible to controltheir pain and as their pain improves to take smaller doses and increase the time between doses.The patient's risk for opioid misuse, abuse or diversion have been considered. In addition to this medication, non-opioid therapies and non-pharmacologic modalities such as heating pad, ice, and activity modification have been recommended as appropriate for adjunct treatment of their pain. I have discussed the risks and potential side effects of opioid medications, that include but are not limited to, addiction, overdose and , dependence, tolerance, osteoporosis, constipation, sexual dysfunction, hyperalgesia and crime victimization. The patient is also informed of: - the risks of keeping unused medication -counseled on keeping opioids locked -counseled on safe disposal of unused medication -dangers of operating a motor vehicle or heavy machinery -if a renewal is required, they shall return for an in-office follow up for reevaluation. The Acute Opioid Therapy Informed Consent form has been completed and sent to medical records for scanning to chart. Follow-up Recommendations for Providers: - Routine post-operative care. - You will need to take [...] Irving Wheeler MD Signed: Britany Villanueva APRN [facility] Surgical Oncology Service Team Pager #[phone] 03/01/2020 10:46 AM documented in this encounter Discharge Instructions Patient InstructionsBritany Villanueva APRN - 02/23/2020 12:07 PM EDT [facility] Department of General Surgery Discharge Instructions CALL [...] than 4,000mg (4g) of tylenol in 24hours. - Unfortunately, Lidoderm patches are not covered by insurance companies for the management of post-operative pain. Instead, we recommend using over the counter SalonPas patches which are a 4% Lidocaine patch and cost about $15 dollars for a box of 6 patches. [x] Narcotic pain medication - You have been prescribed 10 tablets of 50mg of Tramadol. This is a narcotic medication that has several side effects/warnings: 1. Constipation: Narcotics can cause severe constipation. [...] to take in a lot of volume. - We recommend eating a regular healthy diet (ie; fresh fruits, vegetables and fiber-containing foods will assist in wound healing,) [x] You have a J- tube through [...] AF which will be run CYCLIC for 16 hours per day from 4pm to8am (OFF from 8am to 4pm) at a rate of 52cc/hr. Activity: - It is normal to feel [...] to air if it is not draining. Lines/Drains/Tubes: [x] You are being discharged with a urostomy bag over your previous right abdominal JOSE drain site. - Please monitor and record the drain output daily. - When the drain output slows down, you may transition to once daily dry gauze dressing changes. - When the drain output stops, you may leave the site open to air to heal. [x] You are being discharged with a Pancreatic Duct stent that will remain CAPPED and in place until your follow-up appointment with Dr. Galdamez. - Please change the Pancreatic Duct stent dressing every 3 days and as needed. Who to call? If you have concerns or questions: - During the day, it is best to call the 4L General Surgery Clinic to speak with the Surgery nurses. The number is [phone]. - During the night or weekends call the [facility] grinding machine operator portable at [phone] and ask to speak to the surgery resident suction roller for general surgery. Please note: Your surgeon may not be Engine Pilot, especially during the night or on weekends, so be ready to describe yourself and your surgery when you call. Follow up appointments: Future Appointments Date Time Provider Department Center 03/06/2020 8:[address] [facility] HEM ONC [facility] 03/20/2020 1:00 PM LAB, THREE L Lab 3L [facility] [place] 03/20/2020 2:00 PM Carlee Galdamez MD [facility] SURG [facility] 03/20/2020 2:[address] [facility] SURG [facility] 03/21/2020 12:15 PM LABORATORY, TECH [facility] INF 3K [facility] 03/21/2020 1:30 PM Morris Dozier MD [facility] HEM ONC [facility] [x] Follow-up appointment with General Surgery has already been scheduled [] A request for a follow-up appointment has been made and you should receive information via phone/mail in the next week. If you do not hear anything, please call the clinic at [phone] to confirmor reschedule. If you need a prior authorization, please call the [facility] nurses [phone] for prior authorizations assistance AttachmentsThe following attachments cannot be sent through Care Everywhere. Feeding Tube: General Info (Romanian)documented in this encounter Medications at Time of Discharge Medication Sig Dispensed Refills Start Date End Date traMADoL (Ultram) 50 mg 1 tablet 0 03/01/2020 Tablet sucralfate (Carafate) 1 Every 6 hours. 0 07/28/19 20 gram Tablet xxwyfd-ryfyarlh-alouhuo as directed 0 03/01/2020 (Audrey 24) 24,000-76,000 -120,000 unit Capsule, Delayed Release(E.C.) esomeprazole (NexIUM) Every 12 hours. 0 0 40 mg Capsule, Delayed Release(E.C.) acetaminophen (Tylenol) 2 tablets 0 03/01/2020 500 mg Tablet ferrous sulfate (IRON Take 50 mg by mouth 0 ORAL) daily. Actually chelated amino acid Iron cholecalciferol, Take 4,000 Units by 0 Vitamin D3, 50 mcg mouth daily. (2,000 unit) Capsule metoclopramide (Reglan) Take 1 tablet by 56 tablet 0 201903/15/2020 10 mg Tablet mouth 4 times daily for 14 days. acetaminophen (Tylenol) Take 2 tablets by 0 03/0109/04/2020 500 mg Tablet mouth every 6 hours as needed for Pain. sokbdn-yteyrehr-xarermu Take 1-2 capsules by 270 capsule 3 1 01/26/2021 DR Kiser 24) mouth 3 times daily 24,000-76,000 -120,000 (with meals). With unit Capsule, Delayed Meals: Take 1-2 Release(E.C.) capsules by mouth. With Snacks: Take 1 capsule by mouth. docusate sodium Take 1 capsule by 0 03/01/2020 (Colace) 100 mg Capsule mouth 2 times daily as needed for Constipation. traMADoL (Ultram) 50 mg Take 1 tablet by 10 tablet 0 201903/20/2020 Tablet mouth every 8 hours as needed for Pain (FOR PAIN UNCONTROLLED BY TYLENOL). omeprazole (PriLOSEC) Take 40 mg by mouth 0 03/29/2020 40 mg Capsule, Delayed Daily. Release(E.C.) documented as of this encounter Progress Notes Irina Washington RN - 03/01/2020 12:43 PM EDT Acute Pain Service - Epidural 30 Day Follow-up Call - Operative Procedures: Procedure(s) with comments: @PANCREATECTOMY, WHIPPLE TYPE WITH PANCREATOJEJUNOSTOMY (WRVU 52.79) - SUPINE @JEJUNOSTOMY TUBE PLACEMENT (WRVU 2.62) PANCREATIC STENT INSERTION (WRVU 18.28) @OMENTAL FLAP, INTRA-ABDOMINAL (WRVU 6.54) DH AN APS FOLLOWUP CALL: 04/26/2020 11:13 AM Opioid prescription on Discharge: Yes Opioid Prescription at 30 days: No APS Nurse: Irina Washington RN Stacie Beatty RN - 03/01/2020 12:38 PM EDT Pt d/c to friend Jacoby españa per md order. Patient AOx4 hrr, lung sounds clear, no n/v sob or chest pain at time of discharge. +bs, lbm 03/01/2020, voiding clear yellow urine. Patient ambulating independently at this time. Pain well controlled. All LDA's removed besides J tube which will remain in place. All belongings home with patient. Prescriptions given to patient, all discharge instructions reviewed with patient. All questions answered. Report to VNA faxed. Please see flowsheet for full assessment. Stacie Beatty RN Britany Villanueva APRN - 03/01/2020 11:02 AM EDT Surgical Oncology TF Note Mary Kay Gonzalez is a 59 y.o. female with PMH significant for GIST and who is 7 Days Post-Op s/p whipple with BII reconstruction complicated by delayed gastric emptying / gastroparesis. Delayed gastric emptying/gastroparesis is common after this type of surgery, and may take several weeks to months to fully resolve. During this time Ms. Gonzalez may expect to experience frequent bouts of nausea and/or emesis until her GI system is working properly, which is why she is only on a 1/2 portion regular diet at this time for comfort only. Due to having pancreatic surgery, she needs a semi-elemental formula to maximize her absorption. Peptamen AF is a semi-elemental formula used for its ease with absorption, lower carbohydrate amount, and high protein concentration - all which are necessary for post surgical recovery in pancreatic surgery patients. It is for this reason that Ms. Gonzalez will medically require a semi-elemental TF formula (Peptamen AF or equivalent) at the time of discharge, for which we anticipate her needing for >90 days untilshe is able to take in enough oral intake to sustain her nutritional needs post-operatively for healing. Signed: Britany Villanueva APRN Surgical Oncology Service Team Pager #[phone] 03/01/20 11:03 AM ? Marielos Nash RN - 03/01/2020 10:46 AM EDT OFFICE OF CARE MANAGEMENT Simulation Educator Discharge Note Marielos Huynh RN reviewed record and discussed patient with Care Team. Patient plan of care discussed in multidisciplinary rounds and assessment for continuing care and discharge needs. Diagnosis: GIST (gastrointestinal stromal tumor), malignant LOS Hospital: 7 days INSURANCE: Payor: [employer] / Plan: [employer] / Product Type: *No Product type* / SECONDARY INSURANCE: N/A DECISION MAKER: Attempt Cardiopulmonary Resuscitation - Inpatient <no information> Patient is medically ready for discharge today. VNA/VNH confirmed nursing visit today at 2pm to support tube feeds. Jenn from [facility] confirmed a 1pm delivery time for tube feed supplies. Current Referral in place: VNA/VNH and NE. NE teach completed on 02/29/2020 per Jenn. Transportation: Friend will drive patient home via private vehicle when medically ready. Simulation Educator to follow with team and family to assist with discharge needs when patient ready for discharge. Marielos Huynh RN Case Management pgr [phone] Sudha Lazcano RN - 02/29/2020 6:12 PM EDT OUTCOME EVALUATION NOTE: ?? OUTCOME SUMMARY: ?? Pt denied having any pain. She was on a 1/2 portion regular diet, denied having much appetite r/t nausea. Administered compazine, zofran, and reglan for nausea mgmt w/ some effect. Per pt report however she had a red emesis in the afternoon, MD aware and to bedside, Reglan ordered and administered. Will continue to monitor her nausea. She has cyclic TF that was restarted in the evening 52ml/hr. Adequate UOP. BMx2 . Ostomy pouch over JOSE site for drainage. Ambulated in hallway x1, tolerated well and ambulating in room w/o issue. Worked w/ PT/ OT today. PLAN MOVING FORWARD: ?? Nausea mgmt. D/C tmr? Encourage OOB and ambulation. Monitor I&Os. ?? INDIVIDUALIZED FALL PREVENTION INTERVENTIONS:?High risk ?? Patient-specific fall risk factors per assessment: [current deficits]:?Pt has epidural, pain, drains, generalized weakness, Infusing PIV? Assistance [level of assistance required for transfers and ambulation]:?SBA w/??FWW. ?? Supervision [direct monitoring required during toileting and ADLs]:?Hands on. ?? Surveillance [continuous indirect monitoring]:?Bed/chair alarm, masimo, hourly rounding, room near unit station, NKE at bedside, yellow fall band on, environmental modifications (clutter-free environment, tubing secured, bed low, lighting adjusted, nonskid socks when OOB, bed wheels locked, call light with in reach, upper side rails x2, ID bands on). ?? Patient-specific fall prevention interventions for sensory deficits provided, if applicable:?[X] N/A ? CPG GOAL OUTCOME EVALUATION: Kathryn Gonzalez RN - 02/29/2020 3:58 PM EDT Infusion Resource Center Follow up Note: NE Requested same day visit with Paola from [facility]/ on day of discharge so that pt's friend can be available for refresher teach with VNA services. Hospital teaching was completed today with Mary Kay, she did well and feels able to follow teaching sheet independently. Delivery of TF pump and supplies was requested for 1pm delivery time to friends home in [facility] for 03/01. Infusion Resource Center [phone] - 02/29/2020 8:00 AM EDT Nutrition Progress Note Mary Kay Gonzalez is a 59 y.o. female admitted with gastrointestinal stromal tumor now s/p pancreaticoduodenectomy with feeding J-tube placement Reason for intervention: Follow up Diet:regular Nutrition Recommendations: Peptamen AF Goal rate is 52 ml per hour x16 hours daily. At goal, this will provide 832 ml formula, 998 calories, 63 grams protein, 672 ml water from formulaand 66% of RDI's for vitamins and minerals. monitor weight trends Continue creon Yeni Villanueva APRN All Active TF Orders: Peptamen AF Goal rate is 52 ml per hour x16 hours daily. At goal, this will provide 832 ml formula, 998 calories, 63 grams protein, 672 ml water from formulaand 66% of RDI's for vitamins and minerals Active Orders Diet Regular diet Frequency: Effective Now Number of Occurrences: Until Specified Order Comments: 1/2 portion Enteral access: J-tube Oxygen Therapy/airway: O2 Device: None (Room air) Lab Results Component Value Date NA 142 02/29/2020 K 4.1 02/29/2020 CL 107 02/29/2020 CO2 26 02/29/2020 BUN 9 02/29/2020 CREATININE 0.26 (L) 02/29/2020 GFRAA 154 02/29/2020 MAGNESIUM 0.79 02/29/2020 CALCIUM 8.4 (L) 02/29/2020 PHOS 3.6 02/29/2020 AST 89 (H) 02/25/2020 ALT 109 (H) 02/25/2020 ALKPHOS 40 02/25/2020 BILITOT 0.4 02/25/2020 BILIDIR 0.1 02/03/2020 IRON 22 (L) 02/08/2020 Lab Results Component Value Date POCGLU 124 02/29/2020 POCGLU 123 02/28/2020 POCGLU 97 02/28/2020 POCGLU 104 02/28/2020 Skin Status: Shift Pressure Injury Prevention Occiput: No Injury Thoracic Spine: No Injury Sacral: No Injury Ischial - left: No Injury Ischial - right: No Injury Heel - left: No Injury Heel - right: No Injury Elbow - left: No Injury Elbow - right: No Injury Device Sites: O2 sat monitor, IV sites, SCD's/venodynes Other Sites: J tube Relevant medications: creon 24 insulin Last Bowel Movement: 02/29/20 I/O from last 2 shifts: Intake/Output Summary (Last 24 hours) at 02/29/2020 0800 Last data filed at 02/29/2020 0752 Gross per 24 hour Intake 2095 ml Output 3425 ml Net -1330 ml Admit Weight: 52.3 kg Estimated body mass index is 20.69 kg/m?? as calculated from the following: Height as of this encounter: 159 cm (5' 2.6). Weight as of this encounter: 52.3 kg (115 lb 4.8 oz). [place] Body Weight: 113 lbs / 51.3 kg Usual Body Weight: 120 lbs / 54.4 kg per patient report Wt Readings from Last 10 Encounters: 02/23/20 52.3 kg (115 lb 4.8 oz) 02/08/20 52.3 kg (115 lb 3.2 oz) 02/01/20 52.9 kg (116 lb 10 oz) 01/27/20 52.6 kg (116 lb) 01/26/20 52.8 kg (116 lb 6.4 oz) 12/14/19 52.2 kg (115 lb) 12/07/19 53.5 kg (118 lb) 12/06/19 53.5 kg (118 lb) 11/25/19 54.4 kg (120 lb) Above weight history suggests 4% weight loss in 4 months, classified as insignificant in regard to malnutrition evaluation Assessment: (02/24/20-Birgit Dueñas RD) Nutrition intake and intake history/Interview: cyclic tube feedings Estimated needs: Calories: 1550 (30 kcal/kg admit WT) Protein: 75-100 grams (1.5-2.0 g/kg IBW) Tolerance or barriers to meeting needs: n/a Nutrition Focused Physical Exam (NFPE): Not performed Protein-calorie Malnutrition: Not identified (Raji, JPEN J Parenteral Enteral Nutr. 2011;36(3): 273-83) Nutrition to continue to follow up while inpatient Marline Avendaño RD Pager #:[phone] Lidia Jacobs MD - 02/29/2020 7:39 AM EDT Surgical Oncology Inpatient Progress Note Patient Name: Mary Kay JAMES; Age: 2 1960; 59 y.o. Room/Bed: [address] [place] [address] Today's Date: 02/29/20 ID: Mary Kay Gonzalez is a 59 y.o. female with PMH significant for duodenal GIST who is now 6 Days Post-Op s/p Whipple with BII reconstruction and J-tube placement. Procedures this Hospitalization: Whipple with BII reconstruction, J-tube placement (02/22) OR Findings: There is no evidence of metastatic disease. The liver was very healthy- appearing. She had a large softball size mass arising from the duodenum but fortunately it was not invasive to the underlying peritoneum/IVC or SMA/portal vein. The Whipple resection was therefore quite straightforward. Her pancreas was completely ipeszn-wevjnfsuj-lixp gland and small duct approximately 1 mm in diameter. We elected to stent the pancreatic anastomosis using an externalized 5 Malaysian pancreatic duct stent which was passed approximately 10 cm down into the pancreatic remnant body and tail. A 19 Malaysian Luly drain was placed in through a right lateral stab incision and passed posterior to the bile duct anastomosis and then anterior to the pancreatic anastomosis. We created an omental pedicle flap from the falciformligament and used this to cover the korin hepatis dissection. A 12 Malaysian feeding jejunostomy tube was placed approximately 30 cm downstream from the GJ anastomosis. The GJ anastomosis was an antecolicside to side, stapled, gastrojejunostomy anastomosis along the posterior aspect of the stomach. The pancreatic duct stent was exteriorized through a needle tip incision in the left midabdomen, secured to the skin and then connected to bile bag drainage. 24 Hour Events/Subjective: -Diet advanced to regular diet, soup for lunch & salad for dinner. Emesis x2 overnight. -+BM -Denies pain Hospital Course: 02/22 POD0: OR for Whipple; [...] 02/27 POD5: Diet advanced to regular diet. Emesis x2 overnight (salad). TF advanced to goal. Epidural and JOSE drain removed. In Hospital Issues: Active Hospital Problems Diagnosis ??? GIST (gastrointestinal stromal tumor), malignant Resolved Hospital Problems No resolved problems to display. Objective Last value Range last 24hrs Temperature Temp: 37.1 ??C (98.8 ??F) Temp: [36.7 ??C (98.1 ??F)-37.5 ??C (99.5 ??F)] Heart Rate Heart Rate: 86 Heart Rate: [86-90] Blood Pressure BP: 115/60 BP: (101-127)/(60-74) Respiratory Rate Resp: 19 Resp: [16-19] SpO2 SpO2: 97 % SpO2: [96 %-99 %] RA Physical Exam Gen: A+O x 4, NAD HEENT: NC/AT, PERRL CV : RRR Pulm: Breathing comfortably on RA, no respiratory distress. Abd: Non-distended, soft, appropriately tender; midline laparotomy incision ROSY with dermabond; incision is well-approximated and is without erythema, swelling, or drainage. PD stent capped. Ext: SCDs in place. Skin: warm, dry. No edema. Drains: PD stent capped J-tube 24 Hour I/O's: I/O last 3 completed shifts: In: 3057.2 [P.O.:1310; I.V.:837; Other:50.2; NG/GT:860] Out: 4395 [Urine:3600; Other:395; Stool:400] Admit Weight: 52.3 kg Current Weight: Weight: 52.3 kg (115 lb 4.8 oz) Labs: Recent Labs 02/29/2013402/28/2014802/27/20218 WBC 8.3 6.2 8.4 HGB 11.6* 10.0* 11.1* HCT 34.3* 31.1* 34.5* PLATELET 342 285 308 Recent Labs 02/29/2013402/28/2014802/27/20218 NA 142 142 142 K 4.1 3.7 4.0 CL 107 108* 108* CO2 26 27 27 BUN 9 5* 6* CREATININE 0.26* 0.35* 0.36* GLUCOSE 131 112 123 CALCIUM 8.4* 8.1* 8.3* MAGNESIUM 0.79 0.73 0.81 PHOS 3.6 3.5 2.7 JOSE Amylase: 36 Micro: Body Fluid Culture, Aerobic & Anaerobic Bile (02/12): NGTD, GS without microorgs New Imaging: N/A Assessment / Plan: Mary Kay Gonzalez is a 59 y.o. female with PMH significant for duodenal GIST who is now 6 Days Post-Op s/p Whipple with BII reconstruction and J-tube placement. Overall doing well post-operatively. Tolerating PO with durable ROBF. Cycle TF [id number]. TF teaching today. Transition remaining meds to PO. Compazine and zofran for nausea. Anticipated discharge to home Friday NEURO: Scheduled PO tylenol and lido patches for pain; Tramadol per J tube PRN. CV: Hemodynamically normal. PULM: Encourage OOB/IS GI/FEN: Regular diet (half-portions). Cycle TF. Replete electrolytes PRN; standing colace and senna.Zofran/compazine PRN. RENAL: UOP adequate ENDO: SSI Q4H HEME: DVT ppx Lovenox nightly ID: S/p periop antibiotics MSK: OOB, PT/OT PPX: BID PPI, IS, Lovenox, SCDs LINES: PIV, drains as above DISPO: Floor status, Attempt Cardiopulmonary Resuscitation - Inpatient. Cleared for d/c home with VNA and TF services; anticipated DOD 03/01. Lidia Jacobs MD Surgical Oncology Service Team Pager #[phone] 02/29/20 7:40 AM Geneva Martinez - 02/29/2020 7:27 AM EDKaren: MEDICAL STUDENT PROGRESS NOTE Surgical Oncology Inpatient Progress Note Patient Name: Mary Kay JAMES; Age: 2 1960; 59 y.o. Room/Bed: [address] [place] [address]-A Today's Date: 02/29/20 ID: Mary Kay Gonzalez is a 59 y.o. female now 6 Days Post-Op s/p pancreaticoduodenectomy with feeding J-tube placement and externalized PD stent for duodenal GIST. Procedures this Hospitalization: Whipple procedure with B2 reconstruction OR Findings: (from Dr. Galdamez's Op Note) There is no evidence of metastatic disease. The liver was very healthy- appearing. She had a large softball size mass arising from the duodenum but fortunately it was not invasive to the underlying peritoneum/IVC or SMA/portal vein. The Whipple resection was therefore quite straightforward. Her pancreas was completely qviqde-zwiglavrz-jzjy gland and small duct approximately 1 mm in diameter. We elected to stent the pancreatic anastomosis using an externalized 5 Malaysian pancreatic duct stent which was passed approximately 10 cm down into the pancreatic remnant body and tail. A 19 Malaysian Luly drain was placed in through a right lateral stab incision and passed posterior to the bile duct anastomosis and then anterior to the pancreatic anastomosis. We created an omental pedicle flap from the falciformligament and used this to cover the korin hepatis dissection. A 12 Malaysian feeding jejunostomy tube was placed approximately 30 cm downstream from the GJ anastomosis. The GJ anastomosis was an antecolicside to side, stapled, gastrojejunostomy anastomosis along the posterior aspect of the stomach. The pancreatic duct stent was exteriorized through a needle tip incision in the left midabdomen, secured to the skin and then connected to bile bag drainage. 24 Hour Events: -- had nausea most of evening, Zofran x1 but ineffective -- one episode of vomiting (mainly undigested foods from dinner) overnight -- had soft BM x3 and passing flatus -- ambulating well around unit -- no issues with TF In Hospital Issues: Active Hospital Problems Diagnosis ??? GIST (gastrointestinal stromal tumor), malignant Resolved Hospital Problems No resolved problems to display. Objective Last value Range last 24hrs Temperature Temp: 37 ??C (98.6 ??F) Temp: [36.7 ??C (98.1 ??F)-37.5 ??C (99.5 ??F)] Heart Rate Heart Rate: 86 Heart Rate: [86-90] Blood Pressure BP: 127/74 BP: (101-127)/(64-74) Respiratory Rate Resp: 19 Resp: [16-19] SpO2 SpO2: 99 % SpO2: [96 %-99 %] Physical Exam Gen: NAD HEENT: NC/AT, PERRL CV : RRR Pulm: breathing comfortably, no respiratory distress Abd: non-distended, soft, non-tender : CYU Ext: no pedal edema Skin: warm, dry Drains: J-Tube 24 Hour I/O's: I/O last 3 completed shifts: In: 3057.2 [P.O.:1310; I.V.:837; Other:50.2; NG/GT:860] Out: 4395 [Urine:3600; Other:395; Stool:400] Admit Weight: 52.3 kg Current Weight: Weight: 52.3 kg (115 lb 4.8 oz) Labs: Recent Labs 02/29/20 0135 02/28/20 0149 02/27/209 WBC 8.3 6.2 8.4 HGB 11.6* 10.0* 11.1* HCT 34.3* 31.1* 34.5* PLATELET 342 285 308 Recent Labs 02/29/20 0135 02/28/209 02/27/209 NA 142 142 142 K 4.1 3.7 4.0 CL 107 108* 108* CO2 26 27 27 BUN 9 5* 6* CREATININE 0.26* 0.35* 0.36* GLUCOSE 131 112 123 CALCIUM 8.4* 8.1* 8.3* MAGNESIUM 0.79 0.73 0.81 PHOS 3.6 3.5 2.7 Recent Labs 02/28/20 01402/27/20 02102/26/20 0204 02/25/20 0239 02/24/20 0142 AMYLASE 32 39 103* 201* 401* JOSE AMYLASE 36 (02/27) Assessment / Plan: Mary Kay Gonzalez is a 59 y.o. female 6 Days Post-Op s/p pancreaticoduodenectomy with feeding J-tube placement and externalized PD stent for duodenal GIST. She is doing very well overall. Pain control has been well- managed, even with her not taking tylenol overnight. Her nausea and vomiting episode is most likely related to gastroparesis post-procedure. Spoke to her about going slow with PO intake and focusing on softer, easily digestible foods for now as well as spacing meals out. At goal for TF, so plan to cycle today. Goal for discharge tomorrow (Friday). NEURO: perlita liquid tyl and lido patches for pain, oxycodone per J tube PRN (not used) CV: Hemodynamically normal. PULM: Encourage OOB/IS GI/FEN: Regular diet, instructed patient to pace and focus on softer foods; Plan to cycle TF today RENAL: UOP adequate. ENDO: None HEME: DVT ppx enoxaparin ID: S/p periop antibiotics. MSK: OOB, PT/OT PPX: PPI, IS LINES: PIV, J-Tube DISPO: Floor status, Attempt Cardiopulmonary Resuscitation - Inpatient Signed: [place] [facility] Surgical Oncology Service Team Pager #[phone] 02/29/20 7:[address] - 02/28/2020 12:34 PM EDT Nutrition Consult Note Mary Kay Gonzalez is a 59 y.o. female admitted with gastrointestinal stromal tumor now s/p pancreaticoduodenectomy with feeding J-tube placement Reason for intervention: Follow up and s/p whipple, with TF rec's (Peptamen AF) Diet:regular Nutrition Recommendations: NPO or minimal TF x 5 days. Peptamen AF at 30 ml/hr. Goal rate is 52 ml per hour x24 hours daily. At goal, this will provide 1248 ml formula, 1497 calories, 94 grams protein, 1008 ml water from formula and 100% of RDI's for vitamins and minerals. - Monitor hydration status on above TFs. Pt may need additional fluids (~500 ml) depending on IVFs, med flushes, p.o. Intake, etc. - Monitor for need of panc enzymes - Biweekly weights appreciated All Active TF Orders: Tubefeeding Orders (From admission, onward) None Enteral access: J-tube Oxygen Therapy/airway: O2 Device: None (Room air) Lab Results Component Value Date NA 142 02/28/2020 K 3.7 02/28/2020 CL 108 (H) 02/28/2020 CO2 27 02/28/2020 BUN 5 (L) 02/28/2020 CREATININE 0.35 (L) 02/28/2020 GFRAA 140 02/28/2020 MAGNESIUM 0.73 02/28/2020 CALCIUM 8.1 (L) 02/28/2020 PHOS 3.5 02/28/2020 AST 89 (H) 02/25/2020 ALT 109 (H) 02/25/2020 ALKPHOS 40 02/25/2020 BILITOT 0.4 02/25/2020 BILIDIR 0.1 02/03/2020 IRON 22 (L) 02/08/2020 Lab Results Component Value Date POCGLU 104 02/28/2020 POCGLU 102 02/28/2020 POCGLU 96 02/28/2020 POCGLU 108 02/28/2020 POCGLU 104 02/27/2020 POCGLU 85 02/27/2020 Skin Status: Shift Pressure Injury Prevention Occiput: No Injury Thoracic Spine: No Injury Sacral: No Injury Ischial - left: No Injury Ischial - right: No Injury Heel - left: No Injury Heel - right: No Injury Elbow - left: No Injury Elbow - right: No Injury Device Sites: O2 sat monitor, SCD's/venodynes, IV sites Other Sites: epidural,J tube, JOSE Relevant medications: colace, humalog, MgSO4, protonix, abx, senna, dilaudid gtt, zofran prn Last Bowel Movement: 02/28/20 I/O from last 2 shifts: Intake/Output Summary (Last 24 hours) at 02/28/2020 1234 Last data filed at 02/28/2020 1200 Gross per 24 hour Intake 2757.65 ml Output 2280 ml Net 477.65 ml Admit Weight: 52.3 kg Estimated body mass index is 20.69 kg/m?? as calculated from the following: Height as of this encounter: 159 cm (5' 2.6). Weight as of this encounter: 52.3 kg (115 lb 4.8 oz). [place] Body Weight: 113 lbs / 51.3 kg Usual Body Weight: 120 lbs / 54.4 kg per patient report Wt Readings from Last 10 Encounters: 02/23/20 52.3 kg (115 lb 4.8 oz) 02/08/20 52.3 kg (115 lb 3.2 oz) 02/01/20 52.9 kg (116 lb 10 oz) 01/27/20 52.6 kg (116 lb) 01/26/20 52.8 kg (116 lb 6.4 oz) 12/14/19 52.2 kg (115 lb) 12/07/19 53.5 kg (118 lb) 12/06/19 53.5 kg (118 lb) 11/25/19 54.4 kg (120 lb) Above weight history suggests 4% weight loss in 4 months, classified as insignificant in regard to malnutrition evaluation Assessment: (02/24/20-Birgit Dueñas, DOMINICK) Nutrition intake and intake history/Interview: Visited with patient this afternoon, friend at bedside. Patient reports she has a fast metabolism and finds it hard to keep on weight. Patient reports valentin had a good stable appetite and PO intake, has her own garden for veggies and makes homemade ferme nted veggies, kimchi etc. Eats 3 well balanced meals daily: BF- homemade granola cereal, eggs, chicken sausage, light lunch, and good dinner. However friend reports patient was feeling stressed aboutsurgery as timeline was pushed up and this stress could have cause slight weight loss in patient. Disc nutrition therapy once diet is advanced, both were receptive and accepted education materials. Estimated needs: Calories: 1550 (30 kcal/kg admit WT) Protein: 75-100 grams (1.5-2.0 g/kg IBW) Tolerance or barriers to meeting needs: n/a Nutrition Focused Physical Exam (NFPE): Not performed Protein-calorie Malnutrition: Not identified (EDMUNDO Alegria J Parenteral Enteral Nutr. 2011;36(3): 273-83) Nutrition to continue to follow up while inpatient SVITLANA MCINTYRE RD Pager #:[phone] Jaycee Sweet - 02/28/2020 10:35 AM EDT Surgical Oncology Inpatient Progress Note Patient Name: Mary Kay Gonzalez ; Age: 2 1960; 59 y.o. Room/Bed: 208[facility] Today's Date: 02/28/20 ID: Mary Kay Gonzalez is a 59 y.o. female with PMH significant for duodenal GIST who is now 5 Days Post-Op s/p Whipple with BII reconstruction and J-tube placement. Procedures this Hospitalization: Whipple with BII reconstruction, J-tube placement (02/22) OR Findings: There is no evidence of metastatic disease. The liver was very healthy- appearing. She had a large softball size mass arising from the duodenum but fortunately it was not invasive to the underlying peritoneum/IVC or SMA/portal vein. The Whipple resection was therefore quite straightforward. Her pancreas was completely ngcgxb-notfxfptx-gwry gland and small duct approximately 1 mm in diameter. We elected to stent the pancreatic anastomosis using an externalized 5 Malaysian pancreatic duct stent which was passed approximately 10 cm down into the pancreatic remnant body and tail. A 19 Malaysian Luly drain was placed in through a right lateral stab incision and passed posterior to the bile duct anastomosis and then anterior to the pancreatic anastomosis. We created an omental pedicle flap from the falciformligament and used this to cover the korin hepatis dissection. A 12 Malaysian feeding jejunostomy tube was placed approximately 30 cm downstream from the GJ anastomosis. The GJ anastomosis was an antecolicside to side, stapled, gastrojejunostomy anastomosis along the posterior aspect of the stomach. The pancreatic duct stent was exteriorized through a needle tip incision in the left midabdomen, secured to the skin and then connected to bile bag drainage. 24 Hour Events/Subjective: -Diet advanced to CLD, enjoyed some apple juice -+BM -PD stent capped -Denies pain/n/v Hospital Course: 02/22 POD0: OR for Whipple; [...] Diet advanced to clears. Epidural wean initiated. In Hospital Issues: Active Hospital Problems Diagnosis ??? GIST (gastrointestinal stromal tumor), malignant Resolved Hospital Problems No resolved problems to display. Objective Last value Range last 24hrs Temperature Temp: 36.7 ??C (98.1 ??F) Temp: [36.7 ??C (98.1 ??F)-37.1 ??C (98.8 ??F)] Heart Rate Heart Rate: 80 Heart Rate: -- Blood Pressure BP: 101/64 BP: (100-110)/(64-67) Respiratory Rate Resp: 16 Resp: [16] SpO2 SpO2: 97 % SpO2: [96 %-99 %] RA Physical Exam Gen: A+O x 4, NAD HEENT: NC/AT, PERRL CV : RRR Pulm: Breathing comfortably on RA, no respiratory distress. 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 JOSE drain with SS drainage. PD stent capped. Ext: SCDs in place. Skin: warm, dry. No edema. Drains: JOSE drain PD stent capped J-tube Epidural 24 Hour I/O's: I/O last 3 completed shifts: In: 4203.5 [P.O.:1135; I.V.:2252; Other:169.5; NG/GT:647] Out: 2990 [Urine:1850; Other:1140] Admit Weight: 52.3 kg Current Weight: Weight: 52.3 kg (115 lb 4.8 oz) Labs: Recent Labs 02/28/2014802/27/2021802/26/20 020 WBC 6.2 8.4 9.8* HGB 10.0* 11.1* 10.3* HCT 31.1* 34.5* 32.6* PLATELET 285 308 271 Recent Labs 02/28/2014802/27/2021802/26/20 0204 NA 142 142 138 K 3.7 4.0 3.6 CL 108* 108* 106 CO2 27 27 27 BUN 5* 6* 6* CREATININE 0.35* 0.36* 0.29* GLUCOSE 112 123 114 CALCIUM 8.1* 8.3* 7.7* MAGNESIUM 0.73 0.81 0.76 PHOS 3.5 2.7 1.8* JOSE Amylase: 36 Micro: Body Fluid Culture, Aerobic & Anaerobic Bile (02/12): NGTD, GS without microorgs New Imaging: N/A Assessment / Plan: Mary Kay Gonzalez is a 59 y.o. female with PMH significant for duodenal GIST who is now 5 Days Post-Op s/p Whipple with BII reconstruction and J-tube placement. Overall doing well post-operatively. Tolerating PO with durable ROBF. Advance to 1/2 portion reg diet today. D/C JOSE drain. D/C epidural. Adv TF to goal; cycle tomorrow. Goal discharge to home Friday NEURO: Scheduled liquid tyl and lido patches for pain; epidural per APS - agree with wean and removal when able. Oxycodone per J tube PRN. CV: Hemodynamically normal. PULM: Encourage OOB/IS GI/FEN: Regular diet (1/2 portion). Advance TF to gaol. HLIV. Replete electrolytes PRN; standing colace and senna. RENAL: UOP adequate ENDO: SSI Q4H HEME: DVT ppx Lovenox nightly ID: S/p periop antibiotics MSK: OOB, PT/OT PPX: BID PPI, IS, Lovenox, SCDs LINES: PIV, Epidural, drains as above DISPO: Floor status, Attempt Cardiopulmonary Resuscitation - Inpatient. Cleared for d/c home with VNA and TF services; anticipated DOD 03/01. Signed: JAYCEE SWEET MD Surgical Oncology Service Team Pager #[phone] 02/28/20 10:35 AM Kaur Varela RN - 02/28/2020 10:05 AM EDT Office of Care Management (OCM /Caremanger (CM)/ Discharge planning ) ServiceSurg / Onc Pager # [phone] e-DH reviewed. Report received from IDDRs Patient plan of care discussed with Team and Nursing to assessment for continuing care and dischargeneeds. [facility]: 5 DECISION MAKER: Attempt Cardiopulmonary Resuscitation - Inpatient, <no information> Ongoing Issues:DAvanced to 1/2 portion diet today , J/P drain out today, will cycle tube feeds tomorrow . Anticipate home on Fri with VNA and NELC Current Referral in place: [facility] PHONE: [phone] FAX: [phone] Reinforce Tube feed teaching will need same day visit, Need for same day visit noted in MARCELLA with anticipated discharge date of 03/01 per team. Midnight, NH or For tube feeds . Requested a teach for Wednesday 02/28 VNA - Providing Services for : ( RN, .) Barriers to Discharge: None at this time Family Concerns: None at this time Anticipate Transport at time of discharge: family Plan: CM will continue to follow for coordination of care and to facilitate discharge planning. Kaur Varela RN CM Pager # [phone] Britany Villanueva APRN - 02/28/2020 9:24 AM EDT Surgical Oncology Interval Progress Note: Mary Kay Gonzalez is a 59 y.o. female who is 5 Days Post-Op s/p whipple with BII reconstruction for a duodenal GIST. JOSE amylase low and with moderate amount of serosanguinous output; no sign of pancreaticleak. Per discussion with Dr. Galdamez, JOSE drain removed at the bedside. Due to amount of output over last 24 hours, urostomy bag applied to site. Pt tolerated well. JOSE Fluid Data: ?? Date, POD # JOSE Amylase Level 24 Hour Vol (ml) 02/23, POD 1 2878 110 10/16, POD 2 419 335 10/17, POD 3 142 605 10/18, POD 4 53 295 /, POD 5 36 415 ?? Signed: Britany Villanueva APRN Surgical Oncology Service Team Pager #[phone] 02/28/20 9:25 AM Elizabeth Marie MD - 02/28/2020 8:53 AM EDT Acute Pain Service - Epidural Daily Management VITAL SIGNS: Visit Vitals BP 101/64 (BP Location (NBP): Right arm, Patient Position: Lying) Pulse 80 Temp 36.7 ??C (98.1 ??F) (Oral) Resp 16 Ht 159 cm (5' 2.6) Wt 52.3 kg (115 lb 4.8 oz) SpO2 97% BMI 20.69 kg/m?? Body mass index is 20.69 kg/m??. Labs: WBC Date Value Ref Range Status 02/28/2020 6.2 4.0 - 9.5 x10(3)/mcL Final Hemoglobin Date Value Ref Range Status 02/28/2020 10.0 (L) 11.7 - 15.5 gm/dL Final Hematocrit Date Value Ref Range Status 02/28/2020 31.1 (L) 35.7 - 45.8 % Final Platelets Date Value Ref Range Status 02/28/2020 285 145 - 357 x10(3)/mcL Final Operative Procedures: * No procedures listed * APS Opioid Administration Hx All administrations since 02/27/2020 are shown below each listed medication. Other Order Route Rate Dose Action Date HYDROmorphone (Dilaudid) 10 mcg/mL, BUpivacaine (Marcaine) 0.1% (0.1 mg/mL) (1/10%) in sodium chloride 0.9% 250 mL epidural Epidural 0.1 mL/hr 0.1 mL/hr Rate/Dose Change 02/28/2020 Epidural 4 mL/hr 4 mL/hr New Bag 02/27/2020 Epidural 4 mL/hr 4 mL/hr Rate/Dose Change 02/27/2020 DH AN APS EPIDURAL ROUNDIN02/28/2020 8:53 AM Average Numeric Rating Pain Score (0-10):: 0 Post-Op Day:: 5 Epidural Day:: 6 Epidural Infusion (solution):: HYDROmorphone 10 mcg/mL and BUpivacaine 0.1% Epidural Infusion Rate (mL/hr): 4 PCEA Dose (mL): 3 Out of Bed: Yes Ambulation: Yes Able to Use Incentive Spirometry: Yes Escalation of Care: No Tolerating Regular Diet: No Epidural Catheter Removed (Intact unless noted in Comments): No Notes/Plan: Mary Kay is doing very well this morning. She denies any pain and has not received any PCEA demand doses in the last 24 hours. She has had ROBF, is ambulating without issue, and is tolerating a Clear Liquid Diet (with Pelican). Her epidural insertion site is free from signs of infection. Plan: We decreased her epidural rate to 0.1mL/hr to continue wean. Her PCEA dose was left unchanged at 3mLq 20 minutes. If patient's pain remains well-controlled this afternoon we will plan to remove the epidural catheter. The surgical service has added Oxycodone to facilitate continued wean. 13:00 Addendum: Coagulation status is acceptable (Last dose of Lovenox received at 20:40) and pain is unchanged fromthis morning, without the need for any PCEA doses. Epidural removed with intact tip. Insertion site free from signs of infection. Epidural solution wasted with Valeria MIR. IRINA Cain RN, have performed the documentation for this encounter in the presence of and acting as a scribe for Dr. Elizabeth Marie. APS Nurse: Irina Washington RN Fellow:: Irina Gerber MD Attending Physician:: Elizabeth Marie MD I performed the above scribed service and agree with the accuracy of the note. ELIZABETH MARIE MD [facility] [place] - 02/28/2020 7:30 AM EDTSana: MEDICAL STUDENT PROGRESS NOTE Surgical Oncology Inpatient Progress Note Patient Name: Mary Kay Gonzalez ; Age: 2 1960; 59 y.o. Room/Bed: [address] [place], [place] [address] Today's Date: 02/28/20 ID: Mary Kay Gonzalez is a 59 y.o. female now 5 Days Post-Op s/p pancreaticoduodenectomy with feeding J-tube placement and externalized PD stent for duodenal GIST. Procedures this Hospitalization: Whipple procedure with B2 reconstruction OR Findings: (from Dr. Galdamez's Op Note) There is no evidence of metastatic disease. The liver was very healthy- appearing. She had a large softball size mass arising from the duodenum but fortunately it was not invasive to the underlying peritoneum/IVC or SMA/portal vein. The Whipple resection was therefore quite straightforward. Her pancreas was completely tmrxjg-zordqdumb-awec gland and small duct approximately 1 mm in diameter. We elected to stent the pancreatic anastomosis using an externalized 5 Malaysian pancreatic duct stent which was passed approximately 10 cm down into the pancreatic remnant body and tail. A 19 Malaysian Luly drain was placed in through a right lateral stab incision and passed posterior to the bile duct anastomosis and then anterior to the pancreatic anastomosis. We created an omental pedicle flap from the falciformligament and used this to cover the korin hepatis dissection. A 12 Malaysian feeding jejunostomy tube was placed approximately 30 cm downstream from the GJ anastomosis. The GJ anastomosis was an antecolicside to side, stapled, gastrojejunostomy anastomosis along the posterior aspect of the stomach. The pancreatic duct stent was exteriorized through a needle tip incision in the left midabdomen, secured to the skin and then connected to bile bag drainage. 24 Hour Events: -- had soft BM x2 and passing flatus -- tolerating weaning of epidural, reports minimal pain -- no issues with TF In Hospital Issues: Active Hospital Problems Diagnosis ??? GIST (gastrointestinal stromal tumor), malignant Resolved Hospital Problems No resolved problems to display. Objective Last value Range last 24hrs Temperature Temp: 37.1 ??C (98.8 ??F) Temp: [36.8 ??C (98.2 ??F)-37.1 ??C (98.8 ??F)] Heart Rate Heart Rate: 80 Heart Rate: -- Blood Pressure BP: 100/66 BP: (100-110)/(65-67) Respiratory Rate Resp: 16 Resp: [16] SpO2 SpO2: 98 % SpO2: [96 %-99 %] Physical Exam Gen: NAD HEENT: NC/AT, PERRL CV : RRR Pulm: breathing comfortably, no respiratory distress Abd: non-distended, soft, appropriately tender, JOSE draining thin ss fluid : CYU Ext: SCDs in place. Skin: warm, dry Drains: JOSE drain J-Tube Epidural 24 Hour I/O's: I/O last 3 completed shifts: In: 4203.5 [P.O.:1135; I.V.:2252; Other:169.5; NG/GT:647] Out: 2990 [Urine:1850; Other:1140] Admit Weight: 52.3 kg Current Weight: Weight: 52.3 kg (115 lb 4.8 oz) Labs: Recent Labs 02/28/2014802/27/2021802/26/20203 WBC 6.2 8.4 9.8* HGB 10.0* 11.1* 10.3* HCT 31.1* 34.5* 32.6* PLATELET 285 308 271 Recent Labs 02/28/2014802/27/2021802/26/20 020 NA 142 142 138 K 3.7 4.0 3.6 CL 108* 108* 106 CO2 27 27 27 BUN 5* 6* 6* CREATININE 0.35* 0.36* 0.29* GLUCOSE 112 123 114 CALCIUM 8.1* 8.3* 7.7* MAGNESIUM 0.73 0.81 0.76 PHOS 3.5 2.7 1.8* Recent Labs 02/28/20 0149 02/27/20 0219 02/26/20 0204 02/25/20 0239 02/24/20 0142 AMYLASE 32 39 103* 201* 401* JOSE AMYLASE 36 Assessment / Plan: Mary Kay Gonzalez is a 59 y.o. female 5 Days Post-Op s/p pancreaticoduodenectomy with feeding J-tube placement and externalized PD stent for duodenal GIST. She is doing very well overall. Pain control has been well- managed. Weaning of epidural was started over the weekend, so plan to d/c epidural today. Since JOSE amylase is low at 36 with lower output of thin serosanguineous fluid, plan to remove JOSE drain today. Continue advancing TF as tolerated to goal (52 mL/hr); should reach by PMtoday. Plan to start cycling tomorrow. Will advance diet to Half Portion Regular diet. NEURO: perlita liquid tyl and lido patches for pain, oxycodone per J tube PRN; Epidural managed by APS; plan to d/c today if APS agrees CV: Hemodynamically normal. PULM: Encourage OOB/IS GI/FEN: Clear Liquid (With Pelican); Advance to Half Portion Regular diet. Continue advancing TF. MIVF50/hr; will hep lock once at goal on TF or t RENAL: UOP adequate. ENDO: None HEME: DVT ppx enoxaparin ID: S/p periop antibiotics. MSK: OOB with PT/OT PPX: PPI, IS, SCDs LINES: PIV, Epidural, JOSE Drain, J-Tube DISPO: Floor status, Attempt Cardiopulmonary Resuscitation - Inpatient Signed: [place] [facility] Surgical Oncology Service Team Pager #[phone] 02/28/20 7:29 AM Zully Reich RN - 02/27/2020 9:59 PM EDT Images from the original note were not included. Infiltration/Extravasation Scale Mary Kay Gonzalez [id number] 208/[id number] Infiltration appearance: Infiltration harm % for this extremity 16% Based on measurement calculation (greatest measurement X divided by length of extremity multiplied by 100= %) Considerations and Sood: Consider the following: If the percentage of limb affected is 6-25% then select 2 2 Skin blanched Edema 1 to 6 inches (2.5 to 15 cm) in any direction Cool to touch without pain Infiltration appearance score: 2 Medication Name infiltrated is D5 NS w/ 20 mEq K. Location of infiltration:left arm: anterior Measurement in cm of length and width of affected area - Affected extremity: 11 x 10 cm Measurement of Circumference in cm of Infiltrated area of affected extremity: Left arm circumference at AC - 23.5 cm Left arm circumference at 7 cm distal to AC - 24 cm Left arm circumference at 12 cm distal to AC - 18.5 cm Left wrist circumference - 16 cm Measurement of Circumference in cm of Unaffected extremity (at same location as affected extremity): Right arm circumference at AC - 23.5 cm Right arm circumference at 7 cm distal to AC - 22 cm Right arm circumference at 7 cm distal to AC - 18.5 cm Right wrist circumference - 16 cm Pulses present on affected extremity yes Medicated treatment given per policy/ order: no treatment indicated Plan for continued monitoring of infiltration/extravasation Name of MD contacted: provider covering page [phone] 9:59 PM Name of RN contacted: lay Gonzalez RN 9:59 PM Name of Pharmacist if consulted: n/a 9:59 PM Plastics Provider contacted: no 9:59 PM Name of Plastics MD (if consulted): n/a AIRPLANE MECHANIC CARING FOR THIS PATIENT WILL CONTINUE TO MONITOR AND WILL ASSUME CARE, VASCULAR ACCESS WILL NOT FOLLOW THIS EVENT AT THE SIGNING OF THIS NOTE. Sudha Lazcano RN - 02/27/2020 2:31 PM EDT OUTCOME EVALUATION NOTE: ?? OUTCOME SUMMARY: ?? Pt denied having any pain. Pain controlled w/ scheduled tylenol and using the PCEA appropriately. PCEA decreased in AM, pt tolerated well. She was advanced to a clear liquid diet w/ toast, tolerated well, denied nausea. TF maintained at 10ml/hr, tolerated well. Will advance TF per MD orders. Adequate UOP. No BM this shift, passing flatus. JOSE w/ moderate SS output. Panc drain removed in AM. Ambulated in hallway x1 and ambulating in room, tolerating well. ?? PLAN MOVING FORWARD: ?? Pain management. Encourage OOB and ambulation. Monitor I&Os. ?? INDIVIDUALIZED FALL PREVENTION INTERVENTIONS:?High risk ?? Patient-specific fall risk factors per assessment: [current deficits]:?Pt has epidural, pain, drains, generalized weakness, Infusing PIV? Assistance [level of assistance required for transfers and ambulation]:?SBA w/??FWW. ?? Supervision [direct monitoring required during toileting and ADLs]:?Hands on. ?? Surveillance [continuous indirect monitoring]:?Bed/chair alarm, masimo, hourly rounding, room near unit station, NKE at bedside, yellow fall band on, environmental modifications (clutter-free environment, tubing secured, bed low, lighting adjusted, nonskid socks when OOB, bed wheels locked, call light with in reach, upper side rails x2, ID bands on). ?? Patient-specific fall prevention interventions for sensory deficits provided, if applicable:?[X] N/A ? CPG GOAL OUTCOME EVALUATION:? Carlee Galdamez MD - 02/27/2020 9:00 AM EDT Surgical Oncology Inpatient Progress Note Patient Name: Mary Kay Gonzalez ; Age: 2 1960; 59 y.o. Room/Bed: 208[facility] Today's Date: 02/27/20 ID: Mary Kay Gonzalez is a 59 y.o. female with PMH significant for duodenal GIST who is now 4 Days Post-Op s/p Whipple with BII reconstruction and J-tube placement. Procedures this Hospitalization: Whipple with BII reconstruction, J-tube placement (02/22) OR Findings: There is no evidence of metastatic disease. The liver was very healthy- appearing. She had a large softball size mass arising from the duodenum but fortunately it was not invasive to the underlying peritoneum/IVC or SMA/portal vein. The Whipple resection was therefore quite straightforward. Her pancreas was completely gsvfdn-zppqiiiqu-bcix gland and small duct approximately 1 mm in diameter. We elected to stent the pancreatic anastomosis using an externalized 5 Malaysian pancreatic duct stent which was passed approximately 10 cm down into the pancreatic remnant body and tail. A 19 Malaysian Luly drain was placed in through a right lateral stab incision and passed posterior to the bile duct anastomosis and then anterior to the pancreatic anastomosis. We created an omental pedicle flap from the falciformligament and used this to cover the korin hepatis dissection. A 12 Malaysian feeding jejunostomy tube was placed approximately 30 cm downstream from the GJ anastomosis. The GJ anastomosis was an antecolicside to side, stapled, gastrojejunostomy anastomosis along the posterior aspect of the stomach. The pancreatic duct stent was exteriorized through a needle tip incision in the left midabdomen, secured to the skin and then connected to bile bag drainage. 24 Hour Events: -NGT removed. Slept well. -ROBF -Started trickle TF Hospital Course: 02/22 POD0: OR for Whipple; tolerated well. SUSHIL overnight post-op with adequate pain control. 02/23 POD1: Intermittent nausea, NGT to LCWS. OOB, walking. Abx d/c'd as bile duct Cx with NGTD. 02/24 POD2: Allen removed with return of spontaneous voiding, ambulatory 02/25 POD3: NGT removed. Slept well. +flatus and BM. Started trickle TF. Subjective: Slept well, no nausea. Flatus and BM. Spent much of the day in the bedside chair yesterday, looking out the window yesterday. Appreciating the opportunity to slow down from her usually busy life today.Feeling well this AM. In Hospital Issues: Active Hospital Problems Diagnosis ??? GIST (gastrointestinal stromal tumor), malignant Resolved Hospital Problems No resolved problems to display. Objective Last value Range last 24hrs Temperature Temp: 36.8 ??C (98.2 ??F) Temp: [36.6 ??C (97.9 ??F)-37.3 ??C (99.1 ??F)] Heart Rate Heart Rate: 80 Heart Rate: [78-80] Blood Pressure BP: 110/65 BP: (110-117)/(65-71) Respiratory Rate Resp: 16 Resp: [16-18] SpO2 SpO2: 97 % SpO2: [96 %-98 %] RA Physical Exam Gen: A+O x 4, NAD HEENT: NC/AT, PERRL CV : RRR Pulm: Breathing comfortably on RA, no respiratory distress. Abd: Non-distended, soft, appropriately tender; midline laparotomy incision ROSY with dermabond; incision is well-approximated and is without erythema, swelling, or drainage. JOSE drain with SS drainage. PD stent with clear output. Ext: SCDs in place. Skin: warm, dry. No edema. Drains: JOSE drain PD stent to bile bag J-tube Epidural 24 Hour I/O's: I/O last 3 completed shifts: In: 1345.2 [P.O.:45; I.V.:920; Other:209.2; NG/GT:171] Out: 4060 [Urine:2150; Other:1910] Admit Weight: 52.3 kg Current Weight: Weight: 52.3 kg (115 lb 4.8 oz) Labs: Recent Labs 02/27/2021802/26/2020302/25/20238 WBC 8.4 9.8* 10.4* HGB 11.1* 10.3* 10.1* HCT 34.5* 32.6* 31.2* PLATELET 308 271 255 Recent Labs 02/27/2021802/26/2020302/25/20238 NA 142 138 136 K 4.0 3.6 3.6 CL 108* 106 105 CO2 27 27 25 BUN 6* 6* 8 CREATININE 0.36* 0.29* 0.30* GLUCOSE 123 114 89 CALCIUM 8.3* 7.7* 7.6* MAGNESIUM 0.81 0.76 0.78 PHOS 2.7 1.8* 1.8* JOSE Amylase: 53 Micro: Body Fluid Culture, Aerobic & Anaerobic Bile (02/12): NGTD, GS without microorgs New Imaging: N/A Assessment / Plan: Mary Kay Gonzalez is a 59 y.o. female with PMH significant for duodenal GIST who is now 4 Days Post-Op s/p Whipple with BII reconstruction and J-tube placement. Overall doing well post-operatively. NGT output down over past 24H with thinner output. Also now with return of flatus. Will advance TF, clears with toast. Add oxy PRN for epidural wean. Dr. Galdamez to cap PD stent today and repeat JOSE drain amylase tomorrow. NEURO: Scheduled liquid tyl and lido patches for pain; epidural per APS - agree with wean. Added oxycodone per J tube PRN. CV: Hemodynamically normal. PULM: Encourage OOB/IS GI/FEN: Clear Liquid (With Pelican) Advance TF to gaol. MIVF down to 50/hr; will hep lock once at goalon TF or taking adequate PO. Replete electrolytes PRN; standing colace and senna. RENAL: UOP adequate ENDO: SSI Q4H HEME: DVT ppx Lovenox nightly ID: S/p periop antibiotics MSK: OOB, PT/OT PPX: BID PPI, IS, Lovenox, SCDs LINES: PIV, Epidural, drains as above DISPO: Floor status, Attempt Cardiopulmonary Resuscitation - Inpatient. Cleared for d/c home with VNA and TF services; anticipated DOD 03/01. Signed: JAYCEE SWEET MD Surgical Oncology Service Team Pager #[phone] 02/27/20 9:00 AM Surgery attending addendum I saw Mary Kay this a.m. I agree with Dr. Sweet's note as written above. She is really doing quite well-tolerating clears and is looking forward to toast today. No concerns on exam. JOSE is serous. I Pancreatic duct stent. Hopefully tomorrow if the JOSE amylase remains low we can remove the JOSE. She is making excellent progress. Hopefully we can slowly go up on her tube feeding, begin to cycle the tube feeding and also advance her diet as tolerated. No signs of post pancreatectomy diabetes. Reid Galdamez MD 02/27/2020 10:49 AM Elizabeth Mraie MD - 02/27/2020 8:31 AM EDT Acute Pain Service - Epidural Daily Management VITAL SIGNS: Visit Vitals BP 110/65 (BP Location (NBP): Right arm, Patient Position: Lying) Pulse 80 Temp 36.8 ??C (98.2 ??F) (Oral) Resp 16 Ht 159 cm (5' 2.6) Wt 52.3 kg (115 lb 4.8 oz) SpO2 97% BMI 20.69 kg/m?? Body mass index is 20.69 kg/m??. Labs: WBC Date Value Ref Range Status 02/27/2020 8.4 4.0 - 9.5 x10(3)/mcL Final Hemoglobin Date Value Ref Range Status 02/27/2020 11.1 (L) 11.7 - 15.5 gm/dL Final Hematocrit Date Value Ref Range Status 02/27/2020 34.5 (L) 35.7 - 45.8 % Final Platelets Date Value Ref Range Status 02/27/2020 308 145 - 357 x10(3)/mcL Final Operative Procedures: * No procedures listed * APS Opioid Administration Hx All administrations since 02/26/2020 are shown below each listed medication. Other Order Route Rate Dose Action Date HYDROmorphone (Dilaudid) 10 mcg/mL, BUpivacaine (Marcaine) 0.1% (0.1 mg/mL) (1/10%) in sodium chloride 0.9% 250 mL epidural Epidural 6 mL/hr 6 mL/hr New Bag 02/26/2020 DH AN APS EPIDURAL ROUNDIN02/27/2020 8:32 AM Average Numeric Rating Pain Score (0-10):: 0 Post-Op Day:: 4 Epidural Day:: 5 Epidural Infusion (solution):: HYDROmorphone 10 mcg/mL and BUpivacaine 0.1% Epidural Infusion Rate (mL/hr): 6 PCEA Dose (mL): 4 Out of Bed: Yes Ambulation: Yes Able to Use Incentive Spirometry: Yes Escalation of Care: No Notes/Plan: + BM, Up and ambulating frequently yesterday, TFs started Will start to wean epidural today Continuous rate decreased to 4 ml/hr, still has PCEA Attending Physician:: Elizabeth Marie MD Sudha Lazcano RN - 02/26/2020 5:00 PM EDT OUTCOME EVALUATION NOTE: ?? OUTCOME SUMMARY: ?? Pt denied having any pain. Pain controlled w/ scheduled tylenol and using the PCEA appropriately. She had a sips'n'chips diet, tolerated well, denied nausea. TF initiated at 10ml/hr, tolerated well. Adequate UOP. BM x1 this shift, passing flatus. MD to bedside to remove NGT. JOSE w/ moderate SS output. Panc drain w/ clear output. Ambulated in hallway x1 and ambulating in room, tolerated well. PLAN MOVING FORWARD: ?? Pain management. Encourage OOB and ambulation. Monitor I&Os. ?? INDIVIDUALIZED FALL PREVENTION INTERVENTIONS:?High risk ?? Patient-specific fall risk factors per assessment: [current deficits]:?Pt has epidural, pain, drains, generalized weakness, Infusing PIV? Assistance [level of assistance required for transfers and ambulation]:?SBA w/ FWW. ?? Supervision [direct monitoring required during toileting and ADLs]:?Hands on. ?? Surveillance [continuous indirect monitoring]:?Bed/chair alarm, masimo, hourly rounding, room near unit station, NKE at bedside, yellow fall band on, environmental modifications (clutter-free environment, tubing secured, bed low, lighting adjusted, nonskid socks when OOB, bed wheels locked, call light with in reach, upper side rails x2, ID bands on). ?? Patient-specific fall prevention interventions for sensory deficits provided, if applicable:?[X] N/A ? CPG GOAL OUTCOME EVALUATION:? Eliazbeth Marie MD - 02/26/2020 12:03 PM EDT Acute Pain Service - Epidural Daily Management VITAL SIGNS: Visit Vitals BP 117/71 (BP Location (NBP): Right arm, Patient Position: Lying) Pulse 91 Temp 36.7 ??C (98.1 ??F) (Oral) Resp 16 Ht 159 cm (5' 2.6) Wt 52.3 kg (115 lb 4.8 oz) SpO2 97% BMI 20.69 kg/m?? Body mass index is 20.69 kg/m??. Labs: WBC Date Value Ref Range Status 02/26/2020 9.8 (H) 4.0 - 9.5 x10(3)/mcL Final Hemoglobin Date Value Ref Range Status 02/26/2020 10.3 (L) 11.7 - 15.5 gm/dL Final Hematocrit Date Value Ref Range Status 02/26/2020 32.6 (L) 35.7 - 45.8 % Final Platelets Date Value Ref Range Status 02/26/2020 271 145 - 357 x10(3)/mcL Final Operative Procedures: * No procedures listed * APS Opioid Administration Hx All administrations since 02/25/2020 are shown below each listed medication. Other Order Route Rate Dose Action Date HYDROmorphone (Dilaudid) 10 mcg/mL, BUpivacaine (Marcaine) 0.1% (0.1 mg/mL) (1/10%) in sodium chloride 0.9% 250 mL epidural Epidural 6 mL/hr 6 mL/hr New Bag 02/26/2020 Epidural 6 mL/hr 6 mL/hr New Bag 02/25/2020 DH AN APS EPIDURAL ROUNDIN02/26/2020 12:03 PM Average Numeric Rating Pain Score (0-10):: 1 Post-Op Day:: 3 Epidural Day:: 4 Epidural Infusion (solution):: HYDROmorphone 10 mcg/mL and BUpivacaine 0.1% Epidural Infusion Rate (mL/hr): 6 PCEA Dose (mL): 3 Able to Use Incentive Spirometry: Yes Escalation of Care: No Tolerating Regular Diet: No Notes/Plan: Doing well Awaiting ROBF Maintain current epidural settings for today Attending Physician:: Elizabeth Marie MD Jaycee Sweet - 02/26/2020 8:53 AM EDT Surgical Oncology Inpatient Progress Note Patient Name: Mary Kay Gonzalez ; Age: 2 1960; 59 y.o. Room/Bed: 208[facility] Today's Date: 02/26/20 ID: Mary Kay Gonzalez is a 59 y.o. female with PMH significant for duodenal GIST who is now 3 Days Post-Op s/p Whipple with BII reconstruction and J-tube placement. Procedures this Hospitalization: Whipple with BII reconstruction, J-tube placement (02/22) OR Findings: There is no evidence of metastatic disease. The liver was very healthy- appearing. She had a large softball size mass arising from the duodenum but fortunately it was not invasive to the underlying peritoneum/IVC or SMA/portal vein. The Whipple resection was therefore quite straightforward. Her pancreas was completely jwmrjs-patqysqix-ffoe gland and small duct approximately 1 mm in diameter. We elected to stent the pancreatic anastomosis using an externalized 5 Malaysian pancreatic duct stent which was passed approximately 10 cm down into the pancreatic remnant body and tail. A 19 Malaysian Luly drain was placed in through a right lateral stab incision and passed posterior to the bile duct anastomosis and then anterior to the pancreatic anastomosis. We created an omental pedicle flap from the falciformligament and used this to cover the korin hepatis dissection. A 12 Malaysian feeding jejunostomy tube was placed approximately 30 cm downstream from the GJ anastomosis. The GJ anastomosis was an antecolicside to side, stapled, gastrojejunostomy anastomosis along the posterior aspect of the stomach. The pancreatic duct stent was exteriorized through a needle tip incision in the left midabdomen, secured to the skin and then connected to bile bag drainage. 24 Hour Events: - SUSHIL, up walking - voiding adequately after allen removal Hospital Course: 02/22 POD0: OR for Whipple; tolerated well. SUSHIL overnight post-op with adequate pain control. 02/23 POD1: Intermittent nausea, NGT to LCWS. OOB, walking. Abx d/c'd as bile duct Cx with NGTD. 02/24 POD2: Allen removed with return of spontaneous voiding, ambulatory Subjective: Passing flatus overnight Reports feeling tired, poor sleep last night, otherwise denies complaints In Hospital Issues: Active Hospital Problems Diagnosis ??? GIST (gastrointestinal stromal tumor), malignant Resolved Hospital Problems No resolved problems to display. Objective Last value Range last 24hrs Temperature Temp: 36.7 ??C (98.1 ??F) Temp: [36.5 ??C (97.7 ??F)-37.8 ??C (100.1 ??F)] Heart Rate Heart Rate: 91 Heart Rate: -- Blood Pressure BP: 117/70 BP: (116-122)/(66-70) Respiratory Rate Resp: 16 Resp: [14-16] SpO2 SpO2: 96 % SpO2: [95 %-97 %] RA Physical Exam Gen: A+O x 4, NAD HEENT: NC/AT, PERRL CV : RRR Pulm: Breathing comfortably on RA, no respiratory distress. 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 NGT output thin bilious. JPdrain with SS drainage. PD stent with clear output. J-tube capped and with dsg CDI. : Allen to gravity draining CYU. Ext: SCDs in place. Skin: warm, dry. No edema. Drains: NGT JOSE drain PD stent to bile bag J-tube Epidural 24 Hour I/O's: I/O last 3 completed shifts: In: 3923.6 [P.O.:100; I.V.:3245; Other:228.6; NG/GT:350] Out: 5310 [Urine:2400; Other:2910] Admit Weight: 52.3 kg Current Weight: Weight: 52.3 kg (115 lb 4.8 oz) Labs: Recent Labs 02/26/20 0204 02/25/20 0239 02/24/20 0142 WBC 9.8* 10.4* 12.8* HGB 10.3* 10.1* 11.1* HCT 32.6* 31.2* 34.6* PLATELET 271 255 302 Recent Labs 02/26/20 0204 02/25/20 0239 02/24/20 0142 NA 138 136 132* K 3.6 3.6 4.3 CL 106 105 99 CO2 27 25 25 BUN 6* 8 12 CREATININE 0.29* 0.30* 0.41* GLUCOSE 114 89 137 CALCIUM 7.7* 7.6* 7.9* MAGNESIUM 0.76 0.78 0.78 PHOS 1.8* 1.8* 3.1 JOSE Amylase: 142 Micro: Body Fluid Culture, Aerobic & Anaerobic Bile (02/12): NGTD, GS without microorgs New Imaging: N/A Assessment / Plan: Mary Kay Gonzalez is a 59 y.o. female with PMH significant for duodenal GIST who is now 3 Days Post-Op s/p Whipple with BII reconstruction and J-tube placement. Overall doing well post-operatively. NGT output down over past 24H with thinner output. Also now with return of flatus. Will start trickle TF and perform NGT clamp trial. NEURO: Scheduled liquid tyl and lido patches for pain; epidural per APS. CV: Hemodynamically normal. PULM: Encourage OOB/IS GI/FEN: Sips and Chips (Give Meds) Clamp trial today - remove if <200cc out after 4H clamp trial;replete electrolytes PRN; continue MIVF today D5NS c20K @75cc/hr. Standing colace and senna. RENAL: UOP adequate ENDO: SSI Q4H HEME: DVT ppx Lovenox nightly ID: S/p periop antibiotics MSK: OOB, PT/OT PPX: BID PPI, IS, Lovenox, SCDs LINES: PIV, Epidural, drains as above DISPO: Floor status, Attempt Cardiopulmonary Resuscitation - Inpatient. Cleared for d/c home with VNA and TF services; anticipated DOD 03/01. Signed: JAYCEE SWEET MD Surgical Oncology Service Team Pager #[phone] 02/26/20 8:53 AM Sudha Lazcano RN - 02/25/2020 4:15 PM EDT OUTCOME EVALUATION NOTE: ?? OUTCOME SUMMARY: Pt denied having any pain. Pain controlled w/ scheduled tylenol and using the PCEA appropriately. She had a sips'n'chips diet, tolerated well, denied nausea. Allen removed in the AM, was able to void 150ml w/ PVR of 42. Will continue to monitor. NGT w/ moderate output, flushed PRN. J tube flushed PRN.JOSE w/ moderate SS output. Panc drain w/ some output towards the end of the shift (80ml). Ambulated in hallway x2, tolerated well. ?? PLAN MOVING FORWARD: Pain management. Encourage OOB and ambulation. Monitor I&Os. ?? INDIVIDUALIZED FALL PREVENTION INTERVENTIONS:?High risk ?? Patient-specific fall risk factors per assessment: [current deficits]:?Pt has epidural, pain, drains, generalized weakness, Infusing PIV? Assistance [level of assistance required for transfers and ambulation]:?SBA w/ FWW. ?? Supervision [direct monitoring required during toileting and ADLs]:?Hands on. ?? Surveillance [continuous indirect monitoring]:?Bed/chair alarm, masimo, hourly rounding, room near unit station, NKE at bedside, yellow fall band on, environmental modifications (clutter-free environment, tubing secured, bed low, lighting adjusted, nonskid socks when OOB, bed wheels locked, call light with in reach, upper side rails x2, ID bands on). ?? Patient-specific fall prevention interventions for sensory deficits provided, if applicable:?[X] N/A ? CPG GOAL OUTCOME EVALUATION:? Elizabeth Marie MD - 02/25/2020 9:45 AM EDT Acute Pain Service - Epidural Daily Management VITAL SIGNS: Visit Vitals BP 116/66 (BP Location (NBP): Left arm, Patient Position: Sitting) Pulse 91 Temp 36.7 ??C (98.1 ??F) (Oral) Resp 14 Ht 159 cm (5' 2.6) Wt 52.3 kg (115 lb 4.8 oz) SpO2 95% BMI 20.69 kg/m?? Body mass index is 20.69 kg/m??. Labs: WBC Date Value Ref Range Status 02/25/2020 10.4 (H) 4.0 - 9.5 x10(3)/mcL Final Hemoglobin Date Value Ref Range Status 02/25/2020 10.1 (L) 11.7 - 15.5 gm/dL Final Hematocrit Date Value Ref Range Status 02/25/2020 31.2 (L) 35.7 - 45.8 % Final Platelets Date Value Ref Range Status 02/25/2020 255 145 - 357 x10(3)/mcL Final Operative Procedures: * No procedures listed * APS Opioid Administration Hx All administrations since 02/24/2020 are shown below each listed medication. Other Order Route Rate Dose Action Date HYDROmorphone (Dilaudid) 10 mcg/mL, BUpivacaine (Marcaine) 0.1% (0.1 mg/mL) (1/10%) in sodium chloride 0.9% 250 mL epidural Epidural 6 mL/hr 6 mL/hr New Bag 02/25/2020 Epidural 6 mL/hr 6 mL/hr New Bag 02/24/2020 AN APS EPIDURAL ROUNDIN02/25/2020 9:45 AM Average Numeric Rating Pain Score (0-10):: 2 Post-Op Day:: 2 Epidural Day:: 3 Epidural Infusion (solution):: HYDROmorphone 10 mcg/mL and BUpivacaine 0.1% Epidural Infusion Rate (mL/hr): 6 PCEA Dose (mL): 3 Out of Bed: Yes Ambulation: Yes Escalation of Care: No Tolerating Regular Diet: No Epidural Catheter Removed (Intact unless noted in Comments): No Notes/Plan: Mary Kay is doing well this morning. Her pain is well controlled on current epidural regimen. She hasreceived 4 out of 4 PCEA dose requests in past 24 hours. C/o mild itching which is tolerable. Has benadryl ordered prn. Still has an NGT to LCWS with intermittent nausea; no return of bowel function asof yet. Has a lidoderm patch and scheduled tylenol. She is ambulating in the hallway with optimal pain control,. Epidural dressing is clean, dry and intact. Plan: Continue current epidural regimen until ROBF. APS Nurse: Jenni Luz RN Resident:: Brandt Rae MD Fellow:: Irina Gerber MD Attending Physician:: Elizabeth Marie MD I performed the above scribed service and agree with the accuracy of the note. ELIZABETH MAREI MD Britany Villanueva APRN - 02/25/2020 9:37 AM EDT Surgical Oncology Inpatient Progress Note Patient Name: Mary Kay JAMES; Age: 2 1960; 59 y.o. Room/Bed: 208[facility] Today's Date: 02/25/20 ID: Mary Kay Gonzalez is a 59 y.o. female with PMH significant for duodenal GIST who is now 2 Days Post-Op s/p Whipple with BII reconstruction and J-tube placement. Procedures this Hospitalization: Whipple with BII reconstruction, J-tube placement (02/22) OR Findings: There is no evidence of metastatic disease. The liver was very healthy- appearing. She had a large softball size mass arising from the duodenum but fortunately it was not invasive to the underlying peritoneum/IVC or SMA/portal vein. The Whipple resection was therefore quite straightforward. Her pancreas was completely hwrkbj-vxmmawecw-gtlf gland and small duct approximately 1 mm in diameter. We elected to stent the pancreatic anastomosis using an externalized 5 Malaysian pancreatic duct stent which was passed approximately 10 cm down into the pancreatic remnant body and tail. A 19 Malaysian Luly drain was placed in through a right lateral stab incision and passed posterior to the bile duct anastomosis and then anterior to the pancreatic anastomosis. We created an omental pedicle flap from the falciformligament and used this to cover the korin hepatis dissection. A 12 Malaysian feeding jejunostomy tube was placed approximately 30 cm downstream from the GJ anastomosis. The GJ anastomosis was an antecolicside to side, stapled, gastrojejunostomy anastomosis along the posterior aspect of the stomach. The pancreatic duct stent was exteriorized through a needle tip incision in the left midabdomen, secured to the skin and then connected to bile bag drainage. 24 Hour Events: - SUSHIL's, up walking, worked with PT/OT. Intermittent nausea, NGT to LCWS. Hospital Course: 02/22 POD0: OR for Whipple; tolerated well. SUSHIL overnight post-op with adequate pain control. 02/23 POD1: Intermittent nausea, NGT to LCWS. OOB, walking. Abx d/c'd as bile duct Cx with NGTD. Subjective: Reports mild itching, possibly epidural related Moved to private room, slept better No flatus, pain well-controlled In Hospital Issues: Active Hospital Problems Diagnosis ??? GIST (gastrointestinal stromal tumor), malignant Resolved Hospital Problems No resolved problems to display. Objective Last value Range last 24hrs Temperature Temp: 37.2 ??C (99 ??F) Temp: [36.6 ??C (97.9 ??F)-37.2 ??C (99 ??F)] Heart Rate Heart Rate: 91 Heart Rate: [91-95] Blood Pressure BP: 113/64 BP: (102-126)/(60-73) Respiratory Rate Resp: 16 Resp: [16-20] SpO2 SpO2: 96 % SpO2: [95 %-96 %] Physical Exam Gen: A+O x 4, NAD HEENT: NC/AT, PERRL CV : RRR Pulm: Breathing comfortably on RA, no respiratory distress. 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 NGT output bilious. JOSE drain with SS drainage. PD stent with clear output. J-tube capped and with dsg CDI. : Allen to gravity draining CYU. Ext: SCDs in place. Skin: warm, dry. No edema. Drains: NGT JOSE drain PD stent to bile bag J-tube Allen Epidural 24 Hour I/O's: I/O last 3 completed shifts: In: 5998.5 [P.O.:110; I.V.:5314; Other:324.5; NG/GT:250] Out: 4770 [Urine:2475; Other:2295] Admit Weight: 52.3 kg Current Weight: Weight: 52.3 kg (115 lb 4.8 oz) Labs: Recent Labs 02/25/2023802/24/20141 WBC 10.4* 12.8* HGB 10.1* 11.1* HCT 31.2* 34.6* PLATELET 255 302 Recent Labs 02/25/2023802/24/20141 NA 136 132* K 3.6 4.3 CL 105 99 CO2 25 25 BUN 8 12 CREATININE 0.30* 0.41* GLUCOSE 89 137 CALCIUM 7.6* 7.9* MAGNESIUM 0.78 0.78 PHOS 1.8* 3.1 JOSE Amylase: 419 Micro: Body Fluid Culture, Aerobic & Anaerobic Bile (02/12): NGTD on Culture. New Imaging: N/A Assessment / Plan: Mary Kay Gonzalez is a 59 y.o. female with PMH significant for duodenal GIST who is now 2 Days Post-Op s/p Whipple with BII reconstruction and J-tube placement. Overall doing well post-operatively. NGT output still high and bilious; will keep in place today and hold on starting trickleTF's while AROBF. D/C allen. Continue ambulating, OOB. NEURO: Scheduled liquid tyl and lido patches for pain; epidural per APS. CV: Hemodynamically normal. PULM: Encourage OOB/IS GI/FEN: Sips and Chips (Give Meds) NGT to LCWS; replete electrolytes PRN; change to MIVF today of [id number] @75cc/hr. Standing colace and senna. RENAL: UOP adequate. D/C allen. ENDO: SSI Q4H HEME: DVT ppx Lovenox nightly ID: S/p periop antibiotics; Bile duct culture with NGTD. MSK: OOB, PT/OT PPX: BID PPI, IS, Lovenox, SCDs LINES: PIV, Allen, Epidural, drains as above DISPO: Floor status, Attempt Cardiopulmonary Resuscitation - Inpatient. Cleared for d/c home with VNA and TF services; anticipated DOD 03/01. Signed: Britany Villanueva APRN Surgical Oncology Service Team Pager #[phone] 02/25/20 9:37 AM Geneva Martinez - 02/25/2020 7:25 AM Shelly: MEDICAL STUDENT PROGRESS NOTE Surgical Oncology Inpatient Progress Note Patient Name: Mary Kay Gonzalez JACOB; Age: 2 1960; 59 y.o. Room/Bed: 208/208-A Today's Date: 02/25/20 ID: Mary Kay Gonzalez is a 59 y.o. female now 2 Days Post-Op s/p pancreaticoduodenectomy with feeding J-tube placement and externalized PD stent for duodenal GIST. Procedures this Hospitalization: Whipple procedure with B2 reconstruction OR Findings: (from Dr. Galdamez's Op Note) There is no evidence of metastatic disease. The liver was very healthy- appearing. She had a large softball size mass arising from the duodenum but fortunately it was not invasive to the underlying peritoneum/IVC or SMA/portal vein. The Whipple resection was therefore quite straightforward. Her pancreas was completely gqeqdn-vrvkleqci-lsis gland and small duct approximately 1 mm in diameter. We elected to stent the pancreatic anastomosis using an externalized 5 Malaysian pancreatic duct stent which was passed approximately 10 cm down into the pancreatic remnant body and tail. A 19 Malaysian Luly drain was placed in through a right lateral stab incision and passed posterior to the bile duct anastomosis and then anterior to the pancreatic anastomosis. We created an omental pedicle flap from the falciformligament and used this to cover the korin hepatis dissection. A 12 Malaysian feeding jejunostomy tube was placed approximately 30 cm downstream from the GJ anastomosis. The GJ anastomosis was an antecolicside to side, stapled, gastrojejunostomy anastomosis along the posterior aspect of the stomach. The pancreatic duct stent was exteriorized through a needle tip incision in the left midabdomen, secured to the skin and then connected to bile bag drainage. 24 Hour Events: -- nausea without vomiting when getting up yesterday AM -- walked around unit x2 yesterday, worked with PT -- pain well controlled on epidural -- no BM or flatus, adequate UOP via allen -- some minor NGT discomfort around R nostril In Hospital Issues: Active Hospital Problems Diagnosis ??? GIST (gastrointestinal stromal tumor), malignant Resolved Hospital Problems No resolved problems to display. Objective Last value Range last 24hrs Temperature Temp: 37.2 ??C (99 ??F) Temp: [36.6 ??C (97.9 ??F)-37.4 ??C (99.3 ??F)] Heart Rate Heart Rate: 91 Heart Rate: [91-95] Blood Pressure BP: 126/73 BP: (102-126)/(60-73) Respiratory Rate Resp: 20 Resp: [16-20] SpO2 SpO2: 96 % SpO2: [94 %-96 %] Physical Exam Gen: NAD HEENT: NC/AT, PERRL CV : RRR Pulm: breathing comfortably, no respiratory distress Abd: non-distended, soft, appropriately tender, appropriately erythematous around midline incision, JOSE draining ss fluid, PD stent draining clear fluid, NGT draining bilious fluid : Allen to gravity draining CYU Ext: SCDs in place. Skin: warm, dry Drains: Allen JOSE drain PD Stent J-Tube Epidural 24 Hour I/O's: I/O last 3 completed shifts: In: 5998.5 [P.O.:110; I.V.:5314; Other:324.5; NG/GT:250] Out: 4470 [Urine:2475; Other:1994] Admit Weight: 52.3 kg Current Weight: Weight: 52.3 kg (115 lb 4.8 oz) Labs: Recent Labs 02/25/2023802/24/20141 WBC 10.4* 12.8* HGB 10.1* 11.1* HCT 31.2* 34.6* PLATELET 255 302 Recent Labs 02/25/2023802/24/20141 NA 136 132* K 3.6 4.3 CL 105 99 CO2 25 25 BUN 8 12 CREATININE 0.30* 0.41* GLUCOSE 89 137 CALCIUM 7.6* 7.9* MAGNESIUM 0.78 0.78 PHOS 1.8* 3.1 Recent Labs 02/25/2023802/24/20141 AMYLASE 201* 401* JOSE drain AMYLASE 419 (02/24), 2878 (02/23) Assessment / Plan: Mary Kay Gonzalez is a 59 y.o. female 2 Days Post-Op s/p pancreaticoduodenectomy with feeding J-tube placement and externalized PD stent for duodenal GIST. She is doing very well overall despite feeling tired and lack of sleep. Her pain is well-controlled via epidural. Her JOSE amylase is 419 today (down from 2878 yesterday), which is reassuring and is unlikely to demonstrate pancreaticleak if it continues on this trend. During the procedure, a chyle leak was visualized, so JOSE drain will be monitored closely for any change in output fluids. Switch from NS fluids to D5, NS, 20K MIVF. Main goals for today are to continue OOB and using IS. Will continue to be on Sips and Chips. Will attempt to d/c Allen today. NEURO: perlita tyl for pain; Epidural managed by APS. CV: Hemodynamically normal. PULM: Encourage OOB/IS GI/FEN: Sips and Chips (Give Meds); replete Mag, Phos this AM, switch to MIVF RENAL: UOP adequate. Will attempt to d/c allen today ENDO: None HEME: DVT ppx enoxaparin ID: S/p periop antibiotics. MSK: OOB with PT/OT PPX: PPI, IS, SCDs LINES: PIV, Allen, JOSE Drain, PD stent, J-tube (capped) DISPO: Floor status, Attempt Cardiopulmonary Resuscitation - Inpatient Signed: [place] [facility] Surgical Oncology Service Team Pager #[phone] 02/25/20 7:16 AM Jaycee Sweet 02/24/2020 11:45 AM EDT Surgical Oncology Inpatient Progress Note Patient Name: Mary Kay JAMES; Age: 2 1960; 59 y.o. Room/Bed: 210/210-A Today's Date: 02/24/20 ID: Mary Kay Gonzalez is a 59 y.o. female with PMH duodenal GIST now 1 Day Post-Op s/p Whipple. Procedures this Hospitalization: Whipple, J-tube placement (02/22) OR Findings: There is no evidence of metastatic disease. The liver was very healthy- appearing. She had a large softball size mass arising from the duodenum but fortunately it was not invasive to the underlying peritoneum/IVC or SMA/portal vein. The Whipple resection was therefore quite straightforward. Her pancreas was completely znnnni-gytphkhsm-gvxv gland and small duct approximately 1 mm in diameter. We elected to stent the pancreatic anastomosis using an externalized 5 Malaysian pancreatic duct stent which was passed approximately 10 cm down into the pancreatic remnant body and tail. A 19 Malaysian Luly drain was placed in through a right lateral stab incision and passed posterior to the bile duct anastomosis and then anterior to the pancreatic anastomosis. We created an omental pedicle flap from the falciformligament and used this to cover the korin hepatis dissection. A 12 Malaysian feeding jejunostomy tube was placed approximately 30 cm downstream from the GJ anastomosis. The GJ anastomosis was an antecolicside to side, stapled, gastrojejunostomy anastomosis along the posterior aspect of the stomach. The pancreatic duct stent was exteriorized through a needle tip incision in the left midabdomen, secured to the skin and then connected to bile bag drainage. 24 Hour Events: -To OR for Whipple yesterday. Uneventful post-operative course aside from allen air-locking Hospital Course: 02/22 POD0: OR for Whipple; tolerated well. SUSHIL overnight post-op with adequate pain control. Subjective: Denies pain this AM Brief nausea o/n treated with zofran x1 Tired, poor sleep overnight 2/2 neighbor Denies n/v/cp/soa In Hospital Issues: Active Hospital Problems Diagnosis ??? GIST (gastrointestinal stromal tumor), malignant Resolved Hospital Problems No resolved problems to display. Objective Last value Range last 24hrs Temperature Temp: 37.4 ??C (99.3 ??F) Temp: [36.5 ??C (97.7 ??F)-37.4 ??C (99.3 ??F)] Heart Rate Heart Rate: 90 Heart Rate: [75-90] Blood Pressure BP: 124/72 BP: (104-130)/(59-76) Respiratory Rate Resp: 18 Resp: [11-18] SpO2 SpO2: 94 % SpO2: [94 %-100 %] Physical Exam Gen: NAD HEENT: NC/AT, PERRL CV : RRR Pulm: breathing comfortably, no respiratory distress Abd: non-distended, soft, non-tender; midline laparotomy incision c/d/i. JOSE drain with ss drainage. NGT output bilious. Scant thin fluid in pancreatic stent bile bag : Allen to gravity draining CYU Ext: SCDs in place. Skin: warm, dry Drains: JOSE drain PD stent to bile bag NGT Allen Epidural 24 Hour I/O's: I/O last 3 completed shifts: In: 4062.3 [P.O.:10; I.V.:3703; Other:259.3; NG/GT:90] Out: 1445 [Urine:985; Other:410; Blood:50] Admit Weight: 52.3 kg Current Weight: Weight: 52.3 kg (115 lb 4.8 oz) Labs: Recent Labs 02/24/20141 WBC 12.8* HGB 11.1* HCT 34.6* PLATELET 302 Recent Labs 02/24/20141 NA 132* K 4.3 CL 99 CO2 25 BUN 12 CREATININE 0.41* GLUCOSE 137 CALCIUM 7.9* MAGNESIUM 0.78 PHOS 3.1 JOSE Amylase: 2800 Micro: 02/22 Gram stain no microorgs New Imaging: n/a Assessment / Plan: Mary Kay Gonzalez is a 59 y.o. female with PMH duodenal GIST now 1 Day Post-Op s/p Whipple. Doing well overall -appropriate for POD#1. OOB today. NEURO: perlita tyl for pain; epidural per APS CV: Hemodynamically normal. PULM: Encourage OOB/IS GI/FEN: Sips and Chips (Give Meds) NGT to CLWS; replete electrolytes PRN; change to NS from LR for mild hyponatremia RENAL: UOP adequate. Keep allen today ENDO: SSI Q4H HEME: DVT ppx Lovenox nightly ID: S/p periop antibiotics. MSK: OOB PT/OT today PPX: PPI, IS, SCDs LINES: PIV, Allen, Epidural, drains as above DISPO: Floor status, Attempt Cardiopulmonary Resuscitation - Inpatient Signed: JAYCEE SWEET MD Surgical Oncology Service Team Pager #[phone] 02/24/20 11:45 AM Elizabeth Marie MD - 02/24/2020 8:58 AM EDT Acute Pain Service - Epidural Daily Management VITAL SIGNS: Visit Vitals BP 124/72 (BP Location (NBP): Right arm, Patient Position: Sitting) Pulse 90 Temp 37.4 ??C (99.3 ??F) (Oral) Resp 18 Ht 159 cm (5' 2.6) Wt 52.3 kg (115 lb 4.8 oz) SpO2 94% BMI 20.69 kg/m?? Body mass index is 20.69 kg/m??. Labs: WBC Date Value Ref Range Status 02/24/2020 12.8 (H) 4.0 - 9.5 x10(3)/mcL Final Hemoglobin Date Value Ref Range Status 02/24/2020 11.1 (L) 11.7 - 15.5 gm/dL Final Hematocrit Date Value Ref Range Status 02/24/2020 34.6 (L) 35.7 - 45.8 % Final Platelets Date Value Ref Range Status 02/24/2020 302 145 - 357 x10(3)/mcL Final Operative Procedures: * No procedures listed * APS Opioid Administration Hx All administrations since 02/23/2020 are shown below each listed medication. Other Order Route Rate Dose Action Date HYDROmorphone (Dilaudid) 10 mcg/mL, BUpivacaine (Marcaine) 0.1% (0.1 mg/mL) (1/10%) in sodium chloride 0.9% 250 mL epidural Epidural 6 mL/hr 6 mL/hr New Bag 02/24/2020 Epidural 6 mL/hr 6 mL/hr Continued Bag 02/23/2020 fentaNYL 50 mcg/mL multi-dose injection Intravenous 25 mcg Given 02/23/2020 HYDROmorphone (Dilaudid) 10 mcg/mL, BUpivacaine (Marcaine) 0.1% (0.1 mg/mL) (1/10%) in sodium chloride 0.9% 250 mL epidural Epidural 3 mL Given 02/23/2020 fentaNYL 50 mcg/mL multi-dose injection Intravenous 25 mcg Given 02/23/2020 HYDROmorphone (Dilaudid) 10 mcg/mL, BUpivacaine (Marcaine) 0.1% (0.1 mg/mL) (1/10%) in sodium chloride 0.9% 250 mL epidural Epidural 3 mL Given 02/23/2020 Epidural 3 mL Given 02/23/2020 fentaNYL 50 mcg/mL multi-dose injection Intravenous 50 mcg Given 02/23/2020 HYDROmorphone (Dilaudid) 10 mcg/mL, BUpivacaine (Marcaine) 0.1% (0.1 mg/mL) (1/10%) in sodium chloride 0.9% 250 mL epidural Epidural 6 mL/hr 6 mL/hr New Bag 02/23/2020 fentaNYL 50 mcg/mL multi-dose injection Intravenous 50 mcg Given 02/23/2020 HYDROmorphone (DILAUDID) injection 0.5 mg Epidural 0.2 mg Given 02/23/2020 fentaNYL (PF) 50 mcg/mL injection Intravenous 25 mcg Given 02/23/2020 DH AN APS EPIDURAL ROUNDIN02/24/2020 8:58 AM Average Numeric Rating Pain Score (0-10):: 2 Post-Op Day:: 1 Epidural Day:: 2 Epidural Infusion (solution):: HYDROmorphone 10 mcg/mL and BUpivacaine 0.1% Epidural Infusion Rate (mL/hr): 6 PCEA Dose (mL): 3 Out of Bed: Yes Ambulation: Yes Able to Use Incentive Spirometry: Yes Escalation of Care: No Tolerating Regular Diet: No Epidural Catheter Removed (Intact unless noted in Comments): No Notes/Plan: Mary Kay is doing well this morning. Her pain is controlled and she is ambulating in her room. She hasnot required her PCEA overnight and used 2 doses in PACU. She is tolerating a sips and chips diet and denies ROBF. Her epidural dressing is clean, dry and intact. We made no changes to her epidural today and will begin to wean once she can tolerate oral analgesics. POLLY Cain RN, have performed the documentation for this encounter in the presence of andacting as a scribe for Dr. Marie. APS Nurse: Polly Rucker RN Resident:: Brandt Rae MD Fellow:: Irina Gerber MD Attending Physician:: Elizabeth Marie MD I performed the above scribed service and agree with the accuracy of the note. ELIZABETH MARIE MD Celina Dueñas RD - 02/24/2020 7:53 AM EDT Nutrition Consult Note Mary Kay Gonzalez is a 59 y.o. female admitted with gastrointestinal stromal tumor now s/p pancreaticoduodenectomy with feeding J-tube placement Reason for intervention: Consult: s/p james, consult for TF rec's (Peptamen AF) Nutrition Recommendations: Suggest Peptamen AF with a goal rate of 52 ml per hour x24 hours daily. At goal, this will provide 1248 ml formula, 1497 calories, 94 grams protein, 1008 ml water from formula and 100% of RDI's for vitamins and minerals. - Monitor hydration status on above TFs. Pt may need additional fluids (~500 ml) depending on IVFs, med flushes, p.o. Intake, etc. - ADAT to Regular diet with low fat/low fiber restriction as indicated - Monitor lytes and replete as indicated - Monitor for need of panc enzymes - Biweekly weights appreciated I was not able to discuss with patient's provider. Team paged with nutrition recommendations. Pager # [phone]. All Active TF Orders: Tubefeeding Orders (From admission, onward) None Enteral access: J-tube Oxygen Therapy/airway: O2 Device: None (Room air) Lab Results Component Value Date NA 132 (L) 02/24/2020 K 4.3 02/24/2020 CL 99 02/24/2020 CO2 25 02/24/2020 BUN 12 02/24/2020 CREATININE 0.41 (L) 02/24/2020 GFRAA 133 02/24/2020 MAGNESIUM 0.78 02/24/2020 CALCIUM 7.9 (L) 02/24/2020 PHOS 3.1 02/24/2020 AST 73 (H) 02/24/2020 ALT 69 (H) 02/24/2020 ALKPHOS 49 02/24/2020 BILITOT 0.6 02/24/2020 BILIDIR 0.1 02/03/2020 IRON 22 (L) 02/08/2020 Lab Results Component Value Date POCGLU 128 02/24/2020 POCGLU 121 02/24/2020 POCGLU 119 02/24/2020 POCGLU 167 02/24/2020 POCGLU 145 02/23/2020 POCGLU 155 02/23/2020 Skin Status: Shift Pressure Injury Prevention Occiput: No Injury Thoracic Spine: No Injury Sacral: No Injury Ischial - left: No Injury Ischial - right: No Injury Heel - left: No Injury Heel - right: No Injury Elbow - left: No Injury Elbow - right: No Injury Device Sites: O2 sat monitor, SCD's/venodynes, IV sites, allen, NGT Other Sites: epidural,Jtube, JOSE Relevant medications: colace, humalog, MgSO4, protonix, abx, senna, dilaudid gtt, zofran prn I/O from last 2 shifts: Intake/Output Summary (Last 24 hours) at 02/24/2020 1211 Last data filed at 02/24/2020 1201 Gross per 24 hour Intake 2552.25 ml Output 2260 ml Net 292.25 ml Admit Weight: 52.3 kg Estimated body mass index is 20.69 kg/m?? as calculated from the following: Height as of this encounter: 159 cm (5' 2.6). Weight as of this encounter: 52.3 kg (115 lb 4.8 oz). [place] Body Weight: 113 lbs / 51.3 kg Usual Body Weight: 120 lbs / 54.4 kg per patient report Wt Readings from Last 10 Encounters: 02/23/20 52.3 kg (115 lb 4.8 oz) 02/08/20 52.3 kg (115 lb 3.2 oz) 02/01/20 52.9 kg (116 lb 10 oz) 01/27/20 52.6 kg (116 lb) 01/26/20 52.8 kg (116 lb 6.4 oz) 12/14/19 52.2 kg (115 lb) 12/07/19 53.5 kg (118 lb) 12/06/19 53.5 kg (118 lb) 11/25/19 54.4 kg (120 lb) Above weight history suggests 4% weight loss in 4 months, classified as insignificant in regard to malnutrition evaluation Assessment: Nutrition intake and intake history/Interview: Visited with patient this afternoon, friend at bedside. Patient reports she has a fast metabolism and finds it hard to keep on weight. Patient reports valentin had a good stable appetite and PO intake, has her own garden for veggies and makes homemade ferme nted veggies, kimchi etc. Eats 3 well balanced meals daily: BF- homemade granola cereal, eggs, chicken sausage, light lunch, and good dinner. However friend reports patient was feeling stressed aboutsurgery as timeline was pushed up and this stress could have cause slight weight loss in patient. Disc nutrition therapy once diet is advanced, both were receptive and accepted education materials. Estimated needs: Calories: 1550 (30 kcal/kg admit WT) Protein: 75-100 grams (1.5-2.0 g/kg IBW) Tolerance or barriers to meeting needs: n/a Nutrition Focused Physical Exam (NFPE): Not performed Protein-calorie Malnutrition: Not identified (Raji, JPEN J Parenteral Enteral Nutr. 2012 September;36(3): 273-83) Nutrition to continue to follow up while inpatient Celina Dueñas RD Pager [phone]/24/2020 7:37 AM EDTSummary: MEDICAL STUDENT PROGRESS NOTE Surgical Oncology Inpatient Progress Note Patient Name: Mary Kay JAMES; Age: 2 1960; 59 y.o. Room/Bed: 210/210-A Today's Date: 02/24/20 ID: Mary Kay Gonzalez is a 59 y.o. female now 1 Day Post-Op s/p pancreaticoduodenectomy with feeding J-tube placement and externalized PD stent for duodenal GIST. Procedures this Hospitalization: Whipple procedure with B2 reconstruction OR Findings: (from Dr. Galdamez's Op Note) There is no evidence of metastatic disease. The liver was very healthy- appearing. She had a large softball size mass arising from the duodenum but fortunately it was not invasive to the underlying peritoneum/IVC or SMA/portal vein. The Whipple resection was therefore quite straightforward. Her pancreas was completely juybmj-ucykwkqzi-azpr gland and small duct approximately 1 mm in diameter. We elected to stent the pancreatic anastomosis using an externalized 5 Malaysian pancreatic duct stent which was passed approximately 10 cm down into the pancreatic remnant body and tail. A 19 Malaysian Luly drain was placed in through a right lateral stab incision and passed posterior to the bile duct anastomosis and then anterior to the pancreatic anastomosis. We created an omental pedicle flap from the falciformligament and used this to cover the korin hepatis dissection. A 12 Malaysian feeding jejunostomy tube was placed approximately 30 cm downstream from the GJ anastomosis. The GJ anastomosis was an antecolicside to side, stapled, gastrojejunostomy anastomosis along the posterior aspect of the stomach. The pancreatic duct stent was exteriorized through a needle tip incision in the left midabdomen, secured to the skin and then connected to bile bag drainage. 24 Hour Events: -- pain well controlled on epidural -- no BM or flatus, adequate UOP via allen -- had one episode of nausea overnight, thinks due to lack of sleep and exhaustion; no vomiting In Hospital Issues: Active Hospital Problems Diagnosis ??? GIST (gastrointestinal stromal tumor), malignant Resolved Hospital Problems No resolved problems to display. Objective Last value Range last 24hrs Temperature Temp: 36.9 ??C (98.4 ??F) Temp: [36.5 ??C (97.7 ??F)-37 ??C (98.6 ??F)] Heart Rate Heart Rate: 90 Heart Rate: [75-90] Blood Pressure BP: 130/76 BP: (104-130)/(59-76) Respiratory Rate Resp: 16 Resp: [11-18] SpO2 SpO2: 97 % SpO2: [94 %-100 %] Physical Exam Gen: NAD HEENT: NC/AT, PERRL, NG tube draining bilious fluid CV : RRR Pulm: breathing comfortably, no respiratory distress Abd: non-distended, soft, appropriately tender, appropriately erythematous around incision, JOSE draining ss fluid : Allen to gravity draining CYU Ext: SCDs in place. Skin: warm, dry Drains: Allen JOSE drain PD Stent J-Tube 24 Hour I/O's: I/O last 3 completed shifts: In: 4062.3 [P.O.:10; I.V.:3703; Other:259.3; NG/GT:90] Out: 1445 [Urine:985; Other:410; Blood:50] PD Stent 0, NG 300 (bilious), JOSE 110 (ss) Admit Weight: 52.3 kg Current Weight: Weight: 52.3 kg (115 lb 4.8 oz) Labs: Recent Labs 02/24/20 0142 WBC 12.8* HGB 11.1* HCT 34.6* PLATELET 302 Recent Labs 02/24/20 0142 NA 132* K 4.3 CL 99 CO2 25 BUN 12 CREATININE 0.41* GLUCOSE 137 CALCIUM 7.9* MAGNESIUM 0.78 PHOS 3.1 Recent Labs 02/24/20 0142 AMYLASE 401* JOSE drain AMYLASE 2878 Assessment / Plan: Mary Kay Gonzalez is a 59 y.o. female 1 Day Post-Op s/p pancreaticoduodenectomy withfeeding J-tube placement and externalized PD stent for duodenal GIST. She is doing very well overalldespite feeling tired and lack of sleep. Her pain is well-controlled via epidural. Her JOSE amylase [id number], which is reassuring on Post-Op day 1. During the procedure, a chyle leak was visualized, so JPdrain will be monitored closely for any change in output fluids. Main goals for today are to encourage OOB at least to chair and use IS. Will continue to be on Sips and Chips. NEURO: Epidural managed by APS. CV: Hemodynamically normal. PULM: Encourage OOB/IS GI/FEN: Sips and Chips (Give Meds); replete Mag this AM, switch from LR to NS IVF RENAL: UOP adequate. ENDO: None HEME: DVT ppx enoxaparin ID: S/p periop antibiotics. Will finish Zosyn this AM MSK: None PPX: PPI, IS, SCDs LINES: PIV, Allen, JOSE Drain, PD stent, J-tube (capped) DISPO: Floor status, Attempt Cardiopulmonary Resuscitation - Inpatient Signed: [place] [facility] Surgical Oncology Service Team Pager #[phone] 02/24/20 7:29 AM Jaycee Sweet - 02/23/2020 4:54 PM EDT Post-operative check Ms. Gonzalez is day of surgery s/p pancreaticoduodenectomy with feeding J-tube placement and externalized PD stent for duodenal GIST. Seen on rounds recovering in the PACU. Doing well, feels tired, denies other complaints. Pain well controlled. No n/v/cp/soa. Patient Vitals for the past 8 hrs: BP Temp Temp src Pulse Resp SpO2 02/23/20 1615 -- -- -- 82 13 96 % 02/23/20 1600 106/61 36.9 ??C (98.4 ??F) Temporal 77 14 97 % 02/23/20 1545 -- -- -- 79 14 97 % 02/23/20 1530 -- -- -- 84 11 97 % 02/23/20 1515 -- -- -- 80 13 98 % 02/23/20 1500 113/68 -- -- 87 12 99 % 02/23/20 1445 113/68 -- -- 79 16 100 % 02/23/20 1434 -- -- -- 80 16 100 % 02/23/20 1433 104/66 36.7 ??C (98.1 ??F) Temporal 79 16 100 % NAD, well appearing NGT in place with thin sanguinous output, scant volume HRR Breathing non-labored on RA Abdomen soft, midline incision c/d/i; J tube capped, JOSE with ss drainage in bulb WWP A/P: Ms Gonzalez is recovering well s/p Whipple procedure. Appropriate for med/surg status. Will monitor closely. Wellness check by covering recruiting intern overnight. Flush NGT per orders; CLWS. Labs in AM. Sips and chips. Jaycee Sweet MD PGY 5 General Surgery [id number] Ericka Galdamez RN - 02/23/2020 2:47 PM EDT 1430 - Pt arrives to PACU from OR via bed with service and anesthesia. Monitors on with alarms. Pt sedated. ML abd incision CDI. Epidural infusing. Allen draining cl yellow urine. Report received and care assumed. 1530 - Pt doing well, no pain or nausea, moved well for epidural/skin assessment. 1610 - Team at BS 1710- Friend called, updated by phone. She has reached Mary Kay's mom in [place] and updated her and all 3 sons. Information passed along to patient 1735 - Report called to CLARKE Fernandez [address] [place]. Bed still cleaning. documented in this encounter H&P Notes Carlee Galdamez MD - 02/23/2020 6:19 AM EDT Patient Name: Mary Kay Gonzalez Patient Age: 59 y.o. Birthdate: 1960 Admit date: 02/23/2020 Attending Physician: Carlee Galdamez MD I saw Mary Kay this am and spoke to her PCP, Dr. Wheeler, yesterday afternoon as he had blood work done because she was having chills- her WBC from yesterday was normal at 10.9. No cough or urinary sx. CTA B RRR Informed consent reviewed from scanned documents. OK to proceed with epidural and whipple as planned. Reid Galdamez MD 02/23/2020 6:21 AM documented in this encounter Miscellaneous Notes Care Management - Kamilah Jordan RN - 03/01/2020 12:43 PM EDT [facility] Follow up Note: Referral to : [facility] Confirmed with Paola from [facility] that patient will be seen day of discharge 03/01/20 @ 4pm Hospital teaching occurred 02/29/20 Delivery of IV supplies will occur 03/01/20 @ 5pm.. To be delivered to patients verified home address. Infusion [facility] [phone] Plan of Care - Alina Osman RN - 03/01/2020 3:32 AM EDT OUTCOME EVALUATION NOTE: OUTCOME SUMMARY: Patient denied pain. Patient taking small amounts water PO without problems. No complaints of nausea. Tube feeding infusing at 52 ml/hr via J tube, tolerated well. Slept well. Voiding well. PLAN MOVING FORWARD: Monitor toleration of diet and tube feeding. INDIVIDUALIZED FALL PREVENTION INTERVENTIONS: Patient-specific fall risk factors per assessment: [current deficits]: Tube feeding, general weakness Assistance [level of assistance required for transfers and ambulation]: Stand by assist Supervision [direct monitoring required during toileting and ADLs]: Arms reach Surveillance [continuous indirect monitoring]: Call light in reach,purposeful rounds Patient-specific fall prevention interventions for sensory deficits provided, if applicable: [X] Yesadjust lighting CPG GOAL OUTCOME EVALUATION: Plan of Care - Smita Solis OTA - 02/29/2020 3:58 PM EDT Occupational Therapy Treatment Note Treatment Number OT: 2 Patient Dx: Mary Kay Gonzalez is a 59 y.o. female admitted on 02/23/2020 s/p pancreaticoduodenectomy with feeding J-tube placement and externalized PD stent for duodenal GIST. 1 Day Post-Op s/p Whipple. ?? Past Medical History: Diagnosis Date ??? Arthritis ? Cancer Past Surgical History: Procedure Laterality Date ??? PRO ENDOSCOPIC US EXAM, ESOPH N/A 11/25/2019 ?? UPPER EUS- ENDOSCOPIC ULTRASOUND performed by Pedrito Arrieta MD at [facility] ENDOSCOPY ??? PRO INSERT TUBE-BOWEL, ENTERAL ALIMENT N/A 02/23/2020 ?? @JEJUNOSTOMY TUBE PLACEMENT (WRVU 2.62) performed by Carlee Galdamez MD at [facility] MAIN OR ??? PRO OMENTAL FLAP, INTRA-ABDOMINAL ?? 02/23/2020 ?? @OMENTAL FLAP, INTRA-ABDOMINAL (WRVU 6.54) performed by Carlee Galdamez MD at [facility] OR ??? PRO PART REMV PANC, PROX+PART DUOD+ANAST N/A 02/23/2020 ?? @PANCREATECTOMY, WHIPPLE TYPE WITH PANCREATOJEJUNOSTOMY (WRVU 52.79) performed by Carlee Galdamez MD at [facility] OR ??? PRO UNLISTED PX PNCRS N/A 02/23/2020 ?? PANCREATIC STENT INSERTION (WRVU 18.28) performed by Carlee Galdamez MD at [facility] OR ?? Social History: Home Setup: pt lives alone in a one level ranch. 3 [address] with no railing. Bathroom has a tub shower. Functional Status: independent with ADLs, IADLs, and functional mobility. 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 She cares for a pet dog Equipment at home: none Fall history: none Precautions/Special Considerations: fall risk, full code, J tube, PD stent, allen, sips and chips, epidural thoracic catheter, NG tube, PCEA S: I'm feeling better, I'm going to have friends help me O: Patient seen for skilled OT treatment, and demonstrated the following: ?? Self-care & Functional Mobility: Pt in recliner chair upon arrival. Discussed OT goals. ?? Sit to stand Independently without device ?? Pt mobilized to/from bathroom without device independently ?? Pt completed UB bathing/melanie care standing in front of the sink Independently Independent to doff/don gown Pt doffed/doned underwear,managed incontinence pad Independently standing without lob Grooming task standing in front of the sink I Educated pt on energy conservation techniques/pacing strategies Pt returned to recliner,rested for few minutes Pt doned/doffed hospital pants standing without physical assistance Discussed Iadls/safety fall prevention/pacing strategies. Pt reported friends and her sons will assist her Pt left in recliner with call encinas and essentials in reach,chair alarm activated ?? Cognition: ?? Behavior / Mood: alert and cooperative ?? Alert and oriented to: person, place, time and situation ?? Follows commands: multi step and 100% of the time ?? Attention: WFL ?? Safety awareness: WFL ?? Vision: WFL ?? Endurance: Fair ?? Vitals: Stable on RA ?? Strength/ROM: WFL Pain: 0/10 Education: Pt/family/caregiver education ongoing regarding: Role of occupational therapy/rehabilitation, Transfers, ADL, Breathing exercises, Positioning, Safety, Precautions/Protocol, Functional Mobility, Activity pacing/Energy conservation, Home Management, Balance and Recommendations. Staff Communication: Patient status, treatment, and mobility recommendations discussed with nursing/other staff. ASSESSMENT: Patient participated in self care tasks standing in front of the sink. Pt verbalized understanding of all information discussed and reported will have assistance from friends and sons for adls/Iadls. Pt will benefit from ongoing therapeutic interventions to achieve pt's and therapy goals Anticipated Discharge Disposition: home with assist, home with home health Equipment Recommendations: TBD ?? Daily schedule / Staff Recommendations: Utilize upright chair position using bed features or transfer to recliner chair as appropriate with CGA and FWW, ambulate as tolerated ?? Encourage participation in ADL's by providing set up A on tray table and physical assist only as needed ?? Occupational Therapy Goals: To be achieved by 03/09. Pt will perform all functional transfers with modified independence, assistive device as needed. Met Pt will ambulate household distances with modified independence, assistive device as needed. Pt will complete UB/LB dressing with supervision, AE as needed. Met Therapy Frequency: 1-3 more visits Total Evaluation Minutes, Occupational Therapy: 28(Schmx2) Pager: [phone] ROSY Rivas Occupational Therapy Rehabilitation Department Plan of Care - Peyton Mir, PT - 02/29/2020 1:24 PM EDT Physical Therapy Note Treatment Number PT: 2 Patient profile: Ms. Gonzalez is day of surgery s/p pancreaticoduodenectomy with feeding J-tube placement and externalized PD stent for duodenal GIST. 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 Pt. To utilize no device ind'ly for transfers and ambulation.. ?? Please encourage up to chair for meal times as able. Subjective: I am feeling so much better Objective: Patient seen for physical therapy and demonstrated the following: Pain-no c/o pain Vital Signs- VSS throughout session ?? Pt demonstrates ind with bed mobility,transfers and amb without device. Pt amb x 150 feet. ?? Pt ascended/descended 3 stairs with sup and states that she will have friends to help her once she gets home. ?? IND with use of spirometer. ?? Pt left in bedside recliner chair, with all needs met, with call encinas in reach and with chair alarm active following visit. Education: Pt educated on no further PT needs and safety at home. Assessment: Mary Kay Gonzalez was seen today for physical therapy treatment session for continuation ofPOC. Pt has progressed very well and demonstrates ind with all mobility. No further inpt PT needs. Plan is for DC to home when medically ready. Discharge Recommendations: Based on the current findings, Anticipated Discharge Disposition: home when medically ready for hospital discharge. Consult Recommendations: No other consults recommended at this time. Equipment needs: No equipment necessary Physical Therapy Goals: To be achieved by 03/10/20:GOALS MET ?? 1. Pt. to demonstrate knowledge of safety limitations and precautions and will appropriately requestassistance for functional activities and to mobilize. 2. Pt. to demonstrate understanding of appropriate pacing and spirometry exercises. 3. Pt. to perform bed mobility independently.(Log rolling technique). 4. Pt. to perform all transfers independently using no assistive device. 5. Pt. to ambulate 300+ feet independently using a no assistive device. 6. Pt. to ambulate up/down 3 step/stairs using one hand hold with supervision Plan: Therapy Frequency: monitor for as outlined in initial evaluation. Patient agrees with plan as stated. Time IN / OUT: 8024-3031 Total Evaluation Minutes, Physical Therapy: 15 Peyton Mir PT Pager: [phone] Physical Therapy Inpatient Rehabilitation Department Plan of [place] - Jesse Lizarraga RN - 02/28/2020 4:29 PM EDT OUTCOME EVALUATION NOTE: ?? OUTCOME SUMMARY: Pt pain 0-05/21, managed well w/ PCEA and scheduled medications. 1 Bm and AUOP this shift. JOSE drain and Epidural removed w/o complications. Fluids discontinued. TF increased to 40ml/hr and is due to be increased to 50 at 2130. J-tube education enforced and pt was able to flush J-tube. Pt ambulated in quispe x1 and resting between care. PLAN MOVING FORWARD: Monitor pain, I&Os Promote ambulation, OOB Possible Wed. discharge ?? INDIVIDUALIZED FALL PREVENTION INTERVENTIONS:?High risk ?? Patient-specific fall risk factors per assessment: [current deficits]:?59 yr old w/ recent surgery, J tube, generalized weakness, PIV, unfamiliar environment ?? Assistance [level of assistance required for transfers and ambulation]:?SBA Supervision [direct monitoring required during toileting and ADLs]: Eyes on ?? Surveillance [continuous indirect monitoring]:??Nurse knowledge exchange, purposeful rounding, environmental modifications (waste basket is out of the path and the IV tubing and cords are free from thefloor), fall reduction program in place, lighting adjusted for task, bed in low position, wheels locked, side rails up (x2), nonskid socks worn OOB, no restraints, call light is within reach at all times, assistive device, bed/chair alarm, [place] ID band on ?? Patient-specific fall prevention interventions for sensory deficits provided, if applicable:?[X] N/A ? CPG GOAL OUTCOME EVALUATION: Plan of Care - Lisa Walker RN - 02/28/2020 4:18 AM EDT OUTCOME EVALUATION NOTE: ?? OUTCOME SUMMARY: Patient resting between care. Pain??well managed with scheduled tylenol and epidural. Adequate??UOP via toilet. Small loose??BM this shift, passing flatus. Moderate amount of serosanguinous output fromJP. Tolerating TF running at 30ml/hr. Ambulated in the quispe x1. Will continue to monitor. ?? PLAN MOVING FORWARD: Monitor pain Monitor drain output Promote ambulation ?? INDIVIDUALIZED FALL PREVENTION INTERVENTIONS:?High risk ?? Patient-specific fall risk factors per assessment: [current deficits]:?Epidural, pain, drains, generalized weakness, Infusing PIV? Assistance [level of assistance required for transfers and ambulation]:?SBA with IV pole ?? Supervision [direct monitoring required during toileting and ADLs]:?Hands on ?? Surveillance [continuous indirect monitoring]:?Bed/chair alarm, masimo, hourly rounding, room near unit station, NKE at bedside, yellow fall band on, environmental modifications (clutter-free environment, tubing secured, bed low, lighting adjusted, nonskid socks when OOB, bed wheels locked, call light with in reach, upper side rails x2, ID bands on) ?? Patient-specific fall prevention interventions for sensory deficits provided, if applicable:?[X] N/A ? CPG GOAL OUTCOME EVALUATION:? Plan of Care - Rex Parra RN - 02/27/2020 1:36 AM EDT Problem: Patient Care Overview Goal: Plan of Care Review Outcome: Ongoing (Interventions Implemented as Appropriate) 02/26/20195802/27/20 0127 Plan of Care Review Progress -- progress toward functional goals as expected Coping/Psychosocial Plan Of Care Reviewed With patient -- OUTCOME EVALUATION NOTE: OUTCOME SUMMARY: Patient tolerating removal of NG tube and advancement to trickle tube feedings and sips and chips diet. Patient pain well controlled with PCEA and scheduled medications. Both pancreatic and JOSE drains remain in place with moderate to large output. Patient is otherwise stable and VS are within acceptable limits. PLAN MOVING FORWARD: Continue to advance diet as tolerated, TF per orders, PCEA and scheduled medications to control pain. INDIVIDUALIZED FALL PREVENTION INTERVENTIONS: Patient-specific fall risk factors per assessment: [current deficits]: No overt deficits. Assistance [level of assistance required for transfers and ambulation]: Standby assistance. Supervision [direct monitoring required during toileting and ADLs]: Patient may be left unsupervisedrequires some minimal assistance with ADLs. Surveillance [continuous indirect monitoring]: Purposeful rounding and continuous pulse oximetry (Masimo). Patient-specific fall prevention interventions for sensory deficits provided, if applicable: [X] N/A CPG GOAL OUTCOME EVALUATION: Goal: Individualization & Mutuality Outcome: Ongoing (Interventions Implemented as Appropriate) 02/24/20 0807 Mutuality/Individual Preferences What Anxieties, Fears or Concerns Do You Have About Your Health or Care? no What Questions Do You Have About Your Health or Care? is it normal for this output to be so dark? What Information Would Help Us Give You More Personalized Care? none at this time Goal: Fall Prevention-Safe Patient Handling Outcome: Ongoing (Interventions Implemented as Appropriate) 02/26/20183402/26/201958 [place] Fall Risk History of Falling -- 0 Secondary Diagnosis -- 15 Ambulatory Aids -- 15 Intravenous Therapy/Heparin/Saline Lock -- 20 Gait/Transferring -- 10 Mental Status -- 0 Score -- 60 OTHER Riggins Fall Risk -- High Restraint Interventions Safety Promotion/Fall Prevention -- activity supervised;nonskid shoes/slippers when out of bed;safety round/check completed Positioning Body Position -- independent;supine Activity Activity Type -- activity adjusted per tolerance Activity Assistance Provided assistance, stand-by -- Assistive Device Utilized front-wheel walker -- Goal: Infection Control Outcome: Ongoing (Interventions Implemented as Appropriate) 02/26/201958 Safety Interventions Isolation Precautions standard precautions maintained Infection Prevention rest/sleep promoted;single patient room provided Coping Strategies Supportive Measures active listening utilized;goal setting facilitated;positive reinforcement provided;relaxation techniques promoted;problem solving facilitated;self-care encouraged;self-reflection promoted;self-responsibility promoted;verbalization of feelings encouraged Goal: Discharge Needs Assessment Outcome: Ongoing (Interventions Implemented as Appropriate) 02/27/20126 Discharge Needs Assessment Concerns To Be Addressed care coordination/care conferences;adjustment to diagnosis/illness concerns Readmission Within The Last 30 Days no previous admission in last 30 days Discharge Disposition still a patient Activity/Self Care Review of Systems Equipment Currently Used at Home none Goal: Interdisciplinary Rounds/Family Conf Outcome: Ongoing (Interventions Implemented as Appropriate) 02/27/20126 Interdisciplinary Rounds/Family Conf Participants patient;physician;nursing Plan of Care - Lisa Walker RN - 02/25/2020 1:08 AM EDT OUTCOME EVALUATION NOTE: ?? OUTCOME SUMMARY: Patient resting between care. Pain well managed with scheduled IV tylenol and epidural. Adequate UOPvia allen. No BM this shift, is unable to pass flatus. Non audible bowel sounds. Scant output from pancreatic stent and small amount of serosanguinous output from JOSE. J-Tube flushed per orders. NGT on LCWS with moderate amount of dark brown output. Ambulated in the quispe x1. Will continue to monitor. ?? PLAN MOVING FORWARD: Manage pain Monitor drain output Promote ambulation ?? INDIVIDUALIZED FALL PREVENTION INTERVENTIONS: High risk ?? Patient-specific fall risk factors per assessment: [current deficits]: Epidural, pain, drains, generalized weakness, Infusing PIV ?? Assistance [level of assistance required for transfers and ambulation]: SBA with FWW ?? Supervision [direct monitoring required during toileting and ADLs]: Hands on ?? Surveillance [continuous indirect monitoring]: Bed/chair alarm, masimo, hourly rounding, room near unit station, NKE at bedside, yellow fall band on, environmental modifications (clutter-free environment, tubing secured, bed low, lighting adjusted, nonskid socks when OOB, bed wheels locked, call lightwith in reach, upper side rails x2, ID bands on) ?? Patient-specific fall prevention interventions for sensory deficits provided, if applicable: [X] N/A ? CPG GOAL OUTCOME EVALUATION: ?? Plan of Care - Jana Alejandre RN - 02/24/2020 5:32 PM EDT OUTCOME EVALUATION NOTE: OUTCOME SUMMARY: Patient denying pain for most of shift, reporting some abdominal 'soreness' but 'not pain.' Pt was up to the chair x1, worked with PT/OT, ambulated in quispe x1 and in room. Overall reporting fatigue from not sleeping well last night. Intermittent nausea reported, PRN IV zofran given x1 this morning after moving to chair, otherwise tolerating sips and chips. NGT continues with large amounts of dark brown output. Allen with adequate yellow UOP. JOSE drain and pancreatic duct drain with scant/small output. No BM this shift. Friend bedside for visit. Resting well between care. ?? PLAN MOVING FORWARD: Manage pain/wean epidural I&O's; D/c NGT Advance diet as tolerated OOB activities; ROBF INDIVIDUALIZED FALL PREVENTION INTERVENTIONS: High fall risk ?? Patient-specific fall risk factors per assessment: [current deficits]: Epidural, acute pain, drains/devices, generalized weakness, IVF, nausea ?? Assistance [level of assistance required for transfers and ambulation]: SBA ?? Supervision [direct monitoring required during toileting and ADLs]: Eyes on ?? Surveillance [continuous indirect monitoring]: Bed/chair alarm, masimo, hourly rounding, room near unit station, NKE at bedside, yellow fall band on, environmental modifications (clutter-free environment, tubing secured, bed low, lighting adjusted, nonskid socks when OOB, bed wheels locked, call lightwith in reach, upper side rails x2, ID bands on) ?? Patient-specific fall prevention interventions for sensory deficits provided, if applicable: [X] N/A CPG GOAL OUTCOME EVALUATION: Initial Assessments - Marielos Huynh RN - 02/24/2020 1:56 PM EDT Office of Care Management Initial Assessment Marielos Huynh RN reviewed record and discussed patient with Care Team. Source of Information: Patient, team, bedside nurse and medical record Introduced self/reviewed role; services accepted. 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 Jaycee Sweet MD Date of Service: 02/24/2020 11:45 AM Reason for Hospitalization: GIST (gastrointestinal stromal tumor), malignant Patient Active Problem List Diagnosis Code ??? 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 Anemia D64.9 ??? Disorder of thyroid gland E07.9 ??? Arthritis M19.90 ??? Tinnitus H93.19 ??? Vitamin D deficiency E55.9 ??? Osteoarthrosis M19.90 ??? GIST (gastrointestinal stromal tumor), malignant C49.A0 Past medical History: Past Medical History: Diagnosis Date ??? Arthritis ??? Cancer Hospitalizations Within the Past 30 Days: 01/31-02/03 Neutropenic fever Anticipated Length Of Stay (If known): TBD Admission order confirmed/dated: Carlee Galdamez MD 02/08/20 1902 Current Decision-Making Capacity: Self, A&Ox3, Full Capacity Advance Care Planning: Attempt Cardiopulmonary Resuscitation - Inpatient <no information> If AD's have not been completed Franko Gonzalez would be surrogate decision maker per [place] surrogate decision making law. (Only good for 90 days) Any patient receiving care at [facility] must abide by [place] law. The hierarchy for surrogate decision making is: (a) Patient???s spouse, or civil union partner or common law spouse unless there is a divorce proceeding, separation agreement, or restraining order limiting that person???s relationship with the patient. (b) Any adult son or daughter of the patient. (c) Either parent of the patient. (d) Any adult brother or sister of the patient. (e) Any adult grandchild of the patient. (f) Any grandparent of the patient. (g) Any adult aunt, uncle, niece, or nephew of the patient. (h) A close friend of the patient. (i) The agent with financial power of attorney lawyer or a conservator appointed in accordance with RSA 464-A. (j) The guardian of the patient???s estate. Current Coping/Education/Information Needs: Patient states she is coping pretty well and declined needing a social work consult at this time. Social History Tobacco Use ??? Smoking status: Former Smoker Packs/day: 0.50 Types: Cigarettes Quit date: 1994 Years since quittin.8 ??? Smokeless tobacco: Never Used ??? Tobacco comment: never vape Substance Use Topics ??? Alcohol use: Not Currently Comment: none since 05/12/2019 ??? Drug use: Never reports that she quit smoking about 25 years ago. Her smoking use included cigarettes. She smoked 0.50 packs per day. She has never used smokeless tobacco. She reports previous alcohol use. She reports that she does not use drugs. Current Functional Ability: SBA Functional Status Prior to Admission: Independent, driving, completely all IADL's and ADls Home Environment: Lives with 1 dog. 3 steps to enter home and lives on one level. She will be stayngwith a friend for a little while when she leaves. [address] [facility] [address] Social & Family Supports/Community Resources: son and friends Extended Emergency Contact Information Primary Emergency Contact: Des Wheeler MD Relation: Friend Secondary Emergency Contact: PAUL FOX Mobile Relation: Friend Behavioral Health History: denies Other Pertinent/Service Specific Information: No Health/Prescription Coverage: Primary Insurance: [employer] Payor: [facility] [employer] [facility] / Plan: [employer] / Product Type: *No Product type* / Secondary Insurance: N/A Prescription Coverage: [facility] Preferred Pharmacy: [address] [facility] [address] [facility] [address] Primary Care Provider: Irving Wheeler MD [phone] Patient/Caregiver Goals of Treatment: to have tumor removed and heal Potential Needs for Transition of Care: Rehab/SNF: n/a Home Health: The patienthas been provided a list of Home Health Agencies/Infusion vendors which serve their preferred geographic area. A letter describing our affiliations was reviewed with them and they were educated about their right to choose where referrals are placed. Patient requests referral to [facility] PHONE: [phone] FAX: [phone]. [place] for tube feed supplies or Expected date of discharge: 03/01/2020. Referral routed to the [employer] for matching with agency/vendor and to provide any required information. DME: n/a Community Resources: No Transportation: friend Dialysis: n/a Anticipated Barriers to Discharge/Special Considerations: None Assessment: [facility] routed and orders pended for RN to support tube feeds and [facility] for supplies. Patient with no apparent RNCM/SW needs at this time. No housing, transportation, insurance, resources concerns identified at this time. Supports in place to achieve a safe post-hospital transition. No identified barriers to accessing necessary care and/or follow-up after discharge. Assessment: patient is admitted to Surg/Onc service for Gastrointestinal stromal tumor Plan: A member of the Care Management team will continue to monitor progress, follow for continuity of care and assist with transition of care planning. Marielos Huynh RN tire mounter Pager: [phone] Plan of Care - Bree Hope OT - 02/24/2020 11:01 AM EDT Occupational Therapy Evaluation Patient profile: Mary Kay Gonzalez is a 59 y.o. female admitted on 02/23/2020 s/p pancreaticoduodenectomy with feeding J-tube placement and externalized PD stent for duodenal GIST. 1 Day Post-Op s/p Whipple. Past Medical History: Diagnosis Date ??? Arthritis ??? Cancer Past Surgical History: Procedure Laterality Date ??? PRO ENDOSCOPIC US EXAM, ESOPH N/A 11/25/2019 UPPER EUS- ENDOSCOPIC ULTRASOUND performed by Pedrito Arrieta MD at [facility] ENDOSCOPY ??? PRO INSERT TUBE-BOWEL, ENTERAL ALIMENT N/A 02/23/2020 @JEJUNOSTOMY TUBE PLACEMENT (WRVU 2.62) performed by Carlee Galdamez MD at [facility] MA[facility] OR ??? PRO OMENTAL FLAP, INTRA-ABDOMINAL 02/23/2020 @OMENTAL FLAP, INTRA-ABDOMINAL (WRVU 6.54) performed by Carlee Galdamez MD at [facility] OR ??? PRO PART REMV PANC, PROX+PART DUOD+ANAST N/A 02/23/2020 @PANCREATECTOMY, WHIPPLE TYPE WITH PANCREATOJEJUNOSTOMY (WRVU 52.79) performed by Adri Galdamez MD at [facility] OR ??? PRO UNLISTED PX PNCRS N/A 02/23/2020 PANCREATIC STENT INSERTION (WRVU 18.28) performed by Carlee Galdamez MD at [facility] OR Social History: Home Setup: pt lives alone in a one level ranch. 3 [address] with no railing. Bathroom has a tub shower. Functional Status: independent with ADLs, IADLs, and functional mobility. 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 She cares for a pet dog Equipment at home: none Fall history: none Precautions/Special Considerations: fall risk, full code, J tube, PD stent, allen, sips and chips, epidural thoracic catheter, NG tube, PCEA Subjective: I'm not used to this, I've never been sick or been to the hospital Objective: Seen today for OT evaluation. ??? Vital Signs o HR: 96% on RA o SpO2: 85 pbm o BP: 112/70 sitting EOB ??? Pain: 3/10 at site of incision at rest and with activity ??? Cognitive Status/Behavior o Behavior / Mood: alert and cooperative o Alert and oriented to: person, place, time and situation o Follows commands: multi step and 100% of the time o Attention: WFL o Safety awareness: WFL ? ? Vision & Perception o WNL/WFL ?? Communication o WFL ??? Musculoskeletal o Hand dominance: right o ROM: WFL o Strength: WFL o Sensation: denied N/T o Skin: incision c/d/i ??? Activities of Daily Living: o Self-feeding: sips and chips order, has NG tube o Grooming: performed oral care (with no toothpaste) and washed face with supervision while standingat the sink o Dressing: donned slip on shoes with supervision sitting EOB o Bathing: not tested o Toileting: pt has allen catheter and j tube ??? Functional Mobility: o Supine to sit: CGA using log rolling technique and holding onto bed rail o Sit to stand: CGA/supervision o Ambulation: 5' to and from bathroom with CGA and FWW, assist for line management o Stand to sit: CGA/supervision o Sit to supine: CGA using log rolling technique ??? Balance o Sitting balance: good o Standing balance: fair Education: patient have been educated on Role of occupational therapy/rehabilitation, Transfers, Assistive device/technique, ADL, Positioning, Safety, Functional Mobility, Activity pacing/Energy conservation, Balance, Recommendations and Discharge planning and verbalizes understanding. Patient status, treatment, and mobility recommendations discussed with nursing. Pt returned to supine, notified RN about NGT (was clamped prior to ambulating) Assessment: Pt has been seen for occupational therapy evaluation. Mary Kay Gonzalez presents with the following performance skill deficits and client factors: increased pain, decreased activity tolerance,decreased sitting/standing balance and compromised mobility status. These performance deficits have led to activity limitations and participation restrictions in the following areas of occupation: dressing, transfers/mobility, home management, work and driving. Pt performed all functional mobility with CGA/supervision, FWW, and assist for line management. Pt was very independent prior to admission and is currently below baseline level of function. Anticipate that pt will make quick progress and be able to return home with VNA/home health. Pt would benefit from further inpatient OT interventions to address performance deficits and maximize participation and independence with occupations of daily living. Equipment needs at discharge: TBD pending progress Anticipated Discharge Disposition: home with assist, home with home health Other Recommendations: ?? Utilize upright chair position using bed features or transfer to recliner chair as appropriate with CGA and FWW, ambulate as tolerated ?? Encourage participation in ADL's by providing set up A on tray table and physical assist only as needed Other Recommendations: No other consults recommended at this time Goals: To be achieved by 03/09. Pt will perform all functional transfers with modified independence, assistive device as needed. Pt will ambulate household distances with modified independence, assistive device as needed. Pt will complete UB/LB dressing with supervision, AE as needed. Plan: OT: Therapy Frequency: 1-3 more visits Planned OT interventions: Role of occupational therapy/rehabilitation, Transfers, Assistive device/technique, ADL, Positioning, Safety, Functional Mobility, Activity pacing/Energy conservation, Home Management, Balance, Recommendations and Discharge planning. Total Evaluation Minutes, Occupational Therapy: 26(low complexity eval) 2017 OT Evaluation Code Rationale: ?? Diagnosis & Pertinent Co-Morbidities affecting Plan of Care: see PMHx ?? Occupational Profile & Client History: Brief Expanded Extensive x ?? Assessment of Occupational Performance: 1-3 performance deficits 3-5 performance deficits x 5 + performance deficits ?? Clinical Decision Making: Low Moderate High x Clinical decision making of low complexity using standardized patient assessment instrument and measurable assessment of functional outcome. Bree Hope OT Pager [phone] Occupational Therapy Rehabilitation Department Plan of Care - Peyton Mir PT - 02/24/2020 10:56 AM EDT Physical Therapy Evaluation Patient profile: Ms. Gonzalez is day of surgery s/p pancreaticoduodenectomy with feeding J-tube placement and externalized PD stent for duodenal GIST. Patient with the following active problems: Past Medical History: Diagnosis Date ??? Arthritis ??? Cancer Past Surgical History: Procedure Laterality Date ??? PRO ENDOSCOPIC US EXAM, ESOPH N/A 11/25/2019 UPPER EUS- ENDOSCOPIC ULTRASOUND performed by Pedrito Arrieta MD at [facility] ??? PRO INSERT TUBE-BOWEL, ENTERAL ALIMENT N/A 02/23/2020 @JEJUNOSTOMY TUBE PLACEMENT (WRVU 2.62) performed by Carlee Galdamez MD at [facility] OR ??? PRO OMENTAL FLAP, INTRA-ABDOMINAL 02/23/2020 @OMENTAL FLAP, INTRA-ABDOMINAL (WRVU 6.54) performed by Carlee Galdamez MD at [facility] OR ??? PRO PART REMV PANC, PROX+PART DUOD+ANAST N/A 02/23/2020 @PANCREATECTOMY, WHIPPLE TYPE WITH PANCREATOJEJUNOSTOMY (WRVU 52.79) performed by Adri Galdamez MD at [facility] OR ??? PRO UNLISTED PX PNCRS N/A 02/23/2020 PANCREATIC STENT INSERTION (WRVU 18.28) performed by Carlee Galdamez MD at [facility] OR Active Non-Hospital Problems Diagnosis ??? Anemia ??? Disorder of thyroid gland ??? Arthritis ??? Tinnitus ??? Vitamin D deficiency ??? Osteoarthrosis ??? 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 Precautions/Special Considerations: Epidural, CARDIAC CATH LAB RADIOLOGY TECHNOLOGIST, NG tube, J tube, JOSE drain, pancreatic stent, allen, midline incision, sips and chips, Mobility and Positioning Recommendations: ?? Pt. to utilize RW and CTG/sup and assist for tubes and lines for ambulation and transfers with nursing. ?? Please encourage up to chair for meal times as able. ?? Pt encouraged to ambulate frequently with staff, getting into the bathroom for toileting and walking out in the quispe >/= 3 times daily as able. ?? Log rolling for bed mobility ?? Spirometry hourly Subjective: ???Pt teary during session, I am feeling depressed (RN updated). Objective: Pt seen for evaluation today. Pain- c/o 3/10 at midline incision with amb and bed mobility Vital Signs- VSS throughout session, RA, BP- 108/69 sitting Mental Status: alert, oriented to person, place, and time Vision: Grossly intact Skin: midline incision, healing well Musculoskeletal: ROM: WFL'S Strength: mild generalized weakness from surgery Sensation: grossly intact Bed Mobility: Supine to Sit: NA, educated on log rolling Sit to Supine: sup yld-sdtpuhjga-gzmyrx. Transfers: Sit to Stand: CTG/sup, cues for hand placement Stand to Sit: CTG/sup, cues for hand placement Bed to Chair: CTG/sup with RW Gait: Distance: 100 feet Device used: RW Level of assist: CTG/sup, Education for use and technique with RW Gait mechanics: slow pace, steady with RW Stairs: NA Balance: Sitting Static: good Sitting Dynamic: good Standing Static: good with RW Standing Dynamic / Gait: Good with RW Therex: spirometry, educated on correct technique, pt performed x5. Educated on performing hourly 10x as able. Education: patient has been educated on Bed mobility, Transfers, Assistive device/technique, Exercise, Breathing exercises, Safety , Precautions/protocol, Equipment use, Gait , Activity pacing/Energy conservation, Role of therapy, Balance and Discharge planning and verbalizes and demonstrates understanding. Patient status, treatment, and mobility recommendations discussed with nursing. Assessment: Mary Kay Gonzalez was seen today for physical therapy evaluation. Upon evaluation, pt alertand oriented, cooperative. Pt teary and vocalizes feeling depressed.(RN notified). Pt with multiple tubes and lines, however mobilized with CTG/sup and use of RW at this time. She demonstrates decr stre ngth,balance,endurance and incr pain all impacting upon fx'l mobility. Pt responds well to all education given . Anticipate pt will progress well with eventual DC to home when medically ready.. The pt would benefit from skilled therapy services while in the hospital to maximize functional abilities. Discharge Recommendations: Based on the current findings, Anticipated Discharge Disposition: home when medically ready for hospital discharge. Consult Recommendations: No other consults recommended at this time. Equipment needs: No equipment necessary Goals: To be achieved by 03/10/20: 1. Pt. to demonstrate knowledge of safety limitations and precautions and will appropriately requestassistance for functional activities and to mobilize. 2. Pt. to demonstrate understanding of appropriate pacing and spirometry exercises. 3. Pt. to perform bed mobility independently.(Log rolling technique). 4. Pt. to perform all transfers independently using no assistive device. 5. Pt. to ambulate 300+ feet independently using a no assistive device. 6. Pt. to ambulate up/down 3 step/stairs using one hand hold with supervision. . Plan: Therapy Frequency: 2-3 times/wk for therapy including balance training, bed mobility training,gait training, patient/family education, stair training, strengthening and transfer training. Patient/family understand and agree with plan as stated above. 2017 PT Evaluation Code Rationale: ?? Diagnosis & Pertinent Co-Morbidities, personal factors, and present illness affecting Plan ofCare: (see above); Additional personal factors or co- morbidities that impact plan: ?? Total # of Factors: 0 1-2 3+ x ?? Examination of body system impairments, functional limitations and behaviors, and/or participation restrictions. Addressing 1-2 elements Addressing 3 + elements x Addressing 4 + elements ?? Clinical presentation: See assessment above. Stable/Uncomplicated Evolving/Fluctuating Symptoms Unstable/Unpredictable x ?? Clinical decision making of low complexity based on pt's functional performance as outlined in this evaluation. Time IN / OUT: 3717-6804 Total Evaluation Minutes, Physical Therapy: 30 Peyton Mir PT Pager: [phone] Physical Therapy Inpatient Rehabilitation Department Plan of Care - Lisa Walker RN - 02/24/2020 4:34 AM EDT OUTCOME EVALUATION NOTE: OUTCOME SUMMARY: Patient resting between care. Pain well managed with scheduled IV tylenol and epidural. Zofran givenfor nausea, with good effect. Adequate UOP via allen. No BM this shift, is unable to pass flatus. Nooutput from pancreatic stent. Small amount of serosanguinous output from JOSE. J-Tube flushed per orders. NGT on LCWS with small amount of dark brown output. Will continue to monitor. PLAN MOVING FORWARD: Manage pain Monitor drain output Promote ambulation INDIVIDUALIZED FALL PREVENTION INTERVENTIONS: High risk Patient-specific fall risk factors per assessment: [current deficits]: Epidural, pain, drains, generalized weakness, Infusing PIV Assistance [level of assistance required for transfers and ambulation]: Not yet OOB Supervision [direct monitoring required during toileting and ADLs]: Hands on Surveillance [continuous indirect monitoring]: Bed/chair alarm, masimo, hourly rounding, room near unit station, NKE at bedside, yellow fall band on, environmental modifications (clutter-free environment, tubing secured, bed low, lighting adjusted, nonskid socks when OOB, bed wheels locked, call lightwith in reach, upper side rails x2, ID bands on) Patient-specific fall prevention interventions for sensory deficits provided, if applicable: [X] N/A CPG GOAL OUTCOME EVALUATION: Op Note - Carlee Galdamez MD - 02/23/2020 2:30 PM EDT [facility] Operative Note Patient Name: Mary Kay Gonzalez : [id number] MR#: [id number] Case Date: 02/23/2020 Surgeon: Surgeon(s) and Role: * Carlee Galdamez MD - Primary * Jaycee Sweet MD - Resident * Palmer Ledezma MD - Resident 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 The liver was very healthy-appearing. She had a large softball size mass arising from the duodenum but fortunately it was not invasive to the underlying peritoneum/IVC or SMA/portal vein. The Whipple resection was therefore quite straightforward. Her pancreas was completely cikzdc-brisbawse-qygk gland and small duct approximately 1 mm in diameter.We elected to stent the pancreatic anastomosis using an externalized 5 Malaysian pancreatic duct stent which was passed approximately 10 cm down into the pancreatic remnant body and tail. A 19 Malaysian Luly drain was placed in through a right lateral stab incision and passed posterior to the bile duct anastomosis and then anterior to the pancreatic anastomosis. We created an omental pedicle flap from thefalciform ligament and used this to cover the korin hepatis dissection. A 12 Malaysian feeding jejunostomy tube was placed approximately 30 cm downstream from the GJ anastomosis. The GJ anastomosis was anantecolic side to side, stapled, gastrojejunostomy anastomosis along the posterior aspect of the stomach. The pancreatic duct stent was exteriorized through a needle tip incision in the left midabdomen, secured to the skin and then connected to bile bag drainage. Anesthesia: General Estimated Blood Loss: 50 mL Specimens removed during surgery: Order Name Source Comment Collection Info Order Time SPECIMEN TO PATHOLOGY [id number] MALIGNANT GIST OF THE DUODENUM gallbladder excision 02/23/2020 9:25 AM Time specimen removed from patient: 9:25 AM Number of tissue samples (in container) 1 SPECIMEN TO PATHOLOGY [id number] MALIGNANT GIST OF THE DUODENUM common hepatic artery lymph node excision 02/23/2020 9:48 AM Time specimen removed from patient: 9:47 AM Number of tissue samples (in container) 1 PATHOLOGY ORDER UPDATE [id number] 02/23/2020 9:48 AM Additional information: Cancellation Enter requested changes: cancel order eD-H Order Id number [id number] SPECIMEN TO PATHOLOGY *yellow= neck of pancreas--frozen on yellow please Blue= vascular groove Letcher= SMA margin [id number] MALIGNANT GIST OF THE DUODENUM head of pancreas, duodenum, bile duct, gallbladder, antrum resection YES, Please perform frozen section 02/23/2020 10:36 AM Number of tissue samples (in container) 1 Time specimen removed from patient: 10:34 AM Drains: Drain/Device Site 02/23/20 1243 Right lower abdomen collapsible closed device (Active) Drain/Device Site 02/23/20 1307 Left abdomen gravity (Active) Surgical Closure: Primary Closure - skin incision is completely closed without any wires, daisy, drains or other devices Disposition: awakened from anesthesia, extubated and taken to the recovery room in a stable condition, having suffered no apparent untoward event. 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 Procedure Description: Ms. Gonzalez was identified in the preop holding area. She was then taken to OR 19 where an epidural was placed and confirmed with fluoroscopy. She was then transferred to OR 23 was positioned supine on the operating room table. Monitoring lines and Venodyne boots were placed. Heparin was administered subcutaneously and IV antibiotics (Zosyn) were given. General anesthesia was induced and she was intubated without complication. A Allen catheter, NGT and arterial monitoring lines were placed. A formal time out procedure was performed pursuant to and in compliance with the [facility] operative policies. Her abdomen and lower chest were prepped with Chloraprep and draped with Ioban inthe usual sterile fashion. The peritoneal cavity was entered through an upper midline laparotomy incision. The Falciform ligament was dissected off the anterior abdominal wall and the vascular pedicle was preserved intact for use later in the case as an omental pedicle flap. Mario Alberto wound protector was placed and the Queen retractor was placed for optimal exposure. The findings at exploration are noted above. The embryologic plane between the omentum and the anterior leaf of the transverse mesocolon was entered. Dissection was carried distally and proximally to remove the omentum from the transverse colon and to allow the colonic hepatic flexure and right colon to be completely mobilized off the retroperito neum as described by Abigail and Nallely. This maneuver allow the middle colic vein to be nicely identified and dissection carried distally to its insertion with the SMV and gastrocolic trunk. Next, attention was turned to the gastrocolic trunk dissection. Small vessels entering the head/uncinate of the pancreas were ligated across 4-0 silk ties. The right gastroepiploic vein was divided in continuity across 3-0 Silk ties to allow exposure of the infra pancreatic superior mesenteric vein. The venous tributaries were identified. The dissection of the infra pancreatic SMV was performed with direct and careful ligation of individual small venous vessels that entered the SMV. An extended Julianna maneuver was performed to obtain access to the midline retroperitoneal structures. The mass was quite large in the head. There were no pathologic appearing peripancreatic lymph nodes. The duodenum and pancreatic head were elevated off the underlying great vessels with exposure of the infra hepatic inferior vena cava and the suprarenal aorta. The gonadal vessels were identified and preserved. There was no palpable aortocaval lymphadenopathy. Next, we returned to the portal dissection. The lesser omentum was incised and dissection carried toward the portahepatis. The coronary vein was exposed and ligated across 3-0 Silk ties. This allowed the common hepatic artery to come into view. We proceed to completely expose the common hepatic arterywith dissection carried distally to identify the right gastric, GDA and proper hepatic. The right gastric artery was ligated in continuity with 3-0 Silk ties and divided. The GDA was then ligated in continuity with 2-0 Silk ties and an extra 4-0 Prolene suture liagasure on the staying-in side for hemostatic security. With the GDA divided an enlarged but normal appearing hepatic artery lymph node was excised using Harmonic scalpel. This maneuver allowed the underlying portal vein to come into view. The proper hepatic artery and confluence of the right and left hepatic artery were exposed with Bipolar electrocautery and the EnSeal Device. Lymph nodes and tissue were swept downward toward the specimen to effectively skeletonize the korin hepatis. With the hepatic arterial anatomy exposed. A cholecystectomy was performed with top-down technique and the cystic duct CBD confluence was exposed. The common hepatic duct was mobilized and prepared for division. It measured 15 mm in diameter. This was divided with a scissors just at the cystic duct insertion. The bile was cultured. The lumen was visible and contained no evidence of tumor at the mucosa. A bulldog was placed on the proximal hepatic duct. The supra pancreatic portal vein was exposed and mobilized to the level of the neck of thepancreas. The antrum was prepared for division by dividing the omentum toward the distal greater curvature of the stomach using the Enseal Device. The right gastroepiploic artery was isolated and divided across 2-0 Silk ties. The stomach was divided with two firings of the Carrier stapler (green load with SEAM G UARD). The pancreas was prepared for division. Hemostatic 3-0 Silk sutures were placed into the superior and inferior distal margins of the gland. The gland was divided perpendicular to its long axis at the level of the neck with a 10 blade. There was pulsatile bleeding from the hjvzvia-if-fufq of the pancreas. Hemostasis was obtained with needle tip electrocautery. The gland consistency was soft. The pancreatic duct measured 1 mm in size. The lateral aspect of the portal vein was dissected carefully to mobilize the head of the pancreas using bipolar technique. The proximal jejunum was prepared for division. The jejunum was divided using the Carrier stapler (white load). The mesentery from this point to the root of the small bowel mesentery was divided using the Enseal device with 2-0 Silk ties placed on the proximal jejunal mesentery. The proximal jejunum was then advanced retromesenteric into the right upper quadrant. The retroperitoneal vascular dissection was performed next. This was quite difficult due to the large size of the mass but fortunately the mass was not invasive or adherent to the underlying retroperitoneum or adjacent base of the mesenteric vessels. The pancreatic head and uncinate was fromthe superior mesenteric vein and its venous tributaries by sharp dissection. The venous tributaries along the SMV were individually exposed, identified and ligated in continuity across 4-0 Silk ties with care to preserve the first jejunal branch. This maneuver and with medial retraction on the SMV/PV allowed the superior mesenteric artery to be identified and exposed beneath. Dissection was carried along the anterolateral aspect of the SMA. Individual small vessels/tissue were divided with either electrocautery or Enseal device to allow identification of one large inferior pancreaticoduodenal artery. This was individually ligated and divided across 2-0 Silk ties. The remaining retroperitoneal attachments were divided across 2-0 Silk ties and harmonic device. The specimen was removed en bloc and marked on the back table as above. The upper abdomen was irrigated with 2 liters of warm normal saline. Inspection revealed excellent hemostasis. We then set about preparing for the reconstruction phase of operation. The proximal jejunum blind and was then passed beneath the small bowel mesentery, in the defect created where the duodenum used mary alice, as a retro-mesenteric jejunal reconstruction limb. It was found to lie nicely within the right upper quadrant/Franklin's pouch adjacent to both the bile duct in the cut edge of the pancreas. The pancreatic anastomosis was an end-to-side anastomosis as a modified Blumgart pancreaticojejunostomy. Using double armed 2-0 Silk we placed three U-type parenchymal stiches placed down through theanterior aspect of the pancreatic neck and out the posterior aspect. The stich was then passed through the seromuscular jejunum to create a posterior layer and then the stich was passed into the posterior aspect of the pancreatic neck and passed up through the pancreatic parenchyma to create the posterior outer layer. Next a pancreaticojejunostomy foiy-zu-wditbv anastomosis was created. A small entero jonny was created in the jejunum directly opposite the location of the pancreatic duct using needle-tip cautery. The jejunal mucosa was everted out of the enterotomy and then sutured using 6-0 Prolene as a modified Leslie-type stich to allow the mucosa to be exposed. Next, interrupted 5-0 Prolene sutures were used to create the duct to mucosa anastomosis. The posterior row stitches were tied in place. A 5 Fr pediatric feeding tube was selected as a pancreatic duct stent. Using a 12 gauge angiocatheter we created a seromuscular tunnel in the blind jejunal antimesenteric bowel wall to allow the pancreatic duct stent to be placed into the jejunal lumen, out the enterotomy and then the stent was passed down into the pancreatic duct for approximately 10 cm. The stent was secured to the anastomosis using 5-0 Rapide stich. With the anterior outer layer of the duct to mucosa complete we then completed the outer anterior layer by passing the 2-0 silk stiches through the seromuscular jejunum to completethe 'U-stich'. We used a Malaysian Eye needle to pass the other end of the stich as horizontal mattressstich. By tying down the 2-0 Silk U-type stiches we were able to sandwich the pancreatic parenchyma using the jejunal serosa. The biliary anastomosis was an end to side anastomosis performed using interrupted 5-0 PDS suture according to the technique of Fani and Becky. The bile duct lumen measured 10 mm. The foregut reconstruction was a antecolic bwsx-xb-rlsw, Billroth II type, gastrojejunostomy anastomosis. This was accomplished with the Carrier stapler (blue load). The common gastroenterotomy was closed in 2 layers with an inner layer of 3-0 PDS canal stitches. The outer layer was interrupted 3-0 silk Lembert stitches. The anastomosis was found to be widely patent and viable appearing. A 19 Malaysian luly closed suction drain was placed through a separate stab incision in the right abdomen and positioned to lie in the most dependent portion of the abdomen along the right colic gutter lateral to the liver and above gerotas fascia. The preserved pedicled omental flap/falciform ligament was then placed over the GDA and gastric artery stumps in the portal transection bed. The drain was then passed beneath the bile duct anastomosis and then anterior to the omental pedicle flap to lie anterior to the pancreatic anastomosis-effectively draining both bile duct and pancreatic anastomosis. We then placed a 12 Malaysian feeding jejunostomy tube through a needle tip incision in the right midabdomen and using Seldinger technique over a wire with a peel-away sheath placed a 12 Malaysian J-tube down through the abdominal wall, and through a needle tip enterotomy along the antimesenteric aspect of the jejunum and then into the jejunum. We then created a short Witzel tunnel using 3-0 silk Lembert stitches and secured the jejunum to the anterior abdominal wall using 3-0 silk stay stitches. The bulbof the 12 Malaysian J-tube was deliberately removed prior to insertion and therefore the flange was secured to the skin using a 2-0 Prolene drain stitch. Preparations were then made for abdominal closure. Sponge counts were performed and reported to me as correct. The abdomen was irrigated with several liters of warm normal saline. Seprafilm (1 sheet) was placed into the abdomen. The midline incision was closed using two #1 looped PDS sutures. The subcutaneous tissues were irrigated with solution and the skin was closed with Irrisept. The incision wasclosed using 4-0 Monocryl subcuticular stitch. The JOSE was secured in place with 2-0 Prolene and covered with a sterile dressing. The pancreatic duct stent was also secured to the skin with a 2-0 proline drain stitch. The pancreatic duct stent was connected to tubing and then to a bile bag for gravity drainage. The JOSE/Luly drain was connected to bulb suction. Ms. Gonzalez tolerated this procedure exceedingly well. She was extubated in the OR and taken to the recovery room in hemodynamically stable condition. I was present for the procedure from start to finish. Resection variables: Difficulty of dissection: Straight forward Aberrant hepatic or portal anatomy: None Gland texture: Soft Pancreatic duct diameter: 1 mm Reconstruction variables: PJ stent placement: Externalized 5 pancreatic duct stent PJ anastomosis type: Two layered duct to mucosa Gastric reconstruction: Antecolic Billroth II type side to side gastrojejunostomy. JOSE drain placement location: 19 Malaysian Luly drain positioned in Morison's pouch, posterior to the bile duct anastomosis and then anterior to the pancreatic anastomosis draining both anastomoses. Tubes: PD stent to gravity and 12 Malaysian J-tube Times: Case start time: 8:30 AM Specimen out time: 10:15 AM Reconstruction start time: 11 AM Reconstruction finish time: 1215 PM Surgery Stop time: 2 PM Case duration: 5 hours and 30 minutes Infection Bundle used? Yes Pancreas Surgery Infection Bundle: Chlorhexidine shower night before and am of surgery: Yes Chlorhexadine-alcohol skin prep: Yes Preoperative IV antibiotics: Zosyn Redosing antibiotics every 3 hours: Yes Bile duct fluid cultured: Yes Change gloves and new suction and cautery at closure: No Vaycbbgvz-edewtlzvs-zzraflzizw abdominal cavity wash: No Jfotobhkj-xwaatvums-rkmvojsmzf wound wash: Irrisept Attestation: Case Date: 02/23/2020 I was present and I participated during the entire procedure (does not need to include opening and closing). CARLEE GALDAMEZ MD 02/23/2020 documented in this encounter Plan of Treatment Upcoming Encounters Date Type Specialty Care Team Description 02/15/2022 Office Visit Hematology and Oncology Morris Dozier [facility] [place], [place] [address] (Wo rk) documented as of this [...] Procedure Name Priority Date/Time Associated Comments Diagnosis POCT GLUCOSE Routine 03/01/2020 8:03 Results for this AM EDT procedure are i n the results section. HEMOGRAM Routine 03/01/2020 3:54 Results for this AM EDT procedure are i n the results section. DIFFERENTIAL, AUTOMATED Routine 03/01/2020 3:54 R esults for this AM EDT procedure are i n the results section. HC VENIPUNCTURE Routine 03/01/2020 3:54 AM EDT POCT GLUCOSE Routine 03/01/2020 12:28 Results for this AM EDT procedure are i n the results section. POCT GLUCOSE Routine 02/29/2020 7:50 Results for this PM EDT procedure are i n the results section. POCT GLUCOSE Routine 02/29/2020 3:49 Results for this PM EDT procedure are i n the results section. POCT GLUCOSE Routine 02/29/2020 11:47 Results for this AM EDT procedure are i n the results section. POCT GLUCOSE Routine 02/29/2020 7:34 Results for this AM EDT procedure are i n the results section. HEMOGRAM Routine 02/29/2020 1:35 Results for this AM EDT procedure are i n the results section. DIFFERENTIAL, AUTOMATED Routine 02/29/2020 1:35 R esults for this AM EDT procedure are i n the results section. HC CBC,PLT & AUTO DIFF Routine 02/29/2020 1:35 AM EDT HC PHOSPHORUS, SERUM Routine 02/29/2020 1:35 Resu lts for this AM EDT procedure are i n the results section. HC MAGNESIUM, SERUM Routine 02/29/2020 1:35 Resul ts for this AM EDT procedure are i n the results section. BASIC METABOLIC PANEL Routine 02/29/2020 1:35 Res ults for this (NON-FASTING) AM EDT procedure are in the results section. POCT GLUCOSE Routine 02/28/2020 7:40 Results for this PM EDT procedure are i n the results section. POCT GLUCOSE Routine 02/28/2020 4:22 Results for this PM EDT procedure are i n the results section. POCT GLUCOSE Routine 02/28/2020 11:57 Results for this AM EDT procedure are i n the results section. POCT GLUCOSE Routine 02/28/2020 7:56 Results for this AM EDT procedure are i n the results section. HC AMYLASE Routine 02/28/2020 3:25 Results for this AM EDT procedure are i n the results section. POCT GLUCOSE Routine 02/28/2020 3:24 Results for this AM EDT procedure are i n the results section. HEMOGRAM Routine 02/28/2020 1:49 Results for this AM EDT procedure are i n the results section. DIFFERENTIAL, AUTOMATED Routine 02/28/2020 1:49 R esults for this AM EDT procedure are i n the results section. HC CBC,PLT & AUTO DIFF Routine 02/28/2020 1:49 AM EDT HC PHOSPHORUS, SERUM Routine 02/28/2020 1:49 Resu lts for this AM EDT procedure are i n the results section. HC MAGNESIUM, SERUM Routine 02/28/2020 1:49 Resul ts for this AM EDT procedure are i n the results section. AMYLASE Routine 02/28/2020 1:49 Results for this AM EDT procedure are i n the results section. BASIC METABOLIC PANEL Routine 02/28/2020 1:49 Res ults for this (NON-FASTING) AM EDT procedure are in the results section. POCT GLUCOSE Routine 02/28/2020 12:01 Results for this AM EDT procedure are i n the results section. POCT GLUCOSE Routine 02/27/2020 8:45 Results for this PM EDT procedure are i n the results section. POCT GLUCOSE Routine 02/27/2020 4:04 Results for this PM EDT procedure are i n the results section. POCT GLUCOSE Routine 02/27/2020 11:46 Results for this AM EDT procedure are i n the results section. POCT GLUCOSE Routine 02/27/2020 9:41 Results for this AM EDT procedure are i n the results section. POCT GLUCOSE Routine 02/27/2020 4:46 Results for this AM EDT procedure are i n the results section. HC AMYLASE Routine 02/27/2020 2:35 Results for this AM EDT procedure are i n the results section. HEMOGRAM Routine 02/27/2020 2:19 Results for this AM EDT procedure are i n the results section. DIFFERENTIAL, AUTOMATED Routine 02/27/2020 2:19 R esults for this AM EDT procedure are i n the results section. HC VENIPUNCTURE Routine 02/27/2020 2:19 AM EDT HC PHOSPHORUS, SERUM Routine 02/27/2020 2:19 Resu lts for this AM EDT procedure are i n the results section. HC MAGNESIUM, SERUM Routine 02/27/2020 2:19 Resul ts for this AM EDT procedure are i n the results section. HC AMYLASE Routine 02/27/2020 2:19 Results for this AM EDT procedure are i n the results section. BASIC METABOLIC PANEL Routine 02/27/2020 2:19 Res ults for this (NON-FASTING) AM EDT procedure are in the results section. POCT GLUCOSE Routine 02/27/2020 12:21 Results for this AM EDT procedure are i n the results section. POCT GLUCOSE Routine 02/26/2020 8:27 Results for this PM EDT procedure are i n the results section. POCT GLUCOSE Routine 02/26/2020 3:50 Results for this PM EDT procedure are i n the results section. POCT GLUCOSE Routine 02/26/2020 11:42 Results for this AM EDT procedure are i n the results section. POCT GLUCOSE Routine 02/26/2020 7:55 Results for this AM EDT procedure are i n the results section. HC AMYLASE Routine 02/26/2020 6:05 Results for this AM EDT procedure are i n the results section. POCT GLUCOSE Routine 02/26/2020 4:00 Results for this AM EDT procedure are i n the results section. HEMOGRAM Routine 02/26/2020 2:04 Results for this AM EDT procedure are i n the results section. DIFFERENTIAL, AUTOMATED Routine 02/26/2020 2:04 R esults for this AM EDT procedure are i n the results section. HC CBC,PLT & AUTO DIFF Routine 02/26/2020 2:04 AM EDT HC PHOSPHORUS, SERUM Routine 02/26/2020 2:04 Resu lts for this AM EDT procedure are i n the results section. HC MAGNESIUM, SERUM Routine 02/26/2020 2:04 Resul ts for this AM EDT procedure are i n the results section. HC AMYLASE Routine 02/26/2020 2:04 Results for this AM EDT procedure are i n the results section. BASIC METABOLIC PANEL Routine 02/26/2020 2:04 Res ults for this (NON-FASTING) AM EDT procedure are in the results section. POCT GLUCOSE Routine 02/26/2020 12:00 Results for this AM EDT procedure are i n the results section. POCT GLUCOSE Routine 02/25/2020 7:41 Results for this PM EDT procedure are i n the results section. POCT GLUCOSE Routine 02/25/2020 4:24 Results for this PM EDT procedure are i n the results section. POCT GLUCOSE Routine 02/25/2020 11:38 Results for this AM EDT procedure are i n the results section. POCT GLUCOSE Routine 02/25/2020 7:44 Results for this AM EDT procedure are i n the results section. POCT GLUCOSE Routine 02/25/2020 4:42 Results for this AM EDT procedure are i n the results section. HEMOGRAM Routine 02/25/2020 2:39 Results for this AM EDT procedure are i n the results section. DIFFERENTIAL, AUTOMATED Routine 02/25/2020 2:39 R esults for this AM EDT procedure are i n the results section. HC VENIPUNCTURE Routine 02/25/2020 2:39 AM EDT HC PHOSPHORUS, SERUM Routine 02/25/2020 2:39 Resu lts for this AM EDT procedure are i n the results section. HC MAGNESIUM, SERUM Routine 02/25/2020 2:39 Resul ts for this AM EDT procedure are i n the results section. HC AMYLASE Routine 02/25/2020 2:39 Results for this AM EDT procedure are i n the results section. COMPREHENSIVE METABOLIC Routine 02/25/2020 2:39 R esults for this PANEL (NON-FASTING) AM EDT procedur e are in the results section. HC AMYLASE Routine 02/25/2020 1:45 Results for this AM EDT procedure are i n the results section. POCT GLUCOSE Routine 02/24/2020 11:14 Results for this PM EDT procedure are i n the results section. POCT GLUCOSE Routine 02/24/2020 7:42 Results for this PM EDT procedure are i n the results section. POCT GLUCOSE Routine 02/24/2020 5:09 Results for this PM EDT procedure are i n the results section. POCT GLUCOSE Routine 02/24/2020 12:06 Results for this PM EDT procedure are i n the results section. POCT GLUCOSE Routine 02/24/2020 7:49 Results for this AM EDT procedure are i n the results section. HC AMYLASE Routine 02/24/2020 4:17 Results for this AM EDT procedure are i n the results section. POCT GLUCOSE Routine 02/24/2020 4:15 Results for this AM EDT procedure are i n the results section. HEMOGRAM Routine 02/24/2020 1:42 Results for this AM EDT procedure are i n the results section. DIFFERENTIAL, AUTOMATED Routine 02/24/2020 1:42 R esults for this AM EDT procedure are i n the results section. HC VENIPUNCTURE Routine 02/24/2020 1:42 AM EDT HC PHOSPHORUS, SERUM Routine 02/24/2020 1:42 Resu lts for this AM EDT procedure are i n the results section. HC MAGNESIUM, SERUM Routine 02/24/2020 1:42 Resul ts for this AM EDT procedure are i n the results section. HC AMYLASE Routine 02/24/2020 1:42 Results for this AM EDT procedure are i n the results section. COMPREHENSIVE METABOLIC Routine 02/24/2020 1:42 R esults for this PANEL (NON-FASTING) AM EDT procedur e are in the results section. POCT GLUCOSE Routine 02/24/2020 12:34 Results for this AM EDT procedure are i n the results section. POCT GLUCOSE Routine 02/23/2020 6:50 Results for this PM EDT procedure are i n the results section. POCT GLUCOSE Routine 02/23/2020 3:14 Results for this PM EDT procedure are i n the results section. SPECIMEN TO PATHOLOGY STAT 02/23/2020 10:37 Re sults for this AM EDT procedure are i n the results section. SPECIMEN TO PATHOLOGY Routine 02/23/2020 9:49 Res ults for this AM EDT procedure are i n the results section. SURGICAL PATHOLOGY REPORT Routine 02/23/2020 9:47 Results for this AM EDT procedure are i n the results section. ANAEROBIC CULTURE Routine 02/23/2020 9:40 Results for this AM EDT procedure are i n the results section. HC CONC. FOR INFECTIOUS Routine 02/23/2020 9:40 AGENTS AM EDT BODY FLUID CULTURE, AEROBIC Routine 02/23/2020 9:40 Results for this AM EDT procedure are i n the results section. SPECIMEN TO PATHOLOGY Routine 02/23/2020 9:25 Res ults for this AM EDT procedure are i n the results section. BLOOD GAS 2 ARTERIAL Routine 02/23/2020 8:09 Resu lts for this AM EDT procedure are i n the results section. @OMENTAL FLAP, 02/23/2020 7:13 MALIGNANT GIST OF INTRA-ABDOMINAL (WRVU 6.54) AM EDT THE DUODEN[facility] PANCREATIC STENT INSERTION 02/23/2020 7:13 MALIGNANT G IST OF (WRVU 18.28) AM EDT THE DUODENUM @JEJUNOSTOMY TUBE PLACEMENT 02/23/2020 7:13 MALIGNANT GIST OF (WRVU 2.62) AM EDT THE DUODENUM @PANCREATECTOMY, WHIPPLE 02/23/2020 7:13 MALIGNANT GIS T OF TYPE WITH AM EDT THE DUODENUM PANCREATOJEJUNOSTOMY (WRVU 52.79) XR FLUORO NO RAD <1HR - OR Routine 02/23/2020 7:10 Results for this USE AM EDT procedure are i n the results section. ABORH RECHECK STATUS Routine 02/23/2020 6:38 Resu lts for this AM EDT procedure are i n the results section. ABO/RH TYPING Routine 02/23/2020 6:38 Results for this AM EDT procedure are i n the results section. ANTIBODY SCREEN Routine 02/23/2020 6:38 Results f or this AM EDT procedure are i n the results section. HC ANTIBODY Routine 02/23/2020 6:38 DETECTION,CAPTURE-R AM EDT documented in this encounter Results Prealbumin (03/20/2020 1:23 PM EST) P athologist Signature Prealbumin 24 20 - 40 [facility] mg/dL [facility] Comment: Prealbumin levels are generally lower in the pediatric population; adult concentrations are usually attained near puberty. Specimen Anatomical Collection Method Collection Time Receive d Time (Source) Location / / Volume Laterality Blood specimen 03/20/2020 1:23 PM 020 1:58 (specimen) EST PM EST Resulting Agency Comment Spec In Lab Britany Villanueva ANA CHEMISTRY ORDERABLES Performing Organization Address City/State/[place] [address] (ABNORMAL) Comprehensive metabolic panel (non-fasting) (03/20/2020 1:23 PM EST) P athologist Signature Glucose Lvl 96 65 - 199 [facility] mg/dL [facility] Comment: Diabetes: >=200 mg/dL plus symp toms BUN 21 (H) 8 - 18 mg/dL [facility] Creatinine 0.53 (L) 0.70 - 1.20 mg/dL [facility] Sodium 139 135 - 145 mmol/L [facility] Potassium 4.6 3.5 - 5.0 mmol/L [facility] Comment: Please note: ??Patients with WBC >100,00 0 may have falsely elevated Potassium levels. ??For accurate Potassium quantif ication in these patients send serum separator tube (gold top) for subsequent determinations. ??Contact the Clinical Chemistry Laboratory if there are any qu estions. Chloride 102 98 - 107 mmol/L [facility] CO2 28 22 - 31 mmol/L [facility] Anion Gap 9 5 - 15 mmol/L [facility] Calcium 9.4 8.5 - 10.5 mg/dL [facility] Total Protein 6.7 6.1 - 8.0 gm/dL [facility] Albumin 4.3 3.2 - 5.2 gm/dL [facility] AST 25 0 - 30 unit/L [facility] ALT 36 (H) 0 - 30 unit/L [facility] Alk Phos 72 35 - 105 unit/L [facility] Total Bilirubin 0.2 0.2 - 1.3 mg/dL [facility] Estimated GFR 105 >=60 mL/min/1.73 m?? [facility] Comment: The eGFR was calculated using the CKD-EP I equation. As with all creatinine based estimates of kidney function, eGFR values calculated with the CKD-EPI equation are not accurate in patients wi th acute kidney failure, extremes of body mass or the acutely ill. [email or web address] eGFR 122 >=60 mL/min/1.73 m?? [facility] Comment: The eGFR was calculated using the CKD-EP I equation. As with all creatinine based estimates of kidney function, eGFR values calculated with the CKD-EPI equation are not accurate in patients wi th acute kidney failure, extremes of body mass or the acutely ill. [email or web address] Specimen Anatomical Collection Method Collection Time Receive d Time (Source) Location / / Volume Laterality Blood specimen 03/20/2020 1:23 PM 020 1:58 (specimen) EST PM EST Resulting Agency Comment Spec In Lab Britany Villanueva APRN CHEMISTRY ORDERABLES Performing Organization Address City/State/ZIP Code Phon e Number [address] POCT Glucose (03/01/2020 8:03 AM EDT) P athologist Signature POC Glucose 134 65 - 199 [facility] mg/dL [facility] Comment: Supplemental ranges: <140 mg/dL before meals <180 mg/dL all other times of the day Specimen Anatomical Collection Method Collection Time Receive d Time (Source) Location / / Volume Laterality Blood specimen 03/01/2020 8:03 AM 020 8:03 (specimen) EDT AM EDT Carlee Galdamez MD POINT OF CARE TEST ORDERABLE S Performing Organization Address City/State/ZIP Code Phon e Number [address] (ABNORMAL) Differential, Automated (03/01/2020 3:54 AM EDT) Patholo gist Method Time Signature Neutrophils % 71.7 % [facility] Neutr Abs (ANC) 7.13 (H) 1.70 - [facility] 6.10 [facility] x10(3)/[facility] L LABORATORY Lymphocytes % 17.1 % [facility] Lymphocytes Abs 1.7 0.9 - 3.2 [facility] x10(3)/[facility] LABORATORY Monocytes % 9.0 % [facility] Monocyte Abs 0.9 0.3 - 0.9 [facility] x10(3)/[facility] LABORATORY Eosinophils % 1.4 % [facility] Eosinophils Abs 0.1 0.0 - 0.4 [facility] x10(3)/[facility] LABORATORY Basophils % 0.3 % [facility] Basophils Abs 0.0 0.0 - 0.1 [facility] x10(3)/[facility] LABORATORY Immature Gran % 0.50 % [facility] Comment: Immature granulocytes(IG's)percentage an d absolute count will include metamyelocytes, myelocytes, and promyelo cytes. Blood smears from CBCs yielding IG's will be scanned manually for concor dance. If this scan disagrees with the automated IG or if promyelocytes are not ed, a manual differential will be performed. Teresa Gran Abs 0.05 (H) 0.00 - 0.04 x10(3)/[facility] LABORATORY Specimen Anatomical Collection Method Collection Time Receive d Time (Source) Location / / Volume Laterality Blood specimen 03/01/2020 3:54 AM 020 4:05 (specimen) EDT AM EDT Resulting Agency Comment Spec In Lab Jaycee Sweet MD HEMATOLOGY ORDERABLES Performing Organization Address City/State/[place] [address] (ABNORMAL) Hemogram (03/01/2020 3:54 AM EDT) Analysis Performed At Patho logist Time Signature WBC 9.9 (H) 4.0 - 9.5 [facility] x10(3)/[facility] LABORATORY RBC 4.34 4.00 - [facility] 5.21 [facility] x10(6)/[facility] LABORATORY Hemoglobin 11.8 11.7 - [facility] 15.5 gm/dL [facility] LABORATORY Hematocrit 36.3 35.7 - [place] 45.8 % [facility] LABORATORY MCV 83.6 82.6 - [place] 94.4 [facility] LABORATORY MCH 27.2 27.1 - [place] 32.0 pg [facility] LABORATORY MCHC 32.5 31.7 - [place] 35.0 gm/dL [facility] LABORATORY Platelets 379 (H) 145 - 357 [place] x10(3)/[facility] LABORATORY RDWSD 59.3 (H) 37.0 - [place] 46.0 [facility] LABORATORY RDWCV 19.4 (H) 11.5 - [place] 14.1 % [facility] LABORATORY MPV 9.3 7.6 - 12.9 [place] [facility] LABORATORY nRBC % Auto 0.0 % [facility] nRBC Abs Auto 0.000 0.000 - [place] 0.000 [facility] x10(3)/[facility] LABORATORY Specimen Anatomical Collection Method Collection Time Receive d Time (Source) Location / / Volume Laterality Blood specimen 03/01/2020 3:54 AM 020 4:05 (specimen) EDT AM EDT Resulting Agency Comment Spec In Lab Jaycee Sweet MD HEMATOLOGY ORDERABLES Performing Organization Address City/State/ZIP Code Phon e Number [address] POCT Glucose (03/01/2020 12:28 AM EDT) P athologist Signature POC Glucose 121 65 - 199 [facility] mg/dL [facility] LAB[facility]ORY Comment: Supplemental ranges: <140 mg/dL before meals <180 mg/dL all other times of the day Specimen Anatomical Collection Method Collection Time Receive d Time (Source) Location / / Volume Laterality Blood specimen 03/01/2020 12:28 0 (specimen) AM EDT 12:28 AM EDT Carlee Galdamez MD POINT OF CARE TEST ORDERABLE S Performing Organization Address City/State/ZIP Code Phon e Number [address] POCT Glucose (02/29/2020 7:50 PM EDT) athologist Signature POC Glucose 122 65 - 199 [place] mg/dL [facility] Comment: Supplemental ranges: <140 mg/dL before meals <180 mg/dL all other times of the day Specimen Anatomical Collection Method Collection Time Receive d Time (Source) Location / / Volume Laterality Blood specimen 02/29/2020 7:50 PM 020 7:50 (specimen) EDT PM EDT Carlee Galdamez MD POINT OF CARE TEST ORDERABLE S Performing Organization Address City/State/ZIP Code Phon e Number [address] POCT Glucose (02/29/2020 3:49 PM EDT) athologist Signature POC Glucose 110 65 - 199 [place] mg/dL [facility]ORY Comment: Supplemental ranges: <140 mg/dL before meals <180 mg/dL all other times of the day Specimen Anatomical Collection Method Collection Time Receive d Time (Source) Location / / Volume Laterality Blood specimen 02/29/2020 3:49 PM 020 3:49 (specimen) EDT PM EDT Carlee Galdamez MD POINT OF CARE TEST ORDERABLE S Performing Organization Address City/State/ZIP Code Phon e Number [address] POCT Glucose (02/29/2020 11:47 AM EDT) athologist Signature POC Glucose 105 65 - 199 [place] mg/dL [facility]ORY Comment: Supplemental ranges: <140 mg/dL before meals <180 mg/dL all other times of the day Specimen Anatomical Collection Method Collection Time Receive d Time (Source) Location / / Volume Laterality Blood specimen 02/29/2020 11:47 0 (specimen) AM EDT 11:47 AM EDT Carlee Galdamez MD POINT OF CARE TEST ORDERABLE S Performing Organization Address City/State/ZIP Code Phon e Number [address] POCT Glucose (02/29/2020 7:34 AM EDT) P athologist Signature POC Glucose 124 65 - 199 [facility] mg/dL [facility]ORY Comment: Supplemental ranges: <140 mg/dL before meals <180 mg/dL all other times of the day Specimen Anatomical Collection Method Collection Time Receive d Time (Source) Location / / Volume Laterality Blood specimen 02/29/2020 7:34 AM 020 7:34 (specimen) EDT AM EDT Carlee Galdamez MD POINT OF CARE TEST ORDERABLE S Performing Organization Address City/State/[place] [address] (ABNORMAL) Differential, Automated (02/29/2020 1:35 AM EDT) Patholo gist Method Time Signature Neutrophils % 80.3 % [facility] Neutr Abs (ANC) 6.64 (H) 1.70 - [facility] 6.10 [facility] x10(3)/[facility] LABORATORY Lymphocytes % 10.5 % [facility] Lymphocytes Abs 0.9 0.9 - 3.2 [facility] x10(3)/[facility] LABORATORY Monocytes % 7.4 % [facility] Monocyte Abs 0.6 0.3 - 0.9 [facility] x10(3)/[facility] LABORATORY Eosinophils % 1.1 % [facility] Eosinophils Abs 0.1 0.0 - 0.4 [facility] x10(3)/[facility] LABORATORY Basophils % 0.2 % [facility] Basophils Abs 0.0 0.0 - 0.1 [facility] x10(3)/[facility] LABORATORY Immature Gran % 0.50 % [facility] Comment: Immature granulocytes(IG's)percentage an d absolute count will include metamyelocytes, myelocytes, and promyelo cytes. Blood smears from CBCs yielding IG's will be scanned manually for concor dance. If this scan disagrees with the automated IG or if promyelocytes are not ed, a manual differential will be performed. Teresa Gran Abs 0.04 0.00 - 0.04 x10(3)/[facility] LABORATORY Specimen Anatomical Collection Method Collection Time Receive d Time (Source) Location / / Volume Laterality Blood specimen 02/29/2020 1:35 AM 020 1:56 (specimen) EDT AM EDT Resulting Agency Comment Spec In Lab Jaycee Sweet MD HEMATOLOGY ORDERABLES Performing Organization Address City/State/[place] [address] (ABNORMAL) Hemogram (02/29/2020 1:35 AM EDT) Analysis Performed At Patho logist Time Signature WBC 8.3 4.0 - 9.5 [facility] x10(3)/[facility] LABORATORY RBC 4.09 4.00 [facility] 5[facility]21 [facility] x10(6)/[facility] LABORATORY Hemoglobin 11.6 (L) 11.7 - [facility] 15.5 gm/dL [facility]ATORY Hematocrit 34.3 (L) 35.7 - [facility] 45.8 % [facility] LAB[facility]ATORY MCV 83.9 82.6 - [facility] 94.4 [facility] LABORATORY MCH 28.4 27.1 - [facility] [place] 32.0 pg [facility] LABORATORY MCHC 33.8 31.7 - [facility] 35.0 gm/dL [facility] LABORATORY Platelets 342 145 - 357 [facility] x10(3)/[facility] RDWSD 59.6 (H) 37.0 - [facility] 46.0 [facility] LABORATORY RDWCV 19.5 (H) 11.5 - [facility] 14.1 % [facility] LABORATORY MPV 9.5 7.6 - 12.9 [facility] LABORATORY nRBC % Auto 0.0 % [facility] nRBC Abs Auto 0.000 0.000 - [facility] 0.000 [facility] x10(3)/[facility] LABORATORY Specimen Anatomical Collection Method Collection Time Receive d Time (Source) Location / / Volume Laterality Blood specimen 02/29/2020 1:35 AM 020 1:56 (specimen) EDT AM EDT Resulting Agency Comment Spec In Lab Jaycee Sweet MD HEMATOLOGY ORDERABLES Performing Organization Address City/State/[place] [address] (ABNORMAL) Basic Metabolic Panel (non-fasting) (02/29/2020 1:35 AM EDT) P athologist Signature Glucose Lvl 131 65 - 199 [facility] mg/dL [facility] LAB[facility]ATORY Comment: Diabetes: >=200 mg/dL plus symp toms BUN 9 8 - 18 mg/dL [facility] Comment: rkkesult rechecked- Creatinine 0.26 (L) 0.70 - 1.20 mg/dL [facility] LABORATORY Sodium 142 135 - 145 mmol/L [facility] LAB[facility]ORY Potassium 4.1 3.5 - 5.0 mmol/L [facility] Comment: Please note: ??Patients with WBC >100,00 0 may have falsely elevated Potassium levels. ??For accurate Potassium quantif ication in these patients send serum separator tube (gold top) for subsequent determinations. ??Contact the Clinical Chemistry Laboratory if there are any qu estions. Chloride 107 98 - 107 mmol/L [facility] CO2 26 22 - 31 mmol/L [facility] Anion Gap 9 5 - 15 mmol/L [facility] Calcium 8.4 (L) 8.5 - 10.5 mg/dL [facility] Estimated GFR 133 >=60 mL/min/1.73 m?? [facility] Comment: The eGFR was calculated using the CKD-EP I equation. As with all creatinine based estimates of kidney function, eGFR values calculated with the CKD-EPI equation are not accurate in patients wi th acute kidney failure, extremes of body mass or the acutely ill. [email or web address] eGFR 154 >=60 mL/min/1.73 m?? [facility] Comment: The eGFR was calculated using the CKD-EP I equation. As with all creatinine based estimates of kidney function, eGFR values calculated with the CKD-EPI equation are not accurate in patients wi th acute kidney failure, extremes of body mass or the acutely ill. [email or web address] Specimen Anatomical Collection Method Collection Time Receive d Time (Source) Location / / Volume Laterality Blood specimen 02/29/2020 1:35 AM 020 1:56 (specimen) EDT AM EDT Resulting Agency Comment Spec In Lab Britany Villanueva APRN CHEMISTRY ORDERABLES Performing Organization Address City/[facility]/ZIP Code Phon e Number [address] Magnesium (02/29/2020 1:35 AM EDT) athologist Signature Magnesium 0.79 0.69 - 1.07 [facility]/L [facility] Specimen Anatomical Collection Method Collection Time Receive d Time (Source) Location / / Volume Laterality Blood specimen 02/29/2020 1:35 AM 020 1:56 (specimen) EDT AM EDT Resulting Agency Comment Spec In Lab Carlee Galdamez MD CHEMISTRY ORDERABLES Performing Organization Address City/[facility]/ZIP Code Phon e Number [address] Phosphorus (02/29/2020 1:35 AM EDT) athologist Signature Phosphorus 3.6 2.5 - 4.5 [facility] [place] mg/dL [facility] LABORATORY Specimen Anatomical Collection Method Collection Time Receive d Time (Source) Location / / Volume Laterality Blood specimen 02/29/2020 1:35 AM 020 1:56 (specimen) EDT AM EDT Resulting Agency Comment Spec In Lab Carlee Galdamez MD CHEMISTRY ORDERABLES Performing Organization Address City/State/ZIP Code Phon e Number [address] POCT Glucose (02/28/2020 7:40 PM EDT) P athologist Signature POC Glucose 123 65 - 199 [facility] mg/dL [facility] Comment: Supplemental ranges: <140 mg/dL before meals <180 mg/dL all other times of the day Specimen Anatomical Collection Method Collection Time Receive d Time (Source) Location / / Volume Laterality Blood specimen 02/28/2020 7:40 PM 020 7:40 (specimen) EDT PM EDT Carlee Galdamez MD POINT OF CARE TEST ORDERABLE S Performing Organization Address City/State/[place] [address] POCT Glucose (02/28/2020 4:22 PM EDT) athologist Signature POC Glucose 97 65 - 199 [place] mg/dL [facility] Comment: Supplemental ranges: <140 mg/dL before meals <180 mg/dL all other times of the day Specimen Anatomical Collection Method Collection Time Receive d Time (Source) Location / / Volume Laterality Blood specimen 02/28/2020 4:22 PM 020 4:22 (specimen) EDT PM EDT Carlee Galdamez MD POINT OF CARE TEST ORDERABLE S Performing Organization Address City/State/[place] [address] POCT Glucose (02/28/2020 11:57 AM EDT) athologist Signature POC Glucose 104 65 - 199 [place] mg/dL [facility] Comment: Supplemental ranges: <140 mg/dL before meals <180 mg/dL all other times of the day Specimen Anatomical Collection Method Collection Time Receive d Time (Source) Location / / Volume Laterality Blood specimen 02/28/2020 11:57 0 (specimen) AM EDT 11:57 AM EDT Carlee Galdamez MD POINT OF CARE TEST ORDERABLE S Performing Organization Address City/State/[place] [address] POCT Glucose (02/28/2020 7:56 AM EDT) athologist Signature POC Glucose 102 65 - 199 [place] mg/dL [facility] Comment: Supplemental ranges: <140 mg/dL before meals <180 mg/dL all other times of the day Specimen Anatomical Collection Method Collection Time Receive d Time (Source) Location / / Volume Laterality Blood specimen 02/28/2020 7:56 AM 020 7:56 (specimen) EDT AM EDT Carlee Galdamez MD POINT OF CARE TEST ORDERABLE S Performing Organization Address City/[facility]/[place] [address] Amylase Level Body Fluid JOSE Drain (02/28/2020 3:25 AM EDT) athologist Signature Amylase, BF 36 unit/L [facility] Comment: No reference range is available for the specimen type submitted. ??The performance of this assay for the submit kisha type has not been validated and results should be interpreted accordingl y and with regard to the patient's clinical status. Amylase BF Type JOSE Drain [facility] Specimen Anatomical Collection Method Collection Time Receive d Time (Source) Location / / Volume Laterality JOSE Drain 02/28/2020 3:25 AM 0 3:37 EDT AM EDT Resulting Agency Comment Spec In Lab Carlee Galdamez MD BODY FLUIDS AND STOOLS ORDER AYDIN Performing Organization Address City/[facility]/ZIP Code Phon e Number [address] POCT Glucose (02/28/2020 3:24 AM EDT) athologist Signature POC Glucose 96 65 - 199 [facility] mg/dL [facility] Comment: Supplemental ranges: <140 mg/dL before meals <180 mg/dL all other times of the day Specimen Anatomical Collection Method Collection Time Receive d Time (Source) Location / / Volume Laterality Blood specimen 02/28/2020 3:24 AM 020 3:24 (specimen) EDT AM EDT Carlee Galdamez MD POINT OF CARE TEST ORDERABLE S Performing Organization Address City/[facility]/ZIP Code Phon e Number [address] Amylase (02/28/2020 1:49 AM EDT) athologist Signature Amylase 32 28 - 100 [facility] unit/L [facility] Specimen Anatomical Collection Method Collection Time Receive d Time (Source) Location / / Volume Laterality Blood specimen Venous Draw / 02/28/2020 1:49 AM 2019 2:02 (specimen) Unknown EDT AM EDT Resulting Agency Comment Spec In Lab Jaycee Sweet MD CHEMISTRY ORDERABLES Performing Organization Address City/State/[place] [address] Differential, Automated (02/28/2020 1:49 AM EDT) P athologist Signature Neutrophils % 62.9 % [facility] Neutr Abs (ANC) 3.92 1.70 - [facility] 6.10 [facility] x10(3)/[facility] LABORATORY Lymphocytes % 20.4 % [facility] Lymphocytes Abs 1.3 0.9 - 3.2 [facility] x10(3)/[facility] LABORATORY Monocytes % 10.3 % [facility] Monocyte Abs 0.6 0.3 - 0.9 [facility] x10(3)/[facility] LABORATORY Eosinophils % 5.6 % [facility] Eosinophils Abs 0.4 0.0 - 0.4 [facility] x10(3)/[facility] LABORATORY Basophils % 0.3 % [facility] Basophils Abs 0.0 0.0 - 0.1 [facility] x10(3)/[facility] LABORATORY Immature Gran % 0.50 % [facility] Comment: Immature granulocytes(IG's)percentage an d absolute count will include metamyelocytes, myelocytes, and promyelo cytes. Blood smears from CBCs yielding IG's will be scanned manually for concor dance. If this scan disagrees with the automated IG or if promyelocytes are not ed, a manual differential will be performed. Teresa Gran Abs 0.03 0.00 - 0.04 x10(3)/[facility] Y [facility] LABORATORY Specimen Anatomical Collection Method Collection Time Receive d Time (Source) Location / / Volume Laterality Blood specimen 02/28/2020 1:49 AM 020 2:02 (specimen) EDT AM EDT Resulting Agency Comment Spec In Lab Jaycee Sweet MD HEMATOLOGY ORDERABLES Performing Organization Address City/State/[place] [address] (ABNORMAL) Hemogram (02/28/2020 1:49 AM EDT) Analysis Performed At Patho logist Time Signature WBC 6.2 4.0 - 9.5 [facility](3[facility] LABORATORY RBC 3.61 (L) 4.00 - [place] 5.21 [facility] x10(6)/[facility] LABORATORY Hemoglobin 10.0 (L) 11.7 - [facility] 15.5 gm/dL [facility] LABORATORY Hematocrit 31.1 (L) 35.7 - [facility] 45.8 % [facility] LABORATORY MCV 86.1 82.6 - [facility] 94.4 [facility] LABORATORY MCH 27.7 27.1 - [place] 32.0 pg [facility] LABORATORY MCHC 32.2 31.7 - [facility] [place] 35.0 gm/dL [facility] LABORATORY Platelets 285 145 - 357 [facility] x10(3)/[facility] LABORATORY RDWSD 61.4 (H) 37.0 - [place] 46.0 [facility] LABORATORY RDWCV 19.8 (H) 11.5 - [facility] [place] 14.1 % [facility] LABORATORY MPV 9.4 7.6 - 12.9 [facility] LABORATORY nRBC % Auto 0.0 % [facility] nRBC Abs Auto 0.000 0.000 - [facility] [place] 0.000 [facility] x10(3)/[facility] LABORATORY Specimen Anatomical Collection Method Collection Time Receive d Time (Source) Location / / Volume Laterality Blood specimen 02/28/2020 1:49 AM 020 2:02 (specimen) EDT AM EDT Resulting Agency Comment Spec In Lab Jaycee Sweet MD HEMATOLOGY ORDERABLES Performing Organization Address City/State/[place] [address] (ABNORMAL) Basic Metabolic Panel (non-fasting) (02/28/2020 1:49 AM EDT) P athologist Signature Glucose Lvl 112 65 - 199 [facility] mg/dL [facility]ORY Comment: Diabetes: >=200 mg/dL plus symp toms BUN 5 (L) 8 - 18 mg/dL [facility] Creatinine 0.35 (L) 0.70 - 1.20 mg/dL [facility] LABOR[facility]ORY Sodium 142 135 - 145 mmol/L [facility] Potassium 3.7 3.5 - 5.0 mmol/L [facility] Comment: Please note: ??Patients with WBC >100,00 0 may have falsely elevated Potassium levels. ??For accurate Potassium quantif ication in these patients send serum separator tube (gold top) for subsequent determinations. ??Contact the Clinical Chemistry Laboratory if there are any qu estions. Chloride 108 (H) 98 - 107 mmol/L [facility] CO2 27 22 - 31 mmol/L [facility] Anion Gap 7 5 - 15 mmol/L [facility] Calcium 8.1 (L) 8.5 - 10.5 mg/dL [facility] Estimated GFR 121 >=60 mL/min/1.73 m?? [facility] Comment: The eGFR was calculated using the CKD-EP I equation. As with all creatinine based estimates of kidney function, eGFR values calculated with the CKD-EPI equation are not accurate in patients wi th acute kidney failure, extremes of body mass or the acutely ill. [email or web address] [email or web address] eGFR 140 >=60 mL/min/1.73 m?? [facility] Comment: The eGFR was calculated using the CKD-EP I equation. As with all creatinine based estimates of kidney function, eGFR values calculated with the CKD-EPI equation are not accurate in patients wi th acute kidney failure, extremes of body mass or the acutely ill. [email or web address] [email or web address] Specimen Anatomical Collection Method Collection Time Receive d Time (Source) Location / / Volume Laterality Blood specimen 02/28/2020 1:49 AM 020 2:02 (specimen) EDT AM EDT Resulting Agency Comment Spec In Lab Britnay Villanueva APRN CHEMISTRY ORDERABLES Performing Organization Address City/State/ZIP Code Phon e Number [address] Magnesium (02/28/2020 1:49 AM EDT) P athologist Signature Magnesium 0.73 0.69 - 1.07 [facility] [place] mmol/L [facility]ORY Specimen Anatomical Collection Method Collection Time Receive d Time (Source) Location / / Volume Laterality Blood specimen 02/28/2020 1:49 AM 020 2:02 (specimen) EDT AM EDT Resulting Agency Comment Spec In Lab Carlee Galdamez MD CHEMISTRY ORDERABLES Performing Organization Address City/[facility]/ZIP Code Phon e Number [address] Phosphorus (02/28/2020 1:49 AM EDT) athologist Signature Phosphorus 3.5 2.5 - 4.5 [place] mg/dL [facility]OR[facility]ORY Specimen Anatomical Collection Method Collection Time Receive d Time (Source) Location / / Volume Laterality Blood specimen 02/28/2020 1:49 AM 020 2:02 (specimen) EDT AM EDT Resulting Agency Comment Spec In Lab Carlee Galdamez MD CHEMISTRY ORDERABLES Performing Organization Address City/[facility]/ZIP Code Phon e Number [address] POCT Glucose (02/28/2020 12:01 AM EDT) athologist Signature POC Glucose 108 65 - 199 [place] mg/dL [facility] Comment: Supplemental ranges: <140 mg/dL before meals <180 mg/dL all other times of the day Specimen Anatomical Collection Method Collection Time Receive d Time (Source) Location / / Volume Laterality Blood specimen 02/28/2020 12:01 0 (specimen) AM EDT 12:01 AM EDT Carlee Galdamez MD POINT OF CARE TEST ORDERABLE S Performing Organization Address City/State/ZIP Code Phon e Number [address] POCT Glucose (02/27/2020 8:45 PM EDT) athologist Signature POC Glucose 104 65 - 199 [facility] [place] mg/dL [facility] Comment: Supplemental ranges: <140 mg/dL before meals <180 mg/dL all other times of the day Specimen Anatomical Collection Method Collection Time Receive d Time (Source) Location / / Volume Laterality Blood specimen 02/27/2020 8:45 PM 020 8:45 (specimen) EDT PM EDT Carlee Galdamez MD POINT OF CARE TEST ORDERABLE S Performing Organization Address City/State/ZIP Code Phon e Number [address] POCT Glucose (02/27/2020 4:04 PM EDT) athologist Signature POC Glucose 85 65 - 199 [facility] [place] mg/dL [facility] Comment: Supplemental ranges: <140 mg/dL before meals <180 mg/dL all other times of the day Specimen Anatomical Collection Method Collection Time Receive d Time (Source) Location / / Volume Laterality Blood specimen 02/27/2020 4:04 PM 020 4:04 (specimen) EDT PM EDT Carlee Galdamez MD POINT OF CARE TEST ORDERABLE S Performing Organization Address City/State/ZIP Code Phon e Number [address] POCT Glucose (02/27/2020 11:46 AM EDT) athologist Signature POC Glucose 103 65 - 199 [place] mg/dL [facility] Comment: Supplemental ranges: <140 mg/dL before meals <180 mg/dL all other times of the day Specimen Anatomical Collection Method Collection Time Receive d Time (Source) Location / / Volume Laterality Blood specimen 02/27/2020 11:46 0 (specimen) AM EDT 11:46 AM EDT Carlee Galdamez MD POINT OF CARE TEST ORDERABLE S Performing Organization Address City/State/[place] [address] POCT Glucose (02/27/2020 9:41 AM EDT) athologist Signature POC Glucose 102 65 - 199 [facility] Comment: Supplemental ranges: <140 mg/dL before meals <180 mg/dL all other times of the day Specimen Anatomical Collection Method Collection Time Receive d Time (Source) Location / / Volume Laterality Blood specimen 02/27/2020 9:41 AM 020 9:41 (specimen) EDT AM EDT Carlee Galdamez MD POINT OF CARE TEST ORDERABLE S Performing Organization Address [facility]/ZIP [facility] Phon e Number [address] POCT Glucose (02/27/2020 4:46 AM EDT) athologist Signature POC Glucose 100 65 - 199 [facility] Comment: Supplemental ranges: <140 mg/dL before meals <180 mg/dL all other times of the day Specimen Anatomical Collection Method Collection Time Receive d Time (Source) Location / / Volume Laterality Blood specimen 02/27/2020 4:46 AM 020 4:46 (specimen) EDT AM EDT Carlee Galdamez MD POINT OF CARE TEST ORDERABLE S Performing Organization Address [facility] [place] [address] Amylase Level Body Fluid JOSE Drain (02/27/2020 2:35 AM EDT) athologist Signature Amylase, BF 53 unit/L [facility] Comment: No reference range is available for the specimen type submitted. ??The performance of this assay for the submit kisha type has not been validated and results should be interpreted accordingl y and with regard to the patient's clinical status. Amylase BF Type JOSE Drain [facility] Specimen Anatomical Collection Method Collection Time Receive d Time (Source) Location / / Volume Laterality JOSE Drain 02/27/2020 2:35 AM 0 3:24 EDT AM EDT Resulting Agency Comment Spec In Lab Carlee Galdamez MD BODY FLUIDS AND STOOLS ORDER AYDIN Performing Organization Address City/State/ZIP Code Phon e Number [place] [id number] [address] Differential, Automated (02/27/2020 2:19 AM EDT) P athologist Signature Neutrophils % 72.0 % [facility] Neutr Abs (ANC) 6.04 1.70 - [facility] 6.10 [facility] x10(3)/[facility] LABORATORY Lymphocytes % 15.6 % [facility] Lymphocytes Abs 1.3 0.9 - 3.2 [facility] x10(3)/[facility] LABORATORY Monocytes % 9.9 % [facility] Monocyte Abs 0.8 0.3 - 0.9 [facility] x10(3)/[facility] LABORATORY Eosinophils % 2.1 % [facility] Eosinophils Abs 0.2 0.0 - 0.4 [facility] x10(3)/[facility] LABORATORY Basophils % 0.2 % [facility] Basophils Abs 0.0 0.0 - 0.1 [facility] x10(3)/[facility] LABORATORY Immature Gran % 0.20 % [facility] Comment: Immature granulocytes(IG's)percentage an d absolute count will include metamyelocytes, myelocytes, and promyelo cytes. Blood smears from CBCs yielding IG's will be scanned manually for concor dance. If this scan disagrees with the automated IG or if promyelocytes are not ed, a manual differential will be performed. Teresa Gran Abs 0.02 0.00 - 0.04 x10(3)/[facility] Specimen Anatomical Collection Method Collection Time Receive d Time (Source) Location / / Volume Laterality Blood specimen 02/27/2020 2:19 AM 020 2:25 (specimen) EDT AM EDT Resulting Agency Comment Spec In Lab Jaycee Sweet MD HEMATOLOGY ORDERABLES Performing Organization Address City/[facility]/[place] [address] (ABNORMAL) Hemogram (02/27/2020 2:19 AM EDT) Analysis Performed At Patho logist Time Signature WBC 8.4 4.0 - 9.5 [facility] x10(3)/[facility] LABORATORY RBC 4.01 4.00 - [place] 5.21 [facility] x10(6)/[facility] LABORATORY Hemoglobin 11.1 (L) 11.7 - [facility] 15.5 gm/dL [facility]OR[facility]ORY Hematocrit 34.5 (L) 35.7 - [place] 45.8 % [facility] LABORATORY MCV 86.0 82.6 - [facility] 94.4 [facility] LABORATORY MCH 27.7 27.1 - [place] 32.0 pg [facility] LABORATORY MCHC 32.2 31.7 - [facility] gm/dL [facility]ORY Platelets 308 145 - 357 [facility] x10(3)/[facility] LABORATORY RDWSD 62.4 (H) 37.0 - [facility] 46.0 [facility] LABORATORY RDWCV 19.8 (H) 11.5 - [facility] 14.1 % [facility] LABORATORY MPV 9.8 7.6 - 12.9 [facility] LABORATORY nRBC % Auto 0.0 % [facility] nRBC Abs Auto 0.000 0.000 - [facility] 0.000 [facility] x10(3)/[facility] LABORATORY Specimen Anatomical Collection Method Collection Time Receive d Time (Source) Location / / Volume Laterality Blood specimen 02/27/2020 2:19 AM 020 2:25 (specimen) EDT AM EDT Resulting Agency Comment Spec In Lab Jaycee Sweet MD HEMATOLOGY ORDERABLES Performing Organization Address City/State/[place] [address] (ABNORMAL) Basic Metabolic Panel (non-fasting) (02/27/2020 2:19 AM EDT) P athologist Signature Glucose Lvl 123 65 - 199 [facility] mg/dL [facility] Comment: Diabetes: >=200 mg/dL plus symp toms BUN 6 (L) 8 - 18 mg/dL [facility] Creatinine 0.36 (L) 0.70 - 1.20 mg/dL [facility] LABOR[facility]ORY Sodium 142 135 - 145 mmol/L [facility] Potassium 4.0 3.5 - 5.0 mmol/L [facility] Comment: Please note: ??Patients with WBC >100,00 0 may have falsely elevated Potassium levels. ??For accurate Potassium quantif ication in these patients send serum separator tube (gold top) for subsequent determinations. ??Contact the Clinical Chemistry Laboratory if there are any qu estions. Chloride 108 (H) 98 - 107 mmol/L [facility] CO2 27 22 - 31 mmol/L [facility] Anion Gap 7 5 - 15 mmol/L [facility] Calcium 8.3 (L) 8.5 - 10.5 mg/dL [facility] Estimated GFR 120 >=60 mL/min/1.73 m?? [facility] Comment: The eGFR was calculated using the CKD-EP I equation. As with all creatinine based estimates of kidney function, eGFR values calculated with the CKD-EPI equation are not accurate in patients wi th acute kidney failure, extremes of body mass or the acutely ill. [email or web address] [email or web address] eGFR 139 >=60 mL/min/1.73 m?? [facility] Comment: The eGFR was calculated using the CKD-EP I equation. As with all creatinine based estimates of kidney function, eGFR values calculated with the CKD-EPI equation are not accurate in patients wi th acute kidney failure, extremes of body mass or the acutely ill. [email or web address] Specimen Anatomical Collection Method Collection Time Receive d Time (Source) Location / / Volume Laterality Blood specimen 02/27/2020 2:19 AM 020 2:26 (specimen) EDT AM EDT Resulting Agency Comment Spec In Lab Britany Villanueva APRN CHEMISTRY ORDERABLES Performing Organization Address City/State/[place] [address] Amylase (02/27/2020 2:19 AM EDT) athologist Signature Amylase 39 28 - 100 [facility]L [facility] LABORATORY Specimen Anatomical Collection Method Collection Time Receive d Time (Source) Location / / Volume Laterality Blood specimen 02/27/2020 2:19 AM 020 2:26 (specimen) EDT AM EDT Resulting Agency Comment Spec In Lab Carlee Galdamez MD CHEMISTRY ORDERABLES Performing Organization Address City/State/ZIP Code Phon e Number [address] Magnesium (02/27/2020 2:19 AM EDT) athologist Signature Magnesium 0.81 0.69 - 1.07 [facility] mmol/L [facility] LABORATORY Specimen Anatomical Collection Method Collection Time Receive d Time (Source) Location / / Volume Laterality Blood specimen 02/27/2020 2:19 AM 020 2:26 (specimen) EDT AM EDT Resulting Agency Comment Spec In Lab Carlee Galdamez MD CHEMISTRY ORDERABLES Performing Organization Address City/State/ZIP Code Phon e Number [address] Phosphorus (02/27/2020 2:19 AM EDT) athologist Signature Phosphorus 2.7 2.5 - 4.5 [facility]/dL [facility] LABORATORY Specimen Anatomical Collection Method Collection Time Receive d Time (Source) Location / / Volume Laterality Blood specimen 02/27/2020 2:19 AM 020 2:26 (specimen) EDT AM EDT Resulting Agency Comment Spec In Lab Carlee Galdamez MD CHEMISTRY ORDERABLES Performing Organization Address City/State/ZIP Code Phon e Number [address] POCT Glucose (02/27/2020 12:21 AM EDT) athologist Signature POC Glucose 98 65 - 199 [facility] mg/dL [facility] LABORATORY Comment: Supplemental ranges: <140 mg/dL before meals <180 mg/dL all other times of the day Specimen Anatomical Collection Method Collection Time Receive d Time (Source) Location / / Volume Laterality Blood specimen 02/27/2020 12:21 0 (specimen) AM EDT 12:21 AM EDT Carlee Galdamez MD POINT OF CARE TEST ORDERABLE S Performing Organization Address City/State/[place] [address] POCT Glucose (02/26/2020 8:27 PM EDT) athologist Signature POC Glucose 106 65 - 199 [place] mg/dL [facility] LABORATORY Comment: Supplemental ranges: <140 mg/dL before meals <180 mg/dL all other times of the day Specimen Anatomical Collection Method Collection Time Receive d Time (Source) Location / / Volume Laterality Blood specimen 02/26/2020 8:27 PM 020 8:27 (specimen) EDT PM EDT Cralee Galdamez MD POINT OF CARE TEST ORDERABLE S Performing Organization Address City/State/ZIP Code Phon e Number [address] POCT Glucose (02/26/2020 3:50 PM EDT) athologist Signature POC Glucose 93 65 - 199 [place] mg/dL [facility] LABORATORY Comment: Supplemental ranges: <140 mg/dL before meals <180 mg/dL all other times of the day Specimen Anatomical Collection Method Collection Time Receive d Time (Source) Location / / Volume Laterality Blood specimen 02/26/2020 3:50 PM 020 3:50 (specimen) EDT PM EDT Carlee Galdamez MD POINT OF CARE TEST ORDERABLE S Performing Organization Address City/State/ZIP Code Phon e Number [address] POCT Glucose (02/26/2020 11:42 AM EDT) athologist Signature POC Glucose 88 65 - 199 [place] mg/dL [facility] LABORATORY Comment: Supplemental ranges: <140 mg/dL before meals <180 mg/dL all other times of the day Specimen Anatomical Collection Method Collection Time Receive d Time (Source) Location / / Volume Laterality Blood specimen 02/26/2020 11:42 0 (specimen) AM EDT 11:42 AM EDT Carlee Galdamez MD POINT OF CARE TEST ORDERABLE S Performing Organization Address City/[facility]/[place] [address] POCT Glucose (02/26/2020 7:55 AM EDT) athologist Signature POC Glucose 125 65 - 199 [facility] mg/dL [facility] LABORATORY Comment: Supplemental ranges: <140 mg/dL before meals <180 mg/dL all other times of the day Specimen Anatomical Collection Method Collection Time Receive d Time (Source) Location / / Volume Laterality Blood specimen 02/26/2020 7:55 AM 020 7:55 (specimen) EDT AM EDT Carlee Galdamez MD POINT OF CARE TEST ORDERABLE S Performing Organization Address [facility] [place] [address] Amylase Level Body Fluid JOSE Drain (02/26/2020 6:05 AM EDT) athologist Signature Amylase, BF 142 unit/L [facility] LABORATORY Comment: No reference range is available for the specimen type submitted. ??The performance of this assay for the submit kisha type has not been validated and results should be interpreted accordingl y and with regard to the patient's clinical status. Amylase BF Type JOSE Drain [facility] LABORATORY Specimen Anatomical Collection Method Collection Time Receive d Time (Source) Location / / Volume Laterality JOSE Drain 02/26/2020 6:05 AM 0 6:27 EDT AM EDT Resulting Agency Comment Spec In Lab Carlee Galdamez MD BODY FLUIDS AND STOOLS ORDER AYDIN Performing Organization Address [facility]/ZIP [facility] Phon e Number [address] POCT Glucose (02/26/2020 4:00 AM EDT) athologist Signature POC Glucose 111 65 - 199 [facility] LABORATORY Comment: Supplemental ranges: <140 mg/dL before meals <180 mg/dL all other times of the day Specimen Anatomical Collection Method Collection Time Receive d Time (Source) Location / / Volume Laterality Blood specimen 02/26/2020 4:00 AM 020 4:00 (specimen) EDT AM EDT Carlee Galdamez MD POINT OF CARE TEST ORDERABLE S Performing Organization Address City/State/[place] [address] (ABNORMAL) Differential, Automated (02/26/2020 2:04 AM EDT) [facility] gist Method Time Signature Neutrophils % 77.2 % [facility] LABORATORY Neutr Abs (ANC) 7.54 (H) 1.70 - [facility] 6.10 [facility] x10(3)/[facility] LABORATORY Lymphocytes % 11.0 % [facility] LABORATORY Lymphocytes Abs 1.1 0.9 - 3.2 [facility] x10(3)/[facility] LABORATORY Monocytes % 10.8 % [facility] LABORATORY Monocyte Abs 1.0 (H) 0.3 - 0.9 [facility] x10(3)/[facility] LABORATORY Eosinophils % 0.5 % [facility] LABORATORY Eosinophils Abs 0.0 0.0 - 0.4 [facility] x10(3)/[facility] LABORATORY Basophils % 0.1 % [facility] LABORATORY Basophils Abs 0.0 0.0 - 0.1 [facility] x10(3)/[facility] LABORATORY Immature Gran % 0.40 % [facility] LABORATORY Comment: Immature granulocytes(IG's)percentage an d absolute count will include metamyelocytes, myelocytes, and promyelo cytes. Blood smears from CBCs yielding IG's will be scanned manually for concor dance. If this scan disagrees with the automated IG or if promyelocytes are not ed, a manual differential will be performed. Teresa Gran Abs 0.04 0.00 - 0.04 x10(3)/[facility] LABORATORY Specimen Anatomical Collection Method Collection Time Receive d Time (Source) Location / / Volume Laterality Blood specimen 02/26/2020 2:04 AM 020 2:29 (specimen) EDT AM EDT Resulting Agency Comment Spec In Lab Jaycee Sweet MD HEMATOLOGY ORDERABLES Performing Organization Address City/[facility]/[place] [address] (ABNORMAL) Hemogram (02/26/2020 2:04 AM EDT) Analysis Performed At Patho logist Time Signature WBC 9.8 (H) 4.0 - 9.5 [facility] LABORATORY RBC 3.76 (L) 4.00 - [place] 5.21 [facility] x10(6)/[facility] LABORATORY Hemoglobin 10.3 (L) 11.7 - [facility] 15.5 gm/dL [facility] LABORATORY Hematocrit 32.6 (L) 35.7 - [facility] 45.8 % [facility] LABORATORY MCV 86.7 82.6 - [facility] 94.4 [facility] LABORATORY MCH 27.4 27.1 - [place] 32.0 pg [facility] LABORATORY MCHC 31.6 (L) 31.7 - [facility] 35.0 gm/dL [facility] LABORATORY Platelets 271 145 - 357 [facility] x10(3)/[facility] LABORATORY RDWSD 62.9 (H) 37.0 - [facility] 46.0 [facility] LABORATORY RDWCV 20.0 (H) 11.5 - [facility] ZOE 14.1 % [facility] LABORATORY MPV 9.9 7.6 - 12.9 [facility] LABORATORY nRBC % Auto 0.0 % [facility] LABORATORY nRBC Abs Auto 0.000 0.000 - [facility] 0.000 [facility] x10(3)/[facility] LABORATORY Specimen Anatomical Collection Method Collection Time Receive d Time (Source) Location / / Volume Laterality Blood specimen 02/26/2020 2:04 AM 020 2:29 (specimen) EDT AM EDT Resulting Agency Comment Spec In Lab Jaycee Sweet MD HEMATOLOGY ORDERABLES Performing Organization Address City/State/[place] [address] (ABNORMAL) Basic Metabolic Panel (non-fasting) (02/26/2020 2:04 AM EDT) athologist Signature Glucose Lvl 114 65 - 199 [facility] mg/dL [facility] LABORATORY Comment: Diabetes: >=200 mg/dL plus symp toms BUN 6 (L) 8 - 18 mg/dL [facility] LABORATORY Creatinine 0.29 (L) 0.70 - 1.20 mg/dL [facility] LABORATORY Sodium 138 135 - 145 mmol/L [facility] LABORATORY Potassium 3.6 3.5 - 5.0 mmol/L [facility] LABORATORY Comment: Please note: ??Patients with WBC >100,00 0 may have falsely elevated Potassium levels. ??For accurate Potassium quantif ication in these patients send serum separator tube (gold top) for subsequent determinations. ??Contact the Clinical Chemistry Laboratory if there are any qu estions. Chloride 106 98 - 107 mmol/L [facility] LABORATORY CO2 27 22 - 31 mmol/L [facility] LABORATORY Anion Gap 5 5 - 15 mmol/L [facility] LABORATORY Calcium 7.7 (L) 8.5 - 10.5 mg/dL [facility] LABORATORY Estimated GFR 129 >=60 mL/min/1.73 m?? [facility] LABORATORY Comment: The eGFR was calculated using the CKD-EP I equation. As with all creatinine based estimates of kidney function, eGFR values calculated with the CKD-EPI equation are not accurate in patients wi th acute kidney failure, extremes of body mass or the acutely ill. [email or web address] eGFR 149 >=60 mL/min/1.73 m?? [facility] LABORATORY Comment: The eGFR was calculated using the CKD-EP I equation. As with all creatinine based estimates of kidney function, eGFR values calculated with the CKD-EPI equation are not accurate in patients wi th acute kidney failure, extremes of body mass or the acutely ill. [email or web address] [email or web address] Specimen Anatomical Collection Method Collection Time Receive d Time (Source) Location / / Volume Laterality Blood specimen 02/26/2020 2:04 AM 020 2:29 (specimen) EDT AM EDT Resulting Agency Comment Spec In Lab Britany Villanueva APRN CHEMISTRY ORDERABLES Performing Organization Address City/[facility]/ZIP Code Phon e Number [address] (ABNORMAL) Amylase (02/26/2020 2:04 AM EDT) P athologist Signature Amylase 103 (H) 28 - 100 [facility]L [facility] LABORATORY Specimen Anatomical Collection Method Collection Time Receive d Time (Source) Location / / Volume Laterality Blood specimen 02/26/2020 2:04 AM 020 2:29 (specimen) EDT AM EDT Resulting Agency Comment Spec In Lab Carlee Galdamez MD CHEMISTRY ORDERABLES Performing Organization Address City/[facility]/[place] [address] Magnesium (02/26/2020 2:04 AM EDT) P athologist Signature Magnesium 0.76 0.69 - 1.07 [facility] mmol/L [facility] LABORATORY Specimen Anatomical Collection Method Collection Time Receive d Time (Source) Location / / Volume Laterality Blood specimen 02/26/2020 2:04 AM 020 2:29 (specimen) EDT AM EDT Resulting Agency Comment Spec In Lab Carlee Galdamez MD CHEMISTRY ORDERABLES Performing Organization Address City/[facility]/[place] [address] (ABNORMAL) Phosphorus (02/26/2020 2:04 AM EDT) P athologist Signature Phosphorus 1.8 (L) 2.5 - 4.5 [facility] mg/dL [facility] LABORATORY Specimen Anatomical Collection Method Collection Time Receive d Time (Source) Location / / Volume Laterality Blood specimen 02/26/2020 2:04 AM 020 2:29 (specimen) EDT AM EDT Resulting Agency Comment Spec In Lab Carlee Galdamez MD CHEMISTRY ORDERABLES Performing Organization Address City/State/ZIP Code Phon e Number [address] POCT Glucose (02/26/2020 12:00 AM EDT) athologist Signature POC Glucose 100 65 - 199 [place] mg/dL [facility] LABORATORY Comment: Supplemental ranges: <140 mg/dL before meals <180 mg/dL all other times of the day Specimen (Source) Anatomical Collection Method Collection Time Re ceived Time Location / / Volume Laterality Blood specimen 02/26/2020 02/26/2020 12 :00 (specimen) AM EDT Carlee Galdamez MD POINT OF CARE TEST ORDERABLE S Performing Organization Address City/[facility]/ZIP Code Phon e Number [address] POCT Glucose (02/25/2020 7:41 PM EDT) athologist Signature POC Glucose 99 65 - 199 [place] mg/dL [facility] LABORATORY Comment: Supplemental ranges: <140 mg/dL before meals <180 mg/dL all other times of the day Specimen Anatomical Collection Method Collection Time Receive d Time (Source) Location / / Volume Laterality Blood specimen 02/25/2020 7:41 PM 020 7:41 (specimen) EDT PM EDT Carlee Galdamez MD POINT OF CARE TEST ORDERABLE S Performing Organization Address City/State/ZIP Code Phon e Number [address] POCT Glucose (02/25/2020 4:24 PM EDT) athologist Signature POC Glucose 113 65 - 199 [place] mg/dL [facility] LABORATORY Comment: Supplemental ranges: <140 mg/dL before meals <180 mg/dL all other times of the day Specimen Anatomical Collection Method Collection Time Receive d Time (Source) Location / / Volume Laterality Blood specimen 02/25/2020 4:24 PM 020 4:24 (specimen) EDT PM EDT Carlee Galdamez MD POINT OF CARE TEST ORDERABLE S Performing Organization Address City/State/[place] [address] POCT Glucose (02/25/2020 11:38 AM EDT) athologist Signature POC Glucose 94 65 - 199 [place] mg/dL [facility] LABORATORY Comment: Supplemental ranges: <140 mg/dL before meals <180 mg/dL all other times of the day Specimen Anatomical Collection Method Collection Time Receive d Time (Source) Location / / Volume Laterality Blood specimen 02/25/2020 11:38 0 (specimen) AM EDT 11:38 AM EDT Carlee Galdamez MD POINT OF CARE TEST ORDERABLE S Performing Organization Address City/[facility]/ZIP Code Phon e Number [address] POCT Glucose (02/25/2020 7:44 AM EDT) athologist Signature POC Glucose 74 65 - 199 [place] mg/dL [facility] LABORATORY Comment: Supplemental ranges: <140 mg/dL before meals <180 mg/dL all other times of the day Specimen Anatomical Collection Method Collection Time Receive d Time (Source) Location / / Volume Laterality Blood specimen 02/25/2020 7:44 AM 020 7:44 (specimen) EDT AM EDT Carlee Galdamez MD POINT OF CARE TEST ORDERABLE S Performing Organization Address City/State/ZIP Code Phon [place] [address] POCT Glucose (02/25/2020 4:42 AM EDT) athologist Signature POC Glucose 77 65 - 199 [place] mg/dL [facility] LABORATORY Comment: Supplemental ranges: <140 mg/dL before meals <180 mg/dL all other times of the day Specimen Anatomical Collection Method Collection Time Receive d Time (Source) Location / / Volume Laterality Blood specimen 02/25/2020 4:42 AM 020 4:42 (specimen) EDT AM EDT Carlee Galdamez MD POINT OF CARE TEST ORDERABLE S Performing Organization Address City/State/[place] [address] [facility] [address] (ABNORMAL) Differential, Automated (02/25/2020 2:39 AM EDT) [facility] Method Time Signature Neutrophils % 83.0 % [facility] LABORATORY Neutr Abs (ANC) 8.68 (H) 1.70 - [facility] 6.10 [facility] x10(3)/[facility] LABORATORY Lymphocytes % 9.7 % [facility] LABORATORY Lymphocytes Abs 1.0 0.9 - 3.2 [facility] x10(3)/[facility] LABORATORY Monocytes % 6.9 % [facility] LABORATORY Monocyte Abs 0.7 0.3 - 0.9 [facility] x10(3)/[facility] LABORATORY Eosinophils % 0.0 % [facility] LABORATORY Eosinophils Abs 0.0 0.0 - 0.4 [facility] x10(3)/[facility] LABORATORY Basophils % 0.1 % [facility] LABORATORY Basophils Abs 0.0 0.0 - 0.1 [facility] x10(3)/[facility] LABORATORY Immature Gran % 0.30 % [facility] LABORATORY Comment: Immature granulocytes(IG's)percentage an d absolute count will include metamyelocytes, myelocytes, and promyelo cytes. Blood smears from CBCs yielding IG's will be scanned manually for concor dance. If this scan disagrees with the automated IG or if promyelocytes are not ed, a manual differential will be performed. Teresa Gran Abs 0.03 0.00 - 0.04 x10(3)/[facility] LABORATORY Specimen Anatomical Collection Method Collection Time Receive d Time (Source) Location / / Volume Laterality Blood specimen 02/25/2020 2:39 AM 020 2:44 (specimen) EDT AM EDT Resulting Agency Comment Spec In Lab Jaycee Sweet MD HEMATOLOGY ORDERABLES Performing Organization Address City/State/[place] [address] (ABNORMAL) Hemogram (02/25/2020 2:39 AM EDT) Analysis Performed At Patho logist Time Signature WBC 10.4 (H) 4.0 - 9.5 [facility](3[facility] LABORATORY RBC 3.59 (L) 4.00 - [place] 5.21 [facility] x10(6)/[facility] LABORATORY Hemoglobin 10.1 (L) 11.7 - [facility] 15.5 gm/dL [facility] LABORATORY Hematocrit 31.2 (L) 35.7 - [place] 45.8 % [facility] LABORATORY MCV 86.9 82.6 - [facility] 94.4 [facility] LABORATORY MCH 28.1 27.1 - [place] 32.0 pg [facility] LABORATORY MCHC 32.4 31.7 - [facility] 35.0 gm/dL [facility] LABORATORY Platelets 255 145 - 357 [facility] x10(3)/[facility] LABORATORY RDWSD 64.9 (H) 37.0 - [place] 46.0 [facility] LABORATORY RDWCV 20.6 (H) 11.5 - [facility] Z[facility] 14.1 % [facility] LABORATORY MPV 10.0 7.6 - 12.9 [facility] LABORATORY nRBC % Auto 0.0 % [facility] LABORATORY nRBC Abs Auto 0.000 0.000 - [place] 0.000 [facility] x10(3)/[facility] LABORATORY Specimen Anatomical Collection Method Collection Time Receive d Time (Source) Location / / Volume Laterality Blood specimen 02/25/2020 2:39 AM 020 2:44 (specimen) EDT AM EDT Resulting Agency Comment Spec In Lab Jaycee Sweet MD HEMATOLOGY ORDERABLES Performing Organization Address City/State/[place] [address] (ABNORMAL) Amylase (02/25/2020 2:39 AM EDT) P athologist Signature Amylase 201 (H) 28 - 100 [facility]L [facility] LABORATORY Specimen Anatomical Collection Method Collection Time Receive d Time (Source) Location / / Volume Laterality Blood specimen 02/25/2020 2:39 AM 020 2:44 (specimen) EDT AM EDT Resulting Agency Comment Spec In Lab Carlee Galdamez MD CHEMISTRY ORDERABLES Performing Organization Address City/[facility]/ZIP Code Phon e Number [address] Magnesium (02/25/2020 2:39 AM EDT) athologist Signature Magnesium 0.78 0.69 - 1.07 [facility] mmol/L [facility] LABORATORY Specimen Anatomical Collection Method Collection Time Receive d Time (Source) Location / / Volume Laterality Blood specimen 02/25/2020 2:39 AM 020 2:44 (specimen) EDT AM EDT Resulting Agency Comment Spec In Lab Carlee Galdamez MD CHEMISTRY ORDERABLES Performing Organization Address City/[facility]/ZIP Code Phon e Number [address] (ABNORMAL) Phosphorus (02/25/2020 2:39 AM EDT) athologist Signature Phosphorus 1.8 (L) 2.5 - 4.5 [facility] mg/dL [facility] LABORATORY Specimen Anatomical Collection Method Collection Time Receive d Time (Source) Location / / Volume Laterality Blood specimen 02/25/2020 2:39 AM 020 2:44 (specimen) EDT AM EDT Resulting Agency Comment Spec In Lab Carlee Galdamez MD CHEMISTRY ORDERABLES Performing Organization Address City/[facility]/ZIP [facility] [place] [address] (ABNORMAL) Comprehensive metabolic panel (non-fasting) (02/25/2020 2:39 AM EDT) athologist Signature Glucose Lvl 89 65 - 199 [facility] mg/dL [facility] LABORATORY Comment: Diabetes: >=200 mg/dL plus symp toms BUN 8 8 - 18 mg/dL [facility] LABORATORY Creatinine 0.30 (L) 0.70 - 1.20 mg/dL [facility] LABORATORY Sodium 136 135 - 145 mmol/L [facility] LABORATORY Potassium 3.6 3.5 - 5.0 mmol/L [facility] LABORATORY Comment: Please note: ??Patients with WBC >100,00 0 may have falsely elevated Potassium levels. ??For accurate Potassium quantif ication in these patients send serum separator tube (gold top) for subsequent determinations. ??Contact the Clinical Chemistry Laboratory if there are any qu estions. Chloride 105 98 - 107 mmol/L [facility] LABORATORY CO2 25 22 - 31 mmol/L [facility] LABORATORY Anion Gap 6 5 - 15 mmol/L [facility] LABORATORY Calcium 7.6 (L) 8.5 - 10.5 mg/dL [facility] [facility] Total Protein 4.9 (L) 6.1 - 8.0 gm/dL [facility] Albumin 2.7 (L) 3.2 - 5.2 gm/dL [facility] AST 89 (H) 0 - 30 unit/L [facility] ALT 109 (H) 0 - 30 unit/L [facility] Alk Phos 40 35 - 105 unit/L [facility] Total Bilirubin 0.4 0.2 - 1.3 mg/dL [facility] Estimated GFR 127 >=60 mL/min/1.73 m?? [facility] Comment: The eGFR was calculated using the CKD-EP I equation. As with all creatinine based estimates of kidney function, eGFR values calculated with the CKD-EPI equation are not accurate in patients wi th acute kidney failure, extremes of body mass or the acutely ill. [email or web address]kf eGFR 147 >=60 mL/min/1.73 m?? [facility] Comment: The eGFR was calculated using the CKD-EP I equation. As with all creatinine based estimates of kidney function, eGFR values calculated with the CKD-EPI equation are not accurate in patients wi th acute kidney failure, extremes of body mass or the acutely ill. [email or web address]SAnkf Specimen Anatomical Collection Method Collection Time Receive d Time (Source) Location / / Volume Laterality Blood specimen 02/25/2020 2:39 AM 020 2:44 (specimen) EDT AM EDT Resulting Agency Comment Spec In Lab Carlee Galdamez MD CHEMISTRY ORDERABLES Performing Organization Address [facility]/[place] [address] Amylase Level Body Fluid JOSE Drain (02/25/2020 1:45 AM EDT) athologist Signature Amylase, BF 419 unit/L [facility] Comment: No reference range is available for the specimen type submitted. ??The performance of this assay for the submit kisha type has not been validated and results should be interpreted accordingl y and with regard to the patient's clinical status. Amylase BF Type JOSE Drain [facility] Specimen Anatomical Collection Method Collection Time Receive d Time (Source) Location / / Volume Laterality JOSE Drain 02/25/2020 1:45 AM 0 5:42 EDT AM EDT Resulting Agency Comment Spec In Lab Carlee Galdamez MD BODY FLUIDS AND STOOLS ORDER AYDIN Performing Organization Address City/[facility]/[place] [address] POCT Glucose (02/24/2020 11:14 PM EDT) athologist Signature POC Glucose 94 65 - 199 [facility] Comment: Supplemental ranges: <140 mg/dL before meals <180 mg/dL all other times of the day Specimen Anatomical Collection Method Collection Time Receive d Time (Source) Location / / Volume Laterality Blood specimen 02/24/2020 11:14 0 (specimen) PM EDT 11:14 PM EDT Carlee Galdamez MD POINT OF CARE TEST ORDERABLE S Performing Organization Address City/[facility]/ZIP Code Phon e Number [address] POCT Glucose (02/24/2020 7:42 PM EDT) athologist Signature POC Glucose 93 65 - 199 [facility]dL [facility] Comment: Supplemental ranges: <140 mg/dL before meals <180 mg/dL all other times of the day Specimen Anatomical Collection Method Collection Time Receive d Time (Source) Location / / Volume Laterality Blood specimen 02/24/2020 7:42 PM 7:42 (specimen) EDT PM EDT Carlee Galdamez MD POINT OF CARE TEST ORDERABLE S Performing Organization Address City/State/ZIP Code Phon e Number [address] POCT Glucose (02/24/2020 5:09 PM EDT) athologist Signature POC Glucose 108 65 - 199 [place] mg/dL [facility] Comment: Supplemental ranges: <140 mg/dL before meals <180 mg/dL all other times of the day Specimen Anatomical Collection Method Collection Time Receive d Time (Source) Location / / Volume Laterality Blood specimen 02/24/2020 5:09 PM 5:09 (specimen) EDT PM EDT Carlee Galdamez MD POINT OF CARE TEST ORDERABLE S Performing Organization Address City/State/ZIP Code Phon e Number [address] POCT Glucose (02/24/2020 12:06 PM EDT) athologist Signature POC Glucose 128 65 - 199 [place] mg/dL [facility] Comment: Supplemental ranges: <140 mg/dL before meals <180 mg/dL all other times of the day Specimen Anatomical Collection Method Collection Time Receive d Time (Source) Location / / Volume Laterality Blood specimen 02/24/2020 12:06 0 (specimen) PM EDT 12:06 PM EDT Carlee Galdamez MD POINT OF CARE TEST ORDERABLE S Performing Organization Address City/State/ZIP Code Phon e Number [address] POCT Glucose (02/24/2020 7:49 AM EDT) athologist Signature POC Glucose 121 65 - 199 [place] mg/dL [facility] Comment: Supplemental ranges: <140 mg/dL before meals <180 mg/dL all other times of the day Specimen Anatomical Collection Method Collection Time Receive d Time (Source) Location / / Volume Laterality Blood specimen 02/24/2020 7:49 AM 020 7:49 (specimen) EDT AM EDT Carlee Galdamez MD POINT OF CARE TEST ORDERABLE S Performing Organization Address City/[facility]/[place] [address] Amylase Level Body Fluid JOSE Drain (02/24/2020 4:17 AM EDT) athologist Signature Amylase, BF 2,878 unit/L [facility] Comment: No reference range is available for the specimen type submitted. ??The performance of this assay for the submit kisha type has not been validated and results should be interpreted accordingl y and with regard to the patient's clinical status. Amylase BF Type JOSE Drain [facility] Specimen Anatomical Collection Method Collection Time Receive d Time (Source) Location / / Volume Laterality JOSE Drain 02/24/2020 4:17 AM 0 5:34 EDT AM EDT Resulting Agency Comment Spec In Lab Carlee Galdamez MD BODY FLUIDS AND STOOLS ORDER AYDIN Performing Organization Address City/[facility]/[place] [address] POCT Glucose (02/24/2020 4:15 AM EDT) athologist [facility] POC Glucose 119 65 - 199 [facility] mg/dL [facility] Comment: Supplemental ranges: <140 mg/dL before meals <180 mg/dL all other times of the day Specimen Anatomical Collection Method Collection Time Receive d Time (Source) Location / / Volume Laterality Blood specimen 02/24/2020 4:15 AM 020 4:15 (specimen) EDT AM EDT Carlee Galdamez MD POINT OF CARE TEST ORDERABLE S Performing Organization Address City/[facility]/[place] [address] (ABNORMAL) Differential, Automated (02/24/2020 1:42 AM EDT) Patholo gist Method Time Signature Neutrophils % 83.8 % [facility] Neutr Abs (ANC) 10.76 (H) 1.70 - [facility] 6.10 [facility] x10(3)/[facility] LABORATORY Lymphocytes % 7.4 % [facility] Lymphocytes Abs 1.0 0.9 - 3.2 [facility] x10(3)/[facility] LABORATORY Monocytes % 8.1 % [facility] Monocyte Abs 1.0 (H) 0.3 - 0.9 [facility] x10(3)/[facility] LABORATORY Eosinophils % 0.0 % [facility] Eosinophils Abs 0.0 0.0 - 0.4 [facility] x10(3)/[facility] LABORATORY Basophils % 0.1 % [facility] Basophils Abs 0.0 0.0 - 0.1 [facility] x10(3)/[facility] LABORATORY Immature Gran % 0.60 % [facility] Comment: Immature granulocytes(IG's)percentage an d absolute count will include metamyelocytes, myelocytes, and promyelo cytes. Blood smears from CBCs yielding IG's will be scanned manually for concor dance. If this scan disagrees with the automated IG or if promyelocytes are not ed, a manual differential will be performed. Teresa Gran Abs 0.08 (H) 0.00 - 0.04 x10(3)/[facility] LABORATORY Specimen Anatomical Collection Method Collection Time Receive d Time (Source) Location / / Volume Laterality Blood specimen 02/24/2020 1:42 AM 020 2:09 (specimen) EDT AM EDT Resulting Agency Comment Spec In Lab Jaycee Sweet MD HEMATOLOGY ORDERABLES Performing Organization Address City/State/[place] [address] (ABNORMAL) Hemogram (02/24/2020 1:42 AM EDT) Analysis Performed At [facility] logist Time Signature WBC 12.8 (H) 4.0 - 9.5 [facility] x10(3)/[facility] LABORATORY RBC 4.06 4.00 - [place] 5.21 [facility] x10(6)/[facility] LABORATORY Hemoglobin 11.1 (L) 11.7 - [place] 15.5 gm/dL [facility]ORY Hematocrit 34.6 (L) 35.7 - [place] 45.8 % [facility] LABORATORY MCV 85.2 82.6 - [facility] 94.4 [facility] LABORATORY MCH 27.3 27.1 - [place] 32.0 pg [facility] LABORATORY MCHC 32.1 31.7 - [place] 35.0 gm/dL [facility]ORY Platelets 302 145 - 357 [facility] x10(3)/[facility] LABORATORY RDWSD 62.9 (H) 37.0 - [place] 46.0 [facility] LABORATORY RDWCV 20.3 (H) 11.5 - [facility] ZOE 14.1 % [facility] LABORATORY MPV 9.7 7.6 - 12.9 [facility] nRBC % Auto 0.0 % [facility] nRBC Abs Auto 0.000 0.000 - [place] 0.000 [facility] x10(3)/[facility] LABORATORY Specimen Anatomical Collection Method Collection Time Receive d Time (Source) Location / / Volume Laterality Blood specimen 02/24/2020 1:42 AM 020 2:09 (specimen) EDT AM EDT Resulting Agency Comment Spec In Lab Jaycee Sweet MD HEMATOLOGY ORDERABLES Performing Organization Address City/[facility]/[place] [address] (ABNORMAL) Amylase (02/24/2020 1:42 AM EDT) P athologist Signature Amylase 401 (H) 28 - 100 [facility] unit/L [facility]ORY Specimen Anatomical Collection Method Collection Time Receive d Time (Source) Location / / Volume Laterality Blood specimen 02/24/2020 1:42 AM 020 2:09 (specimen) EDT AM EDT Resulting Agency Comment Spec In Lab Carlee Galdamez MD CHEMISTRY ORDERABLES Performing Organization Address City/State/ZIP Code Phon e Number [address] Magnesium (02/24/2020 1:42 AM EDT) athologist Signature Magnesium 0.78 0.69 - 1.07 [facility] mmol/L [facility]ORATORY Specimen Anatomical Collection Method Collection Time Receive d Time (Source) Location / / Volume Laterality Blood specimen 02/24/2020 1:42 AM 020 2:09 (specimen) EDT AM EDT Resulting Agency Comment Spec In Lab Carlee Galdamez MD CHEMISTRY ORDERABLES Performing Organization Address City/State/ZIP Code Phon e Number [address] Phosphorus (02/24/2020 1:42 AM EDT) athologist Signature Phosphorus 3.1 2.5 - 4.5 [facility] mg/dL [facility]ORY Specimen Anatomical Collection Method Collection Time Receive d Time (Source) Location / / Volume Laterality Blood specimen 02/24/2020 1:42 AM 020 2:09 (specimen) EDT AM EDT Resulting Agency Comment Spec In Lab Carlee Galdamez MD CHEMISTRY ORDERABLES Performing Organization Address City/State/ZIP Code Phon e Number [address] (ABNORMAL) Comprehensive metabolic panel (non-fasting) (02/24/2020 1:42 AM EDT) athologist [facility] Glucose Lvl 137 65 - 199 [facility] mg/dL [facility]ORY Comment: Diabetes: >=200 mg/dL plus symp toms BUN 12 8 - 18 mg/dL [facility] Creatinine 0.41 (L) 0.70 - 1.20 mg/dL [facility] Sodium 132 (L) 135 - 145 mmol/L [facility] Potassium 4.3 3.5 - 5.0 mmol/L [facility] Comment: Please note: ??Patients with WBC >100,00 0 may have falsely elevated Potassium levels. ??For accurate Potassium quantif ication in these patients send serum separator tube (gold top) for subsequent determinations. ??Contact the Clinical Chemistry Laboratory if there are any qu estions. Chloride 99 98 - 107 mmol/L [facility] CO2 25 22 - 31 mmol/L [facility] Anion Gap 8 5 - 15 mmol/L [facility] Calcium 7.9 (L) 8.5 - 10.5 mg/dL [facility] Total Protein 5.2 (L) 6.1 - 8.0 gm/dL [facility] Albumin 3.0 (L) 3.2 - 5.2 gm/dL [facility] AST 73 (H) 0 - 30 unit/L [facility] ALT 69 (H) 0 - 30 unit/L [facility] Alk Phos 49 35 - 105 unit/L [facility] Total Bilirubin 0.6 0.2 - 1.3 mg/dL [facility] Estimated GFR 115 >=60 mL/min/1.73 m?? [facility] Comment: The eGFR was calculated using the CKD-EP I equation. As with all creatinine based estimates of kidney function, eGFR values calculated with the CKD-EPI equation are not accurate in patients wi th acute kidney failure, extremes of body mass or the acutely ill. [email or web address]SAnkf eGFR 133 >=60 mL/min/1.73 m?? [facility] Comment: The eGFR was calculated using the CKD-EP I equation. As with all creatinine based estimates of kidney function, eGFR values calculated with the CKD-EPI equation are not accurate in patients wi th acute kidney failure, extremes of body mass or the acutely ill. [email or web address]Ankf Specimen Anatomical Collection Method Collection Time Receive d Time (Source) Location / / Volume Laterality Blood specimen 02/24/2020 1:42 AM 020 2:09 (specimen) EDT AM EDT Resulting Agency Comment Spec In Lab Carlee Galdamez MD CHEMISTRY ORDERABLES Performing Organization Address City/State/[place] [address] POCT Glucose (02/24/2020 12:34 AM EDT) athologist Signature POC Glucose 167 65 - 199 [place] mg/dL [facility] Comment: Supplemental ranges: <140 mg/dL before meals <180 mg/dL all other times of the day Specimen Anatomical Collection Method Collection Time Receive d Time (Source) Location / / Volume Laterality Blood specimen 02/24/2020 12:34 0 (specimen) AM EDT 12:34 AM EDT Carlee Galdamez MD POINT OF CARE TEST ORDERABLE S Performing Organization Address City/State/ZIP Code Phon e Number [address] POCT Glucose (02/23/2020 6:50 PM EDT) athologist Signature POC Glucose 145 65 - 199 [place] mg/dL [facility] Comment: Supplemental ranges: <140 mg/dL before meals <180 mg/dL all other times of the day Specimen Anatomical Collection Method Collection Time Receive d Time (Source) Location / / Volume Laterality Blood specimen 02/23/2020 6:50 PM 020 6:50 (specimen) EDT PM EDT Carlee Galdamez MD POINT OF CARE TEST ORDERABLE S Performing Organization Address City/State/ZIP Code Phon e Number [address] POCT Glucose (02/23/2020 3:14 PM EDT) athologist Signature POC Glucose 155 65 - 199 [place] mg/dL [facility] Comment: Supplemental ranges: <140 mg/dL before meals <180 mg/dL all other times of the day Specimen Anatomical Collection Method Collection Time Receive d Time (Source) Location / / Volume Laterality Blood specimen 02/23/2020 3:14 PM 020 3:14 (specimen) EDT PM EDT Carlee Galdamez MD POINT OF CARE TEST ORDERABLE S Performing Organization Address City/State/[place] [address] Specimen to Pathology (02/23/2020 10:37 AM EDT) Specimen Anatomical Collection Method Collection Time Receive d Time (Source) Location / / Volume Laterality AP Specimen 02/23/2020 10:37 02/23/2020 AM EDT 10:37 AM EDT Narrative [facility] - 02/23/2020 10:37 AM EDT Specimen requisition ordered. ??Separate Pathology report to follow Carlee Galdamez MD PATHOLOGY/CYTOLOGY ORDERABLE S Performing Organization Address City/State/ZIP [facility] [place] [address] Specimen to Pathology (02/23/2020 9:49 AM EDT) Specimen Anatomical Collection Method Collection Time Receive d Time (Source) Location / / Volume Laterality AP Specimen 02/23/2020 9:49 AM 0 9:49 EDT AM EDT Narrative [facility] - 02/23/2020 9:49 AM EDT Specimen requisition ordered. ??Separate Pathology report to follow Carlee Galdamez MD PATHOLOGY/CYTOLOGY ORDERABLE S Performing Organization Address City/[facility] Phon e Number [address] Surgical Pathology Report (02/23/2020 9:47 AM EDT) Component Value Ref Test Analysis Performed At [facility] Range Method Time Signature Surgical [id number] ? Location: 2WST; 0208; A [facility] Report The signing pathologist has (i) examined the relevant preparation(s) for the [facility] specimen(s) and (ii) rendered or confirmed the diagnosis(es) . HOSPITAL LABORATORY . ?Surgic al Pathology DIAGNOSIS A. 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 Common hepatic artery lymph node, excision: - One benign lymph node (0/1) - Unremarkable pancreatic tissue Electronically signed by: ??Judah Estrada MD Verified: ??03/01/2020 ?Dermatopathologist, Bone & Soft Tissue Pathologist Performed at: ??-[facility] Dept. of Pathology, [place], [place] SYNOPTIC Clinical ? Preresection Tr eatment: ??Systemic therapy performed (type) - Imatinib Specimen ? Procedure: ??Whipple Tumor ? Tumor Site: ??Small intestine ?Tumor Location: ??Duodenum ? Histologic Type : ??Gastrointestinal stromal tumor - Predominantly spindled ?with focal epithelioid component ? Histologic Grade: ??G1: Low grade; mitotic rate <= 5 / 5 mm2 ? Tumor Size: ??7.3 x 5.4 x 5.2 Centimeters (cm) ? Tumor Focality: ??Unifocal ? Mitotic Rate: ??2 mitoses per 5 mm2 ? Necrosis: ??Present ?Extent: ??5% ? Risk Assessment: ??Cannot be determined ? Treatment Effect: ??Present ?Percentage of Viable Tumor: ??95% Margins ? Margins: ??Uninvolved by GIST ?Distance of Tumor from Closest Margin: ??0 .1 mm ?Closest Margin: ??Inferior soft tissue mar gin Lymph Nodes ? Number of Lymph Nodes Involved: ??0 ? Number of Lymph Nodes Examined: ??23 Pathologic Stage Classification (pTNM, AJCC 8th Edition) ? TNM Descriptors: ??y (post-treatment) ? Primary Tumor (pT): ??pT3 ? Regional Lymph Nodes (pN): ??pN0 Additional Findings ? Additional Find ings: ??Suppurative inflammation with numerous bacterial ?organisms is also identified. The tumor abuts but does not invade the ?pancreas. Special Studies ? Immunohistochemical Studies: ??Not performed ? Molecular Genetic Studies: ??Performed, see sep arate report Tumor Block(s): ??A7-A19 Normal Block(s): ??A20 CAP eCC June 2019 Annual Release . SPECIMEN(S) SUBMITTED A - head of pancreas, duodenum, bile duct, gallb ladder, antrum, resection (1) B - common hepatic artery lymph node, excision (1) CLINICAL INFORMATION Malignant GIST of the duodenum SPECIMEN PROCESSING A - Labeled/Fixative: Head o f pancreas, duodenum, bile duct, gallbladder, antrum, fresh. SPECIMEN DESCRIPTION Resection Specimen: Whipple resection consisting of the head of pancreas, duodenum, distal stomach, gallbladder and attached soft tissue. Integrity: Intact Orientation: Received orient ed with the pancreatic neck margin inked yellow, vascular groove inked blue and SMA (uncinate) margin inked orange. LESION ??Location: Duodenum, proximal to ampulla of Vater ??Size: 7.3 x 5.4 x 5.2 cm ??Description: Soft, white mass with central necrosis ??Relationship to pancreatic duct: Uninvolved ??Relationship to common bile duct: Uninvolved ??Extension: Lesion involve s duodenal wall and extends into the peripancreatic soft tissue with compression of the head of the pancreas. ??Margins: ?? -6 cm from gastric margin. ?? -7 cm from duodenal margin. ?? -1.6 cm from pancreatic neck margin. ?? -1.7 cm from hepatic duct margin. ?? -0.1 cm from vascular groove margin. ?? -0.2 cm from uncinate margin. ?? -0.1 cm from posterior margin. PANCREAS Size: 8.5 x 7.0 x 3.2 cm Parenchyma: Sebastian yellow, lobular Ducts: The common bile duct is patent to the ampulla STOMACH ??Greater Curvature: 10 cm ??Lesser Curvature: 6 cm ??Serosa: [place], smooth and glistening. ??Mucosa: [place]-pink with the usual rugal folds. DUODENUM ??Length/Diameter: 15 x 3 cm ??Serosa: [place], smooth and glistening. ??Mucosa: [place]-red with the usual folds. ??Ampulla of Vater: Unremarkable. GALLBLADDER ??Size: 10.5 x 3.0 x 2.5 cm ??Serosa: [place], smooth and glistening. ??Mucosa: Green-brown, velvety. ??Cystic Lymph Node: Present OTHER Lymph nodes: Multiple lymph nodes are identified. Ink Designation: The posteri or retroperitoneal margin is inked black. The anterior serosal surface is inked red. Sections/Processing: The following tissue is subm itted for frozen section: The pancreatic neck margin is submitted for frozen section, en face, as FS 1. Lumber [employer] sections in 31 cassettes as follows: ?A1: ??FS 1-pancreatic neck margin en face ?A2: ??Cystic duct and cystic lymph node ?A3: ??Gallbladder mucosa ?A4: ??Gastric margin en face . SPECIMEN PROCESSING ?A5: ??Duodenum margin en face ?A6: ??Hepatic duct margin en face ?A7-A9: ??Lesion in relation to small bowel wall ?A10-A11: ??Lesion to serosa (red) ?A12-A13: ??Lesion to vascular groove margin (blue) ?A14-A15: ??Lesion to uncinate margin (orange) ?A16-A17: ??Lesion to inferior soft tissue margin (ant k) ?A18: ??Lesion to posterior margin (black) ?A19: ??Lesion to common bile duct (marked with green i nk) ?A20: ??Ampulla of Vater ?A21: ??Lesion interface with pancreas ?A22: ??Three nodes (pancreatic) ?A23: ??Possible multiple intact nodes (pancreatic) ?A24: ??Three nodes (pancreatic) ?A25: ??Two nodes (pancreatic) ?A26: ??One node (pancreatic) ?A27: ??One node bisected (pancreatic) ?A28: ??One node bisected (pancreatic) ?A29: ??One node quadrisected (pancreatic) ?A30-A31: ??Multiple intact lymph nodes (gastric) B - Labeled/Fixative: Common hepatic artery lymph node, fres h. Quantity/Size: Single, 2.8 x 1.5 x 0.8 cm. Tissue Description: Intact yellow-madrid lymph node Sections/Processing: Trisected and entirely submitted in 2 cassettes labeled B1-B 2. ??sns ?Fro moriah Section FROZEN SECTION DIAGNOSIS AFS1 - Head of pancreas, duodenum, bile duct, ga llbladder, antrum, resection: Pancreatic neck margin, negative for tumor. 02/23/20 11:05 / DAK Electronically signed by: ??Anuradha Culp MD Verified: ??02/23/2020 ?Pathologist Performed at: ??-[facility] Dept. of Pathology, [place], [place] This intraoperative consultation should be interpreted as a preliminary diagnosis pending review of the entire specimen and sp ecial studies, if any. Specimen (Source) Anatomical Collection Method Collection Time Re ceived Time Location / / Volume Laterality 02/23/2020 9:47 AM EDT Carlee Galdamez MD PATHOLOGY/CYTOLOGY ORDERABLE S Performing Organization Address City/State/[place] [address] Anaerobic Culture (02/23/2020 9:40 AM EDT) [facility] gist Method Time Signature Anaerobic No anaerobic [facility] Culture organisms [facility] LABORATORY Specimen Anatomical Collection Method Collection Time Receive d Time (Source) Location / / Volume Laterality Bile specimen 02/23/2020 9:40 AM 02/23/20 20 (specimen) EDT 11:31 AM EDT Comment: BILE DUCT CULTURE Resulting Agency Comment Spec In Lab Carlee Galdamez MD MICROBIOLOGY - GENERAL ORDER AYDIN Performing Organization Address City/[facility]/[place] [address] Body Fluid Culture, Aerobic (02/23/2020 9:40 AM EDT) Component Value Ref Test Analysis Performed At Patholo gist Range Method Time Signature Body Fluid No growth [facility] Culture [facility] LABORATORY Gram Stain Cytocentrifuge Gram Stain performed [facility] No Neutrophils seen. [place] No microorganisms seen. [facility] LABORATORY Specimen Anatomical Collection Method Collection Time Receive d Time (Source) Location / / Volume Laterality Bile specimen 02/23/2020 9:40 AM 02/23/20 20 (specimen) EDT 11:31 AM EDT Comment: BILE DUCT CULTURE Resulting Agency Comment Spec In Lab Carlee Galdamez MD MICROBIOLOGY - GENERAL ORDER AYDIN Performing Organization Address City/[facility]/ZIP Code Phon e Number [address] Specimen to Pathology (02/23/2020 9:25 AM EDT) Specimen Anatomical Collection Method Collection Time Receive d Time (Source) Location / / Volume Laterality AP Specimen 02/23/2020 9:25 AM 0 9:25 EDT AM EDT Narrative [facility] LABORAT ORY - 02/23/2020 9:25 AM EDT Specimen requisition ordered. ??Separate Pathology report to follow Carlee Galdamez MD PATHOLOGY/CYTOLOGY ORDERABLE S Performing Organization Address City/[facility]/[place] [address] (ABNORMAL) BLOOD GAS 2 ARTERIAL (02/23/2020 8:09 AM EDT) Analysis Performed At Patho logist Time Signature pH Art 7.45 7.35 - [facility] 7.45 [facility] LABORATORY pCO2 Art 32 (L) 35 - 45 [facility] LABORATORY pO2 Art 306 (H) 85 - 104 [facility] LABORATORY HCO3 Art 21.4 20.0 - [facility] 26.0 [facility] mmol/L [facility] LABORATORY BE Art -2.7 -3.0 - 3.0 [facility] mmol/L [facility] LABORATORY Hgb Blood Gas 11.1 (L) 11.7 - [facility] 15.5 gm/dL [facility] LABORATORY O2HB Art 99.1 (H) 94.0 - [facility] 97.0 % [facility] LABORATORY COHB Art 0.2 % [facility] LABORATORY Comment: Nonsmokers: 0.5-1.5% COHB Smokers: Variable, but usually less than 10% Toxic: 20-30% COHB Lethal: Greater than 60% COHB METHB Art 0.3 <=1.5 % [facility] LABORATORY Na Whole Blood 134 (L) 135 - 145 mmol/L [facility] LABORATORY K Whole Blood 4.1 3.5 - 5.0 mmol/L [facility] LABORATORY Comment: Please note: Patients with WBC >100,000 may have falsely elevated Potassium levels. Contact the Clinical Chemistry L aboratory if there are any questions. ICa Whole Blood 1.12 (L) 1.15 - 1.33 mmol/L [facility] LABORATORY Comment: Note: ??Total bilirubin higher than 20 m g/dL may lead to falsely low ionized calcium. CL Whole Blood 105 98 - 107 mmol/L [facility] LABORATORY Gluc Whole Bld 102 65 - 199 mg/dL [facility] LABORATORY Comment: Diabetes: >=200 mg/dL plus symp toms. Lactate WB 0.6 0.5 - 2.2 mmol/L [facility] LABORATORY FIO2 Art 50 % [facility] LABORATORY Flow Art 2.0 LPM [facility] LABORATORY PF Ratio Art 612 [facility] LABORATORY Specimen Anatomical Collection Method Collection Time Receive d Time (Source) Location / / Volume Laterality Blood specimen 02/23/2020 8:09 AM 020 8:09 (specimen) EDT AM EDT Carlee Galdamez MD CHEMISTRY ORDERABLES Performing Organization Address City/State/[place] [address] XR Fluoro No Rad <1Hr - OR Use (02/23/2020 7:10 AM EDT) Specimen (Source) Anatomical Location Collection Method / Collectio n Time Received Time / Laterality Volume Narrative [facility] - 02/23/2020 7:41 AM EDT This exam is auto-finalizing. No interpr etation was done. Carlee Galdamez MD IMG FLUORO ORDERABLES Performing Organization Address City/State/ZIP Code Phon e Number RAD RAD [place], [place] ABORH Recheck Status (02/23/2020 6:38 AM EDT) [facility] Method Time Signature ABORH Recheck Order Placed [facility] K Order [facility] LABORATORY ABORH Type Complete [facility] LABORATORY Specimen Anatomical Collection Method Collection Time Receive d Time (Source) Location / / Volume Laterality Blood specimen 02/23/2020 6:38 AM 020 6:39 (specimen) EDT AM EDT Resulting Agency Comment Spec In Lab Nadir Samaniego MD BLOOD BANK ORDERABLES Performing Organization Address City/[facility]/[place] [address] Antibody screen (02/23/2020 6:38 AM EDT) [facility] Method Time Signature Ab Screen Negative [facility] LABORATORY Expires at 02/26/2020 [facility] 2359 on: [facility] LABORATORY Specimen Anatomical Collection Method Collection Time Receive d Time (Source) Location / / Volume Laterality Blood specimen 02/23/2020 6:38 AM 020 6:38 (specimen) EDT AM EDT Resulting Agency Comment Spec In Lab Nadir Samaniego MD BLOOD BANK ORDERABLES Performing Organization Address City/State/[place] [address] ABO/Rh Typing (02/23/2020 6:38 AM EDT) P athologist Signature ABORh Type A Pos [facility] LABORATORY Specimen Anatomical Collection Method Collection Time Receive d Time (Source) Location / / Volume Laterality Blood specimen 02/23/2020 6:38 AM 020 6:38 (specimen) EDT AM EDT Resulting Agency Comment Spec In Lab Nadir Samaniego MD BLOOD BANK ORDERABLES Performing Organization Address City/State/[place] [address] documented in this encounter Visit Diagnoses Diagnosis GIST (gastrointestinal stromal tumor), m alignant - Primary Malignant neoplasm of connective and oth er soft tissue of abdomen Malignant gastrointestinal stromal tumor (GIST) of small intestine Gastroparesis documented in this encounter Admitting Diagnoses Diagnosis GIST (gastrointestinal stromal tumor), m alignant 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 When ordered for pain, acetaminophen should be given even when other ordered pain medications are indicated. , Routine Given 02/23/2020 10:53 PM EDT 1,000 mg 400 mL/hr Given 02/23/2020 3:08 PM EDT 1,000 mg 400 mL/hr acetaminophen (Ofirmev) injection Given 02/25/2020 6:33 AM E DT 1,000 mg 400 mL/hr 1,000 mg 1,000 mg, Intravenous, at 400 mL/hr, EVERY 8 HOURS SCHEDULED, 3 doses, First dose (after last reorder) on Fri02/24/20 at 1400, Last dose on Fri02/25/20 at 0600, Maximum dose of acetaminophen is 4000 mg from all sources in 24 hours. When ordered for pain, acetaminophen should be given even when other ordered pain medications are indicated. , Routine Given 02/24/2020 10:12 PM EDT 1,000 mg 400 mL/hr Given 02/24/2020 2:11 PM EDT 1,000 mg 400 mL/hr acetaminophen (Tylenol) (32.02 mg/mL) oral Given 02/28/2020 5:50 AM EDT 650 mg liquid 650 mg 650 mg, Per J Tube, EVERY 6 HOURS SCHEDULED, First dose on Fri02/25/20 at 1200, Until Discontinued, Maximum dose of acetaminophen is 4000 mg from all sources in 24 hours. When ordered for pain, acetaminophen should be given even when other ordered pain medications are indicated. , Routine Given 02/27/2020 11:59 PM EDT 650 mg Given 02/27/2020 5:17 PM EDT 650 mg acetaminophen (Tylenol) tablet 1,000 mg Given 03/01/2020 11:56 AM EDT 1,000 mg 1,000 mg, Oral, EVERY 6 HOURS SCHEDULED, First dose on Fri02/28/20 at 1200, Until Discontinued, Maximum dose of acetaminophen is 4000 mg from all sources in 24 hours. When ordered for pain, acetaminophen should be given even when other ordered pain medications are indicated. , Routine Given 02/29/2020 1:13 PM EDT 1,000 mg Given 02/28/2020 8:23 PM EDT 1,000 mg dextrose 10% infusion 250 mL, at 1,000 mL/hr, Intravenous, BRENDA RY 30 MIN PRN, Starting on Fri02/23/20 at 1450, Until Fri03/01/20 at 1443, For BG 50-70 mg/d L: Oral treatment preferred:?? If able to drink, give 120 mL Juice or Regular (not diet) soda OR If NPO, give 15 gram glucose 40% oral gel massaged into b uccal mucosa OR if unconscious or uncooperative, give 25 gr am (250 mL) Dextrose 10% IV over 15 minutes per protocol OR, if no IV access, 1 mg G lucagon IM. For BG less than 50 mg/dL: Oral treatment preferred:?? If able to drink, give 240 mL Juice or Regular (not diet) soda OR If NPO, give 30 gram gluco se 40% oral gel massaged in buccal mucosa OR if unconscious or uncooperative, give 25 gram (250 mL) Dextrose 10% IV over 15 minutes per protocol OR, if no IV access, 1 mg Glucago n IM. Recheck BG in 30 minutes. May repeat juice/soda, gel, dex trose or glucagon once per episode. For persistent hypoglycemia, consider longer -acting treatment for the duration of the active insulin. dextrose 5% and sodium chloride New Bag 02/28/2020 7:17 AM EDT 50 mL/hr 50 mL/hr 0.9% with potassium chloride 20 mEq infusion 50 mL/hr, Intravenous, CONTINUOUS, Starting on Fri02/25/20 at 0800, Until Fri02/28/20 at 0819, Warning Vesicant/Irritant Medication Rate/Dose Change 02/27/2020 9:43 AM EDT 50 mL/hr 50 mL/hr New Bag 02/26/2020 7:39 PM EDT 75 mL/hr 75 mL/hr docusate sodium (Colace) (10 mg/mL) oral Given 02/27/2020 8:40 P M EDT 100 mg liquid 100 mg 100 mg, Per J Tube, 2 TIMES DAILY, First dose on Fri02/23/20 at 2100, Until Discontinued, Routine Given 02/27/2020 9:42 AM EDT 100 mg Given 02/26/2020 8:04 PM EDT 100 mg enoxaparin (LOVENOX) injection Given 02/29/2020 9:12 PM EDT 40 m g Abdominal Tissue 40 mg 40 mg, Subcutaneous, NIGHTLY, First dose on Fri02/23/20 at 2100, Until Discontinued, Routine Given 02/28/2020 8:24 PM EDT 40 mg Given 02/27/2020 8:40 PM EDT 40 mg fentaNYL (PF) 50 mcg/mL injection Given 02/23/2020 7:00 AM EDT 25 mcg 12.5-50 mcg, Intravenous, EVERY 1 MIN PRN, Starting on Fri02/23/20 at 0604, Until Fri02/23/20 at 0714, Pain, for epidural placement only, Start dose 25 mcg (Reduce dose to 12.5 mcg if history of sedation sensitivity). Titration dose: 12.5-50 mcg IV (based on patient response) Intravenous (IV), every 3 minutes to maintain procedural pain less than 2 per pain scale. Maximum dose 50mcg per dose, 250mcg/hour., Routine gabapentin (Neurontin) capsule 300 mg Given 02/23/2020 6:27 AM EDT 300 mg 300 mg, Oral, ONCE, 1 dose, On Fri02/23/20 at 0630, Day of Surgery (Day of Procedure), Routine glucagon (human recombinant) injection S olR 1 mg 1 mg, Intramuscular, EVERY 30 MIN PRN, S tarting on Fri02/23/20 at 1450, Until Fri03/01/20 at 1443, Low blood sugar, For BG 50-70 mg/ dL: Oral treatment preferred:?? If able to drink, give 120 mL Juice or Regular (not diet) soda OR If NPO, give 15 gram glucose 40% oral gel massaged into b uccal mucosa OR if unconscious or uncooperative, give 25 gr am (250 mL) Dextrose 10% IV over 15 minutes per protocol OR, if no IV access, 1 mg G lucagon IM. For BG less than 50 mg/dL: Oral treatment preferred:?? If able to drink, give 240 mL Juice or Regular (not diet) soda OR If NPO, give 30 gram gluco se 40% oral gel massaged in buccal mucosa OR if unconscious or uncooperative, give 25 gram (250 mL) Dextrose 10% IV over 15 minutes per protocol OR, if no IV access, 1 mg Glucago n IM. Recheck BG in 30 minutes. May repeat juice/soda, gel, dex trose or glucagon once per episode. For persistent hypoglycemia, consider longer -acting treatment for the duration of the active insulin., Routine glucose (GLUTOSE) 40% oral geL 15-30 g, Buccal, EVERY 30 MIN PRN, Starting on Fri at 1450, Until Fri03/01/20 at 1443, Low blood sugar, For BG 50-70 mg/ dL: Oral treatment preferred:?? If able to drink, give 120 mL Juice or Regular (not diet) soda OR If NPO, give 15 gram glucose 40% oral gel massaged into b uccal mucosa OR if unconscious or uncooperative, give 25 gr am (250 mL) Dextrose 10% IV over 15 minutes per protocol OR, if no IV access, 1 mg G lucagon IM. For BG less than 50 mg/dL: Oral treatment preferred:?? If able to drink, give 240 mL Juice or Regular (not diet) soda OR If NPO, give 30 gram gluco se 40% oral gel massaged in buccal mucosa OR if unconscious or uncooperative, give 25 gram (250 mL) Dextrose 10% IV over 15 minutes per protocol OR, if no IV access, 1 mg Glucago n IM. Recheck BG in 30 minutes. May repeat juice/soda, gel, dex trose or glucagon once per episode. For persistent hypoglycemia, consider longer -acting treatment for the duration of the active insulin. 1 tube contains 15 grams of glucose (n et weight of tube = 37.5 grams., Routine HYDROmorphone (Dilaudid) 10 Rate/Dose Change 02/28/2020 8:54 AM 0.1 mL/hr 0.1 mL/hr mcg/mL, BUpivacaine EDT (Marcaine) 0.1% (0.1 mg/mL) (1/10%) in sodium chloride 0.9% 250 mL epidural 0.1 mL/hr, Epidural, CONTINUOUS + PCEA, Starting on Fri02/23/20 at 0630, Until Fri02/28/20 at 1303, Maximum rate for continuous infusion 14 mL per hour Maximum total epidural rate (continuous and PCEA bolus) is 25 mL per hour, Recovery (Recovery-Hospital Unit), Routine New Bag 02/27/2020 11:08 AM EDT 4 mL/hr 4 mL/hr Rate/Dose Change 02/27/2020 8:31 AM EDT 4 mL/hr 4 mL/hr HYDROmorphone (DILAUDID) injection 0.5 m g Given 02/23/2020 7:11 AM EDT 0.2 mg 0.5 mg, Epidural, ONCE, 1 dose, On Fri02/23/20 at 0630, Routine insulin lispro (HumaLOG) VIAL injection 1-4 Given 02/09 12:39 AM EDT 1 Units Units 1-4 Units, Subcutaneous, EVERY 4 HOURS SCHEDULED, First dose on Fri02/23/20 at 1600, Until Discontinued, CORRECTION BOLUS [1-4 Units] Sensitive Sliding Scale: Correction factor 40 (1 unit of insulin is expected to drop the glucose 40 mg/dL) BG 160 - 200 Give 1 unit BG 201 - 240 Give 2 units BG 241 - 280 Give 3 units BG greater than 280, give 4 units and recheck BG in 2 hours. - If recheck BG is LESS than 280, give no insulin and resume schedule - If recheck BG is GREATER than 280, give 4 units and repeat BG in 2 hours (no more than 3 times) & call for new insulin orders. DO NOT hold if NPO, unless specifically told to do so. Per Blood Glucose Monitoring Policy, re-check a BG of > 240 in 2 hours., Routine insulin lispro (HumaLOG) VIAL injection 1-4 Units 1-4 Units, Subcutaneous, 4 TIMES DAILY B EFORE MEALS & NIGHTLY, First dose (after last modification) on 02/28/20 at 1130, Until Disc ontinued, CORRECTION BOLUS [1-4 Units] Sensitive Sliding Scale: Correctio n factor 40 (1 unit of insulin is expected to drop the glucose 40 mg/dL) BG 160 - 200 Give 1 unit BG 201 - 240 Give 2 units BG 241 - 280 Give 3 uni ts BG greater than 280, give 4 units and recheck BG in 2 hours. - If recheck BG i s LESS than 280, give no insulin and resume schedule - If recheck BG is GREATER than 280, give 4 units and repeat BG in 2 hours (no more than 3 times) & call for new in sulin orders. DO NOT hold if NPO, unless specifically told to do so. Per Blood Gl ucose Monitoring Policy, re-check a BG of > 240 in 2 hours., Routine lactated ringers infusion New Bag 02/23/2020 11:54 AM EDT 1,000 mL, at 100 mL/hr, Intravenous, CONTINUOUS, Starting on Fri02/23/20 at 0630, Until Fri02/23/20 at 1633, Day of Surgery (Day of Procedure) New 02/23/2020 6:25 AM EDT 1,000 mLs 100 mL/hr lactated ringers infusion New Bag 02/23/2020 10:58 PM EDT 1,000 mLs 100 mL/hr 1,000 mL, at 100 mL/hr, Intravenous, CONTINUOUS, Starting on Fri02/23/20 at 1515, Until Fri02/24/20 at 0707, Recovery (Recovery-Hospital Unit) New 02/23/2020 3:02 PM EDT 1,000 mLs 100 mL/hr lidocaine (LIDODERM) 5 % patch 1 patch 1 patch, Transdermal, EVERY 24 HOURS, First dose on 02/24/20 at 0800, Until Discontinued, Apply patch(es) for 12 josi rs, and then remove for 12 hours, Routine lidocaine (LIDODERM) 5 %(700 mg/patch) P atch Removal Transdermal, EVERY 24 HOURS, First dose on Fri 0 at 1915, Until Discontinued, Remove lidocaine 5 %(700 mg/patch) patch [id number] (Creon 24) Given 02/29/2020 3:20 PM E DT 1 capsule 24,000-76,000 -120,000 unit per capsule 1 capsule 1 capsule, Oral, WITH SNACKS, Starting on Fri02/28/20 at 0818, Until Fri03/01/20 at 1443, Routine [id number] DR (Creon 24) Given 03/01/2020 8:18 AM E DT 2 capsules 24,000-76,000 -120,000 unit per capsule 1-2 capsule 1-2 capsule, Oral, 3 TIMES DAILY WITH MEALS, First dose on Fri02/28/20 at 0915, Until Discontinued, Patient to self-determine dose based on amount eaten., Routine Given 02/28/2020 4:23 PM EDT 2 capsules Given 02/28/2020 12:04 PM EDT 1 capsule magnesium sulfate 2 g in sterile water New Bag 02/24/2020 9:21 AM EDT 2 g 25 mL/hr 50 mL 2 g, Intravenous, ONCE, 1 dose, On Fri02/24/20 at 0800, Administer over 120 Minutes magnesium sulfate 2 g in sterile water New Bag 02/25/2020 6:39 AM EDT 2 g 25 mL/hr 50 mL 2 g, Intravenous, ONCE, 1 dose, On Fri02/25/20 at 0700, Administer over 120 Minutes magnesium sulfate 2 g in sterile water New Bag 02/26/2020 8:45 AM EDT 2 g 25 mL/hr 50 mL 2 g, Intravenous, ONCE, 1 dose, On Fri02/26/20 at 0845, Administer over 120 Minutes magnesium sulfate 2 g in sterile water New Bag 02/28/2020 9:20 AM EDT 2 g 25 mL/hr 50 mL 2 g, Intravenous, ONCE, 1 dose, On Fri02/28/20 at 0915, Administer over 120 Minutes metoclopramide (REGLAN) injection 10 mg Given 02/29/2020 10:03 PM EDT 10 mg 10 mg, Intravenous, 4 TIMES DAILY BEFORE MEALS & NIGHTLY, First dose on Fri02/29/20 at 1745, Until Discontinued, Doses greater than 10mg should be diluted into 50ml NS. Given 02/29/2020 5:43 PM EDT 10 mg metoclopramide (Reglan) tablet 10 mg Given 03/01/2020 11:57 AM EDT 10 mg 10 mg, Oral, 4 TIMES DAILY BEFORE MEALS & NIGHTLY, First dose on Fri03/01/20 at 0915, Until Discontinued, GIVE REGARDLESS OF IF EATING OR NOT, STAT Given 03/01/2020 8:27 AM EDT 10 mg midazolam (PF) (VERSED) injection 0.5-2 mg Given 02/23/2020 7:00 AM EDT 1 mg 0.5-2 mg, Intravenous, EVERY 1 MIN PRN, Starting on Fri02/23/20 at 0604, Until Fri02/23/20 at 0714, epidural placement only, Start dose 1 mg (Reduce dose to 0.5 mg if history of sedation sensitivity). Titration dose: 0.5 mg-2 mg IV (based on patient response) Intravenous (IV), every 3 minutes PRN to obtain RASS score of -2. Maximum dose 2 mg per dose, 10 mg/hour., Routine Given 02/23/2020 6:55 AM EDT 1 mg ondansetron (ZOFRAN) injection 4-8 mg Given 02/29/2020 5:30 PM EDT 4 mg 4-8 mg, Intravenous, EVERY 8 HOURS PRN, Starting on Fri02/23/20 at 1832, Until Fri03/01/20 at 1443, Nausea, Vomiting, If multiple antiemetics are ordered, use ondansetron first May repeat times one in 30 minutes if ineffective. Given 02/29/2020 2:18 AM EDT 8 mg Given 02/24/2020 8:38 AM EDT 4 mg pantoprazole (PROTONIX) injection 40 mg Given 02/28/2020 8:24 PM EDT 40 mg 40 mg, Intravenous, 2 TIMES DAILY, First dose on Fri02/23/20 at 2100, Until Discontinued, Reconstitute with 10 mL of normal saline to a concentration of 4 mg/mL and infuse slowly over 2 minutes. , Routine Given 02/28/2020 9:25 AM EDT 40 mg Given 02/27/2020 8:40 PM EDT 40 mg pantoprazole EC (Protonix) tablet 40 mg Given 03/01/2020 8:18 AM EDT 40 mg 40 mg, Oral, 2 TIMES DAILY, First dose on Fri02/29/20 at 0900, Until Discontinued, DO NOT CRUSH OR OPEN, Routine Given 02/29/2020 9:14 PM EDT 40 mg Given 02/29/2020 8:04 AM EDT 40 mg phenol 1.4% (CHLORASEPTIC) spray 1 spray Given 02/26/2020 6:54 AM EDT 1 spray 1 spray, Oral, EVERY 4 HOURS PRN, Starting on 02/26/20 at 0613, Until Fri03/01/20 at 1443, Irritation, Routine piperacillin-tazobactam (ZOSYN) New Bag 02/24/2020 5:37 AM 3.375 g 12.5 mL/hr 3.375 g vial attach to sodium EDT chloride 0.9% 50 mL Mini-Bag Plus 3.375 g, Intravenous, EVERY 8 HOURS, 2 doses, First dose on Fri02/23/20 at 2200, Last dose on Fri02/24/20 at 0600, Administer over 4 Hours, Warning Vesicant/Irritant Medication Do not administer or Y-site with lactated ringers., Recovery (Recovery-Hospital Unit), Indication for (Active or Suspected): Prophylaxis New 02/23/2020 10:54 PM EDT 3.375 g 12.5 mL/hr potassium chloride 10 mEq in 100 mL New Bag 02/25/2020 9:14 AM EDT 10 mEq 100 mL/hr 10 mEq, Intravenous, EVERY 2 HOURS, 2 doses, First dose on Fri02/25/20 at 0700, Last dose on Fri02/25/20 at 0900, Administer over 60 Minutes, Warning Vesicant/Irritant Medication New Bag 02/25/2020 7:00 AM EDT 10 mEq 100 mL/hr potassium phosphate 15 mMol in sodium New Bag 02/25/2020 9:15 AM E DT 15 mmol chloride 0.9% 250 mL 15 mmol, Intravenous, ONCE, 1 dose, On Fri02/25/20 at 0700, Administer over 4 Hours, Administer over 4-6 hours potassium phosphate 15 mMol in sodium New Bag 02/26/2020 10:56 AM EDT 15 mmol chloride 0.9% 250 mL 15 mmol, Intravenous, ONCE, 1 dose, On 02/26/20 at 1030, Administer over 4 Hours, Administer over 4-6 hours prochlorperazine (COMPAZINE) injection 5 mg Given 02/29/2020 7:45 AM EDT 5 mg 5 mg, Intravenous, EVERY 6 HOURS PRN, Starting on Fri02/29/20 at 0716, Until Fri02/29/20 at 1659, Nausea, Vomiting, Routine senna-docusate (Pericolace) 8.6-50 mg pe r tablet 1 tablet 1 tablet, Oral, 2 TIMES DAILY, First dos e (after last modification) on Fri02/29/20 at 2100, Until Discontinued, Routine senna-docusate (Pericolace) 8.6-50 mg per Given 2019 9:30 AM EDT 2 tablets tablet 2 tablet 2 tablet, Oral, 2 TIMES DAILY, First dose on Fri02/28/20 at 0915, Until Discontinued, Routine sennosides (Senokot) (1.76 mg/mL) oral liquid Given 8:40 PM EDT 8.8 mg 8.8 mg 8.8 mg, Per J Tube, 2 TIMES DAILY, First dose on Fri02/23/20 at 2100, Until Discontinued, Routine Given 02/27/2020 9:42 AM EDT 8.8 mg Given 02/26/2020 8:04 PM EDT 8.8 mg sodium chloride 0.9 % (flush) flush 5 mL Given 03/01/2020 8:18 AM EDT 5 mLs 5 mL, Intravenous, 2 TIMES DAILY, First dose on Fri02/23/20 at 2100, Until Discontinued, Recovery (Recovery-Hospital Unit), Routine Given 02/29/2020 9:16 PM EDT 5 mLs Given 02/29/2020 8:04 AM EDT 5 mLs sodium chloride 0.9 % (flush) flush 5-20 mL Given 02/23/2020 8:13 PM EDT 5 mLs 5-20 mL, Intravenous, EVERY 1 MIN PRN, Starting on Fri02/23/20 at 1832, Until Fri03/01/20 at 1443, flush, Flush pertains to all indwelling lines. Flush per protocol found in the job aid using the link provided on this medication record., Recovery (Recovery-Hospital Unit), Routine sodium chloride 0.9% infusion New Bag 02/24/2020 6:45 PM EDT 100 mL/hr 100 mL/hr 100 mL/hr, Intravenous, CONTINUOUS, Starting on [place] 10/15/20 at 0800, Until 02/25/20 at 0709 New Bag 02/24/2020 8:56 AM EDT 100 mL/hr 100 mL/hr traMADoL (Ultram) tablet 50 mg 50 mg, Oral, EVERY 6 HOURS PRN, Starting on Fri at 0719, Until Fri03/01/20 at 1443, Pain, FOR PAIN UNCONTROLLED BY TYLEN OL, Routine tube feeding diet New Bag 02/26/2020 11:46 AM EDT 240 mLs 10 mL/hr 240 mL, Per J Tube, at 10 mL/hr, CONTINUOUS, Starting on 02/26/20 at 0930, Until 02/27/20 at 0907, Administer flushes and check residuals per policy tube feeding diet Rate/Dose Verify 02/28/2020 2:27 AM EDT 30 mL/hr 1,248 mL, Per J Tube, CONTINUOUS, Starting on 02/27/20 at 1015, Until 02/28/20 at 0821, Administer flushes and check residuals per policy New Bag 02/27/2020 5:17 PM EDT 1,248 mLs 20 mL/hr New Bag 02/27/2020 9:43 AM EDT 1,248 mLs 10 mL/hr tube feeding diet Rate/Dose Change 02/29/2020 12:12 AM EDT 52 mL/hr 1,248 mL, Per J Tube, at 52 mL/hr, CONTINUOUS, Starting on 02/28/20 at 0915, Until Tu02/29/20 at 0723, Administer flushes and check residuals per policy Rate/Dose Change 02/28/2020 1:31 PM EDT 40 mL/hr Rate/Dose Change 02/28/2020 9:15 AM EDT 30 mL/hr tube feeding diet New Bag 02/29/2020 5:45 PM EDT 832 mLs 52 mL/hr 832 mL, Per J Tube, at 52 mL/hr, CYCLIC, Starting on Fri02/29/20 at 1600, Until Fri03/01/20 at 1443, Administer flushes and check residuals per policy documented in this encounter Active and Recently Administered Medications Times are shown in EDT. Scheduled Medication Order 02/28/2020 02/29/2020 03/01/2020 acetaminophen (Tylenol) (32.02 mg/mL) oral liquid 650 mg (CANCELED) 0550 (Given - Provider: Lisa Walker, RN) 650 mg, Per J Tube, EVERY 6 HOURS SCHEDU LED, First dose on Fri02/25/20 at 1200, Until Discontinued, Maximum dose of acetaminophen is 4000 mg from all sources in 24 hours. When ordered for pain, acetami nophen should be given even when other o rdered pain medications are indicated. , Routine acetaminophen (Tylenol) tablet 1,000 mg 1204 (Given - Provider: Valeria Sanders RN)3 (Given - Provider: Marjorie Foster, CLARKE) 0200 (Not Given - Provider: Rex Parra RN - Reason: Patient/family refused)0600 (Not Given - Provider: Rex Parra RN - Reason: See comment)1313 (Given - Provider: Sudha Lazcano, CLARKE) 0000 (Not Given - Provider: Alina sutton, CLARKE - Reason: Patient/family refused)0600 (Not Given - Provider: Alina Osman RN - Reason: Patient/family refused)1156 (Given - Provider: Stacie Beatty RN) 1,000 mg, Oral, EVERY 6 HOURS SCHEDULED, First dose on Fri02/28/20 at 1200, Until Discontinued, Maximum dose of acetaminophen is 4000 mg from all sources in 24 hours. When ordered for pain, acetaminoph 1800 (Not Given - Provider: Angely Juarez RN - Reason: Patient/family refused) en should be given even when other order ed pain medications are indicated. , Routine enoxaparin (LOVENOX) injection 40 mg 2023 (Given - Pro vider: Marjorie Foster RN) 2111 (Given - Provider: Alina Osman, CLARKE) 40 mg, Subcutaneous, NIGHTLY, First dose on Fri02/23/20 at 2100, Until Discontinued, Routine insulin lispro (HumaLOG) VIAL injection 1-4 Units(Link ed Group 1) 1158 (Not Given - Provider: Valeria Sanders RN - Reason: Order parameters not met)1630 (Not Given - Provider: Jesse Lizarraga RN - Reason: Order parameters not met) 0730 (Not Given - Provider: Sudha Lazcano RN - Reason: Order parameters not met)1130 (Not Given - Provider: Sudha Lazcano RN - Reason: Order parameters not met) 0730 (Not Given - Provider: Stacie gibbs RN - Reason: Order parameters not met)1130 (Due) 1-4 Units, Subcutaneous, 4 TIMES DAILY B EFORE MEALS & NIGHTLY, First dose (after last modification) on 02/28/20 at 1130, Until Discontinued, CORRECTION BOLUS [1-4 Units] Sensitive Sliding Sc 2100 (Not Given - Provider: Marjorie Foster RN - Reason: Order parameters not met) 1630 (Not Given - Provider: Sudha Lazcano RN - Reason: Order parameters not met)2018 (Not Given - Provider: Alina Osman RN - Reason: Order parameters not met) justyn: Correction factor 40 (1 unit of ins ulin is expected to drop the glucose 40 mg/dL) BG 160 - 200 Give 1 unit BG 201 - 240 Give 2 units BG 241 - 280 Give 3 units BG greater than 280, give 4 units and recheck BG in 2 hours. - If recheck BG i s LESS than 280, give no insulin and resume schedule - If recheck BG is GREATER than 280, give 4 units and repeat BG in 2 hours (no more than 3 times) & call for new insulin orders. DO NOT hold if N PO, unless specifically told to do so. Per Blood Glucose Monitoring Policy, re-check a BG of > 240 in 2 hours., Routine lidocaine (LIDODERM) 5 % patch 1 patch(Linked Group 2) 0800 (Not Given - Provider: Jesse Lizarraga RN - Reason: Patient/family refused) 0800 (Not Given - Provider: Sudha Lazcano RN - Reason: Patient/family refused) 0800 (Not Given - Provider: Stacie Beatty RN - Reason: Patient/family refused) 1 patch, Transdermal, EVERY 24 HOURS, Fi rst dose on Blossom 02/24/20 at 0800, Until Discontinued, Apply patch(es) for 12 hours, and then remove for 12 hours, Routine lidocaine (LIDODERM) 5 %(700 mg/patch) Patch Removal(L inked Group 2) 1914 (Patch Not Removed (add comment) - Provider: Jesse Lizarraga RN - Comment: patch never applied) 1914 (Patch Not Removed (add comment) - Provider: Alina Osman, CLARKE - Comment: no patch on) Transdermal, EVERY 24 HOURS, First dose on Fri02/24/20 at 1915, Until Discontinued, Remove lidocaine 5 %(700 mg/patch) patch upvvhv-fjflndwx-mhankih (Creon 24) 24 ,000-76,000 -120,000 unit per capsule 1 capsule 1520 (Given - Provider: Sudha Lazcano RN) 1 capsule, Oral, WITH SNACKS, Starting M on 02/28/20 at 0818, Until Fri03/01/20 at 1443, Routine qulaao-scpihgkq-otahpwd (Creon 24) 24 ,000-76,000 -120,000 unit per capsule 1- 2 capsule 0853 (Given - Provider: Valeria duggan RN)1204 (Given - Provider: Valeria Sanders RN)1623 (Given - Provider: Jesse Lizarraga RN) 0800 (Not Given - Provider: Sudha Lazcano RN - Reason: See comment - Comment: pt not eating)1200 (Not Given - Provider: Sudha Lazcano RN - Reason: See comment - Comment: pt not eating) 0818 (Given - Provider: Yuliana Mcclain)1200 (Due) 1-2 capsule, Oral, 3 TIMES DAILY WITH ME ALS, First dose on Fri02/28/20 at 0915, Until Discontinued, Patient to self-determine dose based on amount eaten., Routine 1700 (Not Given - Provider: Angely Juarez RN - Reason: See comment - Comment: pt not eating) magnesium sulfate 2 g in sterile water 50 mL (COMPLETE D) 0920 (New Bag - Provider: Valeria Sanders RN)1120 (Stopped - Provider: Valeria Sanders RN) 2 g, Intravenous, ONCE, 1 dose, 02/09 at 0915, Administer over 120 Minutes metoclopramide (REGLAN) injection 10 mg (CANCELED) 1743 (Given - Provider: Angely Juarez RN)2203 (Given - Provider: Alina Osman, CLARKE) 0730 (Not Given - Provider: Stacie Beatty RN - Reason: Medication Discontinued) 10 mg, Intravenous, 4 TIMES DAILY BEFORE MEALS & NIGHTLY, First dose on Fri02/29/20 at 1745, Until Discontinued, Doses greater than 10mg should be diluted into 50ml NS. metoclopramide (Reglan) tablet 10 mg 08 (Given - Provider: tSacie Beatty RN)115 (Given - Provider: Stacie Beatty RN) 10 mg, Oral, 4 TIMES DAILY BEFORE MEALS & NIGHTLY, First dose on Fri03/01/20 at 0915, Until Discontinued, GIVE REGARDLESS OF IF EATING OR NOT, STAT pantoprazole (PROTONIX) injection 40 mg (CANCELED) 5 (Given - Provider: Valeria Sanders, CLARKE)2023 (Given - Provider: Marjorie Foster, CLARKE) 40 mg, Intravenous, 2 TIMES DAILY, First dose on Fri02/23/20 at 2100, Until Discontinued, Reconstitute with 10 mL of normal saline to a concentration of 4 mg/mL and infuse slowly over 2 minutes. , Routine pantoprazole EC (Protonix) tablet 40 mg 803 (Given - Provider: Sudha Lazcano RN)2113 (Given - Provider: Alina Osman RN) 817 (Given - Provider: Stacie Beatty, CLARKE) 40 mg, Oral, 2 TIMES DAILY, First dose o n Fri02/29/20 at 0900, Until Discontinued, DO NOT CRUSH OR OPEN, Routine senna-docusate (Pericolace) 8.6-50 mg per tablet 1 tablet 2100 (Not Given - Provider: Alina Osman RN - Reason: Patient/family refused) 0900 (Not Given - Provider: Stacie Beatty RN - Reason: Patient/family refused) 1 tablet, Oral, 2 TIMES DAILY, First dos e (after last modification) on Fri02/29/20 at 2100, Until Discontinued, Routine senna-docusate (Pericolace) 8.6-50 mg per tablet 2 tab let (CANCELED) 929 (Given - Provider: Valeria Sanders, CLARKE)2022 (Not Given - Provider: Marjorie Foster, CLARKE - Reason: Patient/family refused) 2 tablet, Oral, 2 TIMES DAILY, First dos e on Fri02/28/20 at 0915, Until Discontinued, Routine sodium chloride 0.9 % (flush) flush 5 mL 09 (Given - Provider: Valeria Sanders, RN)2023 (Given - Provider: Marjorie Foster, RN) 08 (Given - Provider: Sudha Lazcano, CLARKE)2115 (Given - Provider: Alina Osman, CLARKE) 0818 (Given - Provider: Stacie Beatty, RN) 5 mL, Intravenous, 2 TIMES DAILY, First dose on Fri02/23/20 at 2100, Until Discontinued, Recovery (Recovery-Hospital Unit), Routine Continuous Medication Order 02/28/2020 02/29/2020 03/01/2020 dextrose 5% and sodium chloride 0.9% wit h potassium chloride 20 mEq infusion (CANCELED) 0717 (New Bag - Provider: Lisa Walker, RN) 50 mL/hr, at 50 mL/hr, Intravenous, CONT INUOUS, Starting Fri02/25/20 at 0800, Until Fri02/28/20 at 0819, Warning Vesicant/Irritant Medication HYDROmorphone (Dilaudid) 10 mcg/mL, BUpi vacaine (Marcaine) 0.1% (0.1 mg/mL) (1/10%) in sodium chloride 0.9% 250 mL epidural (CANCELED) 0854 (Rate/Dose Change - Provider: Irina Washington RN - Comment: by APS)1300 (Stopped - Provider: Irina Washington RN - Comment: by APS) 0.1 mL/hr, Epidural, at 0.1 mL/hr, KULWANT NUOUS + PCEA, Starting Fri02/23/20 at 0630, Until Fri02/28/20 at 1303, Maximum rate for continuous infusion 14 mL per hour Maximum total epidural rate (continuo us and PCEA bolus) is 25 mL per hour, Re covery (Recovery-Hospital Unit), Routine tube feeding diet (CANCELED) 0227 (Rate/Dose Verify - Provider: Lisa Walker, CLARKE) 1,248 mL, Per J Tube, CONTINUOUS, Starti ng Sun 02/27/20 at 1015, Until Fri02/28/20 at 0821, Administer flushes and check residuals per policy tube feeding diet (CANCELED) 0915 (Rate/Dose Change - Provider: Valeria Sanders, RN)1331 (Rate/Dose Change - Provider: Valeria Sanders RN) 0012 (Rate/Dose Change - Provider: Rex Parra RN) 1,248 mL, Per J Tube, at 52 mL/hr, KULWANT NUOUS, Starting 02/28/20 at 0915, Until Fri02/29/20 at 0723, Administer flushes and check residuals per policy tube feeding diet 1745 (New Bag - Provider: Angely Juarez RN) 0812 (Stopped - Provider: Stacie Beatty RN) 832 mL, Per J Tube, at 52 mL/hr, CYCLIC, Starting Fri02/29/20 at 1600, Until Fri03/01/20 at 1443, Administer flushes and check residuals per policy PRN Medication Order 02/28/2020 02/29/2020 03/01/2020 dextrose 10% infusion(Linked Group 3) 250 mL, at 1,000 mL/hr, Intravenous, BRENDA RY 30 MIN PRN, Starting Fri02/23/20 at 1450, Until Fri03/01/20 at 1443, For BG 50-70 mg/dL: Oral treatment preferred:?? If able to drink, give 120 mL Juice o r Regular (not diet) soda OR If NPO, giv e 15 gram glucose 40% oral gel massaged into buccal mucosa OR if unconscious or uncooperative, give 25 gram (250 mL) Dextrose 10% IV over 15 minutes per protocol OR, if no IV access, 1 mg Glucagon IM. * * For BG less than 50 mg/dL: Oral treatment preferred:?? If able to drink, give 240 mL Juice or Regular (not diet) soda OR If NPO, give 30 gram glucose 40% oral g el massaged in buccal mucosa OR if uncon scious or uncooperative, give 25 gram (250 mL) Dextrose 10% IV over 15 minutes per protocol OR, if no IV access, 1 mg Glucagon IM. Recheck BG in 30 minutes. May repeat juice/soda, gel, dextrose or glu cagon once per episode. For persistent hypoglycemia, consider longer-acting treatment for the duration of the active insulin. glucagon (human recombinant) injection SolR 1 mg(Linked Group 3) 1 mg, Intramuscular, EVERY 30 MIN PRN, S tarting Fri02/23/20 at 1450, Until Fri03/01/20 at 1443, Low blood sugar, For BG 50-70 mg/dL: Oral treatment preferred:?? If able to drink, give 120 mL Juice or Regular (not diet) soda OR If NPO, gi ve 15 gram glucose 40% oral gel massaged into buccal mucosa OR if unconscious or uncooperative, give 25 gram (250 mL) Dextrose 10% IV over 15 minutes per protocol OR, if no IV access, 1 mg Glucagon IM. For BG less than 50 mg/dL: Oral treatment preferred:?? If able to drink, give 240 mL Juice or Regular (not diet) soda OR If NPO, give 30 gram glucose 40% oral gel massaged in buccal mucosa OR if unco nscious or uncooperative, give 25 gram (250 mL) Dextrose 10% IV over 15 minutes per protocol OR, if no IV access, 1 mg Glucagon IM. Recheck BG in 30 minutes. Ma y repeat juice/soda, gel, dextrose or gl ucagon once per episode. For persistent hypoglycemia, consider longer-acting treatment for the duration of the active insulin., Routine glucose (GLUTOSE) 40% oral geL(Linked Group 3) 15-30 g, Buccal, EVERY 30 MIN PRN, Start ing Fri02/23/20 at 1450, Until Fri03/01/20 at 1443, Low blood sugar, For BG 50-70 mg/dL: Oral treatment preferred:?? If able to drink, give 120 mL Juice or R egular (not diet) soda OR If NPO, give 1 5 gram glucose 40% oral gel massaged into buccal mucosa OR if unconscious or uncooperative, give 25 gram (250 mL) Dextrose 10% IV over 15 minutes per protocol OR, if no IV access, 1 mg Glucagon IM. F or BG less than 50 mg/dL: Oral treatment preferred:?? If able to drink, give 240 mL Juice or Regular (not diet) soda OR If NPO, give 30 gram glucose 40% oral gel massaged in buccal mucosa OR if unconsci ous or uncooperative, give 25 gram (250 mL) Dextrose 10% IV over 15 minutes per protocol OR, if no IV access, 1 mg Glucagon IM. Recheck BG in 30 minutes. May re peat juice/soda, gel, dextrose or glucag on once per episode. For persistent hypoglycemia, consider longer-acting treatment for the duration of the active insulin. 1 tube contains 15 grams of glucose (net weight of tube = 37.5 grams., Routine lidocaine (XYLOCAINE) 10 mg/mL (1 %) injection 3 mg 3 mg (0.3 mL), Subcutaneous, ONCE PRN, 1 dose, Starting 02/23/20 at 1832, Until Fri03/01/20 at 1443, for discomfort with PIV insertion, Recovery (Recovery-Hospital Unit), Routine ondansetron (ZOFRAN) injection 4-8 mg 02 18 (Given - Provider: Rex Parra, RN)1730 (Given - Provider: Angely Juarez, RN) 4-8 mg, Intravenous, EVERY 8 HOURS PRN, Starting Fri02/23/20 at 1832, Until Fri03/01/20 at 1443, Nausea, Vomiting, If multiple antiemetics are ordered, use ondansetron first May repeat times one in 30 minutes if ineffective. phenol 1.4% (CHLORASEPTIC) spray 1 spray 1 spray, Oral, EVERY 4 HOURS PRN, Starti ng Sat 02/26/20 at 0613, Until Fri03/01/20 at 1443, Irritation, Routine prochlorperazine (COMPAZINE) injection 5 mg (CANCELED) 0745 (Given - Provider: Sudha Lazcano RN) 5 mg, Intravenous, EVERY 6 HOURS PRN, St arting 02/29/20 at 0716, Until 02/29/20 at 1659, Nausea, Vomiting, Routine sodium chloride 0.9 % (flush) flush 5-20 mL 5-20 mL, Intravenous, EVERY 1 MIN PRN, S tarting Fri02/23/20 at 1832, Until 03/01/20 at 1443, flush, Flush pertains to all indwelling lines. Flush per protocol found in the job aid using the link pr ovided on this medication record., Recovery (Recovery-Hospital U nit), Routine traMADoL (Ultram) tablet 50 mg 50 mg, Oral, EVERY 6 HOURS PRN, Starting 02/29/20 at 0719, Until Fri03/01/20 at 1443, Pain, FOR PAIN UNCONTROLLED BY TYLENOL, Routine Linked Groups Order Group 1: POCT Fingerstick Glucose (CANCELED) Routine, 4 TIMES DAILY BEFORE MEALS & AT BEDTIME, First occurrence on Fri02/28/20 at 1100, Until Specified
Consider choosing EVERY 4 HOURS as frequency for: - Type 1 Diabetes - At leas t 24 hours after coming off an insulin d rip - At least 24 hours after admission for DKA - Hypoglycemia unawareness - Patients who are otherwise unstable Select the same frequency for the correction bolus insulin order And insulin lispro (HumaLOG) VIAL injection 1-4 UnitsJump to med 1-4 Units, Subcutaneous, 4 TIMES DAILY B EFORE MEALS & NIGHTLY, First dose (after last modification) on Fri02/28/20 at 1130, Until Discontinued
CORRECTION BOLUS [1-4 Units]&nbsp ;Sensitive Sliding Scale: Correction fac tor 40 (1 unit of insulin is expected to drop the glucose 40 mg/dL) BG 160 - 200 Give 1 unit BG 201 - 240 Give 2 units BG 241 - 280 Give 3 units BG greater than 280, give 4 units and recheck BG in 2 hours. - If recheck BG is LESS than 280, give no insulin and resume schedule - If recheck BG is GREATER than 280, give 4 units and repe at BG in 2 hours (no more than 3 times) & call for new insulin orders. DO NOT hold if NPO, unless specifically told to do so. Per Bl ood Glucose Monitoring Policy, re-check a BG of > 240 in 2 hours.
Routine Group 2: lidocaine (LIDODERM) 5 % patch 1 patchJump to med 1 patch, Transdermal, EVERY 24 HOURS, Fi rst dose on Fri02/24/20 at 0800, Until Discontinued
Apply patch(es) for 12 hours, and then remove for 12 hours
Routine And lidocaine (LIDODERM) 5 %(700 mg/patch) Patch RemovalJump to med Transdermal, EVERY 24 HOURS, First dose on Fri02/24/20 at 1915, Until Discontinued
Remove lidocaine 5 %(700 mg/patch) patch
Group 3: glucose (GLUTOSE) 40% oral geLJump to med 15-30 g, Buccal, EVERY 30 MIN PRN, Start ing Fri02/23/20 at 1450, Until Fri03/01/20 at 1443, Low blood sugar
For BG 50-70 mg/dL: Oral treatment preferred:?? If able to drink, give 120 mL Ju ice or Regular (not diet) soda OR If NPO , give 15 gram glucose 40% oral gel massaged into buccal mucosa OR if unconscious or uncooperative, give 25 gram (250 mL) Dextrose 10% IV over 15 minutes per prot ocol OR, if no IV access, 1 mg Glucagon IM. For BG less than 50 mg/dL: Oral treatment preferred:?? If able to drink, give 240 mL Juice or Regular (not diet) soda OR If NPO, give 30 gram glu cose 40% oral gel massaged in buccal muc rin OR if unconscious or uncooperative, give 25 gram (250 mL) Dextrose 10% IV over 15 minutes per protocol OR, if no IV access, 1 mg Glucagon IM. Reche ck BG in 30 minutes. May repeat juice/so da, gel, dextrose or glucagon once per episode. For persistent hypoglycemia, consider longer-acting treatment for the duration of the activ e insulin. 1 tube contains 15 grams of glucose (net weight of tube = 37.5 grams.
Routine Or dextrose 10% infusionJump to med 250 mL, at 1,000 mL/hr, Intravenous, BRENDA RY 30 MIN PRN, Starting Fri02/23/20 at 1450, Until Fri03/01/20 at 1443
For BG 50-70 mg/dL: Oral treatment preferred:?? If able to drink, give 120 mL Juice or Regular (not diet) soda OR If NPO, give 15 gram glucose 40% oral gel massaged into buccal mucosa OR if unconscious or uncooperative, give 25 gram (250 mL) Dextrose 10% IV over 15 minutes per p rotocol OR, if no IV access, 1 mg Glucag on IM. For BG less than 50 mg/dL: Oral treatment preferred:?? If able to drink, give 240 mL Juice or Regular (not diet) soda OR If NPO, give 30 gram glucose 40% oral gel massaged in buccal mucosa OR if unconscious or uncooperative, give 25 gram (250 mL) Dextrose 10% IV over 15 minutes per protocol OR, if no IV access, 1 mg Glucagon IM. Re check BG in 30 minutes. May repeat juice /soda, gel, dextrose or glucagon once per episode. For persistent hypoglycemia, consider longer-acting treatment for the duration of the active insulin.
Or glucagon (human recombinant) injection SolR 1 mgJump to med 1 mg, Intramuscular, EVERY 30 MIN PRN, S tarting Fri02/23/20 at 1450, Until Fri03/01/20 at 1443, Low blood sugar
For BG 50-70 mg/dL: Oral treatment preferred:?? If able to drink, give 120 m L Juice or Regular (not diet) soda OR If NPO, give 15 gram glucose 40% oral gel massaged into buccal mucosa OR if unconscious or uncooperative, give 25 gram (250 mL) Dextrose 10% IV over 15 minutes per protocol OR, if no IV access, 1 mg Gluca tiffany IM. For BG less than 50 mg/dL: Oral treatment preferred:?? If able to drink, give 240 mL Juice or Regular (not diet) soda OR If NPO, give 30 gram glucose 40% oral gel massaged in buccal mucosa OR if unconscious or uncooperative, give 25 gram (250 mL) Dextrose 10% IV over 15 minutes per protocol OR, if no IV access, 1 mg Glucagon IM. R echeck BG in 30 minutes. May repeat juic e/soda, gel, dextrose or glucagon once per episode. For persistent hypoglycemia, consider longer-acting treatment for the duration of the active insulin.
Routine documented in this encounter Care Teams Park Keeper Relationship Specialty Start Date End Date Irving Wheeler MD PCP - General 06/23/[address] [place] [id number] documented as of this encounter
--- OUTSIDE RECORDS SUMMARY | 2022-02-01 00:27 | XMS_ITS | Encounter Summary ---
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 Morris Dozier Canceled (P-NO [facility] MD Angel LONGER NEEDED) [facility][note 3] [id number] ONCOLOGY [phone] [place] [address] Social History Tobacco Use Types Packs/Day Years [...] Sig Dispensed Refills Start Date End Date sucralfate (Carafate) 1 Every 6 hours. 0 07/28/19 20 gram Tablet esomeprazole (NexIUM) Every 12 hours. 0 0 40 mg Capsule, Delayed Release(E.C.) ferrous sulfate (IRON Take 50 mg [...] every 6 hours as needed for Pain. xlzrdf-ovczjvnu-lstkvof Take 1-2 capsules by 270 capsule 3 1 01/26/2021 (Audrey 24) mouth 3 times daily 24,000-76,000 -120,000 [...] for Pain (FOR PAIN UNCONTROLLED BY TYLENOL). MAGNESIUM CARBONATE Take 325 mg by mouth 0 03/01/2020 ORAL daily. omeprazole (PriLOSEC) Take 40 mg by mouth 0 03/29/2020 40 mg Capsule, Delayed Daily. Release(E.C.) documented as of this encounter Plan of Treatment Upcoming Encounters Date Type Specialty Care Team Description 02/15/2022 Office Visit Hematology and Oncology Morris Dozier MD [facility] [address] ONCOLOGY [place], [place] [address] (Wo rk) documented as of this [...] on filedocumented in this encounter Care Teams Data Examination Clerk Relationship Specialty Start Date End Date Irving Wheeler MD PCP - General 06/23/[address] [place] [id number] documented as of this encounter
--- OUTSIDE RECORDS SUMMARY | 2022-02-01 00:27 | XMS_ITS | Encounter Summary ---
:1960 [place] [address] Care Team Providers Name Role Phone Irving Wheeler MD Primary Care Provider [phone] Reason for Visit Auth/Cert Specialty Diagnoses / Procedures Referred By Contact Refer red To Contact Diagnoses GIST (gastrointestinal stromal tumor), malignant MALIGNANT GIST OF THE DUODENUM MALIGNANT GIST OF THE DUODENUM Procedures PRO PART REMV PANC, PROX+PART DUOD+ANAST @PANCREATECTOMY, WHIPPLE TYPE WITH PANCREATOJEJUNOSTOMY (WRVU 52.79) Referral ID Status Reason Start Date Expiration Date Visits Requ ested Visits Authorized [id number] 1 1 Encounter Details Date Type Department Care Team Description 02/23/2020 Anesthesia Event Main Operating Room Nadir Ocampo MD [facility] [place] [address] [facility] Leatha Bond CRNA [facility] [place] [address] [facility] [place] [address] Anesthesia Record Procedure Summary Procedure Name Responsible Anesthesia Start Anesthesia Stop Anesthesiologist Time Time @PANCREATECTOMY, WHIPPLE Nadir Samaniego MD 02/23/20 0713 1439 TYPE WITH PANCREATOJEJUNOSTOMY (WRVU 52.79) (N/A Abdomen) Events Date Time Event Comment 02/23/2020 0654 0713 AN Verify 0713 Start 0713 An Start Data 0718 An Induction 0726 An Intubation 0734 Anesthesia Ready 0808 Procedure Start 0809 ABG Data Arterial Blood G as result: pH 7.44 pCO2 31.6 pO2 305.6 %O2 Sa t 99 FiO2 50 HCO3 21.4 BE -2.7 Hb 11.1 K 4 .11 Glucose 102 Lactate 0.63 1029 Quick Note Surgical pause 1425 Extubation/LMA Out Patient sv wi th adequate tidal volumes and RR> SXNd and ext ubated to FM. Transferred to PACU on FM and F IO2. Report to RN. FALGUNI. 1429 an stop data 1439 Recovery or ICU Handoff Patient care was transferred to the destination unit staff after review of the patient's medica l history, current anesthetic/surgi rabia status and plan, according to the Provider Handoff Checklist. 1439 Stop Name Total fentaNYL 150 mcg IV Lidocaine 80 mg Propofol 200 mg Rocuronium 140 mg Ondansetron 4 mg Dexamethasone 8 mg Neostigmine 2.5 mg Glycopyrrolate 0.4 mg Heparin 5,000 Units Piperacillin-Tazobactam 10.125 g Propofol INF 954.48 mg BUpivacaine 0.1% with HYDROmorphone 10 mcg/mL 9 mL HYDROmorphone (Dilaudid) 10 mcg/mL, BUpivacaine (Mario ine) 0.1% (0.1 39.9 mL mg/mL) (1/10%) in sodium chloride 0.9% 250 mL epidural Dexmedetomidine 20 mcg lactated ringers infusion 1,200 mL Normosol-R 1,400 mL Agents Name O2 Air N2O Sevoflurane (et) Blood No blood administrations on file. Lines, Drains, and Airways Type Details Placement Removal Enterostomy Tube 02/23/20; 1319; 02/23/20 1319 by jejunostomy tube; other Letty Anderson RN (see comments) (right abdomen. ); feeding; 12 hungarian. NG/OG Tube 02/23/20; [place] sump; 18 02/23/20 0000 by 1400 by Fr; right nostril; post Ericka Galdamez RN Lam[place] n, Marciana, RN pyloric; Taped; Placed in OR under direct visualization; 02/26/20; 1400 PIV 02/23/20; 0623; cephalic 02/23/20 0623 by 2016 by vein (lateral side of Nanci Mckenna, CLARKE Quezada, Carrie arm), left; R, RN [id number]-jai-peeghv catheter system; 18 gauge; tolerated well; IV site phlebitic; removed per policy/procedure, catheter/device intact, site symptomatic, site care per policy/procedure; 02/25/20; 2017 Epidural 02/23/20; 0701; thoracic; 02/23/20 0701 by 02/27 1300 by loss 4.75, tip T8/9, 10cm Zenaida Rucker, Dandre Carson, skin; analgesia, RN continuous infusion; no longer indicated, removed with ease, removed per policy; No complications, Catheter intact; 02/28/20; 1300 PIV 02/23/20; 0718; 02/23/20 0718 by 02/25/202015 b y metacarpal vein (top of Leatha Bond, Haylie Quezada, Carrie hand), right; ELECTRICAL AUTOMATION ENGINEER R, CLARKE [id number] catheter system; 16 gauge; Aden HURD; IV site is reddened and swollen.; removed per policy/procedure, catheter/device intact, site care per policy/procedure; 02/25/20; 2015 ETT Mask Ventilation: Easy 02/23/20 0726 by 02/23/20 1425 by (1); ETT Type: Cuffed, Leatha Bond, Coutu re, Leatha De La Torre, Oral; ETT Size: 7 mm; Mac ELECTRICAL AUTOMATION ENGINEER ELECTRICAL AUTOMATION ENGINEER Blade: 3; Notes: Asleep, Stylette; Attempts: 1; Laryngoscopy Grade: 1; ETT Placement Verified By: Auscultation, Capnometry, Visual; Secured at Teeth: 21 cm; Inserted by: Ronda WILSON Arterial Line 02/23/20; 0730; radial 02/23/20 0730 by 02/23/20 1625 by artery, right; 20 gauge; Leatha Bond, Roshan munoz, Ericka Malcolm, CLARKE Bond ELECTRICAL AUTOMATION ENGINEER; Sterile ELECTRICAL AUTOMATION ENGINEER Prep, Sterile Gloves; no longer indicated, catheter intact, removed per policy; 02/23/20; 1625 NG/OG Tube 02/23/20; 0730; 02/23/20 0730 by 02/23/20 1000 b y orogastric; 18 Fr; mouth; Leatha Bond, Co Leatha perez, 02/23/20; 1000 ELECTRICAL AUTOMATION ENGINEER ELECTRICAL AUTOMATION ENGINEER Urethral Catheter 02/23/20; 0730; Abdominal 02/23/20 0730 by 1019 by surgery, Surgery longer Letty Anderson, Dimitris Garcia, than 2 hours; indwelling TECHNICAL SALES SPECIALIST double lumen catheter; latex, silicone coated; 14; inserted at this facility; 1; 5; 10; none; drainage bag to dependent drainage; 02/25/20; 1019 Incision 02/23/20; 0807; abdomen; 02/23/20 0807 by 1715 by midline; 01/07/22 (Letty Escalona, CLARKE raymond, Jeromy Malcolm cleanup utility RA#[id number]); 1715 (LDA cleanup utility RA#[id number]) Drain/Device Site 02/23/20; 1243; Right; 02/23/20 1243 by 0918 by lower; abdomen; Deyanira Law RN [place], Je ssica L, collapsible closed device RN (24 fr luly drain); removed by ANA Villanueva; 02/28/20; 0918 Drain/Device Site 02/23/20; 1307; Left; 02/23/20 1307 by 0 1100 by abdomen; gravity; 5 Letty Anderson, Sudha Gar RN hungarian feeding tube in pancreas duct. ; 02/27/20; 1100 documented in this encounter Social History Tobacco Use Types Packs/Day Years [...] on file documented as of this encounter OR Notes Anesthesia Procedure Notes - Brandt Rae MD - 03/26/2020 10:55 AM EST Associated Order(s): Neuraxial Block Procedure: Neuraxial Block Post-op Pain Control Post-op pain management at the request of surgeon. Type: Epidural The patient was greeted. The sedation plan, its benefits, risks and alternatives were discussed withthe patient. The patient has consented to the procedure. The medical history and chart were reviewed. The timeout was performed. Start time: 02/23/2020 7:00 AM End time: 02/23/2020 7:11 AM Patient Location: Operating Room Patient Prep Position: Prone Prep: Hand Hygiene, Hat, Mask, Sterile Gloves, Gown, Chlorhexidine and Patient Draped Skin Anesthetic Lidocaine 1% 6 ml Procedure Technique Level of needle insertion: T12-L1 Needle approach: paramedian Needle Type: Tuohy Gauge: 17 Needle length: 3.5 in Needle insertion depth when ZULY achieved: 4.8 cm A 21 guage epidural catheter introduced into the epidural space. Catheter at skin depth: 10 cm Dressing/Secured with: Chlorhexidine Tegaderm and Tegaderm Events/Notes Imaging: epidurogram obtained and fluoroscopy guided Level of Epidural Tip via Fluoroscopy: T8-9 Iohexol 240 mgI/mL, 2 mL Events: None Additional Notes: Patient positioned prepped and draped in the usual fashion. Skin anesthetized w/lidocaine. Tuohy advanced under fluoro until unequivocal Zuly. Catheter threaded under fluoro. + epidurogram. Patient tolerated procedure w/o issue. Resident/ELECTRICAL AUTOMATION ENGINEER: Brandt Rae MD Second Resident/ELECTRICAL AUTOMATION ENGINEER: Fellow: Dandre Gerber MD Attending Physician: Kirby Valenzuela MD ~~~~~~~~~~~~~~~~~~~~~~~~~~~~~~~~~~~~~~~~~~~~~~~~~~~~~~~~~~~~ Anesthesia Postprocedure Evaluation - Nadir Samaniego MD - 02/23/2020 3:34 PM EDT Department of Anesthesiology Post-procedure Note Patient: Mary Kay Gonzalez Procedure Summary Date: 02/23/20 Room / Location: [address] MAIN OR Anesthesia Start: 712 Anesthesia Stop: 143 Procedures: @PANCREATECTOMY, WHIPPLE TYPE WITH PANCREATOJEJUNOSTOMY (WRVU 52.79) (N/A Abdomen) @JEJUNOSTOMY TUBE PLACEMENT (WRVU 2.62) (N/A Abdomen) PANCREATIC STENT INSERTION (WRVU 18.28) (N/A Abdomen) @OMENTAL FLAP, INTRA-ABDOMINAL (WRVU 6.54) (Abdomen) Diagnosis: (MALIGNANT GIST OF THE DUODENUM) Surgeon: Emely Galdamez MD Responsible Provider: Nadir Samaniego MD Anesthesia Type: general ASA Status: 3 All Anesthesia Providers: Anesthesiologist: Nadir Samaniego MD ELECTRICAL AUTOMATION ENGINEER: Leatha Bond CRNA Vitals Value Taken Time BP 113/68 02/23/20 1500 Temp 36.7 ??C (98.1 ??F) 02/23/20 1433 Pulse 84 02/23/20 1533 Resp 14 02/23/20 1533 SpO2 97 % 02/23/20 1533 Pain Level 0 02/23/20 1500 Vitals shown include unvalidated device data. Patient Location: PACU/[facility] Level of Consciousness: Awake and Alert Pain Management: Satisfactory Analgesia PONV: None Cardiovascular Status: Hemodynamically Stable and At Baseline Respiratory Status: At Baseline and Room Air Postoperative Fluid Status: Intravascular EUvolemia Possible Anesthetic Complications: NONE apparent at time of evaluation Final Primary Anesthesia Type: General (The anesthetic type performed was the same as planned.) Comments: Anesthesia Preprocedure Evaluation - Nadir Samaniego MD - 02/23/2020 6:52 AM EDT Pre-Anesthesia Evaluation for: Mary Kay Gonzalez a 59 y.o. female. Procedure(s): @PANCREATECTOMY, WHIPPLE TYPE WITH PANCREATOJEJUNOSTOMY (WRVU 52.79) Patient Active Problem List Diagnosis ??? GIST (gastrointestinal stromal tumor), malignant ??? Anemia ??? Disorder of thyroid gland ??? Arthritis ??? Tinnitus ??? Vitamin D deficiency ??? Osteoarthrosis ??? Malignant gastrointestinal stromal tumor (GIST) of small intestine Past Medical History: Diagnosis Date ??? Arthritis ??? Cancer Past Surgical History: Procedure Laterality Date ??? PRO ENDOSCOPIC US EXAM, ESOPH N/A 11/25/2019 UPPER EUS- ENDOSCOPIC ULTRASOUND performed by Pedrito Arrieta MD at [facility] ENDOSCOPY Social History Tobacco Use ??? Smoking status: Former Smoker Packs/day: 0.50 Types: Cigarettes Quit date: 1994 Years since quittin.8 ??? Smokeless tobacco: Never Used ??? Tobacco comment: never vape Substance Use Topics ??? Alcohol use: Not Currently Comment: none since 05/12/2019 Social History Substance and Sexual Activity Drug Use Never No Known Allergies Medications: MAR and/or home medications have been reviewed. Physical Exam: Patient Vitals for the past 24 hrs: Temp Pulse Resp BP SpO2 O2 Device 02/23/20 0609 (!) 38 ??C (100.4 ??F) (!) 105 16 103/60 98 % RA 02/23/20 0615 (!) 38.3 ??C (100.9 ??F) -- -- -- -- -- Body mass index is 20.69 kg/m??. Height: 159 cm (5' 2.6) Weight: 52.3 kg (115 lb 4.8 oz) Airway Assessment: Mallampati: I TM distance: >3 FB Neck ROM: full Cardiovascular Assessment: cardiovascular exam normal Pulmonary Assessment: pulmonary exam normal Dental Assessment: - normal exam Misc Assessment: IV access: Peripheral line Anesthesia Plan: ASA 3 general, with a(n) intravenous induction 59 y/o woman with a PMH of GIST here for [place]. Never had GA, tolerated MAC. METS >4. NPO. Plan for GA, ETT. PIVx2, arterial line, preop epidural. Region - Other Informed Consent: Anesthetic plan and risks discussed with patient. Use of blood products discussed with patient who consented to blood products. Plan discussed with ELECTRICAL AUTOMATION ENGINEER. PAT Clinic Note documented in this encounter Miscellaneous Notes Addendum Note - Butch, Brandt Morin MD - 03/26/2020 11:00 AM EST Addendum created 03/26/20 1100 by Brandt Rae MD Child order released for a procedure order, Clinical Note Signed, Intraprocedure Blocks edited documented in this encounter Plan of Treatment Upcoming Encounters Date Type Specialty Care Team Description 02/15/2022 Office Visit Hematology and Oncology Morris Dozier MD [facility] ON[facility] [place], [place] [address] (Wo rk) documented as of this encounter Goals Goal Patient Goal Associated Recent Patient-Stated? Author Type Problems Progress DH Home Medication Patient No [place], Compliance and Facing Brandt Morin, Understanding Action Plan [facility] Note: Formatting of this note might be d ifferent from the original. Remain 95% adherent to Imatinib therapy without significant neutropenia as assessed by CBC labs in clinic every 1 to 3 months documented as of this encounter Procedures Procedure Name Priority Date/Time Associated Diagnosis Comme nts ANE NEURAXIAL APS Routine 03/26/2020 10:55 AM Res ults for this USE EST procedure are i n the results section. documented in this encounter Results Neuraxial Block (03/26/2020 10:55 AM EST) Narrative Kirby Valenzuela MD - 03/26/2020 10:5 5 AM EST Record, Brandt Morin MD ? 03/26/2020 10:59 AM Procedure: ?? Neuraxial Block Post-op Pain Control Post-op pain management at the request o f surgeon. Type: Epidural The patient was greeted. The sedation pl an, its benefits, risks and alternatives were discussed with the pat ient. ??The patient has consented to the procedure. ??The medical history and chart were reviewed. ??The timeout was performed. Start time: 02/23/2020 7:00 AM End time: 02/23/2020 7:11 AM Patient Location: Operating Room Patient Prep Position: Prone Prep: Hand Hygiene, Hat, Mask, Sterile G loves, Gown, Chlorhexidine and Patient Draped Skin Anesthetic Lidocaine 1% ??6 ml Procedure Technique Level of needle insertion: T12-L1 Needle approach: paramedian Needle Type: Tuohy Gauge: 17 Needle length: 3.5 in Needle insertion depth when ZULY achieved : 4.8 cm A 21 guage epidural catheter introduced into the epidural space. Catheter at skin depth: 10 cm Dressing/Secured with: Chlorhexidine Teg aderm and Tegaderm Events/Notes Imaging: ??epidurogram obtained and fluo roscopy guided Level of Epidural Tip via Fluoroscopy: T 8-9 Iohexol 240 mgI/mL, 2 mL Events: ??None Additional Notes: ??Patient positioned p repped and draped in the usual fashion. ??Skin anesthetized w/lidocaine . Tuohy advanced under fluoro until unequivocal Zuly. ??Catheter threaded und er fluoro. + epidurogram. ??Patient tolerated procedure w/o issue. Resident/ELECTRICAL AUTOMATION ENGINEER: ? Record, Shimon Morin MD Second Resident/ELECTRICAL AUTOMATION ENGINEER: Fellow: ?Dandre Gerber MD Attending Physician: ? Esthela Valenzuela MD ~~~~~~~~~~~~~~~~~~~~~~~~~~~~~~~~~~~~~~~~ ~~~~~~~~~~~~~~~~~~~~ Kirby Valenzuela MD HYDROGENATION STILL OPERATOR [facility] documented in this encounter Visit Diagnoses Not on filedocumented in this encounter Administered Medications Inactive Administered Medications - up to 3 most recent administrations Medication Order MAR Action Action Date Dose Rate Site dexamethasone (Decadron) injection Given 02/23/2020 7:23 AM EDT 8 mg PRN, Starting on Fri02/23/20 at 0723, Until Fri02/23/20 at 1439, Anesthesia Intra-op, Routine dexmedetomidine (PRECEDEX) injection Given 02/23/2020 8:19 AM EDT 8 mcg PRN, Starting on Fri02/23/20 at 0817, Until Fri02/23/20 at 1439, Anesthesia Intra-op, Routine Given 02/23/2020 8:17 AM EDT 8 mcg Given 02/23/2020 8:11 AM EDT 4 mcg electrolyte (pH 7.4) (NORMOSOL-R; PLASMALYTE-A) New Bag 02/23/2020 12:00 PM EDT injection CONTINUOUS PRN, Starting on Fri02/23/20 at 0734, Until Fri02/23/20 at 1439, Anesthesia Intra-op New Bag 02/23/2020 7:34 AM EDT fentaNYL 50 mcg/mL multi-dose injection Given 02/23/2020 1:54 PM EDT 25 mcg PRN, Starting on Fri02/23/20 at 0718, Until Fri02/23/20 at 1439, Anesthesia Intra-op, Routine Given 02/23/2020 9:30 AM EDT 25 mcg Given 02/23/2020 8:08 AM EDT 50 mcg glycopyrrolate (ROBINUL) multi-dose inje ction Given 02/23/2020 2:09 PM EDT 0.4 mg PRN, Starting on Fri02/23/20 at 1409, Until Fri02/23/20 at 1439, Anesthesia Intra-op, Routine heparin (porcine) 1,000 unit/mL Given 02/23/2020 7:54 AM EDT 5,0 00 Units injection PRN, Starting on Fri02/23/20 at 0754, Until Fri02/23/20 at 1439, Anesthesia Intra-op, Routine HYDROmorphone (Dilaudid) 10 Rate/Dose Change 02/28/2020 [...] AM EDT 4 mL/hr 4 mL/hr HYDROmorphone (Dilaudid) 10 mcg/mL, Given 02/23/2020 12:44 PM ED T 3 mLs BUpivacaine (Marcaine) 0.1% (0.1 mg/mL) (1/10%) in sodium chloride 0.9% 250 mL epidural PRN, Starting on Fri02/23/20 at 0815, Until Fri02/23/20 at 1439, Anesthesia Intra-op, Routine Given 02/23/2020 8:18 AM EDT 3 mLs Given 02/23/2020 8:15 AM EDT 3 mLs lactated ringers infusion New Bag 02/23/2020 11:54 AM EDT 1,000 mL, at 100 mL/hr, Intravenous, CONTINUOUS, Starting on Fri02/23/20 at 0630, Until Fri02/23/20 at 1633, Day of Surgery (Day of Procedure) New Bag 02/23/2020 6:25 AM EDT 1,000 mLs 100 mL/hr lidocaine (PF) (XYLOCAINE) 100 mg/5 mL (2 %) Given 0 7:20 AM EDT 80 mg injection PRN, Starting on Fri02/23/20 at 0720, Until Fri02/23/20 at 1439, Anesthesia Intra-op, Routine neostigmine (BLOXIVERZ) injection Given 02/23/2020 2:09 PM EDT 2.5 mg PRN, Starting on Fri02/23/20 at 1409, Until Fri02/23/20 at 1439, Anesthesia Intra-op, Routine ondansetron (ZOFRAN) injection Given 02/23/2020 1:36 PM EDT 4 mg PRN, Starting on Fri02/23/20 at 1336, Until Fri02/23/20 at 1439, Anesthesia Intra-op, Routine piperacillin-tazobactam (ZOSYN) injectio n Given 02/23/2020 1:57 PM EDT 3.375 g PRN, Starting on Fri02/23/20 at 0800, Until Fri02/23/20 at 1439, Anesthesia Intra-op, Routine Given 02/23/2020 10:00 AM EDT 3.375 g Given 02/23/2020 8:00 AM EDT 3.375 g propofoL (Diprivan) 10 mg/mL bolus injection Given 0 1:47 PM EDT 50 mg (Anesthesia) PRN, Starting on Fri02/23/20 at 0722, Until Fri02/23/20 at 1439, Anesthesia Intra-op Given 02/23/2020 7:25 AM EDT 30 mg Given 02/23/2020 7:22 AM EDT 120 mg propofoL (Diprivan) Rate/Dose 02/23/2020 1:37 50 mcg/kg/min 15.7 mL/ hr infusion Change PM EDT CONTINUOUS PRN, Starting on Fri02/23/20 at 0734, Until Fri02/23/20 at 1439, Anesthesia Intra-op, Routine New Bag 02/23/2020 7:34 AM EDT 50 mcg/kg/min 15.7 mL/hr rocuronium (ZEMURON) multi-dose injectio n Given 02/23/2020 12:58 PM EDT 10 mg PRN, Starting on Fri02/23/20 at 0723, Until Fri02/23/20 at 1439, Anesthesia Intra-op, Routine Given 02/23/2020 12:28 PM EDT 10 mg Given 02/23/2020 11:50 AM EDT 10 mg documented in this encounter Care Teams Inpatient Services Director Relationship Specialty Start Date End Date Irving Wheeler MD PCP - General 06/23/[address] [place] [id number] documented as of this encounter
--- OUTSIDE RECORDS SUMMARY | 2022-02-01 00:27 | XMS_ITS | Encounter Summary ---
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 THE DUODENUM Procedures PRO PART REMV PANC, PROX+PART DUOD+ANAST @PANCREATECTOMY, WHIPPLE TYPE WITH PANCREATOJEJUNOSTOMY ([facility] 52.79) Referral ID Status Reason Start Date Expiration Date Visits Requ ested Visits Authorized [id number] 1 1 Encounter Details Date Type Department Care Team Description 02/23/2020 Surgery Main Operating Room Carlee Galdamez @[place] NCREATECTOMY, WHIPPLE Estefany Purdy MD TYPE WITH [facility] PANCREATOJEJUNOSTOMY ([facility] 52.79) [place] [id number] [phone] [id number] [phone] Social History Tobacco Use Types Packs/Day Years [...] Sign Reading Time Taken Comments Blood Pressure 106/61 02/23/2020 4:00 PM EDT Pulse 75 02/23/2020 4:45 PM EDT Temperature 36.9 ??C (98.4 ??F) 02/23/2020 4:00 PM EDT Respiratory Rate 15 02/23/2020 4:45 PM EDT Oxygen Saturation 96% 02/23/2020 4:45 PM EDT Inhaled Oxygen Concentration - - Weight 52.3 kg (115 lb 4.8 oz) 02/23/2020 6:09 AM EDT Height 159 cm (5' 2.6) 02/23/2020 6:09 AM EDT Body Mass Index 20.69 02/23/2020 6:09 AM EDT documented in this encounter Discharge Summaries Britany Villanueva APRN - 03/01/2020 9:37 AM EDT General Surgery [...] is a 59 year old woman from [place], [place]. She presented with several months history of nausea and then vomiting to the [facility] ED with a work-up described below. ?? 11/22/2019 CT abdomen and pelvis ([facility]). ?? 11/25/[address] Arrieta [...] passes were made with the 22 gauge [employer] biopsy needle using a transduodenal approach. A [...] ?? 11/25/2019 EUS [facility]NA cytopathology per Acc# [id number] showed Neoplastic Cells Present. Consistentwith g astrointestinal [...] and then eventually she presented to the [facility] ED with a hemoglobin of 8.5. [...] therefore quite straightforward. Her pancreas was completely wuyjzm-rhtechuuj-kxoj gland and small duct approximately 1 mm indiameter. We elected to stent the pancreatic anastomosis using an externalized 5 [place] pancreatic duct stent which was passed approximately 10 cm down into the pancreatic remnant body and tail. A 19 [place] Luly drain was placed in through a right lateral stab incision and passed posterior to the bile duct anastomosis and then anterior to the pancreatic anastomosis. We created an omental pedicle flap from the falciform ligament and used this to cover the korin hepatis dissection. A 12 [place] feeding jejunostomy tube was placed approximately 30 [...] facility: [facility] [place] Contact information: PHONE: [phone] Discharge Conditions/Prognosis: Stable Discharge Medications: The following [...] needed for Constipation. 100 mg Refills: 0 xieukq-mnizhfyl-takdcih DR 24,000-76,000 -120,000 unit Cpdr Commonly known [...] Center 03/06/2020 8:[address] [facility] HEM ONC [facility] 03/20/2020 1:00 PM LAB, THREE L [facility]L [facility] 03/20/2020 2:00 PM Carlee Galdamez MD [facility] SURG [facility] 03/20/2020 2:[address] [facility] SURG [facility] 03/21/2020 12:15 PM LABORATORY, TECH [facility] INF 3K [facility] 03/21/2020 1:30 PM Morris Dozier MD [facility] HEM ONC [facility] Outpatient Services/Studies: CBC (with Diff) Standing Status: Future Standing Exp. Date: 03/01/21 Comprehensive metabolic panel (non-fasting) Standing Status: Future Standing Exp. Date: 03/01/21 Prealbumin Standing Status: Future Standing Exp. Date: 09/19/20 Referral for Home Tube feeds Order Comments: Mary Kay Gonzalez [address] [facility] [id number] [place] [address] Medicaid No Narrative: Patient has a feeding tube and requires tube feedings and supplies necessary to maintain nutritional support . VENDOR: [place], [place] or Supporting Diagnosis: GIST Hgt: 159 [...] Patient location post discharge Friends home in [facility] Service requested Tube feeds Start date 03/01/2020 Responsible MD post discharge contact info PCP and Dr. 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 [id number] All A agencies which cover the area of patient's residence have been reviewed, either verbally or in writing, and patient/family have chosen the home health care agency noted Question Response Notes Agency name and contact information [facility]/REPLACED BY [facility] Patient location post discharge Friend's home in [place], [place] What services are requested Registered Nurse Start date 03/01/2020 Responsible MD post discharge contact info PCP and Dr. Galdamez Instructions Given to Patient at Discharge:. An After Visit Summary was printed and given to the patient. Patient Instructions [facility] Department of General Surgery Discharge Instructions CALL [...] with the Surgery nurses. The number is [phone]. - During the night or weekends call the [facility] oil recovery operator at [phone] and ask to speak to the surgery resident reconciliation clerk for general surgery. Please note: Your surgeon may not be Manager Engagement, especially during the night or on weekends, so be ready to describe yourself and your surgery when you call. Follow up appointments: Future Appointments Date Time Provider Department Center 03/06/2020 8:[address] [facility] HEM ONC [facility] 03/20/2020 1:00 PM LAB, THREE L Lab 3L [facility] 03/20/2020 2:00 PM Carlee Galdamez MD [facility] SURG [facility] 03/20/2020 2:[address] [facility] SURG [facility] 03/21/2020 12:15 PM LABORATORY, TECH [facility] INF 3K [facility] 03/21/2020 1:30 PM Morris Dozier MD [facility] HEM ONC [facility] [x] Follow-up appointment with General Surgery has already been scheduled [] A request for a follow-up appointment has been made and you should receive information via phone/mail in the next week. If you do not hear anything, please call the clinic at [phone] to confirmor reschedule. If you need a prior authorization, please call the General Surgery Clinic nurses [phone] for prior authorizations assistance General Instructions None [...] Wheeler MD Signed: Britany Villanueva APRN [facility] Surgical Oncology Service Team Pager #[phone] 03/01/2020 10:46 AM documented in this encounter Discharge Instructions Patient InstructionsBritany Villanueva APRN - 02/23/2020 12:07 PM EDT [facility] Department of General Surgery Discharge Instructions CALL [...] with the Surgery nurses. The number is [phone]. - During the night or weekends call the [facility] oil recovery operator at [phone] and ask to speak to the surgery resident reconciliation clerk for general surgery. Please note: Your surgeon may not be Manager Engagement, especially during the night or on weekends, so be ready to describe yourself and your surgery when you call. Follow up appointments: Future Appointments Date Time Provider Department Center 03/06/2020 8:[address] [facility] HEM ONC [facility] 03/20/2020 1:00 PM LAB, THREE L Lab 3L [facility] 03/20/2020 2:00 PM Carlee Galdamez MD [facility] SURG [facility] 03/20/2020 2:[address] [facility] SURG [facility] 03/21/2020 12:15 PM LABORATORY, TECH [facility] INF 3K [facility] 03/21/2020 1:30 PM Morris Dozier MD [facility] HEM ONC [facility] [x] Follow-up appointment with General Surgery has already been scheduled [] A request for a follow-up appointment has been made and you should receive information via phone/mail in the next week. If you do not hear anything, please call the clinic at [phone] to confirmor reschedule. If you need a prior authorization, please call the General Surgery Clinic nurses [phone] for prior authorizations assistance AttachmentsThe following attachments cannot be sent through Care Everywhere. Feeding Tube: General Info ([place] Islander)documented in this encounter Medications at Time of Discharge Medication Sig Dispensed Refills Start Date End Date traMADoL (Ultram) 50 mg 1 tablet 0 03/01/2020 Tablet sucralfate (Carafate) 1 Every 6 hours. 0 07/28/19 20 gram Tablet ookold-urhcefwt-nzrjfas as directed 0 03/01/2020 (Audrey 24) 24,000-76,000 [...] every 6 hours as needed for Pain. tnlsuz-rgbhwmha-fuocexm Take 1-2 capsules by 270 capsule 3 [...] Villanueva APRN Surgical Oncology Service Team Pager #[phone] 03/01/20 11:03 AM ? Marielos Nash RN - 03/01/2020 10:46 AM EDT OFFICE OF CARE MANAGEMENT Explosive Ordnance Disposal Technician Discharge Note Marielos Huynh RN reviewed record and discussed patient with Care Team. Patient plan of care discussed in multidisciplinary rounds and assessment for continuing care and discharge needs. Diagnosis: GIST (gastrointestinal stromal tumor), malignant LOS Hospital: 7 days INSURANCE: Payor: [employer] [facility] / Plan: [email or web address] / Product Type: *No Product type* / SECONDARY INSURANCE: N/A DECISION MAKER: Attempt Cardiopulmonary Resuscitation - Inpatient <no information> Patient is medically ready for discharge today. [facility] confirmed nursing visit today at 2pm to support tube feeds. [facility] confirmed a 1pm delivery time for tube feed supplies. Current Referral in place: [facility] and NE. NE teach completed on 02/29/2020 per Jenn. Transportation: Friend will drive patient home via private vehicle when medically ready. Explosive Ordnance Disposal Technician to follow with team and family to [...] EDT Infusion Resource Center Follow up Note: [facility] Requested same day visit with Paola from [facility]/ on day of discharge so that pt's friend can be available for refresher teach with VNA services. Hospital teaching was completed today with Mary Kay, she did well and feels able to follow teaching sheet independently. Delivery of TF pump and supplies was requested for 1pm delivery time to friends home in [facility] for 03/01. Infusion Resource Center [phone] - 02/29/2020 8:00 AM [...] and minerals. monitor weight trends Continue creon Discussed akanksha Villanueva APRN All Active TF Orders: Peptamen AF Goal rate is 52 ml per hour x16 hours daily. At goal, this will provide 832 ml formula, 998 calories, 63 grams protein, 672 ml water from formulaand 66% of RDI's for vitamins and minerals Active Orders Diet Regular diet Frequency: Effective Now Number of Occurrences: Until Specified Order Comments: 2 portion Enteral access: J-tube Oxygen Therapy/airway: O2 [...] encounter: 52.3 kg (115 lb 4.8 oz). [place] Body Weight: 113 lbs / 51.3 kg [...] (NFPE): Not performed Protein-calorie Malnutrition: Not identified (Celestino et al, JPEN J Parenteral Enteral Nutr. 2011;36(3): 273-83) Nutrition to continue to follow up while inpatient Marline Avendaño RD Pager #:[phone] Lidia Jacobs MD - 02/29/2020 7:39 AM EDT Surgical Oncology Inpatient Progress Note Patient Name: Mary Kay JAMES; Age: 2 1960; 59 y.o. Room/Bed: [address] [place] [address]A Today's Date: 02/29/20 ID: Mary Kay Gonzalez [...] therefore quite straightforward. Her pancreas was completely bnvhhr-wehqzbfdq-spin gland and small duct approximately 1 mm in diameter. We elected to stent the pancreatic anastomosis using an externalized 5 [place] pancreatic duct stent which was passed approximately 10 cm down into the pancreatic remnant body and tail. A 19 Citizen [place] Luly drain was placed in through a right lateral stab incision and passed posterior to the bile duct anastomosis and then anterior to the pancreatic anastomosis. We created an omental pedicle flap from the falciformligament and used this to cover the korin hepatis dissection. A 12 [place] feeding jejunostomy tube was placed approximately 30 [...] Tolerating PO with durable ROBF. Cycle TF [id number]. TF teaching today. Transition remaining meds to [...] Jacobs MD Surgical Oncology Service Team Pager #[phone] 02/29/20 7:40 AM Geneva Palmer - 02/29/2020 7:27 AM EDKaren: MEDICAL STUDENT PROGRESS NOTE Surgical Oncology Inpatient Progress Note Patient Name: Mary Kay JAMES; Age: 2 1960; 59 y.o. Room/Bed: [address] [place] [address] Today's Date: 02/29/20 ID: Mary Kay Gonzalez [...] therefore quite straightforward. Her pancreas was completely clwfpu-vkfkcfbsq-yfjr gland and small duct approximately 1 mm in diameter. We elected to stent the pancreatic anastomosis using an externalized 5 [place] pancreatic duct stent which was passed approximately 10 cm down into the pancreatic remnant body and tail. A 19 [place] Luly drain was placed in through a right lateral stab incision and passed posterior to the bile duct anastomosis and then anterior to the pancreatic anastomosis. We created an omental pedicle flap from the falciformligament and used this to cover the korin hepatis dissection. A 12 Citizen [place] feeding jejunostomy tube was placed approximately 30 [...] 4.8 oz) Labs: Recent Labs 02/29/20 0135 02/28/2014802/27/20218 WBC 8.3 6.2 8.4 HGB 11.6* 10.0* 11.1* HCT 34.3* 31.1* 34.5* PLATELET 342 285 308 Recent Labs 02/29/20 0135 02/28/209 02/27/20218 NA 142 142 142 K 4.1 3.7 4.0 CL 107 108* 108* CO2 26 27 27 BUN 9 5* 6* CREATININE 0.26* 0.35* 0.36* GLUCOSE 131 112 123 CALCIUM 8.4* 8.1* 8.3* MAGNESIUM 0.79 0.73 0.81 PHOS 3.6 3.5 2.7 Recent Labs 02/28/20 01402/27/20 0219 02/26/20 0204 02/25/20 0239 02/24/20 014 AMYLASE 32 39 103* 201* 401* JOSE [...] status, Attempt Cardiopulmonary Resuscitation - Inpatient Signed: [facility] Surgical Oncology Service Team Pager #[phone] 02/29/20 7:[address] - 02/28/2020 12:34 PM EDT Nutrition [...] encounter: 52.3 kg (115 lb 4.8 oz). [place] Body Weight: 113 lbs / 51.3 kg [...] Dueñas RD) Nutrition intake and intake history/Interview: Visited with patient this afternoon, friend at bedside. Patient reports she has a fast metabolism and finds it hard to keep on weight. Patient reports ptashe had a good stable appetite and PO [...] up while inpatient SVITLANA MCINTYRE RD Pager #:[phone] Jaycee Sweet - 02/28/2020 10:35 AM EDT Surgical Oncology Inpatient Progress Note Patient Name: Mary Kay JAMES; Age: 2 1960; 59 y.o. Room/Bed: [address] [place] [address]A Today's Date: 02/28/20 ID: Mary Kay Gonzalez [...] therefore quite straightforward. Her pancreas was completely eykqmm-cujmrtzma-slio gland and small duct approximately 1 mm in diameter. We elected to stent the pancreatic anastomosis using an externalized 5 [place] pancreatic duct stent which was passed approximately 10 cm down into the pancreatic remnant body and tail. A 19 Citizen [place] Luly drain was placed in through a right lateral stab incision and passed posterior to the bile duct anastomosis and then anterior to the pancreatic anastomosis. We created an omental pedicle flap from the falciformligament and used this to cover the korin hepatis dissection. A 12 Citizen [place] feeding jejunostomy tube was placed approximately 30 [...] SWEET MD Surgical Oncology Service Team Pager #[phone] 02/28/20 10:35 AM Kaur Varela RN - 02/28/2020 10:05 AM EDT Office of Care Management (OCM /Caremanger (CM)/ Discharge planning ) ServiceSurg / Onc Pager # [phone] e-DH reviewed. Report received from IDDRs Patient plan of care discussed with Team and Nursing to assessment for continuing care and dischargeneeds. [facility]: 5 DECISION MAKER: Attempt Cardiopulmonary Resuscitation - Inpatient, <no information> Ongoing Issues:DAvanced to 1/2 portion diet today , J/P drain out today, will cycle tube feeds tomorrow . Anticipate home on Fri with VNA and [facility] Current Referral in place: [facility] PHONE: [phone] FAX: [phone] Reinforce Tube feed teaching will need same day visit, Need for same day visit noted in MARCELLA with anticipated discharge date of 03/01 per team. [place], [place] or For tube feeds . Requested a teach for Wednesday 02/28 VNA - Providing Services for : ( RN, .) Barriers to Discharge: None at this time Family Concerns: None at this time Anticipate Transport at time of discharge: family Plan: CM will continue to follow for coordination of care and to facilitate discharge planning. Kaur Varela RN CM Pager # [phone] Britany Villanueva APRN - 02/28/2020 9:24 AM [...] Vol (ml) 02/23, POD 1 2878 110 10/, POD 2 419 335 17, POD 3 142 605 02/26, POD 4 53 295 02/27, POD 5 36 415 ?? Signed: Britany Villanueva APRN Surgical Oncology Service Team Pager #[phone] 02/28/20 9:25 AM Elizabeth Marie MD - [...] is tolerating a Clear Liquid Diet (with [place]). Her epidural insertion site is free from [...] infection. Epidural solution wasted with Valeria MIR. I, IRINA E ALEXANDRE, RN, have performed the documentation for this encounter in the presence of and acting as a scribe for Dr. Elizabeth Marie. APS Nurse: Irina Washington RN Fellow:: Irina Gerber MD Attending Physician:: Elizabeth Marie MD I performed the above scribed service and agree with the accuracy of the note. ELIZABETH MARIE MD [facility] [place] - 02/28/2020 7:30 AM EDTSumestefany: MEDICAL STUDENT PROGRESS NOTE Surgical Oncology Inpatient Progress Note Patient Name: Mary Kay Gonzalez ; Age: 2 1960; 59 y.o. Room/Bed: [address] [place], [place] [address] Today's Date: 02/28/20 ID: Mary Kay Gonzalez [...] therefore quite straightforward. Her pancreas was completely nvoiow-xipbltmmw-nstn gland and small duct approximately 1 mm in diameter. We elected to stent the pancreatic anastomosis using an externalized 5 [place] pancreatic duct stent which was passed approximately 10 cm down into the pancreatic remnant body and tail. A 19 Citizen [place] Luly drain was placed in through a right lateral stab incision and passed posterior to the bile duct anastomosis and then anterior to the pancreatic anastomosis. We created an omental pedicle flap from the falciformligament and used this to cover the korin hepatis dissection. A 12 Citizen [place] feeding jejunostomy tube was placed approximately 30 [...] 32.6* PLATELET 285 308 271 Recent Labs 02/28/2014802/27/2021802/26/20203 NA 142 142 138 K 3.7 4.0 [...] PULM: Encourage OOB/IS GI/FEN: Clear Liquid (With [place]); Advance to Half Portion Regular diet. Continue advancing TF. MIVF50/hr; will hep lock once at goal on TF or t RENAL: UOP adequate. ENDO: None HEME: DVT ppx enoxaparin ID: S/p periop antibiotics. MSK: OOB with PT/OT PPX: PPI, IS, SCDs LINES: PIV, Epidural, JOSE Drain, J-Tube DISPO: Floor status, Attempt Cardiopulmonary Resuscitation - Inpatient Signed: [place] [facility] Surgical Oncology Service Team Pager #[phone] 02/28/20 7:29 AM IT Zully Reich RN - 02/27/2020 9:59 PM EDT Images from the original note were not included. Infiltration/Extravasation Scale Mary Kay Gonzalez [id number] 208/208-A Infiltration appearance: Infiltration harm % for [...] Name of MD contacted: provider covering page [phone] 9:59 PM Name of RN contacted: lay Gonzalez RN 9:59 PM Name of Pharmacist if consulted: n/a 9:59 PM Plastics Provider contacted: no 9:59 PM Name of Plastics MD (if consulted): n/a SURGICAL ELASTIC KNITTER CARING FOR THIS PATIENT WILL CONTINUE TO [...] ; Age: 2 1960; 59 y.o. Room/Bed: 208/208-A Today's Date: 02/27/20 ID: Mary Kay Gonzalez [...] therefore quite straightforward. Her pancreas was completely zebllx-usmotjedk-oegb gland and small duct approximately 1 mm in diameter. We elected to stent the pancreatic anastomosis using an externalized 5 [place] pancreatic duct stent which was passed approximately 10 cm down into the pancreatic remnant body and tail. A 19 Citizen [place] Luly drain was placed in through a right lateral stab incision and passed posterior to the bile duct anastomosis and then anterior to the pancreatic anastomosis. We created an omental pedicle flap from the falciformligament and used this to cover the korin hepatis dissection. 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 MIVF down to [...] SWEET MD Surgical Oncology Service Team Pager #[phone] 02/27/20 9:00 AM Surgery attending addendum I [...] Reid Galdamez MD 02/27/2020 10:49 AM Elizabeth Marie MD - 02/27/2020 8:31 AM EDT Acute [...] GOAL OUTCOME EVALUATION:? Elizabeth Marie MD - 02/26/2020 12:03 PM EDT [...] ; Age: 2 1960; 59 y.o. Room/Bed: 208/208-A Today's Date: 02/26/20 ID: Mary Kay Gonzalez [...] therefore quite straightforward. Her pancreas was completely pbjscf-qfcnmppig-rfds gland and small duct approximately 1 mm in diameter. We elected to stent the pancreatic anastomosis using an externalized 5 [place] pancreatic duct stent which was passed approximately 10 cm down into the pancreatic remnant body and tail. A 19 [place] Luly drain was placed in through a right lateral stab incision and passed posterior to the bile duct anastomosis and then anterior to the pancreatic anastomosis. We created an omental pedicle flap from the falciformligament and used this to cover the korin hepatis dissection. 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 ELIZABETH MARIE MD Britany Villanueva APRN - 02/25/2020 9:37 AM EDT Surgical Oncology Inpatient Progress Note Patient Name: Mary Kay JAMES; Age: 2 1960; 59 y.o. [facility]: 02/25/20 ID: Mary Kay Gonzalez [...] therefore quite straightforward. Her pancreas was completely duhmgn-rtwqeyheo-kpfb gland and small duct approximately 1 mm in diameter. We elected to stent the pancreatic anastomosis using an externalized 5 [place] pancreatic duct stent which was passed approximately 10 cm down into the pancreatic remnant body and tail. A 19 [place] Luly drain was placed in through a right lateral stab incision and passed posterior to the bile duct anastomosis and then anterior to the pancreatic anastomosis. We created an omental pedicle flap from the falciformligament and used this to cover the korin hepatis dissection. A 12 [place] feeding jejunostomy tube was placed approximately 30 [...] electrolytes PRN; change to MIVF today of [id number] @75cc/hr. Standing colace and senna. RENAL: UOP [...] Villanueva APRN Surgical Oncology Service Team Pager #[phone] 02/25/20 9:37 AM Geneva Palmer - 02/25/2020 7:25 AM EDKaren: MEDICAL STUDENT PROGRESS NOTE Surgical Oncology Inpatient Progress Note Patient Name: Mary Kay Gonzalez ; Age: 2 1960; 59 y.o. [facility] Date: 02/25/20 ID: Mary Kay Gonzalez [...] therefore quite straightforward. Her pancreas was completely jpbuse-mhjilaiud-krsr gland and small duct approximately 1 mm in diameter. We elected to stent the pancreatic anastomosis using an externalized 5 [place] pancreatic duct stent which was passed approximately 10 cm down into the pancreatic remnant body and tail. A 19 [place] Luly drain was placed in through a right lateral stab incision and passed posterior to the bile duct anastomosis and then anterior to the pancreatic anastomosis. We created an omental pedicle flap from the falciformligament and used this to cover the korin hepatis dissection. A 12 [place] feeding jejunostomy tube was placed approximately 30 [...] Attempt Cardiopulmonary Resuscitation - Inpatient Signed: Geneva [facility] Surgical Oncology Service Team Pager #[phone] 02/25/20 7:16 AM Jaycee Sweet 02/24/2020 11:45 [...] therefore quite straightforward. Her pancreas was completely zveqei-zwxncajok-qwwl gland and small duct approximately 1 mm in diameter. We elected to stent the pancreatic anastomosis using an externalized 5 [place] pancreatic duct stent which was passed approximately 10 cm down into the pancreatic remnant body and tail. A 19 [place] Luly drain was placed in through a right lateral stab incision and passed posterior to the bile duct anastomosis and then anterior to the pancreatic anastomosis. We created an omental pedicle flap from the falciformligament and used this to cover the korin hepatis dissection. A 12 [place] feeding jejunostomy tube was placed approximately 30 [...] with zofran x1 Tired, poor sleep overnight / neighbor Denies n/v/cp/soa In Hospital Issues: Active [...] 11.1* HCT 34.6* PLATELET 302 Recent Labs 10/15/20 0142 NA 132* K 4.3 CL 99 [...] SWEET MD Surgical Oncology Service Team Pager #[phone] 02/24/20 11:45 AM Elizabeth Marie MD - [...] of the note. ELIZABETH MARIE MD Celina Dueñas, DOMINICK - 02/24/2020 7:53 AM EDT Nutrition Consult [...] Team paged with nutrition recommendations. Pager # [phone]. All Active TF Orders: Tubefeeding Orders (From [...] encounter: 52.3 kg (115 lb 4.8 oz). [place] Body Weight: 113 lbs / 51.3 kg [...] identified (EDMUNDO Alegria J Parenteral Enteral Nutr. 2012 September;36(3): 273-83) Nutrition to continue to follow up while inpatient Celina Dueñas RD Pager #:[phone] Geneva Martinez - 02/24/2020 7:37 AM Shelly: MEDICAL STUDENT PROGRESS NOTE Surgical [...] therefore quite straightforward. Her pancreas was completely reuqwf-xmonzfqgy-jgnt gland and small duct approximately 1 mm in diameter. We elected to stent the pancreatic anastomosis using an externalized 5 [place] pancreatic duct stent which was passed approximately 10 cm down into the pancreatic remnant body and tail. A 19 [place] Luly drain was placed in through a right lateral stab incision and passed posterior to the bile duct anastomosis and then anterior to the pancreatic anastomosis. We created an omental pedicle flap from the falciformligament and used this to cover the korin hepatis dissection. A 12 [place] feeding jejunostomy tube was placed approximately 30 [...] is well-controlled via epidural. Her JOSE amylase [id number], which is reassuring on Post-Op day 1. [...] Attempt Cardiopulmonary Resuscitation - Inpatient Signed: [place] [facility] Surgical Oncology Service Team Pager #[phone] 02/24/20 7:29 AM Jaycee Sweet - 02/23/2020 [...] Will monitor closely. Wellness check by covering hospitality intern overnight. Flush NGT per orders; CLWS. [...] - Report called to CLARKE Fernandez [address] [place]. Bed still cleaning. documented in this encounter [...] [facility] Confirmed with Paola from [facility] that patient will be seen day of discharge 03/01/20 @ 4pm Hospital teaching occurred 02/29/20 Delivery of IV supplies will occur 03/01/20 @ 5pm.. To be delivered to patients verified home address. [facility] [phone] Plan of Care - Alina Osman RN [...] ULTRASOUND performed by Pedrito Arrieta MD at [facility] ENDOSCOPY ??? PRO INSERT TUBE-BOWEL, ENTERAL ALIMENT N/A 02/23/2020 ?? @JEJUNOSTOMY TUBE PLACEMENT (WRVU 2.62) performed by Carlee Galdamez MD at [facility] MAIN OR ??? PRO OMENTAL FLAP, INTRA-ABDOMINAL ?? 02/23/2020 ?? @OMENTAL FLAP, INTRA-ABDOMINAL (WRVU 6.54) performed by Carlee Galdamez MD at [facility] OR ??? PRO PART REMV PANC, PROX+PART DUOD+ANAST N/A 02/23/2020 ?? @PANCREATECTOMY, WHIPPLE TYPE WITH PANCREATOJEJUNOSTOMY (WRVU 52.79) performed by Carlee Galdamez MD at [facility] MAIN OR ??? PRO UNLISTED PX PNCRS N/A 02/23/2020 ?? PANCREATIC STENT INSERTION (WRVU 18.28) performed by Carlee Galdamez MD at [facility] MAIN OR ?? Social History: Home Setup: pt lives alone in a one level ranch. 3 [address] with no railing. Bathroom has a tub shower. Functional Status: independent with ADLs, IADLs, and functional mobility. 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 Time IN / OUT: 6641-4838 Total Evaluation Minutes, Physical Therapy: 15 Peyton Mir PT Pager: [phone] Physical Therapy Inpatient Rehabilitation Department Plan of Care - Jesse Lizarraga RN - 02/28/2020 4:29 [...] Admission order confirmed/dated: Carlee Galdamez MD 02/08/20 3771 Current Decision-Making Capacity: Self, A&Ox3, Full Capacity Advance Care Planning: Attempt Cardiopulmonary Resuscitation - Inpatient <no information> If AD's have not been completed Franko Morenoarty would be surrogate decision maker per [place] surrogate decision making law. (Only good for 90 days) Any patient receiving care at [facility] must abide by [place] law. The hierarchy for surrogate decision making [...] (i) The agent with financial power of replanting machine crew or a conservator appointed in accordance with [...] little while when she leaves. [address] [facility] [address] Social & Family Supports/Community Resources: son and friends Extended Emergency Contact Information Primary Emergency Contact: Des Wheeler MD Relation: Friend Secondary Emergency Contact: PAUL FOX Mobile Relation: Friend Behavioral Health History: denies Other Pertinent/Service Specific Information: No Health/Prescription Coverage: Primary Insurance: [employer] Payor: [facility] [employer] / Plan: [employer] / Product Type: *No Product type* / Secondary Insurance: N/A Prescription Coverage: [facility] Preferred Pharmacy: [address] [facility] [address] [facility] [address] Primary Care Provider: Irving Wheeler MD [phone] Patient/Caregiver Goals of Treatment: to have tumor [...] to [facility] and [facility] PHONE: [phone] FAX: [phone]. [place], [place] for tube feed supplies or Expected date of discharge: 03/01/2020. Referral routed to the [employer] for matching with agency/vendor and to provide [...] transition of care planning. Marielos Huynh RN advertising project manager Pager: [phone] Plan of Care - Bree Hope OT [...] ULTRASOUND performed by Pedrito Arrieta MD at [facility] ENDOSCOPY ??? PRO INSERT TUBE-BOWEL, ENTERAL ALIMENT N/A 02/23/2020 @JEJUNOSTOMY TUBE PLACEMENT (WRVU 2.62) performed by Carlee Galdamez MD at [facility] MAIN OR ??? PRO OMENTAL FLAP, INTRA-ABDOMINAL 02/23/2020 @OMENTAL FLAP, INTRA-ABDOMINAL (WRVU 6.54) performed by Carlee Galdamez MD at [facility] MAIN OR ??? PRO PART REMV PANC, PROX+PART DUOD+ANAST N/A 02/23/2020 @PANCREATECTOMY, WHIPPLE TYPE WITH PANCREATOJEJUNOSTOMY (WRVU 52.79) performed by Adri Galdamez MD at [facility] MAIN OR ??? PRO UNLISTED PX PNCRS N/A 02/23/2020 PANCREATIC STENT INSERTION (WRVU 18.28) performed by Carlee Galdamez MD at [facility] MAIN OR Social History: Home Setup: pt lives alone in a one level ranch. 3 [address] with no railing. Bathroom has a tub shower. Functional Status: independent with ADLs, IADLs, and functional mobility. 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 Bree Hope OT Pager [phone] Occupational Therapy Rehabilitation Department Plan of Care - Peyton Mir, PT - 02/24/2020 10:56 AM EDT Physical [...] ULTRASOUND performed by Pedrito Arrieta MD at [facility] ENDOSCOPY ??? PRO INSERT TUBE-BOWEL, ENTERAL ALIMENT N/A 02/23/2020 @JEJUNOSTOMY TUBE PLACEMENT (WRVU 2.62) performed by Carlee Galdamez MD at [facility] MAIN OR ??? PRO OMENTAL FLAP, INTRA-ABDOMINAL 02/23/2020 @OMENTAL FLAP, INTRA-ABDOMINAL (WRVU 6.54) performed by Carlee Galdamez MD at [facility] MAIN OR ??? PRO PART REMV PANC, PROX+PART DUOD+ANAST N/A 02/23/2020 @PANCREATECTOMY, WHIPPLE TYPE WITH PANCREATOJEJUNOSTOMY (WRVU 52.79) performed by Adri Galdamez MD at [facility] MAIN OR ??? PRO UNLISTED PX PNCRS N/A 02/23/2020 PANCREATIC STENT INSERTION (WRVU 18.28) performed by Carlee Galdamez MD at [facility] MAIN OR Active Non-Hospital Problems Diagnosis ??? Anemia ??? Disorder of thyroid gland ??? Arthritis ??? Tinnitus ??? Vitamin D deficiency ??? Osteoarthrosis ??? 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 Precautions/Special Considerations: Epidural, HEALTH CARE ATTORNEY, NG tube, J tube, JOSE drain, pancreatic [...] Pt seen for evaluation today. Pain- c/o /10 at midline incision with amb and bed mobility Vital Signs- VSS throughout session, RA, BP- 108/69 sitting Mental Status: alert, oriented to person, place, and time Vision: Grossly intact Skin: midline incision, healing well Musculoskeletal: ROM: WFL'S Strength: mild generalized weakness from surgery Sensation: grossly intact Bed Mobility: Supine to Sit: NA, educated on log rolling Sit to Supine: sup fjj-vcqyocrty-gzzznk. Transfers: Sit to Stand: CTG/sup, cues for [...] in this evaluation. Time IN / OUT: 0818-6972 Total Evaluation Minutes, Physical Therapy: 30 Peyton Mir PT Pager: [phone] Physical Therapy Inpatient Rehabilitation Department Plan of [...] Galdamez MD - 02/23/2020 2:30 PM EDT [facility] Operative Note Patient Name: Mary Kay Gonzalez : [id number] MR#: [id number] Case Date: 02/23/2020 Surgeon: Surgeon(s) and Role: [...] therefore quite straightforward. Her pancreas was completely logxos-sgoorvehk-hrat gland and small duct approximately 1 mm in diameter.We elected to stent the pancreatic anastomosis using an externalized 5 [place] pancreatic duct stent which was passed approximately 10 cm down into the pancreatic remnant body and tail. A 19 [place] Luly drain was placed in through a right lateral stab incision and passed posterior to the bile duct anastomosis and then anterior to the pancreatic anastomosis. We created an omental pedicle flap from thefalciform ligament and used this to cover the korin hepatis dissection. A 12 [place] feeding jejunostomy tube was placed approximately 30 [...] Collection Info Order Time SPECIMEN TO PATHOLOGY [id number] MALIGNANT GIST OF THE DUODENUM gallbladder excision 02/23/2020 9:25 AM Time specimen removed from patient: 9:25 AM Number of tissue samples (in container) 1 SPECIMEN TO PATHOLOGY 68853 MALIGNANT GIST OF THE DUODENUM common hepatic artery lymph node excision 02/23/2020 9:48 AM Time specimen removed from patient: 9:47 AM Number of tissue samples (in container) 1 PATHOLOGY ORDER UPDATE [id number] 02/23/2020 9:48 AM Additional information: Cancellation Enter requested changes: cancel order eD-H Order Id number [id number] SPECIMEN TO PATHOLOGY *yellow= neck of pancreas--frozen on yellow please Blue= vascular groove Clarence= SMA margin [id number] MALIGNANT GIST OF THE DUODENUM head of [...] pursuant to and in compliance with the [facility] operative policies. Her abdomen and lower chest [...] was divided with two firings of the [place] stapler (green load with SEAM G UARD). The pancreas was prepared for division. Hemostatic 3-0 Silk sutures were placed into the superior and inferior distal margins of the gland. The gland was divided perpendicular to its long axis at the level of the neck with a 10 blade. There was pulsatile bleeding from the armazpv-lv-wxeu of the pancreas. Hemostasis was obtained with needle tip electrocautery. The gland consistency was soft. The pancreatic duct measured 1 mm in size. The lateral aspect of the portal vein was dissected carefully to mobilize the head of the pancreas using bipolar technique. The proximal jejunum was prepared for division. The jejunum was divided using the [place] stapler (white load). The mesentery from this [...] the posterior outer layer. Next a pancreaticojejunostomy jedz-lc-xznmiz anastomosis was created. A small entero jonny [...] jejunum to completethe 'U-stich'. We used a [place] Eye needle to pass the other end [...] mm. The foregut reconstruction was a antecolic jrgr-ej-bsgh, Billroth II type, gastrojejunostomy anastomosis. This was accomplished with the [place] stapler (blue load). The common gastroenterotomy was closed in 2 layers with an inner layer of 3-0 PDS canal stitches. The outer layer was interrupted 3-0 silk Lembert stitches. The anastomosis was found to be widely patent and viable appearing. A 19 [place] luly closed suction drain was placed through [...] pancreatic anastomosis. We then placed a 12 [place] feeding jejunostomy tube through a needle tip incision in the right midabdomen and using Seldinger technique over a wire with a peel-away sheath placed a 12 [place] J-tube down through the abdominal wall, and through a needle tip enterotomy along the antimesenteric aspect of the jejunum and then into the jejunum. We then created a short Witzel tunnel using 3-0 silk Lembert stitches and secured the jejunum to the anterior abdominal wall using 3-0 silk stay stitches. The bulbof the 12 [place] J-tube was deliberately removed prior to insertion [...] side gastrojejunostomy. JOSE drain placement location: 19 [place] Luly drain positioned in Morison's pouch, posterior to the bile duct anastomosis and then anterior to the pancreatic anastomosis draining both anastomoses. Tubes: PD stent to gravity and 12 [place] J-tube Times: Case start time: 8:30 AM [...] new suction and cautery at closure: No Mhonpkuvh-lprmrsnex-wxblshgtcz abdominal cavity wash: No Ayiggvzpz-mbztsbxrb-pmhuyzwsvu wound wash: Irrisept Attestation: Case Date: 02/23/2020 I was present and I participated during the entire procedure (does not need to include opening and closing). CARLEE GALDAMEZ MD 02/23/2020 documented in this encounter Plan of Treatment Upcoming Encounters Date Type Specialty Care Team Description 02/15/2022 Office Visit Hematology and Oncology Morris Dozier MD [facility] ONCOLOGY [place], [place] 0375 (Wo rk) documented as of this encounter Goals Goal Patient Goal Associated Recent Patient-Stated? Author Type Problems Progress DH Home Medication Patient No [place], Compliance and Facing Brandt Morin Understanding Action Plan [facility] Note: Formatting of this note might be [...] athologist Signature Prealbumin 24 20 - 40 [facility] mg/dL [facility] Comment: Prealbumin levels are generally lower in the pediatric population; adult concentrations are usually attained near puberty. Specimen Anatomical Collection Method Collection Time Receive d Time (Source) Location / / Volume Laterality Blood specimen 03/20/2020 1:23 PM 020 1:58 (specimen) EST PM EST Resulting Agency Comment Spec In Lab Britany E Rich PEREZ CHEMISTRY ORDERABLES Performing Organization Address City/State/[place] [address] (ABNORMAL) Comprehensive metabolic panel (non-fasting) (03/20/2020 1:23 PM EST) athologist Signature Glucose Lvl 96 65 - 199 [facility] mg/dL [facility] Comment: Diabetes: >=200 mg/dL plus symp toms BUN 21 (H) 8 - 18 mg/dL [facility] Creatinine 0.53 (L) 0.70 - 1.20 mg/dL [facility] Sodium 139 135 - 145 mmol/L [facility] Potassium 4.6 3.5 - 5.0 mmol/L [facility] Comment: Please note: ??Patients with WBC >100,00 0 may have falsely elevated Potassium levels. ??For accurate Potassium quantif ication in these patients send serum separator tube (gold top) for subsequent determinations. ??Contact the Clinical Chemistry Laboratory if there are any qu estions. Chloride 102 98 - 107 mmol/L [facility] CO2 28 22 - 31 mmol/L [facility] Anion Gap 9 5 - 15 mmol/L [facility] Calcium 9.4 8.5 - 10.5 mg/dL [facility] Total Protein 6.7 6.1 - 8.0 gm/dL [facility] Albumin 4.3 3.2 - 5.2 gm/dL [facility] AST 25 0 - 30 unit/L [facility] ALT 36 (H) 0 - 30 unit/L [facility] Alk Phos 72 35 - 105 unit/L [facility] Total Bilirubin 0.2 0.2 - 1.3 mg/dL [facility] Estimated GFR 105 >=60 mL/min/1.73 m?? [facility] Comment: The eGFR was calculated using the CKD-EP I equation. As with all creatinine based estimates of kidney function, eGFR values calculated with the CKD-EPI equation are not accurate in patients wi th acute kidney failure, extremes of body mass or the acutely ill. http://[employer]/[facility] eGFR 122 >=60 mL/min/1.73 m?? [facility] Comment: The eGFR was calculated using the CKD-EP I equation. As with all creatinine based estimates of kidney function, eGFR values calculated with the CKD-EPI equation are not accurate in patients wi th acute kidney failure, extremes of body mass or the acutely ill. http://[employer]/[facility] Specimen Anatomical Collection Method Collection Time Receive d Time (Source) Location / / Volume Laterality Blood specimen 03/20/2020 1:23 PM 020 1:58 (specimen) EST PM EST Resulting Agency Comment Spec In Lab Britany Villanueva APRN CHEMISTRY ORDERABLES Performing Organization Address City/State/ZIP Code Phon e Number [address] POCT Glucose (03/01/2020 8:03 AM EDT) P athologist Signature POC Glucose 134 65 - 199 [facility] mg/dL [facility] Comment: Supplemental ranges: <140 mg/dL before meals <180 mg/dL all other times of the day Specimen Anatomical Collection Method Collection Time Receive d Time (Source) Location / / Volume Laterality Blood specimen 03/01/2020 8:03 AM 020 8:03 (specimen) EDT AM EDT Carlee Galdamez MD POINT OF CARE TEST ORDERABLE S Performing Organization Address City/State/ZIP Code Phon e Number [address] (ABNORMAL) Differential, Automated (03/01/2020 3:54 AM EDT) Patholo gist Method Time Signature Neutrophils % 71.7 % [facility] Neutr Abs (ANC) 7.13 (H) 1.70 - [facility] 6.10 [facility] x10(3)/[facility] L LABORATORY Lymphocytes % 17.1 % [facility] Lymphocytes Abs 1.7 0.9 - 3.2 [facility] x10(3)/[facility] LABORATORY Monocytes % 9.0 % [facility] Monocyte Abs 0.9 0.3 - 0.9 [facility] x10(3)/[facility] LABORATORY Eosinophils % 1.4 % [facility] Eosinophils Abs 0.1 0.0 - 0.4 [facility] x10(3)/[facility] LABORATORY Basophils % 0.3 % [facility] Basophils Abs 0.0 0.0 - 0.1 [facility] x10(3)/[facility] LABORATORY Immature Gran % 0.50 % [facility] Comment: Immature granulocytes(IG's)percentage an d absolute count will include metamyelocytes, myelocytes, and promyelo cytes. Blood smears from CBCs yielding IG's will be scanned manually for concor dance. If this scan disagrees with the automated IG or if promyelocytes are not ed, a manual differential will be performed. Teresa Gran Abs 0.05 (H) 0.00 - 0.04 x10(3)/[facility] LABORATORY Specimen Anatomical Collection Method Collection Time Receive d Time (Source) Location / / Volume Laterality Blood specimen 03/01/2020 3:54 AM 020 4:05 (specimen) EDT AM EDT Resulting Agency Comment Spec In Lab Jaycee Sweet MD HEMATOLOGY ORDERABLES Performing Organization Address City/State/[place] [address] (ABNORMAL) Hemogram (03/01/2020 3:54 AM EDT) Analysis Performed At Patho logist Time Signature WBC 9.9 (H) 4.0 - 9.5 [facility] x10(3)/[facility] LABORATORY RBC 4.34 4.00 - [facility] 5.21 [facility] x10(6)/[facility] LABORATORY Hemoglobin 11.8 11.7 - ESTEFANY DONNA 15.5 gm/dL [facility] Hematocrit 36.3 35.7 - ESTEFANY CARRILLOCOCK 45.8 % [facility] MCV 83.6 82.6 - ESTEFANY ALMANZACK 94.4 [facility] LABORATORY MCH 27.2 27.1 - ESTEFANY CARRILLOCOCK 32.0 pg [facility] MCHC 32.5 31.7 - ESTEFANY CARRILLOCOCK 35.0 gm/dL [facility] Platelets 379 (H) 145 - 357 ESTEFANY HICKMANDONNA x10(3)/[facility] LABORATORY RDWSD 59.3 (H) 37.0 - ESTEFANY THOMPSON 46.0 [facility] LABORATORY RDWCV 19.4 (H) 11.5 - ESTEFANY THOMPSON 14.1 % [facility] MPV 9.3 7.6 - 12.9 ESTEFANY THOMPSON [facility] LABORATORY nRBC % Auto 0.0 % [facility] nRBC Abs Auto 0.000 0.000 - ESTEFANY THOMPSON 0.000 [facility] x10(3)/[facility] LABORATORY Specimen Anatomical Collection Method Collection Time Receive d Time (Source) Location / / Volume Laterality Blood specimen 03/01/2020 3:54 AM 020 4:05 (specimen) EDT AM EDT Resulting Agency Comment Spec In Lab Jaycee Sweet MD HEMATOLOGY ORDERABLES Performing Organization Address City/State/ZIP Code Phon e Number [address] POCT Glucose (03/01/2020 12:28 AM EDT) P athologist Signature POC Glucose 121 65 - 199 [place] DON[place] mg/dL [facility] Comment: Supplemental ranges: <140 mg/dL before meals <180 mg/dL all other times of the day Specimen Anatomical Collection Method Collection Time Receive d Time (Source) Location / / Volume Laterality Blood specimen 03/01/2020 12:28 0 (specimen) AM EDT 12:28 AM EDT Carlee Galdamez MD POINT OF CARE TEST ORDERABLE S Performing Organization Address City/State/[place] [address] POCT Glucose (02/29/2020 7:50 PM EDT) athologist Signature POC Glucose 122 65 - 199 ESTEFANY HICKMANDONNA mg/dL [facility] Comment: Supplemental ranges: <140 mg/dL before meals <180 mg/dL all other times of the day Specimen Anatomical Collection Method Collection Time Receive d Time (Source) Location / / Volume Laterality Blood specimen 02/29/2020 7:50 PM 020 7:50 (specimen) EDT PM EDT Carlee Galdamez MD POINT OF CARE TEST ORDERABLE S Performing Organization Address City/State/ZIP Code Phon e Number [address] POCT Glucose (02/29/2020 3:49 PM EDT) athologist Signature POC Glucose 110 65 - 199 [place]EFANY HICKMANDONNA mg/dL [facility] Comment: Supplemental ranges: <140 mg/dL before meals <180 mg/dL all other times of the day Specimen Anatomical Collection Method Collection Time Receive d Time (Source) Location / / Volume Laterality Blood specimen 02/29/2020 3:49 PM 020 3:49 (specimen) EDT PM EDT Carlee Galdamez MD POINT OF CARE TEST ORDERABLE S Performing Organization Address City/State/[place] [address] POCT Glucose (02/29/2020 11:47 AM EDT) athologist Signature POC Glucose 105 65 - 199 [place]EF[place] DONNA mg/dL [facility] Comment: Supplemental ranges: <140 mg/dL before meals <180 mg/dL all other times of the day Specimen Anatomical Collection Method Collection Time Receive d Time (Source) Location / / Volume Laterality Blood specimen 02/29/2020 11:47 0 (specimen) AM EDT 11:47 AM EDT Carlee Galdamez MD POINT OF CARE TEST ORDERABLE S Performing Organization Address City/State/ZIP Code Phon e Number [address] POCT Glucose (02/29/2020 7:34 AM EDT) P athologist Signature POC Glucose 124 65 - 199 [facility] mg/dL [facility] Comment: Supplemental ranges: <140 mg/dL before meals <180 mg/dL all other times of the day Specimen Anatomical Collection Method Collection Time Receive d Time (Source) Location / / Volume Laterality Blood specimen 02/29/2020 7:34 AM 020 7:34 (specimen) EDT AM EDT Carlee Galdamez MD POINT OF CARE TEST ORDERABLE S Performing Organization Address City/State/[place] [address] (ABNORMAL) Differential, Automated (02/29/2020 1:35 AM EDT) Patholo gist Method Time Signature Neutrophils % 80.3 % [facility] Neutr Abs (ANC) 6.64 (H) 1.70 - [facility] 6.10 [facility] x10(3)/[facility] LABORATORY Lymphocytes % 10.5 % [facility] Lymphocytes Abs 0.9 0.9 - 3.2 [facility] x10(3)/[facility] LABORATORY Monocytes % 7.4 % [facility] Monocyte Abs 0.6 0.3 - 0.9 [facility] x10(3)/[facility] LABORATORY Eosinophils % 1.1 % [facility] Eosinophils Abs 0.1 0.0 - 0.4 [facility] x10(3)/[facility] LABORATORY Basophils % 0.2 % [facility] Basophils Abs 0.0 0.0 - 0.1 [facility] x10(3)/[facility] LABORATORY Immature Gran % 0.50 % [facility] Comment: Immature granulocytes(IG's)percentage an d absolute count will include metamyelocytes, myelocytes, and promyelo cytes. Blood smears from CBCs yielding IG's will be scanned manually for concor dance. If this scan disagrees with the automated IG or if promyelocytes are not ed, a manual differential will be performed. Teresa Gran Abs 0.04 0.00 - 0.04 x10(3)/[facility] LABORATORY Specimen Anatomical Collection Method Collection Time Receive d Time (Source) Location / / Volume Laterality Blood specimen 02/29/2020 1:35 AM 020 1:56 (specimen) EDT AM EDT Resulting Agency Comment Spec In Lab Jaycee Sweet MD HEMATOLOGY ORDERABLES Performing Organization Address City/State/[place] [address] (ABNORMAL) Hemogram (02/29/2020 1:35 AM EDT) Analysis Performed At Patho logist Time Signature WBC 8.3 4.0 - 9.5 [facility] x10(3)/[facility] LABORATORY RBC 4.09 4.00 - [facility] 5.21 [facility] x10(6)/[facility] LABORATORY Hemoglobin 11.6 (L) 11.7 - [facility] 15.5 gm/dL [facility] Hematocrit 34.3 (L) 35.7 - [facility] 45.8 % [facility] MCV 83.9 82.6 - [facility]4 [facility] LAB[facility]ORY MCH 28.4 27.1 - [facility] 32.0 pg [facility] MCHC 33.8 31.7 - [facility] 35.0 gm/dL [facility] Platelets 342 145 - 357 [facility] x10(3)/[facility] RDWSD 59.6 (H) 37.0 - [facility] DONNA 46.0 [facility] LABORATORY RDWCV 19.5 (H) 11.5 - [facility] DONNA 14.1 % [facility] MPV 9.5 7.6 - 12.9 [facility] LABORATORY nRBC % Auto 0.0 % [facility] nRBC Abs Auto 0.000 0.000 - [facility] 0.000 [facility] x10(3)/[facility] LABORATORY Specimen Anatomical Collection Method Collection Time Receive d Time (Source) Location / / Volume Laterality Blood specimen 02/29/2020 1:35 AM 020 1:56 (specimen) EDT AM EDT Resulting Agency Comment Spec In Lab Jaycee Sweet MD HEMATOLOGY ORDERABLES Performing Organization Address City/State/[place] [address] (ABNORMAL) Basic Metabolic Panel (non-fasting) (02/29/2020 1:35 AM EDT) P athologist Signature Glucose Lvl 131 65 - 199 [facility] mg/dL [facility] Comment: Diabetes: >=200 mg/dL plus symp toms BUN 9 8 - 18 mg/dL [facility] Comment: rkkesult rechecked- Creatinine 0.26 (L) 0.70 - 1.20 mg/dL [facility] Sodium 142 135 - 145 mmol/L [facility] Potassium 4.1 3.5 - 5.0 mmol/L [facility] Comment: Please note: ??Patients with WBC >100,00 0 may have falsely elevated Potassium levels. ??For accurate Potassium quantif ication in these patients send serum separator tube (gold top) for subsequent determinations. ??Contact the Clinical Chemistry Laboratory if there are any qu estions. Chloride 107 98 - 107 mmol/L [facility] CO2 26 22 - 31 mmol/L [facility] Anion Gap 9 5 - 15 mmol/L [facility] Calcium 8.4 (L) 8.5 - 10.5 mg/dL [facility] Estimated GFR 133 >=60 mL/min/1.73 m?? [facility] Comment: The eGFR was calculated using the CKD-EP I equation. As with all creatinine based estimates of kidney function, eGFR values calculated with the CKD-EPI equation are not accurate in patients wi th acute kidney failure, extremes of body mass or the acutely ill. http://[employer]/DHMCnkf eGFR 154 >=60 mL/min/1.73 m?? [facility] Comment: The eGFR was calculated using the CKD-EP I equation. As with all creatinine based estimates of kidney function, eGFR values calculated with the CKD-EPI equation are not accurate in patients wi th acute kidney failure, extremes of body mass or the acutely ill. [email or web address]/DHMCnkf Specimen Anatomical Collection Method Collection Time Receive d Time (Source) Location / / Volume Laterality Blood specimen 02/29/2020 1:35 AM 020 1:56 (specimen) EDT AM EDT Resulting Agency Comment Spec In Lab Britany Villanueva APRN CHEMISTRY ORDERABLES Performing Organization Address City/State/ZIP Code Phon e Number [address] Magnesium (02/29/2020 1:35 AM EDT) P athologist Signature Magnesium 0.79 0.69 - 1.07 [facility]/L [facility] Specimen Anatomical Collection Method Collection Time Receive d Time (Source) Location / / Volume Laterality Blood specimen 02/29/2020 1:35 AM 020 1:56 (specimen) EDT AM EDT Resulting Agency Comment Spec In Lab Carlee Galdamez MD CHEMISTRY ORDERABLES Performing Organization Address City/State/ZIP Code Phon e Number [address] Phosphorus (02/29/2020 1:35 AM EDT) P athologist Signature Phosphorus 3.6 2.5 - 4.5 [facility] DONNA mg/dL [facility] Specimen Anatomical Collection Method Collection Time Receive d Time (Source) Location / / Volume Laterality Blood specimen 02/29/2020 1:35 AM 020 1:56 (specimen) EDT AM EDT Resulting Agency Comment Spec In Lab Carlee Galdamez MD CHEMISTRY ORDERABLES Performing Organization Address City/State/ZIP Code Phon e Number [address] POCT Glucose (02/28/2020 7:40 PM EDT) P athologist Signature POC Glucose 123 65 - 199 [facility] Comment: Supplemental ranges: <140 mg/dL before meals <180 mg/dL all other times of the day Specimen Anatomical Collection Method Collection Time Receive d Time (Source) Location / / Volume Laterality Blood specimen 02/28/2020 7:40 PM 020 7:40 (specimen) EDT PM EDT Carlee Galdamez MD POINT OF CARE TEST ORDERABLE S Performing Organization Address City/State/ZIP Code Phon e Number [address] POCT Glucose (02/28/2020 4:22 PM EDT) athologist Signature POC Glucose 97 65 - 199 [facility] DONNA mg/dL [facility] Comment: Supplemental ranges: <140 mg/dL before meals <180 mg/dL all other times of the day Specimen Anatomical Collection Method Collection Time Receive d Time (Source) Location / / Volume Laterality Blood specimen 02/28/2020 4:22 PM 020 4:22 (specimen) EDT PM EDT Carlee Galdamez MD POINT OF CARE TEST ORDERABLE S Performing Organization Address City/[facility]/ZIP Code Phon e Number [address] POCT Glucose (02/28/2020 11:57 AM EDT) athologist Signature POC Glucose 104 65 - 199 ESTEFANY DONNA mg/dL [facility] Comment: Supplemental ranges: <140 mg/dL before meals <180 mg/dL all other times of the day Specimen Anatomical Collection Method Collection Time Receive d Time (Source) Location / / Volume Laterality Blood specimen 02/28/2020 11:57 0 (specimen) AM EDT 11:57 AM EDT Carlee Galdamez MD POINT OF CARE TEST ORDERABLE S Performing Organization Address City/State/ZIP Code Phon e Number [address] POCT Glucose (02/28/2020 7:56 AM EDT) athologist Signature POC Glucose 102 65 - 199 [facility] DONNA mg/dL [facility] Comment: Supplemental ranges: <140 mg/dL before meals <180 mg/dL all other times of the day Specimen Anatomical Collection Method Collection Time Receive d Time (Source) Location / / Volume Laterality Blood specimen 02/28/2020 7:56 AM 020 7:56 (specimen) EDT AM EDT Carlee Galdamez MD POINT OF CARE TEST ORDERABLE S Performing Organization Address City/[facility]/[place] [address] Amylase Level Body Fluid JOSE Drain (02/28/2020 3:25 AM EDT) athologist Signature Amylase, BF 36 unit/L [facility] Comment: No reference range is available for the specimen type submitted. ??The performance of this assay for the submit kisha type has not been validated and results should be interpreted accordingl y and with regard to the patient's clinical status. Amylase BF Type JOSE Drain [facility] Specimen Anatomical Collection Method Collection Time Receive d Time (Source) Location / / Volume Laterality JOSE Drain 02/28/2020 3:25 AM 0 3:37 EDT AM EDT Resulting Agency Comment Spec In Lab Carlee Galdamez MD BODY FLUIDS AND STOOLS ORDER AYDIN Performing Organization Address City/[facility]/[place] [address] POCT Glucose (02/28/2020 3:24 AM EDT) athologist Signature POC Glucose 96 65 - 199 [facility] mg/dL [facility] Comment: Supplemental ranges: <140 mg/dL before meals <180 mg/dL all other times of the day Specimen Anatomical Collection Method Collection Time Receive d Time (Source) Location / / Volume Laterality Blood specimen 02/28/2020 3:24 AM 020 3:24 (specimen) EDT AM EDT Carlee Galdamez MD POINT OF CARE TEST ORDERABLE S Performing Organization Address City/[facility]/[place] [address] Amylase (02/28/2020 1:49 AM EDT) athologist Signature Amylase 32 28 - 100 [facility] unit/L [facility] Specimen Anatomical Collection Method Collection Time Receive d Time (Source) Location / / Volume Laterality Blood specimen Venous Draw / 02/28/2020 1:49 AM 2019 2:02 (specimen) Unknown EDT AM EDT Resulting Agency Comment Spec In Lab Jaycee Sweet MD CHEMISTRY ORDERABLES Performing Organization Address City/State/[place] [address] Differential, Automated (02/28/2020 1:49 AM EDT) athologist Signature Neutrophils % 62.9 % [facility] Neutr Abs (ANC) 3.92 1.70 - [facility] 6.10 [facility] x10(3)/[facility] LABORATORY Lymphocytes % 20.4 % [facility] Lymphocytes Abs 1.3 0.9 - 3.2 [facility] x10(3)/[facility] LABORATORY Monocytes % 10.3 % [facility] Monocyte Abs 0.6 0.3 - 0.9 [facility] x10(3)/[facility] LABORATORY Eosinophils % 5.6 % [facility] Eosinophils Abs 0.4 0.0 - 0.4 [facility] x10(3)/[facility] LABORATORY Basophils % 0.3 % [facility] Basophils Abs 0.0 0.0 - 0.1 [facility] x10(3)/[facility] LABORATORY Immature Gran % 0.50 % [facility] Comment: Immature granulocytes(IG's)percentage an d absolute count will include metamyelocytes, myelocytes, and promyelo cytes. Blood smears from CBCs yielding IG's will be scanned manually for concor dance. If this scan disagrees with the automated IG or if promyelocytes are not ed, a manual differential will be performed. Teresa Gran Abs 0.03 0.00 - 0.04 x10(3)/[facility] LABORATORY Specimen Anatomical Collection Method Collection Time Receive d Time (Source) Location / / Volume Laterality Blood specimen 02/28/2020 1:49 AM 020 2:02 (specimen) EDT AM EDT Resulting Agency Comment Spec In Lab Jaycee Sweet MD HEMATOLOGY ORDERABLES Performing Organization Address City/[facility]/[place] [address] (ABNORMAL) Hemogram (02/28/2020 1:49 AM EDT) Analysis Performed At Patho logist Time Signature WBC 6.2 4.0 - 9.5 [facility](3[facility] LABORATORY RBC 3.61 (L) 4.00 - ESTEFANY DONNA 5.21 [facility] x10(6)/[facility] LABORATORY Hemoglobin 10.0 (L) 11.7 - [facility] 15.5 gm/dL [facility] Hematocrit 31.1 (L) 35.7 - [facility] 45.8 % [facility] MCV 86.1 82.6 - [facility] 94.4 [facility] LABORATORY MCH 27.7 27.1 - ESTEFANY DONNA 32.0 pg [facility] MCHC 32.2 31.7 - [facility] DON[facility] 35.0 gm/dL [facility] Platelets 285 145 - 357 [facility] x[facility](3[facility] LABORATORY RDWSD 61.4 (H) 37.0 - [facility] DONNA 46.0 [facility] LABORATORY RDWCV 19.8 (H) 11.5 - [facility] DON[place] 14.1 % [facility] MPV 9.4 7.6 - 12.9 [facility] LABORATORY nRBC % Auto 0.0 % [facility] nRBC Abs Auto 0.000 0.000 - [facility] DON[place] 0.000 [facility] x10(3)/[facility] LABORATORY Specimen Anatomical Collection Method Collection Time Receive d Time (Source) Location / / Volume Laterality Blood specimen 02/28/2020 1:49 AM 020 2:02 (specimen) EDT AM EDT Resulting Agency Comment Spec In Lab Jaycee Sweet MD HEMATOLOGY ORDERABLES Performing Organization Address City/State/[place] [address] (ABNORMAL) Basic Metabolic Panel (non-fasting) (02/28/2020 1:49 AM EDT) athologist Signature Glucose Lvl 112 65 - 199 [facility] mg/dL [facility] Comment: Diabetes: >=200 mg/dL plus symp toms BUN 5 (L) 8 - 18 mg/dL [facility] Creatinine 0.35 (L) 0.70 - 1.20 mg/dL [facility] Sodium 142 135 - 145 mmol/L [facility] Potassium 3.7 3.5 - 5.0 mmol/L [facility] Comment: Please note: ??Patients with WBC >100,00 0 may have falsely elevated Potassium levels. ??For accurate Potassium quantif ication in these patients send serum separator tube (gold top) for subsequent determinations. ??Contact the Clinical Chemistry Laboratory if there are any qu estions. Chloride 108 (H) 98 - 107 mmol/L [facility] CO2 27 22 - 31 mmol/L [facility] Anion Gap 7 5 - 15 mmol/L [facility] Calcium 8.1 (L) 8.5 - 10.5 mg/dL [facility] Estimated GFR 121 >=60 mL/min/1.73 m?? [facility] Comment: The eGFR was calculated using the CKD-EP I equation. As with all creatinine based estimates of kidney function, eGFR values calculated with the CKD-EPI equation are not accurate in patients wi th acute kidney failure, extremes of body mass or the acutely ill. http://[employer]/[facility] GUYMONnkf eGFR 140 >=60 mL/min/1.73 m?? [facility] Comment: The eGFR was calculated using the CKD-EP I equation. As with all creatinine based estimates of kidney function, eGFR values calculated with the CKD-EPI equation are not accurate in patients wi th acute kidney failure, extremes of body mass or the acutely ill. http://[employer]/DHnkf Specimen Anatomical Collection Method Collection Time Receive d Time (Source) Location / / Volume Laterality Blood specimen 02/28/2020 1:49 AM 020 2:02 (specimen) EDT AM EDT Resulting Agency Comment Spec In Lab Britany Villanueva APRN CHEMISTRY ORDERABLES Performing Organization Address City/State/ZIP Code Phon e Number [address] Magnesium (02/28/2020 1:49 AM EDT) P athologist Signature Magnesium 0.73 0.69 - 1.07 [facility] [place] mmol/L [facility] Specimen Anatomical Collection Method Collection Time Receive d Time (Source) Location / / Volume Laterality Blood specimen 02/28/2020 1:49 AM 020 2:02 (specimen) EDT AM EDT Resulting Agency Comment Spec In Lab Carlee Galdamez MD CHEMISTRY ORDERABLES Performing Organization Address City/[facility]/ZIP Code Phon e Number [address] Phosphorus (02/28/2020 1:49 AM EDT) athologist Signature Phosphorus 3.5 2.5 - 4.5 [place] DON[place] mg/dL [facility] Specimen Anatomical Collection Method Collection Time Receive d Time (Source) Location / / Volume Laterality Blood specimen 02/28/2020 1:49 AM 020 2:02 (specimen) EDT AM EDT Resulting Agency Comment Spec In Lab Carlee Galdamez MD CHEMISTRY ORDERABLES Performing Organization Address City/[facility]/ZIP Code Phon e Number [address] POCT Glucose (02/28/2020 12:01 AM EDT) athologist Signature POC Glucose 108 65 - 199 [place] mg/dL [facility] Comment: Supplemental ranges: <140 mg/dL before meals <180 mg/dL all other times of the day Specimen Anatomical Collection Method Collection Time Receive d Time (Source) Location / / Volume Laterality Blood specimen 02/28/2020 12:01 0 (specimen) AM EDT 12:01 AM EDT Carlee Galdamez MD POINT OF CARE TEST ORDERABLE S Performing Organization Address City/State/ZIP Code [place] [address] POCT Glucose (02/27/2020 8:45 PM EDT) athologist Signature POC Glucose 104 65 - 199 [place] H[place] mg/dL [facility] Comment: Supplemental ranges: <140 mg/dL before meals <180 mg/dL all other times of the day Specimen Anatomical Collection Method Collection Time Receive d Time (Source) Location / / Volume Laterality Blood specimen 02/27/2020 8:45 PM 020 8:45 (specimen) EDT PM EDT Carlee Galdamez MD POINT OF CARE TEST ORDERABLE S Performing Organization Address City/State/ZIP Code Phon e Number [address] POCT Glucose (02/27/2020 4:04 PM EDT) athologist Signature POC Glucose 85 65 - 199 [place] mg/dL [facility] Comment: Supplemental ranges: <140 mg/dL before meals <180 mg/dL all other times of the day Specimen Anatomical Collection Method Collection Time Receive d Time (Source) Location / / Volume Laterality Blood specimen 02/27/2020 4:04 PM 020 4:04 (specimen) EDT PM EDT Carlee Galdamez MD POINT OF CARE TEST ORDERABLE S Performing Organization Address City/State/ZIP Code Phon e Number [address] POCT Glucose (02/27/2020 11:46 AM EDT) athologist Signature POC Glucose 103 65 - 199 ESTEFANY HICKMANDONNA mg/dL [facility] Comment: Supplemental ranges: <140 mg/dL before meals <180 mg/dL all other times of the day Specimen Anatomical Collection Method Collection Time Receive d Time (Source) Location / / Volume Laterality Blood specimen 02/27/2020 11:46 0 (specimen) AM EDT 11:46 AM EDT Carlee Galdamez MD POINT OF CARE TEST ORDERABLE S Performing Organization Address City/State/[place] [address] POCT Glucose (02/27/2020 9:41 AM EDT) athologist Signature POC Glucose 102 65 - 199 [facility] Comment: Supplemental ranges: <140 mg/dL before meals <180 mg/dL all other times of the day Specimen Anatomical Collection Method Collection Time Receive d Time (Source) Location / / Volume Laterality Blood specimen 02/27/2020 9:41 AM 020 9:41 (specimen) EDT AM EDT Carlee Galdamez MD POINT OF CARE TEST ORDERABLE S Performing Organization Address City/[facility]/ZIP Code Phon e Number [address] POCT Glucose (02/27/2020 4:46 AM EDT) athologist Signature POC Glucose 100 65 - 199 [facility]dL [facility] Comment: Supplemental ranges: <140 mg/dL before meals <180 mg/dL all other times of the day Specimen Anatomical Collection Method Collection Time Receive d Time (Source) Location / / Volume Laterality Blood specimen 02/27/2020 4:46 AM 020 4:46 (specimen) EDT AM EDT Carlee Galdamez MD POINT OF CARE TEST ORDERABLE S Performing Organization Address City/[facility]/[place] [address] Amylase Level Body Fluid JOSE Drain (02/27/2020 2:35 AM EDT) athologist Signature Amylase, BF 53 unit/L [facility] Comment: No reference range is available for the specimen type submitted. ??The performance of this assay for the submit kisha type has not been validated and results should be interpreted accordingl y and with regard to the patient's clinical status. Amylase BF Type JOSE Drain [facility] Specimen Anatomical Collection Method Collection Time Receive d Time (Source) Location / / Volume Laterality JOSE Drain 02/27/2020 2:35 AM 0 3:24 EDT AM EDT Resulting Agency Comment Spec In Lab Carlee Galdamez MD BODY FLUIDS AND STOOLS ORDER AYDIN Performing Organization Address City/State/ZIP Code Phon e Number [address] Differential, Automated (02/27/2020 2:19 AM EDT) P athologist Signature Neutrophils % 72.0 % [facility] Neutr Abs (ANC) 6.04 1.70 - [facility] 6.10 [facility] x10(3)/[facility] LABORATORY Lymphocytes % 15.6 % [facility] Lymphocytes Abs 1.3 0.9 - 3.2 [facility] x10(3)/[facility] LABORATORY Monocytes % 9.9 % [facility] Monocyte Abs 0.8 0.3 - 0.9 [facility] x10(3)/[facility] LABORATORY Eosinophils % 2.1 % [facility] Eosinophils Abs 0.2 0.0 - 0.4 [facility] x10(3)/[facility] LABORATORY Basophils % 0.2 % [facility] Basophils Abs 0.0 0.0 - 0.1 [facility] x10(3)/[facility] LABORATORY Immature Gran % 0.20 % [facility] Comment: Immature granulocytes(IG's)percentage an d absolute count will include metamyelocytes, myelocytes, and promyelo cytes. Blood smears from CBCs yielding IG's will be scanned manually for concor dance. If this scan disagrees with the automated IG or if promyelocytes are not ed, a manual differential will be performed. Teresa Gran Abs 0.02 0.00 - 0.04 x10(3)/[facility] LABORATORY Specimen Anatomical Collection Method Collection Time Receive d Time (Source) Location / / Volume Laterality Blood specimen 02/27/2020 2:19 AM 020 2:25 (specimen) EDT AM EDT Resulting Agency Comment Spec In Lab Jaycee Sweet MD HEMATOLOGY ORDERABLES Performing Organization Address City/[facility]/ZIP Code Phon e Number [place] [id number] (ABNORMAL) Hemogram (02/27/2020 2:19 AM EDT) Analysis Performed At Patho logist Time Signature WBC 8.4 4.0 - 9.5 [facility] x[facility](3[facility] LABORATORY RBC 4.01 4.00 - ESTEFANY DONNA 5.21 [facility] x10(6)/[facility] LABORATORY Hemoglobin 11.1 (L) 11.7 - [facility] 15.5 gm/dL [facility] Hematocrit 34.5 (L) 35.7 - ESTEFANY DONNA 45.8 % [facility] MCV 86.0 82.6 - [facility] 94.4 [facility] LABORATORY MCH 27.7 27.1 - ESTEFANY DONNA 32.0 pg [facility] MCHC 32.2 31.7 - ESTEFANY DONNA 35.0 gm/dL [facility] Platelets 308 145 - 357 [facility] x10(3)/[facility] LABORATORY RDWSD 62.4 (H) 37.0 - ESTEFANY DONNA 46.0 [facility] LABORATORY RDWCV 19.8 (H) 11.5 - [facility] DONNA 14.1 % [facility] MPV 9.8 7.6 - 12.9 [facility] nRBC % Auto 0.0 % [facility] nRBC Abs Auto 0.000 0.000 - ESTEFANY DONNA 0.000 [facility] x10(3)/[facility] LABORATORY Specimen Anatomical Collection Method Collection Time Receive d Time (Source) Location / / Volume Laterality Blood specimen 02/27/2020 2:19 AM 020 2:25 (specimen) EDT AM EDT Resulting Agency Comment Spec In Lab Jaycee Sweet MD HEMATOLOGY ORDERABLES Performing Organization Address City/State/[place] [address] (ABNORMAL) Basic Metabolic Panel (non-fasting) (02/27/2020 2:19 AM EDT) P athologist Signature Glucose Lvl 123 65 - 199 [facility] mg/dL [facility] Comment: Diabetes: >=200 mg/dL plus symp toms BUN 6 (L) 8 - 18 mg/dL [facility] Creatinine 0.36 (L) 0.70 - 1.20 mg/dL [facility] Sodium 142 135 - 145 mmol/L [facility] Potassium 4.0 3.5 - 5.0 mmol/L [facility] Comment: Please note: ??Patients with WBC >100,00 0 may have falsely elevated Potassium levels. ??For accurate Potassium quantif ication in these patients send serum separator tube (gold top) for subsequent determinations. ??Contact the Clinical Chemistry Laboratory if there are any qu estions. Chloride 108 (H) 98 - 107 mmol/L [facility] CO2 27 22 - 31 mmol/L [facility] Anion Gap 7 5 - 15 mmol/L [facility] Calcium 8.3 (L) 8.5 - 10.5 mg/dL [facility] Estimated GFR 120 >=60 mL/min/1.73 m?? [facility] Comment: The eGFR was calculated using the CKD-EP I equation. As with all creatinine based estimates of kidney function, eGFR values calculated with the CKD-EPI equation are not accurate in patients wi th acute kidney failure, extremes of body mass or the acutely ill. http://[employer]/[facility]MONnkf eGFR 139 >=60 mL/min/1.73 m?? [facility] Comment: The eGFR was calculated using the CKD-EP I equation. As with all creatinine based estimates of kidney function, eGFR values calculated with the CKD-EPI equation are not accurate in patients wi th acute kidney failure, extremes of body mass or the acutely ill. http://[employer]/[facility]YMONnkf Specimen Anatomical Collection Method Collection Time Receive d Time (Source) Location / / Volume Laterality Blood specimen 02/27/2020 2:19 AM 020 2:26 (specimen) EDT AM EDT Resulting Agency Comment Spec In Lab Britany Villanueva APRN CHEMISTRY ORDERABLES Performing Organization Address City/State/[place] [address] Amylase (02/27/2020 2:19 AM EDT) athologist Signature Amylase 39 28 - 100 [facility] unit/L [facility] Specimen Anatomical Collection Method Collection Time Receive d Time (Source) Location / / Volume Laterality Blood specimen 02/27/2020 2:19 AM 020 2:26 (specimen) EDT AM EDT Resulting Agency Comment Spec In Lab Carlee Galdamez MD CHEMISTRY ORDERABLES Performing Organization Address City/State/ZIP Code Phon e Number [address] Magnesium (02/27/2020 2:19 AM EDT) athologist Signature Magnesium 0.81 0.69 - 1.07 [facility] mmol/L [facility] Specimen Anatomical Collection Method Collection Time Receive d Time (Source) Location / / Volume Laterality Blood specimen 02/27/2020 2:19 AM 020 2:26 (specimen) EDT AM EDT Resulting Agency Comment Spec In Lab Carlee Galdamez MD CHEMISTRY ORDERABLES Performing Organization Address City/State/ZIP Code Phon e Number [address] Phosphorus (02/27/2020 2:19 AM EDT) athologist Signature Phosphorus 2.7 2.5 - 4.5 [facility] Specimen Anatomical Collection Method Collection Time Receive d Time (Source) Location / / Volume Laterality Blood specimen 02/27/2020 2:19 AM 020 2:26 (specimen) EDT AM EDT Resulting Agency Comment Spec In Lab Carlee Galdamez MD CHEMISTRY ORDERABLES Performing Organization Address City/State/ZIP Code Phon e Number [address] POCT Glucose (02/27/2020 12:21 AM EDT) athologist Signature POC Glucose 98 65 - 199 [facility] Comment: Supplemental ranges: <140 mg/dL before meals <180 mg/dL all other times of the day Specimen Anatomical Collection Method Collection Time Receive d Time (Source) Location / / Volume Laterality Blood specimen 02/27/2020 12:21 0 (specimen) AM EDT 12:21 AM EDT Carlee Galdamez MD POINT OF CARE TEST ORDERABLE S Performing Organization Address City/State/ZIP Code Phon e Number [address] POCT Glucose (02/26/2020 8:27 PM EDT) athologist Signature POC Glucose 106 65 - 199 ESTEFANY DONNA mg/dL [facility] Comment: Supplemental ranges: <140 mg/dL before meals <180 mg/dL all other times of the day Specimen Anatomical Collection Method Collection Time Receive d Time (Source) Location / / Volume Laterality Blood specimen 02/26/2020 8:27 PM 020 8:27 (specimen) EDT PM EDT Carlee Galdamez MD POINT OF CARE TEST ORDERABLE S Performing Organization Address City/State/ZIP Code Phon e Number [address] POCT Glucose (02/26/2020 3:50 PM EDT) athologist Signature POC Glucose 93 65 - 199 ESTEFANY DONNA mg/dL [facility] Comment: Supplemental ranges: <140 mg/dL before meals <180 mg/dL all other times of the day Specimen Anatomical Collection Method Collection Time Receive d Time (Source) Location / / Volume Laterality Blood specimen 02/26/2020 3:50 PM 020 3:50 (specimen) EDT PM EDT Carlee Galdamez MD POINT OF CARE TEST ORDERABLE S Performing Organization Address City/State/ZIP Code Phon e Number [address] POCT Glucose (02/26/2020 11:42 AM EDT) athologist Signature POC Glucose 88 65 - 199 ESTEFANY DONNA mg/dL [facility] Comment: Supplemental ranges: <140 mg/dL before meals <180 mg/dL all other times of the day Specimen Anatomical Collection Method Collection Time Receive d Time (Source) Location / / Volume Laterality Blood specimen 02/26/2020 11:42 0 (specimen) AM EDT 11:42 AM EDT Carlee Galdamez MD POINT OF CARE TEST ORDERABLE S Performing Organization Address City/[facility]/[place] [address] POCT Glucose (02/26/2020 7:55 AM EDT) athologist Signature POC Glucose 125 65 - 199 [facility] Comment: Supplemental ranges: <140 mg/dL before meals <180 mg/dL all other times of the day Specimen Anatomical Collection Method Collection Time Receive d Time (Source) Location / / Volume Laterality Blood specimen 02/26/2020 7:55 AM 020 7:55 (specimen) EDT AM EDT Carlee Galdamez MD POINT OF CARE TEST ORDERABLE S Performing Organization Address City/[facility]/[place] [address] Amylase Level Body Fluid JOSE Drain (02/26/2020 6:05 AM EDT) athologist Signature Amylase, BF 142 unit/L [facility] Comment: No reference range is available for the specimen type submitted. ??The performance of this assay for the submit kisha type has not been validated and results should be interpreted accordingl y and with regard to the patient's clinical status. Amylase BF Type JOSE Drain [facility] Specimen Anatomical Collection Method Collection Time Receive d Time (Source) Location / / Volume Laterality JOSE Drain 02/26/2020 6:05 AM 0 6:27 EDT AM EDT Resulting Agency Comment Spec In Lab Carlee Galdamez MD BODY FLUIDS AND STOOLS ORDER AYDIN Performing Organization Address City/[facility]/ZIP Code Phon e Number [address] POCT Glucose (02/26/2020 4:00 AM EDT) athologist Signature POC Glucose 111 65 - 199 [facility] mg/dL [facility] Comment: Supplemental ranges: <140 mg/dL before meals <180 mg/dL all other times of the day Specimen Anatomical Collection Method Collection Time Receive d Time (Source) Location / / Volume Laterality Blood specimen 02/26/2020 4:00 AM 020 4:00 (specimen) EDT AM EDT Carlee Galdamez MD POINT OF CARE TEST ORDERABLE S Performing Organization Address City/State/[place] [address] (ABNORMAL) Differential, Automated (02/26/2020 2:04 AM EDT) [facility] gist Method Time Signature Neutrophils % 77.2 % [facility] Neutr Abs (ANC) 7.54 (H) 1.70 - [facility] 6.10 [facility] x10(3)/[facility] LABORATORY Lymphocytes % 11.0 % [facility] Lymphocytes Abs 1.1 0.9 - 3.2 [facility] x10(3)/[facility] LABORATORY Monocytes % 10.8 % [facility] Monocyte Abs 1.0 (H) 0.3 - 0.9 [facility] x10(3)/[facility] LABORATORY Eosinophils % 0.5 % [facility] Eosinophils Abs 0.0 0.0 - 0.4 [facility] x10(3)/[facility] LABORATORY Basophils % 0.1 % [facility] Basophils Abs 0.0 0.0 - 0.1 [facility] x10(3)/[facility] LABORATORY Immature Gran % 0.40 % [facility] Comment: Immature granulocytes(IG's)percentage an d absolute count will include metamyelocytes, myelocytes, and promyelo cytes. Blood smears from CBCs yielding IG's will be scanned manually for concor dance. If this scan disagrees with the automated IG or if promyelocytes are not ed, a manual differential will be performed. Teresa Gran Abs 0.04 0.00 - 0.04 x10(3)/[facility] LABORATORY Specimen Anatomical Collection Method Collection Time Receive d Time (Source) Location / / Volume Laterality Blood specimen 02/26/2020 2:04 AM 020 2:29 (specimen) EDT AM EDT Resulting Agency Comment Spec In Lab Jaycee Sweet MD HEMATOLOGY ORDERABLES Performing Organization Address City/State/[place] [address] (ABNORMAL) Hemogram (02/26/2020 2:04 AM EDT) Analysis Performed At Patho logist Time Signature WBC 9.8 (H) 4.0 - 9.5 [facility] x[facility](3[facility] LABORATORY RBC 3.76 (L) 4.00 - ESTEFANY DONNA 5.21 [facility] x10(6)/[facility] LABORATORY Hemoglobin 10.3 (L) 11.7 - [facility] DONNA 15.5 gm/dL [facility] Hematocrit 32.6 (L) 35.7 - [facility] DONNA 45.8 % [facility] MCV 86.7 82.6 - [facility] 94.4 [facility] LABORATORY MCH 27.4 27.1 - ESTEFANY DONNA 32.0 pg [facility] MCHC 31.6 (L) 31.7 - [facility] DONNA 35.0 gm/dL [facility] Platelets 271 145 - 357 [facility] x10(3)/[facility] LABORATORY RDWSD 62.9 (H) 37.0 - [facility] DONNA 46.0 [facility] LABORATORY RDWCV 20.0 (H) 11.5 - [facility] DONNA 14.1 % [facility] MPV 9.9 7.6 - 12.9 [facility] LABORATORY nRBC % Auto 0.0 % [facility] nRBC Abs Auto 0.000 0.000 - ESTEFANY DONNA 0.000 [facility] x10(3)/[facility] LABORATORY Specimen Anatomical Collection Method Collection Time Receive d Time (Source) Location / / Volume Laterality Blood specimen 02/26/2020 2:04 AM 020 2:29 (specimen) EDT AM EDT Resulting Agency Comment Spec In Lab Jaycee Sweet MD HEMATOLOGY ORDERABLES Performing Organization Address City/State/[place] [address] (ABNORMAL) Basic Metabolic Panel (non-fasting) (02/26/2020 2:04 AM EDT) P athologist Signature Glucose Lvl 114 65 - 199 [facility] mg/dL [facility] Comment: Diabetes: >=200 mg/dL plus symp toms BUN 6 (L) 8 - 18 mg/dL [facility] Creatinine 0.29 (L) 0.70 - 1.20 mg/dL [facility] Sodium 138 135 - 145 mmol/L [facility] Potassium 3.6 3.5 - 5.0 mmol/L [facility] Comment: Please note: ??Patients with WBC >100,00 0 may have falsely elevated Potassium levels. ??For accurate Potassium quantif ication in these patients send serum separator tube (gold top) for subsequent determinations. ??Contact the Clinical Chemistry Laboratory if there are any qu estions. Chloride 106 98 - 107 mmol/L [facility] CO2 27 22 - 31 mmol/L [facility] Anion Gap 5 5 - 15 mmol/L [facility] Calcium 7.7 (L) 8.5 - 10.5 mg/dL [facility] Estimated GFR 129 >=60 mL/min/1.73 m?? [facility] Comment: The eGFR was calculated using the CKD-EP I equation. As with all creatinine based estimates of kidney function, eGFR values calculated with the CKD-EPI equation are not accurate in patients wi th acute kidney failure, extremes of body mass or the acutely ill. http://[employer]/[facility]MCnkf eGFR 149 >=60 mL/min/1.73 m?? [facility] Comment: The eGFR was calculated using the CKD-EP I equation. As with all creatinine based estimates of kidney function, eGFR values calculated with the CKD-EPI equation are not accurate in patients wi th acute kidney failure, extremes of body mass or the acutely ill. [email or web address] Specimen Anatomical Collection Method Collection Time Receive d Time (Source) Location / / Volume Laterality Blood specimen 02/26/2020 2:04 AM 020 2:29 (specimen) EDT AM EDT Resulting Agency Comment Spec In Lab Britany Villanueva APRN CHEMISTRY ORDERABLES Performing Organization Address City/[facility]/ZIP Code Phon e Number [address] (ABNORMAL) Amylase (02/26/2020 2:04 AM EDT) P athologist Signature Amylase 103 (H) 28 - 100 [facility]L [facility] Specimen Anatomical Collection Method Collection Time Receive d Time (Source) Location / / Volume Laterality Blood specimen 02/26/2020 2:04 AM 020 2:29 (specimen) EDT AM EDT Resulting Agency Comment Spec In Lab Carlee Galdamez MD CHEMISTRY ORDERABLES Performing Organization Address City/[facility]/ZIP Code Phon e Number [address] Magnesium (02/26/2020 2:04 AM EDT) P athologist Signature Magnesium 0.76 0.69 - 1.07 [facility] mmol/L [facility] Specimen Anatomical Collection Method Collection Time Receive d Time (Source) Location / / Volume Laterality Blood specimen 02/26/2020 2:04 AM 020 2:29 (specimen) EDT AM EDT Resulting Agency Comment Spec In Lab Carlee Galdamez MD CHEMISTRY ORDERABLES Performing Organization Address City/[facility]/[place] [address] (ABNORMAL) Phosphorus (02/26/2020 2:04 AM EDT) P athologist Signature Phosphorus 1.8 (L) 2.5 - 4.5 [facility]/dL [facility] Specimen Anatomical Collection Method Collection Time Receive d Time (Source) Location / / Volume Laterality Blood specimen 02/26/2020 2:04 AM 020 2:29 (specimen) EDT AM EDT Resulting Agency Comment Spec In Lab Carlee Galdamez MD CHEMISTRY ORDERABLES Performing Organization Address City/State/ZIP Code Phon e Number [address] POCT Glucose (02/26/2020 12:00 AM EDT) athologist Signature POC Glucose 100 65 - 199 ESTEFANY DONNA mg/dL [facility] Comment: Supplemental ranges: <140 mg/dL before meals <180 mg/dL all other times of the day Specimen (Source) Anatomical Collection Method Collection Time Re ceived Time Location / / Volume Laterality Blood specimen 02/26/2020 02/26/2020 12 :00 (specimen) AM EDT Carlee Galdamez MD POINT OF CARE TEST ORDERABLE S Performing Organization Address City/State/ZIP Code Phon e Number [address] POCT Glucose (02/25/2020 7:41 PM EDT) athologist Signature POC Glucose 99 65 - 199 ESTEFANY DONNA mg/dL [facility] Comment: Supplemental ranges: <140 mg/dL before meals <180 mg/dL all other times of the day Specimen Anatomical Collection Method Collection Time Receive d Time (Source) Location / / Volume Laterality Blood specimen 02/25/2020 7:41 PM 020 7:41 (specimen) EDT PM EDT Carlee Galdamez MD POINT OF CARE TEST ORDERABLE S Performing Organization Address City/State/ZIP Code Phon e Number [address] POCT Glucose (02/25/2020 4:24 PM EDT) athologist Signature POC Glucose 113 65 - 199 ESTEFANY DONNA mg/dL [facility] Comment: Supplemental ranges: <140 mg/dL before meals <180 mg/dL all other times of the day Specimen Anatomical Collection Method Collection Time Receive d Time (Source) Location / / Volume Laterality Blood specimen 02/25/2020 4:24 PM 020 4:24 (specimen) EDT PM EDT Carlee Galdamez MD POINT OF CARE TEST ORDERABLE S Performing Organization Address City/State/[place] [address] POCT Glucose (02/25/2020 11:38 AM EDT) athologist Signature POC Glucose 94 65 - 199 [facility] mg/dL [facility] Comment: Supplemental ranges: <140 mg/dL before meals <180 mg/dL all other times of the day Specimen Anatomical Collection Method Collection Time Receive d Time (Source) Location / / Volume Laterality Blood specimen 02/25/2020 11:38 0 (specimen) AM EDT 11:38 AM EDT Carlee Galdamez MD POINT OF CARE TEST ORDERABLE S Performing Organization Address City/State/ZIP Code Phon e Number [address] [address] POCT Glucose (02/25/2020 7:44 AM EDT) athologist Signature POC Glucose 74 65 - 199 [place] mg/dL [facility] Comment: Supplemental ranges: <140 mg/dL before meals <180 mg/dL all other times of the day Specimen Anatomical Collection Method Collection Time Receive d Time (Source) Location / / Volume Laterality Blood specimen 02/25/2020 7:44 AM 020 7:44 (specimen) EDT AM EDT Carlee Galdamez MD POINT OF CARE TEST ORDERABLE S Performing Organization Address City/State/[place] [address] POCT Glucose (02/25/2020 4:42 AM EDT) athologist Signature POC Glucose 77 65 - 199 [facility] DONNA mg/dL [facility] Comment: Supplemental ranges: <140 mg/dL before meals <180 mg/dL all other times of the day Specimen Anatomical Collection Method Collection Time Receive d Time (Source) Location / / Volume Laterality Blood specimen 02/25/2020 4:42 AM 020 4:42 (specimen) EDT AM EDT Carlee Galdamez MD POINT OF CARE TEST ORDERABLE S Performing Organization Address City/State/[place] [address] (ABNORMAL) Differential, Automated (02/25/2020 2:39 AM EDT) [facility] Method Time Signature Neutrophils % 83.0 % [facility] Neutr Abs (ANC) 8.68 (H) 1.70 - [facility] 6.10 [facility] x10(3)/[facility] LABORATORY Lymphocytes % 9.7 % [facility] Lymphocytes Abs 1.0 0.9 - 3.2 [facility] x10(3)/[facility] LABORATORY Monocytes % 6.9 % [facility] Monocyte Abs 0.7 0.3 - 0.9 [facility] x10(3)/[facility] LABORATORY Eosinophils % 0.0 % [facility] Eosinophils Abs 0.0 0.0 - 0.4 [facility] x10(3)/[facility] LABORATORY Basophils % 0.1 % [facility] Basophils Abs 0.0 0.0 - 0.1 [facility] x10(3)/[facility] LABORATORY Immature Gran % 0.30 % [facility] Comment: Immature granulocytes(IG's)percentage an d absolute count will include metamyelocytes, myelocytes, and promyelo cytes. Blood smears from CBCs yielding IG's will be scanned manually for concor dance. If this scan disagrees with the automated IG or if promyelocytes are not ed, a manual differential will be performed. Teresa Gran Abs 0.03 0.00 - 0.04 x10(3)/[facility] LABORATORY Specimen Anatomical Collection Method Collection Time Receive d Time (Source) Location / / Volume Laterality Blood specimen 02/25/2020 2:39 AM 020 2:44 (specimen) EDT AM EDT Resulting Agency Comment Spec In Lab Jaycee Sweet MD HEMATOLOGY ORDERABLES Performing Organization Address City/State/[place] [address] (ABNORMAL) Hemogram (02/25/2020 2:39 AM EDT) Analysis Performed At Patho logist Time Signature WBC 10.4 (H) 4.0 - 9.5 [facility] LABORATORY RBC 3.59 (L) 4.00 - [place] 5.21 [facility] x10(6)/[facility] LABORATORY Hemoglobin 10.1 (L) 11.7 - [facility] [place] 15.5 gm/dL [facility] Hematocrit 31.2 (L) 35.7 - [facility] 45.8 % [facility] MCV 86.9 82.6 - [facility] 94.4 [facility] LABORATORY MCH 28.1 27.1 - [place] 32.0 pg [facility] MCHC 32.4 31.7 - [facility] 35.[facility] gm/dL [facility] Platelets 255 145 - 357 [facility] x10(3)/[facility] LABORATORY RDWSD 64.9 (H) 37.0 - [facility] [place] 46.0 [facility] LABORATORY RDWCV 20.6 (H) 11.5 - [place] 14.1 % [facility] MPV 10.0 7.6 - 12.9 [facility] LABORATORY nRBC % Auto 0.0 % [facility]ORATORY nRBC Abs Auto 0.000 0.000 - [place] 0.000 [facility] x10(3)/[facility] LABORATORY Specimen Anatomical Collection Method Collection Time Receive d Time (Source) Location / / Volume Laterality Blood specimen 02/25/2020 2:39 AM 020 2:44 (specimen) EDT AM EDT Resulting Agency Comment Spec In Lab Jaycee Sweet MD HEMATOLOGY ORDERABLES Performing Organization Address City/State/[place] [address] (ABNORMAL) Amylase (02/25/2020 2:39 AM EDT) P athologist Signature Amylase 201 (H) 28 - 100 [facility]L [facility] Specimen Anatomical Collection Method Collection Time Receive d Time (Source) Location / / Volume Laterality Blood specimen 02/25/2020 2:39 AM 020 2:44 (specimen) EDT AM EDT Resulting Agency Comment Spec In Lab Carlee Galdamez MD CHEMISTRY ORDERABLES Performing Organization Address City/[facility]/ZIP Code Phon e Number [address] Magnesium (02/25/2020 2:39 AM EDT) athologist Signature Magnesium 0.78 0.69 - 1.07 [facility] mmol/L [facility] Specimen Anatomical Collection Method Collection Time Receive d Time (Source) Location / / Volume Laterality Blood specimen 02/25/2020 2:39 AM 020 2:44 (specimen) EDT AM EDT Resulting Agency Comment Spec In Lab Carlee Galdamez MD CHEMISTRY ORDERABLES Performing Organization Address City/[facility]/ZIP Code Phon e Number [address] (ABNORMAL) Phosphorus (02/25/2020 2:39 AM EDT) athologist Signature Phosphorus 1.8 (L) 2.5 - 4.5 [facility] mg/dL [facility] Specimen Anatomical Collection Method Collection Time Receive d Time (Source) Location / / Volume Laterality Blood specimen 02/25/2020 2:39 AM 020 2:44 (specimen) EDT AM EDT Resulting Agency Comment Spec In Lab Carlee Galdamez MD CHEMISTRY ORDERABLES Performing Organization Address City/[facility]/ZIP [facility] [place] [place] [address] (ABNORMAL) Comprehensive metabolic panel (non-fasting) (02/25/2020 2:39 AM EDT) athologist Signature Glucose Lvl 89 65 - 199 [facility] mg/dL [facility] Comment: Diabetes: >=200 mg/dL plus symp toms BUN 8 8 - 18 mg/dL [facility] Creatinine 0.30 (L) 0.70 - 1.20 mg/dL [facility]ORY Sodium 136 135 - 145 mmol/L [facility] Potassium 3.6 3.5 - 5.0 mmol/L [facility] Comment: Please note: ??Patients with WBC >100,00 0 may have falsely elevated Potassium levels. ??For accurate Potassium quantif ication in these patients send serum separator tube (gold top) for subsequent determinations. ??Contact the Clinical Chemistry Laboratory if there are any qu estions. Chloride 105 98 - 107 mmol/L [facility] CO2 25 22 - 31 mmol/L [facility] Anion Gap 6 5 - 15 mmol/L [facility] Calcium 7.6 (L) 8.5 - 10.5 mg/dL [facility] Total Protein 4.9 (L) 6.1 - 8.0 gm/dL [facility] LABORATORY Albumin 2.7 (L) 3.2 - 5.2 gm/dL [facility] AST 89 (H) 0 - 30 unit/L [facility] ALT 109 (H) 0 - 30 unit/L [facility] Alk Phos 40 35 - 105 unit/L [facility] Total Bilirubin 0.4 0.2 - 1.3 mg/dL [facility] LABORATORY Estimated GFR 127 >=60 mL/min/1.73 m?? [facility] Comment: The eGFR was calculated using the CKD-EP I equation. As with all creatinine based estimates of kidney function, eGFR values calculated with the CKD-EPI equation are not accurate in patients wi th acute kidney failure, extremes of body mass or the acutely ill. http://[employer]/[facility]MONnk eGFR 147 >=60 mL/min/1.73 m?? [facility] Comment: The eGFR was calculated using the CKD-EP I equation. As with all creatinine based estimates of kidney function, eGFR values calculated with the CKD-EPI equation are not accurate in patients wi th acute kidney failure, extremes of body mass or the acutely ill. http://[employer]/[facility] GUYMONnkf Specimen Anatomical Collection Method Collection Time Receive d Time (Source) Location / / Volume Laterality Blood specimen 02/25/2020 2:39 AM 020 2:44 (specimen) EDT AM EDT Resulting Agency Comment Spec In Lab Carlee Galdamez MD CHEMISTRY ORDERABLES Performing Organization Address [facility] [place] [address] Amylase Level Body Fluid JOSE Drain (02/25/2020 1:45 AM EDT) athologist Signature Amylase, BF 419 unit/L [facility] Comment: No reference range is available for the specimen type submitted. ??The performance of this assay for the submit kisha type has not been validated and results should be interpreted accordingl y and with regard to the patient's clinical status. Amylase BF Type JOSE Drain [facility] Specimen Anatomical Collection Method Collection Time Receive d Time (Source) Location / / Volume Laterality JOSE Drain 02/25/2020 1:45 AM 0 5:42 EDT AM EDT Resulting Agency Comment Spec In Lab Carlee Galdamez MD BODY FLUIDS AND STOOLS ORDER AYDIN Performing Organization Address [facility] Phon e Number [address] POCT Glucose (02/24/2020 11:14 PM EDT) athologist Signature POC Glucose 94 65 - 199 [facility] Comment: Supplemental ranges: <140 mg/dL before meals <180 mg/dL all other times of the day Specimen Anatomical Collection Method Collection Time Receive d Time (Source) Location / / Volume Laterality Blood specimen 02/24/2020 11:14 0 (specimen) PM EDT 11:14 PM EDT Carlee Galdamez MD POINT OF CARE TEST ORDERABLE S Performing Organization Address City/[facility]/ZIP [facility] [place] [place] Phon e Number [address] POCT Glucose (02/24/2020 7:42 PM EDT) athologist Signature POC Glucose 93 65 - 199 [facility]dL [facility] Comment: Supplemental ranges: <140 mg/dL before meals <180 mg/dL all other times of the day Specimen Anatomical Collection Method Collection Time Receive d Time (Source) Location / / Volume Laterality Blood specimen 02/24/2020 7:42 PM 020 7:42 (specimen) EDT PM EDT Carlee Galdamez MD POINT OF CARE TEST ORDERABLE S Performing Organization Address City/State/ZIP Code Phon e Number [address] POCT Glucose (02/24/2020 5:09 PM EDT) athologist Signature POC Glucose 108 65 - 199 [place] mg/dL [facility] Comment: Supplemental ranges: <140 mg/dL before meals <180 mg/dL all other times of the day Specimen Anatomical Collection Method Collection Time Receive d Time (Source) Location / / Volume Laterality Blood specimen 02/24/2020 5:09 PM 020 5:09 (specimen) EDT PM EDT Carlee Galdamez MD POINT OF CARE TEST ORDERABLE S Performing Organization Address City/State/ZIP Code Phon e Number [address] POCT Glucose (02/24/2020 12:06 PM EDT) athologist Signature POC Glucose 128 65 - 199 [place] mg/dL [facility] Comment: Supplemental ranges: <140 mg/dL before meals <180 mg/dL all other times of the day Specimen Anatomical Collection Method Collection Time Receive d Time (Source) Location / / Volume Laterality Blood specimen 02/24/2020 12:06 0 (specimen) PM EDT 12:06 PM EDT Carlee Galdamez MD POINT OF CARE TEST ORDERABLE S Performing Organization Address City/State/ZIP Code Phon e Number [address] POCT Glucose (02/24/2020 7:49 AM EDT) athologist Signature POC Glucose 121 65 - 199 [place] mg/dL [facility] Comment: Supplemental ranges: <140 mg/dL before meals <180 mg/dL all other times of the day Specimen Anatomical Collection Method Collection Time Receive d Time (Source) Location / / Volume Laterality Blood specimen 02/24/2020 7:49 AM 020 7:49 (specimen) EDT AM EDT Carlee Galdamez MD POINT OF CARE TEST ORDERABLE S Performing Organization Address City/[facility]/[place] [address] Amylase Level Body Fluid JOSE Drain (02/24/2020 4:17 AM EDT) P athologist Signature Amylase, BF 2,878 unit/L [facility] Comment: No reference range is available for the specimen type submitted. ??The performance of this assay for the submit kisha type has not been validated and results should be interpreted accordingl y and with regard to the patient's clinical status. Amylase BF Type JOSE Drain [facility] Specimen Anatomical Collection Method Collection Time Receive d Time (Source) Location / / Volume Laterality JOSE Drain 02/24/2020 4:17 AM 0 5:34 EDT AM EDT Resulting Agency Comment Spec In Lab Carlee Galdamez MD BODY FLUIDS AND STOOLS ORDER AYDIN Performing Organization Address City/[facility]/[place] [address] POCT Glucose (02/24/2020 4:15 AM EDT) athologist Signature POC Glucose 119 65 - 199 [facility] mg/dL [facility] Comment: Supplemental ranges: <140 mg/dL before meals <180 mg/dL all other times of the day Specimen Anatomical Collection Method Collection Time Receive d Time (Source) Location / / Volume Laterality Blood specimen 02/24/2020 4:15 AM 020 4:15 (specimen) EDT AM EDT Carlee Galdamez MD POINT OF CARE TEST ORDERABLE S Performing Organization Address City/[facility]/[place] [address] (ABNORMAL) Differential, Automated (02/24/2020 1:42 AM EDT) [facility] gist Method Time Signature Neutrophils % 83.8 % [facility] Neutr Abs (ANC) 10.76 (H) 1.70 - [facility] 6.10 [facility] x10(3)/[facility] LABORATORY Lymphocytes % 7.4 % [facility] Lymphocytes Abs 1.0 0.9 - 3.2 [facility] x10(3)/[facility] LABORATORY Monocytes % 8.1 % [facility] Monocyte Abs 1.0 (H) 0.3 - 0.9 [facility] x10(3)/[facility] LABORATORY Eosinophils % 0.0 % [facility] Eosinophils Abs 0.0 0.0 - 0.4 [facility] x10(3)/[facility] LABORATORY Basophils % 0.1 % [facility] Basophils Abs 0.0 0.0 - 0.1 [facility] x10(3)/[facility] LABORATORY Immature Gran % 0.60 % [facility] Comment: Immature granulocytes(IG's)percentage an d absolute count will include metamyelocytes, myelocytes, and promyelo cytes. Blood smears from CBCs yielding IG's will be scanned manually for concor dance. If this scan disagrees with the automated IG or if promyelocytes are not ed, a manual differential will be performed. Teresa Gran Abs 0.08 (H) 0.00 - 0.04 x10(3)/[facility] LABORATORY Specimen Anatomical Collection Method Collection Time Receive d Time (Source) Location / / Volume Laterality Blood specimen 02/24/2020 1:42 AM 020 2:09 (specimen) EDT AM EDT Resulting Agency Comment Spec In Lab Jaycee Sweet MD HEMATOLOGY ORDERABLES Performing Organization Address City/State/[place] [address] (ABNORMAL) Hemogram (02/24/2020 1:42 AM EDT) Analysis Performed At [facility] logist Time Signature WBC 12.8 (H) 4.0 - 9.5 [facility] x10(3)/[facility] LABORATORY RBC 4.06 4.00 - [place] 5.21 [facility] x10(6)/[facility] LABORATORY Hemoglobin 11.1 (L) 11.7 - [place] 15.5 gm/dL [facility] Hematocrit 34.6 (L) 35.7 - [facility] 45.8 % [facility] MCV 85.2 82.6 - [facility] 94.4 [facility] LABORATORY MCH 27.3 27.1 - [place] 32.0 pg [facility] MCHC 32.1 31.7 - [facility] 35.0 gm/dL [facility] Platelets 302 145 - 357 [facility] x10(3)/[facility] LABORATORY RDWSD 62.9 (H) 37.0 - [facility] 46.0 [facility] LABORATORY RDWCV 20.3 (H) 11.5 - [facility] 14.1 % [facility] MPV 9.7 7.6 - 12.9 [facility] LABORATORY nRBC % Auto 0.0 % [facility]ORATORY nRBC Abs Auto 0.000 0.000 - [place] 0.000 [facility] x10(3)/[facility] LABORATORY Specimen Anatomical Collection Method Collection Time Receive d Time (Source) Location / / Volume Laterality Blood specimen 02/24/2020 1:42 AM 020 2:09 (specimen) EDT AM EDT Resulting Agency Comment Spec In Lab Jaycee Sweet MD HEMATOLOGY ORDERABLES Performing Organization Address City/State/[place] [address] (ABNORMAL) Amylase (02/24/2020 1:42 AM EDT) P athologist Signature Amylase 401 (H) 28 - 100 [facility] unit/L [facility] Specimen Anatomical Collection Method Collection Time Receive d Time (Source) Location / / Volume Laterality Blood specimen 02/24/2020 1:42 AM 020 2:09 (specimen) EDT AM EDT Resulting Agency Comment Spec In Lab Carlee Galdamez MD CHEMISTRY ORDERABLES Performing Organization Address City/State/ZIP Code Phon e Number [address] Magnesium (02/24/2020 1:42 AM EDT) athologist Signature Magnesium 0.78 0.69 - 1.07 [facility] mmol/L [facility] Specimen Anatomical Collection Method Collection Time Receive d Time (Source) Location / / Volume Laterality Blood specimen 02/24/2020 1:42 AM 020 2:09 (specimen) EDT AM EDT Resulting Agency Comment Spec In Lab Carlee Galdamez MD CHEMISTRY ORDERABLES Performing Organization Address City/State/ZIP Code Phon e Number [address] Phosphorus (02/24/2020 1:42 AM EDT) athologist Signature Phosphorus 3.1 2.5 - 4.5 [facility] mg/dL [facility] Specimen Anatomical Collection Method Collection Time Receive d Time (Source) Location / / Volume Laterality Blood specimen 02/24/2020 1:42 AM 020 2:09 (specimen) EDT AM EDT Resulting Agency Comment Spec In Lab Carlee Galdamez MD CHEMISTRY ORDERABLES Performing Organization Address City/[facility]/ZIP Code Phon e Number [address] (ABNORMAL) Comprehensive metabolic panel (non-fasting) (02/24/2020 1:42 AM EDT) athologist Signature Glucose Lvl 137 65 - 199 [facility] mg/dL [facility] Comment: Diabetes: >=200 mg/dL plus symp toms BUN 12 8 - 18 mg/dL [facility] Creatinine 0.41 (L) 0.70 - 1.20 mg/dL [facility] Sodium 132 (L) 135 - 145 mmol/L [facility] Potassium 4.3 3.5 - 5.0 mmol/L [facility] Comment: Please note: ??Patients with WBC >100,00 0 may have falsely elevated Potassium levels. ??For accurate Potassium quantif ication in these patients send serum separator tube (gold top) for subsequent determinations. ??Contact the Clinical Chemistry Laboratory if there are any qu estions. Chloride 99 98 - 107 mmol/L [facility] CO2 25 22 - 31 mmol/L [facility] Anion Gap 8 5 - 15 mmol/L [facility] Calcium 7.9 (L) 8.5 - 10.5 mg/dL [facility] Total Protein 5.2 (L) 6.1 - 8.0 gm/dL [facility]OR[facility] Albumin 3.0 (L) 3.2 - 5.2 gm/dL [facility] AST 73 (H) 0 - 30 unit/L [facility] ALT 69 (H) 0 - 30 unit/L [facility] Alk Phos 49 35 - 105 unit/L [facility] Total Bilirubin 0.6 0.2 - 1.3 mg/dL [facility] LABORATORY Estimated GFR 115 >=60 mL/min/1.73 m?? [facility] Comment: The eGFR was calculated using the CKD-EP I equation. As with all creatinine based estimates of kidney function, eGFR values calculated with the CKD-EPI equation are not accurate in patients wi th acute kidney failure, extremes of body mass or the acutely ill. http://[employer]/[facility]MONnkf eGFR 133 >=60 mL/min/1.73 m?? [facility] Comment: The eGFR was calculated using the CKD-EP I equation. As with all creatinine based estimates of kidney function, eGFR values calculated with the CKD-EPI equation are not accurate in patients wi th acute kidney failure, extremes of body mass or the acutely ill. http://[employer]/[facility] GUYMONnkf Specimen Anatomical Collection Method Collection Time Receive d Time (Source) Location / / Volume Laterality Blood specimen 02/24/2020 1:42 AM 020 2:09 (specimen) EDT AM EDT Resulting Agency Comment Spec In Lab Carlee Galdamez MD CHEMISTRY ORDERABLES Performing Organization Address City/State/[place] [address] POCT Glucose (02/24/2020 12:34 AM EDT) athologist Signature POC Glucose 167 65 - 199 [place] mg/dL [facility] Comment: Supplemental ranges: <140 mg/dL before meals <180 mg/dL all other times of the day Specimen Anatomical Collection Method Collection Time Receive d Time (Source) Location / / Volume Laterality Blood specimen 02/24/2020 12:34 0 (specimen) AM EDT 12:34 AM EDT Carlee Galdamez MD POINT OF CARE TEST ORDERABLE S Performing Organization Address City/[facility]/[place] [address] POCT Glucose (02/23/2020 6:50 PM EDT) athologist Signature POC Glucose 145 65 - 199 [place] mg/dL [facility] Comment: Supplemental ranges: <140 mg/dL before meals <180 mg/dL all other times of the day Specimen Anatomical Collection Method Collection Time Receive d Time (Source) Location / / Volume Laterality Blood specimen 02/23/2020 6:50 PM 020 6:50 (specimen) EDT PM EDT Carlee Galdamez MD POINT OF CARE TEST ORDERABLE S Performing Organization Address City/[facility]/[place] [address] POCT Glucose (02/23/2020 3:14 PM EDT) athologist Signature POC Glucose 155 65 - 199 [place] mg/dL [facility] Comment: Supplemental ranges: <140 mg/dL before meals <180 mg/dL all other times of the day Specimen Anatomical Collection Method Collection Time Receive d Time (Source) Location / / Volume Laterality Blood specimen 02/23/2020 3:14 PM 020 3:14 (specimen) EDT PM EDT Carlee Galdamez MD POINT OF CARE TEST ORDERABLE S Performing Organization Address City/State/[place] [address] Specimen to Pathology (02/23/2020 10:37 AM EDT) Specimen Anatomical Collection Method Collection Time Receive d Time (Source) Location / / Volume Laterality AP Specimen 02/23/2020 10:37 02/23/2020 AM EDT 10:37 AM EDT Narrative [facility] - 02/23/2020 10:37 AM EDT Specimen requisition ordered. ??Separate Pathology report to follow Carlee Galdamez MD PATHOLOGY/CYTOLOGY ORDERABLE S Performing Organization Address City/[facility]/[place] [address] Specimen to Pathology (02/23/2020 9:49 AM EDT) Specimen Anatomical Collection Method Collection Time Receive d Time (Source) Location / / Volume Laterality AP Specimen 02/23/2020 9:49 AM 0 9:49 EDT AM EDT Narrative [facility] - 02/23/2020 9:49 AM EDT Specimen requisition ordered. ??Separate Pathology report to follow Carlee Galdamez MD PATHOLOGY/CYTOLOGY ORDERABLE S Performing Organization Address City/[facility]/[place] [address] Surgical Pathology Report (02/23/2020 9:47 AM EDT) Component Value Ref Test Analysis Performed At [facility] Range Method Time Signature Surgical [id number] ? Location: 2WST; 0208; A [facility] Report The signing pathologist has (i) examined [...] Bone & Soft Tissue Pathologist Performed at: ??-[facility] Dept. of Pathology, [place], [place] SYNOPTIC Clinical ? Preresection Tr eatment: [...] 10 cm ??Lesser Curvature: 6 cm ??Serosa: [place], smooth and glistening. ??Mucosa: [place]-pink with the usual rugal folds. DUODENUM ??Length/Diameter: 15 x 3 cm ??Serosa: [place], smooth and glistening. ??Mucosa: [place]-red with the usual folds. ??Ampulla of Vater: Unremarkable. GALLBLADDER ??Size: 10.5 x 3.0 x 2.5 cm ??Serosa: [place], smooth and glistening. ??Mucosa: Green-brown, velvety. ??Cystic Lymph Node: Present OTHER Lymph nodes: Multiple lymph nodes are identified. Ink Designation: The posteri or retroperitoneal margin is inked black. The anterior serosal surface is inked red. Sections/Processing: The following tissue is subm itted for frozen section: The pancreatic neck margin is submitted for frozen section, en face, as FS 1. Toll Service Observer sections in 31 cassettes as follows: ?A1: [...] Culp MD Verified: ??02/23/2020 ?Pathologist Performed at: ??-[facility] Dept. of Pathology, [place], [place] This intraoperative consultation should be interpreted as a preliminary diagnosis pending review of the entire specimen and sp ecial studies, if any. Specimen (Source) Anatomical Collection Method Collection Time Re ceived Time Location / / Volume Laterality 02/23/2020 9:47 AM EDT Carlee Galdamez MD PATHOLOGY/CYTOLOGY ORDERABLE S Performing Organization Address City/State/[place] [address] Anaerobic Culture (02/23/2020 9:40 AM EDT) [facility] Method Time Signature Anaerobic No anaerobic [facility] Culture organisms [facility] LABORATORY Specimen Anatomical Collection Method Collection Time Receive d Time (Source) Location / / Volume Laterality Bile specimen 02/23/2020 9:40 AM 02/23/20 20 (specimen) EDT 11:31 AM EDT Comment: BILE DUCT CULTURE Resulting Agency Comment Spec In Lab Carlee Galdaemz MD MICROBIOLOGY - GENERAL ORDER AYDIN Performing Organization Address City/State/ZIP Code Phon e Number [address] Body Fluid Culture, Aerobic (02/23/2020 9:40 AM EDT) Component Value Ref Test Analysis Performed At Patholo gist Range Method Time Signature Body Fluid No growth [facility] Culture [facility] LABORATORY Gram Stain Cytocentrifuge Gram Stain performed [facility] No Neutrophils seen. [place] No microorganisms seen. [facility] LABOR[facility]ORY Specimen Anatomical Collection Method Collection Time Receive d Time (Source) Location / / Volume Laterality Bile specimen 02/23/2020 9:40 AM 02/23/20 20 (specimen) EDT 11:31 AM EDT Comment: BILE DUCT CULTURE Resulting Agency Comment Spec In Lab Carlee Galdamez MD MICROBIOLOGY - GENERAL ORDER AYDIN Performing Organization Address City/[facility]/ZIP Code Phon e Number [address] Specimen to Pathology (02/23/2020 9:25 AM EDT) Specimen Anatomical Collection Method Collection Time Receive d Time (Source) Location / / Volume Laterality AP Specimen 02/23/2020 9:25 AM 0 9:25 EDT AM EDT Narrative [facility] LABORAT ORY - 02/23/2020 9:25 AM EDT Specimen requisition ordered. ??Separate Pathology report to follow Carlee Galdamez MD PATHOLOGY/CYTOLOGY ORDERABLE S Performing Organization Address City/[facility]/[place] [address] (ABNORMAL) BLOOD GAS 2 ARTERIAL (02/23/2020 8:09 AM EDT) Analysis Performed At Patho logist Time Signature pH Art 7.45 7.35 - [facility] 7.45 [facility] LABORATORY pCO2 Art 32 (L) 35 - 45 [facility] LABORATORY pO2 Art 306 (H) 85 - 104 [facility] LABORATORY HCO3 Art 21.4 20.0 - [facility] 26.0 [facility] mmol/L [facility] LABORATORY BE Art -2.7 -3.0 - 3.0 [facility] mmol/L [facility]ORATORY Hgb Blood Gas 11.1 (L) 11.7 - [facility] 15.5 gm/dL [facility] O2HB Art 99.1 (H) 94.0 - [facility] 97.0 % [facility]ORAT[facility] COHB Art 0.2 % [facility] LABOR[facility]ORY Comment: Nonsmokers: 0.5-1.5% COHB Smokers: Variable, but usually less than 10% Toxic: 20-30% COHB Lethal: Greater than 60% COHB METHB Art 0.3 <=1.5 % [facility] Na Whole Blood 134 (L) 135 - 145 mmol/L [facility]ORAT[facility] K Whole Blood 4.1 3.5 - 5.0 mmol/L [facility] LABOR[facility]ORY Comment: Please note: Patients with WBC >100,000 may have falsely elevated Potassium levels. Contact the Clinical Chemistry L aboratory if there are any questions. ICa Whole Blood 1.12 (L) 1.15 - 1.33 mmol/L [facility]OR[facility] Comment: Note: ??Total bilirubin higher than 20 m g/dL may lead to falsely low ionized calcium. CL Whole Blood 105 98 - 107 mmol/L [facility] Gluc Whole Bld 102 65 - 199 mg/dL [facility] LABORATORY Comment: Diabetes: >=200 mg/dL plus symp toms. Lactate WB 0.6 0.5 - 2.2 mmol/L [facility] LABORAT[facility] FIO2 Art 50 % [facility] Flow Art 2.[address] [facility] PF Ratio Art 612 [facility] LABORATORY Specimen Anatomical Collection Method Collection Time Receive d Time (Source) Location / / Volume Laterality Blood specimen 02/23/2020 8:09 AM 020 8:09 (specimen) EDT AM EDT Carlee Galdamez MD CHEMISTRY ORDERABLES Performing Organization Address City/State/[place] [address] XR Fluoro No Rad <1Hr - OR Use (02/23/2020 7:10 AM EDT) Specimen (Source) Anatomical Location Collection Method / Collectio n Time Received Time / Laterality Volume Narrative [facility] - 02/23/2020 7:41 AM EDT This exam is auto-finalizing. No interpr etation was done. Carlee Galdamez MD IMG FLUORO ORDERABLES Performing Organization Address City/[facility]/ZIP Code Phon e Number RAD [place], [place] ABORH Recheck Status (02/23/2020 6:38 AM EDT) [facility] Method Time Signature ABORH Recheck Order Placed [facility] LABORATORY ABORH Type Complete [facility] LABORATORY Specimen Anatomical Collection Method Collection Time Receive d Time (Source) Location / / Volume Laterality Blood specimen 02/23/2020 6:38 AM 020 6:39 (specimen) EDT AM EDT Resulting Agency Comment Spec In Lab Nadir Samaniego MD BLOOD BANK ORDERABLES Performing Organization Address City/[facility]/[place] [address] Antibody screen (02/23/2020 6:38 AM EDT) [facility] Method Time Signature Ab Screen Negative [facility] LABORATORY Expires at 02/26/2020 [facility] 2359 on: [facility] LABORATORY Specimen Anatomical Collection Method Collection Time Receive d Time (Source) Location / / Volume Laterality Blood specimen 02/23/2020 6:38 AM 020 6:38 (specimen) EDT AM EDT Resulting Agency Comment Spec In Lab Nadir Samaniego MD BLOOD BANK ORDERABLES Performing Organization Address City/[facility]/[place] [address] ABO/Rh Typing (02/23/2020 6:38 AM EDT) P athologist Signature ABORh Type A Pos [facility] LABORATORY Specimen Anatomical Collection Method Collection Time Receive d Time (Source) Location / / Volume Laterality Blood specimen 02/23/2020 6:38 AM 020 6:38 (specimen) EDT AM EDT Resulting Agency Comment Spec In Lab Nadir Samaniego MD BLOOD BANK ORDERABLES Performing Organization Address City/State/ZIP Code Phon [place] [address] documented in this encounter Visit Diagnoses Not on filedocumented in this encounter Admitting Diagnoses Diagnosis GIST (gastrointestinal stromal tumor), 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 enoxaparin (LOVENOX) injection Given 02/29/2020 9:12 PM EDT 40 m g Abdominal Tissue 40 mg 40 mg, Subcutaneous, NIGHTLY, First dose on Fri02/23/20 at 2100, Until Discontinued, Routine Given 02/28/2020 8:24 PM EDT 40 mg Given 02/27/2020 8:40 PM EDT 40 mg glucagon (human recombinant) injection S olR 1 [...] weight of tube = 37.5 grams., Routine insulin lispro (HumaLOG) VIAL injection 1-4 Units 1-4 Units, Subcutaneous, 4 TIMES DAILY B EFORE MEALS & NIGHTLY, First dose (after last modification) on Fri02/28/20 at 1130, Until Disc ontinued, CORRECTION BOLUS [...] Routine lidocaine (LIDODERM) 5 % patch 1 patch 1 patch, Transdermal, EVERY 24 HOURS, First dose on u 02/24/20 at 0800, Until Discontinued, Apply patch(es) for 12 josi rs, and then remove for 12 hours, Routine lidocaine (LIDODERM) 5 %(700 mg/patch) P atch Removal Transdermal, EVERY 24 HOURS, First dose on Blossom 02/23/2 0 at 1915, Until Discontinued, Remove lidocaine 5 %(700 mg/patch) patch twdinh-mrnjqokg-llvscxr DR (Creon 24) Given 02/29/2020 3:20 PM E DT 1 capsule 24,000-76,000 -120,000 unit per capsule 1 capsule 1 capsule, Oral, WITH SNACKS, Starting on Fri02/28/20 at 0818, Until Fri03/01/20 at 1443, Routine qlwodn-vpxovgiz-olbxqoj DR (Creon 24) Given 03/01/2020 8:18 AM E DT 2 capsules 24,000-76,000 -120,000 unit per capsule 1-2 capsule 1-2 capsule, Oral, 3 TIMES DAILY WITH MEALS, First dose on Fri02/28/20 at 0915, Until Discontinued, Patient to self-determine dose based on amount eaten., Routine Given 02/28/2020 4:23 PM EDT 2 capsules Given 02/28/2020 12:04 PM EDT 1 capsule metoclopramide (Reglan) tablet 10 mg Given 03/01/2020 11:57 AM EDT 10 mg 10 mg, Oral, 4 TIMES DAILY BEFORE MEALS & NIGHTLY, First dose on Fri03/01/20 at 0915, Until Discontinued, GIVE REGARDLESS OF IF EATING OR NOT, STAT Given 03/01/2020 8:27 AM EDT 10 mg ondansetron (ZOFRAN) injection 4-8 mg Given 02/29/2020 5:30 PM EDT 4 mg 4-8 mg, Intravenous, EVERY 8 HOURS PRN, Starting on Fri02/23/20 at 1832, Until Fri03/01/20 at 1443, Nausea, Vomiting, If multiple antiemetics are ordered, use ondansetron first May repeat times one in 30 minutes if ineffective. Given 02/29/2020 2:18 AM EDT 8 mg Given 02/24/2020 8:38 AM EDT 4 mg pantoprazole EC (Protonix) tablet 40 mg [...] 0613, Until Fri03/01/20 at 1443, Irritation, Routine senna-docusate (Pericolace) 8.6-50 mg pe r tablet 1 tablet 1 tablet, Oral, 2 TIMES DAILY, First dos e (after last modification) on Fri02/29/20 at 2100, Until Discontinued, Routine sodium chloride 0.9 % [...] this medication record., Recovery (Recovery-Hospital Unit), Routine traMADoL (Ultram) tablet 50 mg 50 mg, Oral, EVERY 6 HOURS PRN, Starting on Fri at 0719, Until Fri03/01/20 at 1443, Pain, FOR PAIN UNCONTROLLED BY TYLEN OL, Routine tube feeding diet New Bag 02/29/2020 5:45 [...] mg (CANCELED) 0550 (Given - Provider: Lisa Walker RN) 650 mg, Per J Tube, EVERY 6 HOURS SCHEDU LED, First dose on Fri02/25/20 at 1200, Until Discontinued, Maximum dose of acetaminophen is 4000 mg from all sources in 24 hours. When ordered for pain, acetami nophen should be given even when other o rdered pain medications are indicated. , Routine acetaminophen (Tylenol) tablet 1,000 mg 1204 (Given - Provider: Valeria Sanders RN)2022 (Given - Provider: Marjorie Foster RN) 0200 (Not Given - Provider: Rex Parra RN - Reason: Patient/family refused)0600 (Not Given - Provider: Rex Parra RN - Reason: See comment)1313 (Given - Provider: Sudha Lazcano RN) 0000 (Not Given - Provider: Alina sutton RN - Reason: Patient/family refused)0600 (Not Given [...] met) 0730 (Not Given - Provider: Stacie anaya RN - Reason: Order parameters not met)1130 (Due) 1-4 Units, Subcutaneous, 4 TIMES DAILY B EFORE MEALS & NIGHTLY, First dose (after last modification) on Fri02/28/20 at 1130, Until Discontinued, CORRECTION BOLUS [1-4 Units] Sensitive Sliding Sc 2100 (Not Given - Provider: Marjorie Foster, CLARKE - Reason: Order parameters not met) 1630 (Not Given - Provider: Sudha Lazcano RN - Reason: Order parameters not met)2019 (Not Given - Provider: Alina Osman, RN - Reason: Order parameters not met) [...] Discontinued, Remove lidocaine 5 %(700 mg/patch) patch udpkxl-xvfstkut-kzaaxvu DR (Creon 24) 24 ,000-76,000 -120,000 unit per capsule 1 capsule 1520 (Given - Provider: Sudha Lazcano RN) 1 capsule, Oral, WITH SNACKS, Starting M on 02/28/20 at 0818, Until Fri03/01/20 at 1443, Routine keoava-rwimwthw-ntphtle DR (Creon 24) 24 ,000-76,000 -120,000 unit per [...] Angely Juarez RN)2203 (Given - Provider: Alina Osman RN) 0730 (Not Given - Provider: Stacie Beatty RN - Reason: Medication Discontinued) 10 mg, Intravenous, 4 TIMES DAILY BEFORE MEALS & NIGHTLY, First dose on Fri02/29/20 at 1745, Until Discontinued, Doses greater than 10mg should be diluted into 50ml NS. metoclopramide (Reglan) tablet 10 mg 0827 (Given - Provider: Stacie Beatty, CLARKE)1157 (Given - Provider: Stacie Beatty RN) 10 mg, Oral, 4 TIMES DAILY BEFORE MEALS & NIGHTLY, First dose on Fri03/01/20 at 0915, Until Discontinued, GIVE REGARDLESS OF IF EATING OR NOT, STAT pantoprazole (PROTONIX) injection 40 mg (CANCELED) (Given - Provider: Valeria Sanders RN)2023 (Given - Provider: Marjorie Foster RN) 40 mg, Intravenous, 2 TIMES DAILY, First dose on Fri02/23/20 at 2100, Until Discontinued, Reconstitute with 10 mL of normal saline to a concentration of 4 mg/mL and infuse slowly over 2 minutes. , Routine pantoprazole EC (Protonix) tablet 40 mg 803 (Given - Provider: Sudha Lazcano RN)2113 (Given - Provider: Alina Osman, CLARKE) 817 (Given - Provider: Stacie Beatty RN) 40 mg, Oral, 2 TIMES DAILY, First dose o n Fri02/29/20 at 0900, Until Discontinued, DO NOT CRUSH OR OPEN, Routine senna-docusate (Pericolace) 8.6-50 mg per tablet 1 tablet 2099 (Not Given - Provider: Alina Osman RN [...] Sanders, CLARKE)2022 (Not Given - Provider: Marjorie Foster RN - Reason: Patient/family refused) 2 tablet, Oral, 2 TIMES DAILY, First dos e on Fri02/28/20 at 0915, Until Discontinued, Routine sodium chloride 0.9 % (flush) flush 5 mL 925 (Given - Provider: Valeria Sanders RN)2023 (Given - Provider: Marjorie Foster CLRAKE) 0804 (Given - Provider: Sudha Lazcano, RN)2116 (Given - Provider: Alina Osman, CLARKE) 0818 (Given - Provider: Stacie Beatty, CLARKE) 5 mL, Intravenous, 2 TIMES DAILY, First [...] 0012 (Rate/Dose Change - Provider: Rex Parra CLARKE) 1,248 mL, Per J Tube, at 52 mL/hr, KULWANT NUOUS, Starting Fri02/28/20 at 0915, Until Fri02/29/20 at 0723, Administer flushes and check residuals per policy tube feeding diet 1745 (New Bag - Provider: Angely Juarez, RN) 0812 (Stopped - Provider: Stacie Beatty, CLARKE) 832 mL, Per J Tube, at 52 [...] mL), Subcutaneous, ONCE PRN, 1 dose, Starting Fri02/23/20 at 1832, Until Fri03/01/20 at 1443, for discomfort with PIV insertion, Recovery (Recovery-Hospital Unit), Routine ondansetron (ZOFRAN) injection 4-8 mg 02 18 (Given - Provider: Rex Parra RN)1730 (Given - Provider: Angely Juarez RN) 4-8 mg, Intravenous, EVERY 8 HOURS PRN, Starting Fri02/23/20 at 1832, Until Fri03/01/20 at 1443, Nausea, Vomiting, If multiple antiemetics are ordered, use ondansetron first May repeat times one in 30 minutes if ineffective. phenol 1.4% (CHLORASEPTIC) spray 1 spray 1 spray, Oral, EVERY 4 HOURS PRN, [facility] 02/26/20 at 0613, Until Fri03/01/20 at 1443, Irritation, Routine prochlorperazine (COMPAZINE) injection 5 mg (CANCELED) 0745 (Given - Provider: Sudha Lazcano RN) 5 mg, Intravenous, EVERY 6 HOURS PRN, St arting Fri02/29/20 at 0716, Until Fri02/29/20 at 1659, Nausea, Vomiting, Routine sodium chloride 0.9 % (flush) flush 5-20 mL 5-20 mL, Intravenous, EVERY 1 MIN PRN, S tarting Fri02/23/20 at 1832, Until Fri03/01/20 at 1443, flush, Flush pertains to all indwelling lines. Flush per protocol found in the job aid using the link pr ovided on this medication record., Recovery (Recovery-Hospital U nit), Routine traMADoL (Ultram) tablet 50 mg 50 mg, Oral, EVERY 6 HOURS PRN, Starting Fri02/29/20 at 0719, Until Fri03/01/20 at 1443, Pain, FOR PAIN UNCONTROLLED BY TYLENOL, Routine Linked Groups Order Group 1: POCT Fingerstick Glucose (CANCELED) Routine, 4 TIMES DAILY BEFORE MEALS & AT BEDTIME, First occurrence on Mon 19/20 at 1100, Until Specified
Consider choosing EVERY [...]
Routine documented in this encounter Care Teams Crepe Laminator Operator Relationship Specialty Start Date End Date Irving Wheeler MD PCP - General 06/23/[address] [place] [id number] documented as of this encounter
--- OUTSIDE RECORDS SUMMARY | 2022-02-01 00:27 | XMS_ITS | Encounter Summary ---
:1960 Author Organization [facility] [place] [address] Care Team Providers Name Role Phone Irving Wheeler MD Primary Care Provider [phone] Reason for Visit Reason Comments Medication Management Encounter Details Date Type Department Care Team Description 02/21/2020 Specialty Pharmacy Pharmacy at [facility] [place], [place] [id number] Social History Tobacco Use Types Packs/Day Years [...] documented as of this encounter Progress Notes Tamica Stringer [facility] - 02/21/2020 4:44 PM EDT Clinical Management Plan: Transfer of Care/Discharge Specialty Services Specialty Pharmacy Consultation; Tamica Stringer [facility] Comprehensive Medication Management (CMM) Mary Kay Morenoarty [address] [facility] [phone] Telephone Information: Work Phone Not on file. Is the patient transferring services to a different Specialty Pharmacy or discontinuing the medication? Yes Medication: Imatinib mesylate 400mg Reason for discontinuation or transfer: Side effect intolerance Approximate date of discontinuation or transfer: 02/07/20 Instructions provided to patient about discharge/transfer: yes - let specialty pharmacy know when provider prescribes new specialty medication Provider aware of discontinuation or transfer: yes Patient understands no changes to current drug regimen were made at the appointment and that [facility] is providing recommendations (summary located at top of note) for provider review and follow up. Tamica Stringer Angel 02/21/20 4:44 PM documented in this encounter Plan of Treatment Upcoming Encounters Date Type Specialty Care Team Description 02/15/2022 Office Visit Hematology and Oncology Morris Dozier MD [facility] ONCOLOGY [place] [phone] (Wo rk) documented as of this encounter Goals Goal Patient Goal Associated Recent Patient-Stated? Author Type Problems Progress DH Home Medication Patient No Tamera calvillo, Compliance and Facing Brandt Morin, Understanding Action Plan [facility] Note: Formatting of this note might be d ifferent from the original. Remain 95% adherent to Imatinib therapy without significant neutropenia as assessed by CBC labs in clinic every 1 to 3 months documented as of this encounter Visit Diagnoses Not on filedocumented in this encounter Care Teams Industrial Economics Professor Relationship Specialty Start Date End Date Irving Wheeler MD PCP - General 06/23/19 [address] [place] [address] documented as of this encounter
--- OUTSIDE RECORDS SUMMARY | 2022-02-01 00:27 | XMS_ITS | Encounter Summary ---
:1960 [place] [address] Care Team Providers Name Role Phone Ivring Wheeler MD Primary Care Provider [phone] Encounter Details Date Type Department Care Team Description 02/16/2020 Telephone [facility] [place] [address] Social History Tobacco Use Types Packs/Day [...] this encounter Miscellaneous Notes Telephone Encounter - Ericka Tee Kulwinder - 02/18/2020 12:43 PM EDT 1. ASK: TRAVEL ???Have you travelled outside of [place] ([place], [place], [place], [place], [place], [place]) in the past 14 days??? 2. ASK: EXPOSURE Have you been in contact with anyone suspected or confirmed to have COVID-19 in the past 14 days??? 3. ASK: SYMPTOMS Do you have any new or worsening symptoms on this list that are not related to another medical condition? Fever or chills ?? Cough ?? Shortness of breath or difficulty breathing ?? Fatigue ?? Muscle or body aches ?? Headache ?? Loss of taste or smell ?? Sore throat ?? Congestion or runny nose ?? Nausea or vomiting ?? Diarrhea If 'Yes' to any of the questions above Transfer patient to the Covid-19 Hotline Number ([phone]) for further instructions. If 'No' to all of the questions above Is this the first test for Covid 19 , [facility] 3wks ago neg If no, please list date of previous test, result, and type of test (Molecular, Antigen, Antibody or unknown): Resides in congregate care setting No Employee or Household Member of Employee No Healthcare Worker No Schedule appointment: Give directions to testing facility. Please advise patient that all passengersin the vehicle must wear a mask and to please either leave their dogs at home or have them crated/behind a net. Telephone call placed/received to schedule Covid 19 testing with patient. Ordering provider: Dr Galdamez Testing Facility: [facility] Date of Testin/11 Time of Testin:00am Symptoms: no Telephone Encounter - Yanira Campos - 02/18/2020 12:20 PM EDT Called back to schedule COVID Test Telephone Encounter - Anaid Patel - 02/16/2020 11:52 AM EDT LMS to schedule pre-op COVID test documented in this encounter Plan of Treatment Upcoming Encounters Date Type Specialty Care Team Description 02/15/2022 Office Visit Hematology and Oncology Morris Dozier MD [facility] [address] [place], [place] [address] (Wo rk) documented as of [...] on filedocumented in this encounter Care Teams Acid Bleacher Relationship Specialty Start Date End Date Irving Wheeler MD PCP - General 06/23/[address] [place] [id number] documented as of this encounter
--- OUTSIDE RECORDS SUMMARY | 2022-02-01 00:28 | XMS_ITS | Encounter Summary ---
:1960 Author Organization [facility] [place] [address] Care Team Providers Name Role Phone Irving Wheeler MD Primary Care Provider [phone] Reason for Visit Reason Comments Medication Management Medication Refill Patient Education Encounter Details Date Type Department Care Team Description 01/24/2020 Specialty Pharm[place] [facility] Grewal [facility] Medication Refill; [place], [place] [phone] Social History [...] of this encounter Progress Notes Brandt Grewal RPH - 01/24/2020 4:30 PM EDT Specialty Pharmacy Consultation; Brandt Grewal [facility]ication Management (CMM) Mary Kay Manciay Diagnosis: GIST Therapy Start Date: 01/01/20 Contact in person or via telephone:Telephone Ms. Mary Kay Gonzalez is a 59 y.o. (1960) female who was called today. I spoke with the patient regarding their specialty medication imatinib and a review of the drug therapy was performed. The medication was filled as scheduled, and all related questions and concerns were addressed. The specialty pharmacy staff will follow up with the patient 5-7 days prior to next refill. Is the patient willing to proceed with the Clinical Assessment? Yes Summary and Recommendations: Mary Kay was contacted for medication renewal and clinical follow-up for imatinib for treatment of GIST. The patient reports continuing to take imatinib 400 mg by mouth once daily with food. Side effectsof medications were reviewed including the risk of infections, edema, nausea/vomiting, diarrhea, abdominal cramping, rash, and joint/muscle pain. Mary Kay reports tolerating imatinib well and denies infections, edema, nausea/abdominal cramping/diarrhea. She reports some muscle cramping and asks if she can take magnesium carbonate which I told the patient is fine. I also recommended 1200 mg of calcium carbonate per day. The patient was instructed to report any serious or bothersome side-effects to her provider. The patient's medication, allergy, and problem list were reviewed with the patient and magnesium carbonate was added to medication list. I reviewed the patient's medication profile and no interactions were found. The patient was instructed to contact the Specialty Pharmacy or clinic prior to starting any new medications including OTC and herbal products. The importance of adherence to treatment and strategies to improve compliance including pill organizers, alarms, and development of a specific routine were discussed. The safe handling of the medication including the the use of disposable gloves and hand washing was emphasized. The patient was also instructed to store the medication in a c ool dry place, out of the reach of children or pets. The services provided by the Specialty Pharmacy, including hours of operation, 24 hr on-call pharmacist services, refill reminders, and follow-up calls were reviewed with the patient. The medication will be filled for $0.00 copay and will be mailed on 01/26/20. The importance of clinical follow-up and routine laboratory assessments while on treatment was discussed with the patient. The patient was encouraged to contact the Specialty Pharmacy with any questions or concerns. Clinic follow-up needed: yes - patient to follow-up with Dr. Dozier on 01/26/20 Allergies and Drug intolerance: No Known Allergies Problem List: Patient Active Problem List Diagnosis Code ??? 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 Anemia D64.9 ??? Disorder of thyroid gland E07.9 ??? Arthritis M19.90 ??? Tinnitus H93.19 ??? Vitamin D deficiency E55.9 ??? Osteoarthrosis M19.90 Special Dietary or Hydration Requirements: yes - patient has been taking imatinib with food. Patientwas instructed to avoid grapefruit, pomegranates, [place] oranges, and starfruit. There is no height or weight on file to calculate BMI. Medication reconciliation discrepancies (compared to [facility] med list): yes - patient will start magnesium carbonate Medication Adherence Adherence tools used: directed education Support network for adherence: family member, healthcare provider Medication List: Current Outpatient Medications Medication Sig Dispense Refill ??? imatinib (GLEEVEC) chemo tablet Take 400 mg by mouth daily. Take with food and a large glass of water to decrease stomach irritation. Call clinic before starting medication. 30 Doses of treatment to dispense 5 ??? omeprazole (PriLOSEC) 40 mg Capsule, Delayed Release(E.C.) 40 mg Daily. ??? iron,carb/vit C/vit B12/folic (IRON 100 PLUS ORAL) 50 mg. ??? cholecalciferol, Vitamin D3, 50 mcg (2,000 unit) Capsule Take 2,000 Units by mouth. No current facility-administered medications for this visit. Most Recent Vitals: Ht Readings from Last 1 Encounters: 12/14/19 162.5 cm (5' 3.98) Wt Readings from Last 3 Encounters: 12/14/19 52.2 kg (115 lb) 12/07/19 53.5 kg (118 lb) 12/06/19 53.5 kg (118 lb) Temp Readings from Last 3 Encounters: 12/14/19 36.5 ??C (97.7 ??F) (Temporal) 12/07/19 36.3 ??C (97.4 ??F) 11/25/19 37.5 ??C (99.5 ??F) (Oral) BP Readings from Last 3 Encounters: 12/14/19 111/56 12/07/19 124/62 11/25/19 96/58 Pulse Readings from Last 3 Encounters: 12/14/19 74 12/07/19 69 11/25/19 79 Pertinent Lab values: Lab Results Component Value Date NA 142 12/14/2019 K 3.7 12/14/2019 CL 105 12/14/2019 CO2 26 12/14/2019 BUN 16 12/14/2019 CREATININE 0.59 (L) 12/14/2019 GLUCOSE 95 12/14/2019 CALCIUM 9.3 12/14/2019 Lab Results Component Value Date ALT 14 12/14/2019 AST 14 12/14/2019 ALKPHOS 49 12/14/2019 BILITOT 0.2 12/14/2019 ALBUMIN 4.5 12/14/2019 PROT 6.5 12/14/2019 Lab Results Component Value Date WBC 4.8 12/14/2019 HGB 10.4 (L) 12/14/2019 HCT 34.3 (L) 12/14/2019 MCV 87.9 12/14/2019 PLATELET 363 (H) 12/14/2019 No results found for: HA1C There is no immunization history on file for this patient. Assessment and Recommendations: Title Cognitive Ability: good Cognitive Impairment Status Verified this Year: no Drug Treatment Outcomes 12/30/2019 1028 Disease progression: Stable Patient Overall Status: Stable [...] use oldest product first Relevant lab data Patient verbalizes understanding and is able to read-back instructions on self-administration/injection, proper storage, drug stability, importance of adherence and management strategies, side effect avoidance and mitigation strategies, and interruptions in therapy: Yes Relevant monitoring results reviewed for bone marrow suppression, opportunistic infection, tumor lysis syndrome, metabolic disturbance and end organ dysfunction yes - reviewed most recent labs from 12/14/19 Physical and Cognitive Assessment: Functional limitations identified: no Cognitive limitations identified: no Concern regarding orientation/memory: no Concern with reasoning/judgement: no Is patient a fall risk: no Other needed information: no Social Assessment: Does the patient have a primary respiratory care instructor? no Does the patient have an emergency contact on file: Yes Does patient need referral to psychosocial rehabilitation counselor: No Does patient need referral to advocacy group: No Home Health Assessment: Is the patient in a safe home environment? Yes Is the patient able to store their medication as directed? Yes Does the patient have a support network at home? Yes Reviewed potential home safety hazards with patient: No Economic Assessment: Patient is agreeable to medication copay: yes Copay Amount: $0.00 Day Supply: 30 days Date Needed: 01/31/20 Copay assistance required: no Therapy Assessment: Current Medication Dosing/Route/Frequency: Imatinib 400 mg by mouth once daily with food. Appropriate Therapy: Yes Effective: Surgery after adjuvant therapy Patient-Reported Side Effects: yes - muscle cramping Patient assessed for pertinent side effects such as arthralgia, neuropathy, vision changes, cough, rash, hand/foot syndrome, hot flashes, nausea, and diarrhea or constipation. Adjunct medication needed? no Is the patient experiencing pain? Not assessed Patient Goals: Hematology/Oncology related goals may include remission, palliative or hospice care, a bridge to future surgery, transplant, and radiation or infusion therapy. Patient's specific desired goal: Completion of neoadjuvant treatment with reduction of tumor size making tumor resectable Measured by: Reduction in tumor size after completion of neoadjuvant therapy Time-frame to meet goal: After completion of neoadjuvant therapy Is the patient on track to achieve goals of therapy? Yes If no, what are the barriers and action plan to reach the goal: n/a Care Plan and Interventions: Care Plan Reviewed and Approved by both Pharmacist and Patient: Yes Did Care Plan Change? No Interventions (if applicable): No Patient experienced change in condition that affects treatment: no Additional care/services needed: no Educational information or adherence tools provided: Yes Additional equipment/supplies required: no Pharmacist follow-up needed: Yes Patient Satisfaction with Care/Services Provided: Yes Informed patient of specialty pharmacy services: Yes -Patient received welcome packet: Yes Date Received: 12/30/19 Delivery Method: Mail -Patient returned signed Rights & Responsibilities: Yes Date Received: 12/30/19 Delivery Method: Mail -Patient is aware a licensed pharmacist is available 24 hours a day, 7 days a week to discuss medication-related questions or concerns: Yes -Patient verbalizes understanding of education on the common side effect profile of the medication: Yes -The patient is able to call 911 or seek urgent care if signs/symptoms of allergy or harmful adversereactions occur: Yes Patient Satisfaction with Therapy: no Patient understands any changes to current drug regimen were made at the appointment and [facility]summary located at top of note) for provider review and follow up. Brandt Grewal RPH 01/24/20 4:30 PM documented in this encounter Plan of Treatment Upcoming Encounters Date Type Specialty Care Team Description 02/15/2022 Office Visit Hematology and Oncology Morris Dozier MD [facility]OG[facility] [place], [place] [address] (Wo rk) documented as of [...] in this encounter Care Teams Mechanical Engineering Teacher Relationship Specialty Start Date End Date Irving Wheeler MD PCP - General 06/23/[address] [place] [phone] documented as of this encounter
--- OUTSIDE RECORDS SUMMARY | 2022-02-01 00:28 | XMS_ITS | Encounter Summary ---
:1960 Author Organization [facility] [place] [address] Care Team Providers Name Role Phone Irving Wheeler MD Primary Care Provider [phone] Reason for Referral Diagnostic Test (Routine) - Closed Specialty Diagnoses / Procedures Referred By Contact Refer red To Contact Radiology Diagnoses Malignant gastrointestinal stromal tumor, unspecified site Morris Dozier MD [facility] Rad Nuclear Med Procedures NM PET CT Skull Base to Mid-thigh [facility] [place] [address] [place] [address] Fax: Referral ID Status Reason Start Date Expiration Date Visits V isits Requested Authorized [id number] Closed Specialty 12/20/2019 04/18/2020 1 1 Service Requested Encounter Details Date Type Department Care Team Description 12/17/2019 Orders Only Hematology and Morris Dozier Malignant Oncology at [facility] MD Angel gastrointestinal stromal [facility] tumor, un specified site [facility] [address] [place] [address] [place] [address] [phone] Social History Tobacco Use Types Packs/Day Years [...] and Oncology Morris Dozier MD [facility] [address] ON[facility]OGY [place] [id number] (Wo rk) documented as of this encounter Results NM PET CT Skull Base to Mid-thigh (12/29/2019 12:32 PM EDT) Anatomical Region Laterality Modality Positron Emission To mography (PET) Specimen (Source) Anatomical Location Collection Method / Collectio n Time Received Time / Laterality Volume Impressions 12/29/2019 3:34 PM EDT 1. ??Unchanged size of a large heterogeneously FDG avid, centrally necrotic mass extending inferiorly from the korin hepa tus, consistent with biopsy-proven GI stromal tumor. 2. ??No alexis metastasis. 3. ??No distant metastasis. Preliminary report signed by: Nadir wang at 12/29/2019 3:31 PM I have personally reviewed the image(s) and the resident's interpretation and agree with the findings, Trey Ray at 12/29/2019 3:34 PM Thank you for letting us participate in the care of this patient. For questions regarding this report, please contact e number below. ? Narrative 12/29/2019 3:34 PM EDT EXAMINATION: NM PET CT SKULL BASE TO MID-THIGH ? CLINICAL HISTORY: Gastrointestinal cance r, staging GIST, locally advanced, staging TECHNIQUE: Following IV injection of 18- jebuiy-5-zmbcemkgzcpa (FDG) a standard uptake of approximately 60 minutes, a no ncontrast CT scan followed by a PET scan were acquired from the base of the skull to mid thighs. The noncontrast CT was used for anatomic localization and photo n attenuation correction of the PET scan. Blood glucose level: 99 (mg/dL) FDG dose: 8.6 mCi COMPARISON: CT dated 11/22/2019. FINDINGS: HEAD/NECK: Focal FDG uptake in the right posterolat eral paraspinal musculature that is nonspecific but favored to represent mus delilah strain. No adenopathy. CHEST: Normal activity in all soft tissue regio ns. No adenopathy. Non-FDG avid 4 mm pleural nodule in the periphery of the right lower lobe is unchanged as compared with 11/22/2019 (ax ial image 101). This most likely represents an intrapulmonary lymph node. ABDOMEN/PELVIS: Unchanged size of a large heterogeneousl y FDG avid, centrally necrotic mass extending inferiorly from the korin hepa tis (axial image 140). No adenopathy. Nonobstructive tiny calculi in the infer ior pole the right kidney. SKELETON/EXTREMITIES: Normal activity in all regions of the ax ial and visualized appendicular skeleton. Procedure Note Trey Ray MD - 12/29/2019 EXAMINATION: NM PET CT SKULL BASE TO MID -THIGH CLINICAL HISTORY: Gastrointestinal cance r, staging GIST, locally advanced, staging TECHNIQUE: Following IV injection of 18- rklkhk-3-qhtuvkbglyun (FDG) a standard uptake of approximately 60 minutes, a no ncontrast CT scan followed by a PET scan were acquired from the base of the skull to mid thighs. The noncontrast CT was used for anatomic localization and photo n attenuation correction of the PET scan. Blood glucose level: 99 (mg/dL) FDG dose: 8.6 mCi COMPARISON: CT dated 11/22/2019. FINDINGS: HEAD/NECK: Focal FDG uptake in the right posterolat eral paraspinal musculature that is nonspecific but favored to represent mus delilah strain. No adenopathy. CHEST: Normal activity in all soft tissue regio ns. No adenopathy. Non-FDG avid 4 mm pleural nodule in the periphery of the right lower lobe is unchanged as compared with 11/22/2019 (ax ial image 101). This most likely represents an intrapulmonary lymph node. ABDOMEN/PELVIS: Unchanged size of a large heterogeneousl y FDG avid, centrally necrotic mass extending inferiorly from the korin hepa tis (axial image 140). No adenopathy. Nonobstructive tiny calculi in the infer ior pole the right kidney. SKELETON/EXTREMITIES: Normal activity in all regions of the ax ial and visualized appendicular skeleton. IMPRESSION 1. Unchanged size of a large heterogeneo usly FDG avid, centrally necrotic mass extending inferiorly from the korin hepa tus, consistent with biopsy-proven GI stromal tumor. 2. No alexis metastasis. 3. No distant metastasis. Preliminary report signed by: Nadir wang at 12/29/2019 3:31 PM I have personally reviewed the image(s) and the resident's interpretation and agree with the findings, Trey Ray at 12/29/2019 3:34 PM Thank you for letting us participate in the care of this patient. For questions regarding this report, please contact th e number below. Morris Dozier MD IMG PET ORDERABLES documented in this encounter Visit Diagnoses Diagnosis Malignant gastrointestinal stromal tumor , unspecified site Malignant gastrointestinal stromal tumor , unspecified site documented in this encounter Care Teams Underground Roof Bolter Relationship Specialty Start Date End Date Irving Wheeler MD PCP - General 06/23/19 [address] [place] [address] documented as of this encounter
--- OUTSIDE RECORDS SUMMARY | 2022-02-01 00:28 | XMS_ITS | Encounter Summary ---
:1960 Author Organization [place] [address] Care Team Providers Name Role Phone Irving Wheeler MD Primary Care Provider [phone] Reason for Visit Diagnostic Test (Routine) - Canceled Specialty Diagnoses / Procedures Referred By Contact Refer red To Contact Radiology Diagnoses Malignant gastrointestinal stromal tumor, unspecified site Ac Steel, DO [facility] Rad Nuclear Med Procedures NM PET CT Skull Base to Mid-thigh [facility] HEMATOLOGY/[place] [address] [place] [address] Fax: Referral ID Status Reason Start Expiration Visits Visits Date Date Requested Authorized [id number] Canceled Specialty 12/29/2019 06/30/2021 1 0 Service Requested Encounter Details Date Type Department Care Team Description 01/25/2020 [facility] NOT [facility] MEDICAL AUTHORIZE D) [facility] [address] [place] [address] [place], [place] [phone] Social History Tobacco Use Types Packs/Day Years [...] Refills Start Date End Date sucralfate (Carafate) Every 6 hours. 0 07/28/2019 1 gram Tablet esomeprazole (NexIUM) Every 12 hours. 0 0 40 mg Capsule, Delayed Release(E.C.) cholecalciferol, Take 4,000 Units 0 Vitamin D3, 50 mcg by mouth daily. (2,000 unit) Capsule MAGNESIUM CARBONATE Take 325 mg by 0 1 ORAL mouth daily. imatinib (GLEEVEC) Take 400 mg by 30 Doses of 5 12/14/2019 0 02/04/2020 chemo mouth daily. Take treatment to tabletIndications: with food and a dispense Malignant GIST large glass of (gastrointestinal water to decrease stromal tumor) of stomach small intestine irritation. Call clinic before starting medication. omeprazole (PriLOSEC) Take 40 mg by 0 03/29/2020 40 mg Capsule, mouth Daily. Delayed Release(E.C.) documented as of this encounter Plan of Treatment Upcoming Encounters Date Type Specialty Care Team Description 02/15/2022 Office Visit Hematology and Oncology Morris Dozier MD [facility] [place], [place] [address] (Wo rk) documented as of [...] on filedocumented in this encounter Care Teams Abstract Maker Relationship Specialty Start Date End Date Irving Wheeler MD PCP - General 06/23/19 [address] [place] [address] documented as of this encounter
--- OUTSIDE RECORDS SUMMARY | 2022-02-01 00:28 | XMS_ITS | Encounter Summary ---
:1960 Author Organization [facility] [place] [address] Care Team Providers Name Role Phone Irving Wheeler MD Primary Care Provider [phone] Reason for Visit Reason Comments Follow-up Encounter Details Date Type Department Care Team Description 12/29/2019 TH Visit Hematology and Morris Dozier MD [facility] [place] [address] Malignant (TeleHealth) Oncology at [place] Ac Steel DO [facility] HEMATOLOG[place] [address] [facility] tumor, [place] [address] Social History Tobacco Use Types Packs/Day Years [...] documented as of this encounter Progress Notes SteelAra greymandi, - 12/29/2019 4:30 PM EDT Subjective: Patient ID: Jen Farmer [...] examination of resection specimen. Molecular studies - pending C. Discussed at GI Tumor Board on 12/07/19. The recommendation was for molecular studies. Depending on findings, consider pre-operative imatinib. Recommend baseline PET scan and short term f/u PET scan toestablish activity. PET scan 12/21/19: 1. Unchanged size of a large heterogeneously FDG avid, centrally necrotic mass extending inferiorly from the korin hepatus, consistent with biopsy-proven GI stromal tumor. 2. No alexis metastasis. 3. No distant metastasis. D. 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 Today is a telephone visit with Jen. She reports that she feels well except for some bloating. She otherwise has no complaints. Her energy level is ok and she is without any other complaints. She denies any headache, dizziness, weight gain or loss, headache, chest pain, shortness of breath, abdominal pain, nausea, vomiting, diarrhea, constipation, or black or bloody stools. Soc Hx:Divorces, lives in [place], [place] Tob - Quit in mid Etoh - none recently. 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 Fam Hx: Father - at [...] Neurological: Negative. Hematological: Negative. Psychiatric/Behavioral: Negative. Objective: There was no physical exam done during today's phone visit. Results for JEN FARMER ( ) as of 12/29/2019 17:22 Ref. Range 12/14/2019 15:18 12/29/2019 11:11 12/29/2019 12:32 WBC Latest Ref Range: 4.0 - 9.5 x10(3)/mcL 4.8 RBC Latest Ref Range: 4.00 - 5.21 x10(6)/mcL 3.90 (L) Hemoglobin Latest Ref Range: 11.7 - 15.5 gm/dL 10.4 (L) Hematocrit Latest Ref Range: 35.7 - 45.8 % 34.3 (L) MCV Latest Ref Range: 82.6 - 94.4 fL 87.9 MCH Latest Ref Range: 27.1 - 32.0 pg 26.7 (L) MCHC Latest Ref Range: 31.7 - 35.0 gm/dL 30.3 (L) RDWSD Latest Ref Range: 37.0 - 46.0 fL 45.6 RDWCV Latest Ref Range: 11.5 - 14.1 % 14.2 (H) Platelets Latest Ref Range: 145 - 357 x10(3)/mcL 363 (H) MPV Latest Ref Range: 7.6 - 12.9 fL 9.4 nRBC % Auto Latest Units: % 0.0 nRBC Abs Auto Latest Ref Range: 0.000 - 0.000 x10(3)/mcL 0.000 Neutr Abs (ANC) Latest Ref Range: 1.70 - 6.10 x10(3)/mcL 2.67 Neutrophils % Latest Units: % 55.8 Immature Gran % Latest Units: % 0.20 Lymphocytes % Latest Units: % 34.2 Monocytes % Latest Units: % 9.2 Eosinophils % Latest Units: % 0.2 Basophils % Latest Units: % 0.4 Teresa Gran Abs Latest Ref Range: 0.00 - 0.04 x10(3)/mcL 0.01 Lymphocytes Abs Latest Ref Range: 0.9 - 3.2 x10(3)/mcL 1.6 Monocyte Abs Latest Ref Range: 0.3 - 0.9 x10(3)/mcL 0.4 Eosinophils Abs Latest Ref Range: 0.0 - 0.4 x10(3)/mcL 0.0 Basophils Abs Latest Ref Range: 0.0 - 0.1 x10(3)/mcL 0.0 Sodium Latest Ref Range: 135 - 145 mmol/L 142 Potassium Latest Ref Range: 3.5 - 5.0 mmol/L 3.7 Chloride Latest Ref Range: 98 - 107 mmol/L 105 CO2 Latest Ref Range: 22 - 31 mmol/L 26 Anion Gap Latest Ref Range: 5 - 15 mmol/L 11 BUN Latest Ref Range: 8 - 18 mg/dL 16 Creatinine Latest Ref Range: 0.70 - 1.20 mg/dL 0.59 (L) eGFR Latest Ref Range: >=60 mL/min/1.73 m?? 102 eGFR Latest Ref Range: >=60 mL/min/1.73 m?? 118 Calcium Latest Ref Range: 8.5 - 10.5 mg/dL 9.3 Glucose Lvl Latest Ref Range: 65 - 199 mg/dL 95 POC Glucose Latest Ref Range: 65 - 199 mg/dL 99 Total Protein Latest Ref Range: 6.1 - 8.0 gm/dL 6.5 Albumin Latest Ref Range: 3.2 - 5.2 gm/dL 4.5 Total Bilirubin Latest Ref Range: 0.2 - 1.3 mg/dL 0.2 Alk Phos Latest Ref Range: 35 - 105 unit/L 49 AST Latest Ref Range: 0 - 30 unit/L 14 ALT Latest Ref Range: 0 - 30 unit/L 14 Iron Latest Ref Range: 30 - 150 mcg/dL 20 (L) TIBC Latest Ref Range: 250 - 450 mcg/dL 338 Assessment and Plan: Ms. Farmer is a [...] from this is consistent with a GIST. Her case was discussed at GI Tumor Board on 12/07/19 and she also met with Dr. Galdamez. Because of the size and location of the tumor, the recommendation was for consideration of neoadjuvant imatinib. Molecular analysis showed KIT p.[id number] del, exon 11 which confers sensitivity to imatinib. The speciality pharmacy was called today regarding the prior auth for imatinib. We discussed the results of the PET done on 12/21/19 (results above) will serve as a baseline exam. She is awaiting the imatinib to be mailed to her and will start therapy then. We will follow up with another PET 2 weeks after starting therapy to monitor for response (pending insurance approval). We also discussed her anemia. She has been taking [id number] iron supplementation every other day. We recommended that she takes it every day. Jen Farmer is aware to call with any questions. Ac Steel, DO Fellow, Hematology and Medical Oncology Pager: [phone] Patient was seen and discussed with Dr. Dozier. This was a telephone encounter including Ms. Farmer, Dr. Steel and myself. I agree with history and plan as noted above. PET scan result reviewed with patient. We will arrange for imatinib to be sent to her and started. We will plan to see her in two weeks with a repeat PET scan to attempt to document early response as we do not want to lose a potential window for resection of disease. documented in this encounter Plan of Treatment Upcoming Encounters Date Type Specialty Care Team Description 02/15/2022 Office Visit Hematology and Oncology Morris Dozier MD [facility] ER DR ONCOLOGY [place], [place] [address] (Wo rk) documented as of this encounter Results (ABNORMAL) Comprehensive metabolic panel (non-fasting) (01/26/2020 1:33 PM EDT) P athologist Signature Glucose Lvl 90 65 - 199 [facility] mg/dL [facility] Comment: Diabetes: >=200 mg/dL plus symp toms BUN 14 8 - 18 mg/dL [facility] Creatinine 0.66 (L) 0.70 - 1.20 mg/dL [facility] Sodium 142 135 - 145 mmol/L [facility] Potassium 3.7 3.5 - 5.0 mmol/L [facility] Comment: Please note: ??Patients with WBC >100,00 0 may have falsely elevated Potassium levels. ??For accurate Potassium quantif ication in these patients send serum separator tube (gold top) for subsequent determinations. ??Contact the Clinical Chemistry Laboratory if there are any qu estions. Chloride 106 98 - 107 mmol/L [facility] CO2 27 22 - 31 mmol/L [facility] Anion Gap 9 5 - 15 mmol/L [facility] Calcium 9.4 8.5 - 10.5 mg/dL [facility] Total Protein 6.4 6.1 - 8.0 gm/dL [facility] Albumin 4.2 3.2 - 5.2 gm/dL [facility] AST 22 0 - 30 unit/L [facility] ALT 21 0 - 30 unit/L [facility] Alk Phos 54 35 - 105 unit/L [facility] Total Bilirubin <0.2 (L) 0.2 - 1.3 mg/dL [facility] Estimated GFR 98 >=60 mL/min/1.73 m?? [facility] Comment: The eGFR was calculated using the CKD-EP I equation. As with all creatinine based estimates of kidney function, eGFR values calculated with the CKD-EPI equation are not accurate in patients wi th acute kidney failure, extremes of body mass or the acutely ill. [email or web address] eGFR 114 >=60 mL/min/1.73 m?? [facility] Comment: The eGFR was calculated using the CKD-EP I equation. As with all creatinine based estimates of kidney function, eGFR values calculated with the CKD-EPI equation are not accurate in patients wi th acute kidney failure, extremes of body mass or the acutely ill. [email or web address] Specimen Anatomical Collection Method Collection Time Receive d Time (Source) Location / / Volume Laterality Blood specimen 01/26/2020 1:33 PM 020 2:11 (specimen) EDT PM EDT Resulting Agency Comment Spec In Lab Morris Dozier MD CHEMISTRY ORDERABLES Performing Organization Address City/State/ZIP [place] [address] documented in this encounter Visit Diagnoses Diagnosis Malignant gastrointestinal stromal tumor , unspecified site documented in this encounter Care Teams Compliance Monitor Relationship Specialty Start Date End Date Irving Wheeler MD PCP - General 06/23/19 [address] [place] [address] documented as of this encounter
--- OUTSIDE RECORDS SUMMARY | 2022-02-01 00:28 | XMS_ITS | Encounter Summary ---
:1960 Author Organization [facility] [place] [address] Care Team Providers Name Role Phone Irving Wheeler MD Primary Care Provider [phone] Reason for Visit Diagnostic Test (Routine) - Closed Specialty Diagnoses / Procedures Referred By Contact Refer red To Contact Radiology Diagnoses Malignant gastrointestinal stromal tumor, unspecified site Morris Dozier MD [facility] Rad Nuclear Med Procedures NM PET CT Skull Base to Mid-thigh [facility] [place] [address] [place] [address] Fax: Referral ID Status Reason Start Date Expiration Date Visits V isits Requested Authorized [id number] Closed Specialty 12/20/2019 04/18/2020 1 1 Service Requested Encounter Details Date Type Department Care Team Description 12/29/2019 Hospital Encounter Nuclear Medicine at [place] Galdamez Mary Hitchcock MD [facility] ENTER [facility] [place] [address] [place] [address] [phone] (Wo rk) Social History Tobacco Use Types [...] mcg by mouth daily. (2,000 unit) Capsule imatinib (GLEEVEC) Take 400 mg by 30 Doses of 5 12/14/2019 0 02/04/2020 chemo mouth daily. Take treatment to tabletIndications: with food and a dispense Malignant GIST large glass of (gastrointestinal water to decrease stromal tumor) of stomach small intestine irritation. Call clinic before starting medication. omeprazole (PriLOSEC) Take 40 mg by 0 03/29/2020 40 mg Capsule, mouth Daily. Delayed Release(E.C.) iron,carb/vit C/vit 50 mg. 0 01/23 B12/folic (IRON 100 PLUS ORAL) documented as of this encounter Plan of Treatment Upcoming Encounters Date Type Specialty Care Team Description 02/15/2022 Office Visit Hematology and Oncology Morris Dozier MD [facility] ER ONCOLOGY [place], [place] [address] (Wo rk) documented as of this encounter Procedures Procedure Name Priority Date/Time Associated Diagnosis Comme nts NM PET CT SKULL Routine 12/29/2019 12:32 Malignant Results for this BASE TO MID-THIGH PM EDT gastrointestinal stroma l procedure are in ([facility]) tumor, unspecified site the results section. POCT GLUCOSE Routine 12/29/2019 11:11 Results for this AM EDT procedure are i n the results section. documented in this encounter Results POCT Glucose (12/29/2019 11:11 AM EDT) P athologist Signature POC Glucose 99 65 - 199 [facility] mg/dL [facility] Comment: Supplemental ranges: <140 mg/dL before meals <180 mg/dL all other times of the day Specimen Anatomical Collection Method Collection Time Receive d Time (Source) Location / / Volume Laterality Blood specimen 12/29/2019 11:11 0 (specimen) AM EDT 11:11 AM EDT Emely Galdamez MD POINT OF CARE TEST ORDERABLE S Performing Organization Address City/State/[place] [address] documented in this encounter Visit Diagnoses Not on filedocumented in this encounter Care Teams Rack Puncher Relationship Specialty Start Date End Date Irving Wheeler MD PCP - General 06/23/[address] [place] [id number] documented as of this encounter
--- OUTSIDE RECORDS SUMMARY | 2022-02-01 00:28 | XMS_ITS | Encounter Summary ---
:1960 Author Organization [employer] [place] [address] Care Team Providers Name Role Phone Irving Wheeler MD Primary Care Provider [phone] Reason for Visit Reason Comments Cough Fever Auth/Cert Specialty Diagnoses / Procedures Referred By Contact Refer red To Contact Diagnoses Neutropenic fever Procedures EMERGENCY IPI Referral ID Status Reason Start Date Expiration Date Visits Requ ested Visits Authorized [id number] 1 1 Encounter Details Date Type Department Care Team Description 02/01/2020 - Hospital Encounter 1 Ray Travis Dukes MD [facility] [place] [address] Neutropenic fever (Primary Dx); 02/04/2020 [facility] [place] [address] Anemia, unspecified type [facility] [place] [address] [place] [id number] Social History Tobacco Use Types Packs/Day Years [...] Sign Reading Time Taken Comments Blood Pressure 120/65 02/04/2020 4:33 PM EDT Pulse 86 02/01/2020 8:47 PM EDT Temperature 36.9 ??C (98.4 ??F) 02/04/2020 4:33 PM EDT Respiratory Rate 16 02/04/2020 4:33 PM EDT Oxygen Saturation 100% 02/04/2020 4:33 PM EDT Inhaled Oxygen Concentration - - Weight 52.9 kg (116 lb 10 oz) 02/01/2020 10:18 PM EDT Height 159 cm (5' 2.6) 02/01/2020 10:18 PM EDT Body Mass Index 20.93 02/01/2020 10:18 PM EDT documented in this encounter Discharge Summaries Kyler Hurley MD - 02/02/2020 6:51 AM EDT Discharge Summary Patient Name Mary Kay Gonzalez Age 59 y.o. Date of 1960 Admission Date 02/01/2020 Discharge Date 02/04/2020 Attending Physician at Discharge Kyler Hurley MD Follow-up recommendations to providers: ?? Follow up with Dr. Galdamez for surgical management of GIST ?? Follow up with Dr. Dozier for management of GIST and recent febrile neutropenia Discharge Diagnoses (Hospital Problems) and Secondary Diagnoses (Chronic Problems): Active Hospital Problems No active problems to display. Resolved Hospital Problems Diagnosis Date Resolved ??? Neutropenic fever 02/04/2020 Active Non-Hospital Problems Diagnosis ??? Anemia ??? Disorder of thyroid gland ??? Arthritis ??? Tinnitus ??? Vitamin D deficiency ??? Osteoarthrosis ??? 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 Dozier # Surgical Oncology - Dr. Galdamez # GI - Dr. Mclaughlin History of Presentation: (Per admission H&P) ?? 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 ?? The patient's history of present illness goes back about 6 days ago when first started to feel unwell. Symptoms improved until 3 days prior to admission when progressed to include dry cough and myalgia. A fever of 101.2 was reported. ?? The patient went to see her primary care physician 1 day prior to admission who performed a COVIDand Flu test. Temperature at that time was 101.2F. The PCP and her oncologist noted a low WBC (3.8, ANC 80) and referred her to the ED. ?? Her temperature last night as 103F, took Tylenol 1000 mg around 4 pm. Recent exposure include sonwith cold last week. No recent procedures. ?? ROS negative for n/v, CP, abdominal pain, back pain, urinary symptoms, hematuria, bloody stools, diarrhea, constipation, new sores or wounds, or sore throat. +chronic SOB. ?? Work-up in the emergency room included chest x-ray and a UA that was negative. ?? The patient also had a COVID test that was negative yesterday. ?? The ED physician discussed the case with oncology. She was started on cefepime for broad-spectrumantibiotics. Blood cultures were also obtained. Hospital Course: Mary Kay Gonzalez was admitted to the [facility] medicine service on 02/01/2020 and discharged on 02/04/2020 The following issues were addressed during this admission: # Neutropenic Fevers Ms. Gonzalez initially presented with an ANC of 8.4 and fevers to 38.1. She was started on IV Cefepime on 01/31 and placed on neutropenia precautions. Her imatinib had not been taken since 01/30 and was held during the course of her hospitalization A comprehensive workup was performed for identifying a source of infection, including blood and urine cultures, a chest x-ray, COVID and flu test, viral respiratory panel, and liver function tests. A CT scan was performed showing interval change in necrosis of her tumor. At that time, oncology, surgical oncology, and GI were consulted. Surgical oncology didnot feel like surgery at the moment was appropriate. After discussions with her consulting teams, she was switched to IV Zosyn and continued to be monitored closely. She was also started on valacyclovir for an oral herpes lesion. On hospital day 1 she defervesced to 37.7C but the following night experienced fevers again. Since HD 2 onwards she has been afebrile. A CBC was collected daily and ANC counts followed. At the time of discharge her ANC was 500. During her hospitalization, Ms. Gonzalez continued to feel well without symptoms. She was discharged on oral Ciprofloxacin and Metronidazole with plans to follow up with surgical oncology the following week. A repeat CBC was ordered for early the following week. Primary Team Inpatient Physicians at [facility] was: Attending Physician(s): Kyler Hurley MD Inpatient Provider Contact Information: If you have questions about this document please contact the [facility] draw frame operator at and ask for one of the providers above. If these providers are unavailable your call will be answered by an on- call hospital physician. Important Lab Data: Recent Labs 02/04/20 0824 02/04/20 0348 02/03/20 0458 WBC 3.2* Disregard 2.4* HGB 10.2* Disregard 10.3* PLATELET 219 Disregard 184 Recent Labs 02/04/20 0348 02/03/20 1502 02/03/20 0458 NA 140 142 139 K 3.9 3.5 2.9* CO2 26 29 27 CL 106 104 102 BUN 6* 5* 6* CREATININE 0.41* 0.45* 0.42* CALCIUM 8.6 9.1 8.3* ANIONGAP 8 9 10 Recent Labs 02/03/20 0458 02/01/20 1625 PROT 5.8* 6.4 ALBUMIN 3.4 3.9 BILITOT 0.3 0.5 BILIDIR 0.1 0.2 AST 25 22 ALT 23 21 ALKPHOS 53 57 No results for input(s): TROPONINT, CK in the last 168 hours. No results for input(s): TSH, HA1C, TRIG, HDL, LDLCHOL in the last 168 hours. No results for input(s): LDH, URICACID in the last 168 hours. No results for input(s): PT, PTT, FIBRINOGEN, DDIMER in the last 168 hours. Invalid input(s): THROMBIN TIME Other Labs: Total protein: 5.8 Component Value Date/Time SPGRAVITYUA 1.029 02/01/2020 1631 PHUADIP 5.5 02/01/2020 1631 PROTEINUADIP 100 (A) 02/01/2020 1631 GLUCOSEU Negative 02/01/2020 1631 KETONESUA >=80 (CRIT) 02/01/2020 1631 UROBILIUADIP Normal 02/01/2020 1631 BLOODUADIP Negative 02/01/2020 1631 NITRATEUA Negative 02/01/2020 1631 LEUKOESTERUA Negative 02/01/2020 1631 WBCUA 4 02/01/2020 1631 BILIRUBINUA Negative 02/01/2020 1631 Microbiology: Blood Cultures: NGTD Respiratory panel PCR: negative COVID-19: negative Outside lab tick panel (see scan docs): negative Diagnostic Studies: Results for orders placed or performed during the hospital encounter of 02/01/20 XR Chest PA & Lateral (Generic) (Exam End: 02/01/2020 4:43 PM) Narrative EXAMINATION: XR CHEST PA AND LATERAL (GENERIC) CLINICAL HISTORY: fever, cough; eval acute process TECHNIQUE: PA and lateral views of the chest COMPARISON: None FINDINGS: The lungs are clear. No pleural effusion or pneumothorax. The cardiomediastinal silhouette, donald, and pulmonary vasculature are within normal limits. No significant osseous abnormalities. Impression No acute cardiopulmonary pathology. I have personally reviewed the image(s) and the resident's interpretation and agree with the findings, Kalee Juarez MD at 02/01/2020 4:55 PM Thank you for letting us participate in the care of this patient. For questions regarding this report, please contact the number below. Abdomen & Pelvis w Contrast (Exam End: 02/02/2020 11:29 PM) Narrative EXAMINATION: CT ABDOMEN AND PELVIS W CONTRAST CLINICAL HISTORY: Abdominal infection suspected - Include more detail below neutropenic fever, unclear source History of gastrointestinal stromal tumor TECHNIQUE: Helical CT of the abdomen and pelvis was performed following the intravenous administration of contrast. Administered 66.0 ml of OMNIPAQUE 350.00 mg/ml. Oral contrast was administered. COMPARISON: 11/22/2019 CT abdomen pelvis PET/CT dated 12/29/2019 FINDINGS: Lower chest: Pleural-based nodule image 5 series 906 mm, similar to prior exam given differences in technique and not completely included on first comparison exam dated 11/22/2019 Liver: Normal size and attenuation without lesions. Bile ducts: Slight interval increase of mild intra-and extra hepatic bile duct dilatation. Narrowing distal common bile duct associated with the large mass. Gallbladder: No calcified gallstones. Normal caliber wall. Pancreas: Displacement of the head of the pancreas anteriorly by large mass associated with the duodenum with mild pancreatic ductal dilatation. Spleen: Normal. Adrenals: Normal. Kidneys: Normal. Urinary Bladder: Normal. Vasculature: No aneurysm. Lymph Nodes: No enlarged lymph nodes. Bowel: Heterogeneous mass with low attenuation center associated with the third portion of the duodenum. Apparent ulceration involving the duodenal wall best appreciated image 57 series 900. The mass itself measures in the 6 cm AP by 8 cm transverse by approximately 6 cm in the craniocaudal dimension. There is central low attenuation suggesting necrosis or hemorrhage. The irregular enhancing wall is somewhat thinner and the low attenuation center is larger than on prior exam of 11/22/2019 consistent with additional interval necrosis Peritoneum and mesentery: Small amount of free fluid posterior to the uterus and between the sacrum, rectum and uterus, image 108 series 900. No free air, or loculated fluid collection. No mesenteric inflammation. Abdominal wall: Normal. Reproductive organs: Normal. Osseous structures: No suspicious lesions. Impression 1. Similar overall size of large mass involving the stomach proximal duodenum with some interval thinning of the enhancing wall and interval mild increase in the central low-attenuation suggesting additional interval necrosis. 2. Small amount of free fluid projecting in the cul-de-sac 3. No organized collection. 4. Mild interval increase in intraventricular and extrahepatic bile duct dilatation. Thank you for letting us participate in the care of this patient. For questions regarding this report, please contact the number below. Pathology: None Pending Studies and Lab Data: None Discharge Conditions/Prognosis: Upon discharge the pt is hemodynamically stable, fully ambulatory without requiring supplemental oxygen, afebrile and pain free. Vital Signs on Day of Discharge: Last value Range last 24 hrs Temperature Temp: 36.9 ??C (98.4 ??F) Temp: [36.9 ??C (98.4 ??F)-37.8 ??C (100 ??F)] Heart Rate Heart Rate: 86 Heart Rate: -- Blood Pressure BP: 120/65 BP: (97-127)/(60-70) Respiratory Rate Resp: 16 Resp: [16] SpO2 SpO2: 100 % SpO2: [96 %-100 %] Discharge to: home Discharge Medications: Your Medications New Medications Dose Details ciprofloxacin 500 mg Tab Commonly known as: Cipro Take 1 tablet by mouth 2 times daily. 500 mg Quantity: 20 tablet Refills: 0 metroNIDAZOLE 500 mg Tab Commonly known as: FlagyL Take 1 tablet by mouth 3 times daily. 500 mg Quantity: 30 tablet Refills: 0 valACYclovir 1 gram Tab Commonly known as: VALTREX Take 1 tablet by mouth 2 times daily for 5 days. 1,000 mg Quantity: 10 tablet Refills: 0 Continued medications, unchanged Dose Details cholecalciferol (Vitamin D3) 50 mcg (2,000 unit) Cap Take 2,000 Units by mouth. 2,000 Units Refills: 0 IRON ORAL Take 50 mg by mouth. Actually chelated amino acid Iron 50 mg Refills: 0 MAGNESIUM CARBONATE ORAL Take 325 mg by mouth daily. 325 mg Refills: 0 omeprazole 40 mg Cpdr Commonly known as: PriLOSEC 40 mg Daily. 40 mg Refills: 0 STOPPED Medications imatinib chemo tablet Commonly known as: GLEEVEC Updated Allergies/ADRs: No Known Allergies Instructions & Follow-up: Patient Instructions Instruction after leaving the hospital Why you were hospitalized: You were hospitalized because of fevers and a reduced white blood cell count. The cause of the fevers was thought to be increased size of the tumor in your abdomen. While youwere in the hospital, oncology, surgery, and gastroenterology were involved in your care; they felt that the next step in management of your cancer is to stop the imatinib and meet with Dr Galdamez with eliel baer early next week. Changes on discharge are as follows: - continue ciprofloxacin 500 mg twice daily and metronidazole 500 mg three times daily for 10 days or until advised otherwise by Dr Galdamez - please have blood work done on Wednesday 02/07 - please continue oral valacyclovir for treatment of your cold sore for an additional 7 days - stop the imatinib Call your doctor or seek medical attention if you develop the following: Fevers, new concerning symptoms of cough, shortness of breath, watery diarrhea, aches and pains Activity level: As tolerated Diet: Avoid undercooked or raw foods, ensure safe hygiene when handling or eating food Driving: No restrictions Shower/Bath: No restrictions Specific instructions related to your condition: Take your temperature at home at least once a day. Call immediately if you have temperatures >38.0 C (100.4 F). Continue to take your antibiotics daily. These are Ciprofloxacin (twice a day) and Metronidazole (3 times a day) Try to avoid unnecessary contact with others while your immune system recovers. Ideally would like you to have someone with you or nearby who can take care of you if you start to feel worse. Please follow up with Dr. Galdamez on Wednesday 02/07 at 9 am. Your Inpatient Doctor(s) at [facility]: Kyler Hurley MD General Instructions None Discharge References/Attachments None To-Do List To-Do List Future Appointments Provider Department Dept Phone 02/08/2020 9:00 AM Emely Galdamez MD General Surgery at [facility] Arrive at: [facility] Area 02/23/2020 11:00 AM LABORATORY, Constant Contact Hematology and Oncology at [facility] Arrive at: [facility] [phone] 02/23/2020 12:40 PM [facility] CT 2 CAT Scan at [facility] Arrive at: [facility] INTERVENT[facility]AL RADIOLOGY [phone] Please arrive at the time instructed to complete oral preparation for your examination. 02/23/2020 3:15 PM Morris Dozier MD Hematology and Oncology at [facility] Arrive at: [facility] [phone] 03/06/2020 8:[address] Hematology and Oncology at [facility] Arrive at: [address] [phone] This is a placeholder only and the time may not be accurate. Do not come into the clinic for this appointment. Follow-Up Appointments Future Appointments Date Time Provider Department Center 02/08/2020 9:00 AM Emely Galdamez MD [facility] SURG [facility] 02/23/2020 11:00 AM LABORATORY, TECH [facility] INF [address] [place] [address] 02/23/2020 12:40 PM [facility] [address] [facility] Rad 02/23/2020 3:15 PM Morris Dozier MD [facility] HEM ONC [facility] 03/06/2020 8:[address] [facility] HEM ONC [facility] Provider Contact Information: Irving Wheeler MD [address] / [facility] [address] Signed: Kyler Hurley MD Discharged: 02/04/2020 documented in this encounter Discharge Instructions Patient InstructionsGrKyler casas MD - 02/04/2020 4:07 PM EDT Instruction after leaving the hospital Why you were hospitalized: You were hospitalized because of fevers and a reduced white blood cell count. The cause of the fevers was thought to be increased size of the tumor in your abdomen. While youwere in the hospital, oncology, surgery, and gastroenterology were involved in your care; they felt that the next step in management of your cancer is to stop the imatinib and meet with Dr Galdamez with eliel baer early next week. Changes on discharge are as follows: - continue ciprofloxacin 500 mg twice daily and metronidazole 500 mg three times daily for 10 days or until advised otherwise by Dr Galdamez - please have blood work done on Wednesday 02/07 - please continue oral valacyclovir for treatment of your cold sore for an additional 7 days - stop the imatinib Call your doctor or seek medical attention if you develop the following: Fevers, new concerning symptoms of cough, shortness of breath, watery diarrhea, aches and pains Activity level: As tolerated Diet: Avoid undercooked or raw foods, ensure safe hygiene when handling or eating food Driving: No restrictions Shower/Bath: No restrictions Specific instructions related to your condition: Take your temperature at home at least once a day. Call immediately if you have temperatures >38.0 C (100.4 F). Continue to take your antibiotics daily. These are Ciprofloxacin (twice a day) and Metronidazole (3 times a day) Try to avoid unnecessary contact with others while your immune system recovers. Ideally would like you to have someone with you or nearby who can take care of you if you start to feel worse. Please follow up with Dr. Galdamez on Wednesday 02/07 at 9 am. Your Inpatient Doctor(s) at [facility]: Kyler Hurley MD documented in this encounter Medications at Time of Discharge Medication Sig Dispensed Refills Start Date End Date sucralfate (Carafate) 1 Every 6 hours. 0 07/28/19 20 gram Tablet esomeprazole (NexIUM) 40 Every 12 hours. 0 2019 mg Capsule, Delayed Release(E.C.) ferrous sulfate (IRON Take 50 mg by mouth 0 ORAL) daily. Actually chelated amino acid Iron cholecalciferol, Vitamin Take 4,000 Units by 0 D3, 50 mcg (2,000 unit) mouth daily. Capsule valACYclovir (VALTREX) 1 Take 1 tablet by 10 tablet 0 02/0302/09/2020 gram Tablet mouth 2 times daily for 5 days. MAGNESIUM CARBONATE ORAL Take 325 mg by mouth 0 03/01/2020 daily. omeprazole (PriLOSEC) 40 Take 40 mg by mouth 0 03/29/2020 mg Capsule, Delayed Daily. Release(E.C.) documented as of this encounter Progress Notes Iron Tovar RN - 02/04/2020 4:58 PM EDT Patient discharged today. Prior to discharge, ANC 500, afebrile, & VSS on RA. Denies pain, SOB, nausea, chest pain. Voiding adequately. Loose BM x2 in AM: per MD & infectious disease no furtherworkup required. IV ABX administered per JUL. PIV removed per protocol. AVS reviewed with patient, no further questions at this time. Reinforced education regarding temperature checks at home. Discharged to [facility] with all belongings and home medications with escort from [facility]. Kyler Hurley MD - 02/04/2020 4:17 PM EDT Hospital Medicine - Attending Day of Discharge Documentation Discharge diagnosis Active Hospital Problems No active problems to display. Resolved Hospital Problems Diagnosis Date Resolved ??? Neutropenic fever 02/04/2020 Secondary Issues Active Non-Hospital Problems Diagnosis ??? Anemia ??? Disorder of thyroid gland ??? Arthritis ??? Tinnitus ??? Vitamin D deficiency ??? Osteoarthrosis ??? 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 I spent >30 minutes (Day of Discharge Code 83369) involved in the final examination of the patient, discussion of the hospital stay, instructions for continuing care to all relevant caregivers, and preparation of discharge records, prescriptions and referral forms. Plans ? Discharge to home ? Follow-up scheduled with surgical oncology ? Please see the Discharge Summary for complete details of any medication changes and additional plans. Javier Amaral - 02/04/2020 12:10 PM EDT MEDICINE PROGRESS NOTE Patient info: Name: Mary Kay Gonzalez : 1960 Date of Admission: 02/01/2020 ( Hospital Day 3 days ) Responsible Attending:Kyler Hurley MD ID: [id number] y.o. 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 Neutropenic fever Resolved Hospital Problems No resolved problems to display. Assessment and Plan: 59 year old with a history of small bowel GIST on imatinib (started 12/30, last dose 01/30) presentingwith neutropenic fevers found to have increasing interval necrosis on CT. She has now been afebrile for 24 hours, with ANC of approximately 500, and appears clinically well. Exact source of fevers unclear but reasonable to presume that intra-abdominal necrosis is the most likely culprit. Other infectious workup has been been negative thus far without clinical findings to suggest other source of infection. She appears remarkably well today with no complaints but is rightfully anxious about next steps regarding the tumor. GI, Oncology, and Surgical Oncology are now on board with current considerationof endoscopic drainage. #Febrile neutropenia: Afebrile for 24h now on IV Zosyn, appears well, no symptoms of infection. ANC rising. - Surgical oncology consulted, appreciate recs ?? Likely no Whipple during current episode given current abscess and risk of poor healing with current neutropenia - GI consulted, appreciate recs ?? Team to discuss with feasibility/appropriateness of EUS directed drain placement - Oncology consulted, appreciate recs - F/u blood cultures, urine cultures: both NGTD - Continue broad spectrum antibiotics (Cefepime (01/31 - 02/02), pip-tazo (02/02 --->) - Acetaminophen prn - Maintain neutropenic precautions - Follow ANC (last ANC ~500), trend fever curve (afebrile now >24h) #oral herpes lesion - valacyclovir 1000 mg BID for 10 days or until lesion resolution - monitor for disseminated disease #GIST: - Holding imatinib for now given febrile neutropenia - appreciate oncology recs Misc Diet: Regular diet DVT: Lovenox GI ppx: Senna, Colace, Zofran Lines: PIV Code status: Attempt Cardiopulmonary Resuscitation - Inpatient Dispo: Likely home on d/c pending clinical course 24 Hour Events/Subjective: ?? Switched from Cefepime to Zosyn ?? Seen by GI and surgical oncology this AM ?? Droplet precautions D/alfonso ?? VSS, Afebrile overnight, no acute events ?? Eating/drinking well, ambulating, no complaints this AM ROS: Denies CP, SOB, palpitations, PND, Orthopnea, dizziness/LH, LE swelling or pain, n/v, abd pain. Hospital Course: 01/31: Admitted from ED with febrile neutropenia, started on IV cefepime 02/01: Recurrent fevers overnight, acyclovir added, CT scan obtained 02/02: Switched to IV Zosyn 02/03: GI, Surg Onc, Oncology consulted given interval necrosis Vitals: Last value Range last 24 hrs Temperature Temp: 36.9 ??C (98.4 ??F) Temp: [36.9 ??C (98.4 ??F)-37.8 ??C (100 ??F)] Heart Rate Heart Rate: 86 Heart Rate: -- Blood Pressure BP: 119/64 BP: (97-127)/(60-70) Respiratory Rate Resp: 16 Resp: [16] SpO2 SpO2: 98 % SpO2: [96 %-99 %] Ins/Outs: Intake/Output Summary (Last 24 hours) at 02/04/2020 1235 Last data filed at 02/04/2020 0710 Gross per 24 hour Intake 2643 ml Output 1600 ml Net 1043 ml Physical Exam: General: Well appearing, mildly anxious HEENT: - Mouth: Moist mucus membranes. Mucosa pink. Tongue normal in color, protrudes symmetrically. Oropharynx without erythema or lesions. CV: RRR, S1,S2, no audible murmur, gallop or rubs. Lungs: Symmetrical excursions, breathing comfortably. No chest wall deformities noted. Lung rossi clear to auscultation bilaterally. Abdomen/GI: Non tender to palpation. Abdomen soft, normal bowel sounds. No CVA tenderness. Extremities: No cyanosis or edema. Pulses intact. Skin: Warm, dry skin. No rashes noted. Neuro: AAOx3, speech normal. CN II-XII grossly intact. Strength 5/5 in all extremities. Normal gait. Labs: CBC: Recent Labs 02/04/20 0824 02/04/20 0348 02/03/20 0458 WBC 3.2* Disregard 2.4* HGB 10.2* Disregard 10.3* PLATELET 219 Disregard 184 PMN: 15.6% ANC: 499.2 . Chemistry: Recent Labs 02/04/20 0348 02/03/20 1502 02/03/20 0458 02/02/20 0450 NA 140 142 139 138 K 3.9 3.5 2.9* 3.3* CL 106 104 102 103 CO2 26 29 27 24 BUN 6* 5* 6* 12 CREATININE 0.41* 0.45* 0.42* 0.47* GLUCOSE 99 -- 107 93 Recent Labs 02/04/20 0348 02/03/20 1502 02/03/20 0458 01/26/20 1333 CALCIUM 8.6 9.1 8.3* < > 9.4 MAGNESIUM -- -- -- -- 0.81 < > = values in this interval not displayed. LFT's No results found for: ALKPHOS, AST, ALBUMIN, BILIDIR, BILITOT, ALT, PROT U/A: Component Value Date/Time SPGRAVITYUA 1.029 02/01/2020 1631 PHUADIP 5.5 02/01/2020 1631 PROTEINUADIP 100 (A) 02/01/2020 1631 GLUCOSEU Negative 02/01/2020 1631 KETONESUA >=80 (CRIT) 02/01/2020 1631 UROBILIUADIP Normal 02/01/2020 1631 BLOODUADIP Negative 02/01/2020 1631 NITRATEUA Negative 02/01/2020 1631 LEUKOESTERUA Negative 02/01/2020 1631 WBCUA 4 02/01/2020 1631 BILIRUBINUA Negative 02/01/2020 1631 Microbiology: Microbiology Results (Last 30 days) Procedure Component Value Units Date/Time Respiratory Panel PCR [[id number]] Collected: 02/03/20 1632 Lab Status: Final result Specimen: Nasopharyngeal Swab Updated: 02/03/20 1845 Resp Panel Source [employer] Swab Resp Panel PCR Negative Comment: Respiratory Panels are performed on the [employer], using multiplexed PCR nucleic acid detection. Negative results do not preclude respiratory infection and should not be used as the sole basis for diagnosis, treatment or other management decisions. Adenovirus Not Detected Coronavirus HKU1 Not Detected Coronavirus NL63 Not Detected Coronavirus 229E Not Detected Coronavirus OC43 Not Detected Human Metapneumovirus Not Detected Human Rhino/Enterovirus Not Detected Influenza A Not Detected Influenza B Not Detected Parainfluenza 1 Not Detected Parainfluenza 2 Not Detected Parainfluenza 3 Not Detected Parainfluenza 4 Not Detected Respiratory Syncytial Virus Not Detected Chlamydophila pneumoniae Not Detected Mycoplasma pneumoniae Not Detected Blood culture [[id number]] Collected: 02/03/20 045 Lab Status: Preliminary result Specimen: Blood from Arm, Right Updated: 02/04/20 07 Blood Culture No growth at 1 day. Blood culture [[id number]] Collected: 02/03/20 0458 Lab Status: Preliminary result Specimen: Blood from Hand, Left Updated: 02/04/20 0701 Blood Culture No growth at 1 day. Blood culture [[id number]] Collected: 02/01/20 1805 Lab Status: Preliminary result Specimen: Blood Updated: 02/03/20 2301 Blood Culture No growth at 2 days. Blood culture [[id number]] Collected: 02/01/20 1625 Lab Status: Preliminary result Specimen: Blood Updated: 02/03/20 2301 Blood Culture No growth at 2 days. COVID-19 PCR [[id number]] Collected: 01/31/20 0001 Lab Status: Final result Specimen: Nasopharyngeal Swab Updated: 02/01/20 1453 SARS-CoV-2 RNA Not Detected Comment: This result should be interpreted in combination with the clinical observations, patient history and epidemiological information in making a final diagnosis. For testing of asymptomatic individuals, assay performance characteristics and clinical utility have not been evaluated. Testing for SARS-CoV-2 (Severe acute respiratory syndrome coronavirus 2, formerly known as 2019 novel coronavirus or 2019-nCoV) to aid in the diagnosis of COVID-19 is performed using the [employer] SARS-CoV-2 Assay as authorized by the FDA Emergency Use Authorization (EUA). This EUA assay is intended for In-vitro Diagnostic (IVD) use with respiratory specimens such as nasopharyngeal swabs collected from individuals during the acute phase of infection. This assay is performed based on the instructions for use provided by [employer] and additional guidance provided by CDC and FDA. Testing is performed in the [facility] within the Department of Pathology and Laboratory Medicine at [facility], certified under the Clinical Laboratory Improvement Amendments of 1988 (CLIA), 42 U.S.C. 263a, to perform high complexity tests. Assay performance has been verified according to clinical laboratory regulatory requirements for use with specimens collected from individuals suspected of COVID-19. Test results are provided above. A result of ???Not Detected?? indicates that the viral RNA target is not present above the limit of detection, but does not preclude SARS-CoV-2 infection. False negative results may occur if a specimen is improperly collected, transported or handled; if amplification inhibitors are present; or if inadequate numbers of viral particles are present in the specimen. When a diagnostic test is negative, the possibility of a false negative result should be considered in the context of a patient???s recent exposures and the presence of clinical signs and symptoms consistent with COVID-19. A result of ???Detected?? indicates that RNA from SARS-CoV-2 was detected and the patient is infected. As required or requested by public health authorities, positive specimens may be sent for additional testing. Positive and negative predictive values for this test are highly dependent on disease prevalence. A result of ???Invalid?? indicates that neither the viral RNA targets nor the internal control target was detected. An invalid result suggests the presence of inhibitors. Recollection and re-testing is recommended in the case of an invalid result. CDC COVID-19 criteria for testing on human specimens and clinical management guidance information are available at the CDC Coronavirus Disease 2019 (COVID-19) webpage under ???Information for Healthcare Professionals?? (https://www.cdc.gov/coronavirus/2019-ncov/hcp/index.html) Additional information about this and other EUA tests can be found in provider and patient fact sheets at the following FDA website: https://www.fda.gov/medical-devices/kapnflckicw-awpuowd-7921-ywvjh-34-wgxedvveh- jkq-cjrweoghmlvzcp-zyvfbnp-devices/qwdsw-yosoubpnuem-tvzy SARS-Cov-2 RNA Source [employer] Swab Pertinent radiology/diagnostic studies: Results for orders placed or performed during the hospital encounter of 02/01/20 XR Chest PA & Lateral (Generic) (Exam End: 02/01/2020 4:43 PM) Narrative EXAMINATION: XR CHEST PA AND LATERAL (GENERIC) CLINICAL HISTORY: fever, cough; eval acute process TECHNIQUE: PA and lateral views of the chest COMPARISON: None FINDINGS: The lungs are clear. No pleural effusion or pneumothorax. The cardiomediastinal silhouette, donald, and pulmonary vasculature are within normal limits. No significant osseous abnormalities. Impression No acute cardiopulmonary pathology. I have personally reviewed the image(s) and the resident's interpretation and agree with the findings, Kalee Juarez MD at 02/01/2020 4:55 PM Thank you for letting us participate in the care of this patient. For questions regarding this report, please contact the number below. Abdomen & Pelvis w Contrast (Exam End: 02/02/2020 11:29 PM) Narrative EXAMINATION: CT ABDOMEN AND PELVIS W CONTRAST CLINICAL HISTORY: Abdominal infection suspected - Include more detail below neutropenic fever, unclear source History of gastrointestinal stromal tumor TECHNIQUE: Helical CT of the abdomen and pelvis was performed following the intravenous administration of contrast. Administered 66.0 ml of OMNIPAQUE 350.00 mg/ml. Oral contrast was administered. COMPARISON: 11/22/2019 CT abdomen pelvis PET/CT dated 12/29/2019 FINDINGS: Lower chest: Pleural-based nodule image 5 series 906 mm, similar to prior exam given differences in technique and not completely included on first comparison exam dated 11/22/2019 Liver: Normal size and attenuation without lesions. Bile ducts: Slight interval increase of mild intra-and extra hepatic bile duct dilatation. Narrowing distal common bile duct associated with the large mass. Gallbladder: No calcified gallstones. Normal caliber wall. Pancreas: Displacement of the head of the pancreas anteriorly by large mass associated with the duodenum with mild pancreatic ductal dilatation. Spleen: Normal. Adrenals: Normal. Kidneys: Normal. Urinary Bladder: Normal. Vasculature: No aneurysm. Lymph Nodes: No enlarged lymph nodes. Bowel: Heterogeneous mass with low attenuation center associated with the third portion of the duodenum. Apparent ulceration involving the duodenal wall best appreciated image 57 series 900. The mass itself measures in the 6 cm AP by 8 cm transverse by approximately 6 cm in the craniocaudal dimension. There is central low attenuation suggesting necrosis or hemorrhage. The irregular enhancing wall is somewhat thinner and the low attenuation center is larger than on prior exam of 11/22/2019 consistent with additional interval necrosis Peritoneum and mesentery: Small amount of free fluid posterior to the uterus and between the sacrum, rectum and uterus, image 108 series 900. No free air, or loculated fluid collection. No mesenteric inflammation. Abdominal wall: Normal. Reproductive organs: Normal. Osseous structures: No suspicious lesions. Impression 1. Similar overall size of large mass involving the stomach proximal duodenum with some interval thinning of the enhancing wall and interval mild increase in the central low-attenuation suggesting additional interval necrosis. 2. Small amount of free fluid projecting in the cul-de-sac 3. No organized collection. 4. Mild interval increase in intraventricular and extrahepatic bile duct dilatation. Thank you for letting us participate in the care of this patient. For questions regarding this report, please contact the number below. Inpatient Medications: ??? zinc sulfate (Zincate) capsule 220 mg ??? piperacillin-tazobactam (ZOSYN) 3.375 g vial attach to sodium chloride 0.9% 50 mL Mini-Bag Plus ??? enoxaparin (LOVENOX) injection 40 mg ??? valACYclovir (Valtrex) tablet 1,000 mg ??? iohexoL (Omnipaque) 350 mg/mL solution 0-50 mL ??? sodium chloride 0.9 % (flush) flush 5 mL ??? sodium chloride 0.9 % (flush) flush 5-20 mL ??? lidocaine (XYLOCAINE) 10 mg/mL (1 %) injection 3 mg ??? docusate sodium (Colace) capsule 100 mg ??? acetaminophen (Tylenol) tablet 650 mg ??? ondansetron (Zofran) tablet 4-8 mg OR ondansetron (ZOFRAN) injection 4-8 mg ??? melatonin tablet 3 mg Continuous Infusions: Scheduled Meds: ??? zinc sulfate 220 mg Oral Daily ??? piperacillin-tazobactam 3.375 g Intravenous Q8H ??? enoxaparin 40 mg Subcutaneous Nightly ??? valACYclovir 1,000 mg Oral BID ??? sodium chloride 0.9 % (flush) 5 mL Intravenous BID ??? docusate sodium 100 mg Oral BID PRN Meds:.iohexoL, sodium chloride 0.9 % (flush), lidocaine, acetaminophen, ondansetron OR ondansetron, melatonin Javier Amaral 02/04/2020 12:35 PM Hospital Medicine, [place]-4 Pager #[phone] Team Pager #[phone] Martin Rodriguez, LOAN SERVICES PROFESSIONAL - 02/03/2020 4:26 PM EDT Continuing to discuss pt's status and situation during multidisciplinary discharge planning rounds. Met with pt (GIST, , originaly from [place] and with two sons in the [place]) from her request to review coverage concerns. Pt with [employer] and discussed likely expectations for her needs.Also discussed her experience with PA needs in past for complicated medications/procedures, though she has not encountered any significant OOP expenses. Also provided copy of [facility]-Financial Assistance Program Application (Patient Access Resource [facility]/PFS-Needed Services Application). Also discussed [facility] AD's-pt has forms and is in process of reviewing. Likely to appoint sons as proxies and she will d/w them. Following for LOAN SERVICES PROFESSIONAL and care management support through disposition for resource concerns, and coping needs through her cancer dx ad treatment. Kyler Hurley MD - 02/03/2020 12:35 PM EDT MEDICINE PROGRESS NOTE Patient info: Name: Mary Kay Gonzalez : 1960 Date of Admission: 02/01/2020 ( Hospital Day 2 days ) Responsible Attending:Kyler Hurley MD ID: [id number] y.o. 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 Neutropenic fever Resolved Hospital Problems No resolved problems to display. 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 Most likely sources at present are viral URI given her congestion and a sonwith similar symptoms and increased necrosis of known GIST on CT abdomen. At this time will engage surgical oncology to consider tumor resection. #Febrile neutropenia: currently exploring fevers secondary to increased necrosis of GIST - started pip-tazo for better anaerobe coverage - consult to surgical oncology to consider tumor resection - F/u blood cultures, urine cultures - Continue broad spectrum antibiotics (Cefepime (01/31 - 02/02), pip-tazo (02/02 --->) - Obtain viral respiratory panel - Acetaminophen prn - Maintain neutropenic precautions - Follow ANC, trend fever curve - Oncology consulted, appreciate recs #oral herpes lesion - valacyclovir 1000 mg BID for 10 days or until lesion resolution - monitor for disseminated disease #GIST: - Holding imatinib for now given febrile neutropenia - appreciate oncology recs [facility] Diet: Regular diet DVT: Lovenox GI ppx: Senna, Leila, Fernando Lines: PIV Code status: Attempt Cardiopulmonary Resuscitation - Inpatient Dispo: Likely home on d/c pending clinical course 24 Hour Events/Subjective: ?? Started on valacyclovir given oral HSV lesion ?? CT a/p performed last night showing increased size of necrotic GIST ?? Febrile overnight to 38.4, blood cultures drawn ?? In AM had K 2.9, Cr 0.4. Received PO KCl 40 mEq x 2 ?? Feeling well this morning, no complaints. Eating/drinking/ambulating well. Headache no longer present. Mild, chronic cough present. ROS: Denies CP, SOB, palpitations, PND, Orthopnea, dizziness/LH, LE swelling or pain, n/v, abd pain. Hospital Course: 01/31: Admitted from ED with febrile neutropenia, started on IV cefepime 02/01: Recurrent fevers overnight, acyclovir added, CT without abscess Vitals: Last value Range last 24 hrs Temperature Temp: 36.6 ??C (97.9 ??F) Temp: [36.6 ??C (97.9 ??F)-39.4 ??C (102.9 ??F)] Heart Rate Heart Rate: 86 Heart Rate: -- Blood Pressure BP: 113/64 BP: (105-122)/(56-68) Respiratory Rate Resp: 16 Resp: [16-18] SpO2 SpO2: 99 % SpO2: [96 %-99 %] Ins/Outs: Intake/Output Summary (Last 24 hours) at 02/03/2020 1357 Last data filed at 02/03/2020 1213 Gross per 24 hour Intake 1401 ml Output 2550 ml Net -1149 ml Physical Exam: General: Well appearing, in good spirits. NAD. HEENT: - Mouth: Single vesicular lesion on lower lip, smaller in size from prior. Moist mucus membranes. Mucosa pink. Tongue normal in color, protrudes symmetrically. Oropharynx without erythema or lesions. CV: RRR, S1,S2, no audible murmur, gallop or rubs. Lungs: Symmetrical excursions, breathing comfortably. No chest wall deformities noted. Lung rossi clear to auscultation bilaterally. Abdomen/GI: Non tender to palpation. Abdomen soft, normal bowel sounds. No CVA tenderness. Extremities: No cyanosis or edema. Pulses intact. Skin: Warm, dry skin. No rashes noted. Neuro: AAOx3, speech normal. CN II-XII grossly intact. Strength 5/5 in all extremities Labs: CBC: Recent Labs 02/03/20 0458 02/02/20 0450 02/01/20 1809 WBC 2.4* 2.1* 1.6* HGB 10.3* 10.2* 10.6* PLATELET 184 150 160 PMN: 4% ANC: 84 . Chemistry: Recent Labs 02/03/20 0458 02/02/20 0450 02/01/20 1625 NA 139 138 136 K 2.9* 3.3* 3.2* CL 102 103 100 CO2 27 24 26 BUN 6* 12 11 CREATININE 0.42* 0.47* 0.51* GLUCOSE 107 93 103 Recent Labs 02/03/20 0458 02/02/20 0450 02/01/20 1625 01/26/20 1333 CALCIUM 8.3* 8.6 8.5 9.4 MAGNESIUM -- -- -- 0.81 LFT's Lab Results Component Value Date Alk Phos 53 02/03/2020 AST 25 02/03/2020 Albumin 3.4 02/03/2020 Bili, Direct 0.1 02/03/2020 Total Bilirubin 0.3 02/03/2020 ALT 23 02/03/2020 Total Protein 5.8 (L) 02/03/2020 U/A: Component Value Date/Time SPGRAVITYUA 1.029 02/01/2020 1631 PHUADIP 5.5 02/01/2020 1631 PROTEINUADIP 100 (A) 02/01/2020 1631 GLUCOSEU Negative 02/01/2020 1631 KETONESUA >=80 (CRIT) 02/01/2020 1631 UROBILIUADIP Normal 02/01/2020 1631 BLOODUADIP Negative 02/01/2020 1631 NITRATEUA Negative 02/01/2020 1631 LEUKOESTERUA Negative 02/01/2020 1631 WBCUA 4 02/01/2020 1631 BILIRUBINUA Negative 02/01/2020 1631 Microbiology: Microbiology Results (Last 30 days) Procedure Component Value Units Date/Time Blood culture [[id number]] Collected: 02/01/20 1805 Lab Status: Preliminary result Specimen: Blood Updated: 02/02/20 2302 Blood Culture No growth at 1 day. Blood culture [[id number]] Collected: 02/01/20 1625 Lab Status: Preliminary result Specimen: Blood Updated: 02/02/20 2302 Blood Culture No growth at 1 day. COVID-19 PCR [[id number]] Collected: 01/31/20 0001 Lab Status: Final result Specimen: Nasopharyngeal Swab Updated: 02/01/20 1453 SARS-CoV-2 RNA Not Detected Comment: This result should be interpreted in combination with the clinical observations, patient history and epidemiological information in making a final diagnosis. For testing of asymptomatic individuals, assay performance characteristics and clinical utility have not been evaluated. Testing for SARS-CoV-2 (Severe acute respiratory syndrome coronavirus 2, formerly known as 2019 novel coronavirus or 2019-nCoV) to aid in the diagnosis of COVID-19 is performed using the [employer] SARS-CoV-2 Assay as authorized by the FDA Emergency Use Authorization (EUA). This EUA assay is intended for In-vitro Diagnostic (IVD) use with respiratory specimens such as nasopharyngeal swabs collected from individuals during the acute phase of infection. This assay is performed based on the instructions for use provided by [employer] and additional guidance provided by CDC and FDA. Testing is performed in the [facility] within the Department of Pathology and Laboratory Medicine at [facility], certified under the Clinical Laboratory Improvement Amendments of 1988 (CLIA), 42 U.S.C. 263a, to perform high complexity tests. Assay performance has been verified according to clinical laboratory regulatory requirements for use with specimens collected from individuals suspected of COVID-19. Test results are provided above. A result of ???Not Detected?? indicates that the viral RNA target is not present above the limit of detection, but does not preclude SARS-CoV-2 infection. False negative results may occur if a specimen is improperly collected, transported or handled; if amplification inhibitors are present; or if inadequate numbers of viral particles are present in the specimen. When a diagnostic test is negative, the possibility of a false negative result should be considered in the context of a patient???s recent exposures and the presence of clinical signs and symptoms consistent with COVID-19. A result of ???Detected?? indicates that RNA from SARS-CoV-2 was detected and the patient is infected. As required or requested by public health authorities, positive specimens may be sent for additional testing. Positive and negative predictive values for this test are highly dependent on disease prevalence. A result of ???Invalid?? indicates that neither the viral RNA targets nor the internal control target was detected. An invalid result suggests the presence of inhibitors. Recollection and re-testing is recommended in the case of an invalid result. CDC COVID-19 criteria for testing on human specimens and clinical management guidance information are available at the CDC Coronavirus Disease 2019 (COVID-19) webpage under ???Information for Healthcare Professionals?? (https://www.cdc.gov/coronavirus/2019-ncov/hcp/index.html) Additional information about this and other EUA tests can be found in provider and patient fact sheets at the following FDA website: https://www.fda.gov/medical-devices/szsvdxuutrf-nawlhzj-6397-oeptg-36-wnynfoxcb- qto-lwhiwuvponuyqk-izobrig-devices/rpwec-ysafeuczwro-vcgy SARS-Cov-2 RNA Source [employer] Swab Pertinent radiology/diagnostic studies: Results for orders placed or performed during the hospital encounter of 02/01/20 XR Chest PA & Lateral (Generic) (Exam End: 02/01/2020 4:43 PM) Narrative EXAMINATION: XR CHEST PA AND LATERAL (GENERIC) CLINICAL HISTORY: fever, cough; eval acute process TECHNIQUE: PA and lateral views of the chest COMPARISON: None FINDINGS: The lungs are clear. No pleural effusion or pneumothorax. The cardiomediastinal silhouette, donald, and pulmonary vasculature are within normal limits. No significant osseous abnormalities. Impression No acute cardiopulmonary pathology. I have personally reviewed the image(s) and the resident's interpretation and agree with the findings, Kalee Juarez MD at 02/01/2020 4:55 PM Thank you for letting us participate in the care of this patient. For questions regarding this report, please contact the number below. Abdomen & Pelvis w Contrast (Exam End: 02/02/2020 11:29 PM) Narrative EXAMINATION: CT ABDOMEN AND PELVIS W CONTRAST CLINICAL HISTORY: Abdominal infection suspected - Include more detail below neutropenic fever, unclear source History of gastrointestinal stromal tumor TECHNIQUE: Helical CT of the abdomen and pelvis was performed following the intravenous administration of contrast. Administered 66.0 ml of OMNIPAQUE 350.00 mg/ml. Oral contrast was administered. COMPARISON: 11/22/2019 CT abdomen pelvis PET/CT dated 12/29/2019 FINDINGS: Lower chest: Pleural-based nodule image 5 series 906 mm, similar to prior exam given differences in technique and not completely included on first comparison exam dated 11/22/2019 Liver: Normal size and attenuation without lesions. Bile ducts: Slight interval increase of mild intra-and extra hepatic bile duct dilatation. Narrowing distal common bile duct associated with the large mass. Gallbladder: No calcified gallstones. Normal caliber wall. Pancreas: Displacement of the head of the pancreas anteriorly by large mass associated with the duodenum with mild pancreatic ductal dilatation. Spleen: Normal. Adrenals: Normal. Kidneys: Normal. Urinary Bladder: Normal. Vasculature: No aneurysm. Lymph Nodes: No enlarged lymph nodes. Bowel: Heterogeneous mass with low attenuation center associated with the third portion of the duodenum. Apparent ulceration involving the duodenal wall best appreciated image 57 series 900. The mass itself measures in the 6 cm AP by 8 cm transverse by approximately 6 cm in the craniocaudal dimension. There is central low attenuation suggesting necrosis or hemorrhage. The irregular enhancing wall is somewhat thinner and the low attenuation center is larger than on prior exam of 11/22/2019 consistent with additional interval necrosis Peritoneum and mesentery: Small amount of free fluid posterior to the uterus and between the sacrum, rectum and uterus, image 108 series 900. No free air, or loculated fluid collection. No mesenteric inflammation. Abdominal wall: Normal. Reproductive organs: Normal. Osseous structures: No suspicious lesions. Impression 1. Similar overall size of large mass involving the stomach proximal duodenum with some interval thinning of the enhancing wall and interval mild increase in the central low-attenuation suggesting additional interval necrosis. 2. Small amount of free fluid projecting in the cul-de-sac 3. No organized collection. 4. Mild interval increase in intraventricular and extrahepatic bile duct dilatation. Thank you for letting us participate in the care of this patient. For questions regarding this report, please contact the number below. Inpatient Medications: ??? MEDICATION NONFORMULARY REQUEST 50 mg ??? enoxaparin (LOVENOX) injection 40 mg ??? valACYclovir (Valtrex) tablet 1,000 mg ??? iohexoL (Omnipaque) 350 mg/mL solution 0-50 mL ??? ceFEPime (MAXIPIME) 2g vial attach to sodium chloride 0.9% 100 mL Mini-Bag Plus ??? sodium chloride 0.9 % (flush) flush 5 mL ??? sodium chloride 0.9 % (flush) flush 5-20 mL ??? lidocaine (XYLOCAINE) 10 mg/mL (1 %) injection 3 mg ??? docusate sodium (Colace) capsule 100 mg ??? acetaminophen (Tylenol) tablet 650 mg ??? ondansetron (Zofran) tablet 4-8 mg OR ondansetron (ZOFRAN) injection 4-8 mg ??? melatonin tablet 3 mg Continuous Infusions: Scheduled Meds: ??? Medication Non-Formulary Request 50 mg Oral QAM ??? enoxaparin 40 mg Subcutaneous Nightly ??? valACYclovir 1,000 mg Oral BID ??? ceFEPime 2 g Intravenous Q8H ??? sodium chloride 0.9 % (flush) 5 mL Intravenous BID ??? docusate sodium 100 mg Oral BID PRN Meds:.iohexoL, sodium chloride 0.9 % (flush), lidocaine, acetaminophen, ondansetron OR ondansetron, melatonin Javier Amaral 02/03/2020 1:57 PM [facility], [place]-4 Pager #[phone] Team Pager #[phone] Please see the above note for details of the patient history of presentation, physical exam and data. I have discussed, reviewed and agree with the documented History, Physical findings, Assessment andPlan of care. The history and physical exam was repeated and confirmed personally by myself. Kyler Hurley MD 02/03/2020 5:39 PM Kyler Hurley MD - 02/02/2020 7:00 AM EDT MEDICINE PROGRESS NOTE Patient info: Name: Mary Kay Gonzalez : 1960 Date of Admission: 02/01/2020 ( Hospital Day 1 day ) Responsible Attending:Kyler Hurley MD ID: 59 y.o. female admitted for neutropenic fevers Hospital Problem List: Active Hospital Problems Diagnosis ??? Neutropenic fever Resolved Hospital Problems No resolved problems to display. 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 No obvious source of infection currently, although recent flu-like symptoms point to possible viral URI. Work- up so far has been negative for COVID and Flu, UA without pyuria, CXR clear, no clear source on exam. Blood and urine cultures are pending. She appears well on physicalexam with mild dry cough and flushing. She was started on Cefepime in the ED but continued to be febrile this AM. By noon, she had defervesced to 37.7C. Will plan to continue broad spectrum antibioticsand trend fevers/CBCs. #Febrile neutropenia: No obvious source noted yet, may be secondary to recent URI with flu-like symptoms or herpetic sore on lip. Appears clinically well despite fevers. Will continue to monitor closely and maintain antibiotics. - F/u blood cultures, urine cultures - CT a/p with contrast this evening to eval for occult infection - Continue Cefepime (01/31 - ) - Acetaminophen prn - Maintain neutropenic precautions - Follow ANC, trend fever curve - Will consult ID 02/02 if ongoing fevers despite above work up and treatment #oral herpes lesion - valacyclovir 1000 mg BID for 10 days or until lesion resolution - monitor for disseminated disease #GIST: - Holding imatinib/Gleevec for now given febrile neutropenia - Oncology aware, will update outpatient oncologist [facility] Diet: Regular diet DVT: Lovenox GI ppx: Senna, Colace, Zofran Lines: PIV Code status: Attempt Cardiopulmonary Resuscitation - Inpatient Dispo: Likely home on d/c 24 Hour Events/Subjective: HPI: ?? 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 ?? The patient's history of present illness goes back about 6 days ago when first started to feel unwell. Symptoms improved until 3 days prior to admission when progressed to include dry cough and myalgia. A fever of 101.2 was reported. Her symptoms included headache and sinus pain. ?? The patient went to see her primary care physician 1 day prior to admission who performed a COVIDand Flu test. Temperature at that time was 101.2F. The PCP and her oncologist noted a low WBC (3.8, ANC 80) and referred her to the ED. ?? Her temperature last night as 103F, took Tylenol 1000 mg around 4 pm. Recent exposure include sonwith cold last week. No recent procedures. ?? ROS negative for n/v, CP, abdominal pain, back pain, urinary symptoms, hematuria, bloody stools, diarrhea, constipation, new sores or wounds, or sore throat. +chronic SOB. ?? Work-up in the emergency room included chest x-ray and a UA that was negative. ?? The patient also had a COVID test that was negative yesterday. ?? The ED physician discussed the case with oncology. She was started on cefepime for broad-spectrumantibiotics. Blood cultures were also obtained. 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 She denies skin breaks on her hands O/N: ?? Patient was comfortable overnight, in no acute distress ?? Tmax 38.1, tylenol given, IV antibiotics continued ROS: +Headache. Denies CP, SOB, palpitations, PND, Orthopnea, dizziness/LH, LE swelling or pain, n/v, abd pain. Hospital Course: 01/31: Admitted from ED with febrile neutropenia, started on IV cefepime Vitals: Last value Range last 24 hrs Temperature Temp: 37.7 ??C (99.9 ??F) Temp: [36.7 ??C (98.1 ??F)-39 ??C (102.2 ??F)] Heart Rate Heart Rate: 86 Heart Rate: [86-107] Blood Pressure BP: 110/56 BP: (95-114)/(36-71) Respiratory Rate Resp: 16 Resp: [15-21] SpO2 SpO2: 95 % SpO2: [95 %-100 %] Ins/Outs: Intake/Output Summary (Last 24 hours) at 02/02/2020 1315 Last data filed at 02/02/2020 1044 Gross per 24 hour Intake 800 ml Output 950 ml Net -150 ml Physical Exam: General: Fatigued appearing, but otherwise well. NAD, reading in bed. HEENT: - Head: Normocephalic, atraumatic. No scalp lesions noted. - Eyes: PERRL. EOMI without nystagmus. Sclera non-icteric, non-injected - Nose: External nose normal without lesions or asymmetry. - Mouth: Single vesicular lesion on lower lip. Moist mucus membranes. Mucosa pink. Tongue normal in color, protrudes symmetrically. Oropharynx without erythema or lesions. CV: RRR, S1,S2, no audible murmur, gallop or rubs. Lungs: Symmetrical excursions, breathing comfortably. No chest wall deformities noted. Lung rossi clear to auscultation and percussion bilaterally. Abdomen/GI: Mild tenderness to palpation in RLQ. Abdomen soft, normal bowel sounds. No CVA tenderness. Extremities: No cyanosis or edema. Pulses intact. Skin: warm, moist skin. No rashes noted. MSK: Full ROM Neuro: AAOx3, speech normal. CN II-XII grossly intact. Strength 5/5 in all extremities Labs: CBC: Recent Labs 02/02/20 0450 02/01/20 1809 02/01/20 1625 WBC 2.1* 1.6* Clotted HGB 10.2* 10.6* Clotted PLATELET 150 160 Clotted PMN: 4% ANC: 84 . Chemistry: Recent Labs 02/02/20 0450 02/01/20 1625 01/26/20 1333 NA 138 136 142 K 3.3* 3.2* 3.7 CL 103 100 106 CO2 24 26 27 BUN 12 11 14 CREATININE 0.47* 0.51* 0.66* GLUCOSE 93 103 90 Recent Labs 02/02/20 0450 02/01/20 1625 01/26/20 1333 CALCIUM 8.6 8.5 9.4 MAGNESIUM -- -- 0.81 LFT's Lab Results Component Value Date Alk Phos 57 02/01/2020 AST 22 02/01/2020 Albumin 3.9 02/01/2020 Bili, Direct 0.2 02/01/2020 Total Bilirubin 0.5 02/01/2020 ALT 21 02/01/2020 Total Protein 6.4 02/01/2020 U/A: Component Value Date/Time SPGRAVITYUA 1.029 02/01/2020 1631 PHUADIP 5.5 02/01/2020 1631 PROTEINUADIP 100 (A) 02/01/2020 1631 GLUCOSEU Negative 02/01/2020 1631 KETONESUA >=80 (CRIT) 02/01/2020 1631 UROBILIUADIP Normal 02/01/2020 1631 BLOODUADIP Negative 02/01/2020 1631 NITRATEUA Negative 02/01/2020 1631 LEUKOESTERUA Negative 02/01/2020 1631 WBCUA 4 02/01/2020 1631 BILIRUBINUA Negative 02/01/2020 1631 Microbiology: Microbiology Results (Last 30 days) Procedure Component Value Units Date/Time COVID-19 PCR [[id number]] Collected: 01/31/20 0001 Lab Status: Final result Specimen: Nasopharyngeal Swab Updated: 02/01/20 1453 SARS-CoV-2 RNA Not Detected Comment: This result should be interpreted in combination with the clinical observations, patient history and epidemiological information in making a final diagnosis. For testing of asymptomatic individuals, assay performance characteristics and clinical utility have not been evaluated. Testing for SARS-CoV-2 (Severe acute respiratory syndrome coronavirus 2, formerly known as 2019 novel coronavirus or 2019-nCoV) to aid in the diagnosis of COVID-19 is performed using the [employer] RealTime SARS-CoV-2 Assay as authorized by the FDA Emergency Use Authorization (EUA). This EUA assay is intended for In-vitro Diagnostic (IVD) use with respiratory specimens such as nasopharyngeal swabs collected from individuals during the acute phase of infection. This assay is performed based on the instructions for use provided by [employer]. and additional guidance provided by CDC and FDA. Testing is performed in the [facility] within the Department of Pathology and Laboratory Medicine at [facility], certified under the Clinical Laboratory Improvement Amendments of 1988 (CLIA), 42 U.S.C. 263a, to perform high complexity tests. Assay performance has been verified according to clinical laboratory regulatory requirements for use with specimens collected from individuals suspected of COVID-19. Test results are provided above. A result of ???Not Detected?? indicates that the viral RNA target is not present above the limit of detection, but does not preclude SARS-CoV-2 infection. False negative results may occur if a specimen is improperly collected, transported or handled; if amplification inhibitors are present; or if inadequate numbers of viral particles are present in the specimen. When a diagnostic test is negative, the possibility of a false negative result should be considered in the context of a patient???s recent exposures and the presence of clinical signs and symptoms consistent with COVID-19. A result of ???Detected?? indicates that RNA from SARS-CoV-2 was detected and the patient is infected. As required or requested by public health authorities, positive specimens may be sent for additional testing. Positive and negative predictive values for this test are highly dependent on disease prevalence. A result of ???Invalid?? indicates that neither the viral RNA targets nor the internal control target was detected. An invalid result suggests the presence of inhibitors. Recollection and re-testing is recommended in the case of an invalid result. CDC COVID-19 criteria for testing on human specimens and clinical management guidance information are available at the CDC Coronavirus Disease 2019 (COVID-19) webpage under ???Information for Healthcare Professionals?? (https://www.cdc.gov/coronavirus/2019-ncov/hcp/index.html) Additional information about this and other EUA tests can be found in provider and patient fact sheets at the following FDA website: https://www.fda.gov/medical-devices/zcgtzkvolip-ahdxpnr-1377-nvqfk-05-pneebbluh- nzv-nlnpjatopyellb-xyviouw-devices/kumge-vaxcympakla-ilfx SARS-Cov-2 RNA Source [employer] Swab Pertinent radiology/diagnostic studies: Xr Chest Pa & Lateral (generic) Result Date: 02/01/2020 EXAMINATION: XR CHEST PA AND LATERAL (GENERIC) CLINICAL HISTORY: fever, cough; eval acute process TECHNIQUE: PA and lateral views of the chest COMPARISON: None FINDINGS: The lungs are clear. No pleuraleffusion or pneumothorax. The cardiomediastinal silhouette, donald, and pulmonary vasculature are within normal limits. No significant osseous abnormalities. No acute cardiopulmonary pathology. I have personally reviewed the image(s) and the resident's interpretation and agree with the findings, Kalee Juarez MD at 02/01/2020 4:55 PM Thank you for letting us participate in the care of this patient. For questions regarding this report, please contact the number below. Inpatient Medications: ??? enoxaparin (LOVENOX) injection 40 mg ??? ceFEPime (MAXIPIME) 2g vial attach to sodium chloride 0.9% 100 mL Mini-Bag Plus ??? sodium chloride 0.9 % (flush) flush 5 mL ??? sodium chloride 0.9 % (flush) flush 5-20 mL ??? lidocaine (XYLOCAINE) 10 mg/mL (1 %) injection 3 mg ??? docusate sodium (Colace) capsule 100 mg ??? acetaminophen (Tylenol) tablet 650 mg ??? ondansetron (Zofran) tablet 4-8 mg OR ondansetron (ZOFRAN) injection 4-8 mg ??? melatonin tablet 3 mg Continuous Infusions: Scheduled Meds: ??? enoxaparin 40 mg Subcutaneous Nightly ??? ceFEPime 2 g Intravenous Q8H ??? sodium chloride 0.9 % (flush) 5 mL Intravenous BID ??? docusate sodium 100 mg Oral BID PRN Meds:.sodium chloride 0.9 % (flush), lidocaine, acetaminophen, ondansetron OR ondansetron, melatonin Javier Amaral 02/02/2020 1:15 PM [facility], [place]4 Pager #[phone] Team Pager #[phone] Please see the above note for details of the patient history of presentation, physical exam and data. I have discussed, reviewed and agree with the documented History, Physical findings, Assessment andPlan of care. The history and physical exam was repeated and confirmed personally by myself. Kyler Hurley MD 02/02/2020 6:09 PM documented in this encounter H&P Notes Myles Cruz MD - 02/01/2020 6:48 PM EDT Inpatient Hospital Medicine - Admission Note Problem List: There are no hospital problems to display for this patient. Active Non-Hospital Problems Diagnosis ??? Anemia ??? Disorder of thyroid gland ??? Arthritis ??? Tinnitus ??? Vitamin D deficiency ??? Osteoarthrosis ??? Malignant gastrointestinal stromal tumor (GIST) of small intestine ID: 59 y.o. Female presents to [facility] with fever and cough. History of Present Illness: The patient is a very pleasant 59-year-old with history of small bowel GIST who presented to the emergency room with fevers. The patient's history of present illness goes back about 6 days ago when feeling well. Her symptoms progressed over 3 days to include dry cough and myalgia. A fever of 101.2 wasreported. The patient went to see her primary care physician yesterday who did the COVID and Flu test. The PCP and her oncologist Referred her to the ED. Work-up in the emergency room included chest x-ray and a UA that was negative. The patient also had a COVID test that was negative yesterday. The EDphysician discussed the case with oncology. She was started on cefepime for broad-spectrum antibiotics. Blood cultures were also obtained. She has been taking the Gleevec since 12/30 based on the clinical notes and tolerating it well. Review of Systems: Review of Systems Constitutional: Positive for chills, fatigue and fever. HENT: Positive for sore throat. Respiratory: Positive for cough and shortness of breath. Negative for wheezing. Cardiovascular: Negative for chest pain and leg swelling. Gastrointestinal: Negative for abdominal distention and abdominal pain. Genitourinary: Negative for difficulty urinating and dysuria. Musculoskeletal: Positive for arthralgias. Negative for neck stiffness. Skin: Negative for rash and wound. Neurological: Negative for seizures and numbness. Psychiatric/Behavioral: Negative for agitation and behavioral problems. Past Medical and Surgical History: No past medical history on file. Past Surgical History: Procedure Laterality Date ??? PRO ENDOSCOPIC US EXAM, DAMIÁN N/A 11/25/2019 UPPER EUS- ENDOSCOPIC ULTRASOUND performed by Pedrito Arrieta MD at [facility] ENDOSCOPY Prior To Admission Medications: (Not in a hospital admission) Allergies: No Known Allergies Family History: No family history on file. Social History and Habits: Social History Socioeconomic History ??? Marital status: [...] Types: Cigarettes Quit date: 1994 Years since quittin.7 ??? Smokeless tobacco: Never Used ??? Tobacco [...] file Gets together: Not on file Attends synagogue service: Not on file Active member of club or organization: Not on file Attends meetings of clubs or organizations: Not on file Relationship status: Not on file ??? Intimate partner violence Fear of current or ex partner: Not on file Emotionally abused: Not on file Physically abused: Not on file Forced sexual activity: Not on file Other Topics Concern ??? Not on file Social History Narrative ??? Not on file Soc Hx:Divorces, lives in [place], [place] Tob - Quit in mid Etoh - none recently. 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 ?? Fam Hx: Father - at age 74, bleeding following colonoscopy. Had heart disease Mother - Alive, 81 yo, in good health Sibs - Brother of pancreatic cancer at age 47. Children - 3 sons, in good health Pat GF - pancreatic cancer Pat uncle - acute leukemia Mat GF - Liver cancer Immunizations: There is no immunization history on file for this patient. Physical Exam: Last Set of Vitals and range of vitals over past 24 hours: Last value Range last 24 hrs Temperature Temp: 37.3 ??C (99.1 ??F) Temp: [37.3 ??C (99.1 ??F)-39 ??C (102.2 ??F)] Heart Rate Heart Rate: 87 Heart Rate: [86-107] Blood Pressure BP: 98/54 BP: (96-111)/(54-59) Respiratory Rate Resp: 18 Resp: [15-19] SpO2 SpO2: 99 % SpO2: [99 %] Body mass index is 20.43 kg/m??. Physical Exam Constitutional: General: She is not in acute distress. HENT: Head: Normocephalic and atraumatic. Mouth/Throat: Pharynx: Oropharynx is clear. No oropharyngeal exudate. Eyes: General: No scleral icterus. Cardiovascular: Rate and Rhythm: Normal rate and regular rhythm. Pulmonary: Effort: Pulmonary effort is normal. No respiratory distress. Breath sounds: No wheezing or rales. Abdominal: General: Abdomen is flat. There is no distension. Tenderness: There is no abdominal tenderness. There is no guarding. Musculoskeletal: General: No swelling. Skin: General: Skin is warm and dry. Findings: No rash. Neurological: General: No focal deficit present. Mental Status: She is alert and oriented to person, place, and time. Coordination: Coordination normal. Psychiatric: Mood and Affect: Mood normal. Thought Content: Thought content normal. Laboratory (Last 24 Hours): Recent Results (from the past 24 hour(s)) Basic Metabolic Panel (non-fasting) Result Value Ref Range Glucose Lvl 103 65 - 199 mg/dL BUN 11 8 - 18 mg/dL Creatinine 0.51 (L) 0.70 - 1.20 mg/dL Sodium 136 135 - 145 mmol/L Potassium 3.2 (L) 3.5 - 5.0 mmol/L Chloride 100 98 - 107 mmol/L CO2 26 22 - 31 mmol/L Anion Gap 10 5 - 15 mmol/L Calcium 8.5 8.5 - 10.5 mg/dL eGFR 107 >=60 mL/min/1.73 m?? eGFR 124 >=60 mL/min/1.73 m?? Hepatic Function Panel Result Value Ref Range Total Protein 6.4 6.1 - 8.0 gm/dL Albumin 3.9 3.2 - 5.2 gm/dL AST 22 0 - 30 unit/L ALT 21 0 - 30 unit/L Alk Phos 57 35 - 105 unit/L Total Bilirubin 0.5 0.2 - 1.3 mg/dL Bili, Direct 0.2 0.0 - 0.3 mg/dL Hemogram Result Value Ref Range WBC Clotted 4.0 - 9.5 RBC Clotted 4.00 - 5.21 Hemoglobin Clotted 11.7 - 15.5 Hematocrit Clotted 35.7 - 45.8 MCV Clotted 82.6 - 94.4 MCH Clotted 27.1 - 32.0 MCHC Clotted 31.7 - 35.0 Platelets Clotted 145 - 357 RDWSD Clotted 37.0 - 46.0 RDWCV Clotted 11.5 - 14.1 MPV Clotted 7.6 - 12.9 nRBC % Auto Clotted nRBC Abs Auto Clotted 0.000 - 0.000 Blue Tube HOLD Result Value Ref Range Blue Hold Sample in lab. Urinalysis with reflex Culture Specimen: Urine Result Value Ref Range Glucose UA Negative Negative mg/dL Protein UA 100 (A) Negative mg/dL Bilirubin UA Negative Negative mg/dL Urobilinogen UA Normal Normal mg/dL pH UA 5.5 5.0 - 8.0 Blood UA Negative Negative mg/dL Ketones UA >=80 (CRIT) Negative mg/dL Nitrite UA Negative Negative Leukocytes UA Negative Negative mcL Appearance UA Clear Clear Spec [place]lett UA 1.029 1.006 - 1.030 Color UA Dark Yellow Yellow Culture Reflexed No Urinalysis Microscopic Exam Result Value Ref Range RBC UA 5 (H) 0 - 4 /HPF WBC UA 4 0 - 5 /HPF Squam Epith UA 4 <=4 /HPF Renal Epith UA <1 (H) <=0 /HPF Hyaline Cast UA 16 (H) 0 - 2 /LPF Microbiology: Blood Cultures: pending Urine Cultures: pending Radiology: Results for orders placed or performed during the hospital encounter of 02/01/20 XR Chest PA & Lateral (Generic) (Exam End: 02/01/2020 4:43 PM) Impression No acute cardiopulmonary pathology. I have personally reviewed the image(s) and the resident's interpretation and agree with the findings, Kalee Juarez MD at 02/01/2020 4:55 PM Thank you for letting us participate in the care of this patient. For questions regarding this report, please contact the number below. 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 Work-up so far has been unrevealing including COVID and Flu testing. Blood and urine cultures are pending. Started on Cefepime in the ED and will continue. Holding Gleevec on admission. Oncology to weigh in. Will involve ID if needed. Plan: ?? Admit to Hospital Medicine ?? Physical Therapy referral ?? Courtesy consult to Oncology ?? Will involve ID if the work-up is negative tomorrow. ?? Following her CBC ?? Neutropenic precautions ?? On broad spectrum antibiotic: Cefepime. ?? DVT Prophylaxis ?? If currently a smoker - advised about smoking cessation and will provide smoking cessation material and support. ?? Pneumovax and Influenza Immunizations given as needed. ?? Discussed Advanced Directives and Code Status. The patient wishesto be Full Code. A copy of this document will be sent to the patient's Primary Care Physician and/or Referring Physician. Myles Flor MD 02/01/2020 documented in this encounter ED Notes Dea Sutton RN - 02/01/2020 7:32 PM EDT 1924: Pt in bed, AOx4, breathing equal and unlabored, skin PWD. Friends at bedside. Pt updated on plan of care. Will return to assess. 2014: [facility] med MD at bedside, states he will be placing orders shortly 2055: Pt updated that bed is available on the floor, report will be called shortly. Pt is comfortable, no needs at this time. 2200: Pt in bed,reading, no acute distress noted. Thuy Gary RN - 02/01/2020 6:35 PM EDT DANIEL Onofre went in to change Patient's dressing,it started leaking after he ate, he was screaming when she started to take the tape off and hit her arm. So she stopped and let me know. Brea Saldana MD - 02/01/2020 5:24 PM EDT ED Resident Note Mary Kay Gonzalez is an 59 y.o. female who presents to the ED with: Chief Complaint Patient presents with ??? Cough ??? Fever I saw this patient on 02/01/2020. History is from the patient at the bedside. HPI Mary Kay Gonzalez is a 59 y.o. 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 Patient was in [facility] until six days ago when she first started to feel unwell. States the feeling wentaway until 3 days ago when she felt cold-like symptoms including a dry cough, myalgias, and runny nose. Upon taking her temperature, he discovered she had a fever of 101.2. Yesterday she was seen by her PCP, and blood work was performed. Today labs resulted and demonstrated an ANC of 80, and so she was advised to present to the emergency department. Tmax: last night 103F. Patient last took Tylenol 1000mg two hours ago around 4PM. COVID test negative yesterday. Patient states one of her sons had a cold last week. She has no recent history of any procedures, including dental work or bone marrow aspirations. She denies nausea, vomiting, chest pain, abdominal pain, back pain, urinary symptoms, hematuria, bloody stools, diarrhea, constipation, new sores or wounds, or sore throat. She endorses chronic shortness of breath. PMH: Anemia PSH: Past Surgical History: Procedure Laterality Date ??? PRO ENDOSCOPIC US EXAM, DAMIÁN N/A 11/25/2019 UPPER EUS- ENDOSCOPIC ULTRASOUND performed by Pedrito Arrieta MD at [facility] ENDOSCOPY Meds: No current facility-administered medications on file prior to encounter. Current Outpatient Medications on File Prior to Encounter Medication Sig Dispense Refill ??? UNABLE TO FIND Take 50 mg by mouth daily. Med Name: iron ??? MAGNESIUM CARBONATE ORAL Take 325 mg by mouth daily. ??? imatinib (GLEEVEC) chemo tablet Take 400 mg by mouth daily. Take with food and a large glass of water to decrease stomach irritation. Call clinic before starting medication. 30 Doses of treatment to dispense 5 ??? omeprazole (PriLOSEC) 40 mg Capsule, Delayed Release(E.C.) 40 mg Daily. ??? cholecalciferol, Vitamin D3, 50 mcg (2,000 unit) Capsule Take 2,000 Units by mouth. Allergies: No Known Allergies FH: No family history on file. SH: Social History Socioeconomic History ??? Marital status: [...] Types: Cigarettes Quit date: 1994 Years since quittin.7 ??? Smokeless tobacco: Never Used ??? Tobacco [...] file Gets together: Not on file Attends synagogue service: Not on file Active member of club or organization: Not on file Attends meetings of clubs or organizations: Not on file Relationship status: Not on file ??? Intimate partner violence Fear of current or ex partner: Not on file Emotionally abused: Not on file Physically abused: Not on file Forced sexual activity: Not on file Other Topics Concern ??? Not on file Social History Narrative ??? Not on file Review of Systems: Review of Systems Constitutional: Positive for fever. Negative for appetite change. HENT: Negative for sore throat. Respiratory: Positive for cough. Negative for shortness of breath. Cardiovascular: Negative for chest pain. Gastrointestinal: Negative for abdominal pain, blood in stool, diarrhea, nausea and vomiting. Genitourinary: Negative for difficulty urinating, dysuria, flank pain and hematuria. Musculoskeletal: Negative for back pain. Skin: Negative for pallor and rash. Allergic/Immunologic: Positive for immunocompromised state. Psychiatric/Behavioral: Negative for confusion. Physical Exam: Nursing note and vitals reviewed. Patient Vitals for the past 24 hrs: BP Temp Temp src Pulse Resp SpO2 Weight 02/01/20 1539 111/57 (!) 39 ??C (102.2 ??F) Oral (!) 107 18 99 % 52.6 kg (116 lb) GEN: No acute distress. Sitting up, comfortable. HEENT: NCAT. PERRL. Oropharynx clear, pink, and moist. PULM: No resp distress. No increased work of breathing. CTAB. CV: Normal rate. Regular rhythm. No murmur appreciated. ABD: Soft, nondistended, nttp. MSK: No gross deformities. NEURO: AAOx3. EOMI. No gross CN deficits. Light touch intact face & body. Moves extremities equally. PSYCH: Normal mood and thought pattern. SKIN: Warm, dry. No rashes. No ports, catheters. ED Course: - Patient seen under the supervision of the attending physician. - Medications, allergies, and past medical history reviewed. Recent Results (from the past 24 hour(s)) Hemogram Result Value Ref Range WBC 1.6 (CRIT) 4.0 - 9.5 x10(3)/mcL RBC 4.09 4.00 - 5.21 x10(6)/mcL Hemoglobin 11.3 (L) 11.7 - 15.5 gm/dL Hematocrit 34.2 (L) 35.7 - 45.8 % MCV 83.6 82.6 - 94.4 fL MCH 27.6 27.1 - 32.0 pg MCHC 33.0 31.7 - 35.0 gm/dL Platelets 175 145 - 357 x10(3)/mcL RDWSD 56.8 (H) 37.0 - 46.0 fL RDWCV 18.7 (H) 11.5 - 14.1 % MPV 11.3 7.6 - 12.9 fL nRBC % Auto 0.0 % nRBC Abs Auto 0.000 0.000 - 0.000 x10(3)/mcL Blue Tube HOLD Result Value Ref Range Blue Hold Sample in lab. ED Course as of Jan 31 1831 Tue Feb 01, 2020 1734 IMPRESSION No acute cardiopulmonary pathology. XR Chest PA & Lateral (Generic) 1738 WBC 1.6 1807 Temp(!): 39 ??C (102.2 ??F) 1807 Heart Rate(!): 107 1811 Temp: 37.3 ??C (99.1 ??F) 1813 Heart Rate: 87 1813 UA not c/w UTI 182 HFTs WNL BMP s/f mild hypokalemia 1824 Onc FYI'ed, solid tumor admission hospital medicine Assessment and Plan: CARLOS Gonzalez is a 59 y.o. 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 Assessment & Plan: Given patient's history of small bowel GIST on chemotherapy, in combination of laboratory finding ofANC 80, patient's presentation is c/w neutropenic fever. Started patient on cefepime, and pursued workup for fever of unknown origin including BCx2, CBC, BMP, UA, CXR. Onc team FYI'ed. Dispo: Admitted to Hospital Medicine. Brea Saldana MD PGY-1 [facility] Emergency Medicine Brea Saldana MD Resident 02/02/20 0131 Associated attestation - Dandre Teixeira MD - 02/02/2020 11:19 AM EDT ED ATTENDING ATTESTATION The patient was seen [...] and plan as described in the resident's note. Did this case involve critical care? No Tadeo Carpenter APRN - 02/01/2020 3:46 PM EDT Brief Provider Triage Note 59 y.o. female presents to the emergency department with fever, cough. On chemo for GIST. Sent in from PCP. WBC 3.8, ANC 2.29. Negative COIVD yesterday. Endorses flu-like sx. Brief focused physical exam notable for alert NAD. Gait steady. BP 111/57 (Patient Position: Sitting) Pulse (!) 107 Temp (!) 39 ??C (102.2 ??F) (Oral) Resp 18 Wt 52.6 kg (116 lb) SpO2 99% BMI 20.43 kg/m?? Plan: Labs, CXR and U/A with reflex culture Patient requires further evaluation, diagnosis and management in the emergency department. Tadeo Carpenter APRN 02/01/20 1548 documented in this encounter Miscellaneous Notes Consult Note - Elizabeth Mclaughlin MD - 02/04/2020 9:25 AM EDT GASTROENTEROLOGY & HEPATOLOGY CONSULTATION Initial Consult Note Requesting Provider: Kyler Hurley MD REASON FOR CONSULTATION Necrotic GIST HISTORY OF PRESENT ILLNESS Mary Kay Gonzalez is a 59 y.o. female with PMHx significant for duodenal GIST tumor who was admitted for neutropenic fever. GI is consulted for concern if necrotic tumor requiring drainage for ?abscess. Patient diagnosed with GIST earlier this year; underwent endoscopy which showed a duodenal ulcer that did not improve with medical management (omeprazole and carafate). CT was then notable for pancreatic head mass; EUS FNB revealed GIST. Due to the size of the mass, she was recommended to receive neoadjuvant imatinib for 4 months in order to have make the mass more resectable with Whipple, now pending. She remains on imatinib but in the last few days before admission, patient endorsed flu-like symptoms with F to 103; denies abdominal pain, dysuria, SOB, KNIGHT. Repeat CT on admission notes similar appearing mass with central low-attenuation suggestive of necrosis. Her infectious workup has otherwise been unremarkable; blood cx NGTD. Given this questions of intra-tumor necrosis vs ?abscess, a questions was posed to drain this source with a trans- duodenal approach. She has remained afebrile, HDS since admission. Neutropenia continues to improve, ANC 500 this morning. ROS: 10 systems reviewed and positive for those in HPI, otherwise negative PAST MEDICAL/SURGICAL HISTORY: Past Medical History: Diagnosis Date ??? Arthritis ??? Cancer MEDICATIONS ??? zinc sulfate 220 mg Oral Daily ??? piperacillin-tazobactam 3.375 g Intravenous Q8H ??? enoxaparin 40 mg Subcutaneous Nightly ??? valACYclovir 1,000 mg Oral BID ??? sodium chloride 0.9 % (flush) 5 mL Intravenous BID ??? docusate sodium 100 mg Oral BID iohexoL, sodium chloride 0.9 % (flush), lidocaine, acetaminophen, ondansetron OR ondansetron, melatonin ALLERGIES No Known Allergies SOCIAL HISTORY Social History Socioeconomic History ??? Marital status: [...] Types: Cigarettes Quit date: 1994 Years since quittin.7 ??? Smokeless tobacco: Never Used ??? Tobacco [...] file Gets together: Not on file Attends synagogue service: Not on file Active member of [...] Social History Narrative ??? Not on file FAMILY HISTORY History reviewed. No pertinent family history. Vitals: 02/03/20 1632 02/03/20 1711 02/04/20 0130 02/04/20 0851 BP: 127/70 97/60 102/60 BP Location (NBP): Right arm Right leg Right arm Patient Position: Sitting Lying Sitting Pulse: Resp: 16 16 16 Temp: 37.4 ??C (99.3 ??F) 37.8 ??C (100 ??F) 36.9 ??C (98.4 ??F) 37.2 ??C (99 ??F) TempSrc: Oral Oral Oral Oral SpO2: 99% 96% 97% Weight: Height: PHYSICAL EXAM GENERAL: No acute distress, alert and oriented HEENT: AT/NC, sclerae anicteric, moist mucous membranes CHEST: CTA CARDIAC: RRR, normal S1/S2, no appreciable murmurs ABDOMEN: Soft, normoactive bowel sounds, non-tender, non-distended. Central fullness, no erythema orwarmth. EXT: Warm, no edema NEURO: Grossly intact, moves all extremities, no asterixis SKIN: No jaundice LABS: Lab Results Component Value Date Sodium 140 02/04/2020 Potassium 3.9 02/04/2020 Chloride 106 02/04/2020 CO2 26 02/04/2020 BUN 6 (L) 02/04/2020 Creatinine 0.41 (L) 02/04/2020 Glucose Lvl 99 02/04/2020 CBC Lab Results Component Value Date WBC 3.2 (L) 02/04/2020 Hemoglobin 10.2 (L) 02/04/2020 Hematocrit 32.1 (L) 02/04/2020 Platelets 219 02/04/2020 LFT's No results found for: ALKPHOS, AST, ALBUMIN, BILIDIR, BILITOT, ALT, PROT IMAGING: Reviewed in e[facility] 02/02/2020 IMPRESSION ?? 1. Similar overall size of large mass involving the stomach proximal duodenum with some interval thinning of the enhancing wall and interval mild increase in the central low-attenuation suggesting additional interval necrosis. 2. Small amount of free fluid projecting in the cul-de-sac 3. No organized collection. 4. Mild interval increase in intraventricular and extrahepatic bile duct dilatation. ENDOSCOPY: Reviewed in e[facility] 11/25/2019 EUS ??6 cm mass in the region of the ?pancreas head that may actually be ?arising from the duodenal wall and ?may represent a GIST or sarcoma, less ? likely a neuroendocrine tumor or ?adenocarcinoma-s/p FNB. ?- ERCP deferred as the bile duct is ?extrinsically compressed but not ?clearly obstructed yet, and LFTs are ?normal. IMPRESSION: Mary Kay Gonzalez is a 59 y.o. female with PMHx significant for duodenal GIST tumor who was admitted for neutropenic fever. GI is consulted for concern if necrotic tumor requiring drainage for ?abscess. At this time it is unclear what the true source of her fever is but leading differential is her necrotic mass; with her upcoming Whipple, GI is now consulted to assess for trans-duodenal drainage to target this potential source. Reassuringly she remains afebrile, asymptomatic with mounting WBC on this admission. Imaging reviewed with Dr. Arrieta, Dr. Mclaughlin. At this time, would defer endoscopic intervention given limited benefits this would add given the central necrosis seen on CT. No clear abscess would be effectively drainable from a trans-duodenal approach. She remains on Zosyn, which if her unidentified infection is coming from her tumor, may be efficacious alone with antibiotics. RECOMMENDATIONS: -continue Zosyn for empiric management of neutropenic fever. Okay to transition to ciprofloxacin/metronadazole for 10-14 day course. -Reviewed imaging as above re:?trans-duodenal drainage. Defer endoscopic intervention, appreciate Surg Onc recs. -Please page GI if questions arise. We will sign off at this time. The plan as outlined above was discussed with Dr. Mclaughlin. Magali Chairez M.D. Fellow in Gastroenterology and Hepatology Pager #[phone] 02/04/2020 ATTENDING ATTESTATION: I have seen and evaluated the patient with Dr. Chairez. I have reviewed the fellow's history during theencounter and I agree with the details as written above. My physical examination confirms the above findings. The assessment and plan were formulated in discussion with me at the time of the encounter and I agree with them as documented. We discussed the case with the patient's surgeon, Dr. Galdamez and also reviewed the imaging with patient's advanced endoscopist, Dr. Arrieta. There would be little benefit at this time to attempting endoscopic drainage as she is responding well to antibiotics and theremay already be a fistulous track to the GI lumen since the tumor arises in the duodenal wall. Furthermore, it may not be technically feasible as the necrotic mass is unlikely to drain. There is also risk of bleeding with these vascular tumors. If patient has ongoing fevers despite antibiotics and no other source of infection is found, GI can be re-engaged for further discussion. Otherwise, she shouldfollow- up with her oncologist and surgical oncologist for timing of Whipple. Elizabeth Mclaughlin MD Gastroenterology attending Pager [phone] Plan of Care - Tiera Ware, RN - 02/04/2020 4:57 AM EDT Problem: Patient Care Overview Goal: Plan of Care Review Outcome: Ongoing (Interventions Implemented as Appropriate) 02/03/20194802/03/202131 Plan of Care Review Progress progress toward functional goals as expected -- Coping/Psychosocial Plan Of Care Reviewed With -- patient OUTCOME EVALUATION NOTE: ?? OUTCOME SUMMARY: ?? VSS. Afebrile. Continues on IV abx and neutropenic precautions. No n/v. Drinking well at bedside. Denies any other issues. Will continue to monitor,notify MD of changes. ?? PLAN MOVING FORWARD: ?? Monitor vs and labs Continue IV abx Cultures pending ?? INDIVIDUALIZED FALL PREVENTION INTERVENTIONS: ?? Patient-specific fall risk factors per assessment: [current deficits]:?Med fall risk, steady on feet, rings appropriately ? Assistance [level of assistance required for transfers and ambulation]:?independent ?? Supervision [direct monitoring required during toileting and ADLs]:?independent ?? Surveillance [continuous indirect monitoring]:?Hourly rounding, call encinas within reach, masimo, bed alarm set ?? Patient-specific fall prevention interventions for sensory deficits provided, if applicable:?N/A ? CPG GOAL OUTCOME EVALUATION:? Plan of Care - Iron Tovar RN - 02/03/2020 7:56 PM EDT Problem: Patient Care Overview Goal: Plan of Care Review Outcome: Ongoing (Interventions Implemented as Appropriate) 02/03/201948 Plan of Care Review Progress progress toward functional goals as expected Coping/Psychosocial Plan Of Care Reviewed With patient OUTCOME EVALUATION NOTE: OUTCOME SUMMARY: A&Ox4. VSS ex T max 38.5, Tylenol administered with positive effect. Endorses dry cough. Denies pain, SOB, nausea, chest pain. IV ABX administered per JUL, education provided regarding switch to Zosyn. Fair appetite. Voided adequately, BM x1 today. Replenished potassium, see JUL. Respiratory PCR sent. Ambulated in quispe x1. PLAN MOVING FORWARD: Monitor labs, vitals, I/O Fever management IV ABX Surgery consult INDIVIDUALIZED FALL PREVENTION INTERVENTIONS: Patient-specific fall risk factors per assessment: [current deficits]: Med Fall Risk- IV infusing intermittently, new environment, masimo Assistance [level of assistance required for transfers and ambulation]: IND Supervision [direct monitoring required during toileting and ADLs]: IND Surveillance [continuous indirect monitoring]: Purposeful hourly rounding, call encinas within reach, room near unit station, Masimo Patient-specific fall prevention interventions for sensory deficits provided, if applicable: [X] N/A CPG GOAL OUTCOME EVALUATION: Goal: Individualization & Mutuality Outcome: Ongoing (Interventions Implemented as Appropriate) 02/03/20 194 Mutuality/Individual Preferences What Anxieties, Fears or Concerns Do You Have About Your Health or Care? Financial, surgery Goal: Fall Prevention-Safe Patient Handling Outcome: Ongoing (Interventions Implemented as Appropriate) 02/03/2091002/03/20 1103 Riggins Fall Risk History of Falling 0 -- Secondary Diagnosis 15 -- Ambulatory Aids 0 -- Intravenous Therapy/Heparin/Saline Lock 20 -- Gait/Transferring 0 -- Mental Status 0 -- Score 35 -- OTHER Riggins Fall Risk Med -- Restraint Interventions Safety Promotion/Fall Prevention nonskid shoes/slippers when out of bed;safety round/check completed;fall prevention program maintained;muscle strengthening facilitated -- Positioning Body Position independent -- Activity Activity Type -- activity adjusted per tolerance;ambulated in quispe Activity Assistance Provided -- independent Assistive Device Utilized -- none Goal: Infection Control Outcome: Ongoing (Interventions Implemented as Appropriate) 02/03/2090402/03/20910 Safety Interventions Isolation Precautions -- protective environment maintained (neutropenic) Infection Prevention -- single patient room provided;rest/sleep promoted;personal protective equipment utilized;environmental surveillance performed Coping Strategies Supportive Measures active listening utilized;goal setting facilitated;problem solving facilitated;self-care encouraged;self-reflection promoted;self- responsibility promoted;verbalization of feelings encouraged -- Goal: Discharge Needs Assessment Outcome: Ongoing (Interventions Implemented as Appropriate) 02/03/20 0515 02/03/201948 Discharge Needs Assessment Concerns To Be Addressed -- financial/insurance concerns Readmission Within The Last 30 Days no previous admission in last 30 days -- Equipment Needed After Discharge -- none Discharge Disposition still a patient -- Living Environment Transportation Available car;family or friend will provide -- Goal: Interdisciplinary Rounds/Family Conf Outcome: Ongoing (Interventions Implemented as Appropriate) 02/03/201948 Interdisciplinary Rounds/Family Conf Participants physician;patient;pharmacy;nursing Consult Note - Emely Galdamez MD - 02/03/2020 6:22 PM EDT Surgical Oncology Consultation Note Date of Consultation: 02/03/2020 Purpose for Consultation: GIST tumor HPI: Mary Kay Gonzalez is a 59 y.o. female with PMHx significant for duodenal GIST tumor who was admitted to the hospital for new onset fevers. Mrs. Frost had noticed intermittent dark stools since Spring 2019 and she was found to have a hemoglobin of 8.5 at [facility] ED. During this time, she had no abdominal pain, diarrhea or symptoms other than her dark stools. She underwent endoscopy which showed a duodenal ulcer that did not improve with medical management (omeprazole and carafate). After this she received a CT which showed a large mass in the pancreas head compressing the duodenum and CBD. She wasreferred to [facility] for an EUS biopsy which showed a 6 cm mass in the pancreatic head arising from the d uodenal wall. 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 Due to the size of the mass, she was recommended to receive neoadjuvant imatinib for 4 months in order to have make the mass more resectable. Theplan was to perform a whipple after completion of her neoadjuvant therapy. She began imatinib on 01/01/20 and was tolerating it well without any side effects up to 01/25 (with aANC of 2.29). On Monday 01/29, she began to have flu like symptoms with cough, weakness, myalgias andsoreness in her legs and back as well as fever to 103degF at home. She was seen by her PCP on 01/31 and found to have a WBC of 3.8 (ANC of 80) and fever of 102.2 so she was sent to the ED. Her CXR, UA, and COVID test were negative. She was started on cefepime for FUO/Neutropenic fever and valacyclovir for potential oral herpetic lesion as source of her fevers. A respiratory virus panel and blood cultures were negative. A CT of her abdomen demonstrated an increased area of hypoattenuation in the duodenal GIST since her initial CT in November with some free fluid collections in the pouch of rich and interval increase in bile duct dilatation. Due to the concern for an abscess formation within the GIST or worsening necrosis as the cause of her symptoms, surgical oncology was consulted. ROS: She reports that she has a normal appetite but feels chills and fever currently. She has had no abdominal pain or diarrhea. She also has not had any dark or tarry stools for the past 3 months. She has had a non-productive cough but no sore throat. She endorses a headache that has worsened since the onset of her symptoms. She has not noticed any new rashes or oral lesions except for the herpetic lesion on her lip. She has a dog at home and her son recently had a cold in the past week that he has since recovered from. Family Hx: Brother who from pancreatic cancer, paternal grandfather with pancreatic cancer, maternal grandfather with liver cancer,. Social Hx: [place], [place]. Immigrant from [place] since 2001. 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 . Quit smoking in , drank alcohol 3x/week. Past Medical History: Patient Active Problem List Diagnosis Date Noted ??? Neutropenic fever 02/01/2020 ??? Anemia 12/07/2019 ??? Disorder of thyroid gland 12/07/2019 ??? Arthritis 12/07/2019 ??? Tinnitus 12/07/2019 ??? Vitamin D deficiency 12/07/2019 ??? Osteoarthrosis 12/07/2019 ??? Malignant gastrointestinal stromal tumor (GIST) of small intestine 12/04/2019 Past Medical History: Diagnosis Date ??? Arthritis ??? Cancer Past Surgical History: Past Surgical History: Procedure Laterality Date ??? PRO ENDOSCOPIC US EXAM, ESOPH N/A 11/25/2019 UPPER EUS- ENDOSCOPIC ULTRASOUND performed by Pedrito Arrieta MD at [facility] ENDOSCOPY Medications: Outpatient Medications Marked as Taking for the 02/01/20 encounter (Hospital Encounter) Medication Sig Dispense Refill ??? ferrous sulfate (IRON ORAL) Take 50 mg by mouth. Actually chelated amino acid Iron ??? MAGNESIUM CARBONATE ORAL Take 325 mg by mouth daily. ??? imatinib (GLEEVEC) chemo tablet Take 400 mg by mouth daily. Take with food and a large glass of water to decrease stomach irritation. Call clinic before starting medication. 30 Doses of treatment to dispense 5 ??? omeprazole (PriLOSEC) 40 mg Capsule, Delayed Release(E.C.) 40 mg Daily. ??? cholecalciferol, Vitamin D3, 50 mcg (2,000 unit) Capsule Take 2,000 Units by mouth. Allergies: No Known Allergies Physical Exam: BP 127/70 (BP Location (NBP): Right arm, Patient Position: Sitting) Pulse 86 Temp 37.8 ??C (100 ??F) (Oral) Resp 16 Ht 159 cm (5' 2.6) Wt 52.9 kg (116 lb 10 oz) SpO2 99% BMI 20.93 kg/m?? General Appearance: Alert, cooperative, no distress, appears stated age, non- toxic, conversant HEENT: PERRL, MMM, faint scleral icterae, faint sublingual and palatal jaundice Neck: Supple, symmetrical, trachea midline, no cervical, occipital, supraclavicular adenopathy; thyroid: not enlarged, symmetric, no tenderness/mass/nodules; Lungs: Clear to auscultation bilaterally, respirations unlabored, no wheezes, crackles or ronchi. Heart: Regular rate and rhythm, S1 and S2 normal, no murmur, rub, or gallop Abdomen: Soft, non-tender, bowel sounds normo-active in all four quadrants, no masses, no organomegaly, some guarding, non-distended Extremities: Extremities normal, no cyanosis, clubbing. no edema Neurologic: A+Ox3, EOMI, PK, cranial nerves II-XII, full strength upper and lower extremities Skin: No lesions or rashes CXR (02/01/20): No acute cardiopulmonary pathology. CT Chest (02/02/2020): 1. Similar overall size of large mass involving the stomach proximal duodenum with some interval thinning of the enhancing wall and interval mild increase in the central low-attenuation suggesting additional interval necrosis. 2. Small amount of free fluid projecting in the cul-de-sac 3. No organized collection. 4. Mild interval increase in intraventricular and extrahepatic bile duct dilatation. Micro: Blood cultures NGTD Respiratory Panel Negative Assessment: Mary Kay Gonzalez is a 59 y.o. female with PMHx significant for GIST tumor on induction imatinib admitted for neutropenic fever. It appears that her drop in WBC with reduced ANC and ALC has been sudden as they were relatively Normal on 01/25 with ANC of >2000 and ALC of 1,100 then and todaywith an ANC of 40 and ALC of 800. She also has had exposure to a sick contact recently. It is highlyprobable that her current symptoms are due to a profound neutropenic fever with ANC <100 she qualifies as high risk. It's possible that this is due to a viral exposure from her son (most viral infections are not represented on the hospital viral respiratory panel) or an endogenous bacterial source.It is also possible that this is a side effect of imatinib of which fevers and URI symptoms have been reported in up to 14%% of patients receiving the medication. Though the CT scan shows increasing central low-attenuation of the mass and this may be due to an abscess in the GIST, this hypoattenuationwas present in her scan in November as well and may instead represent sterile necrosis of the tumor. It is possible that this change in the CT is not related to her current symptoms. If it does represent an abscess, it should not be drained externally/through surgery as this may disseminate her infection.We recommend consulting GI about draining the tumor in a less invasive method. Recommendations: 1. Maintain piperacillin-tazobactam 2. Consult GI for drainage of potential GIST tumor abscess 3. All other plans per primary team Forest Paez 02/03/2020 Medical Student (pager [phone]) [facility] Surgery Attending Addendum I have seen and examined Mary Kay this am. I have reviewed the laboratory data.?My exam is unchanged from Forest's note above. The assessment and plan were formulated in discussion with me and I agree with them as documented. 20 minutes of this 25-minute inpatient consultation was spent in direct [id number] discussion withMary Kay and her friend Fernando. I have reviewed the CT images from the most recent CT abdomen pelvis dated 02/02/2020. Since admission she is fortunately showing no signs of ongoing sepsis and the cefepime antibiotics was changed to Zosyn per ID recommendations. All the blood cultures have so far been negative. She otherwise feels well and would like to try to eat though she is n.p.o. for anticipated possible endoscopy procedure today. I explained that her complication of neutropenia presumably from the imatinib is extremely rare and in fact I have never seen this before. This is almost certainly driving the symptoms of fever in the setting of the neutropenia and based on all the work-up so far the only culprit is likely the necrotic GIST duodenal tumor that compared with the prior imaging at the time of diagnosis and even after only 3 to 4 weeks of imatinib treatment has become more necrotic within the central aspect of the tumorwith fluid and now a small air bubble. We discussed how the mainstay of treatment for a tumor abscess is antibiotic and drainage and then resection. I am reluctant to recommend resection given her ongoing neutropenia and would prefer to see if GI feels that an EUS directed transduodenal drain placement would be feasible to facilitate endoscopic drainage, obtain cultures of the necrotic tumor abscess to guide antibiotic therapy and then allow some time to elapse for this abscess to heal before considering a Whipple procedure. I spoke to Dr. Dozier, her oncologist, and he is very reluctant to resume imatinib given the neutropenia complication which seems very reasonable. When I was speaking with Mary Kay this morning the GI inpatient consult team was rounding and Dr. Mclaughlin and I spoke briefly about the situation. They will ask Dr. Arrieta to weigh in as to whether an EUS directed drain placementis technically feasible. I suspect that this will not be performed today or over the weekend as she is showing no signs to make this in the emergent procedure and that hopefully this could be electively scheduled for early next week? Mary Kay and her friend-Fernando had ample opportunity to ask questions and participate in this relatively complex decision-making process with regard to how best to manage this tumor abscess in the context of needing the Whipple surgery. Reid Galdamez MD 02/04/2020 9:54 AM This note was created using [employer] voice recognition software. Consult Note - Morris Dozier MD - 02/03/2020 4:31 PM EDT Images from the original note were not included. NEW ONCOLOGY CONSULT Reason for consult: We are seeing Mary Kay Gonzalez at the request of Dr. Hurley to evaluate for Neutropenic fever . Referral Source: HPI: This patient is a 59 y.o. 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 She persisted to have fevers for 2 days prior to admission and has continued to have fevers intermittently while here. At [facility] she was found to be extremely neutropenic, ANC 10. Her infectious work-up has been negative so far including chest x-ray, UA, and blood cultures. CT abdomen pelvis was completed on 02/02/2020 which demonstrated her known large mass and mild increase of necrosis. Today, Mary Kay states she feels okay, stating she still has fevers but is getting bored sitting in bed. She states she is an active person at baseline so staying indoors all the time and staying in bed has been difficult for her. She denies any recent infections, nausea, vomiting, abdominal pain, symptoms of UTI, dizziness, lightheadedness. ROS: Other ROS reviewed and except as stated in HPI, are negative Relevant risk factors or Oncology History: 1. GIST, small bowel A. EGD 06/2019 due to anemia showed ulcer involving the second portion of the duodenum. Started on PPI and carafate but had persistent bleeding. ?? Abd US 11/17/19 - IMPRESSION: Apparent large left lobe liver mass. CT recommended.? CT abd/pelvis 11/22/19 - IMPRESSION: A large [...] GI referral for possible endoscopic ultrasound-guided tissue sampling.? B. 11/25/19 - Upper EUS - Impression: [...] of resection specimen. Molecular studies - KIT [id number] del, exon 11 ?? C. Discussed at GI Tumor Board on 12/07/19. The recommendation was for molecular studies. Depending on findings, consider pre-operative imatinib. Recommend baseline PET scan and short term f/u PET scan toestablish activity. ?? D. PET scan 12/29/19 - IMPRESSION 1. ??Unchanged size of a large heterogeneously FDG avid, centrally necrotic mass extending inferiorly from the korin hepatus, consistent with biopsy-proven GI stromal tumor. 2. ??No alexis metastasis. 3. ??No distant metastasis. E. Began therapy with imatinib on 01/01/20, 400 mg/day Past Medical History: Past Medical History: Diagnosis Date ??? Arthritis ??? Cancer Past Surgical History: Past Surgical History: Procedure Laterality Date ??? PRO ENDOSCOPIC US EXAM, ESOPH N/A 11/25/2019 UPPER EUS- ENDOSCOPIC ULTRASOUND performed by Pedrito Arrieta MD at [facility] ENDOSCOPY Family History: History reviewed. No pertinent family history. Social History: Social History Tobacco Use ??? Smoking status: Former Smoker Packs/day: 0.50 Types: Cigarettes Quit date: 1994 Years since quittin.7 ??? Smokeless tobacco: Never Used ??? Tobacco comment: never vape Substance Use Topics ??? Alcohol use: Not Currently Comment: none since 05/12/2019 ??? Drug use: Never Physical Examination BP 113/64 (BP Location (NBP): Right arm, Patient Position: Sitting) Pulse 86 Temp 36.6 ??C (97.9??F) (Oral) Resp 16 Ht 159 cm (5' 2.6) Wt 52.9 kg (116 lb 10 oz) SpO2 99% BMI 20.93 kg/m?? Gen: well-developed, well-nourished, sitting up in bed, NAD Skin: warm and dry, no suspect rashes or lesions HEENT: NC/AT, Conjunctiva clear, sclera anicteric Chest: CTA Bilat, no wheezes, rales Cardiac: RRR, nl s1 s2, no appreciable M/R/G Abdomen: Soft, ND/NT, normoactive BS, no rebound or guarding, Extremities: No edema Neuro: No gross deficits Diagnostic evaluation Labs: Recent Labs 02/03/2045702/02/2044902/01/20 1809 WBC 2.4* 2.1* 1.6* HGB 10.3* 10.2* 10.6* HCT 30.7* 31.9* 31.4* PLATELET 184 150 160 NEUTROABS 0.04* 0.01* -- Recent Labs 02/03/2045702/02/2044902/01/20 1625 NA 139 138 136 K 2.9* 3.3* 3.2* CL 102 103 100 CO2 27 24 26 BUN 6* 12 11 CREATININE 0.42* 0.47* 0.51* GLUCOSE 107 93 103 Recent Labs 02/03/2045702/02/2044902/01/20 1625 CALCIUM 8.3* 8.6 8.5 Recent Labs 02/03/2045702/01/20 1625 AST 25 22 ALT 23 21 ALKPHOS 53 57 BILITOT 0.3 0.5 BILIDIR 0.1 0.2 No results for input(s): INR, PT, PTT in the last 72 hours. No results for input(s): LDH, URICACID in the last 168 hours. Estimated Creatinine Clearance: 120.1 mL/min (A) (based on SCr of 0.42 mg/dL (L)). Recent Labs 02/03/2045702/02/2044902/01/20 1625 K 2.9* 3.3* 3.2* Radiographic Evaluation CT Abdomen & Pelvis w Contrast Final Result 1. Similar overall size of large mass involving the stomach proximal duodenum with some interval thinning of the enhancing wall and interval mild increase in the central low-attenuation suggesting additional interval necrosis. 2. Small amount of free fluid projecting in the cul-de-sac 3. No organized collection. 4. Mild interval increase in intraventricular and extrahepatic bile duct dilatation. Thank you for letting us participate in the care of this patient. For questions regarding this report, please contact the number below. Chest PA & Lateral (Generic) Final Result No acute cardiopulmonary pathology. I have personally reviewed the image(s) and the resident's interpretation and agree with the findings, Kalee Juarez MD at 02/01/2020 4:55 PM Thank you for letting us participate in the care of this patient. For questions regarding this report, please contact the number below. Pathology Evaluation Assessment: Mary Kay Gonzalez is 59 y.o. 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 As stated, the work-up so far has been negative for infection, though the CT scan is concerning for possible area of abscess/necrosis that may be an inciting factor. The etiology of her neutropenia is puzzling, though imatinib can rarely lead to agranulocytosis. Given her continued fevers, I am concerned that there may be an infectious process superimposed on her mass. It is reassuring that her whitecount is slowly recovering, ANC 40 today. Though we were hoping that imatinib in the neoadjuvant setting could shrink her tumor prior to surgical intervention, I worry that may not be possible now given her response to imatinib and this new CTfinding. Dr. Dozier briefly spoke with Dr. Galdamez today, who suggested surgical intervention may be needed sooner than hoped. Recommendations: -Consult surgery (Dr. Galdamez) for potential surgical intervention -Continue antibiotics, ensuring for anaerobic coverage -Discontinue imatinib for the time being Thank you for this consult. The patient was seen and discussed with attending, Dr. Tasia Layne MD Hematology/Oncology Fellow Pager [phone] 02/03/20 Oncology attending addendum: Patient seen and discussed with Dr. Layne. Agree with history and plan as noted above. Although rare, there are reports of neutropenia/agranulocytosis with imatinib and this appears to be the most likely cause, potentially exacerbated by the infectious process. The source of the fever is not clear but in the absence of other sources, I am concerned that the necrotic mass related to the GIST may be the source. As noted, we had been hoping to continue the imatinib as neoadjuvant therapy for a longer period in hopes of decreasing the size. Given the current events, I think we need to consider surgerysooner rather later, both because it is not clear that we will be able to safely restart the imatinib and because of the concern for infection. I spoke with Dr. Galdamez from Surgical Oncology and he willsee her to discuss. Plan of Care - Tiera Ware RN - 02/03/2020 5:20 AM EDT Problem: Patient Care Overview Goal: Plan of Care Review Outcome: Ongoing (Interventions Implemented as Appropriate) 02/02/20 0208 02/02/20 2100 Plan of Care Review Progress progress towards functional goals is fair -- Coping/Psychosocial Plan Of Care Reviewed With -- patient OUTCOME EVALUATION NOTE: ?? OUTCOME SUMMARY: ?? VSS. Febrile x1 (tmax 38.4) this AM. MD notified. STAT blood cultures ordered and drawn. Continues on IV abx and neutropenic precautions. Pt went down for CT abd and pelvis last evening after tolerating the 3 hour long prep. No n/v. Drinking well at bedside. Denies any other issues. Will continue to monitor, notify MD of changes. ?? PLAN MOVING FORWARD: ?? Monitor vs and labs Continue IV abx Cultures pending ?? INDIVIDUALIZED FALL PREVENTION INTERVENTIONS: ?? Patient-specific fall risk factors per assessment: [current deficits]: Med fall risk, steady on feet, rings appropriately ?? Assistance [level of assistance required for transfers and ambulation]: independent ?? Supervision [direct monitoring required during toileting and ADLs]: independent ?? Surveillance [continuous indirect monitoring]: Hourly rounding, call encinas within reach, masimo, bed alarm set ?? Patient-specific fall prevention interventions for sensory deficits provided, if applicable: N/A ? CPG GOAL OUTCOME EVALUATION: ?? Goal: Individualization & Mutuality Outcome: Ongoing (Interventions Implemented as Appropriate) 02/01/20 2243 Mutuality/Individual Preferences What Anxieties, Fears or Concerns Do You Have About Your Health or Care? none at this time What Questions Do You Have About Your Health or Care? none at this time What Information Would Help Us Give You More Personalized Care? none at this time Goal: Fall Prevention-Safe Patient Handling Outcome: Ongoing (Interventions Implemented as Appropriate) 02/02/20209902/02/20 2229 Riggins Fall Risk History of Falling 0 -- Secondary Diagnosis 15 -- Ambulatory Aids 0 -- Intravenous Therapy/Heparin/Saline Lock 20 -- Gait/Transferring 0 -- Mental Status 0 -- Score 35 -- OTHER Riggins Fall Risk Med -- Restraint Interventions Safety Promotion/Fall Prevention activity supervised;nonskid shoes/slippers when out of bed -- Positioning Body Position independent -- Activity Activity Type -- activity adjusted per tolerance Activity Assistance Provided -- independent Assistive Device Utilized -- none Goal: Infection Control Outcome: Ongoing (Interventions Implemented as Appropriate) 02/02/20 2100 Safety Interventions Isolation Precautions protective environment maintained Infection Prevention environmental surveillance performed;rest/sleep promoted;single patient room provided;visitors restricted/screened Coping Strategies Supportive Measures active listening utilized;self-care encouraged;self- reflection promoted;self-responsibility promoted;verbalization of feelings encouraged Goal: Discharge Needs Assessment Outcome: Ongoing (Interventions Implemented as Appropriate) 02/03/20 0515 Discharge Needs Assessment Readmission Within The Last 30 Days no previous admission in last 30 days Discharge Disposition still a patient Living Environment Transportation Available car;family or friend will provide Goal: Interdisciplinary Rounds/Family Conf Outcome: Ongoing (Interventions Implemented as Appropriate) 02/03/20 0515 Interdisciplinary Rounds/Family Conf Participants nursing;patient Plan of Care - Marry López RN - 02/02/2020 1:24 PM EDT Problem: Patient Care Overview Goal: Plan of Care Review Outcome: Ongoing (Interventions Implemented as Appropriate) 02/02/20 0208 02/02/2033 Plan of Care Review Progress progress towards functional goals is fair -- Coping/Psychosocial Plan Of Care Reviewed With -- patient OUTCOME EVALUATION NOTE: OUTCOME SUMMARY: VSS. Febrile x2 (tmax 39.4), notified, PRN tylenol given x2 w/ good effect. Pt denies chest pain,SOB, and nausea. She rates 2/10 pain r/t headache. Continues on IV abx. EKG completed. PLAN MOVING FORWARD: Monitor vs and labs Continue IV abx CT abd and pelvis INDIVIDUALIZED FALL PREVENTION INTERVENTIONS: Patient-specific fall risk factors per assessment: [current deficits]: Med fall risk, steady on feet, rings appropriately Assistance [level of assistance required for transfers and ambulation]: SBA Supervision [direct monitoring required during toileting and ADLs]: Eyes on Surveillance [continuous indirect monitoring]: Hourly rounding, call encinas within reach, masimo, bed alarm set Patient-specific fall prevention interventions for sensory deficits provided, if applicable: N/A CPG GOAL OUTCOME EVALUATION: Goal: Individualization & Mutuality Outcome: Ongoing (Interventions Implemented as Appropriate) 02/01/203 Mutuality/Individual Preferences What Anxieties, Fears or Concerns Do You Have About Your Health or Care? none at this time What Questions Do You Have About Your Health or Care? none at this time What Information Would Help Us Give You More Personalized Care? none at this time Goal: Fall Prevention-Safe Patient Handling Outcome: Ongoing (Interventions Implemented as Appropriate) 02/01/20 2300 02/02/20 0933 Riggins Fall Risk History of Falling -- 0 Secondary Diagnosis -- 15 Ambulatory Aids -- 0 Intravenous Therapy/Heparin/Saline Lock -- 20 Gait/Transferring -- 0 Mental Status -- 0 Score -- 35 OTHER Riggins Fall Risk -- High (first 24) Restraint Interventions Safety Promotion/Fall Prevention -- activity supervised;fall prevention program maintained;nonskid shoes/slippers when out of bed;safety round/check completed Positioning Body Position -- independent Activity Activity Type -- activity adjusted per tolerance Activity Assistance Provided -- assistance, stand-by Assistive Device Utilized none -- Goal: Infection Control Outcome: Ongoing (Interventions Implemented as Appropriate) 02/02/20 0933 Safety Interventions Isolation Precautions protective environment maintained Infection Prevention personal protective equipment utilized;rest/sleep promoted;single patient room provided;visitors restricted/screened Coping Strategies Supportive Measures active listening utilized;self-care encouraged;verbalization of feelings encouraged Goal: Discharge Needs Assessment Outcome: Ongoing (Interventions Implemented as Appropriate) 02/02/20207 Discharge Needs Assessment Discharge Disposition still a patient Goal: Interdisciplinary Rounds/Family Conf Outcome: Ongoing (Interventions Implemented as Appropriate) 02/02/20207 Interdisciplinary Rounds/Family Conf Participants nursing;patient Initial Assessments - Rebekah Ortiz RN - 02/02/2020 11:08 AM EDT Office of Care Management Initial Assessment Rebekah Ortiz RN reviewed record and discussed patient with Care Team. Source of Information: Chart review, care team and interview with patient. Introduced self/reviewed role; services accepted. Reason for Hospitalization: Reason for Admission as Stated by Patient: neutropenic fever Last COVID test date and time: 02/01/20 1453 Negative Past Medical History: Diagnosis Date ??? Arthritis ??? Cancer Hospitalizations Within the Past 30 Days: No hospitalizations. Anticipated Length Of Stay (If known): 2-4 days. Current Decision-Making Capacity: Pt is A&O x3. She is independent with decision making. Advance Care Planning: No AD on file. She says she has been working on them with her PCP and will deliver them to his office the next time she has an apt with him. If AD's have not been completed pt's oldest son would be surrogate decision maker per [place] surrogate decision making law. Any patient receiving care at [facility] must abide by [place] law. The hierarchy for surrogate decision making [...] (i) The agent with financial power of finance attorney or a conservator appointed in accordance with RSA 464-A. (j) The guardian of the patient???s estate. Current Coping/Education/Information Needs: No issues with coping or understanding new information. She reports that she is happy with the care here and feels well informed of the plan of care. Current Functional Ability: Independent with ambulation without devices and independent with ADL's. She reports being extremely active and walks her dog daily. 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 Functional Status Prior to Admission: Independent with ambulation without devices and independent with ADL's. Home Environment: Lives alone in a 1 story house with 3 steps to enter. She is independent with the the steps. Social & Family Supports/Community Resources: Reports that she has a lot of support via her friends and PCP. Behavioral Health History: No reports of mental health issues including depression and anxiety. Substance Use/Abuse: Does not smoke or use illicit drugs. She reports that she hasn't drank alcohol since June when she was diagnosed with an ulcer but that she used to drink 2-3 glasses of wine a week. Other Pertinent/Service Specific Information: N/A Health/Prescription Coverage: [facility] Secondary Insurance: N/A Prescription Coverage: Yes Preferred Pharmacy: [facility] [place], [place] Other: Her chemo medication, Gleevec, is mailed to her by the [facility] pharmacy Primary Care Provider: Irving Wheeler MD [phone] Patient/Caregiver Goals of Treatment: Pt would like to be d'c/d home without the need for visiting nurses. Potential Needs for Transition of Care: Rehab/SNF: Not anticipated. Home Health: Not anticipated. DME: N/A Dialysis: N/A Community Resources: N/A Transportation: Friend Lesli Jordan. Other: N/A Anticipated Barriers to Discharge/Special Considerations: There are no barriers to d/c. Pt has supportive friends, PCP and is independent with mobility. Assessment: 59 year old independent female who lives alone in a 1 story home. She is independent with ambulation and ADL's. She is insured through [employer] and has prescription drug coverage. She take PO chemo and that med is mailed to her from the [facility] pharmacy. Pt reports that sheis active ans walks her dog daily. She has good social support via friends and her PCP. She has no social work needs and reports that when she is d/c'd her frind Lesli will drive her home. Plan: Will provide emotional support while hospitalized and intervene as needed. Anticipated d/c plan is for no needs. A member of the Care Management team will continue to monitor progress, follow for continuity of care and assist with transition of care planning. Rebekah Ortiz RN Pager: [phone] Plan of Care - Telma Fair RN - 02/02/2020 2:12 AM EDT Problem: Patient Care Overview Goal: Plan of Care Review Outcome: Ongoing (Interventions Implemented as Appropriate) 02/01/20 2300 02/02/20 0208 Plan of Care Review Progress -- progress towards functional goals is fair Coping/Psychosocial Plan Of Care Reviewed With patient -- OUTCOME EVALUATION NOTE: OUTCOME SUMMARY: Pt arrived form the ED at 2220. Oriented Pt to room and call light. Explained the fall precautions and expectations. Pt verbalized understanding. Pt VSS, clear on RA, A&Ox4. Tmax 38.1 - MD notified. No further blood cx or assessment needed at this time. Provided PRN tylenol. Continued IV ABX. Pt rested comfortably between care. PLAN MOVING FORWARD: Monitor VS, labs, I&Os Monitor fevers- PRN tylenol Continue IV ABX Plans for oncology consult INDIVIDUALIZED FALL PREVENTION INTERVENTIONS: Patient-specific fall risk factors per assessment: [current deficits]: IV ABX, recent admission Assistance [level of assistance required for transfers and ambulation]: SBA Supervision [direct monitoring required during toileting and ADLs]: Eyes on, within arms reach Surveillance [continuous indirect monitoring]: Purposeful rounding, call encinas within reach, room near nurses station, bed alarm on, masimo on Patient-specific fall prevention interventions for sensory deficits provided, if applicable: N/A CPG GOAL OUTCOME EVALUATION: Goal: Individualization & Mutuality Outcome: Ongoing (Interventions Implemented as Appropriate) 02/01/202242 Mutuality/Individual Preferences What Anxieties, Fears or Concerns Do You Have About Your Health or Care? none at this time What Questions Do You Have About Your Health or Care? none at this time What Information Would Help Us Give You More Personalized Care? none at this time Goal: Fall Prevention-Safe Patient Handling Outcome: Ongoing (Interventions Implemented as Appropriate) 02/01/20224002/01/202299 Riggins Fall Risk History of Falling 0 -- Secondary Diagnosis 0 -- Ambulatory Aids 0 -- Intravenous Therapy/Heparin/Saline Lock 20 -- Gait/Transferring 0 -- Mental Status 0 -- Score 20 -- OTHER Riggins Fall Risk High (SBA 24 hr) -- Restraint Interventions Safety Promotion/Fall Prevention -- activity supervised;muscle strengthening facilitated;nonskid shoes/slippers when out of bed;safety round/check completed;fall prevention program maintained Positioning Body Position -- independent Activity Activity Type -- activity adjusted per tolerance Activity Assistance Provided -- assistance, stand-by Assistive Device Utilized -- none Goal: Infection Control Outcome: Ongoing (Interventions Implemented as Appropriate) 02/01/202299 Safety Interventions Isolation Precautions protective environment initiated;protective environment maintained Infection Prevention barrier precautions utilized;personal protective equipment utilized;rest/sleep promoted;single patient room provided;equipment surfaces disinfected Coping Strategies Supportive Measures active listening utilized;self-responsibility promoted;verbalization of feelingsencouraged Goal: Discharge Needs Assessment Outcome: Ongoing (Interventions Implemented as Appropriate) 02/02/20207 Discharge Needs Assessment Discharge Disposition still a patient Goal: Interdisciplinary Rounds/Family Conf Outcome: Ongoing (Interventions Implemented as Appropriate) 02/02/20207 Interdisciplinary Rounds/Family Conf Participants nursing;patient ED Triage - Edgardo Contreras RN - 02/01/2020 3:37 PM EDT Pt receiving PO cancer treatment. States she has had fevers, chills, and cough for the past few days. PCP called this AM and told pt she had a low white count and should come to ED for eval. Ambulatory, A+O documented in this encounter Plan of Treatment Upcoming Encounters Date Type Specialty Care Team Description 02/15/2022 Office Visit Hematology and Oncology Morris Dozier MD [facility] ONCOLOGY [place], [place] 0375 (Wo rk) documented as of this encounter Goals Goal Patient Goal Associated Recent Patient-Stated? Author Type Problems Progress DH Home Medication Patient No [place], Compliance and Facing Brandt Morin Understanding Action Plan [facility] Note: Formatting of this note might be d ifferent from the original. Remain 95% adherent to Imatinib therapy without significant neutropenia as assessed by CBC labs in clinic every 1 to 3 months documented as of this encounter Procedures Procedure Name Priority Date/Time Associated Diagnosis Comme nts SCAN, PERIPHERAL Routine 02/04/2020 8:24 AM Resul ts for this BLOOD EDT procedure are i n the results section. HEMOGRAM Routine 02/04/2020 8:24 AM Results f or this EDT procedure are i n the results section. DIFFERENTIAL, Routine 02/04/2020 8:24 AM Results for this AUTOMATED EDT procedure are i n the results section. HC VENIPUNCTURE Routine 02/04/2020 8:24 AM EDT HEMOGRAM Routine 02/04/2020 3:48 AM Results f or this EDT procedure are i n the results section. HC VENIPUNCTURE Routine 02/04/2020 3:48 AM EDT BASIC METABOLIC PANEL Routine 02/04/2020 3:48 AM Results for this (NON-FASTING) EDT procedure are in the results section. HC RESPIRATORY VIRUS Routine 02/03/2020 4:32 PM R esults for this PANEL BY PCR EDT procedure are i n the results section. HC VENIPUNCTURE Timed 02/03/2020 3:02 PM Result s for this EDT procedure are i n the results section. SCAN, PERIPHERAL Routine 02/03/2020 4:58 AM Resul ts for this BLOOD EDT procedure are i n the results section. HEMOGRAM Routine 02/03/2020 4:58 AM Results f or this EDT procedure are i n the results section. DIFFERENTIAL, Routine 02/03/2020 4:58 AM Results for this AUTOMATED EDT procedure are i n the results section. HC BLOOD CULTURE- STAT 02/03/2020 4:58 AM Resu lts for this EDT procedure are i n the results section. HC BLOOD CULTURE- STAT 02/03/2020 4:58 AM Resu lts for this EDT procedure are i n the results section. HC VENIPUNCTURE Routine 02/03/2020 4:58 AM EDT HEPATIC FUNCTION Routine 02/03/2020 4:58 AM Resul ts for this PANEL EDT procedure are i n the results section. BASIC METABOLIC PANEL Routine 02/03/2020 4:58 AM Results for this (NON-FASTING) EDT procedure are in the results section. CT ABDOMEN AND PELVIS Routine 02/02/2020 11:29 Re sults for this W CONTRAST PM EDT procedure are i n the results section. EKG 12-LEAD Routine 02/02/2020 4:37 PM Neutropenic f ever Results for this EDT Anemia, unspecified procedur e are in type the results section. SCAN, PERIPHERAL Routine 02/02/2020 4:50 AM Resul ts for this BLOOD EDT procedure are i n the results section. HEMOGRAM Routine 02/02/2020 4:50 AM Results f or this EDT procedure are i n the results section. DIFFERENTIAL, Routine 02/02/2020 4:50 AM Results for this AUTOMATED EDT procedure are i n the results section. HC VENIPUNCTURE Routine 02/02/2020 4:50 AM EDT BASIC METABOLIC PANEL Routine 02/02/2020 4:50 AM Results for this (NON-FASTING) EDT procedure are in the results section. HEMOGRAM STAT 02/01/2020 6:09 PM Results f or this EDT procedure are i n the results section. DIFFERENTIAL, MANUAL STAT 02/01/2020 6:09 PM R esults for this EDT procedure are i n the results section. HC BLOOD CULTURE- STAT 02/01/2020 6:05 PM Resu lts for this EDT procedure are i n the results section. XR CHEST PA AND STAT 02/01/2020 4:43 PM Result s for this LATERAL EDT procedure are i n the results section. URINALYSIS STAT 02/01/2020 4:31 PM Results f or this MICROSCOPIC EXAM EDT procedure a re in the results section. URINALYSIS WITH STAT 02/01/2020 4:31 PM Result s for this REFLEX CULTURE EDT procedure are in the results section. HEMOGRAM STAT 02/01/2020 4:25 PM Results f or this EDT procedure are i n the results section. BLUE TUBE HOLD STAT 02/01/2020 4:25 PM Results for this EDT procedure are i n the results section. HC BLOOD CULTURE- STAT 02/01/2020 4:25 PM Resu lts for this EDT procedure are i n the results section. CBC (WITH DIFF) STAT 02/01/2020 4:25 PM EDT HEPATIC FUNCTION STAT 02/01/2020 4:25 PM Resul ts for this PANEL EDT procedure are i n the results section. BASIC METABOLIC PANEL STAT 02/01/2020 4:25 PM Results for this (NON-FASTING) EDT procedure are in the results section. documented in this encounter Results Scan, Peripheral Blood (02/04/2020 8:24 AM EDT) [facility] Docin Method Time Signature Plat Estimate Normal [facility] RBC Morphology Abnormal [facility] Ovalocytes 1-5 /HPF [facility] Specimen Anatomical Collection Method Collection Time Receive d Time (Source) Location / / Volume Laterality Blood specimen 02/04/2020 8:24 AM 020 8:32 (specimen) EDT AM EDT Resulting Agency Comment Spec In Lab Kyler Hurley MD HEMATOLOGY ORDERABLES Performing Organization Address City/State/[place] [address] (ABNORMAL) Differential, Automated (02/04/2020 8:24 AM EDT) [facility] Docin Method Time Signature Neutrophils % 15.6 % [facility] Neutr Abs (ANC) 0.50 (L) 1.70 - [facility] 6.10 [facility] x10(3)/[facility] L LABORATORY Lymphocytes % 29.7 % [facility] Lymphocytes Abs 1.0 0.9 - 3.2 [facility] x10(3)/[facility] LABORATORY Monocytes % 51.6 % [facility] Monocyte Abs 1.6 (H) 0.3 - 0.9 [facility] x10(3)/[facility] LABORATORY Eosinophils % 2.2 % [facility] Eosinophils Abs 0.1 0.0 - 0.4 [facility] x10(3)/[facility] LABORATORY Basophils % 0.6 % [facility] Basophils Abs 0.0 0.0 - 0.1 [facility] x10(3)/[facility] LABORATORY Immature Gran % 0.30 % [facility] Comment: Immature granulocytes(IG's)percentage an d absolute count will include metamyelocytes, myelocytes, and promyelo cytes. Blood smears from CBCs yielding IG's will be scanned manually for concor dance. If this scan disagrees with the automated IG or if promyelocytes are not ed, a manual differential will be performed. Teresa Gran Abs 0.01 0.00 - 0.04 x10(3)/[facility]OR[facility] Specimen Anatomical Collection Method Collection Time Receive d Time (Source) Location / / Volume Laterality Blood specimen 02/04/2020 8:24 AM 020 8:32 (specimen) EDT AM EDT Resulting Agency Comment Spec In Lab Kyler Hurley MD HEMATOLOGY ORDERABLES Performing Organization Address City/State/[place] [address] (ABNORMAL) Hemogram (02/04/2020 8:24 AM EDT) Analysis Performed At Patho logist Time Signature WBC 3.2 (L) 4.0 - 9.5 [facility] x10(3)/[facility] LABORATORY RBC 3.81 (L) 4.00 - [facility] 5.21 [facility] x10(6)/[facility] LABORATORY Hemoglobin 10.2 (L) 11.7 - [facility] 15.[facility] gm/dL [facility] Hematocrit 32.1 (L) 35.7 - [facility] 45.8 % [facility] MCV 84.3 82.6 - [facility] 94.4 fL [facility] MCH 26.8 (L) 27.1 - [facility] 32.0 pg [facility] MCHC 31.8 31.7 - [facility] 35.0 gm/dL [facility] Platelets 219 145 - 357 [facility] x10(3)/[facility] LABORATORY RDWSD 58.0 (H) 37.0 - [facility] 46.0 [facility] LABORATORY RDWCV 19.0 (H) 11.5 - [facility] 14.1 % [facility] MPV 9.2 7.6 - 12.9 [facility] LABORATORY nRBC % Auto 0.0 % [facility] nRBC Abs Auto 0.000 0.000 - [facility] 0.000 [facility] x10(3)/[facility] LABORATORY Specimen Anatomical Collection Method Collection Time Receive d Time (Source) Location / / Volume Laterality Blood specimen 02/04/2020 8:24 AM 020 8:32 (specimen) EDT AM EDT Resulting Agency Comment Spec In Lab Kyler Hurley MD HEMATOLOGY ORDERABLES Performing Organization Address City/State/[place] [address] Hemogram (02/04/2020 3:48 AM EDT) athologist Signature WBC Disregard 4.0 - 9.5 [facility] Comment: Called by: NAEEM, Read back by: KRISTIN RODRIGUEZ [facility], Date/Time:02/04/20 04:36. SAMPLE CLOTTED Corrected from 3.3 x10(3)/mcL [LOW] on 0 02/04/20 4:43:41 EDT by Magalys Zuniga RBC Disregard 4.00 - 5.21 [facility] Comment: Called by: NAEEM, Read back by: KRISTIN RODRIGUEZ [facility], Date/Time:02/04/20 04:36. SAMPLE CLOTTED Corrected from 3.70 x10(6)/mcL [LOW] on 02/04/20 4:43:41 EDT by Magalys Zuniga Hemoglobin Disregard 11.7 - 15.5 [facility] Comment: Called by: NAEEM, Read back by: KRISTIN RODRIGUEZ [facility], Date/Time:02/04/20 04:36. SAMPLE CLOTTED Corrected from 10.0 gm/dL [LOW] on 02/03 4:43:41 EDT by Magalys Zuniga Hematocrit Disregard 35.7 - 45.8 [facility] Comment: Called by: NAEEM, Read back by: KRISTIN RODRIGUEZ [facility], Date/Time:02/04/20 04:36. SAMPLE CLOTTED Corrected from 31.1 % [LOW] on 02/04/20 4:43:41 EDT by Magalys Zuniga MCV Disregard 82.6 - 94.4 [facility] Comment: Called by: NAEEM, Read back by: KRISTIN RODRIGUEZ [facility], Date/Time:02/04/20 04:36. SAMPLE CLOTTED Corrected from 84.1 fL on 02/04/20 4:43: 41 EDT by Magalys Zuniga MCH Disregard 27.1 - 32.0 [facility] Comment: Called by: NAEEM, Read back by: KRISTIN RODRIGUEZ [facility], Date/Time:02/04/20 04:36. SAMPLE CLOTTED Corrected from 27.0 pg [LOW] on 02/04/20 4:43:41 EDT by Magalys Zuniga MCHC Disregard 31.7 - 35.0 [facility] Comment: Called by: NAEEM, Read back by: KRISTIN RODRIGUEZ [facility], Date/Time:02/04/20 04:36. SAMPLE CLOTTED Corrected from 32.2 gm/dL on 02/04/20 4: 43:41 EDT by Magalys Zuniga Platelets Disregard 145 - 357 [facility] Comment: Called by: NAEEM, Read back by: KRISTIN RODRIGUEZ [facility], Date/Time:02/04/20 04:36. SAMPLE CLOTTED Corrected from 204 x10(3)/mcL on 0 4:43:41 EDT by Magalys Zuniga RDWSD Disregard 37.0 - 46.0 [facility] Comment: Called by: NAEEM, Read back by: KRISTIN RODRIGUEZ [facility], Date/Time:02/04/20 04:36. SAMPLE CLOTTED Corrected from 57.9 fL [HI] on 02/04/20 4:43:41 EDT by Magalys Zuniga RDWCV Disregard 11.5 - 14.1 [facility] Comment: Called by: NAEEM, Read back by: KRISTIN RODRIGUEZ [facility], Date/Time:02/04/20 04:36. SAMPLE CLOTTED Corrected from 19.0 % [HI] on 02/04/20 4 :43:41 EDT by Magalys Zuniga MPV Disregard 7.6 - 12.9 [facility] Comment: Called by: NAEEM, Read back by: KRISTIN RODRIGUEZ [facility], Date/Time:02/04/20 04:36. SAMPLE CLOTTED Corrected from 9.3 fL on 02/04/20 4:43:4 1 EDT by Magalys Zuniga nRBC % Auto Disregard [facility] Comment: Called by: NAEEM, Read back by: KRISTIN RODRIGUEZ [facility], Date/Time:02/04/20 04:36. SAMPLE CLOTTED Corrected from 0.0 % [NA] on 02/04/20 4: 43:41 EDT by Magalys Zuniga nRBC Abs Auto Disregard 0.000 - 0.000 [facility] Comment: Called by: NAEEM, Read back by: KRISTIN RODRIGUEZ [facility], Date/Time:02/04/20 04:36. SAMPLE CLOTTED Corrected from 0.000 x10(3)/mcL on 02/03 4:43:41 EDT by Magalys Zuniga Specimen Anatomical Collection Method Collection Time Receive d Time (Source) Location / / Volume Laterality Blood specimen 02/04/2020 3:48 AM 020 3:56 (specimen) EDT AM EDT Resulting Agency Comment Spec In Lab Myles Flor MD HEMATOLOGY ORDERABLES Performing Organization Address City/State/[place] [address] (ABNORMAL) Basic Metabolic Panel (non-fasting) (02/04/2020 3:48 AM EDT) athologist Signature Glucose Lvl 99 65 - 199 [facility] mg/dL [facility] Comment: Diabetes: >=200 mg/dL plus symp toms BUN 6 (L) 8 - 18 mg/dL [facility] Creatinine 0.41 (L) 0.70 - 1.20 mg/dL [facility] Sodium 140 135 - 145 mmol/L [facility] Potassium 3.9 3.5 - 5.0 mmol/L [facility] Comment: Please note: ??Patients with WBC >100,00 0 may have falsely elevated Potassium levels. ??For accurate Potassium quantif ication in these patients send serum separator tube (gold top) for subsequent determinations. ??Contact the Clinical Chemistry Laboratory if there are any qu estions. Chloride 106 98 - 107 mmol/L [facility] CO2 26 22 - 31 mmol/L [facility] Anion Gap 8 5 - 15 mmol/L [facility] Calcium 8.6 8.5 - 10.5 mg/dL [facility] Estimated GFR 115 >=60 mL/min/1.73 m?? [facility] Comment: The eGFR was calculated using the CKD-EP I equation. As with all creatinine based estimates of kidney function, eGFR values calculated with the CKD-EPI equation are not accurate in patients wi th acute kidney failure, extremes of body mass or the acutely ill. [email or web address] eGFR 133 >=60 mL/min/1.73 m?? [facility] Comment: The eGFR was calculated using the CKD-EP I equation. As with all creatinine based estimates of kidney function, eGFR values calculated with the CKD-EPI equation are not accurate in patients wi th acute kidney failure, extremes of body mass or the acutely ill. [email or web address] Specimen Anatomical Collection Method Collection Time Receive d Time (Source) Location / / Volume Laterality Blood specimen 02/04/2020 3:48 AM 020 3:56 (specimen) EDT AM EDT Resulting Agency Comment Spec In Lab Myles Flor MD CHEMISTRY ORDERABLES Performing Organization Address City/State/[place] [address] Respiratory Panel PCR (02/03/2020 4:32 PM EDT) Analysis Performed At [facility] logist Time Signature Resp Panel [employer] [facility] LABORATORY Resp Panel PCR Negative Negative [facility] Comment: Respiratory Panels are performed on the Ezoic, using multiplexed PCR nucleic acid detection. ??Negative resul ts do not preclude respiratory infection and should not be used as the sole basis for diagnosis, treatment or other management decisions. Adenovirus Not Detected Not Detected [facility] Coronavirus HKU1 Not Detected Not Detected [facility] Coronavirus NL63 Not Detected Not Detected [facility] Coronavirus 229E Not Detected Not Detected [facility] Coronavirus OC43 Not Detected Not Detected [facility] Human Metapneumovirus Not Detected Not Detected [facility] Human Rhino/Enterovirus Not Detected Not Detected [facility] Influenza A Not Detected Not Detected [facility] Influenza B Not Detected Not Detected [facility] Parainfluenza 1 Not Detected Not Detected [facility] Parainfluenza 2 Not Detected Not Detected [facility] Parainfluenza 3 Not Detected Not Detected [facility] Parainfluenza 4 Not Detected Not Detected [facility] Respiratory Syncytial Virus Not Detected Not Detected [facility] Chlamydophila pneumoniae Not Detected Not Detected [facility] Mycoplasma pneumoniae Not Detected Not Detected [facility] Specimen (Source) Anatomical Collection Method Collection Time Re ceived Time Location / / Volume Laterality Nasopharyngeal swab 02/03/2020 4:32 02/02 (specimen) PM EDT 4:58 PM EDT Resulting Agency Comment Spec In Lab Kyler Hurley MD MICROBIOLOGY - GENERAL ORDER AYDIN Performing Organization Address City/[facility]/[place] [address] (ABNORMAL) BMP w/fasting Glucose (02/03/2020 3:02 PM EDT) athologist Signature Glucose 125 (H) 65 - 99 [facility] Fasting mg/dL [facility] Comment: ?Fasting* Glucose Interpretive C riteria [...] of Diabetes Mellitus, Position Statement from the [place] [employer]. ??Diabete s Care, Volume 33, Supplement 1, May 2009 BUN 5 (L) 8 - 18 mg/dL [facility] Creatinine 0.45 (L) 0.70 - 1.20 mg/dL [facility] Sodium 142 135 - 145 mmol/L [facility] Potassium 3.5 3.5 - 5.0 mmol/L [facility] Comment: Please note: ??Patients with WBC >100,00 0 may have falsely elevated Potassium levels. ??For accurate Potassium quantif ication in these patients send serum separator tube (gold top) for subsequent determinations. ??Contact the Clinical Chemistry Laboratory if there are any qu estions. Chloride 104 98 - 107 mmol/L [facility] CO2 29 22 - 31 mmol/L [facility] Anion Gap 9 5 - 15 mmol/L [facility] Calcium 9.1 8.5 - 10.5 mg/dL [facility] Estimated GFR 111 >=60 mL/min/1.73 m?? [facility] Comment: The eGFR was calculated using the CKD-EP I equation. As with all creatinine based estimates of kidney function, eGFR values calculated with the CKD-EPI equation are not accurate in patients wi th acute kidney failure, extremes of body mass or the acutely ill. [email or web address]/[email or web address] eGFR 129 >=60 mL/min/1.73 m?? [facility] Comment: The eGFR was calculated using the CKD-EP I equation. As with all creatinine based estimates of kidney function, eGFR values calculated with the CKD-EPI equation are not accurate in patients wi th acute kidney failure, extremes of body mass or the acutely ill. [email or web address] Specimen Anatomical Collection Method Collection Time Receive d Time (Source) Location / / Volume Laterality Blood specimen 02/03/2020 3:02 PM 020 4:02 (specimen) EDT PM EDT Resulting Agency Comment Spec In Lab Kyler Hurley MD CHEMISTRY ORDERABLES Performing Organization Address City/[facility]/[place] [address] (ABNORMAL) Hepatic Function Panel (02/03/2020 4:58 AM EDT) P athologist Signature Total Protein 5.8 (L) 6.1 - 8.0 [place] DONNA gm/dL [facility] Albumin 3.4 3.2 - 5.2 [facility] DONNA gm/dL [facility] AST 25 0 - 30 [place] unit/L [facility] ALT 23 0 - 30 [place] unit/L [facility] Alk Phos 53 35 - 105 [facility] DONNA unit/L [facility] Total 0.3 0.2 - 1.3 [facility] Bilirubin mg/dL [facility] Bili, Direct 0.1 0.0 - 0.3 [facility] DONNA mg/dL [facility] Specimen Anatomical Collection Method Collection Time Receive d Time (Source) Location / / Volume Laterality Blood specimen Venous Draw / 02/03/2020 4:58 AM 2019 5:09 (specimen) Unknown EDT AM EDT Resulting Agency Comment Spec In Lab Kyler Hurley MD CHEMISTRY ORDERABLES Performing Organization Address City/[facility]/ZIP [facility] Phon [place] [facility] [place] [address] Scan, Peripheral Blood (02/03/2020 4:58 AM EDT) [facility] Docin Method Time Signature Plat Estimate Normal [facility] RBC Morphology Abnormal [facility] Ovalocytes 1-5 /HPF [facility] Tear Drop Cells 1-5 /HPF [facility] Specimen Anatomical Collection Method Collection Time Receive d Time (Source) Location / / Volume Laterality Blood specimen 02/03/2020 4:58 AM 020 5:06 (specimen) EDT AM EDT Resulting Agency Comment Spec In Lab Myles Flor MD HEMATOLOGY ORDERABLES Performing Organization Address City/[facility]/[place] [address] Blood culture (02/03/2020 4:58 AM EDT) [facility] Docin Method Time Signature Blood Culture No growth CAMILLA THOMPSON at 5 days. [facility] Specimen Anatomical Collection Method Collection Time Receive d Time (Source) Location / / Volume Laterality Blood specimen STRUCTURE OF LEFT 02/03/2020 4:58 AM 6:39 (specimen) HAND / Unknown EDT AM EDT Resulting Agency Comment Spec In Lab Myles Flor MD MICROBIOLOGY - BLOOD ORDERAB LES Performing Organization Address City/[facility]/[place] [address] Blood culture (02/03/2020 4:58 AM EDT) [facility] Docin Method Time Signature Blood Culture No growth CAMILLA THOMPSON at 5 days. [facility] Specimen Anatomical Collection Method Collection Time Receive d Time (Source) Location / / Volume Laterality Blood specimen STRUCTURE OF RIGHT 02/03/2020 4:58 AM 0 02/03/2020 6:37 (specimen) UPPER LIMB / EDT AM EDT Unknown Resulting Agency Comment Spec In Lab Myles Flor MD MICROBIOLOGY - BLOOD ORDERAB LES Performing Organization Address City/[facility]/[place] [address] (ABNORMAL) Differential, Automated (02/03/2020 4:58 AM EDT) Patholo gist Method Time Signature Neutrophils % 1.7 % [facility] Neutr Abs (ANC) 0.04 1.70 - [facility] (Critical 6.10 MEMORIAL ) x10(3)/[facility] LABORATORY Lymphocytes % 35.0 % [facility] Lymphocytes Abs 0.8 (L) 0.9 - 3.2 [facility] x10(3)/[facility] LABORATORY Monocytes % 60.9 % [facility] Monocyte Abs 1.5 (H) 0.3 - 0.9 [facility] x10(3)/[facility] LABORATORY Eosinophils % 1.6 % [facility] Eosinophils Abs 0.0 0.0 - 0.4 [facility] x10(3)/[facility] LABORATORY Basophils % 0.8 % [facility] Basophils Abs 0.0 0.0 - 0.1 [facility] x10(3)/[facility] LABORATORY Immature Gran % 0.00 % [facility] Comment: Immature granulocytes(IG's)percentage an d absolute count will include metamyelocytes, myelocytes, and promyelo cytes. Blood smears from CBCs yielding IG's will be scanned manually for concor dance. If this scan disagrees with the automated IG or if promyelocytes are not ed, a manual differential will be performed. Teresa Gran Abs 0.00 0.00 - 0.04 x10(3)/[facility] LABORATORY Specimen Anatomical Collection Method Collection Time Receive d Time (Source) Location / / Volume Laterality Blood specimen 02/03/2020 4:58 AM 020 5:06 (specimen) EDT AM EDT Resulting Agency Comment Spec In Lab Myles Flor MD HEMATOLOGY ORDERABLES Performing Organization Address City/State/[place] [address] (ABNORMAL) Hemogram (02/03/2020 4:58 AM EDT) Analysis Performed At [facility] logist Time Signature WBC 2.4 (L) 4.0 - 9.5 [facility] x10(3)/[facility] LABORATORY RBC 3.70 (L) 4.00 - [place] 5.21 [facility] x10(6)/[facility] LABORATORY Hemoglobin 10.3 (L) 11.7 - [place] 15.5 gm/dL [facility] Hematocrit 30.7 (L) 35.7 - [facility] 45.8 % [facility] MCV 83.0 82.6 - [facility] 94.4 [facility] LABORATORY MCH 27.8 27.1 - [facility] 32.0 pg [facility] MCHC 33.6 31.7 - [facility] 35.0 gm/dL [facility] Platelets 184 145 - 357 [facility] x10(3)/[facility] LABORATORY RDWSD 57.1 (H) 37.0 - [facility] 46.0 [facility] LABORATORY RDWCV 19.0 (H) 11.5 - [facility] DONNA 14.1 % [facility] MPV 9.6 7.6 - 12.9 [facility] LABORATORY nRBC % Auto 0.0 % [facility] nRBC Abs Auto 0.000 0.000 - [facility] 0.000 [facility] x10(3)/[facility] LABORATORY Specimen Anatomical Collection Method Collection Time Receive d Time (Source) Location / / Volume Laterality Blood specimen 02/03/2020 4:58 AM 020 5:06 (specimen) EDT AM EDT Resulting Agency Comment Spec In Lab Myles Flor MD HEMATOLOGY ORDERABLES Performing Organization Address City/State/[place] [address] (ABNORMAL) Basic Metabolic Panel (non-fasting) (02/03/2020 4:58 AM EDT) P athologist Signature Glucose Lvl 107 65 - 199 [facility] mg/dL [facility] Comment: Diabetes: >=200 mg/dL plus symp toms BUN 6 (L) 8 - 18 mg/dL [facility] LABORATORY Creatinine 0.42 (L) 0.70 - 1.20 mg/dL [facility] LABORATORY Sodium 139 135 - 145 mmol/L [facility]ORY Potassium 2.9 (Critical) 3.5 - 5.0 mmol/L [facility] Comment: Called by: dawson, Read back by: milady see, Date/Time:02/03/20 05:43. Please note: ??Patients with WBC >100,00 0 may have falsely elevated Potassium levels. ??For accurate Potassium quantif ication in these patients send serum separator tube (gold top) for subsequent determinations. ??Contact the Clinical Chemistry Laboratory if there are any qu estions. Chloride 102 98 - 107 mmol/L [facility] CO2 27 22 - 31 mmol/L [facility] Anion Gap 10 5 - 15 mmol/L [facility] Calcium 8.3 (L) 8.5 - 10.5 mg/dL [facility] Estimated GFR 114 >=60 mL/min/1.73 m?? [facility] Comment: The eGFR was calculated using the CKD-EP I equation. As with all creatinine based estimates of kidney function, eGFR values calculated with the CKD-EPI equation are not accurate in patients wi th acute kidney failure, extremes of body mass or the acutely ill. [email or web address] eGFR 132 >=60 mL/min/1.73 m?? [facility] Comment: The eGFR was calculated using the CKD-EP I equation. As with all creatinine based estimates of kidney function, eGFR values calculated with the CKD-EPI equation are not accurate in patients wi th acute kidney failure, extremes of body mass or the acutely ill. [email or web address] Specimen Anatomical Collection Method Collection Time Receive d Time (Source) Location / / Volume Laterality Blood specimen 02/03/2020 4:58 AM 020 5:06 (specimen) EDT AM EDT Resulting Agency Comment Spec In Lab Myles Flor MD CHEMISTRY ORDERABLES Performing Organization Address City/State/[place] [address] Abdomen & Pelvis w Contrast (02/02/2020 11:29 PM EDT) Anatomical Region Laterality Modality Abdomen, Pelvis Computed Tomography Specimen (Source) Anatomical Location Collection Method / Collectio n Time Received Time / Laterality Volume Impressions 02/03/2020 2:21 AM EDT 1. ??Similar overall size of large mass involving the stomach proximal duodenum with some interval thinning of the enhan cing wall and interval mild increase in the central low-attenuation suggesting a dditional interval necrosis. 2. ??Small amount of free fluid projecti ng in the cul-de-sac 3. ??No organized collection. 4. ??Mild interval increase in intravent ricular and extrahepatic bile duct dilatation. Thank you for letting us participate in the care of this patient. For questions regarding this report, please contact e number below. ? Narrative 02/03/2020 2:21 AM EDT EXAMINATION: CT ABDOMEN AND PELVIS W CONTRAST CLINICAL HISTORY: Abdominal infection julian spected - Include more detail below neutropenic fever, unclear source History of gastrointestinal stromal tumo r TECHNIQUE: Helical CT of the abdomen and pelvis was performed following the intravenous administration of contrast. Administered 66.0 ml of OMNIPAQUE 350.00 mg/ml. Oral contrast was administered. COMPARISON: 11/22/2019 CT abdomen pelvis PET/CT dated 12/29/2019 FINDINGS: Lower chest: Pleural-based nodule image 5 series 906 mm, similar to prior exam given differences in technique and not c ompletely included on first comparison exam dated 11/22/2019 Liver: Normal size and attenuation witho ut lesions. Bile ducts: Slight interval increase of mild intra-and extra hepatic bile duct dilatation. Narrowing distal common bile duct associated with the large mass. Gallbladder: No calcified gallstones. No rmal caliber wall. 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 Spleen: Normal. Adrenals: Normal. Kidneys: Normal. Urinary Bladder: Normal. Vasculature: No aneurysm. Lymph Nodes: No enlarged lymph nodes. Bowel: Heterogeneous mass with low atten uation center associated with the third portion of the duodenum. Apparent ulcera tion involving the duodenal wall best appreciated image 57 series 900. The mas s itself measures in the 6 cm AP by 8 cm transverse by approximately 6 cm in the craniocaudal dimension. There is central low attenuation suggesting necrosis or h emorrhage. The irregular enhancing wall is somewhat thinner and the low attenuat ion center is larger than on prior exam of 11/22/2019 consistent with additional interval necrosis Peritoneum and mesentery: Small amount o f free fluid posterior to the uterus and between the sacrum, rectum and uterus, i mage 108 series 900. No free air, or loculated fluid collection. No mesenteri c inflammation. Abdominal wall: Normal. Reproductive organs: Normal. Osseous structures: No suspicious lesion s. Procedure Note Rex Ferguson MD - 02/03/2020Formatt ing of this note might be different from the original. EXAMINATION: CT ABDOMEN AND PELVIS W CON TRAST CLINICAL HISTORY: Abdominal infection julian spected - Include more detail below neutropenic fever, unclear source History of gastrointestinal stromal tumo r TECHNIQUE: Helical CT of the abdomen and pelvis was performed following the intravenous administration of contrast. Administered 66.0 ml of OMNIPAQUE 350.00 mg/ml. Oral contrast was administered. COMPARISON: 11/22/2019 CT abdomen pelvis PET/CT dated 12/29/2019 FINDINGS: Lower chest: Pleural-based nodule image 5 series 906 mm, similar to prior exam given differences in technique and not c ompletely included on first comparison exam dated 11/22/2019 Liver: Normal size and attenuation witho ut lesions. Bile ducts: Slight interval increase of mild intra-and extra hepatic bile duct dilatation. Narrowing distal common bile duct associated with the large mass. Gallbladder: No calcified gallstones. No rmal caliber wall. 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 Spleen: Normal. Adrenals: Normal. Kidneys: Normal. Urinary Bladder: Normal. Vasculature: No aneurysm. Lymph Nodes: No enlarged lymph nodes. Bowel: Heterogeneous mass with low atten uation center associated with the third portion of the duodenum. Apparent ulcera tion involving the duodenal wall best appreciated image 57 series 900. The mas s itself measures in the 6 cm AP by 8 cm transverse by approximately 6 cm in the craniocaudal dimension. There is central low attenuation suggesting necrosis or h emorrhage. The irregular enhancing wall is somewhat thinner and the low attenuat ion center is larger than on prior exam of 11/22/2019 consistent with additional interval necrosis Peritoneum and mesentery: Small amount o f free fluid posterior to the uterus and between the sacrum, rectum and uterus, i mage 108 series 900. No free air, or loculated fluid collection. No mesenteri c inflammation. Abdominal wall: Normal. Reproductive organs: Normal. Osseous structures: No suspicious lesion s. IMPRESSION 1. Similar overall size of large mass in volving the stomach proximal duodenum with some interval thinning of the enhan cing wall and interval mild increase in the central low-attenuation suggesting a dditional interval necrosis. 2. Small amount of free fluid projecting in the cul-de-sac 3. No organized collection. 4. Mild interval increase in intraventri cular and extrahepatic bile duct dilatation. Thank you for letting us participate in the care of this patient. For questions regarding this report, please contact th e number below. Kyler Hurley MD IMG CT ORDERABLES EKG 12 Lead (02/02/2020 4:37 PM EDT) Component Value Ref Range Test Analysis Performed Pathologis t Method Time At Signature Ventricular rate 101 BPM MUSE SYSTEM Atrial Rate 101 BPM MUSE SYSTEM P-R Interval 168 ms MUSE SYSTEM QRS Duration 92 ms MUSE SYSTEM Q-T Interval 324 ms MUSE SYSTEM QTC Calculated 420 ms MUSE SYSTEM (Bezet) Calculated P [place] 58 degrees MUSE SYSTEM Calculated R [place] 44 degrees MUSE SYSTEM Calculated T [place] 49 degrees MUSE SYSTEM INTERPRETATION Sinus tachycardia MUSE SY STEM Otherwise normal ECG No previous ECGs available Confirmed by MD Felton Daniel ([id number]) on 02/03/2020 2:42:18 PM Specimen Anatomical Collection Method Collection Time Receive d Time (Source) Location / / Volume Laterality 02/02/2020 4:37 PM 0 2:42 EDT PM EDT Kyler Hurley MD ECG ORDERABLES Performing Organization Address City/State/ZIP Code Phon e Number MUSE SYSTEM Scan, Peripheral Blood (02/02/2020 4:50 AM EDT) [facility] Method Time Signature Plat Estimate Normal [facility] RBC Morphology Abnormal [facility] Ovalocytes 1-5 /HPF [facility] Tear Drop Cells 1-5 /HPF [facility] Specimen Anatomical Collection Method Collection Time Receive d Time (Source) Location / / Volume Laterality Blood specimen 02/02/2020 4:50 AM 020 5:27 (specimen) EDT AM EDT Resulting Agency Comment Spec In Lab Myles Flor MD HEMATOLOGY ORDERABLES Performing Organization Address City/State/[place] [address] (ABNORMAL) Differential, Automated (02/02/2020 4:50 AM EDT) [facility] Method Time Signature Neutrophils % 0.4 % [facility] Neutr Abs (ANC) 0.01 1.70 - [facility] (Critical 6.10 [facility]IAL ) x10(3)/[facility] LABORATORY Lymphocytes % 37.5 % [facility] Lymphocytes Abs 0.8 (L) 0.9 - 3.2 [facility] x10(3)/[facility] LABORATORY Monocytes % 57.7 % [facility] Monocyte Abs 1.2 (H) 0.3 - 0.9 [facility] x10(3)/[facility] LABORATORY Eosinophils % 3.4 % [facility] Eosinophils Abs 0.1 0.0 - 0.4 [facility] x10(3)/[facility] LABORATORY Basophils % 1.0 % [facility] Basophils Abs 0.0 0.0 - 0.1 [facility] x10(3)/[facility] LABORATORY Immature Gran % 0.00 % [facility] Comment: Immature granulocytes(IG's)percentage an d absolute count will include metamyelocytes, myelocytes, and promyelo cytes. Blood smears from CBCs yielding IG's will be scanned manually for concor dance. If this scan disagrees with the automated IG or if promyelocytes are not ed, a manual differential will be performed. Teresa Gran Abs 0.00 0.00 - 0.04 x10(3)/[facility] Specimen Anatomical Collection Method Collection Time Receive d Time (Source) Location / / Volume Laterality Blood specimen 02/02/2020 4:50 AM 020 5:27 (specimen) EDT AM EDT Resulting Agency Comment Spec In Lab Myles Flor MD HEMATOLOGY ORDERABLES Performing Organization Address City/State/ZIP Code Phon e Number [place] [id number] (ABNORMAL) Hemogram (02/02/2020 4:50 AM EDT) Analysis Performed At Patho logist Time Signature WBC 2.1 (L) 4.0 - 9.5 [facility] x10(3)/[facility] LABORATORY RBC 3.79 (L) 4.00 - [facility] 5.21 [facility] x10(6)/[facility] Hemoglobin 10.2 (L) 11.7 - [facility] 15.5 gm/dL [facility] Hematocrit 31.9 (L) 35.7 - [facility] 45.8 % [facility] MCV 84.2 82.6 - [facility] MCH 26.9 (L) 27.1 - [facility] 32.0 pg [facility] MCHC 32.0 31.7 - [facility] 35.0 gm/dL [facility] Platelets 150 145 - 357 [facility] x10(3)/[facility] RDWSD 58.2 (H) 37.0 - [facility] [facility] RDWCV 19.0 (H) 11.5 - [facility] 14.1 % [facility] MPV 9.9 7.6 - 12.9 [facility] LABORATORY nRBC % Auto 0.0 % [facility] nRBC Abs Auto 0.000 0.000 - [facility] 0.000 [facility] x10(3)/[facility] LABORATORY Specimen Anatomical Collection Method Collection Time Receive d Time (Source) Location / / Volume Laterality Blood specimen 02/02/2020 4:50 AM 020 5:27 (specimen) EDT AM EDT Resulting Agency Comment Spec In Lab Myles Flor MD HEMATOLOGY ORDERABLES Performing Organization Address City/State/[place] [address] (ABNORMAL) Basic Metabolic Panel (non-fasting) (02/02/2020 4:50 AM EDT) P athologist Signature Glucose Lvl 93 65 - 199 [facility] mg/dL [facility] Comment: Diabetes: >=200 mg/dL plus symp toms BUN 12 8 - 18 mg/dL [facility] Creatinine 0.47 (L) 0.70 - 1.20 mg/dL [facility] LABORATORY Sodium 138 135 - 145 mmol/L [facility] Potassium 3.3 (L) 3.5 - 5.0 mmol/L [facility] Comment: Please note: ??Patients with WBC >100,00 0 may have falsely elevated Potassium levels. ??For accurate Potassium quantif ication in these patients send serum separator tube (gold top) for subsequent determinations. ??Contact the Clinical Chemistry Laboratory if there are any qu estions. Chloride 103 98 - 107 mmol/L [facility] CO2 24 22 - 31 mmol/L [facility] Anion Gap 11 5 - 15 mmol/L [facility] Calcium 8.6 8.5 - 10.5 mg/dL [facility] Estimated GFR 110 >=60 mL/min/1.73 m?? [facility] Comment: The eGFR was calculated using the CKD-EP I equation. As with all creatinine based estimates of kidney function, eGFR values calculated with the CKD-EPI equation are not accurate in patients wi th acute kidney failure, extremes of body mass or the acutely ill. [email or web address] eGFR 127 >=60 mL/min/1.73 m?? [facility] Comment: The eGFR was calculated using the CKD-EP I equation. As with all creatinine based estimates of kidney function, eGFR values calculated with the CKD-EPI equation are not accurate in patients wi th acute kidney failure, extremes of body mass or the acutely ill. [email or web address] Specimen Anatomical Collection Method Collection Time Receive d Time (Source) Location / / Volume Laterality Blood specimen 02/02/2020 4:50 AM 020 5:27 (specimen) EDT AM EDT Resulting Agency Comment Spec In Lab Myles Flor MD CHEMISTRY ORDERABLES Performing Organization Address City/[facility]/ZIP Code Phon e Number [address] Differential, Manual (02/01/2020 6:09 PM EDT) Patholo gist Method Time Signature Neutrophil % 3 % [facility] Lymphocyte % 35 % [facility] Monocyte % 57 % [facility] Eosinophil % 0 % [facility] Basophil % 5 % [facility] Tot Diff Cell 100 [facility] LABORATORY Plat Estimate Normal [facility] RBC Morphology Abnormal [facility] Specimen Anatomical Collection Method Collection Time Receive d Time (Source) Location / / Volume Laterality Blood specimen Venous Draw / 02/01/2020 6:09 PM 2019 6:09 (specimen) Unknown EDT PM EDT Resulting Agency Comment Spec In Lab Myles Flor MD HEMATOLOGY ORDERABLES Performing Organization Address City/[facility]/ZIP [facility] Phon e Number [address] (ABNORMAL) Hemogram (02/01/2020 6:09 PM EDT) P athologist Signature WBC 1.6 4.0 - 9.5 [place] (Critical) x10(3)/[facility] LABORATORY Comment: This result has been called to OCTAVIO GODOY by Catia Khan on 02 01 2020 at 1927, and has been read back. RBC 3.78 (L) 4.00 - 5.21 x10(6)/[facility] LABORATORY Hemoglobin 10.6 (L) 11.7 - 15.5 gm/dL [facility]ORY Hematocrit 31.4 (L) 35.7 - 45.8 % [facility] MCV 83.1 82.6 - 94.4 fL [facility] MCH 28.0 27.1 - 32.0 pg [facility] MCHC 33.8 31.7 - 35.0 gm/dL [facility] LABORATORY Platelets 160 145 - 357 x10(3)/[facility] LABORATORY RDWSD 57.0 (H) 37.0 - 46.0 [facility] LABORATORY RDWCV 18.9 (H) 11.5 - 14.1 % [facility] MPV 11.0 7.6 - 12.9 fL [facility] nRBC % Auto 0.0 % [facility] LABORATORY nRBC Abs Auto 0.000 0.000 - 0.000 x10(3)/[facility] LABORATORY Specimen Anatomical Collection Method Collection Time Receive d Time (Source) Location / / Volume Laterality Blood specimen Venous Draw / 02/01/2020 6:09 PM 2019 6:09 (specimen) Unknown EDT PM EDT Resulting Agency Comment Spec In Lab Myles Flor MD HEMATOLOGY ORDERABLES Performing Organization Address City/State/[place] [address] Blood culture (02/01/2020 6:05 PM EDT) [facility] gist Method Time Signature Blood Culture No growth [place] DONNA at 5 days. [facility] Specimen Anatomical Collection Method Collection Time Receive d Time (Source) Location / / Volume Laterality Blood specimen 02/01/2020 6:05 PM 020 7:05 (specimen) EDT PM EDT Comment: LFA Resulting Agency Comment Spec In Lab Tadeo Carpenter APRN MICROBIOLOGY - BLOOD ORDERAB LES Performing Organization Address City/State/ZIP Code Phon e Number [place] [id number]OS[address] LAB[address] Drive XR Chest PA & Lateral (Generic) (02/01/2020 4:43 PM EDT) Anatomical Region Laterality Modality Chest N/A Digital Radiography Specimen (Source) Anatomical Location Collection Method / Collectio n Time Received Time / Laterality Volume Impressions 02/01/2020 4:55 PM EDT No acute cardiopulmonary pathology. I have personally reviewed the image(s) and the resident's interpretation and agree with the findings, Kalee Juarez MD at 02/01/2020 4:55 PM Thank you for letting us participate in the care of this patient. For questions regarding this report, please contact e number below. ? Narrative 02/01/2020 4:55 PM EDT EXAMINATION: XR CHEST PA AND LATERAL (GENERIC) CLINICAL HISTORY: fever, cough; eval acu te process TECHNIQUE: PA and lateral views of the chest COMPARISON: None FINDINGS: The lungs are clear. No pleural effusion or pneumothorax. The cardiomediastinal silhouette, donald, and pulmonary vasculat ure are within normal limits. No significant osseous abnormalities. Procedure Note Kalee Juarez MD - 02/01/2020Formatt ing of this note might be different from the original. EXAMINATION: XR CHEST PA AND LATERAL (GE NERIC) CLINICAL HISTORY: fever, cough; eval acu te process TECHNIQUE: PA and lateral views of the chest COMPARISON: None FINDINGS: The lungs are clear. No pleural effusion or pneumothorax. The cardiomediastinal silhouette, donald, and pulmonary vasculat ure are within normal limits. No significant osseous abnormalities. IMPRESSION No acute cardiopulmonary pathology. I have personally reviewed the image(s) and the resident's interpretation and agree with the findings, Kalee Juarez MD at 02/01/2020 4:55 PM Thank you for letting us participate in the care of this patient. For questions regarding this report, please contact e number below. Tadeo Carpenter APRN IMG DX ORDERABLES (ABNORMAL) Urinalysis Microscopic Exam (02/01/2020 4:31 PM EDT) athologist Signature RBC UA 5 (H) 0 - 4 /HPF [facility] WBC UA 4 0 - 5 /HPF [facility] Squam Epith UA 4 <=4 /HPF [facility] Renal Epith UA <1 (H) <=0 /HPF [facility] Hyaline Cast 16 (H) 0 - 2 /LPF [facility] LABORATORY Specimen Anatomical Collection Method Collection Time Receive d Time (Source) Location / / Volume Laterality Urine specimen 02/01/2020 4:31 PM 020 5:00 (specimen) EDT PM EDT Resulting Agency Comment Spec In Lab Tadeo Carpenter APRN URINE ORDERABLES Performing Organization Address City/State/[place] [address] (ABNORMAL) Urinalysis with reflex Culture (02/01/2020 4:31 PM EDT) [facility] gist Method Time Signature Glucose UA Negative Negative [facility] Protein UA 100 (A) Negative [facility]/dL [facility] Bilirubin UA Negative Negative [facility] Comment: Clinical correlation required for positi ve Urine Bilirubin results as false positive may occur with some drugs and d rug related products. If a false positive is suspected a serum total bili freire should be considered if clinically indicated. Urobilinogen UA Normal Normal mg/dL [facility] pH UA 5.5 5.0 - 8.0 [facility] LABORATORY Blood UA Negative Negative mg/dL [facility] Ketones UA >=80 (Critical) Negative mg/dL [facility] Comment: Urinalysis result NOT critical without a combination of Glucose greater than or equal to 500 mg/dL AND Ketones greate r than or equal to 80 mg/dL Nitrite UA Negative Negative [facility] Leukocytes UA Negative Negative [facility] Appearance UA Clear Clear [facility] Spec [place] UA 1.029 1.006 - 1.030 [facility] Color UA Dark Yellow Yellow [facility] Culture Reflexed No [facility] Specimen Anatomical Collection Method Collection Time Receive d Time (Source) Location / / Volume Laterality Urine specimen 02/01/2020 4:31 PM 020 5:00 (specimen) EDT PM EDT Resulting Agency Comment Spec In Lab Tadeo Bacaicoa SUPERVISOR URANIUM PROCESSING URINE ORDERABLES Performing Organization Address City/[facility]/[place] [address] Blue Tube HOLD (02/01/2020 4:25 PM EDT) P athologist Signature Blue Hold Sample in [facility] LABORATORY Specimen Anatomical Collection Method Collection Time Receive d Time (Source) Location / / Volume Laterality Blood specimen Venous Draw / 02/01/2020 4:25 PM 2019 4:43 (specimen) Unknown EDT PM EDT Tadeo Bacaicoa SUPERVISOR URANIUM PROCESSING HEMATOLOGY ORDERABLES Performing Organization Address City/[facility]/[place] [address] Hemogram (02/01/2020 4:25 PM EDT) P athologist Signature WBC Clotted 4.0 - 9.5 [facility] Comment: This result has been called to CLARICE Malcolm by Catia Khan on 02 01 2020 at 1703, and has been read back. Specimen was found to have been clotted. Notified Waelska Ennis at 17:35 on 02/01/20 of cancellation and requested re draw. ajv. This result has been called to CLARICEUrban Malcolm by Catia Khan on 02 01 2020 at 1703, and has been read back. Corrected from 1.6 x10(3)/mcL [CRIT] on 02/01/20 17:41:52 EDT by Padmini Rizvi RBC Clotted 4.00 - 5.21 [facility] Comment: Specimen was found to have been clotted. Notified Waleska Ennis at 17:35 on 02/01/20 of cancellation and requested re draw. ajv. Corrected from 4.09 x10(6)/mcL on 17:41:52 EDT by Padmini Rizvi Hemoglobin Clotted 11.7 - 15.5 [facility] Comment: Specimen was found to have been clotted. Notified Waleska Ennis at 17:35 on 02/01/20 of cancellation and requested re draw. ajv. Corrected from 11.3 gm/dL [LOW] on 01/31 17:41:52 EDT by Padmini Rizvi Hematocrit Clotted 35.7 - 45.8 [facility] Comment: Specimen was found to have been clotted. Notified Waleska Ennis at 17:35 on 02/01/20 of cancellation and requested re draw. ajv. Corrected from 34.2 % [LOW] on 02/01/20 17:41:52 EDT by Padmini Rizvi. MCV Clotted 82.6 - 94.4 [facility] Comment: Specimen was found to have been clotted. Notified Waleska Ennis at 17:35 on 02/01/20 of cancellation and requested re draw. ajv. Corrected from 83.6 fL on 02/01/20 17:41 :52 EDT by Padmini Rizvi MCH Clotted 27.1 - 32.0 [facility] Comment: Specimen was found to have been clotted. Notified Waleska Ennis at 17:35 on 02/01/20 of cancellation and requested re draw. ajv. Corrected from 27.6 pg on 02/01/20 17:41 :52 EDT by Padmini Rizvi MCHC Clotted 31.7 - 35.0 [facility] Comment: Specimen was found to have been clotted. Notified Waleska Ennis at 17:35 on 02/01/20 of cancellation and requested re draw. ajv. Corrected from 33.0 gm/dL on 02/01/20 17 :41:52 EDT by Padmini Rizvi Platelets Clotted 145 - 357 [facility] Comment: Specimen was found to have been clotted. Notified Waleska Ennis at 17:35 on 02/01/20 of cancellation and requested re draw. ajv. Corrected from 175 x10(3)/mcL on 0 17:41:52 EDT by Padmini Rizvi RDWSD Clotted 37.0 - 46.0 [facility] Comment: Specimen was found to have been clotted. Notified Waleska Ennis at 17:35 on 02/01/20 of cancellation and requested re draw. ajv. Corrected from 56.8 fL [HI] on 02/01/20 17:41:52 EDT by Padmini Rizvi RDWCV Clotted 11.5 - 14.1 [facility] Comment: Specimen was found to have been clotted. Notified Waleska Ennis at 17:35 on 02/01/20 of cancellation and requested re draw. ajv. Corrected from 18.7 % [HI] on 02/01/20 1 7:41:52 EDT by Padmini Rizvi MPV Clotted 7.6 - 12.9 [facility] Comment: Specimen was found to have been clotted. Notified Waleska Raymon at 17:35 on 02/01/20 of cancellation and requested re draw. ajv. Corrected from 11.3 fL on 02/01/20 17:41 :52 EDT by Padmini Rizvi nRBC % Auto Clotted [facility] Comment: Specimen was found to have been clotted. Notified Waleska Raymon at 17:35 on 02/01/20 of cancellation and requested re draw. ajv. Corrected from 0.0 % [NA] on 02/01/20 17 :41:52 EDT by Padmini Rizvi nRBC Abs Auto Clotted 0.000 - 0.000 [facility] Comment: Specimen was found to have been clotted. Notified Waleska Raymon at 17:35 on 02/01/20 of cancellation and requested re draw. ajv. Corrected from 0.000 x10(3)/mcL on 01/31 17:41:52 EDT by Padmini Rizvi Specimen Anatomical Collection Method Collection Time Receive d Time (Source) Location / / Volume Laterality Blood specimen 02/01/2020 4:25 PM 020 4:41 (specimen) EDT PM EDT Resulting Agency Comment Spec In Lab Tadeo Carpenter APRN HEMATOLOGY ORDERABLES Performing Organization Address City/State/[place] [address] Hepatic Function Panel (02/01/2020 4:25 PM EDT) athologist Signature Total Protein 6.4 6.1 - 8.0 [facility] gm/dL [facility] Albumin 3.9 3.2 - 5.2 [place] gm/dL [facility] AST 22 0 - 30 [facility] unit/L [facility] ALT 21 0 - 30 [facility] unit/L [facility] Alk Phos 57 35 - 105 [facility] unit/L [facility] Total 0.5 0.2 - 1.3 [facility] Bilirubin mg/dL [facility] Bili, Direct 0.2 0.0 - 0.3 [place] mg/dL [facility] Specimen Anatomical Collection Method Collection Time Receive d Time (Source) Location / / Volume Laterality Blood specimen 02/01/2020 4:25 PM 020 4:41 (specimen) EDT PM EDT Resulting Agency Comment Spec In Lab Tadeourban Plataaicoa SUPERVISOR URANIUM PROCESSING CHEMISTRY ORDERABLES Performing Organization Address City/[facility]/[place] [address] Blood culture (02/01/2020 4:25 PM EDT) Patholo gist Method Time Signature Blood Culture No growth [place] at 5 days. [facility] Specimen Anatomical Collection Method Collection Time Receive d Time (Source) Location / / Volume Laterality Blood specimen 02/01/2020 4:25 PM 020 4:59 (specimen) EDT PM EDT Comment: RAC Resulting Agency Comment Spec In Lab Tadeo Plataaicoa SUPERVISOR URANIUM PROCESSING MICROBIOLOGY - BLOOD ORDERAB LES Performing Organization Address City/[facility] [place] [address] (ABNORMAL) Basic Metabolic Panel (non-fasting) (02/01/2020 4:25 PM EDT) P athologist Signature Glucose Lvl 103 65 - 199 [facility] mg/dL [facility] Comment: Diabetes: >=200 mg/dL plus symp toms BUN 11 8 - 18 mg/dL [facility] Creatinine 0.51 (L) 0.70 - 1.20 mg/dL [facility] Sodium 136 135 - 145 mmol/L [facility] Potassium 3.2 (L) 3.5 - 5.0 mmol/L [facility] Comment: Please note: ??Patients with WBC >100,00 0 may have falsely elevated Potassium levels. ??For accurate Potassium quantif ication in these patients send serum separator tube (gold top) for subsequent determinations. ??Contact the Clinical Chemistry Laboratory if there are any qu estions. Chloride 100 98 - 107 mmol/L [facility] CO2 26 22 - 31 mmol/L [facility] Anion Gap 10 5 - 15 mmol/L [facility] Calcium 8.5 8.5 - 10.5 mg/dL [facility] Estimated GFR 107 >=60 mL/min/1.73 m?? [facility] Comment: The eGFR was calculated using the CKD-EP I equation. As with all creatinine based estimates of kidney function, eGFR values calculated with the CKD-EPI equation are not accurate in patients wi th acute kidney failure, extremes of body mass or the acutely ill. [email or web address] eGFR 124 >=60 mL/min/1.73 m?? [facility] Comment: The eGFR was calculated using the CKD-EP I equation. As with all creatinine based estimates of kidney function, eGFR values calculated with the CKD-EPI equation are not accurate in patients wi th acute kidney failure, extremes of body mass or the acutely ill. [email or web address] Specimen Anatomical Collection Method Collection Time Receive d Time (Source) Location / / Volume Laterality Blood specimen 02/01/2020 4:25 PM 020 4:41 (specimen) EDT PM EDT Resulting Agency Comment Spec In Lab Tadeo Carpenter APRN CHEMISTRY ORDERABLES Performing Organization Address City/State/[place] [address] documented in this encounter Visit Diagnoses Diagnosis Neutropenic fever - Primary Neutropenia, unspecified Anemia, unspecified type documented in this encounter Admitting Diagnoses Diagnosis Neutropenic fever Neutropenia, unspecified documented in this encounter Administered Medications Inactive Administered Medications - up to 3 most recent administrations Medication Order MAR Action Action Date Dose Rate Site acetaminophen (Tylenol) tablet Given 02/01/2020 4:22 PM EDT 1,00 0 mg 1,000 mg 1,000 mg, Oral, ONCE, 1 dose, On Fri02/01/20 at 1614, Maximum dose of acetaminophen is 4000 mg from all sources in 24 hours. When ordered for pain, acetaminophen should be given even when other ordered pain medications are indicated. , STAT acetaminophen (Tylenol) tablet 650 mg Given 02/03/2020 9:05 AM EDT 650 mg 650 mg, Oral, EVERY 6 HOURS PRN, Starting on Fri02/01/20 at 2217, Until Fri02/04/20 at 2002, Pain, Fever, Administer for temperature greater than or equal to 38.2 degrees celsius. Maximum daily dose of acetaminophen from all sources not to exceed 4,000 mg., Routine Given 02/02/2020 5:19 PM EDT 650 mg Given 02/02/2020 9:34 AM EDT 650 mg ceFEPime (MAXIPIME) 2g vial attach to New Bag 02/03/2020 10:55 AM EDT 2 g 200 mL/hr sodium chloride 0.9% 100 mL Mini-Bag Plus 2 g, Intravenous, EVERY 8 HOURS, First dose on Fri02/01/20 at 1818, Until Discontinued, Administer over 30 Minutes, Indication for (Active or Suspected): Neutropenic Fever New Bag 02/03/2020 3:11 AM EDT 2 g 200 mL/hr New Bag 02/02/2020 5:19 PM EDT 2 g 200 mL/hr enoxaparin (LOVENOX) injection 40 mg Given 02/02/2020 8:39 PM EDT 40 mg 40 mg, Subcutaneous, NIGHTLY, First dose (after last modification) on Fri02/02/20 at 2100, Until Discontinued, Routine iohexoL (Omnipaque) 350 mg/mL solution 0-200 Given 11:29 PM EDT 66 mLs mL 0-200 mL, Intravenous, ONCE PRN, 1 dose, Starting on Fri02/02/20 at 2325, Until Fri02/02/20 at 232, Per Protocol, Warning Vesicant/Irritant Medication , Radiology Contrast, Routine iohexoL (Omnipaque) 350 mg/mL solution 0 -50 mL 0-50 mL, Oral, ONCE PRN, 1 dose, Startin g on Fri02/02/20 at 2329, Until Fri02/04/20 at 2002, Per Protocol, Warning Vesicant/Irritant Me dication , Radiology Contrast, Routine iohexol (OMNIPAQUE) radiology oral prep (50 Given 01/11 8:40 PM EDT 240 mLs mL of oral contrast) 240 mL, Oral, ONCE, 1 dose, On Fri02/02/20 at 2115, 8 ounce cup = 240 mL of contrast 3 hours before scan as tolerated. The patient should not eat food or drink any other liquids during the entire period in which they are drinking the contrast. Mix 1 bottle (50 mL) of Omnipaque 350 with 1 liter (1,000 mL) non-carbonated beverage (preferably water). Close cover and shake vigorously and then refrigerate, if desired. Dispose of any excess preparation in a sink. Properly dispose of container., Routine iohexol (OMNIPAQUE) radiology oral prep (50 Given 01/11 9:30 PM EDT 240 mLs mL of oral contrast) 240 mL, Oral, ONCE, 1 dose, On Fri02/02/20 at 2145, 8 ounce cup = 240 mL of contrast 2 hours before scan as tolerated. The patient should not eat food or drink any other liquids during the entire period in which they are drinking the contrast. Mix 1 bottle (50 mL) of Omnipaque 350 with 1 liter (1,000 mL) non-carbonated beverage (preferably water). Close cover and shake vigorously and then refrigerate, if desired. Dispose of any excess preparation in a sink. Properly dispose of container., Routine iohexol (OMNIPAQUE) radiology oral prep (50 Given 01/11 10:30 PM EDT 240 mLs mL of oral contrast) 240 mL, Oral, ONCE, 1 dose, On Fri02/02/20 at 2245, 8 ounce cup = 240 mL of contrast 1 hours before scan as tolerated. The patient should not eat food or drink any other liquids during the entire period in which they are drinking the contrast. Mix 1 bottle (50 mL) of Omnipaque 350 with 1 liter (1,000 mL) non-carbonated beverage (preferably water). Close cover and shake vigorously and then refrigerate, if desired. Dispose of any excess preparation in a sink. Properly dispose of container., Routine iohexol (OMNIPAQUE) radiology oral prep (50 Given 01/11 11:00 PM EDT 240 mLs mL of oral contrast) 240 mL, Oral, ONCE, 1 dose, On Fri02/02/20 at 2315, 8 ounce cup = 240 mL of contrast 20 minutes before scan as tolerated. The patient should not eat food or drink any other liquids during the entire period in which they are drinking the contrast. Mix 1 bottle (50 mL) of Omnipaque 350 with 1 liter (1,000 mL) non-carbonated beverage (preferably water). Close cover and shake vigorously and then refrigerate, if desired. Dispose of any excess preparation in a sink. Properly dispose of container., Routine ondansetron (ZOFRAN) injection 4-8 mg 4-8 mg, Intravenous, EVERY 8 HOURS PRN, Starting on Fri02/01/20 at 2217, Until Fri02/04/20 at 2002, Nausea, Start with 4mg and if ineffective in 30 minutes, give an additional 4mg If multiple antiemetic s are ordered, give ondansetron first. ondansetron (Zofran) tablet 4-8 mg 4-8 mg, Oral, EVERY 8 HOURS PRN, Startin g on Fri02/01/20 at 2217, Until Fri02/04/20 at 2002, Nausea, Vomiting, If multiple antiemetics are ordered, use ondansetron first. PO Preferred. If patient unable to take PO, may give IV if ordered. Start with 4mg and if ineffective in 45 minutes, give an add itional 4mg. If unable to take PO, may give IV., Routine piperacillin-tazobactam (ZOSYN) New Bag 02/04/2020 9:58 AM 3.375 g 12.5 mL/hr 3.375 g vial attach to sodium EDT chloride 0.9% 50 mL Mini-Bag Plus 3.375 g, Intravenous, EVERY 8 HOURS, First dose on Blossom 02/03/20 at 1730, Until Discontinued, Administer over 4 Hours, Warning Vesicant/Irritant Medication Do not administer or Y-site with lactated ringers., Indication for (Active or Suspected): GI/Intra-abdominal New Bag 02/04/2020 1:32 AM EDT 3.375 g 12.5 mL/hr New Bag 02/03/2020 6:28 PM EDT 3.375 g 12.5 mL/hr potassium chloride ER (K-Dur/Klor-Con) Given 02/03/2020 10:56 AM EDT 40 mEq tablet 40 mEq 40 mEq, Oral, EVERY 4 HOURS, 2 doses, First dose on Fri02/03/20 at 0645, Last dose on Fri02/03/20 at 1045, 20 mEq tablet may be dissolved in water for administration, Routine Given 02/03/2020 6:35 AM EDT 40 mEq potassium chloride ER (K-Dur/Klor-Con) tablet Given 6:29 PM EDT 40 mEq 40 mEq 40 mEq, Oral, ONCE, 1 dose, On Fri02/03/20 at 1845, 20 mEq tablet may be dissolved in water for administration, Routine sodium chloride 0.9 % (flush) flush 5 mL Given 02/04/2020 9:58 AM EDT 10 mLs 5 mL, Intravenous, 2 TIMES DAILY, First dose on Fri02/01/20 at 2315, Until Discontinued, Routine Given 02/03/2020 9:32 PM EDT 5 mLs Given 02/03/2020 9:05 AM EDT 5 mLs valACYclovir (Valtrex) tablet 1,000 mg Given 02/04/2020 9:00 AM EDT 1,000 mg 1,000 mg, Oral, 2 TIMES DAILY, 14 doses, First dose (after last modification) on Fri02/02/20 at 2100, Last dose on Fri02/09/20 at 0900, Routine Given 02/03/2020 9:32 PM EDT 1,000 mg Given 02/03/2020 10:55 AM EDT 1,000 mg zinc sulfate (Zincate) capsule 220 mg Given 02/04/2020 9:50 AM EDT 220 mg 220 mg, Oral, DAILY, First dose on Fri02/03/20 at 1600, Until Discontinued, Routine documented in this encounter Active and Recently Administered Medications Times are shown in EDT. Scheduled Medication Order 02/02/2020 02/03/2020 02/04/2020 ceFEPime (MAXIPIME) 2g vial attach to so dium chloride 0.9% 100 mL Mini-Bag Plus (CANCELED) 0148 (New Bag - Provider: Telma carrillo RN)0218 (Stopped - Provider: Telma Fair RN)0934 (New Bag - Provider: Marry López RN)1004 (Stopped - Provider: Marry López RN)1719 (New Bag - Provider: Marry López RN) 0311 (New Bag - Provider: Tiera North ch, RN)0341 (Stopped - Provider: Tiera Ware RN)1055 (New Bag - Provider: Iron Tovar RN)1125 (Stopped - Provider: Iron Tovar RN) 2 g, Intravenous, EVERY 8 HOURS, First d ose on Fri02/01/20 at 1818, Until Discontinued, Administer over 30 Minutes, Indication for (Active or Suspected): Neutropenic Fever 174 (Stopped - Provider: Marry López RN) docusate sodium (Colace) capsule 100 mg 0934 (Not Give n - Provider: Marry López RN - Reason: Patient/family refused)2099 (Not Given - Provider: Tiera Ware RN - Reason: Patient/family refused) 09 (Not Given - Provider: Iron Tovar RN - Reason: Patient/family refused)2099 (Not Given - Provider: Tiera Ware RN - Reason: Patient/family refused) 0945 (Not Given - Provider: Birdie Henley RN - Reason: Patient/family refused) 100 mg, Oral, 2 TIMES DAILY, First dose on Fri02/01/20 at 2315, Until Discontinued, Routine enoxaparin (LOVENOX) injection 40 mg 2038 (Given - Pro vider: Tiera Ware RN) 2131 (Not Given - Provider: Tiera lao RN - Reason: Patient/family refused) 40 mg, Subcutaneous, NIGHTLY, First dose (after last modification) on Fri02/02/20 at 2100, Until Discontinued, Routine iohexol (OMNIPAQUE) radiology oral prep (50 mL of oral contrast) (COMPLETED) 2039 (Given - Provider: Tiera Ware RN) 240 mL, Oral, ONCE, 1 dose, Fri02/02/20 at 2115, 8 ounce cup = 240 mL of contrast 3 hours before scan as tolerated. The patient should not eat food or drink any other liquids during the entire period in which they are drinking the contrast. M ix 1 bottle (50 mL) of Omnipaque 350 with 1 liter (1,000 mL) non-carbonated beverage (preferably water). Close cover and shake vigorously and then refrigerate, if desired. Dispose of any excess preparat ion in a sink. Properly dispose of container., Routine iohexol (OMNIPAQUE) radiology oral prep (50 mL of oral contrast) (COMPLETED) 2129 (Given - Provider: Tiera Ware RN) 240 mL, Oral, ONCE, 1 dose, Fri02/02/20 at 2145, 8 ounce cup = 240 mL of contrast 2 hours before scan as tolerated. The patient should not eat food or drink any other liquids during the entire period in which they are drinking the contrast. M ix 1 bottle (50 mL) of Omnipaque 350 with 1 liter (1,000 mL) non-carbonated beverage (preferably water). Close cover and shake vigorously and then refrigerate, if desired. Dispose of any excess preparat ion in a sink. Properly dispose of container., Routine iohexol (OMNIPAQUE) radiology oral prep (50 mL of oral contrast) (COMPLETED) 2229 (Given - Provider: Tiera Ware RN) 240 mL, Oral, ONCE, 1 dose, Fri02/02/20 at 2245, 8 ounce cup = 240 mL of contrast 1 hours before scan as tolerated. The patient should not eat food or drink any other liquids during the entire period in which they are drinking the contrast. M ix 1 bottle (50 mL) of Omnipaque 350 with 1 liter (1,000 mL) non-carbonated beverage (preferably water). Close cover and shake vigorously and then refrigerate, if desired. Dispose of any excess preparat ion in a sink. Properly dispose of container., Routine iohexol (OMNIPAQUE) radiology oral prep (50 mL of oral contrast) (COMPLETED) 2299 (Given - Provider: Tiera Ware RN) 240 mL, Oral, ONCE, 1 dose, Fri02/02/20 at 2315, 8 ounce cup = 240 mL of contrast 20 minutes before scan as tolerated. The patient should not eat food or drink any other liquids during the entire period in which they are drinking the contrast . Mix 1 bottle (50 mL) of Omnipaque 350 with 1 liter (1,000 mL) non-carbonated beverage (preferably water). Close cover and shake vigorously and then refrigerate, if desired. Dispose of any excess prepa ration in a sink. Properly dispose of container., Routine piperacillin-tazobactam (ZOSYN) 3.375 g vial attach to sodium chloride 0.9% 50 mL Mini-Bag Plus 1828 (New Bag - Provider: Gonzalez RN)2228 (Stopped - Provider: Tiera Ware RN) 0132 (New Bag - Provider: Tiera North ch, RN)0532 (Stopped - Provider: Tiera Ware RN)0958 (New Bag - Provider: Birdie Henley, CLARKE)1358 (Stopped - Provider: Iron Tovar RN) 3.375 g, Intravenous, EVERY 8 HOURS, Fir st dose on Blossom 02/03/20 at 1730, Until Discontinued, Administer over 4 Hours, Warning Vesicant/Irritant Medication Do not administer or Y-site with lactated 1730 (Not Given - Provider: Iron Tovar RN - Reason: Patient not available - Comment: Discharging patient) ringers., Indication for (Active or Suspected): GI/Intra-abdomin al potassium chloride ER (K-Dur/Klor-Con) tablet 40 mEq (COMPLE IVONNE) 0635 (Given - Provider: Tiera Ware RN)1056 (Given - Provider: Iron Tovar RN) 40 mEq, Oral, EVERY 4 HOURS, 2 doses, Fi rst dose on Blsosom 02/03/20 at 0645, Last dose on Blossom 02/03/20 at 1045, 20 mEq tablet may be dissolved in water for administration, Routine potassium chloride ER (K-Dur/Klor-Con) tablet 40 mEq (COMPLE IVONNE) 1829 (Given - Provider: Iron Tovar RN) 40 mEq, Oral, ONCE, 1 dose, Blossom 02/03/20 at 1845, 20 mEq tablet may be dissolved in water for administration, Routine sodium chloride 0.9 % (flush) flush 5 mL 0936 (Given - Provider: Marry López RN)2039 (Given - Provider: Tiera Ware RN) 0905 (Given - Provider: Iron Tovar RN)2132 (Given - Provider: Tiera Ware RN) 0958 (Given - Provider: Birdie Henley RN) 5 mL, Intravenous, 2 TIMES DAILY, First dose on Fri02/01/20 at 2315, Until Discontinued, Routine valACYclovir (Valtrex) tablet 1,000 mg 2038 (Given - P rovider: Tiera Ware RN) 0906 (Not Given - Provider: Iron stewart RN - Reason: Patient/family refused)1055 (Given - Provider: Iron Tovar RN)2132 (Given - Provider: Tiera Ware RN) 0900 (Given - Provider: Birdie Henley RN) 1,000 mg, Oral, 2 TIMES DAILY, 14 doses, First dose (after last modification) on Fri02/02/20 at 2100, Last dose on Fri02/09/20 at 0900, Routine zinc sulfate (Zincate) capsule 220 mg 16 00 (Not Given - Provider: Iron Tovar RN - Reason: Patient/family refused - Comment: pt will begin tomorrow) 0950 (Given - Provider: Birdie Henley RN) 220 mg, Oral, DAILY, First dose on Fri at 1600, Until Discontinued, Routine PRN Medication Order 02/02/2020 02/03/2020 02/04/2020 acetaminophen (Tylenol) tablet 650 mg 0149 (Given - Pr ovider: Telma Fair RN)0934 (Given - Provider: Marry López RN)1719 (Given - Provider: Marry López RN) 0905 (Given - Provider: Iron Tovar RN - Comment: for fever 38.4) 650 mg, Oral, EVERY 6 HOURS PRN, Startin g Fri02/01/20 at 2217, Until Fri02/04/20 at 2003, Pain, Fever, Administer for temperature greater than or equal to 38.2 degrees celsius. Maximum daily dose of vicky taminophen from all sources not to exceed 4,000 mg., Routine iohexoL (Omnipaque) 350 mg/mL solution 0-200 mL (COMPL ETED) 2328 (Given - Provider: Murphy Ordonez) 0-200 mL, Intravenous, ONCE PRN, 1 dose, Starting Fri02/02/20 at 2325, Until Fri02/02/20 at 2329, Per Protocol, Warning Vesicant/Irritant Medication , Radiology Contrast, Routine iohexoL (Omnipaque) 350 mg/mL solution 0-50 mL 0-50 mL, Oral, ONCE PRN, 1 dose, Startin g Fri02/02/20 at 2329, Until Fri02/04/20 at 2002, Per Protocol, Warning Vesicant/Irritant Medication , Radiology Contrast, Routine lidocaine (XYLOCAINE) 10 mg/mL (1 %) injection 3 mg 3 mg (0.3 mL), Subcutaneous, ONCE PRN, 1 dose, Starting Fri02/01/20 at 221, Until Fri02/04/20 at 2002, for discomfort with PIV insertion, Routine melatonin tablet 3 mg 3 mg, Oral, NIGHTLY PRN, Starting Fri at 2216, Until Fri02/04/20 at 2002, Sleep, Routine ondansetron (ZOFRAN) injection 4-8 mg(Linked Group 1) 4-8 mg, Intravenous, EVERY 8 HOURS PRN, Starting Fri02/01/20 at 221, Until Fri02/04/20 at 2002, Nausea, Start with 4mg and if ineffective in 30 minutes, give an additional 4mg If multiple antiemetics are ordered, give ondansetron first. ondansetron (Zofran) tablet 4-8 mg(Linked Group 1) 4-8 mg, Oral, EVERY 8 HOURS PRN, Startin g Fri02/01/20 at 221, Until Fri02/04/20 at 2002, Nausea, Vomiting, If multiple antiemetics are ordered, use ondansetron first. PO Preferred. If patient unabl e to take PO, may give IV if ordered. St art with 4mg and if ineffective in 45 minutes, give an additional 4mg. If unable to take PO, may give IV., Routine sodium chloride 0.9 % (flush) flush 5-20 mL 5-20 mL, Intravenous, EVERY 1 MIN PRN, S tarting Fri02/01/20 at 221, Until Fri02/04/20 at 2002, flush, Flush pertains to all indwelling lines. Flush per protocol found in the job aid using the link provided on this medication record., Routine Linked Groups Order Group 1: ondansetron (Zofran) tablet 4-8 mgJump to med 4-8 mg, Oral, EVERY 8 HOURS PRN, Startin g Fri02/01/20 at 2216, Until Fri02/04/20 at 2002, Nausea, Vomiting
If multiple antiemetics are ordered, use ondansetron first. PO Preferred . If patient unable to take PO, may give IV if ordered. Start with 4mg and if ineffective in 45 minutes, give an additional 4mg. If unable to take PO, may give IV.
Routine Or ondansetron (ZOFRAN) injection 4-8 mgJump to med 4-8 mg, Intravenous, EVERY 8 HOURS PRN, Starting Fri02/01/20 at 2216, Until Fri02/04/20 at 2002, Nausea
Start with 4mg and if ineffective in 30 minutes, give an additional 4mg If mu ltiple antiemetics are ordered, give ond ansetron first.
documented in this encounter Additional Health Concerns Infection Onset Date Last Indicated Resolved Time Rule Out Respiratory 02/03/2020 02/03/2020 02/03/2020 6:45 PM EDT Rule Out C. difficile 02/04/2020 02/04/2020 02/04/2020 2:16 PM EDT Rule Out C. difficile 02/04/2020 02/04/2020 02/04/2020 4:04 PM EDT documented as of this encounter Care Teams Chief Warden Relationship Specialty Start Date End Date Irving Wheeler MD PCP - General 06/23/[address] [place] [id number] documented as of this encounter
--- OUTSIDE RECORDS SUMMARY | 2022-02-01 00:28 | XMS_ITS | Encounter Summary ---
:1960 Author Organization [facility] [place] [address] Care Team Providers Name Role Phone Irving Wheeler MD Primary Care Provider [phone] Reason for Visit Reason Comments Specialty Pharmacy Review Imatinib Encounter Details Date Type Department Care Team Description 12/14/2019 Specialty Pharmacy Pharmacy at [facility] (Ant mclaughlin) [place] [id number] Social History Tobacco Use Types Packs/Day Years [...] Oncology Morris Dozier MD [facility] ONCOLOGY [place], [place] [address] (Wo rk) documented as of this encounter Goals Goal Patient Goal Associated Recent Patient-Stated? Author Type Problems Progress DH Home Medication Patient No Tamera calvillo, Compliance and Facing Brandt Morin Understanding Action Plan [facility] Note: Formatting of this note might be d ifferent from the original. Remain 95% adherent to Imatinib therapy without significant neutropenia as assessed by CBC labs in clinic every 1 to 3 months documented as of this encounter Visit Diagnoses Not on filedocumented in this encounter Care Teams Career Development Facilitator Relationship Specialty Start Date End Date Irving Wheeler MD PCP - General 06/23/[address] [place] [id number] documented as of this encounter
--- OUTSIDE RECORDS SUMMARY | 2022-02-01 00:28 | XMS_ITS | Encounter Summary ---
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 Has always been of robust health so surprised with diagnosis. Noticed no difference with start of treatment. Appetite is good. Reports that she eats a very balanced diet--includes red meat but not very much. Raises own meat, leafy veg and root veg from own garden. Consumes grains--bread/pizza likes. Cut down a little on grains--and although she favors healthy diet she also enjoys food ie pint of ice cream if she wishes. Concerned about sugar and cancer. She does include Broth, nutrient dense--cup in am and in between lunch and dinner. Understands to include kcal and nutrient dense foods in her diet. Bowels were constipated for some weeks - bloated/hard stool and distended abdomen and this has subsided in the last three to four weeks. Reports previously she could tolerate usual portion sizes but when learned about tumor and size of tumor--she has backed off on portion sizes out of concern. Denies nausea/queasiness Denies taste changes. Iron 50mg/Day - tolerates without issue Vit D 2000 IU/D Tolerates iron Activity: depends on how well she sleeps/stress Sleep has significantly improved--sleeping better but not each night Observing self lately--quite active, walk dogs, energy level is good Wt Readings from Last 3 Encounters: 12/14/19 52.2 kg (115 lb) 12/07/19 53.5 kg (118 lb) 12/06/19 53.5 kg (118 lb) Never had weight problem but in last 2-3 years--found that her metabolism increased and if she skipped meals, more likely to lose weight. Will send information regarding meeting kcal and protein needs, healthy high kcal shakes and smoothies, handout on Sugar feeds [place]. Will request telephone visit in two months to check in. documented in this encounter Plan of Treatment Upcoming Encounters Date Type Specialty Care Team Description 02/15/2022 Office Visit Hematology and Oncology Morris Dozier MD [facility] [place], [place] [address] (Wo rk) documented as of this encounter Goals Goal Patient Goal Associated Recent Patient-Stated? Author Type Problems Progress DH Home Medication Patient No Tamera calvillo, Compliance and Facing Brandt Morin, Understanding Action Plan [facility] Note: Formatting of this note might be d ifferent from the original. Remain 95% adherent to Imatinib therapy without significant neutropenia as assessed by CBC labs in clinic every 1 to 3 months documented as of this encounter Visit Diagnoses Not on filedocumented in this encounter Care Teams Licensing Director Relationship Specialty Start Date End Date Irving Wheeler MD PCP - General 06/23/[address] [place] [id number] documented as of this encounter
--- OUTSIDE RECORDS SUMMARY | 2022-02-01 00:28 | XMS_ITS | Encounter Summary ---
:1960 Author Organization [facility] [place] [address] Care Team Providers Name Role Phone Irving Wheeler MD Primary Care Provider [phone] Encounter Details Date Type Department Care Team Description 02/04/2020 Orders Only Hematology and Gwen [place], Malignant Oncology [place] [facility] [place] gastrointestinal stromal [facility] ONE MEDICAL tumor (GI ST) [facility] [address] [place] H[place]OLOGY AND [phone] ONCOLOGY [phone] [place], [place] [address] Social History Tobacco Use Types [...] Visit Hematology and Oncology Morris Dozier MD [facility] [address] [place], [place] [address] (Wo rk) documented as of [...] of small intestine documented in this encounter Additional Health Concerns Infection Onset Date Last Indicated Resolved Time Rule Out C. difficile 02/04/2020 02/04/2020 02/04/2020 2:16 PM EDT Rule Out C. difficile 02/04/2020 02/04/2020 02/04/2020 4:04 PM EDT documented as of this encounter Care Teams Saturator Relationship Specialty Start Date End Date Ivring Wheeler MD PCP - General 06/23/[address] [place] [id number] documented as of this encounter
--- OUTSIDE RECORDS SUMMARY | 2022-02-01 00:28 | XMS_ITS | Encounter Summary ---
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 evrtvb-[id number] Take 1-2 capsules by 270 capsule 3 1 01/26/2021 (Creon 24) mouth 3 times daily 24,000-76,000 -120,000 [...] for Pain (FOR PAIN UNCONTROLLED BY TYLENOL). valACYclovir (VALTREX) Take 1 tablet by 10 tablet 0 020 02/09/2020 1 gram Tablet mouth 2 times daily for 5 days. MAGNESIUM CARBONATE Take 325 mg by mouth 0 03/01/2020 ORAL daily. omeprazole (PriLOSEC) Take 40 mg by mouth 0 03/29/2020 40 mg Capsule, Delayed Daily. Release(E.C.) documented as of this encounter Plan of Treatment Upcoming Encounters Date Type Specialty Care Team Description 02/15/2022 Office Visit Hematology and Oncology Morris Dozier MD [facility] ONCOLOGY [place], [place] [address] (Wo rk) documented as of [...] Procedure Name Priority Date/Time Associated Comments Diagnosis HEMOGRAM Routine 02/08/2020 10:01 GIST Results for this AM EDT (gastrointestinal procedure are in stromal tumor) of the result s small bowel, section. malignant DIFFERENTIAL, Routine 02/08/2020 10:01 GIST Results fo r this AUTOMATED AM EDT (gastrointestinal procedure are in stromal tumor) of the result s small bowel, section. malignant HC IRON BINDING Routine 02/08/2020 10:01 GIST Results for this CAPACITY AM EDT (gastrointestinal procedure are in stromal tumor) of the result s small bowel, section. malignant Other iron deficiency anemia HC CBC,PLT & AUTO DIFF Routine 02/08/2020 10:01 GIST AM EDT (gastrointestinal stromal tumor) of small bowel, malignant HC VENIPUNCTURE Routine 02/08/2020 10:01 GIST Results for this AM EDT (gastrointestinal procedure are in stromal tumor) of the result s small bowel, section. malignant Other iron deficiency anemia COMPREHENSIVE Routine 02/08/2020 10:01 GIST Results fo r this METABOLIC PANEL AM EDT (gastrointestinal procedu re are in (NON-FASTING) stromal tumor) of the resul ts small bowel, section. malignant documented in this encounter Results Differential, Automated (02/08/2020 10:01 AM EDT) P athologist Signature Neutrophils % 63.4 % [facility] Neutr Abs (ANC) 2.95 1.70 - [facility] 6.10 [facility] x10(3)/[facility] LABORATORY Lymphocytes % 26.0 % [facility] Lymphocytes Abs 1.2 0.9 - 3.2 [facility] x10(3)/[facility] LABORATORY Monocytes % 9.0 % [facility] Monocyte Abs 0.4 0.3 - 0.9 [facility] x10(3)/[facility] LABORATORY Eosinophils % 0.6 % [facility] Eosinophils Abs 0.0 0.0 - 0.4 [facility] x10(3)/[facility] LABORATORY Basophils % 0.4 % [facility] Basophils Abs 0.0 0.0 - 0.1 [facility] x10(3)/[facility] LABORATORY Immature Gran % 0.60 % [facility] Comment: Immature granulocytes(IG's)percentage an d absolute count will include metamyelocytes, myelocytes, and promyelo cytes. Blood smears from CBCs yielding IG's will be scanned manually for concor dance. If this scan disagrees with the automated IG or if promyelocytes are not ed, a manual differential will be performed. Teresa Gran Abs 0.03 0.00 - 0.04 x10(3)/[facility] LABORATORY Specimen Anatomical Collection Method Collection Time Receive d Time (Source) Location / / Volume Laterality Blood specimen 02/08/2020 10:01 0 (specimen) AM EDT 10:06 AM EDT Resulting Agency Comment Spec In Lab Morris Dozier MD HEMATOLOGY ORDERABLES Performing Organization Address City/State/[place] [address] (ABNORMAL) Hemogram (02/08/2020 10:01 AM EDT) Analysis Performed At Patho logist Time Signature WBC 4.7 4.0 - 9.5 [facility] x10(3)/[facility] LABORATORY RBC 3.91 (L) 4.00 - [facility] 5.21 [facility] x10(6)/[facility] LABORATORY Hemoglobin 10.7 (L) 11.7 - [facility] 15.5 gm/dL [facility] Hematocrit 33.5 (L) 35.7 - [facility] 45.8 % [facility] MCV 85.7 82.6 - [facility] 94.4 [facility] LABORATORY MCH 27.4 27.1 - [facility] DONNA 32.0 pg [facility] MCHC 31.9 31.7 - [facility] 35.0 gm/dL [facility] Platelets 443 (H) 145 - 357 [facility] x10(3)/[facility] LABORATORY RDWSD 60.9 (H) 37.0 - [facility] 46.0 [facility] RDWCV 19.6 (H) 11.5 - [facility] 14.1 % [facility] LAB[facility] MPV 8.9 7.6 - 12.9 [facility] LABORATORY nRBC % Auto 0.0 % [facility] nRBC Abs Auto 0.000 0.000 - [facility] 0.000 [facility] x10(3)/[facility] LABORATORY Specimen Anatomical Collection Method Collection Time Receive d Time (Source) Location / / Volume Laterality Blood specimen 02/08/2020 10:01 0 (specimen) AM EDT 10:06 AM EDT Resulting Agency Comment Spec In Lab Morris Dozier MD HEMATOLOGY ORDERABLES Performing Organization Address City/State/[place] [address] (ABNORMAL) Comprehensive metabolic panel (non-fasting) (02/08/2020 10:01 AM EDT) athologist Signature Glucose Lvl 119 65 - 199 [facility] mg/dL [facility] Comment: Diabetes: >=200 mg/dL plus symp toms BUN 10 8 - 18 mg/dL [facility] Creatinine 0.53 (L) 0.70 - 1.20 mg/dL [facility] LABOR[facility]ORY Sodium 143 135 - 145 mmol/L [facility] Potassium 4.1 3.5 - 5.0 mmol/L [facility] Comment: Please note: ??Patients with WBC >100,00 0 may have falsely elevated Potassium levels. ??For accurate Potassium quantif ication in these patients send serum separator tube (gold top) for subsequent determinations. ??Contact the Clinical Chemistry Laboratory if there are any qu estions. Chloride 106 98 - 107 mmol/L [facility] CO2 27 22 - 31 mmol/L [facility] Anion Gap 10 5 - 15 mmol/L [facility] Calcium 8.6 8.5 - 10.5 mg/dL [facility] Total Protein 6.5 6.1 - 8.0 gm/dL [facility] LABOR[facility]ORY Albumin 4.1 3.2 - 5.2 gm/dL [facility] AST 49 (H) 0 - 30 unit/L [facility] ALT 56 (H) 0 - 30 unit/L [facility] Alk Phos 68 35 - 105 unit/L [facility] Total Bilirubin <0.2 (L) 0.2 - 1.3 mg/dL [facility] Estimated GFR 105 >=60 mL/min/1.73 m?? [facility] Comment: The eGFR was calculated using the CKD-EP I equation. As with all creatinine based estimates of kidney function, eGFR values calculated with the CKD-EPI equation are not accurate in patients wi th acute kidney failure, extremes of body mass or the acutely ill. [email or web address] eGFR 122 >=60 mL/min/1.73 m?? [facility] Comment: The eGFR was calculated using the CKD-EP I equation. As with all creatinine based estimates of kidney function, eGFR values calculated with the CKD-EPI equation are not accurate in patients wi th acute kidney failure, extremes of body mass or the acutely ill. [email or web address]/[email or web address] Specimen Anatomical Collection Method Collection Time Receive d Time (Source) Location / / Volume Laterality Blood specimen 02/08/2020 10:01 0 (specimen) AM EDT 10:06 AM EDT Resulting Agency Comment Spec In Lab Morris Dozier MD CHEMISTRY ORDERABLES Performing Organization Address City/State/[place] [address] (ABNORMAL) Iron and TIBC (02/08/2020 10:01 AM EDT) Analysis Performed At Patho logist Time Signature Iron 22 (L) 30 - 150 [facility] mcg/dL [facility] TIBC 235 (L) 250 - 450 [facility] mcg/dL [facility] Iron Saturation 9 (L) 20 - 50 % [facility] Specimen Anatomical Collection Method Collection Time Receive d Time (Source) Location / / Volume Laterality Blood specimen 02/08/2020 10:01 0 (specimen) AM EDT 10:06 AM EDT Resulting Agency Comment Spec In Lab Morris Dozier MD CHEMISTRY ORDERABLES Performing Organization Address City/State/[place] [address] Ferritin (02/08/2020 10:01 AM EDT) athologist Signature Ferritin 74 30 - 400 [facility] ng/mL [facility] Comment: Pediatric reference ranges not verified at [facility], interpret with caution. Reference ranges for females greater loida n 50 years of age approach values for men, i.e., 30-400 ng/mL. Specimen Anatomical Collection Method Collection Time Receive d Time (Source) Location / / Volume Laterality Blood specimen 02/08/2020 10:01 0 (specimen) AM EDT 10:07 AM EDT Resulting Agency Comment Spec In Lab Morris Dozier MD CHEMISTRY ORDERABLES Performing Organization Address City/[facility]/[place] [address] documented in this encounter Visit Diagnoses Diagnosis GIST (gastrointestinal stromal tumor) of small bowel, malignant Other iron deficiency anemia documented in this encounter Care Teams Living Specialist Relationship Specialty Start Date End Date Irving Wheeler MD PCP - General 06/23/[address] [place] [phone] documented as of this encounter
--- OUTSIDE RECORDS SUMMARY | 2022-02-01 00:28 | XMS_ITS | Encounter Summary ---
:1960 Author Organization [facility] [place] [address] Care Team Providers Name Role Phone Irving Wheeler MD Primary Care Provider [phone] Encounter Details Date Type Department Care Team Description 01/26/2020 Hospital Encounter Hematology and Maligna nt Oncology at [facility] gastrointestinal stromal [facility] tumor, [place] [id number] Social History Tobacco Use Types Packs/Day Years [...] Oncology Morris Dozier MD [facility] ER DR ONCOLOGY [place], [place] [address] (Wo rk) documented as of this encounter Goals Goal Patient Goal Associated Recent Patient-Stated? Author Type Problems Progress DH Home Medication Patient No Rozols rajinder, Compliance and Facing Brandt Morin, Understanding Action Plan [facility] Note: Formatting of this note might be d ifferent from the original. Remain 95% adherent to Imatinib therapy without significant neutropenia as assessed by CBC labs in clinic every 1 to 3 months documented as of this encounter Procedures Procedure Name Priority Date/Time Associated Diagnosis Comme nts HEMOGRAM Routine 01/26/2020 1:33 Malignant Results for this PM EDT gastrointestinal procedure a re in stromal tumor, the results unspecified site section. DIFFERENTIAL, Routine 01/26/2020 1:33 Malignant Results for this AUTOMATED PM EDT gastrointestinal procedure a re in stromal tumor, the results unspecified site section. HC CBC,PLT & AUTO Routine 01/26/2020 1:33 Malignant DIFF PM EDT gastrointestinal stromal tumor, unspecified site MAGNESIUM Routine 01/26/2020 1:33 Results for this PM EDT procedure are i n the results section. HC VENIPUNCTURE Routine 01/26/2020 1:33 Malignant Results f or this PM EDT gastrointestinal procedure a re in stromal tumor, the results unspecified site section. documented in this encounter Results Magnesium (01/26/2020 1:33 PM EDT) athologist Signature Magnesium 0.81 0.69 - 1.07 [facility] mmol/L [facility] Specimen Anatomical Collection Method Collection Time Receive d Time (Source) Location / / Volume Laterality Blood specimen Venous Draw / 01/26/2020 1:33 PM 2019 2:15 (specimen) Unknown EDT PM EDT Resulting Agency Comment Spec In Lab Morris Dozier MD CHEMISTRY ORDERABLES Performing Organization Address City/State/ZIP Code Phon e Number [place] [phone] Differential, Automated (01/26/2020 1:33 PM EDT) athologist Signature Neutrophils % 59.8 % [facility] Neutr Abs (ANC) 2.29 1.70 - [facility] 6.10 [facility] x10(3)/[facility] LABORATORY Lymphocytes % 28.7 % [facility] Lymphocytes Abs 1.1 0.9 - 3.2 [facility] x10(3)/[facility] LABORATORY Monocytes % 8.9 % [facility] Monocyte Abs 0.3 0.3 - 0.9 [facility] x10(3)/[facility] LABORATORY Eosinophils % 1.6 % [facility] Eosinophils Abs 0.1 0.0 - 0.4 [facility] x10(3)/[facility] LABORATORY Basophils % 0.5 % [facility] Basophils Abs 0.0 0.0 - 0.1 [facility] x10(3)/[facility] LABORATORY Immature Gran % 0.50 % [facility] Comment: Immature granulocytes(IG's)percentage an d absolute count will include metamyelocytes, myelocytes, and promyelo cytes. Blood smears from CBCs yielding IG's will be scanned manually for concor dance. If this scan disagrees with the automated IG or if promyelocytes are not ed, a manual differential will be performed. Teresa Gran Abs 0.02 0.00 - 0.04 x10(3)/[facility] MAR Y [facility] LABOR[facility]ORY Specimen Anatomical Collection Method Collection Time Receive d Time (Source) Location / / Volume Laterality Blood specimen 01/26/2020 1:33 PM 020 2:11 (specimen) EDT PM EDT Resulting Agency Comment Spec In Lab Samer Damián FISHER HEMATOLOGY ORDERABLES Performing Organization Address City/[facility]/[place] [address] (ABNORMAL) Hemogram (01/26/2020 1:33 PM EDT) Analysis Performed At Patho logist Time Signature WBC 3.8 (L) 4.0 - 9.5 [facility] LABORATORY RBC 3.89 (L) 4.00 - [place] 5.21 [facility] x10(6)/[facility] LABORATORY Hemoglobin 10.8 (L) 11.7 - [facility] gm/dL [facility] Hematocrit 34.6 (L) 35.7 - [facility] 45.8 % [facility] MCV 88.9 82.6 - [facility] LAB[facility] MCH 27.8 27.1 - [place] 32.0 pg [facility] MCHC 31.2 (L) 31.7 - [facility] [place] 35.0 gm/dL [facility] Platelets 166 145 - 357 [facility] x10(3)/[facility] LABORATORY RDWSD 65.1 (H) 37.0 - [place] 46.0 [facility] LABORATORY RDWCV 20.2 (H) 11.5 - [place] 14.1 % [facility] MPV 11.4 7.6 - 12.9 [facility] nRBC % Auto 0.0 % [facility] nRBC Abs Auto 0.000 0.000 - [facility] [place] 0.000 [facility] x10(3)/[facility] LABORATORY Specimen Anatomical Collection Method Collection Time Receive d Time (Source) Location / / Volume Laterality Blood specimen 01/26/2020 1:33 PM 020 2:11 (specimen) EDT PM EDT Resulting Agency Comment Spec In Lab Samemandi Steel DO HEMATOLOGY ORDERABLES Performing Organization Address City/[facility]/[place] [address] (ABNORMAL) Comprehensive metabolic panel (non-fasting) (01/26/2020 1:33 PM EDT) P athologist Signature Glucose Lvl 90 65 - 199 [facility] mg/dL [facility] Comment: Diabetes: >=200 mg/dL plus symp toms BUN 14 8 - 18 mg/dL [facility] Creatinine 0.66 (L) 0.70 - 1.20 mg/dL [facility] Sodium 142 135 - 145 mmol/L [facility] Potassium 3.7 3.5 - 5.0 mmol/L [facility] Comment: Please note: ??Patients with WBC >100,00 0 may have falsely elevated Potassium levels. ??For accurate Potassium quantif ication in these patients send serum separator tube (gold top) for subsequent determinations. ??Contact the Clinical Chemistry Laboratory if there are any qu estions. Chloride 106 98 - 107 mmol/L [facility] CO2 27 22 - 31 mmol/L [facility] Anion Gap 9 5 - 15 mmol/L [facility] Calcium 9.4 8.5 - 10.5 mg/dL [facility] Total Protein 6.4 6.1 - 8.0 gm/dL [facility] Albumin 4.2 3.2 - 5.2 gm/dL [facility] AST 22 0 - 30 unit/L [facility] ALT 21 0 - 30 unit/L [facility] Alk Phos 54 35 - 105 unit/L [facility] Total Bilirubin <0.2 (L) 0.2 - 1.3 mg/dL [facility] Estimated GFR 98 >=60 mL/min/1.73 m?? [facility] Comment: The eGFR was calculated using the CKD-EP I equation. As with all creatinine based estimates of kidney function, eGFR values calculated with the CKD-EPI equation are not accurate in patients wi th acute kidney failure, extremes of body mass or the acutely ill. [email or web address]nkf eGFR 114 >=60 mL/min/1.73 m?? [facility] Comment: The eGFR was calculated using the CKD-EP I equation. As with all creatinine based estimates of kidney function, eGFR values calculated with the CKD-EPI equation are not accurate in patients wi th acute kidney failure, extremes of body mass or the acutely ill. [email or web address] Specimen Anatomical Collection Method Collection Time Receive d Time (Source) Location / / Volume Laterality Blood specimen 01/26/2020 1:33 PM 020 2:11 (specimen) EDT PM EDT Resulting Agency Comment Spec In Lab Morris Dozier MD CHEMISTRY ORDERABLES Performing Organization Address City/State/ZIP Code Phon e Number [place] [phone] documented in this encounter Visit Diagnoses Diagnosis Malignant gastrointestinal stromal tumor , unspecified site documented in this encounter Care Teams Plumbing And Heating Contractor Relationship Specialty Start Date End Date Irving Wheeler MD PCP - General 06/23/[address] [place] [id number] documented as of this encounter
--- OUTSIDE RECORDS SUMMARY | 2022-02-01 00:28 | XMS_ITS | Encounter Summary ---
:1960 Author Organization [facility] [place] [address] Care Team Providers Name Role Phone Irving Wheeler MD Primary Care Provider [phone] Reason for Referral Diagnostic Test (Routine) - Closed Specialty Diagnoses / Procedures Referred By Contact Refer red To Contact Radiology Diagnoses Malignant gastrointestinal stromal tumor, unspecified site Morirs Dozier MD [facility] Rad Nuclear Med Procedures NM PET CT Skull [place] [address] [place] [address] Fax: Referral ID Status Reason Start Date Expiration Date Visits V isits Requested Authorized [id number] Closed Specialty 12/20/2019 04/18/2020 1 1 Service Requested Reason for Visit Diagnostic Test (Routine) - Closed Specialty Diagnoses / Procedures Referred By Contact Refer red To Contact Radiology Diagnoses Malignant gastrointestinal stromal tumor, unspecified site Mroris Dozier MD [facility] Rad Nuclear Med Procedures NM PET CT Skull Base to Mid-thigh [facility] [place] [address] [place] [address] Fax: Referral ID Status Reason Start Date Expiration Date Visits V isits Requested Authorized [id number] Closed Specialty 12/20/2019 04/18/2020 1 1 Service Requested Encounter Details Date Type Department Care Team Description 12/29/2019 [facility] Nuclear Medicine Morris Dozier Encounter at Alanna Ortiz MD gastrointestinal stromal [facility] tumor, un specified site [facility] [address] [place], [place] ONCOLOGY [address] [place], [place] [phone] [facility] Social History Tobacco Use Types Packs/Day Years [...] and Oncology Morris Dozier MD [facility] ER ONCOLOGY [place] [phone] (Wo rk) documented as of this encounter Procedures Procedure Name Priority Date/Time Associated Diagnosis Comme nts NM PET CT SKULL Routine 12/29/2019 12:32 Malignant Results for this BASE TO MID-THIGH PM EDT gastrointestinal stroma l procedure are in ([facility]) tumor, unspecified site the results section. documented in this encounter Results NM PET CT Skull [...] e number below. ? Electronically signed by: Gurwinder Ortega [facility] ([phone]), at 12/29/2019 3:34 PM Narrative 12/29/2019 3:34 PM EDT EXAMINATION: NM PET CT SKULL BASE TO MID-THIGH ? CLINICAL HISTORY: Gastrointestinal cance r, staging GIST, locally advanced, staging TECHNIQUE: Following IV injection of 18- sheahg-7-dyvnbtepzzvd (FDG) a standard uptake of approximately 60 [...] staging TECHNIQUE: Following IV injection of 18- fbgiot-9-jefdzswqvpqg (FDG) a standard uptake of approximately 60 [...] contact e number below. Electronically signed by: Gurwinder Ortega [facility] ([phone]), at 12/29/2019 3:34 PM Morris Dozier MD IMG PET ORDERABLES documented in this encounter Visit Diagnoses Diagnosis Malignant gastrointestinal stromal tumor , unspecified site documented in this encounter Administered Medications Inactive Administered Medications - up to 3 most recent administrations Medication Order MAR Action Action Date Dose Rate Site fludeoxyglucose (F-18) FDG Given 12/29/2019 11:21 AM EDT 8.6 mCi injection 0-20 mCi 0-20 mCi, Intravenous, ONCE PRN, 1 dose, Starting on Fri12/29/19 at 1129, Until Fri12/29/19 at 1121, Per Protocol, Radiology Contrast, Routine documented in this encounter Care Teams Marine Cargo Surveyor Relationship Specialty Start Date End Date Irving Wheeler MD PCP - General 06/23/[address] [place] [id number] documented as of this encounter
--- OUTSIDE RECORDS SUMMARY | 2022-02-01 00:28 | XMS_ITS | Encounter Summary ---
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, malignant; [place] [facility] Other iron deficiency anemia [facility] [address] [place] [address] [place] [id number] [phone] Social History Tobacco Use Types Packs/Day Years [...] Sign Reading Time Taken Comments Blood Pressure 103/61 01/26/2020 2:19 PM EDT Pulse 71 01/26/2020 2:19 PM EDT Temperature 36.7 ??C (98.1 ??F) 01/26/2020 2:19 PM EDT Respiratory Rate 18 01/26/2020 2:19 PM EDT Oxygen Saturation 100% 01/26/2020 2:19 PM EDT Inhaled Oxygen Concentration - - Weight 52.8 kg (116 lb 6.4 oz) 01/26/2020 2:19 PM EDT Height 160.5 cm (5' 3.19) 01/26/2020 2:19 PM EDT Body Mass Index 20.5 01/26/2020 2:19 PM EDT documented in this encounter Progress Notes Morris Dozier MD - 01/26/2020 2:15 PM EDT Subjective: Patient ID: Mary Kay [...] of resection specimen. 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 Discussed at GI Tumor Board on 12/07/19. The recommendation was for molecular studies. Depending on findings, consider pre-operative imatinib. Recommend baseline PET scan and short term f/u PET scan toestablish activity. D. PET scan 12/29/19 - IMPRESSION 1. Unchanged size of a large heterogeneously FDG avid, centrally necrotic mass extending inferiorlyfrom the korin hepatus, consistent with biopsy-proven GI stromal tumor. 2. No alexis metastasis. 3. No distant metastasis. E. 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 She is accompanied to clinic today by her friend Caity Jordan. She has been taking the gleevec for about three and half weeks. She is tolerating this well. She has had some intermittent cramps in her lower legs, 2-3 episodes over the past three weeks. She has started taking magnesium. Her energy level is ok, still lower than baseline. She is noticing a little bit of swelling around her eyes. She is eating well and her weight is stable. She has no nausea or vomiting. Her bowels are ok. She is taking oral iron. No pain. Soc Hx:Divorces, lives in [place], [place] Tob - Quit in mid Etoh - none recently. 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 Fam Hx: Father - at [...] There is no distension. Palpations: There is mass (vague induration in upper abd to right of midline. Appears less prominent). Tenderness: There is no abdominal tenderness. There is no guarding. Musculoskeletal: General: No swelling. Lymphadenopathy: Cervical: No cervical adenopathy. Upper Body: Right upper body: No supraclavicular or axillary adenopathy. Left upper body: No supraclavicular or axillary adenopathy. Skin: General: Skin is warm and dry. Findings: No rash. Neurological: General: No focal deficit present. Mental Status: She is alert and oriented to person, place, and time. Coordination: Coordination normal. Psychiatric: Mood and Affect: Mood normal. Thought Content: Thought content normal. Recent Results (from the past 24 hour(s)) Hemogram Result Value Ref Range WBC 3.8 (L) 4.0 - 9.5 x10(3)/mcL RBC 3.89 (L) 4.00 - 5.21 x10(6)/mcL Hemoglobin 10.8 (L) 11.7 - 15.5 gm/dL Hematocrit 34.6 (L) 35.7 - 45.8 % MCV 88.9 82.6 - 94.4 fL MCH 27.8 27.1 - 32.0 pg MCHC 31.2 (L) 31.7 - 35.0 gm/dL Platelets 166 145 - 357 x10(3)/mcL RDWSD 65.1 (H) 37.0 - 46.0 fL RDWCV 20.2 (H) 11.5 - 14.1 % MPV 11.4 7.6 - 12.9 fL nRBC % Auto 0.0 % nRBC Abs Auto 0.000 0.000 - 0.000 x10(3)/mcL Differential, Automated Result Value Ref Range Neutrophils % 59.8 % Neutr Abs (ANC) 2.29 1.70 - 6.10 x10(3)/mcL Lymphocytes % 28.7 % Lymphocytes Abs 1.1 0.9 - 3.2 x10(3)/mcL Monocytes % 8.9 % Monocyte Abs 0.3 0.3 - 0.9 x10(3)/mcL Eosinophils % 1.6 % Eosinophils Abs 0.1 0.0 - 0.4 x10(3)/mcL Basophils % 0.5 % Basophils Abs 0.0 0.0 - 0.1 x10(3)/mcL Immature Gran % 0.50 % Teresa Gran Abs 0.02 0.00 - 0.04 x10(3)/mcL Assessment and Plan: [...] 400 mg per day on 12/31/19. She is tolerating this well. The mass may be less prominent on exam but it is difficult to tell. We will see her back in three weeks with a restaging CT scan. documented in this encounter Plan of Treatment Upcoming Encounters Date Type Specialty Care Team Description 02/15/2022 Office Visit Hematology and Oncology Morris Dozier MD [facility] DR ONCOLOGY [place] [phone] (Wo rk) documented as of this encounter Goals Goal Patient Goal Associated Recent Patient-Stated? Author Type Problems Progress DH Home Medication Patient No Rozoberenice ky, Compliance and Facing Brandt Morin Understanding Action Plan [facility] Note: Formatting of this note might be d ifferent from the original. Remain 95% adherent to Imatinib therapy without significant neutropenia as assessed by CBC labs in clinic every 1 to 3 months documented as of this encounter Results Ferritin (02/08/2020 10:01 AM EDT) athologist Signature Ferritin 74 30 - 400 [facility] ng/mL [facility] Comment: Pediatric reference ranges not verified at [facility], interpret with caution. Reference ranges for females [...] Organization Address City/State/[place] [address] (ABNORMAL) Iron and TIBC (02/08/2020 10:01 AM EDT) Analysis Performed At Patho logist Time Signature Iron 22 (L) 30 - 150 [facility] [place] mcg/dL [facility] TIBC 235 (L) 250 - 450 [facility] [place] mcg/dL [facility] Iron Saturation 9 (L) 20 - 50 % [facility] Specimen Anatomical Collection Method Collection Time Receive d Time (Source) Location / / Volume Laterality Blood specimen 02/08/2020 10:01 0 (specimen) AM EDT 10:06 AM EDT Resulting Agency Comment Spec In Lab Morris Dozier MD CHEMISTRY ORDERABLES Performing Organization Address City/State/ZIP Code Phon e Number [facility] [place] [address] (ABNORMAL) Comprehensive metabolic panel (non-fasting) (02/08/2020 10:01 AM EDT) P athologist Signature Glucose Lvl 119 65 - 199 [facility] mg/dL [facility] Comment: Diabetes: >=200 mg/dL plus symp toms BUN 10 8 - 18 mg/dL [facility] Creatinine 0.53 (L) 0.70 - 1.20 mg/dL [facility] Sodium 143 135 - 145 mmol/L [facility] Potassium 4.1 3.5 - 5.0 mmol/L [facility] Comment: Please note: ??Patients with WBC >100,00 0 may have falsely elevated Potassium levels. ??For accurate Potassium quantif ication in these patients send serum separator tube (gold top) for subsequent determinations. ??Contact the Clinical Chemistry Laboratory if there are any qu estions. Chloride 106 98 - 107 mmol/L [facility] CO2 27 22 - 31 mmol/L [facility] Anion Gap 10 5 - 15 mmol/L [facility] Calcium 8.6 8.5 - 10.5 mg/dL [facility] Total Protein 6.5 6.1 - 8.0 gm/dL [facility] Albumin 4.1 3.2 - 5.2 gm/dL [facility] AST 49 (H) 0 - 30 unit/L [facility] ALT 56 (H) 0 - 30 unit/L [facility] Alk Phos 68 35 - 105 unit/L [facility] Total Bilirubin <0.2 (L) 0.2 - 1.3 mg/dL [facility] Estimated GFR 105 >=60 mL/min/1.73 m?? [facility] Comment: The eGFR was calculated using the CKD-EP I equation. As with all creatinine based estimates of kidney function, eGFR values calculated with the CKD-EPI equation are not accurate in patients wi th acute kidney failure, extremes of body mass or the acutely ill. http://[employer]/[facility]ULSAnkf eGFR 122 >=60 mL/min/1.73 m?? [facility] Comment: The eGFR was calculated using the CKD-EP I equation. As with all creatinine based estimates of kidney function, eGFR values calculated with the CKD-EPI equation are not accurate in patients wi th acute kidney failure, extremes of body mass or the acutely ill. 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
--- OUTSIDE RECORDS SUMMARY | 2022-02-01 00:28 | XMS_ITS | Encounter Summary ---
:1960 Author Organization [facility] Address [facility] [place] [address] Care Team Providers Name Role Phone Irving Wheeler MD Primary Care Provider [phone] Reason for Visit Consultation (Urgent) - Closed Specialty Diagnoses / Procedures Referred By Contact Refer red To Contact Hematology and Diagnoses Malignant gastrointestinal stromal tumor (GIST) of small intestine Emely Galdamez, Morris Dozier, Oncology MD [facility] [address] [facility] [place] [address] [place] [address] Phone: Fax: Referral ID Status Reason Start Date Expiration Date Visits V isits Requested Authorized [id number] Closed Consult, 12/07/2019 12/06/2020 1 1 Test & Treat Encounter Details Date Type Department Care Team Description 12/14/2019 Office Visit Hematology and Morris Dozier, Maligna nt GIST (gastrointestinal stromal tumor) of small intestine; Oncology at [facility] Normocytic anemia [facility] [address] [place] [address] [place] [address] [phone] Social History Tobacco Use Types Packs/Day Years [...] Sign Reading Time Taken Comments Blood Pressure 111/56 12/14/2019 1:54 PM EDT Pulse 74 12/14/2019 1:54 PM EDT Temperature 36.5 ??C (97.7 ??F) 12/14/2019 1:54 PM EDT Respiratory Rate 18 12/14/2019 1:54 PM EDT Oxygen Saturation 98% 12/14/2019 1:54 PM EDT Inhaled Oxygen Concentration - - Weight 52.2 kg (115 lb) 12/14/2019 1:54 PM EDT Height 162.5 cm (5' 3.98) 12/14/2019 1:54 PM EDT Body Mass Index 19.75 12/14/2019 1:54 PM EDT documented in this encounter Progress Notes Morris Dozier MD - 12/14/2019 2:00 PM EDT Subjective: Patient ID: Mary [...] f/u PET scan toestablish activity. PET scan 12/21/19 HPI Ms. 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 She is accompanied to clinic today by her friend Ezekiel Leon. She says she is feeling well. Her weightis down about 3# in the past week. Despite this, she is eating well and eats a good balanced diet. She has no nausea or vomiting. Her bowels are ok. She has had some constipation and has a BM every day. She has not seen any blood per rectum or melanotic stools. Her energy level is ok, better than whenher Hgb was in the 7 range. She is an active person with work and gardening. No pain. Soc Hx:Divorces, lives in [place], [place] Tob - Quit in mid Etoh - none recently. 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 Fam Hx: Father - at [...] is no distension. Palpations: There is mass (in epigastric area, to right of midline. difficult to define discrete boreders, measures about 5 x 6 cm ). Tenderness: There is no abdominal tenderness. There [...] (non-fasting) Result Value Ref Range Glucose Lvl 95 65 - 199 mg/dL BUN 16 8 - 18 mg/dL Creatinine 0.59 (L) 0.70 - 1.20 mg/dL Sodium 142 135 - 145 mmol/L Potassium 3.7 3.5 - 5.0 mmol/L Chloride 105 98 - 107 mmol/L CO2 26 22 - 31 mmol/L Anion Gap 11 5 - 15 mmol/L Calcium 9.3 8.5 - 10.5 mg/dL Total Protein 6.5 6.1 - 8.0 gm/dL Albumin 4.5 3.2 - 5.2 gm/dL AST 14 0 - 30 unit/L ALT 14 0 - 30 unit/L Alk Phos 49 35 - 105 unit/L Total Bilirubin 0.2 0.2 - 1.3 mg/dL eGFR 102 >=60 mL/min/1.73 m?? eGFR 118 >=60 mL/min/1.73 m?? Hemogram Result Value Ref Range WBC 4.8 4.0 - 9.5 x10(3)/mcL RBC 3.90 (L) 4.00 - 5.21 x10(6)/mcL Hemoglobin 10.4 (L) 11.7 - 15.5 gm/dL Hematocrit 34.3 (L) 35.7 - 45.8 % MCV 87.9 82.6 - 94.4 fL MCH 26.7 (L) 27.1 - 32.0 pg MCHC 30.3 (L) 31.7 - 35.0 gm/dL Platelets 363 (H) 145 - 357 x10(3)/mcL RDWSD 45.6 37.0 - 46.0 fL RDWCV 14.2 (H) 11.5 - 14.1 % MPV 9.4 7.6 - 12.9 fL nRBC % Auto 0.0 % nRBC Abs Auto 0.000 0.000 - 0.000 x10(3)/mcL Differential, Automated Result Value Ref Range Neutrophils % 55.8 % Neutr Abs (ANC) 2.67 1.70 - 6.10 x10(3)/mcL Lymphocytes % 34.2 % Lymphocytes Abs 1.6 0.9 - 3.2 x10(3)/mcL Monocytes % 9.2 % Monocyte Abs 0.4 0.3 - 0.9 x10(3)/mcL Eosinophils % 0.2 % Eosinophils Abs 0.0 0.0 - 0.4 x10(3)/mcL Basophils % 0.4 % Basophils Abs 0.0 0.0 - 0.1 x10(3)/mcL Immature Gran % 0.20 % Teresa Gran Abs 0.01 0.00 - 0.04 x10(3)/mcL Assessment and Plan: [...] recommendation was for consideration of neoadjuvant imatinib. I think that is very reasonable assuming the molecular studies show findings that would suggest sensitivity to imatinib. A PET is scheduled for 12/21/19 and will serve as a baseline exam. I will f/u with her after the molecular test result is back. We expect that this week. We will start the authorization process for the imatinib but will not have it filled until we have the molecular result back. documented in this encounter Plan of Treatment Upcoming Encounters Date Type Specialty Care Team Description 02/15/2022 Office Visit Hematology and Oncology Morris Dozier MD [facility] [address] [place]OG[place], [place] [address] (Wo rk) documented as of this encounter Results (ABNORMAL) Comprehensive metabolic panel (non-fasting) (12/14/2019 3:18 PM EDT) athologist Signature Glucose Lvl 95 65 - 199 [facility] mg/dL [facility] Comment: Diabetes: >=200 mg/dL plus symp toms BUN 16 8 - 18 mg/dL [facility] Creatinine 0.59 (L) 0.70 - 1.20 mg/dL [facility] Sodium 142 135 - 145 mmol/L [facility] Potassium 3.7 3.5 - 5.0 mmol/L [facility] Comment: Please note: ??Patients with WBC >100,00 0 may have falsely elevated Potassium levels. ??For accurate Potassium quantif ication in these patients send serum separator tube (gold top) for subsequent determinations. ??Contact the Clinical Chemistry Laboratory if there are any qu estions. Chloride 105 98 - 107 mmol/L [facility] CO2 26 22 - 31 mmol/L [facility] Anion Gap 11 5 - 15 mmol/L [facility] Calcium 9.3 8.5 - 10.5 mg/dL [facility] Total Protein 6.5 6.1 - 8.0 gm/dL [facility] Albumin 4.5 3.2 - 5.2 gm/dL [facility] AST 14 0 - 30 unit/L [facility] ALT 14 0 - 30 unit/L [facility] Alk Phos 49 35 - 105 unit/L [facility] Total Bilirubin 0.2 0.2 - 1.3 mg/dL [facility] Estimated GFR 102 >=60 mL/min/1.73 m?? [facility] Comment: The eGFR was calculated using the CKD-EP I equation. As with all creatinine based estimates of kidney function, eGFR values calculated with the CKD-EPI equation are not accurate in patients wi th acute kidney failure, extremes of body mass or the acutely ill. [email or web address] eGFR 118 >=60 mL/min/1.73 m?? [facility] Comment: The eGFR was calculated using the CKD-EP I equation. As with all creatinine based estimates of kidney function, eGFR values calculated with the CKD-EPI equation are not accurate in patients wi th acute kidney failure, extremes of body mass or the acutely ill. [email or web address] Specimen Anatomical Collection Method Collection Time Receive d Time (Source) Location / / Volume Laterality Blood specimen 12/14/2019 3:18 PM 020 3:26 (specimen) EDT PM EDT Resulting Agency Comment Spec In Lab Morris Dozier MD CHEMISTRY ORDERABLES Performing Organization Address City/State/[place] [address] documented in this encounter Visit Diagnoses Diagnosis Malignant GIST (gastrointestinal stromal tumor) of small intestine Normocytic anemia Anemia, unspecified documented in this encounter Care Teams Metal Fabricator Welder Relationship Specialty Start Date End Date Irving Wheeler MD PCP - General 06/23/[address] [place] [id number] documented as of this encounter
--- OUTSIDE RECORDS SUMMARY | 2022-02-01 00:28 | XMS_ITS | Encounter Summary ---
:1960 Author Organization [facility] [place] [address] Care Team Providers Name Role Phone Irving Wheeler MD Primary Care Provider [phone] Encounter Details Date Type Department Care Team Description 12/14/2019 Hospital Encounter Hematology and Maligna nt GIST Oncology at [facility] [place] stromal t umor) [place] [address] Social History Tobacco Use Types Packs/Day [...] Visit Hematology and Oncology Morris Dozier MD [facility] MEDICAL [facility] ONCOLOGY [place], [place] [address] (Wo rk) documented as of this encounter Procedures Procedure Name Priority Date/Time Associated Comments Diagnosis HEMOGRAM Routine 12/14/2019 3:18 PM Malignant GIST Results for this EDT (gastrointestinal procedure are in stromal tumor) of the result s small intestine section. DIFFERENTIAL, Routine 12/14/2019 3:18 PM Malignant GIST Result s for this AUTOMATED EDT (gastrointestinal procedure are in stromal tumor) of the result s small intestine section. IRON AND TIBC Routine 12/14/2019 3:18 PM Results for this EDT procedure are i n the results section. HC CBC,PLT & AUTO Routine 12/14/2019 3:18 PM Malignant GIST DIFF EDT (gastrointestinal stromal tumor) of small intestine HC VENIPUNCTURE Routine 12/14/2019 3:18 PM Malignant GIST Resu lts for this EDT (gastrointestinal procedure are in stromal tumor) of the result s small intestine section. documented in this encounter Results (ABNORMAL) Iron and TIBC (12/14/2019 3:18 PM EDT) P athologist Signature Iron 20 (L) 30 - 150 [facility] TIBC 338 250 - 450 [facility] mcg/dL [facility] Iron Saturation 6 (L) 20 - 50 % [facility] Specimen Anatomical Collection Method Collection Time Receive d Time (Source) Location / / Volume Laterality Blood specimen Venous Draw / 12/14/2019 3:18 PM 2019 3:55 (specimen) Unknown EDT PM EDT Resulting Agency Comment Spec In Lab Morris Dozier MD CHEMISTRY ORDERABLES Performing Organization Address City/State/[place] [address] Differential, Automated (12/14/2019 3:18 PM EDT) athologist Signature Neutrophils % 55.8 % [facility] Neutr Abs (ANC) 2.67 1.70 - [facility] 6.10 [facility] x10(3)/[facility] LABORATORY Lymphocytes % 34.2 % [facility] Lymphocytes Abs 1.6 0.9 - 3.2 [facility] x10(3)/[facility] LABORATORY Monocytes % 9.2 % [facility] Monocyte Abs 0.4 0.3 - 0.9 [facility] x10(3)/[facility] LABORATORY Eosinophils % 0.2 % [facility] Eosinophils Abs 0.0 0.0 - 0.4 [facility] x10(3)/[facility] LABORATORY Basophils % 0.4 % [facility] Basophils Abs 0.0 0.0 - 0.1 [facility] x10(3)/[facility] LABORATORY Immature Gran % 0.20 % [facility] Comment: Immature granulocytes(IG's)percentage an d absolute count will include metamyelocytes, myelocytes, and promyelo cytes. Blood smears from CBCs yielding IG's will be scanned manually for concor dance. If this scan disagrees with the automated IG or if promyelocytes are not ed, a manual differential will be performed. Teresa Gran Abs 0.01 0.00 - 0.04 x10(3)/[facility] Y [facility] Specimen Anatomical Collection Method Collection Time Receive d Time (Source) Location / / Volume Laterality Blood specimen 12/14/2019 3:18 PM 020 3:26 (specimen) EDT PM EDT Resulting Agency Comment Spec In Lab Morris Dozier MD HEMATOLOGY ORDERABLES Performing Organization Address City/State/ZIP [place] [address] (ABNORMAL) Hemogram (12/14/2019 3:18 PM EDT) Analysis Performed At Patho logist Time Signature WBC 4.8 4.0 - 9.5 [facility] x[facility](3[facility] LAB[facility]ORY RBC 3.90 (L) 4.00 - [place] 5.21 [facility] x10(6)/[facility] LABORATORY Hemoglobin 10.4 (L) 11.7 - [facility] 15.5 gm/dL [facility] Hematocrit 34.3 (L) 35.7 - [facility] 45.8 % [facility] MCV 87.9 82.6 - [facility] 94.4 [facility] LABORATORY MCH 26.7 (L) 27.1 - [facility] 32.0 pg [facility] MCHC 30.3 (L) 31.7 - [facility] 35.0 gm/dL [facility] Platelets 363 (H) 145 - 357 [facility] x10(3)/[facility] LABORATORY RDWSD 45.6 37.0 - [facility] 46.0 [facility] LABORATORY RDWCV 14.2 (H) 11.5 - [facility] 14.1 % [facility] MPV 9.4 7.6 - 12.9 [facility] nRBC % Auto 0.0 % [facility] nRBC Abs Auto 0.000 0.000 - [facility] [place] 0.000 [facility] x10(3)/[facility] LABORATORY Specimen Anatomical Collection Method Collection Time Receive d Time (Source) Location / / Volume Laterality Blood specimen 12/14/2019 3:18 PM 020 3:26 (specimen) EDT PM EDT Resulting Agency Comment Spec In Lab Morris Dozier MD HEMATOLOGY ORDERABLES Performing Organization Address City/State/ZIP [place] [address] (ABNORMAL) Comprehensive metabolic panel (non-fasting) (12/14/2019 3:18 PM EDT) P athologist Signature Glucose Lvl 95 65 - 199 [facility] mg/dL [facility] Comment: Diabetes: >=200 mg/dL plus symp toms BUN 16 8 - 18 mg/dL [facility] Creatinine 0.59 (L) 0.70 - 1.20 mg/dL [facility] Sodium 142 135 - 145 mmol/L [facility] Potassium 3.7 3.5 - 5.0 mmol/L [facility] Comment: Please note: ??Patients with WBC >100,00 0 may have falsely elevated Potassium levels. ??For accurate Potassium quantif ication in these patients send serum separator tube (gold top) for subsequent determinations. ??Contact the Clinical Chemistry Laboratory if there are any qu estions. Chloride 105 98 - 107 mmol/L [facility] CO2 26 22 - 31 mmol/L [facility] Anion Gap 11 5 - 15 mmol/L [facility] Calcium 9.3 8.5 - 10.5 mg/dL [facility] Total Protein 6.5 6.1 - 8.0 gm/dL [facility] Albumin 4.5 3.2 - 5.2 gm/dL [facility] AST 14 0 - 30 unit/L [facility] ALT 14 0 - 30 unit/L [facility] Alk Phos 49 35 - 105 unit/L [facility] Total Bilirubin 0.2 0.2 - 1.3 mg/dL [facility] Estimated GFR 102 >=60 mL/min/1.73 m?? [facility] Comment: The eGFR was calculated using the CKD-EP I equation. As with all creatinine based estimates of kidney function, eGFR values calculated with the CKD-EPI equation are not accurate in patients wi th acute kidney failure, extremes of body mass or the acutely ill. [email or web address] eGFR 118 >=60 mL/min/1.73 m?? [facility] Comment: The eGFR was calculated using the CKD-EP I equation. As with all creatinine based estimates of kidney function, eGFR values calculated with the CKD-EPI equation are not accurate in patients wi th acute kidney failure, extremes of body mass or the acutely ill. [email or web address] Specimen Anatomical Collection Method Collection Time Receive d Time (Source) Location / / Volume Laterality Blood specimen 12/14/2019 3:18 PM 020 3:26 (specimen) EDT PM EDT Resulting Agency Comment Spec In Lab Morris Dozier MD CHEMISTRY ORDERABLES Performing Organization Address City/State/ZIP [place] [address] documented in this encounter Visit Diagnoses Diagnosis Malignant GIST (gastrointestinal stromal tumor) of small intestine documented in this encounter Care Teams Doctor Of Naprapathy Relationship Specialty Start Date End Date Irving Wheeler MD PCP - General 06/23/19 [address] [place] [id number] documented as of this encounter
--- OUTSIDE RECORDS SUMMARY | 2022-02-01 00:28 | XMS_ITS | Encounter Summary ---
:1960 Author Organization [facility] [place] [address] Care Team Providers Name Role Phone Irving Wheeler MD Primary Care Provider [phone] Encounter Details Date Type Department Care Team Description 02/08/2020 Office Visit Hematology and Morris Dozier Gastrointbernie stinal stromal Oncology at [facility] [place] Angel tumor (GIST) of duodenum Critical access hospital [facility] [address] [place], [place] [phone] [facility] Social History Tobacco Use Types Packs/Day [...] encounter Progress Notes Morris Dozier MD - 02/08/2020 11:30 AM EDT Subjective: Patient ID: Mary Kay [...] of resection specimen. 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 Discussed at GI [...] and management of small bowel GIST. She was hospitalized at [facility] from 01/31 to 02/04/20. She had presented [...] hospital and discharged on cipro and flagyl. She is accompanied to clinic today by her friend Fernando Watts. She is doing pretty well. She has had some stomach upset and wonders if that is related to the antibiotics. She is eating and has maintained her weight. Her bowels are ok. No pain. No fevers or chills. Soc Hx:Divorces, lives in [place], [place] Tob - Quit in mid Etoh - none recently. 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 Fam Hx: Father - at [...] scleral icterus. Cardiovascular: Rate and Rhythm: Normal rate. Pulmonary: Effort: No respiratory distress. Abdominal: General: There is no distension. Musculoskeletal: General: No swelling. Skin: General: Skin is warm and dry. Findings: No rash. Neurological: General: No focal deficit present. Mental Status: She is alert and oriented to person, place, and time. Coordination: Coordination normal. Psychiatric: Mood and Affect: Mood normal. Thought Content: Thought content normal. Recent Results (from the past 24 hour(s)) Iron and TIBC Result Value Ref Range Iron 22 (L) 30 - 150 mcg/dL TIBC 235 (L) 250 - 450 mcg/dL Iron Saturation 9 (L) 20 - 50 % Comprehensive metabolic panel (non-fasting) Result Value Ref Range Glucose Lvl 119 65 - 199 mg/dL BUN 10 8 - 18 mg/dL Creatinine 0.53 (L) 0.70 - 1.20 mg/dL Sodium 143 135 - 145 mmol/L Potassium 4.1 3.5 - 5.0 mmol/L Chloride 106 98 - 107 mmol/L CO2 27 22 - 31 mmol/L Anion Gap 10 5 - 15 mmol/L Calcium 8.6 8.5 - 10.5 mg/dL Total Protein 6.5 6.1 - 8.0 gm/dL Albumin 4.1 3.2 - 5.2 gm/dL AST 49 (H) 0 - 30 unit/L ALT 56 (H) 0 - 30 unit/L Alk Phos 68 35 - 105 unit/L eGFR 105 >=60 mL/min/1.73 m?? eGFR 122 >=60 mL/min/1.73 m?? Hemogram Result Value Ref Range WBC 4.7 4.0 - 9.5 x10(3)/mcL RBC 3.91 (L) 4.00 - 5.21 x10(6)/mcL Hemoglobin 10.7 (L) 11.7 - 15.5 gm/dL Hematocrit 33.5 (L) 35.7 - 45.8 % MCV 85.7 82.6 - 94.4 fL MCH 27.4 27.1 - 32.0 pg MCHC 31.9 31.7 - 35.0 gm/dL Platelets 443 (H) 145 - 357 x10(3)/mcL RDWSD 60.9 (H) 37.0 - 46.0 fL RDWCV 19.6 (H) 11.5 - 14.1 % MPV 8.9 7.6 - 12.9 fL nRBC % Auto 0.0 % nRBC Abs Auto 0.000 0.000 - 0.000 x10(3)/mcL Differential, Automated Result Value Ref Range Neutrophils % 63.4 % Neutr Abs (ANC) 2.95 1.70 - 6.10 x10(3)/mcL Lymphocytes % 26.0 % Lymphocytes Abs 1.2 0.9 - 3.2 x10(3)/mcL Monocytes % 9.0 % Monocyte Abs 0.4 0.3 - 0.9 x10(3)/mcL Eosinophils % 0.6 % Eosinophils Abs 0.0 0.0 - 0.4 x10(3)/mcL Basophils % 0.4 % Basophils Abs 0.0 0.0 - 0.1 x10(3)/mcL Immature Gran % 0.60 % Teresa Gran Abs 0.03 0.00 - 0.04 x10(3)/mcL Assessment and Plan: [...] day on 12/31/19. She was hospitalized at [facility] from 01/31 to 02/04/20. She had presented [...] discharged on cipro and flagyl. The WBC/ANC have improved and are now WNL. While this type of severe leukopenia/neutropenia is uncommon with imatinib, agranulocytosis has beenreported. The source of the infection was felt likely to be the necrotic mass. The question now is whether to resume the imatinib vs proceed with surgery. Restarting imatinib could be considered, with dose reduction. I would be concerned about recurrent infection in the absence of definitive therapy for this. She saw Dr. Galdamez today as well. The plan is for surgery on 02/23/20. I will plan to see herafter that and discuss whether there is a role for post-operative imatinib. Iron studies show iron deficiency. She is taking oral iron. documented in this encounter Plan of Treatment Upcoming Encounters Date Type Specialty Care Team Description 02/15/2022 Office Visit Hematology and Oncology Morris Dozier MD [facility] [place] [address] (Wo rk) documented as of this encounter [...] months documented as of this encounter Results (ABNORMAL) Comprehensive metabolic panel (non-fasting) (03/21/2020 12:28 PM EST) athologist Signature Glucose Lvl 104 65 - 199 [facility] mg/dL [facility] Comment: Diabetes: >=200 mg/dL plus symp toms BUN 17 8 - 18 mg/dL [facility] Creatinine 0.48 (L) 0.70 - 1.20 mg/dL [facility] Sodium 141 135 - 145 mmol/L [facility] Potassium 4.4 3.5 - 5.0 mmol/L [facility] [...] Anion Gap 8 5 - 15 mmol/L [facility] Calcium 9.7 8.5 - 10.5 mg/dL [facility] Total Protein 6.9 6.1 - 8.0 gm/dL [facility] Albumin 4.4 3.2 - 5.2 gm/dL [facility] AST 27 0 - 30 unit/L [facility] ALT 43 (H) 0 - 30 unit/L [facility] Alk Phos 72 35 - 105 unit/L [facility] Total Bilirubin 0.3 0.2 - 1.3 mg/dL [facility] Estimated GFR 109 >=60 mL/min/1.73 m?? [facility] Comment: The eGFR was calculated using the CKD-EP I equation. As with all creatinine based estimates of kidney function, eGFR values calculated with the CKD-EPI equation are not accurate in patients wi th acute kidney failure, extremes of body mass or the acutely ill. [email or web address] eGFR 126 >=60 mL/min/1.73 m?? [facility] Comment: The eGFR was calculated using the CKD-EP I equation. As with all creatinine based estimates of kidney function, eGFR values calculated with the CKD-EPI equation are not accurate in patients wi th acute kidney failure, extremes of body mass or the acutely ill. [email or web address] Specimen Anatomical Collection Method Collection Time Receive d Time (Source) Location / / Volume Laterality Blood specimen 03/21/2020 12:28 0 (specimen) PM EST 12:29 PM EST Resulting Agency Comment Spec In Lab Morris Dozier MD CHEMISTRY ORDERABLES Performing Organization Address City/State/[place] [address] documented in this encounter Visit Diagnoses Diagnosis Gastrointestinal stromal tumor (GIST) of duodenum documented in this encounter Care Teams Wildlife Science Professor Relationship Specialty Start Date End Date Irving Wheeler MD PCP - General 06/23/[address] [place] [address] documented as of this encounter
--- OUTSIDE RECORDS SUMMARY | 2022-02-01 00:28 | XMS_ITS | Encounter Summary ---
:1960 Author Organization [facility] [place] [address] Care Team Providers Name Role Phone Irving Wheeler MD Primary Care Provider [phone] Reason for Visit Reason Comments Specialty Pharmacy Review Imatinib Encounter Details Date Type Department Care Team Description 01/26/2020 Specialty Pharmacy Pharmacy at [facility] Review (I lissette) [place] [id number] Social History Tobacco Use Types Packs/Day Years [...] documented as of this encounter Progress Notes Pilar Verma - 01/26/2020 2:17 PM EDT The [facility] has completed a benefits investigation for Mary Kay Gonzalez to review theireligibility to fill at [facility]. Per patient's medication list they are prescribed IMATINIB and is able to be filled at the [facility]. Imatinib was discontinued temporarily due to side effects but may be restarted post-operatively. documented in this encounter Plan of Treatment Upcoming Encounters Date Type Specialty Care Team Description 02/15/2022 Office Visit Hematology and Oncology Morris Dozier MD [facility] [address] ONCOLOGY [place], [place] [address] (Wo rk) documented as of [...] Diagnoses Not on filedocumented in this encounter Additional Health Concerns Infection Onset Date Last Indicated Resolved Time Rule Out Respiratory 02/03/2020 02/03/2020 02/03/2020 6:45 PM EDT Rule Out C. difficile 02/04/2020 02/04/2020 02/04/2020 2:16 PM EDT Rule Out C. difficile 02/04/2020 02/04/2020 02/04/2020 4:04 PM EDT documented as of this encounter Care Teams Dental Amalgam Processor Relationship Specialty Start Date End Date Irving Wheeler MD PCP - General 06/23/19 [address] [place] [address] documented as of this encounter
--- OUTSIDE RECORDS SUMMARY | 2022-02-01 00:28 | XMS_ITS | Encounter Summary ---
:1960 Author Organization [facility] [place] [address] Care Team Providers Name Role Phone Irving Wheeler MD Primary Care Provider [phone] Encounter Details Date Type Department Care Team Description 12/29/2019 Specialty Pharmacy Pharmacy at [facility] Brandt Grewal, [facility] [place] [address] Social History Tobacco Use Types Packs/Day [...] Oncology Morris Dozier MD [facility] ON[facility] [place], [place] [address] (Wo rk) documented as of this encounter Visit Diagnoses Not on filedocumented in this encounter Care Teams Model Maker Scale Relationship Specialty Start Date End Date Irving Wheeler MD PCP - General 06/23/19 [address] [place] [address] documented as of this encounter
--- OUTSIDE RECORDS SUMMARY | 2022-02-01 00:28 | XMS_ITS | Encounter Summary ---
:1960 Author Organization [facility] [place] [address] Care Team Providers Name Role Phone Irving Wheeler MD Primary Care Provider [phone] Reason for Visit Reason Comments Prior Authorization imatinib Encounter Details Date Type Department Care Team Description 12/15/2019 Specialty Pharmacy Pharmacy at [facility] Leela Prior Authorization [facility] Blessing Gold (imatinib ) [place] [id number] Social History Tobacco Use Types Packs/Day Years [...] this encounter Progress Notes Blessing Swenson - 12/15/2019 10:17 AM EDT [facility], Medication Prior Authorization Patient: Mary Kay Gonzalez Patient : 1960 Patient Address: [address] [place] [id number] (home) Medication Name: IMATINIB 400 MG TABLET Medication ID: [id number] Patient Location: [facility] HEM ONC 3K Patient Location Comment: Subscriber Insurance: Subscriber Insurance Comment: [employer] Fax: Physician: MORRIS YANG Physician Comment: Sent Via: [facility] Sood: [id number] Ref/Case/PA#: Medication Strength Frequency Requested: imatinib 400 mg tabs Take one tablet once daily Qty/Day Supply: New Start: New to Therapy Diagnosis & ICD-10 Code: Gastrointestinal Stromal Tumor (C49.A) Patient Notified: No Submission Notes: None Blessing Swenson - 12/15/2019 10:17 AM EDT [facility], Prior Authorization Approval Medication Name: IMATINIB 400 MG TABLET Medication ID: [id number] Fillable at [facility]: Yes Approval Dates: 12/15/2019 to 06/16/2020 Insurance requirements/notes: None Other Notes: Can fill at [facility]. Case/Reference #: [id number] Approval notification Received via: Fax Copay: $0.00 Copay assistance: None Copay Notes: Insurance mandated Pharmacy: [facility] Pharmacy staff will be reaching out to the patient to inform them of their medication's approval by their insurance. If applicable, a pharmacist will speak with the patient to offer our specialty pharmacy services and to arrange delivery of their medication. documented in this encounter Plan of Treatment Upcoming Encounters Date Type Specialty Care Team Description 02/15/2022 Office Visit Hematology and Oncology Morris Yang MD [facility]COLOG[facility] [place] [address] (Wo rk) documented as of this encounter Visit Diagnoses Not on filedocumented in this encounter Care Teams Manager Fixed Income Relationship Specialty Start Date End Date Irving Wheeler MD PCP - General 06/23/[address] [place] [address] documented as of this encounter
--- OUTSIDE RECORDS SUMMARY | 2022-02-01 00:29 | XMS_ITS | Encounter Summary ---
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 Emely Galdamez Ripple, Gregory H, Oncology MD [facility] [address] [facility] [place] [address] Phone: Fax: Referral ID Status Reason Start Date Expiration Date Visits V isits Requested Authorized [id number] Closed Consult, 12/07/2019 12/06/2020 1 1 Test & Treat Reason for Visit Consultation (Routine) - Closed Specialty Diagnoses / Procedures Referred By Contact Refer red To Contact General Surgery Diagnoses GIST (gastrointestinal stromal tumor) of small bowel, malignant Pedrito Arrieta MD Smith, Kerrington D, MD [facility] [place] [address] Fax: [phone] [facility] Referral ID Status Reason Start Date Expiration Date Visits V isits Requested Authorized [id number] Closed Consult, 12/02/2019 12/01/2020 1 1 Test & Treat Encounter Details Date Type Department Care Team Description 12/07/2019 Office Visit General Surgery at Emely Galdamez [facility] MD Gurwinder gastrointestinal stromal [facility] juan ramon or (GIST) of small Drive DR vaughn [place], [place] GENERAL SURGERY [address] [place] [address] [phone] Social History Tobacco Use Types Packs/Day Years [...] Sign Reading Time Taken Comments Blood Pressure 124/62 12/07/2019 8:45 AM EDT Pulse 69 12/07/2019 8:45 AM EDT Temperature 36.3 ??C (97.4 ??F) 12/07/2019 8:45 AM EDT Respiratory Rate - - Oxygen Saturation 100% 12/07/2019 8:45 AM EDT Inhaled Oxygen Concentration - - Weight 53.5 kg (118 lb) 12/07/2019 8:45 AM EDT Height - - Body Mass Index 20.25 11/25/2019 10:10 AM EDT documented in this encounter Progress Notes Emely Galdamez MD - 12/07/2019 9:00 AM EDT Surgical Oncology Consultation Note Date: 12/04/2019 Primary physician: Irving Wheeler MD Referring physician: Pedrito Arrieta MD Reason for evaluation: 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 History of the present illness: Mrs. Gonzalez is a 59 year old woman from [place], [place]. She presented with several months history of nausea and then vomiting to the [facility] ED with a work-up described below. 11/22/2019 CT abdomen and pelvis ([facility]). 11/25/[address] Arrieta with [...] passes were made with the 22 gauge [employer] biopsy needle using a transduodenal approach. A [...] clearly obstructed yet, and LFTs are normal. Recommendation: ??Discharge patient to home. Advance diet as tolerated. Await cytology results. Present at GI Tumor Board for treatment recommendations. 11/25/2019 EUS [facility] cytopathology per Acc# [id number] showed Neoplastic Cells Present. Consistentwith g astrointestinal [...] will be issued in molecular pathology reports. Today: 12/07/2019 Surgical Oncology Consult. Mrs. Gonzalez was seen in the surgery clinic. She was accompanied by her friend-Lesli. She gives a history that began last January when she just felt weary and weak and started noticing some intermittent dark stools. In March she felt sick and had dizziness and quite a lot of nausea but had not yet vomited. The symptoms would come and go and then eventually she presented to the [facility] ED with a hemoglobin of 8.5. She did not receive a blood transfusion and was referred to her primary care physician for follow-up where Dr. Wheeler referred her to Matthias Harris for upper endoscopy. The upper endoscopy apparently showed a duodenal ulcer and she wasstarted on omeprazole and the bleeding stopped. In early August she had a repeat EGD and the omeprazole dose was increased. In late September she began having worsening dark stools when they tried to decreaseher omeprazole dose. She has never had jaundice symptoms. She has never had any pancreatitis. She does endorse some nausea with decreased appetite. About 2 years ago she weighed 125 pounds and the lowest weight was 114 pounds recently but she has been able to put on about 5 to 6 pounds. Past Medical History: GIST as above. Past Surgical History: None. Review of systems: A comprehensive ROS questionnaire (scanned into [facility]) was completed by the patient- pertinent surgical related findings are summarized below. All other systems on the questionnaire were reviewed and were negative. She has never had any blood clots, chest pain, shortness of breath or prior history of heart attack or stroke symptoms. She does not have diabetes. Social History: She she is from [place] and emigrated here in 2001. 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 She has children 3 teenagers. Family History: Her mother is still alive and her father after some complication from a colonoscopy. She has a brother who of pancreatic cancer at the age of 47. Medications: ??? omeprazole (PriLOSEC) 20 mg Capsule, Delayed Release(E.C.) ??? iron,carb/vit C/vit B12/folic (IRON 100 PLUS ORAL) ??? sucralfate (Carafate) 1 gram Tablet ??? cholecalciferol, Vitamin D3, 50 mcg (2,000 unit) Capsule Allergies: No Known Allergies Physical Examination: Vital signs: Blood pressure 124/62, pulse 69, temperature 36.3 ??C (97.4 ??F), weight 53.5 kg (118 lb), SpO2 100 %. General: Ms. Gonzalez looks very healthy- younger than her age. She can ambulate onto the exam table without difficulty. Skin: No jaundice, lesions or masses noted. HEENT: Sclera is anicteric. No supraclavicular or cervical adenopathy. I auscultated the neck and heard no carotid bruits bilaterally. Chest: Clear to auscultation bilaterally on posterior chest rossi. Heart: RRR with no murmurs appreciated. Abdomen: Soft, non tender and non distended. I could palpate a mass in the epigastric region distinct from the liver edge. Lymph: No inguinal masses or adenopathy. Extremity exam: No peripheral edema bilaterally. DP palpable bilaterally. Assessment and plans: 60 minutes of this 65 minute surgery consultation appointment was spent in direct [id number] discussion with regard to the diagnosis of duodenal gastrointestinal stromal tumor (GIST). We discussed her symptomatology and it is quite remarkable that she is not having more obstruct shakira symptoms given this large size duodenal gist arising in the first portion of the duodenum. She is also not having any jaundice symptoms. Given the large size of the mass and we reviewed the CT images together today in clinic I think she would benefit from the neoadjuvant therapy approach with preoperative imatinib for least 4 months depending upon response in an effort to decrease the size of themass and to make it less friable and less prone to rupture during surgical resection. We went over and much of the discussion today was spent reviewing the rationale for surgical resection which would require the Whipple operation given the large tumor and its location in the duodenum. I ordered a CT/PET scans so that further staging can be performed prior to initiating imatinib and I referred her toDr. Dozier for medical oncology consultation. We will look forward to discussing her case at the upcoming GI tumor board and hopefully the CT/PET imaging can be scheduled at a time either prior to Dr. Dozier's consultation appointment or shortly thereafter. By then the molecular studies on the gist tumor will be available to review and appropriate mutation based dosing of the imatinib can hopefully be accomplished. I will look forward to seeing her back after the preoperative therapy to discuss the Whipple surgery in greater detail and review the posttreatment imaging and response. Reid Galdamez MD 12/13/2019 4:52 PM This note was created using [employer] voice recognition software. documented in this encounter Plan of Treatment Upcoming Encounters Date Type Specialty Care Team Description 02/15/2022 Office Visit Hematology and Oncology Morris Dozier MD 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
--- OUTSIDE RECORDS SUMMARY | 2022-02-01 00:29 | XMS_ITS | Encounter Summary ---
:1960 Author Organization [facility] [place] [address] Care Team Providers Name Role Phone Irving Wheeler MD Primary Care Provider [phone] Encounter Details Date Type Department Care Team Description 11/22/2019 Telephone [place]ology [place] [facility] [place] [address] Social History Tobacco Use Types Packs/Day Years Used Date Never Assessed Sex Assigned at Date Recorded Not on file documented as of this encounter Miscellaneous Notes Telephone Encounter - Clem Ventura - 11/22/2019 3:[address] Wheeler called about this patient looking to speak w/Dr. Arrieta. Can be rached at [phone]. documented in this encounter Plan of Treatment Upcoming Encounters Date Type Specialty Care Team Description 02/15/2022 Office Visit Hematology and Oncology Morris Dozier MD [facility] ONCOLOGY [place], [place] [address] (Wo rk) documented as of this encounter Visit Diagnoses Not on filedocumented in this encounter Care Teams Poultry Picker Relationship Specialty Start Date End Date Irving Wheeler MD PCP - General 06/23/19 [address] [place] [address] documented as of this encounter
--- OUTSIDE RECORDS SUMMARY | 2022-02-01 00:29 | XMS_ITS | Encounter Summary ---
:1960 [place] [address] Care Team Providers Name Role Phone Irving Wheeler MD Primary Care Provider [phone] Encounter Details Date Type Department Care Team Description 11/22/2019 Ancillary Procedure Radiology Library at [facility] [place] [address] GASTROENTEROLOGY [phone] DEPT. [place], [place] [address] (Wo rk) Social History Tobacco Use Types Packs/Day Years Used Date Never Assessed Sex Assigned at Date Recorded Not on file documented as of this encounter Plan of Treatment Upcoming Encounters Date Type Specialty Care Team Description 02/15/2022 Office Visit Hematology and Oncology Morris Dozier MD [facility] ONCOLOGY [place], [place] [address] (Wo rk) documented as of this encounter Procedures Procedure Name Priority Date/Time Associated Diagnosis Comme nts FILM LIBRARY Routine 11/22/2019 6:10 PM Results f or this STORAGE ONLY CT EDT procedure ar e in ABDOMEN AND PELVIS the resul ts section. documented in this encounter Results Film Library- Storage Only CT Abdomen & Pelvis (11/22/2019 6:10 PM EDT) Specimen (Source) Anatomical Location Collection Method / Collectio n Time Received Time / Laterality Volume Narrative [facility] - 11/22/2019 6:10 PM EDT This exam is auto-finalizing. It's purpo se is for storage only. Pedrito Arrieta MD IMG FILM LIBRARY ORDERABLES Performing Organization Address City/State/ZIP Code Phon e Number [place], [place] documented in this encounter Visit Diagnoses Not on filedocumented in this encounter Care Teams Coater Carbon Paper Relationship Specialty Start Date End Date Irving Wheeler MD PCP - General 06/23/[address] [place] [address] documented as of this encounter
--- OUTSIDE RECORDS SUMMARY | 2022-02-01 00:29 | XMS_ITS | Encounter Summary ---
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 [address] [place] [address] Fax: Referral ID Status Reason Start Date Expiration Date Visits V isits Requested Authorized [id number] Closed Consult, 12/02/2019 12/01/2020 1 1 Test & Treat Encounter Details Date Type Department Care Team Description 12/02/2019 Orders Only Gastroenterology at [facility] Pedrito Arrieta [facility] Gurwinder Bridges MD ([place] [address] [facility] MEDICAL stromal tumor) of [phone] paola cueva, GASTROENTEROLOGY malignant ( Primary DEPT. 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
--- OUTSIDE RECORDS SUMMARY | 2022-02-01 00:29 | XMS_ITS | Encounter Summary ---
:1960 Author Organization [facility] [place] [address] Care Team Providers Name Role Phone Irving Wheeler MD Primary Care Provider [phone] Encounter Details Date Type Department Care Team Description 08/05/2019 External Results Medical Records Provider, [place] [address] Social History Tobacco Use Types Packs/Day Years Used Date Never Assessed Sex Assigned at Date Recorded Not on file documented as of this encounter Plan of Treatment Upcoming Encounters Date Type Specialty Care Team Description 02/15/2022 Office Visit Hematology and Oncology Morris Dozier MD [facility] ONCOLOGY [place], [place] [address] (Wo rk) documented as of this encounter Procedures Procedure Name Priority Date/Time Associated Diagnosis Comme nts SURGICAL PATHOLOGY Routine 08/05/2019 Results f or this SCAN procedure are i n the results section . documented in this encounter Results Scan Doc: Surgical Pathology (08/05/2019) Narrative This result has an attachment that is no t available. Historical Provider MEDIA MGR SCAN EXT ORDR/RSLT documented in this encounter Visit Diagnoses Not on filedocumented in this encounter Care Teams Metal Pourer Relationship Specialty Start Date End Date Irving Wheeler MD PCP - General 06/23/[address] [place] [address] documented as of this encounter
--- OUTSIDE RECORDS SUMMARY | 2022-02-01 00:29 | XMS_ITS | Encounter Summary ---
:1960 Author Organization [place] [address] Care Team Providers Name Role Phone Irving Wheeler MD Primary Care Provider [phone] Encounter Details Date Type Department Care Team Description 06/23/2019 Hospital [place] [address] Social History Tobacco Use Types Packs/Day Years Used Date Never Assessed Sex Assigned at Date Recorded Not on file documented as of this encounter Plan of Treatment Upcoming Encounters Date Type Specialty Care Team Description 02/15/2022 Office Visit Hematology and Oncology Morris Dozier MD [facility] ER ONCOLOGY [place], [place] [address] (Wo rk) documented as of this encounter Procedures Procedure Name Priority Date/Time Associated Diagnosis Comme nts SURGICAL PATHOLOGY Routine 06/23/2019 11:10 AM Lisa angela for this REPORT EST procedure are i n the results section. documented in this encounter Results Surgical Pathology Report (06/23/2019 11:10 AM EST) Component Value Ref Test Analysis Performed At [facility] Method Time Signature Surgical [id number] ? Location: [facility] Pathology [place] Report The signing pathologist has (i) examined the relevant preparation(s) for the MEMORIAL specimen(s) and (ii) rendered or confirmed the diagnosis(es) . HOSPITAL LABORATORY . ?Surgic al Pathology DIAGNOSIS Antrum, biopsy: Gastric antral mucosa with r eactive gastropathy, no H. pylori-like organism seen on H&E stain Electronically signed by: ??Tyron Varela MD, I Verified: ??06/25/2019 ?Pathologist Performed at: ??-[facility] Dept. of Pathology, [place], [place] CLINICAL INFORMATION Specimen Submitted: A - Antrum bx Clinical History and Diagnosis: GI bleed; duodenal ulcer Referring Identifier: ?(not provided) Report to: Irving Wheeler SPECIMEN PROCESSING A - Labeled/Fixative: Antrum BX, formalin. Quantity/Size: Two, ranging 0.1-0.3 cm. Tissue Description: Soft, england-white tissues. Sections/Processing: Submitted en toto ??in 1 cassette labeled A1. ??MLL Specimen (Source) Anatomical Collection Method Collection Time Re ceived Time Location / / Volume Laterality 06/23/2019 11:10 AM EST Robert Harris DO PATHOLOGY/CYTOLOGY ORDERABLE S Performing Organization Address City/State/[place] [address] [facility] [address] documented in this encounter Visit Diagnoses Not on filedocumented in this encounter Care Teams Culinary Arts Instructor Relationship Specialty Start Date End Date Irving Wheeler MD PCP - General 06/23/19 [address] [place] [address] documented as of this encounter
--- OUTSIDE RECORDS SUMMARY | 2022-02-01 00:29 | XMS_ITS | Encounter Summary ---
:1960 Author Organization [facility] [place] [address] Care Team Providers Name Role Phone Irving Wheeler MD Primary Care Provider [phone] Reason for Visit Auth/Cert Specialty Diagnoses / Procedures Referred By Contact Refer red To Contact Diagnoses Liver mass Pancreatic mass Liver Mass, left lobe, pancreatic mass Procedures PRO ENDOSCOPIC US EXAM, ESOPH UPPER EUS- ENDOSCOPIC ULTRASOUND Referral ID Status Reason Start Date Expiration Date Visits Requ ested Visits Authorized [id number] 1 1 Encounter Details Date Type Department Care Team Description 11/25/2019 Anesthesia Event Gastroenterology at [facility] [place] [address] ANESTHESIOLOGY [place], [place] [address] Anesthesia Record Procedure Summary Procedure Name Responsible Anesthesia Start Anesthesia Stop Anesthesiologist Time Time UPPER EUS- Judd Kay MD 11/25/19 1107 11/25/19 1222 ENDOSCOPIC ULTRASOUND (N/A Trunk) Events Date Time Event Comment 11/25/2019 1029 1107 AN Verify 1107 Start 1107 An Start Data 1112 An Induction 1112 Anesthesia Ready 1139 Break/Relief In I assumed care f or Break Relief before which we: 1. Identifie d the patient 2. Identified the responsible provider(s) 3. Reviewed the pertinent medica l history 4. Discussed the surgical plan an d course 5. Reviewed intra-op anesthesia manag ement and issues during anesthesia 6. Se t expectations for the relief (and/or post-pro cedure) period 7. Allowed opportunity for questions and acknowledgement of understanding Jacqui Jackson, DIRECTOR MEDICAL SAFETY 1215 Break/Relief Out 1222 an stop data 1222 Recovery or ICU Handoff Patient care was transferred to the destination unit staff after review of the patient's medica l history, current anesthetic/surgi rabia status and plan, according to the Provider Handoff Checklist. 1222 Stop Name Total IV Lidocaine 50 mg Propofol 150 mg Propofol INF 845.92 mg lactated ringers infusion 900 mL Agents Name O2 Blood No blood administrations on file. Lines, Drains, and Airways Type Details Placement Removal PIV 11/25/19; 1026; median 11/25/19 1026 by Magy , 02/01/20 1725 by cubital vein (antecubital CLARKE Echeverria, Thuy Navas RN fossa), left; otll-njp-tongjf catheter system; 22 gauge; scar hunter rn; distraction, tolerated well, appears comfortable; 2 (attempted x2 by una kim rn); median vein (underside of arm), right, median cubital vein (antecubital fossa), right; 02/01/20; 1725 documented in this encounter Social History Tobacco [...] as of this encounter OR Notes Anesthesia Postprocedure Evaluation - Judd Kay MD - 11/25/2019 5:59 PM EDT Department of Anesthesiology Post-procedure Note Patient: Mary Kay Gonzalez Procedure Summary Date: 11/25/19 Room / Location: [facility] ENDO 2 / [facility] ENDOSCOPY Anesthesia Start: 1107 Anesthesia Stop: 1222 Procedure: UPPER EUS- ENDOSCOPIC ULTRASOUND (N/A Trunk) Diagnosis: (Liver Mass, left lobe, pancreatic mass) Surgeon: Pedrito Arrieta MD Responsible Provider: Judd Kay MD Anesthesia Type: MAC ASA Status: 2 All Anesthesia Providers: Anesthesiologist: Judd Kay MD DIRECTOR MEDICAL SAFETY: Brendon Diez CRNA Vitals Value Taken Time BP 111/60 11/25/2019 1:00 PM Temp Pulse Resp 16 11/25/2019 12:50 PM SpO2 100 % 11/25/2019 1:05 PM Pain Level 0 11/25/2019 12:50 PM Vitals shown include unvalidated device data. Patient Location: PACU/[facility] Level of Consciousness: Awake and Alert Pain Management: Satisfactory Analgesia PONV: None Cardiovascular Status: At Baseline Respiratory Status: At Baseline Postoperative Fluid Status: Intravascular EUvolemia Possible Anesthetic Complications: NONE apparent at time of evaluation Final Primary Anesthesia Type: MAC (The anesthetic type performed was the same as planned.) Comments: Anesthesia Preprocedure Evaluation - Judd Kay MD - 11/25/2019 6:29 AM EDT Pre-Anesthesia Evaluation for: Mary Kay Gonzalez a 59 y.o. female. Procedure(s): UPPER EUS- ENDOSCOPIC ULTRASOUND There are no active problems to display for this patient. No past medical history on file. No past surgical history on file. Social History Tobacco Use ??? Smoking status: Not on file Substance Use Topics ??? Alcohol use: Not on file Social History Substance and Sexual Activity Drug Use Not on file Allergies not on file Medications: MAR and/or home medications have been reviewed. Physical Exam: There were no vitals filed for this visit. There is no height or weight on file to calculate BMI. Airway Assessment: Mallampati: II TM distance: >3 FB Neck ROM: full Cardiovascular Assessment: cardiovascular exam normal Pulmonary Assessment: pulmonary exam normal Dental Assessment: Misc Assessment: IV access: Peripheral line Anesthesia Plan: ASA 2 MAC, with a(n) intravenous induction Ms Gonzalez is a 59 year-old woman who presents with pancreatic and live masses and is here for EUS. NPO: ok Allergies: nkda Anesthetic history: no issues with sedation in the past Plan MAC Region - Other Informed Consent: Anesthetic plan and risks discussed with patient. Plan discussed with DIRECTOR MEDICAL SAFETY. PAT Clinic Note documented in this encounter Plan of Treatment Upcoming Encounters Date Type Specialty Care Team Description 02/15/2022 Office Visit Hematology and Oncology Morris Dozier MD [facility] DR ONCOLOGY [place], [place] [address] (Wo rk) documented as of this encounter Visit Diagnoses Not on filedocumented in this encounter Administered Medications Inactive Administered Medications - up to 3 most recent administrations Medication Order MAR Action Action Date Dose Rate Site lidocaine (PF) (XYLOCAINE) 100 Given 11/25/2019 11:12 AM EDT 50 mg mg/5 mL (2 %) injection PRN, Starting on Blossom 11/25/19 at 1112, Until Blossom 11/25/19 at 1222, Anesthesia Intra-op, Routine propofol (DIPRIVAN) 10 mg/mL bolus injection Given 11:29 AM EDT 50 mg (Anesthesia) PRN, Starting on Blossom 11/25/19 at 1112, Until Blossom 11/25/19 at 1222, Anesthesia Intra-op Given 11/25/2019 11:12 AM EDT 100 mg propofol (DIPRIVAN) Rate/Dose 11/25/2019 11:29 250 mcg/kg/min 81.6 m L/hr infusion Change AM EDT CONTINUOUS PRN, Starting on Blossom 11/25/19 at 1112, Until Blossom 11/25/19 at 1222, Anesthesia Intra-op, Routine Rate/Dose Change 11/25/2019 11:14 AM EDT 200 mcg/kg/min 65.3 mL/hr New Bag 11/25/2019 11:12 AM EDT 150 mcg/kg/min 49 mL/hr documented in this encounter Care Teams Research Methods Instructor Relationship Specialty Start Date End Date Irving Wheeler MD PCP - General 06/23/[address] [place] [address] documented as of this encounter
--- OUTSIDE RECORDS SUMMARY | 2022-02-01 00:29 | XMS_ITS | Encounter Summary ---
:1960 Author Organization [facility] [place] [address] Care Team Providers Name Role Phone Irving Wheeler MD Primary Care Provider [phone] Reason for Visit Diagnostic Test (Routine) - Canceled Specialty Diagnoses / Procedures Referred By Contact Refer red To Contact Radiology Diagnoses Malignant gastrointestinal stromal tumor (GIST) of small intestine Emely Galdamez MD [facility] Rad Nuclear Med Procedures NM PET CT Skull Base to Mid-thigh [facility] [address] [address] Phone: Fax: Referral ID Status Reason Start Expiration Visits Visits Date Date Requested Authorized [id number] Canceled Specialty 12/07/2019 06/08/2021 1 0 Service Requested Encounter Details Date Type Department Care Team Description 12/09/2019 Hospital Encounter Nuclear Medicine at [facility] on Canceled Alanna Purdy MD (D-INSURANCE NOT [facility] AUT HORIZED) Drive [address] [place], [place] GENERAL SURGERY [address] [place] [address] [phone] Social History Tobacco Use Types Packs/Day Years [...] hours. 0 2019 mg Capsule, Delayed Release(E.C.) cholecalciferol, Vitamin Take 4,000 Units by 0 D3, 50 mcg (2,000 unit) mouth daily. Capsule omeprazole (PriLOSEC) 40 Take 40 mg by mouth 0 03/29/2020 mg Capsule, Delayed Daily. Release(E.C.) iron,carb/vit C/vit 50 mg. 0 01/23 B12/folic (IRON 100 PLUS ORAL) documented as of this encounter Plan of Treatment Upcoming Encounters Date Type Specialty Care Team Description 02/15/2022 Office Visit Hematology and Oncology Morris Dozier MD [facility] DR ONCOLOGY [place], [place] [address] (Wo rk) documented as of [...] Electronically signed by: Gurwinder Ortega [facility] ([phone]), at 12/29/2019 3:34 PM Narrative 12/29/2019 3:34 PM EDT EXAMINATION: NM PET CT SKULL BASE TO MID-THIGH ? CLINICAL HISTORY: Gastrointestinal cance r, staging GIST, locally advanced, staging TECHNIQUE: Following IV injection of 18- cubyzw-2-xqtooekfgwnk (FDG) a standard uptake of approximately 60 [...] staging TECHNIQUE: Following IV injection of 18- fpubwm-6-atizfxqpbpps (FDG) a standard uptake of approximately 60 [...] this report, please contact e number below. Morris Dozier MD IMG PET ORDERABLES documented in this encounter Visit Diagnoses Not on filedocumented in this encounter Care Teams Guidance Adviser Relationship Specialty Start Date End Date Irving Wheeler MD PCP - General 06/23/19 [address] [place] [address] documented as of this encounter
--- OUTSIDE RECORDS SUMMARY | 2022-02-01 00:29 | XMS_ITS | Encounter Summary ---
:1960 Author Organization [facility] [place] [address] Care Team Providers Name Role Phone Irvnig Wheeler MD Primary Care Provider [phone] Encounter Details Date Type Department Care Team Description 11/18/2019 Hospital [place] [address] Social History Tobacco Use Types Packs/Day Years Used Date Never Assessed Sex Assigned at Date Recorded Not on file documented as of this encounter Medications at Time of Discharge Medication Sig Dispensed Refills Start Date End Date sucralfate (Carafate) 1 gram Every 6 hours. 0 Tablet esomeprazole (NexIUM) 40 mg Every 12 hours. 0 Capsule, Delayed Release(E.C.) documented as of this encounter Plan of Treatment Upcoming Encounters Date Type Specialty Care Team Description 02/15/2022 Office Visit Hematology and Oncology Morris Dozier MD [facility] ONCOLOGY [place], [place] [address] (Wo rk) documented as of this encounter Procedures Procedure Name Priority Date/Time Associated Comments Diagnosis CARBOHYDRATE ANTIGEN Routine 11/18/2019 12:42 Res ults for this 19-9 PM EDT procedure are i n the results section. CEA Routine 11/18/2019 12:42 Results for this PM EDT procedure are i n the results section. documented in this encounter Results (ABNORMAL) Carbohydrate Antigen 19-9 (11/18/2019 12:42 PM EDT) P athologist Signature CA 19-9 133.0 (H) <=35.0 [facility] u/ml [facility] Specimen Anatomical Collection Method Collection Time Receive d Time (Source) Location / / Volume Laterality Blood specimen Venous Draw / 11/18/2019 12:42 11/18/19 20 9:45 (specimen) Unknown PM EDT PM EDT Resulting Agency Comment Spec In Lab Irving Wheeler MD CHEMISTRY ORDERABLES Performing Organization Address City/[facility]/[place] [address] CEA (11/18/2019 12:42 PM EDT) P athologist Signature CEA 1.1 <=3.8 ng/mL [facility] Comment: Reference range: ??(20-69 years): Non-smoker: ??less than or equal to 3.8 ng/mL Smoker: ??less than 5.5 ng/ml Specimen Anatomical Collection Method Collection Time Receive d Time (Source) Location / / Volume Laterality Blood specimen Venous Draw / 11/18/2019 12:42 11/18/19 20 9:45 (specimen) Unknown PM EDT PM EDT Resulting Agency Comment Spec In Lab Irving Wheeler MD CHEMISTRY ORDERABLES Performing Organization Address City/[facility] [place] [address] documented in this encounter Visit Diagnoses Not on filedocumented in this encounter Care Teams Manager Recruiting Relationship Specialty Start Date End Date Irving Wheeler MD PCP - General 06/23/19 [address] [place] [address] documented as of this encounter
--- OUTSIDE RECORDS SUMMARY | 2022-02-01 00:29 | XMS_ITS | Encounter Summary ---
:1960 Author Organization [facility] [address] Care Team Providers Name Role Phone Irving Wheeler MD Primary Care Provider [phone] Encounter Details Date Type Department Care Team Description 08/04/2019 Hospital [place] [address] Social History Tobacco Use Types Packs/Day [...] Morris Dozier MD [facility] ONCOLOGY [place], [place] [address] (Wo rk) documented as of this encounter Procedures Procedure Name Priority Date/Time Associated Diagnosis Comme nts SURGICAL PATHOLOGY Routine 08/04/2019 9:33 AM Res ults for this REPORT EDT procedure are i n the results section. documented in this encounter Results Surgical Pathology Report (08/04/2019 9:33 AM EDT) Component Value Ref Test Analysis Performed At [facility] Method Time Signature Surgical [id number] ? Location: [facility] Pathology [place] Report The signing pathologist has (i) examined the relevant preparation(s) for the MEMORIAL specimen(s) and (ii) rendered or confirmed the diagnosis(es) . HOSPITAL LABORATORY . ?Surgic al Pathology DIAGNOSIS Duodenal ulcer, biopsy: Benign duodenal mucosa with nonspecific duodenit is and fragment of ulcer bed. No evidence of malignancy. No H. pylori-like microorganism is seen. Electronically signed by: ??Felisa Conner MD Verified: ??08/06/2019 ?Pathologist Performed at: ??-[facility] Dept. of Pathology, [place], [place] ADDITIONAL STUDIES Immunohistochemistry Studies: Formalin-fixed, paraffin-emb edded tissue sections are studied using the polymer technique with appropriate positive and negative controls. ?These IHC studies provide the pathologist wit h adjunctive diagnostic information. Antibody specificity has been verified by testin g antibodies on a series of in-house tissues with known immunohistochemical perform ance characteristics. The clinical interpretation of any antibody positive stain ing or its absence is evaluated within the context of clinical presentation, morp hology, histopathological criteria and other diagnostic tests. Block ? Antibody ?Result (Positive /Negative) A1 ? H. pylori ?Negative ? CK AE1/3 ? Negative at ulcer bed CLINICAL INFORMATION Specimen Submitted: A - Duodenal ulcer Clinical History and Diagnosis: Duodenal ulcer lesser curve of duodenum. I saw it 5 weeks ago or illegible and since then had treated her with a PPI. She continued to have some blood loss I illegible her today and ulcer is stil l present. I did biopsy today because it is not healing. Referring Identifier: ?(not provided) SPECIMEN PROCESSING A - Labeled/Fixative: #1 duodenal ulcer, formalin. Quantity/Size: Three, ranging less than 0.1-0.2 cm. Tissue Description: Soft, england-pink tissues. Sections/Processing: Submitted en toto ??in 1 cassette labeled A1. ??MLL Specimen (Source) Anatomical Collection Method Collection Time Re ceived Time Location / / Volume Laterality 08/04/2019 9:33 AM EDT Robert Harris DO PATHOLOGY/CYTOLOGY ORDERABLE S Performing Organization Address City/State/[facility] [place] [address] documented in this encounter Visit Diagnoses Not on filedocumented in this encounter Care Teams Blockmason Relationship Specialty Start Date End Date Irving Wheeler MD PCP - General 06/23/[address] [place] [address] documented as of this encounter
--- OUTSIDE RECORDS SUMMARY | 2022-02-01 00:29 | XMS_ITS | Encounter Summary ---
:1960 Author Organization [facility] Address [address] [place] [address] Care Team Providers Name Role Phone Irving Wheeler MD Primary Care Provider [phone] Reason for Visit Auth/Cert Specialty Diagnoses / Procedures Referred By Contact Refer red To Contact Diagnoses Liver mass Pancreatic mass Liver Mass, left lobe, pancreatic mass Procedures PRO ENDOSCOPIC US EXAM, ESOPH UPPER EUS- ENDOSCOPIC ULTRASOUND Referral ID Status Reason Start Date Expiration Date Visits Requ ested Visits Authorized [id number] 1 1 Encounter Details Date Type Department Care Team Description 11/25/2019 Surgery Gastroenterology at [facility] Pedrito Arrieta, UPPER EUS- ENDOSCOPIC [facility] Gurwinder [place] [address] [facility] [phone] GASTROENTEROLOGY DEPT. [place], [place] [address] Social History Tobacco Use Types [...] Sign Reading Time Taken Comments Blood Pressure 97/52 11/25/2019 12:40 PM EDT Pulse 79 11/25/2019 10:10 AM EDT Temperature 37.5 ??C (99.5 ??F) 11/25/2019 10:10 AM EDT Respiratory Rate 16 11/25/2019 12:40 PM EDT Oxygen Saturation 100% 11/25/2019 12:40 PM EDT Inhaled Oxygen Concentration - - Weight 54.4 kg (120 lb) 11/25/2019 10:10 AM EDT Height 162.6 cm (5' 4) 11/25/2019 10:10 AM EDT Body Mass Index 20.6 11/25/2019 10:10 AM EDT documented in this encounter Discharge Instructions Patient InstructionsPedrito Arrieta MD - 11/25/2019 2:09 PM EDT Please see Recommendations in the Provation procedure report which is documented in the procedural note in E-DH. AttachmentsThe following attachments cannot be sent through Care Everywhere. Ultrasound: Endoscopic (Oral): Post-op (Armenian)documented in this encounter Medications at Time of [...] 0 01/23 B12/folic (IRON 100 PLUS ORAL) sucralfate (Carafate) 1 Take 1 g by mouth 4 0 12/07/2019 gram Tablet times daily. documented as of this encounter H&P Notes Pedrito Arrieta MD - 11/25/2019 10:46 AM EDT Gastroenterology and Hepatology Pre-Procedure History and Physical Exam Procedure: EUS: Indication: Had anemia and non-healing DU-then CT scan which showed large pancreas head/uncinate mass. Mass compresses duodenum and CBD but LFTs are normal. Her symptoms include bloating. Brother had pancreas cancer. EXAM: HEENT: Airway examined, oropharynx clear Mallampati Score: Per anesthesia LUNGS: Clear to auscultation HEART: Regular rate and rhythm, normal S1, S2 ABDOMEN: Normal bowel sounds, soft, non tender, non distended, A/P Proceed with the planned endoscopic procedure. ASA 2 - Patient with mild systemic disease with no functional limitations Sedation Plan: anesthesia Risks and benefits of the procedure explained to the patient. Consent signed. x Tammie Watts MD - 11/25/2019 9:55 AM EDT PROBLEM LIST There is no problem list on file for this patient. HISTORY OF PRESENT ILLNESS Mary Kay Gonzalez is a 59 y.o. y/o who presents for endoscopic ultrasound with biopsy for evaluation ofpancreas head mass. MEDICATIONS No current facility-administered medications on file prior to encounter. No current outpatient medications on file prior to encounter. PHYSICAL EXAM: There were no vitals taken for this visit. GEN: Alert, cooperative. Pleasant. In NAD MP I ASA II HEENT: No oropharyngeal lesions. Neck supple. No masses. Thyroid symmetric LUNGS: CTAB CARD: RRR without m/g/r ABD: Non-distended. Active BS. Soft. Benign. No masses. No HSM. No succussion splash. No bruits RECENT LABS No results found for this or any previous visit (from the past 24 hour(s)). ASSESSMENT AND PLAN Mary Kay Gonzalez is a 59 y.o. y/o who presents for endoscopic evaluation. Risks extensively discussed including bleeding, infection, reaction to anesthesia, perforation, pancreatitis (if applicable), bile duct injury (if applicable), missing a cancer (if applicable) and/or other unforseen complication. Consent signed and patient well informed of the risks of the procedure. documented in this encounter Miscellaneous Notes Op Note - Pedrito Arrieta MD - 11/25/2019 2:09 PM EDT [facility] Operative Note Patient Name: Mary Kay Gonzalez : [id number] MR#: [id number] Case Date: 11/25/2019 Surgeon: Surgeon(s) and Role: * Pedrito Arrieta MD - Primary Preoperative diagnosis: Liver Mass, left lobe, pancreatic mass Postoperative diagnosis: * No post-op diagnosis entered * Procedure(s) (LRB): UPPER EUS- ENDOSCOPIC ULTRASOUND (N/A) Anesthesia: MAC Full procedure note is documented under the Procedure section of eDH. documented in this encounter Plan of Treatment Upcoming Encounters Date Type Specialty Care Team Description 02/15/2022 Office Visit Hematology and Oncology Morris Dozier MD [facility] DR ONCOLOGY [place] [address] (Wo rk) documented as of this encounter Procedures Procedure Name Priority Date/Time Associated Comments Diagnosis SOLID TUMOR NGS PANEL Routine 11/25/2019 11:45 Re sults for this AM EDT procedure are i n the results section. NON-OFFLINE CUTTER FINAL REPORT Routine 11/25/2019 11:45 Res ults for this AM EDT procedure are i n the results section. CYTOPATHOLOGY Routine 11/25/2019 11:45 Results fo r this NON-GYNECOLOGICAL AM EDT procedure are in the results section. UPPER EUS- ENDOSCOPIC 11/25/2019 11:07 Liver Mass, lef t ULTRASOUND AM EDT lobe, pancreatic mass UPPER EUS-ENDOSCOPIC Routine 11/25/2019 10:55 Res ults for this ULTRASOUND AM EDT procedure are i n the results section. documented in this encounter Results Non-Pulp Grinder Feeder Final Report (11/25/2019 11:45 AM EDT) Component Value Ref Test Analysis Performed At [facility] Range Method Time Signature Non-Pulp Grinder Feeder [id number] ? Location: 4T; EA; Mikel SAMPSON Final Report DONNA The signing pathologist has (i) examined the relevant preparation(s) for the MEMORIAL specimen(s) and (ii) rendered or confirmed the diagnosis(es) . HOSPITAL LABORATORY . ? No n-Pulp Grinder Feeder Final DIAGNOSIS Neoplastic Cells Present See discussion. Electronically signed by: ??Jacob Bull MD Verified: ??11/29/2019 ?Pathologist Performed at: ??-[facility] Dept. of Pathology, [place], [place] DISCUSSION Pancreas, head (EUS-guided FNA): Consistent with g astrointes tinal stromal tumor (GIST), epithelioid and spindle cell type (see note). Note: ??The lesional cells a re immunoreactive for Ckit(CD117) and DOG1; they are essentially negative for SM A, desmin, S100, CKAE1/3, synaptophysin and chromogranin. The immunostain findings julian pport the diagnosis. Final risk assessment will be made following examination of resection specimen. Molecular studies are being ordered; whe n available, results will be issued in molecular pathology reports. Dr. Conner has kindly r eviewed the case and concurs with the above diagnosis. --- Immunohistochemistry Studies --- Interpretation: See note. ? Immunohistochemical a ssays were performed (on paraffin-embedded cell block sections fixed in 10% neutr al buffered formalin for 6-72 hours) using the polymer technique with appropriate controls. The sections are studied for Ckit(CD117), DOG1, SMA, desmin, S100, CKAE1/3, synaptophysin and chromogranin . These immunohistochemical st udies provide ancillary information and are used only in conjunction with standard diagnostic procedures. (Cell block was examined. ?? An additional levels examined. ) CLINICAL INFORMATION Specimen Source : Pancreas, head (EUS-guided FNA, assisted) Pertinent Clinical Data and Significant Therapy: 59 yrs old female with a pancreatic head mass Clinical Impression : Large pancreatic head mass r/o neoplasm Pertinent Radiologic Findings ??: (not provided) Gross Description: Received in Formalin approxi mately 50 mL total volume of cloudy, pink fluid, with clots. . CLINICAL INFORMATION Total Preparation: Diff-Quik 2; Pap Stain 2; Cell Block 1. Fine Needle Aspiration Immediate Assessment: Evaluation Episode #1 (1 slide): Inadequate for final diagnosis. Rare clusters of atypical cells. Evaluation Episode #2 (1 slide): Adequate for final diagnosis. Lesional; atypical cells with oval to elongated nuclei. More to CB. Immediate Assessment by: Jacob Bull MD. Note: The above attending cytopathologist personally exami eleni the Immediate Assessment slides and rendered the Imme diate Assessment. Such assessments are preliminary; see Diagnosis and Discussion for final interpr etation. Specimen (Source) Anatomical Collection Method Collection Time Re ceived Time Location / / Volume Laterality 11/25/2019 11:45 AM EDT Pedrito Arrieta MD PATHOLOGY/CYTOLOGY ORDERABLE S Performing Organization Address City/[facility]/ZIP Code Phon e Number [address] Solid Tumor NGS Panel (11/25/2019 11:45 AM EDT) Specimen Anatomical Collection Method Collection Time Receive d Time (Source) Location / / Volume Laterality Tissue specimen 11/25/2019 11:45 12/06/19 20 1:28 (specimen) AM EDT PM EDT Resulting Agency Comment Spec In Lab Pedrito Arrieta MD PATHOLOGY/CYTOLOGY ORDERABLE S Performing Organization Address City/[facility]/ZIP [place] [address] Cytopathology Non-Gynecological (11/25/2019 11:45 AM EDT) Specimen Anatomical Collection Method Collection Time Receive d Time (Source) Location / / Volume Laterality AP Specimen 11/25/2019 11:45 11/25/2019 AM EDT 11:45 AM EDT Narrative [facility] LAB[facility] - 11/25/2019 11:45 AM EDT Specimen requisition ordered. ??Separate Pathology report to follow Pedrito Arrieta MD PATHOLOGY/CYTOLOGY ORDERABLE S Performing Organization Address [facility] [place] [address] UPPER EUS-ENDOSCOPIC ULTRASOUND (11/25/2019 10:55 AM EDT) Component Value Ref Test Analysis Performed At [facility] gist Range Method Time Signature UPPER [facility] PROVATION ENDOSCOPIC Endoscopy ULTRASOUND _ Procedure Date: 11/25/2019 10:55 AM ? Patient Name: Mary Kay Gonzalez ? Date of : 1960 ? Age: 59 ? Order #: [id number] ? Instrument Name: [id number] ? Procedure: ? Upper EUS Indications: ? Suspected mass in pancreas on CT sc an Providers: ? Pedrito Arrieta MD, Antony Salinas ? Yuko Flores Sehrish Jamot Referring MD: ?Irving Wheeler MD Medicines: ? Monitored Anesthesia Care Complications: ? No immediate complications. Procedure: ? Pre-Anesthesia Assessment: ? - [place] Protocol: ? - Pre-procedure Verification: Prior ? to the procedure, the patient 's ? identity was verified by full name. ? The patient's identity was ve rified ? on all pertinent medical aman rds, ? including History and Physica l. Also ? prior to the procedure, a His tory and ? Physical was performed, and p atient ? medications, allergies and ? sensitivities were reviewed. The ? patient's tolerance of previo us ? anesthesia was reviewed. The risks ? and benefits of the procedure and the ? sedation options and risks we re ? discussed with the patient. A ll ? questions were answered and i nformed ? consent was obtained. ? - Marking: The endoscopic pro cedure ? was visually marked on a malik ent ? wrist band delineating the pa tient ? name, proposed procedure and ? endoscopist's initials. ? - Time-Out: Prior to the star t of the ? procedure, the patient's ? identification, proposed proc edure, ? accurate signed consent, jaimie ectly ? labeled images and records, a nd need ? for prophylactic antibiotics were ? verified by the physician, tammy gibbs nurse ? and the anesthesiologist in t he ? procedure room. ? - Using IV propofol under the ? supervision of an anesthesiol ogist ? was determined to be medicall y ? necessary for this procedure based on ? complex procedure (ERCP, EUS) . ? The procedure, indications, b enefits, ? risks and alternatives were e xplained ? to the patient. Specifically ? discussed were potential ? complications including, but not ? limited to, bleeding, perfora tion, ? infection, missing a cancer, and ? adverse medication reactions. The ? Endosonoscope was introduced through ? the mouth, and advanced to th e second ? part of duodenum. The upper E US was ? accomplished without difficul ty. The ? patient tolerated the procedu re well. ? Findings: ? ENDOSCOPIC FINDING: : ? The examined esophagus was endoscopically normal. ? The entire examined stomach was endoscopically normal . ? There was evidence of bulging in the duodenal bulb ? concerning for possible mass effect from pancreas ? mass. There was no evidence of duodenal ulceration ? noted. ? ENDOSONOGRAPHIC FINDING: : ? The esophagus, stomach and duodenum were visualized ? endosonographically. ? An irregular mass was identified in the region of the ? pancreatic head. The mass was focally adherent to the ? duodenal wall and may arise from it. The mass was ? heterogenous. The mass measured 61 mm by 54 mm in ? maximal cross-sectional diameter. The outer margins ? were irregular. An intact interface was seen between ? the mass and the adjacent vascular structures ? suggesting a lack of invasion. Fine needle biopsy was ? performed. Color Doppler imaging was utilized prior ? to needle puncture to confirm a lack of significant ? vascular structures within the needle path. Six ? passes were made with the 22 gauge SharkCore biopsy ? needle using a transduodenal approach. A visible core ? of tissue was obtained. A preliminary cytologic ? examination was performed. Final cytology results are ? pending. ? There was no sign of significant endosonographic ? abnormality in the gallbladder. The bile duct appears ? to be compressed laterally but the mass as it courses ? around it. ? Mildly dilated intrahepatic ducts. Otherwise normal ? visualized portions of liver (limited exam). ? No lymphadenopathy seen. ? Moderate Sedation: ? Not applicable - See Anesthesia documentation Impression: ?6 cm mass in the region of the ? pancreas head that may actual ly be ? arising from the duodenal wal l and ? may represent a GIST or sarco ma, less ? likely a neuroendocrine tumor or ? adenocarcinoma-s/p FNB. ? - ERCP deferred as the bile d uct is ? extrinsically compressed but not ? clearly obstructed yet, and L FTs are ? normal. Recommendation: ?- Discharge patient to home. ? - Advance diet as tolerated. ? - Await cytology results. ? - Present at GI Tumor Board f or ? treatment recommendations. ? - The attending physician maurisio beard ? above was present for the ent tu ? procedure. ? Procedure Code(s): ?? --- Professional --- ? 84790, Esophagogastroduodenos copy, ? flexible, transoral; with ? transendoscopic ultrasound-gu ided ? intramural or transmural fine needle ? aspiration/biopsy(s), (includ es ? endoscopic ultrasound examina tion ? limited to the esophagus, sto mach or ? duodenum, and adjacent struct ures) Diagnosis Code(s): ?? --- Professional --- ? K86.89, Other specified disea ses of ? pancreas ? R93.3, Abnormal findings on ? diagnostic imaging of other p arts of ? digestive tract ? --- Technical --- ? K86.89, Other specified disea ses of ? pancreas ? R93.3, Abnormal findings on ? diagnostic imaging of other p arts of ? digestive tract CPT copyright 2019 [employer]. All rights reserved. The codes documented in this report are preliminary and upon various exceptionalities teacher review may be revised to meet current compliance requirements. Attending Participation: ? I was present and participated during the entire ? procedure, including non-bah portions. ? Pedrito Arrieta MD 11/25/2019 1:55:46 PM This report has been signed electronically. Number of Addenda: 0 Note Initiated On: 11/25/2019 10:55 AM Specimen (Source) Anatomical Collection Method Collection Time Re ceived Time Location / / Volume Laterality 11/25/2019 10:55 AM EDT Irving Wheeler MD GENERAL SURGICAL ORDERABLES Performing Organization Address City/State/ZIP Code Phon e Number PROVATION documented in this encounter Visit Diagnoses Not on filedocumented in this encounter Administered Medications Inactive Administered Medications - up to 3 most recent administrations Medication Order MAR Action Action Date Dose Rate Site lactated ringers infusion New Bag 11/25/2019 10:26 AM 100 mL/hr 100 mL/hr 100 mL/hr, Intravenous, EDT CONTINUOUS, Starting on Blossom 11/25/19 at 1045, Until Blossom 11/25/19 at 1333, Endoscopy (Day of Procedure) documented in this encounter Active and Recently Administered Medications Times are shown in EDT. Continuous Medication Order 11/23/2019 11/24/2019 11/25/2019 lactated ringers infusion (CANCELED) 1026 (New Bag - Provider: Rosario F [place], RN)1218 (Anesthesia Volume Adjustment - Provider: Brendon Diez CRNA) 100 mL/hr, at 100 mL/hr, Intravenous, CO NTINUOUS, Starting Blossom 11/25/19 at 1045, Until Blossom 11/25/19 at 1333, Endo (Day of Procedure) documented in this encounter Care Teams Aeronautical Engineering Teacher Relationship Specialty Start Date End Date Irving Wheeler MD PCP - General 06/23/[address] [place] [address] documented as of this encounter
--- OUTSIDE RECORDS SUMMARY | 2022-02-01 00:29 | XMS_ITS | Encounter Summary ---
:1960 Author Organization [place] [address] Care Team Providers Name Role Phone Irving Wheeler MD Primary Care Provider [phone] Reason for Visit Auth/Cert Specialty Diagnoses / Procedures Referred By Contact Refer red To Contact Diagnoses Liver mass Pancreatic mass Liver Mass, left lobe, pancreatic mass Procedures PRO ENDOSCOPIC US EXAM, ESOPH UPPER EUS- ENDOSCOPIC ULTRASOUND Referral ID Status Reason Start Date Expiration Date Visits Requ ested Visits Authorized [id number] 1 1 Encounter Details Date Type Department Care Team Description 11/25/2019 Hospital Encounter Gastroenterology at [facility] Pedrito Arrieta, [facility] [place] [address] [facility] [phone] CENTER GASTROENTEROLOGY DEPT. [place], [place] [address] Social History Tobacco Use Types [...] Sign Reading Time Taken Comments Blood Pressure 96/58 11/25/2019 12:50 PM EDT Pulse 79 11/25/2019 10:10 AM EDT Temperature 37.5 ??C (99.5 ??F) 11/25/2019 10:10 AM EDT Respiratory Rate 16 11/25/2019 12:50 PM EDT Oxygen Saturation 100% 11/25/2019 12:50 PM EDT Inhaled Oxygen Concentration - - [...] through Care Everywhere. Ultrasound: Endoscopic (Oral): Post-op (Frisian)documented in this encounter Medications at Time of [...] Arrieta MD - 11/25/2019 2:09 PM EDT [facility] Operative Note Patient Name: Mary Kay Gonzalez : [id number] MR#: [id number] Case Date: 11/25/2019 Surgeon: Surgeon(s) and Role: [...] Visit Hematology and Oncology Morris Dozier MD [facility] DR ONCOLOGY [place] [address] (Wo rk) documented as of this encounter Procedures Procedure Name Priority Date/Time Associated Comments Diagnosis SOLID TUMOR NGS PANEL Routine 11/25/2019 11:45 Re sults for this AM EDT procedure are i n the results section. NON-JITTERBUG OPERATOR FINAL REPORT Routine 11/25/2019 11:45 Res ults [...] results section. documented in this encounter Results Non-Registered Nurse Cardiac Telemetry Final Report (11/25/2019 11:45 AM EDT) Component Value Ref Test Analysis Performed At [facility] gist Range Method Time Signature Non-Registered Nurse Cardiac Telemetry [id number] ? Location: 4T; EA08; A [facility] Final Report EURE The signing pathologist has (i) examined the relevant preparation(s) for the MEMORIAL specimen(s) and (ii) rendered or confirmed the diagnosis(es) . HOSPITAL LABORATORY . ? No n-Registered Nurse Cardiac Telemetry Final DIAGNOSIS Neoplastic Cells Present See discussion. Electronically signed by: ??Jacob Bull MD Verified: ??11/29/2019 ?Pathologist Performed at: ??-[facility] Dept. of Pathology, [place], [place] DISCUSSION Pancreas, head (EUS-guided FNA): Consistent [...] MD PATHOLOGY/CYTOLOGY ORDERABLE S Performing Organization Address City/[facility]/ZIP Code Phon e Number [address] Solid Tumor NGS Panel (11/25/2019 11:45 AM EDT) Specimen Anatomical Collection Method Collection Time Receive d Time (Source) Location / / Volume Laterality Tissue specimen 11/25/2019 11:45 12/06/19 20 1:28 (specimen) AM EDT PM EDT Resulting Agency Comment Spec In Lab Pedrito Arrieta MD PATHOLOGY/CYTOLOGY ORDERABLE S Performing Organization Address City/[facility]/[place] [address] Cytopathology Non-Gynecological (11/25/2019 11:45 AM EDT) Specimen Anatomical Collection Method Collection Time Receive d Time (Source) Location / / Volume Laterality AP Specimen 11/25/2019 11:45 11/25/2019 AM EDT 11:45 AM EDT Narrative [facility] LABORAT ORY - 11/25/2019 11:45 AM EDT Specimen requisition ordered. ??Separate Pathology report to follow Pedrito Arrieta MD PATHOLOGY/CYTOLOGY ORDERABLE S Performing Organization Address City/[facility] [place] [address] UPPER EUS-ENDOSCOPIC ULTRASOUND (11/25/2019 10:55 AM EDT) Component Value Ref Test Analysis Performed At [facility] gist Range Method Time Signature UPPER [facility] PROVATION ENDOSCOPIC Endoscopy ULTRASOUND _ Procedure Date: 11/25/2019 10:55 AM ? Patient Name: Mary Kay Gonzalez ? Date of : 1960 ? Age: 59 ? Order #: [id number] ? Instrument Name: [id number] ? Procedure: ? Upper EUS Indications: ? Suspected mass in pancreas on CT sc an Providers: ? Pedrito Arrieta MD, Antony Salinas ? Yuko Flores Sehrish Jamot Referring MD: ?Irving Wheeler MD Medicines: ? Monitored Anesthesia Care Complications: ? No immediate complications. Procedure: ? Pre-Anesthesia Assessment: ? - [place] Protocol: ? - Pre-procedure Verification: Prior ? [...] Procedure Code(s): ?? --- Professional --- ? 37907, Esophagogastroduodenos copy, ? flexible, transoral; with ? [...] of ? digestive tract CPT copyright 2019 [employer]. All rights reserved. The codes documented in this report are preliminary and upon textile screen printer review may be revised to meet current [...] (CANCELED) 1026 (New Bag - Provider: Rosario Bhatti RN)1218 (Anesthesia Volume Adjustment - Provider: Brendon Diez, KATIE) 100 mL/hr, at 100 mL/hr, Intravenous, CO NTINUOUS, Starting Blossom 11/25/19 at 1045, Until Blossom 11/25/19 at 1333, Endo (Day of Procedure) documented in this encounter Care Teams Interior Decorator Relationship Specialty Start Date End Date Irving Wheeler MD PCP - General 06/23/[address] [place] [address] documented as of this encounter
--- OUTSIDE RECORDS SUMMARY | 2022-02-01 00:29 | XMS_ITS | Encounter Summary ---
:1960 Author Organization [place] [address] Care Team Providers Name Role Phone Irving Wheeler MD Primary Care Provider [phone] Encounter Details Date Type Department Care Team Description 12/07/2019 Multidisciplinary Care Gastroenterology at [facility] art Committee GUILLERMINA Bridges MD [facility] [place] [address] GASTROENTEROLO [phone] [place] [address] Social History Tobacco Use Types Packs/Day Years [...] documented as of this encounter Progress Notes Pedrito Arrieta MD - 12/07/2019 7:03 AM EDT GI - Tumor Board Note Date Presented: 12/07/2019 Presenting Physician: Berny Diagnosis/Tumor Site:GIST Is this Metastatic Disease: No Synopsis of History/HPI:Had anemia and non-healing DU-then CT scan which showed large pancreas head/uncinate mass. Mass compresses duodenum and CBD but LFTs are normal. Her symptoms include bloating. Brother had pancreas cancer. Imaging: CT-6.9 cm uncinate/periduodenal mass; mild CBD and PD dilation EUS-6 cm mass in the region of the ?pancreas head that may actually be ?arising from the duodenal wall and ?may represent a GIST or sarcoma, less ? likely a neuroendocrine tumor or ?adenocarcinoma-s/p FNB. ?- ERCP deferred as the bile duct is ?extrinsically compressed but not ?clearly obstructed yet, and LFTs are ?normal. 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 Note: ??The lesional cells are immunoreactive for Ckit(CD117) and DOG1; they are ??essentially negative for SMA, desmin, S100, CKAE1/3, synaptophysin and chromogranin. ??The immunostain findings support the diagnosis. Final risk assessment will be made ??following examination of resection specimen. Molecular studies are being ordered; when available, results will be issued in ??molecular pathology reports. Stage: Clinical Data (Exams, Labs, etc.): Molecular Pathology Results: Clinical Trial Availability: NA Options Discussed: Consider pre-operative [place] prior to resection given size and location of the tumor. Recommendations: Surgical Oncology consult and Medical Oncology consult. DISCLAIMER: The patient was discussed and the tumor board made recommendations but it is ultimately up to the treatment provider(s) and the patient to determine the patient???s care. documented in this encounter Plan of Treatment Upcoming Encounters Date Type Specialty Care Team Description 02/15/2022 Office Visit Hematology and Oncology Morris Dozier MD [facility] [place], [place] [address] (Wo rk) documented as of this encounter Visit Diagnoses Not on filedocumented in this encounter Care Teams Broadcast Transmitter Operator Relationship Specialty Start Date End Date Irving Wheeler MD PCP - General 06/23/[address] [place] [id number] documented as of this encounter
[2022-02-01] MEDS: Gastrografin 120 ML BTL 25 ML IVP (11:48)
[2022-02-01 11:49] LABS: Absolute Basophil Count 0.02 10^3/uL (0.0-0.2); Absolute Eosinophil Count 0.04 10^3/uL (0.0-0.7); Absolute Lymphocyte Count 1.45 10^3/uL (1.2-3.4); Absolute Monocyte Count 0.26 10^3/uL (0.1-0.8); Absolute Neutrophil Count 3.01 10^3/uL (1.2-6.7); Basophils % 0.4; Eosinophils % 0.8; HCT 39.1 % (36.0-46.0); Lymphocytes % 30.3; MCH 32.2 pg (27.0-33.0); MCHC 33.2 % (32.0-36.0); MCV 97 fL (80-95); Monocytes % 5.4; Neutrophils % 63.1; Platelet Count 219 10^3/uL (130-400); RBC 4.04 10^6/uL (3.93-5.22); RDW 13.5 % (11.7-14.6); RDW-SD 48.9 fL; WBC 4.78 10^3/uL (4.4-10.8)
[2022-02-01 12:08] LABS: ALT 39 U/L (14-59); AST 28 U/L (15-37); Albumin 4.1 g/dL (3.4-5.0); Alkaline Phosphatase 61 U/L (46-116); Anion Gap 5.4 mmol/L (3-11); BUN 11 mg/dL (7-18); Bilirubin, Total 0.6 mg/dL (0.2-1.0); CO2 29.6 mmol/L (21.0-32.0); CREATININE 0.6 mg/dL (0.55-1.02); Chloride 104 mmol/L (98-107); Estimated GFR 103.33 (mL/min/1.73m2); Glucose 91 mg/dL (74-106); Potassium 3.8 mmol/L (3.5-5.1); Sodium 139 mmol/L (136-145); Total Protein 7.4 g/dL (6.4-8.2)
[2022-02-01 12:16] LABS: Calcium 8.8 mg/dL (8.5-10.1)
--- NOTE | 2022-02-01 13:00 | DI.CT_ITS ---
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 TECHNIQUE: Imaging Protocol: Axial computed tomography images with coronal and sagittal reformatted images were created and reviewed CONTRAST MATERIAL: Intravenous: Omnipaque 350 Contrast volume:100 ml Oral: no COMPARISON: CT CT CHEST/ABD/PEL W from 08/01/2021 FINDINGS: CHEST: Tracheobronchial tree: Patent where visualized. Mediastinum and Belén: No dominant adenopathy or fluid collection. Pulmonary parenchyma: No consolidation or dominant measurable mass. Stable tiny right middle and low er lobe nodules. Pleura: No effusion or pneumothorax. Lymph nodes: Within normal limits. Aorta: Thoracic portion non-dilated. Heart: Heart size is normal. No pericardial effusion Bones: Unremarkable for age. No lytic or blastic lesions. ABDOMEN: Liver: Normal density. No measurable mass. Gallbladder and biliary tract: Status post cholecystectomy. Biliary tablet enteric anastomosis. Sma ll amount of biliary air. No radiodense calculus or dilation. Pancreas: Prior resection of the pancreatic head, stable appearance. No visible pancreatic mass. St able mild dilatation of the pancreatic duct. Bowel: Gastrojejunostomy Spleen: Normal. Kidneys: Normal size, contour and axis. No radiodense stones or obstructive uropathy. No masses seen. Adrenal glands: No masses seen. Aorta: Abdominal portion non-dilated. Lymph nodes: Within normal limits. Soft tissues: Unremarkable. PELVIS: Bladder: Symmetric distention, no gross wall thickening. Bowel: Large quantity of stool. No obstruction or bowel wall thickening. Appendix normal. Peritoneal cavity: No ascites, collection or mesenteric inflammatory response. Bones: Mild degenerative changes and mild scoliosis. Reproductive organs: Within normal limits. Prominent periuterine veins could indicate pelvic congesti on syndrome. IMPRESSION: Stable benign-appearing tiny pulmonary nodules. Status post resection of the pancreatic head, gastrojejunostomy and biliary anastomosis. No evidence of recurrence mass, adenopathy or metastatic disease. A large quantity of stool is incidentally not ed. RADIATION DOSE DELIVERED: 1,111.83mGy.cm Total DLP DATA REPOSITORY: All CT scans at this facility are submitted to the National Radiology Data Registry (NRDR) Dose Index Registry (DIR) with the [employer] (ACR). RADIATION OPTIMIZATION: All CT scans at this facility use at least one of these dose optimization te chniques: automated exposure control; mA and/or kV adjustment per patient size (includes targeted exa ms where dose is matched to clinical indication); or iterative reconstruction.
[2022-02-01] MEDS: Omnipaque 350 MG/ML 500 ML BTL-Imaging package IJ (13:15)
[2022-02-01] MEDS: Normal Saline Flush 10 ML SYR IVP (13:16)
== END ==
PROVIDERS: PCP Family Medicine; Visit Provider Internal Medicine Hematology & Oncology
DX: C49.A3 Gastrointestinal stromal tumor of small intestine (principal); Z98.890 Other specified postprocedural states
CPT/HCPCS: 74177; 80053; 82306; 71260; 85025

== ENCOUNTER 2022-02-15 14:07 | Outpatient (CLI) | payer MEDICAID, SELFPAY ==
[2022-02-15 13:38] LABS: Abs Immature Grans 0.01 10^3/uL (0.0-0.06); Absolute Basophil Count 0.01 10^3/uL (0.0-0.2); Absolute Eosinophil Count 0.04 10^3/uL (0.0-0.7); Absolute Monocyte Count 0.29 10^3/uL (0.1-0.8); Absolute Neutrophil Count 3.55 10^3/uL (1.2-6.7); Basophils % 0.2; Eosinophils % 0.8; HCT 37.1 % (36.0-46.0); HGB 12.7 g/dL (11.2-15.7); Immature Grans % 0.2; Lymphocytes % 26.4; MCH 32.6 pg (27.0-33.0); MCHC 34.2 % (32.0-36.0); MCV 95 fL (80-95); MPV 9.6 fL (8.0-11.0); Monocytes % 5.5; Neutrophils % 66.9; Platelet Count 207 10^3/uL (130-400); RDW 13.7 % (11.7-14.6); RDW-SD 48.2 fL
[2022-02-15 13:54] LABS: ALT 42 U/L (14-59); AST 30 U/L (15-37); Albumin 4.1 g/dL (3.4-5.0); Alkaline Phosphatase 56 U/L (46-116); Anion Gap 5.1 mmol/L (3-11); BUN 14 mg/dL (7-18); Bilirubin, Total 0.4 mg/dL (0.2-1.0); CO2 30.9 mmol/L (21.0-32.0); CREATININE 0.6 mg/dL (0.55-1.02); Calcium 9.1 mg/dL (8.5-10.1); Chloride 106 mmol/L (98-107); Estimated GFR 103.33 (mL/min/1.73m2); Glucose 94 mg/dL (74-106); Potassium 3.8 mmol/L (3.5-5.1); Sodium 142 mmol/L (136-145)
[2022-02-18 04:42] LABS: Vitamin D 25 Total 29.9 ng/mL (30-100)
== END 2022-02-15 14:08 | disposition home or self-care (01) ==
LOC: LBO 14:10
PROVIDERS: PCP Family Medicine; Visit Provider Internal Medicine Hematology & Oncology
DX: C49.A3 Gastrointestinal stromal tumor of small intestine (principal); E55.9 Vitamin D deficiency, unspecified
CPT/HCPCS: 36415; 80053; 82306; 85025

== ENCOUNTER 2022-05-24 01:16 | Outpatient (CLI) | payer MEDICAID, SELFPAY ==
[2022-05-24 13:52] LABS: Abs Immature Grans 0.01 10^3/uL (0.0-0.06); Absolute Basophil Count 0.02 10^3/uL (0.0-0.2); Absolute Eosinophil Count 0.02 10^3/uL (0.0-0.7); Absolute Lymphocyte Count 1.58 10^3/uL (1.2-3.4); Absolute Monocyte Count 0.31 10^3/uL (0.1-0.8); Absolute Neutrophil Count 3.44 10^3/uL (1.2-6.7); Basophils % 0.4; Eosinophils % 0.4; HCT 36.4 % (36.0-46.0); HGB 12.4 g/dL (11.2-15.7); Immature Grans % 0.2; Lymphocytes % 29.4; MCHC 34.1 % (32.0-36.0); MCV 97 fL (80-95); MPV 9.8 fL (8.0-11.0); Monocytes % 5.8; Neutrophils % 63.8; Platelet Count 204 10^3/uL (130-400); RBC 3.76 10^6/uL (3.93-5.22); RDW 13.8 % (11.7-14.6); RDW-SD 48.9 fL; WBC 5.38 10^3/uL (4.4-10.8)
[2022-05-24 14:17] LABS: ALT 48 U/L (14-59); AST 36 U/L (15-37); Albumin 4.1 g/dL (3.4-5.0); Alkaline Phosphatase 49 U/L (46-116); Anion Gap 6.9 mmol/L (3-11); BUN 12 mg/dL (7-18); Bilirubin, Total 0.4 mg/dL (0.2-1.0); CO2 28.1 mmol/L (21.0-32.0); CREATININE 0.6 mg/dL (0.55-1.02); Calcium 8.5 mg/dL (8.5-10.1); Chloride 105 mmol/L (98-107); Estimated GFR 103.33 (mL/min/1.73m2); Glucose 114 mg/dL (74-106); Potassium 3.7 mmol/L (3.5-5.1); Sodium 140 mmol/L (136-145); Total Protein 6.8 g/dL (6.4-8.2)
== END 2022-05-24 01:17 | disposition home or self-care (01) ==
LOC: LBO 01:16
PROVIDERS: PCP Family Medicine; Visit Provider Internal Medicine Hematology & Oncology
DX: C49.A3 Gastrointestinal stromal tumor of small intestine (principal)
CPT/HCPCS: 36415; 80053; 85025

== ENCOUNTER 2022-08-16 00:36 | Outpatient (CLI) | payer MEDICAID, SELFPAY ==
--- NOTE | 2022-08-16 | DI.CT_ITS ---
Exam(s) CT CHEST/ABD/PEL W EXAM: CT CHEST/ABD/PEL W CLINICAL HISTORY: GIST C49.A3 RESTAGING TECHNIQUE: Imaging Protocol: Axial computed tomography images with coronal and sagittal reformatted images were created and reviewed CONTRAST MATERIAL: Intravenous: Omnipaque 350 contrast volume:100 mL Oral: Yes COMPARISON: CT CT CHEST/ABD/PEL W from 02/01/2022 FINDINGS: CHEST: Tracheobronchial tree: Patent where visualized. Pulmonary parenchyma: There are stable nodules in the right middle and right lower lobes. No new pul monary nodules are present. No architectural distortion. Visualized thyroid gland: Stable thyroid nodules. No follow-up is recommended. Mediastinum and Belén: No dominant adenopathy or fluid collection. The esophagus is unremarkable. Pleura: No effusion or pneumothorax. Heart: The heart is not dilated. No coronary artery calcifications are seen. No pericardial effusion. Pulmonary arteries: No pulmonary emboli are identified. Aorta: Thoracic aorta non-dilated. No evidence of dissection. Lymph nodes: Within normal limits. Soft tissues: Unremarkable. Bones:Within normal limits for the patient's age. ABDOMEN: Liver: Normal density. No measurable mass. Portal, Superior Mesenteric, and Splenic Veins: Unremarkable. Gallbladder and Biliary Tract: Status post cholecystectomy. Stable mild dilatation of the intrahepat ic bile ducts. Pancreas: There is again seen resection of the head of the pancreas. There is persistent dilatation of the pancreatic duct. Spleen: Normal. Adrenals: No masses seen. Kidneys: Normal size, contour and axis. No radiodense stones or obstructive uropathy. No masses seen. Abdominal Aorta: Abdominal portion non-dilated. Bowel: No obstruction or bowel wall thickening. Appendix is unremarkable. There is a large amount of stool in the colon which may represent constipation. Peritoneal Cavity: No ascites, collection or mesenteric inflammatory response. No free air. Lymph Nodes: Within normal limits. Bones: Within normal limits for the patient's age. Soft Tissues: Unremarkable. PELVIS: Bladder: Symmetric distention, no gross wall thickening. Reproductive Organs: Unremarkable as visualized. There again seen prominent para medial vessels which may represent pelvic congestion syndrome. Lymph Nodes: Within normal limits. Bones: Within normal limits. IMPRESSION: 1. Stable appearance of the lungs with stable nodules in the right middle and right lower lobes. 2. Postsurgical changes in the abdomen which appears stable. 3. No evidence of abdominal or pelvic metastatic disease, residual or recurrent mass. RADIATION DOSE DELIVERED: 976.93mGy.cm Total DLP DATA REPOSITORY: All CT scans at this facility are submitted to the National Radiology Data Registry (NRDR) Dose Index Registry (DIR) with the [employer] (ACR). RADIATION OPTIMIZATION: All CT scans at this facility use at least one of these dose optimization te chniques: automated exposure control; mA and/or kV adjustment per patient size (includes targeted exa ms where dose is matched to clinical indication); or iterative reconstruction.
[2022-08-16] MEDS: Omnipaque 350 MG/ML 50 ML BTL PO (08:19)
[2022-08-16 08:37] LABS: Abs Immature Grans 0.01 10^3/uL (0.0-0.06); Absolute Basophil Count 0.02 10^3/uL (0.0-0.2); Absolute Eosinophil Count 0.04 10^3/uL (0.0-0.7); Absolute Lymphocyte Count 1.29 10^3/uL (1.2-3.4); Absolute Monocyte Count 0.26 10^3/uL (0.1-0.8); Absolute Neutrophil Count 3.48 10^3/uL (1.2-6.7); Basophils % 0.4; Eosinophils % 0.8; HCT 41.9 % (36.0-46.0); HGB 14.1 g/dL (11.2-15.7); Immature Grans % 0.2; Lymphocytes % 25.3; MCH 32.4 pg (27.0-33.0); MCHC 33.7 % (32.0-36.0); MCV 96 fL (80-95); MPV 9.7 fL (8.0-11.0); Monocytes % 5.1; Neutrophils % 68.2; Platelet Count 220 10^3/uL (130-400); RBC 4.35 10^6/uL (3.93-5.22); RDW 13.4 % (11.7-14.6); RDW-SD 48.5 fL
[2022-08-16 08:52] LABS: ALT 45 U/L (14-59); AST 26 U/L (15-37); Alkaline Phosphatase 55 U/L (46-116); Anion Gap 7.3 mmol/L (3-11); BUN 13 mg/dL (7-18); Bilirubin, Total 0.6 mg/dL (0.2-1.0); CO2 31.7 mmol/L (21.0-32.0); CREATININE 0.7 mg/dL (0.55-1.02); Calcium 8.9 mg/dL (8.5-10.1); Chloride 105 mmol/L (98-107); Estimated GFR 98.95 (mL/min/1.73m2); Glucose 97 mg/dL (74-106); Potassium 3.9 mmol/L (3.5-5.1); Sodium 144 mmol/L (136-145); Total Protein 6.8 g/dL (6.4-8.2)
[2022-08-16] MEDS: Normal Saline - Diluent 50 ML VIAL IJ (10:07)
[2022-08-16] MEDS: Omnipaque 350 MG/ML 500 ML BTL-Imaging package 100 ML IJ (10:07)
== END 2022-08-16 00:56 ==
LOC: DI 00:36
PROVIDERS: PCP Family Medicine; Visit Provider Internal Medicine Hematology & Oncology
DX: C49.A3 Gastrointestinal stromal tumor of small intestine (principal)
CPT/HCPCS: 74177; 80053; 71260; 85025; Q9967

== ENCOUNTER 2022-10-18 00:06 | Outpatient (CLI) | payer MEDICAID, SELFPAY ==
--- NOTE | 2022-10-18 12:00 | DI.MAMMO_ITS ---
Exam(s) MAMMO SCREENING EXAM: MAMMO SCREENING CLINICAL HISTORY: screening TECHNIQUE: Bilateral full field digital CC and MLO mammographic images were obtained with 3D tomosyn thesis and utilizing computer aided detection (CAD). COMPARISON: Available for comparison. FINDINGS: Masses/Architectural Distortion: None seen. Microcalcifications: No suspicious pleomorphic-type are seen. Skin Thickening/Nipple Retraction: None. IMPRESSION: 1. No significant interval change with no specific features of malignancy noted. 2. Unless there is more urgent need, screening mammography is recommended, as per [employer] guidelines. BI-RADS Category 1 - Negative Breast Density - Category C - Heterogeneously dense Breast density category C or D implies that the patient has dense breast tissue. Dense breast tissue is very common and is not abnormal but dense breast tissue can make it harder to find cancer on a ma mmogram. Also, dense breast tissue may increase their breast cancer risk. This information about the result of the mammogram report was provided to the patient to raise their awareness. Use this report when you speak with the patient about their risks for breast cancer, which includes their family hist ory. At that time, you may recommend for more screening tests (Ultrasound or MRI) as they might be us eful based on their risk. A negative radiographic report should not delay biopsy if a dominant or clinically suspicious mass is present. Up to ten percent of cancers are not identified on mammography. A negative report may reinforce clinical impression. Adenosis and dense breasts may obscure an underlying neoplasm. False positive reports average 6 to 10%. Patient will receive a letter notifying them of these results.
== END 2022-10-18 00:26 ==
LOC: DI 00:06
PROVIDERS: PCP Family Medicine; Visit Provider Obstetrics & Gynecology Gynecology
DX: Z12.31 Encounter for screening mammogram for malignant neoplasm of breast (principal)
CPT/HCPCS: 77063; 77067

== ENCOUNTER 2022-12-04 03:37 | Outpatient (CLI) | payer MEDICAID, SELFPAY ==
[2022-12-04 13:24] LABS: Abs Immature Grans 0.01 10^3/uL (0.0-0.06); Absolute Basophil Count 0.01 10^3/uL (0.0-0.2); Absolute Eosinophil Count 0.06 10^3/uL (0.0-0.7); Absolute Lymphocyte Count 1.35 10^3/uL (1.2-3.4); Absolute Monocyte Count 0.32 10^3/uL (0.1-0.8); Absolute Neutrophil Count 3.51 10^3/uL (1.2-6.7); Basophils % 0.2; Eosinophils % 1.1; HCT 35.4 % (36.0-46.0); HGB 11.9 g/dL (11.2-15.7); Immature Grans % 0.2; Lymphocytes % 25.7; MCH 32.3 pg (27.0-33.0); MCHC 33.6 % (32.0-36.0); MCV 96 fL (80-95); MPV 9.8 fL (8.0-11.0); Monocytes % 6.1; Neutrophils % 66.7; Platelet Count 191 10^3/uL (130-400); RBC 3.68 10^6/uL (3.93-5.22); RDW 13.4 % (11.7-14.6); RDW-SD 48.1 fL; WBC 5.26 10^3/uL (4.4-10.8)
[2022-12-04 13:52] LABS: ALT 50 U/L (14-59); AST 34 U/L (15-37); Albumin 3.7 g/dL (3.4-5.0); Alkaline Phosphatase 56 U/L (46-116); Anion Gap 6.7 mmol/L (3-11); BUN 14 mg/dL (7-18); Bilirubin, Total 0.3 mg/dL (0.2-1.0); CO2 29.3 mmol/L (21.0-32.0); CREATININE 0.6 mg/dL (0.55-1.02); Calcium 8.6 mg/dL (8.5-10.1); Chloride 106 mmol/L (98-107); Estimated GFR 102.69 (mL/min/1.73m2); Glucose 114 mg/dL (74-106); Potassium 3.8 mmol/L (3.5-5.1); Sodium 142 mmol/L (136-145); Total Protein 6.5 g/dL (6.4-8.2)
[2022-12-04 15:32] LABS: Vitamin D 25 Total 29.6 ng/mL (30-100)
== END 2022-12-04 03:38 | disposition home or self-care (01) ==
PROVIDERS: PCP Family Medicine; Visit Provider Nurse Practitioner Family
DX: E55.9 Vitamin D deficiency, unspecified (principal); C49.A3 Gastrointestinal stromal tumor of small intestine
CPT/HCPCS: 36415; 80053; 82306; 85025

== ENCOUNTER 2023-02-10 15:52 | Outpatient (REF) | payer MEDICAID, SELFPAY ==
[2023-02-10 22:32] LABS: Abs Immature Grans 0.13 10^3/uL (0.0-0.06); Absolute Basophil Count 0.03 10^3/uL (0.0-0.2); Absolute Monocyte Count 0.81 10^3/uL (0.1-0.8); Basophils % 0.2; HCT 37.9 % (36.0-46.0); HGB 12.7 g/dL (11.2-15.7); Immature Grans % 0.8; Lymphocytes % 1.8; MCH 32.4 pg (27.0-33.0); MCHC 33.5 % (32.0-36.0); MCV 97 fL (80-95); Monocytes % 5.1; Neutrophils % 92.1; Platelet Count 174 10^3/uL (130-400); RBC 3.92 10^6/uL (3.93-5.22); RDW 14.3 % (11.7-14.6); RDW-SD 50.3 fL; WBC 15.93 10^3/uL (4.4-10.8)
[2023-02-10 22:35] LABS: Absolute Lymphocyte Count 0.29 10^3/uL (1.2-3.4); Absolute Neutrophil Count 14.67 10^3/uL (1.2-6.7)
[2023-02-10 23:02] LABS: ALT 74 U/L (14-59); AST 79 U/L (15-37); Albumin 3.9 g/dL (3.4-5.0); Alkaline Phosphatase 74 U/L (46-116); Anion Gap 10.5 mmol/L (3-11); BUN 15 mg/dL (7-18); Bilirubin, Total 1.1 mg/dL (0.2-1.0); CO2 25.5 mmol/L (21.0-32.0); CREATININE 0.7 mg/dL (0.55-1.02); Calcium 9.1 mg/dL (8.5-10.1); Chloride 102 mmol/L (98-107); Estimated GFR 98.95 (mL/min/1.73m2); Glucose 166 mg/dL (74-106); Potassium 3.4 mmol/L (3.5-5.1); Sodium 138 mmol/L (136-145); Total Protein 6.7 g/dL (6.4-8.2)
== END 2023-02-10 15:53 | disposition home or self-care (01) ==
LOC: LBN 15:52
PROVIDERS: PCP Family Medicine; Visit Provider Nurse Practitioner Family
DX: R11.2 Nausea with vomiting, unspecified (principal)
CPT/HCPCS: 80053; 85025

== ENCOUNTER 2023-02-12 13:24 | Outpatient (REF) | payer MEDICAID, SELFPAY ==
[2023-02-12 15:39] LABS: C Diff PCR Negative (Negative)
[2023-02-13 10:57] LABS: Campylobacter PCR Negative (Negative); Salmonella PCR Negative (Negative); Shiga Toxin PCR Negative (Negative); Shigella/Enteroinvasive Ecoli Negative (Negative)
== END 2023-02-12 13:25 | disposition home or self-care (01) ==
LOC: LBN 13:24
PROVIDERS: PCP Family Medicine; Visit Provider Nurse Practitioner Family
DX: R11.2 Nausea with vomiting, unspecified (principal)
CPT/HCPCS: 87329; 87493; 87505; 87177

== ENCOUNTER 2023-02-28 00:47 | Outpatient (CLI) | payer MEDICAID, SELFPAY ==
[2023-02-28 07:34] LABS: Abs Immature Grans 0.01 10^3/uL (0.0-0.06); Absolute Basophil Count 0.02 10^3/uL (0.0-0.2); Absolute Eosinophil Count 0.03 10^3/uL (0.0-0.7); Absolute Lymphocyte Count 1.41 10^3/uL (1.2-3.4); Absolute Monocyte Count 0.28 10^3/uL (0.1-0.8); Absolute Neutrophil Count 2.44 10^3/uL (1.2-6.7); Basophils % 0.5; Eosinophils % 0.7; HCT 35.2 % (36.0-46.0); HGB 12.1 g/dL (11.2-15.7); Immature Grans % 0.2; Lymphocytes % 33.7; MCHC 34.4 % (32.0-36.0); MCV 96 fL (80-95); MPV 9.7 fL (8.0-11.0); Monocytes % 6.7; Neutrophils % 58.2; Platelet Count 324 10^3/uL (130-400); RBC 3.67 10^6/uL (3.93-5.22); RDW 13.9 % (11.7-14.6); RDW-SD 49.6 fL; WBC 4.19 10^3/uL (4.4-10.8)
[2023-02-28 07:57] LABS: ALT 37 U/L (14-59); AST 25 U/L (15-37); Albumin 3.4 g/dL (3.4-5.0); Alkaline Phosphatase 78 U/L (46-116); Anion Gap 9.3 mmol/L (3-11); BUN 10 mg/dL (7-18); Bilirubin, Total 0.4 mg/dL (0.2-1.0); CO2 28.7 mmol/L (21.0-32.0); CREATININE 0.7 mg/dL (0.55-1.02); Calcium 9.1 mg/dL (8.5-10.1); Chloride 107 mmol/L (98-107); Estimated GFR 98.95 (mL/min/1.73m2); Glucose 98 mg/dL (74-106); Sodium 145 mmol/L (136-145); Total Protein 6.4 g/dL (6.4-8.2)
[2023-02-28 08:18] LABS: Vitamin D 25 Total 43.5 ng/mL (30-100)
[2023-02-28] MEDS: Omnipaque 350 MG/ML 50 ML BTL PO (08:45)
[2023-02-28] MEDS: Omnipaque 350 MG/ML 100 ML BTL IJ (08:46)
[2023-02-28] MEDS: Normal Saline - Diluent 50 ML VIAL IJ (08:47)
--- NOTE | 2023-02-28 09:00 | DI.CT_ITS ---
Exam(s) CT CHEST/ABD/PEL W EXAM: CT CHEST/ABD/PEL W CLINICAL HISTORY: GASTROINTESTINAL STROMAL TUMOR DUODENUM, C49.A3. TECHNIQUE: Imaging Protocol: Axial computed tomography images with coronal and sagittal reformatted images were created and reviewed CONTRAST MATERIAL: Intravenous: Omnipaque 350 Contrast volume:100 ml Oral: Yes. Oral contrast was also administered for bowel opacification. COMPARISON: CT CT CHEST/ABD/PEL W from 08/16/2022 FINDINGS: CHEST: LUNGS: The previously described small subpleural nodules in the right lung remain unchanged and there are no new nodules in either lung field. No infiltrates. No pleural effusions.. MEDIASTINUM: There is no hilar nor mediastinal adenopathy. Previously described thyroid findings are unchanged. CARDIAC: Heart size is normal. There is no pericardial effusion.Caliber of the thoracic aorta is wit hin normal limits. OSSEOUS: No significant osseous lesions.. ABDOMEN: Again noted is resection of the distal half of the stomach, duodenum, and pancreatic head. No bowel obstruction. There is no ascites. LIVER: There are no focal hepatic lesions nor dilatation of intrahepatic ducts. GALLBLADDER/BILIARY: Gallbladder surgically absent. Biliaryenterostomy again noted. No dilated intr ahepatic ducts evident. PANCREAS: Pancreatic head resection again noted. Pancreatic duct is again noted to be dilated, measu ring 3.5 mm. No pancreatic masses nor pancreatic calcifications evident. There is no regional adeno puja in this region evident. SPLEEN: Spleen is not enlarged. There are no intrasplenic lesions. Splenic and portal veins are browne nt. ADRENALS: There are no significant adrenal masses. KIDNEYS: No calculi nor hydronephrosis. No solid renal masses. No cysts evident. ABDOMINAL AORTA: Abdominal aorta is not enlarged. LYMPH NODES: There is no retroperitoneal nor paraaortic adenopathy. ABDOMINAL WALL: No evidence of significant anterior abdominal wall nor inguinal hernia. GI: Abundant fecal material:. No obvious colitis pattern. No bowel obstruction. PELVIS: There are dilated veins in both adnexal regions again noted. These drain into prominent bilateral go brodie veins. On the left side this drains into the left renal vein. On the right side drains into t he IVC. Neither are thrombosed. Consistent with pelvic congestion syndrome. LYMPH NODES: There is no intrapelvic nor inguinal adenopathy. GI: No evidence of appendicitis.No evidence of sigmoid diverticulitis. URINARY BLADDER: No calculi nor masses evident REPRODUCTIVE: Uterus size age-appropriate. No ovarian masses evident. No free fluid in the pelvis. OSSEOUS: No significant osseous lesions. IMPRESSION: 1. Again noted is partial gastrectomy,pancreatic head resection, cholecystectomy, biliaryenterostomy with no evidence of new mass nor lymphadenopathy nor ascites. No evidence of bowel obstruction, free air, nor abscess. 2. Stable unchanged appearance of 2 small subpleural nodules in the right lung. No evidence of new m etastatic lung nodules nor other pulmonary findings and no pleural effusions nor intrathoracic adenop athy. 3. Pelvic congestion syndrome findings again incidentally noted. Prominent bilateral para-uterine ve ins drain into prominent bilateral gonadal veins (which are not thrombosed). RADIATION DOSE DELIVERED: Total DLP DATA REPOSITORY: All CT scans at this facility are submitted to the National Radiology Data Registry (NRDR) Dose Index Registry (DIR) with the [employer] (ACR). RADIATION OPTIMIZATION: All CT scans at this facility use at least one of these dose optimization te chniques: automated exposure control; mA and/or kV adjustment per patient size (includes targeted exa ms where dose is matched to clinical indication); or iterative reconstruction.
[2023-02-28] MEDS: Normal Saline Flush 10 ML SYR IVP (09:23)
== END 2023-02-28 01:07 ==
LOC: DI 00:47
PROVIDERS: PCP Family Medicine; Visit Provider Nurse Practitioner Family
DX: C49.A3 Gastrointestinal stromal tumor of small intestine (principal)
CPT/HCPCS: 74177; 80053; 82306; 71260; 85025; J3490; Q9967

== ENCOUNTER 2023-02-28 02:08 | Outpatient (CLI) | payer MEDICAID, SELFPAY ==
[2023-02-28 18:12] LABS: Iron 72 ug/dL (50-170); Total Iron Binding Capacity 291 ug/dL (250-450); Transferrin Sat 25 % (15-50)
[2023-02-28 18:26] LABS: Ferritin 112 ng/mL (8-252)
== END 2023-02-28 02:09 | disposition home or self-care (01) ==
LOC: LBO 02:08
PROVIDERS: Internal Medicine Hematology & Oncology; PCP Family Medicine; Visit Provider Nurse Practitioner Family
DX: D64.9 Anemia, unspecified (principal)
CPT/HCPCS: 82728; 83540; 83550

== ENCOUNTER → 2023-05-30 00:02 | Outpatient (CLI) | payer MEDICAID, SELFPAY ==
--- NOTE | 2023-05-30 | DI.CT_ITS ---
Exam(s) CT CHEST/ABD/PEL W EXAM: CT CHEST/ABD/PEL W CLINICAL HISTORY: GIST,MALIGNANT,C49.A3,S/P WHIPPLE AND TREAT,RESTAGING. TECHNIQUE: Imaging Protocol: Axial computed tomography images with coronal and sagittal reformatted images were created and reviewed CONTRAST MATERIAL: Intravenous: Omnipaque 350 Contrast volume:100 ml Oral: yes COMPARISON: CT CT CHEST/ABD/PEL W from 02/28/2023 FINDINGS: CHEST: Tracheobronchial tree: Patent where visualized. Pulmonary parenchyma: No consolidation or dominant measurable mass. Four millimeter right lateral lo wer lobe subpleural nodule. 3 millimeter lateral right middle lobe nodule. No new nodules. Pleura: No effusion or pneumothorax. Lymph nodes: Within normal limits. Aorta: Thoracic portion non-dilated. Heart: No pericardial effusion. Bones: Unremarkable for age. No lytic or blastic lesions.No compression fractures. Soft tissues: Unremarkable. ABDOMEN and PELVIS: Liver: Normal density. No measurable mass. Gallbladder and biliary tract: Status post cholecystectomy and biliary enterostomy. No biliary dilat ation. Pancreas: Resection of pancreatic head. Normal density, no abnormal calcifications or inflammatory p rocess. Stable minimal dilatation of the pancreatic duct. Spleen: Normal. Kidneys: Normal size, contour and axis. No radiodense stones. No obstructive uropathy. No suspicious masses seen. Adrenal glands: No masses seen. Aorta: Abdominal portion non-dilated. Lymph nodes: Within normal limits. Soft tissues: Unremarkable. Bladder: Unremarkable. Bowel: Resection of the distal stomach and duodenum. no obstruction or bowel wall thickening. Large quantity of stool throughout the colon. Appendix is normal. Peritoneal cavity: No ascites. No focal collection. No mesenteric inflammatory response. Bones: Mild levoscoliosis. No suspicious bony lesions. Reproductive organs: Within normal limits. Dilated pelvic veins again noted. No evidence of thromb osis. IMPRESSION: Stable tiny right middle and lower lobe nodules. No new findings. No evidence of metastatic disease in the abdomen or pelvis. Postsurgical changes. RADIATION DOSE DELIVERED: 1,056.46mGy.cm Total DLP DATA REPOSITORY: All CT scans at this facility are submitted to the National Radiology Data Registry (NRDR) Dose Index Registry (DIR) with the [employer] (ACR). RADIATION OPTIMIZATION: All CT scans at this facility use at least one of these dose optimization te chniques: automated exposure control; mA and/or kV adjustment per patient size (includes targeted exa ms where dose is matched to clinical indication); or iterative reconstruction.
[2023-05-30] MEDS: Barium Sulfate 2% W/V-Creamy Vanilla Smoothie 450 ML BTL 900 ML PO (09:00)
[2023-05-30] MEDS: Omnipaque 350 MG/ML 500 ML BTL-Imaging package 100 ML IJ (11:36)
== END ==
PROVIDERS: PCP Family Medicine; Visit Provider Internal Medicine Hematology & Oncology
DX: C49.A3 Gastrointestinal stromal tumor of small intestine (principal); R91.1 Solitary pulmonary nodule
CPT/HCPCS: 74177; 71260

== ENCOUNTER 2023-05-30 01:26 | Outpatient (CLI) | payer MEDICAID, SELFPAY ==
[2023-05-30 08:35] LABS: Abs Immature Grans 0.01 10^3/uL (0.0-0.06); Absolute Basophil Count 0.03 10^3/uL (0.0-0.2); Absolute Eosinophil Count 0.04 10^3/uL (0.0-0.7); Absolute Lymphocyte Count 1.36 10^3/uL (1.2-3.4); Absolute Monocyte Count 0.27 10^3/uL (0.1-0.8); Absolute Neutrophil Count 1.94 10^3/uL (1.2-6.7); Basophils % 0.8; Eosinophils % 1.1; HGB 13.8 g/dL (11.2-15.7); Immature Grans % 0.3; Lymphocytes % 37.3; MCH 31.7 pg (27.0-33.0); MCHC 33.7 % (32.0-36.0); MCV 94 fL (80-95); MPV 10.5 fL (8.0-11.0); Monocytes % 7.4; Neutrophils % 53.1; Platelet Count 234 10^3/uL (130-400); RBC 4.35 10^6/uL (3.93-5.22); RDW 12.7 % (11.7-14.6); WBC 3.65 10^3/uL (4.4-10.8)
[2023-05-30 09:08] LABS: Vitamin D 25 Total 53.4 ng/mL (30-100)
[2023-05-30 09:13] LABS: ALT 30 U/L (14-59); AST 23 U/L (15-37); Albumin 3.7 g/dL (3.4-5.0); Alkaline Phosphatase 53 U/L (46-116); Anion Gap 9.7 mmol/L (3-11); BUN 12 mg/dL (7-18); Bilirubin, Total 0.5 mg/dL (0.2-1.0); CO2 29.3 mmol/L (21.0-32.0); CREATININE 0.6 mg/dL (0.55-1.02); Chloride 104 mmol/L (98-107); Estimated GFR 102.69 (mL/min/1.73m2); Ferritin 44 ng/mL (8-252); Glucose 92 mg/dL (74-106); Potassium 3.9 mmol/L (3.5-5.1); Sodium 143 mmol/L (136-145); Total Protein 6.9 g/dL (6.4-8.2); Vitamin B12 1130 pg/mL (193-986)
[2023-05-30 09:14] LABS: Folate > 20.0 ng/mL (8.6-20.0)
[2023-05-30 09:17] LABS: Iron 105 ug/dL (50-170); Total Iron Binding Capacity 332 ug/dL (250-450); Transferrin Sat 32 % (15-50)
[2023-06-03 21:19] LABS: Vitamin E, Serum 12.6 mg/L (5.5 - 17.0)
[2023-06-04 00:06] LABS: Free Retinol (Vitamin A) 39.1 mcg/dL (32.5-78.0)
[2023-06-04 13:06] LABS: Thiamine (Vitamin B1), WB 125 nmol/L (70-180)
== END 2023-05-30 01:27 | disposition home or self-care (01) ==
LOC: LBO 01:27
PROVIDERS: PCP Family Medicine; Visit Provider Internal Medicine Hematology & Oncology
DX: E56.0 Deficiency of vitamin E (principal)
CPT/HCPCS: 36415; 80053; 82306; 82607; 82728; 82746; 83540; 83550; 84425; 84446; 84590; 85025

== ENCOUNTER → 2023-08-22 00:09 | Outpatient (CLI) | payer MEDICAID, SELFPAY ==
--- NOTE | 2023-08-22 | DI.CT_ITS ---
Exam(s) CT CHEST/ABD/PEL W EXAM: CT CHEST/ABD/PEL W CLINICAL HISTORY: C49.A3 Gastrointestinal stromal tumor of duodenum. TECHNIQUE: Imaging Protocol: Axial computed tomography images with coronal and sagittal reformatted images were created and reviewed CONTRAST MATERIAL: Intravenous: Omnipaque 350 Contrast volume:100 ml Oral: Yes. Oral contrast was also administered for bowel opacification. COMPARISON: CT CT CHEST/ABD/PEL W from 05/30/2023 FINDINGS: CHEST: LUNGS: There are no infiltrates nor pleural effusions. There is a small pleural based 4 millimeter n odule in the lateral basal segment of the right lower lobe which is unchanged. Also unchanged pleura l-based millimeter nodule in the lateral aspect of the right middle lobe. There are no new lung nodu les. MEDIASTINUM: There is no hilar nor mediastinal adenopathy. Visualized thyroid unremarkable. CARDIAC: Heart size is normal. There is no pericardial effusion.Caliber of the thoracic aorta is wit hin normal limits. OSSEOUS: No significant osseous lesions.No fractures.. ABDOMEN: Again noted is evidence of prior resection of the distal half the stomach, duodenum and pancreatic he ad as well as cholecystectomy and biliary enterostomy creation. There are no abnormal fluid collecti ons in the region of this extensive surgery and no abnormal lymphadenopathy. No new abnormal tissue in this area. No mesenteric swirl sign nor thrombosis of mesenteric veins. There is no evidence of bowel obstruction, free air, nor abscess. No ascites. LIVER: There are no focal hepatic lesions nor dilatation of intrahepatic ducts. GALLBLADDER/BILIARY: Gallbladder surgically absent. CBD is not dilated. PANCREAS: Pancreatic head surgically absent. Remainder of the pancreas appears stable. Pancreatic d uct diameter is unchanged, measuring 3.2 mm. No evidence of pancreatic mass, pancreatic calcificatio ns, nor peripancreatic fluid. SPLEEN: Spleen is not enlarged. There are no intrasplenic lesions. Splenic and portal veins are browne nt. ADRENALS: There are no significant adrenal masses. KIDNEYS: No calculi nor hydronephrosis. No solid renal masses. No cysts evident. ABDOMINAL AORTA: Abdominal aorta is not enlarged. LYMPH NODES: There is no retroperitoneal nor paraaortic adenopathy. ABDOMINAL WALL: No evidence of significant anterior abdominal wall nor inguinal hernia. GI: There is no evidence of bowel obstruction.Abundant arterial again noted in the colon. PELVIS: LYMPH NODES: There is no intrapelvic nor inguinal adenopathy. GI: No evidence of appendicitis.No evidence of sigmoid diverticulitis. URINARY BLADDER: Uniform thickening of the urinary bladder noted although the bladder is significantl y less distended than on the prior study. Nevertheless cannot exclude cystitis. REPRODUCTIVE: Retroverted uterus. No ovarian masses. Multiple dilated veins seen in both adnexal re gions which drain into prominent gonadal veins which are not thrombosed. Consistent with pelvic kristen estion syndrome. OSSEOUS: No significant osseous lesions. IMPRESSION: 1. Stable benign-appearing small pleural based right lung nodules. No new ominous pulmonary nodules, infiltrates, pleural effusions, nor intrathoracic adenopathy. 2. Again noted is evidence of prior extensive surgery in the abdomen as described above. There is no evidence of bowel obstruction, normal fluid collections, nor free air. 3. No evidence of metastatic disease in the abdomen and pelvis. 4. Pelvic congestion syndrome again noted. 5. Slightly thickened bladder wall although this may be related to under distension when compared to the prior study. RADIATION DOSE DELIVERED: Total DLP DATA REPOSITORY: All CT scans at this facility are submitted to the National Radiology Data Registry (NRDR) Dose Index Registry (DIR) with the [employer] (ACR). RADIATION OPTIMIZATION: All CT scans at this facility use at least one of these dose optimization te chniques: automated exposure control; mA and/or kV adjustment per patient size (includes targeted exa ms where dose is matched to clinical indication); or iterative reconstruction.
[2023-08-22] MEDS: Barium Sulfate 2% W/V-Berry Smoothie 450 ML BTL PO (08:57)
[2023-08-22] MEDS: Barium Sulfate 2% W/V-Creamy Vanilla Smoothie 450 ML BTL PO (08:58)
[2023-08-22 09:01] LABS: Abs Immature Grans 0.01 10^3/uL (0.0-0.06); Absolute Basophil Count 0.01 10^3/uL (0.0-0.2); Absolute Eosinophil Count 0.02 10^3/uL (0.0-0.7); Absolute Lymphocyte Count 1.26 10^3/uL (1.2-3.4); Absolute Monocyte Count 0.22 10^3/uL (0.1-0.8); Absolute Neutrophil Count 1.59 10^3/uL (1.2-6.7); Basophils % 0.3; Eosinophils % 0.6; HCT 39.9 % (36.0-46.0); HGB 13.3 g/dL (11.2-15.7); Immature Grans % 0.3; Lymphocytes % 40.5; MCH 31.1 pg (27.0-33.0); MCHC 33.3 % (32.0-36.0); MCV 93 fL (80-95); Monocytes % 7.1; Neutrophils % 51.2; Platelet Count 208 10^3/uL (130-400); RBC 4.28 10^6/uL (3.93-5.22); RDW 13.6 % (11.7-14.6); RDW-SD 46.6 fL; WBC 3.11 10^3/uL (4.4-10.8)
[2023-08-22 09:59] LABS: ALT 37 U/L (14-59); AST 24 U/L (15-37); Albumin 3.7 g/dL (3.4-5.0); Alkaline Phosphatase 59 U/L (46-116); Anion Gap 9.1 mmol/L (3-11); BUN 13 mg/dL (7-18); Bilirubin, Total 0.7 mg/dL (0.2-1.0); CO2 28.9 mmol/L (21.0-32.0); CREATININE 0.6 mg/dL (0.55-1.02); Calcium 8.9 mg/dL (8.5-10.1); Chloride 108 mmol/L (98-107); Estimated GFR 102.06 (mL/min/1.73m2); Glucose 92 mg/dL (74-106); Potassium 4.1 mmol/L (3.5-5.1); Sodium 146 mmol/L (136-145); Total Protein 6.6 g/dL (6.4-8.2); Vitamin B12 884 pg/mL (193-986)
[2023-08-22 10:00] LABS: Folate > 20.0 ng/mL (8.6-20.0); Vitamin D 25 Total 49.6 ng/mL (30-100)
[2023-08-22] MEDS: Normal Saline - Diluent 50 ML VIAL IJ (10:27)
[2023-08-22] MEDS: Omnipaque 350 MG/ML 500 ML BTL-Imaging package 100 ML IJ (10:27)
== END ==
PROVIDERS: PCP Family Medicine; Visit Provider Nurse Practitioner Family
DX: C49.A3 Gastrointestinal stromal tumor of small intestine (principal)
CPT/HCPCS: 74177; 80053; 82306; 71260; 82607; 82746; 85025

== ENCOUNTER 2023-11-07 15:42 | Outpatient (REF) | payer MEDICAID, SELFPAY ==
--- NOTE | 2023-11-07 14:15 | PAPFT_PTH ---
PATIENT: Mary Kay Padgett LOC: [facility] U#:[id number] AGE/SX: 63/F ROOM: RE11/07/[address]: Arabella Watts : 1960 BED: DIS: 11/07/2023 SPEC #: [id number] RECD: 11/07/23 18:07 STATUS: MIREYA REJose Miguel #: [id number] YOMAIRA: 11/07/23 14:[address]: Arabella Watts DEPT: [facility] Cytology RECD BY: Leti Ventura ENTERED: 11/07/23 18:07 SP TYPE: PAPFT OTHR DR: Irving Wheeler Tissues: 1 - CX/ENDOCX FOR PAP SMEARS Procedures: PAP THIN PREP/[facility] Screening HPV DNA PROBE Comments: [id number] (HPV 16 & 18/45)
== END 2023-11-07 15:43 | disposition home or self-care (01) ==
LOC: LBN 15:42
PROVIDERS: PCP Family Medicine; Visit Provider Obstetrics & Gynecology Gynecology
DX: Z12.4 Encounter for screening for malignant neoplasm of cervix (principal); Z11.51 Encounter for screening for human papillomavirus (HPV)
CPT/HCPCS: 88142; 87624

== ENCOUNTER → 2023-11-14 01:57 | Outpatient (CLI) | payer MEDICAID, SELFPAY ==
--- NOTE | 2023-11-14 15:15 | DI.MAMMO_ITS ---
Exam(s) MAMMO SCREENING EXAM: MAMMO SCREENING CLINICAL HISTORY: screening. TECHNIQUE: Bilateral full field digital CC and MLO mammographic images were obtained with 3D tomosyn thesis and utilizing computer aided detection (CAD). COMPARISON: Prior mammograms were reviewed. FINDINGS: There has been no significant change in the appearance and distribution of the fibroglandular tissue. There are no CAD designations. There are no new spiculated masses nor malignant appearing microcalcification groups. There is no significant architectural distortion nor skin thickening-retraction. IMPRESSION: No radiographic evidence of malignancy. BI-RADS Category 1 - Negative Breast Density - Category C - Heterogeneously dense Breast density Category C or D implies that the patient has dense breast tissue. Dense breast tissue can make it harder to find cancer on a mammogram. Dense breast tissue is also associated with an incr eased risk of breast cancer. This information about the result of the mammogram report was provided to the patient to raise their awareness. Use this report when you speak with the patient about their risks for breast cancer, which includes their family history. At that time, you may recommend additional screening tests (Ultrasoun d or MRI) as these tests may add significant information. A negative radiographic report should not delay biopsy if a dominant or clinically suspicious mass is present. Up to ten percent of cancers are not identified on mammography. A negative report may reinforce clinical impression. Adenosis and dense breasts may obscure an underlying neoplasm. False positive reports average 6 to 10%. Patient will receive a letter notifying them of these results.
== END ==
PROVIDERS: PCP Family Medicine; Visit Provider Obstetrics & Gynecology Gynecology
DX: Z12.39 Encounter for other screening for malignant neoplasm of breast (principal)
CPT/HCPCS: 77063; 77067

== ENCOUNTER 2023-11-19 02:28 | Outpatient (CLI) | payer MEDICAID, SELFPAY ==
[2023-11-19 08:58] LABS: Abs Immature Grans 0.01 10^3/uL (0.0-0.06); Absolute Basophil Count 0.03 10^3/uL (0.0-0.2); Absolute Eosinophil Count 0.03 10^3/uL (0.0-0.7); Absolute Neutrophil Count 2.32 10^3/uL (1.2-6.7); Basophils % 0.7 %; Eosinophils % 0.7 %; HCT 40.3 % (36.0-46.0); HGB 13.6 g/dL (11.2-15.7); Immature Grans % 0.2 %; Lymphocytes % 38.7 %; MCH 31.5 pg (27.0-33.0); MCHC 33.7 % (32.0-36.0); MCV 93 fL (80-95); MPV 10.1 fL (8.0-11.0); Monocytes % 6.8 %; Neutrophils % 52.9 %; Platelet Count 223 10^3/uL (130-400); RBC 4.32 10^6/uL (3.93-5.22); RDW-SD 44.8 fL; WBC 4.39 10^3/uL (4.4-10.8)
[2023-11-19 09:50] LABS: ALT 30 U/L (14-59); AST 23 U/L (15-37); Albumin 3.7 g/dL (3.4-5.0); Alkaline Phosphatase 66 U/L (46-116); Anion Gap 8.1 mmol/L (3-11); BUN 10 mg/dL (7-18); Bilirubin, Total 0.51 mg/dL (0.2-1.0); CO2 28.9 mmol/L (21.0-32.0); CREATININE 0.5 mg/dL (0.55-1.02); Chloride 106 mmol/L (98-107); Estimated GFR 106.64 (mL/min/1.73m2); Glucose 102 mg/dL (74-106); Potassium 4.4 mmol/L (3.5-5.1); Sodium 143 mmol/L (136-145); Total Protein 6.7 g/dL (6.4-8.2); Vitamin D 25 Total 55.2 ng/mL (30-100)
== END 2023-11-19 02:29 | disposition home or self-care (01) ==
PROVIDERS: PCP Family Medicine; Visit Provider Nurse Practitioner Family
DX: E55.9 Vitamin D deficiency, unspecified (principal); C49.A3 Gastrointestinal stromal tumor of small intestine
CPT/HCPCS: 36415; 80053; 82306; 85025

== ENCOUNTER 2024-02-13 00:41 | Outpatient (CLI) | payer MEDICAID, SELFPAY ==
--- NOTE | 2024-02-13 | DI.CT_ITS ---
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 TECHNIQUE: Imaging Protocol: Axial computed tomography images with coronal and sagittal reformatted images were created and reviewed CONTRAST MATERIAL: Intravenous: Omnipaque 350 Contrast volume:100 ml Oral: yes / COMPARISON: CT CT CHEST/ABD/PEL W from 08/22/2023 FINDINGS: CHEST: Tracheobronchial tree: Patent. Pulmonary parenchyma: No consolidation or dominant measurable mass. Stable tiny nodules in the right middle and lower lobes. Pleura: No effusion or pneumothorax. Mediastinum: Within normal limits. Aorta: Thoracic portion non-dilated. Pulmonary arteries: No visible emboli. Heart: No pericardial effusion. Bones: Unremarkable for age. No lytic or blastic lesions.No compression fractures. Soft tissues: Unremarkable. ABDOMEN and PELVIS: Liver: Normal density. No measurable mass. Gallbladder and biliary tract: Cholecystectomy and biliary enterostomy. No biliary dilatation. Pancreas: Resection of pancreatic head. Remains of the pancreas is unchanged in appearance. Spleen: Normal. Kidneys: Normal size, contour and axis. No radiodense stones. No obstructive uropathy. No suspicious masses seen. Adrenal glands: No masses seen. Aorta: Abdominal portion non-dilated. Lymph nodes: Within normal limits. Soft tissues: Unremarkable. Bowel: Resection distal stomach and duodenum. No obstruction or bowel wall thickening. Large quantit y of fecal material. Appendix normal. Peritoneal cavity: No ascites. No focal collection. No mesenteric inflammatory response. No free ai r. Bones: Unremarkable for age. Reproductive organs: Retroverted uterus. Dilated pelvic veins again noted. Bladder: Unremarkable. IMPRESSION: Status post Whipple procedure. No evidence of metastatic disease in the chest, abdomen or pelvis. Large quantity of stool incidentally noted. RADIATION DOSE DELIVERED: 214.4mGy.cm Total DLP DATA REPOSITORY: All CT scans at this facility are submitted to the National Radiology Data Registry (NRDR) Dose Index Registry (DIR) with the [employer] ([employer]). RADIATION OPTIMIZATION: All CT scans at this facility use at least one of these dose optimization te chniques: automated exposure control; mA and/or kV adjustment per patient size (includes targeted exa ms where dose is matched to clinical indication); or iterative reconstruction.
[2024-02-13] MEDS: Barium Sulfate 2% W/V-Berry Smoothie 450 ML BTL PO ×2 (08:11→08:12)
[2024-02-13 08:55] LABS: Abs Immature Grans 0.01 10^3/uL (0.0-0.06); Absolute Basophil Count 0.03 10^3/uL (0.0-0.2); Absolute Eosinophil Count 0.05 10^3/uL (0.0-0.7); Absolute Lymphocyte Count 1.61 10^3/uL (1.2-3.4); Absolute Monocyte Count 0.29 10^3/uL (0.1-0.8); Basophils % 0.8 %; Eosinophils % 1.3 %; HCT 40.2 % (36.0-46.0); HGB 13.3 g/dL (11.2-15.7); Immature Grans % 0.3 %; Lymphocytes % 40.3 %; MCH 31.1 pg (27.0-33.0); MCHC 33.1 % (32.0-36.0); MCV 94 fL (80-95); MPV 10.2 fL (8.0-11.0); Monocytes % 7.3 %; Platelet Count 214 10^3/uL (130-400); RBC 4.27 10^6/uL (3.93-5.22); RDW 13.4 % (11.7-14.6); RDW-SD 46.7 fL
[2024-02-13 09:25] LABS: ALT 24 U/L (14-59); AST 21 U/L (15-37); Albumin 3.7 g/dL (3.4-5.0); Alkaline Phosphatase 67 U/L (46-116); Anion Gap 6.6 mmol/L (3-11); BUN 14 mg/dL (7-18); Bilirubin, Total 0.61 mg/dL (0.2-1.0); CO2 29.4 mmol/L (21.0-32.0); CREATININE 0.6 mg/dL (0.55-1.02); Calcium 8.9 mg/dL (8.5-10.1); Chloride 107 mmol/L (98-107); Estimated GFR 102.06 (mL/min/1.73m2); Glucose 83 mg/dL (74-106); Potassium 3.8 mmol/L (3.5-5.1); Sodium 143 mmol/L (136-145); Total Protein 6.8 g/dL (6.4-8.2)
[2024-02-13] MEDS: Normal Saline - Diluent 50 ML VIAL IJ (10:04)
[2024-02-13] MEDS: Omnipaque 350 MG/ML 100 ML BTL IJ (10:04)
== END 2024-02-13 01:01 ==
LOC: DI 00:42
PROVIDERS: PCP Family Medicine; Visit Provider Nurse Practitioner Family
DX: C49.A3 Gastrointestinal stromal tumor of small intestine (principal)
CPT/HCPCS: 74177; 80053; 71260; 85025; J3490

== ENCOUNTER 2024-06-18 00:15 | Outpatient (CLI) | payer MEDICAID, SELFPAY ==
--- NOTE | 2024-06-18 | DI.CT_ITS ---
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 Lung Computer Aided Detection (CAD) was utilized. CONTRAST MATERIAL: Intravenous: Omnipaque 350 contrast volume:100 mL Oral: Yes COMPARISON: CT CT ABD AND PELVIS WITH CONTRAS from 11/22/[address] CHEST/ABD/PEL W from 08/16/[address] CHEST/ABD/PEL W from 08/22/[address] CHEST/ABD/PEL W from 02/13/2024 FINDINGS: CHEST: Tracheobronchial tree: Patent where visualized. No evidence of bronchiectasis. Pulmonary parenchyma: There are stable nodules again seen. The largest measures 5 mm and is at the p eriphery of the right lower lobe (series 11, image 123). This is been stable dating back to the st examination on file at this institution which was on 11/22/2019. No new pulmonary nodules are pres ent. No architectural distortion. No focal consolidation. Visualized thyroid gland: The thyroid gland is heterogeneous. There are stable hypodensities present . The largest measures 5 mm. No follow-up is recommended. Mediastinum and [place]: No dominant adenopathy or fluid collection. The esophagus is unremarkable. Pleura: No effusion or pneumothorax. Heart: The heart is not dilated. No coronary artery calcifications are seen. No pericardial effusion. Pulmonary arteries: No pulmonary emboli are identified. Aorta: Thoracic aorta non-dilated. There is no evidence of dissection. Minimal atherosclerotic calci fication is present. Lymph nodes: Within normal limits. Soft tissues: Unremarkable. Bones:Within normal limits for the patient's age. ABDOMEN: Liver: Normal density. There is a new hypodense poorly enhancing mass in the periphery of the liver ( series 23, image 31). It measures 1.7 x 1.5 cm. There is also a mass seen on the arterial images in the posterior right lobe of the liver (series 11, image 167). Is hyperdense on the arterial images. It remains slightly hyperdense to the hepatic parenchyma on the venous images. This may represent a hemangioma. Portal, Superior Mesenteric, and Splenic Veins: Unremarkable. Gallbladder and Biliary Tract: The patient is status post Whipple's procedure. There is no biliary d uctal dilatation. Pancreas: The remainder of the pancreas appears grossly unremarkable. No evidence of a pancreatic ma ss or peripancreatic fluid collection. Spleen: Normal. Adrenals: No masses seen. Kidneys: Normal size, contour and axis. There is a renal stone in the lower pole of the right kidney. There is no evidence of hydronephrosis. No masses seen. Abdominal Aorta: Abdominal portion non-dilated. Bowel: No obstruction or bowel wall thickening. There is a large amount of stool throughout the colon consistent with constipation. There is a normal appendix visualized. Peritoneal Cavity: No ascites, collection or mesenteric inflammatory response. No free air. Lymph Nodes: Within normal limits. Bones: Within normal limits for the patient's age. Soft Tissues: Unremarkable. PELVIS: Bladder: Symmetric distention, no gross wall thickening. Reproductive Organs: Unremarkable as visualized. Lymph Nodes: Within normal limits. Bones: Within normal limits. IMPRESSION: 1. No evidence of thoracic metastatic disease. 2. Stable peripheral pulmonary nodules. 3. New 1.7 x 1.5 cm mass in the periphery of the liver. Metastasis should be considered. MRI of the liver may be obtained for further evaluation. 4. Hyperdense lesion in the posterior aspect of the right lobe of the liver which may represent a hem angioma. 5. Status post Whipple's procedure. RADIATION DOSE DELIVERED: 444.2mGy.cm Total DLP DATA REPOSITORY: All CT scans at this facility are submitted to the National Radiology Data Registry (NRDR) Dose Index Registry (DIR) with the [employer] (ACR). RADIATION OPTIMIZATION: All CT scans at this facility use at least one of these dose optimization te chniques: automated exposure control; mA and/or kV adjustment per patient size (includes targeted exa ms where dose is matched to clinical indication); or iterative reconstruction.
[2024-06-18] MEDS: Barium Sulfate 2% W/V-Berry Smoothie 450 ML BTL PO ×2 (13:35→13:36)
[2024-06-18 13:37] LABS: Absolute Basophil Count 0.01 10^3/uL (0.0-0.2); Absolute Eosinophil Count 0.02 10^3/uL (0.0-0.7); Absolute Lymphocyte Count 1.94 10^3/uL (1.2-3.4); Absolute Monocyte Count 0.28 10^3/uL (0.1-0.8); Absolute Neutrophil Count 2.91 10^3/uL (1.2-6.7); Basophils % 0.2 %; Eosinophils % 0.4 %; HCT 37.3 % (36.0-46.0); HGB 12.6 g/dL (11.2-15.7); Lymphocytes % 37.6 %; MCH 31.3 pg (27.0-33.0); MCHC 33.8 % (32.0-36.0); MCV 93 fL (80-95); MPV 10.1 fL (8.0-11.0); Monocytes % 5.4 %; Neutrophils % 56.4 %; Platelet Count 220 10^3/uL (130-400); RBC 4.03 10^6/uL (3.93-5.22); RDW 13.5 % (11.7-14.6); RDW-SD 46.5 fL; WBC 5.16 10^3/uL (4.4-10.8)
[2024-06-18 13:50] LABS: ALT 26 U/L (14-59); AST 22 U/L (15-37); Albumin 3.8 g/dL (3.4-5.0); Alkaline Phosphatase 68 U/L (46-116); Anion Gap 5.4 mmol/L (3-11); BUN 9 mg/dL (7-18); Bilirubin, Total 0.45 mg/dL (0.2-1.0); CO2 30.6 mmol/L (21.0-32.0); CREATININE 0.5 mg/dL (0.55-1.02); Calcium 9.1 mg/dL (8.5-10.1); Chloride 108 mmol/L (98-107); Estimated GFR 106.64 (mL/min/1.73m2); Glucose 91 mg/dL (74-106); Potassium 3.8 mmol/L (3.5-5.1); Sodium 144 mmol/L (136-145); Total Protein 6.7 g/dL (6.4-8.2)
[2024-06-18] MEDS: Normal Saline - Diluent 50 ML VIAL IJ (15:27)
[2024-06-18] MEDS: Omnipaque 350 MG/ML 100 ML BTL IJ (15:28)
== END 2024-06-18 00:35 ==
LOC: DI 00:16
PROVIDERS: PCP Family Medicine; Visit Provider Internal Medicine Hematology & Oncology
DX: C49.A3 Gastrointestinal stromal tumor of small intestine (principal); R93.2 Abnormal findings on diagnostic imaging of liver and biliary tract
CPT/HCPCS: 74177; 80053; 71260; 85025; J3490

== ENCOUNTER 2024-09-16 01:54 | Outpatient (CLI) | payer MEDICAID, SELFPAY ==
[2024-09-16 08:42] LABS: Absolute Basophil Count 0.03 10^3/uL (0.0-0.2); Absolute Eosinophil Count 0.15 10^3/uL (0.0-0.7); Absolute Lymphocyte Count 2.08 10^3/uL (1.2-3.4); Absolute Monocyte Count 0.31 10^3/uL (0.1-0.8); Absolute Neutrophil Count 1.88 10^3/uL (1.2-6.7); Basophils % 0.7 %; Eosinophils % 3.4 %; HCT 39.9 % (36.0-46.0); HGB 13.6 g/dL (11.2-15.7); Lymphocytes % 46.7 %; MCH 31.1 pg (27.0-33.0); MCHC 34.1 % (32.0-36.0); MCV 91 fL (80-95); MPV 9.7 fL (8.0-11.0); Neutrophils % 42.2 %; Platelet Count 213 10^3/uL (130-400); RBC 4.37 10^6/uL (3.93-5.22); RDW 13.2 % (11.7-14.6); RDW-SD 44.2 fL; WBC 4.45 10^3/uL (4.4-10.8)
[2024-09-16 08:58] LABS: ALT 25 U/L (14-59); AST 19 U/L (15-37); Albumin 3.9 g/dL (3.4-5.0); Alkaline Phosphatase 76 U/L (46-116); BUN 10 mg/dL (7-18); Bilirubin, Total 0.6 mg/dL (0.2-1.0); CREATININE 0.6 mg/dL (0.55-1.02); Calcium 9.4 mg/dL (8.5-10.1); Chloride 104 mmol/L (98-107); Estimated GFR 101.42 (mL/min/1.73m2); Glucose 106 mg/dL (74-106); Potassium 3.9 mmol/L (3.5-5.1); Sodium 142 mmol/L (136-145); Total Protein 7.3 g/dL (6.4-8.2)
== END 2024-09-16 01:55 | disposition home or self-care (01) ==
LOC: LBO 01:54
PROVIDERS: PCP Family Medicine; Visit Provider Internal Medicine Hematology & Oncology
DX: C49.A3 Gastrointestinal stromal tumor of small intestine (principal)
CPT/HCPCS: 36415; 80053; 85025

== ENCOUNTER 2024-10-14 03:37 | Outpatient (CLI) | payer MEDICAID, SELFPAY ==
[2024-10-14 08:24] LABS: Absolute Basophil Count 0.03 10^3/uL (0.0-0.2); Absolute Eosinophil Count 0.05 10^3/uL (0.0-0.7); Absolute Monocyte Count 0.21 10^3/uL (0.1-0.8); Basophils % 0.8 %; Eosinophils % 1.3 %; HCT 39.3 % (36.0-46.0); HGB 13.2 g/dL (11.2-15.7); Lymphocytes % 46.3 %; MCH 31.3 pg (27.0-33.0); MCHC 33.6 % (32.0-36.0); MCV 93 fL (80-95); MPV 10.4 fL (8.0-11.0); Monocytes % 5.4 %; Neutrophils % 46.2 %; Platelet Count 189 10^3/uL (130-400); RBC 4.22 10^6/uL (3.93-5.22); RDW 14.2 % (11.7-14.6); RDW-SD 48.2 fL; WBC 3.89 10^3/uL (4.4-10.8)
[2024-10-14 08:44] LABS: ALT 24 U/L (14-59); AST 24 U/L (15-37); Albumin 3.9 g/dL (3.4-5.0); Alkaline Phosphatase 78 U/L (46-116); BUN 13 mg/dL (7-18); Bilirubin, Total 0.4 mg/dL (0.2-1.0); CREATININE 0.8 mg/dL (0.55-1.02); Calcium 8.5 mg/dL (8.5-10.1); Chloride 106 mmol/L (98-107); Estimated GFR 83.26 (mL/min/1.73m2); Glucose 105 mg/dL (74-106); Sodium 140 mmol/L (136-145); Total Protein 6.6 g/dL (6.4-8.2)
== END 2024-10-14 03:38 | disposition home or self-care (01) ==
LOC: LBO 03:37
PROVIDERS: PCP Family Medicine; Visit Provider Internal Medicine Hematology & Oncology
DX: C49.A3 Gastrointestinal stromal tumor of small intestine (principal)
CPT/HCPCS: 36415; 80053; 85025

== ENCOUNTER 2024-11-26 17:54 | Outpatient (REF) | payer MEDICAID, SELFPAY | END 2024-11-26 17:55 | disposition home or self-care (01) | LOC: LBN 17:54 | PROVIDERS: PCP Family Medicine; Visit Provider Obstetrics & Gynecology | DX: N76.0 Acute vaginitis (principal) | CPT/HCPCS: 87480; 87510; 87660 ==

== ENCOUNTER 2024-11-29 00:37 | Outpatient (CLI) | payer MEDICAID, SELFPAY ==
--- NOTE | 2024-11-29 09:35 | DI.MAMMO_ITS ---
Exam(s) MAMMO SCREENING EXAM: MAMMO SCREENING CLINICAL HISTORY: screening TECHNIQUE: Mammograms were interpreted according to the usual protocol including computer analysis with CAD system, tomosynthesis and C-view imaging. COMPARISON: 2015 through 2023 FINDINGS: The breasts are composed of heterogeneously dense fibroglandular densities, Breast Density category C. No suspicious masses or suspicious microcalcifications are seen. No skin thickening or abnormal axillary lymph nodes are seen. There has been no significant change from prior exams. IMPRESSION: BI-RADS Category 1, Negative mammogram. Yearly screening mammography is recommended. Breast Density: Category C - The breasts are heterogeneously dense, which may obscure small masses. Breast density Category C or D implies that the patient has dense breast tissue. Dense breast tissue can make it harder to find cancer on a mammogram. Dense breast tissue is also associated with an increased risk of breast cancer. This information about the result of the mammogram report was provided to the patient to raise their awareness. Use this report when you speak with the patient about their risks for breast cancer, which includes their family history. At that time, you may recommend additional screening tests (Ultrasound or MRI) as these tests may add significant information. A negative radiographic report should not delay biopsy if a dominant or clinically suspicious mass is present. Up to ten percent of cancers are not identified on mammography. A negative report may reinforce clinical impression. Adenosis and dense breasts may obscure an underlying neoplasm. False positive reports average 6 to 10%.
== END 2024-11-29 00:57 ==
PROVIDERS: PCP Family Medicine; Visit Provider Obstetrics & Gynecology
DX: Z12.31 Encounter for screening mammogram for malignant neoplasm of breast (principal); R92.333 Mammographic heterogeneous density, bilateral breasts
CPT/HCPCS: 77063; 77067

== ENCOUNTER 2024-12-23 03:45 | Outpatient (CLI) | payer MEDICAID, SELFPAY ==
[2024-12-23 14:02] LABS: Abs Immature Grans 0.00 10^3/uL (0.0-0.06); HCT 36.7 % (36.0-46.0); HGB 12.3 g/dL (11.2-15.7); Immature Grans % 0.0 %; MCH 32.2 pg (27.0-33.0); MCHC 33.5 % (32.0-36.0); MCV 96 fL (80-95); MPV 9.4 fL (8.0-11.0); Platelet Count 182 10^3/uL (130-400); RBC 3.82 10^6/uL (3.93-5.22); RDW 16.9 % (11.7-14.6); RDW-SD 59.5 fL; WBC 4.84 10^3/uL (4.4-10.8)
[2024-12-23 14:43] LABS: ALT 39 U/L (14-59); AST 25 U/L (15-37); Albumin 4.1 g/dL (3.4-5.0); Alkaline Phosphatase 65 U/L (46-116); Anion Gap 9.0 mmol/L (3-11); BUN 10 mg/dL (7-18); Bilirubin, Total 0.4 mg/dL (0.2-1.0); CO2 29.0 mmol/L (21.0-32.0); Calcium 8.8 mg/dL (8.5-10.1); Chloride 107 mmol/L (98-107); Estimated GFR 105.98 (mL/min/1.73m2); Glucose 111 mg/dL (74-106); Potassium 4.2 mmol/L (3.5-5.1); Sodium 145 mmol/L (136-145); Total Protein 6.8 g/dL (6.4-8.2)
== END 2024-12-23 03:46 | disposition home or self-care (01) ==
LOC: LBO 03:45
PROVIDERS: PCP Family Medicine; Visit Provider Internal Medicine Hematology & Oncology
DX: C49.A3 Gastrointestinal stromal tumor of small intestine (principal)
CPT/HCPCS: 36415; 80053; 85025

== ENCOUNTER → 2025-03-25 03:02 | Outpatient (CLI) | payer MEDICAID, SELFPAY ==
--- NOTE | 2025-03-25 | DI.MRI_ITS ---
Exam(s) MR ABDOMEN WO/W EXAM: MR ABDOMEN WO/W CLINICAL HISTORY: GIST SM INTESTINE C49.A3 METS TO LIVER C78.7 TECHNIQUE: Multiplanar multisequence MRI was performed with both pre and post contrast infused sequences. Contrast injected sequences were performed following IV injection of 10 cc of Dotarem. COMPARISON: CT CT CHEST/ABD/PEL W from 06/18/2024 MR MRI Abdomen w/ + w/o Contrast from 11/25/2024 FINDINGS: VISUALIZED LUNG BASES: No pleural effusions evident. Again noted is evidence of prior Whipple's procedure LIVER: Previously described finding described as post resection along the anterior subcapsular region of segment 4 appears slightly smaller than on the study of 11/25/2024. The previously described 2 x 1.5 lesion bridging segments 2 and 4A appears unchanged from 11/25/2024 images. The blush like 2 cm right hepatic lobe hemangioma remain stable. There are additional tiny enhancing blush like lesions in the right lobe of the liver which are isointense on the more delayed post-contrast images and most probably also small hemangiomas. BILIARY: Gallbladder surgically absent the CBD is not dilated. PANCREAS: Post Whipple. Remaining part of the pancreas appears atrophic and with unchanged mild prominence of the central duct. No new significant pancreatic findings.. SPLEEN: Spleen is not enlarged and there are no intrasplenic lesions. ADRENALS: There are no significant adrenal masses. KIDNEYS: No solid renal masses. No hydronephrosis.No cysts evident. ABDOMINAL AORTA: Not enlarged and there is no significant para-aortic adenopathy. ANTERIOR ABDOMINAL WALL/GI: There is no evidence of significant anterior abdominal wall hernia in the field of view of this study.Is no evidence of obvious bowel obstruction. OSSEOUS: There are no lytic osseous lesions in the field of view of this study. IMPRESSION: 1. Stable liver findings. No new lesions in the liver. 2. Post Whipple procedure. There are no obvious new findings in the surgical bed region. 3. There is no ascites. DATA REPOSITORY:
[2025-03-25 07:59] LABS: Abs Immature Grans 0.00 10^3/uL (0.0-0.06); HCT 34.4 % (36.0-46.0); HGB 11.8 g/dL (11.2-15.7); Immature Grans % 0.0 %; MCH 33.5 pg (27.0-33.0); MCHC 34.3 % (32.0-36.0); MCV 98 fL (80-95); MPV 9.8 fL (8.0-11.0); Platelet Count 185 10^3/uL (130-400); RBC 3.52 10^6/uL (3.93-5.22); RDW 13.9 % (11.7-14.6); RDW-SD 50.4 fL; WBC 3.51 10^3/uL (4.4-10.8)
[2025-03-25] MEDS: Gadoterate meglumine 20 ML VIAL IVP (08:13)
[2025-03-25] MEDS: Normal Saline - Diluent 50 ML VIAL IJ (08:14)
[2025-03-25 08:19] LABS: ALT 25 U/L (10-49); AST 28 U/L (<34); Albumin 4.3 g/dL (3.4-5.0); Alkaline Phosphatase 66 U/L (46-116); Anion Gap 6.2 mmol/L (3-11); BUN 16 mg/dL (9-23); Bilirubin, Total 0.60 mg/dL (0.2-1.2); CO2 27.8 mmol/L (20.0-31.0); Calcium 8.8 mg/dL (8.3-10.6); Chloride 108 mmol/L (98-107); Glucose 94 mg/dL (74-106); Potassium 3.9 mmol/L (3.5-5.1); Sodium 142 mmol/L (136-145); Total Protein 6.4 g/dL (5.7-8.2)
--- NOTE | 2025-03-25 18:16 | DI.VRAD_ITS ---
PROCEDURE INFORMATION: Exam: MR Abdomen Without and With Contrast Exam date and time: 03/25/2025 07:57 Age: 64 years old Clinical indication: Other: Previous whipple procedure, ist tumor asses liver mets, compare to previous scans TECHNIQUE: Imaging protocol: Magnetic resonance imaging of the abdomen without and with contrast. Contrast material: 10 ML DOTAREM IV; Contrast volume: 10 ml; Contrast route: INTRAVENOUS (IV); COMPARISON: 1. MRI Abdomen w/ + w/o Contrast 11/25/2024 11:[address] CHEST/ABD/PEL W 06/18/2024 15:25 FINDINGS: Liver: The 20 x 11 mm non hypervascular medial left hepatic lesion is stable. The blush like approximately 22 mm right hepatic hemangioma is stable. There are additional miniscule peripherally enhancing blush like lesions in the right lobe of the liver, which are isointense on more delayed phases of imaging, which are almost certainly incidental benign flash filling hemangiomas. Gallbladder and biliary ducts: Cholecystectomy. Pancreas: Postsurgical changes in pancreas, extremely diminutive pancreatic body with minor chronic pancreatic ductal dilation, similar to prior. Spleen: No splenomegaly. Adrenal glands: No mass. Kidneys: . No solid mass. No hydronephrosis. Stomach and bowel: Visualized stomach and intestines are unremarkable. Intraperitoneal space: No free fluid. Vasculature: No abdominal aortic aneurysm. Lymph nodes: No enlarged nodes. Bones/joints: . No suspicious lesions. Soft tissues: Unremarkable. Other findings: Motion artifact in the abdomen. IMPRESSION: Stable hepatic findings. Stable small left hepatic presumed metastasis. Stable benign-appearing right sided hemangiomas. Dictated and Authenticated by: Ivon Falcon MD. Orderin MONIQUE PARNELL MD
== END ==
LOC: DI 03:03
PROVIDERS: PCP Family Medicine; Visit Provider Nurse Practitioner Family
DX: C49.A3 Gastrointestinal stromal tumor of small intestine (principal); C78.7 Secondary malignant neoplasm of liver and intrahepatic bile duct
CPT/HCPCS: 36415; 74183; 80053; 85025